=== PATIENT | female | born 1955 | race Caucasian/White ===

== ENCOUNTER 2019-05-02 13:42 | Emergency (ER) | payer MEDICARE, SELFPAY ==
[2019-05-02 14:54] VITALS: BP 157/75; PULSE 90; RESP 20; TEMP 36.4; O2SAT 100
--- NOTE | 2019-05-02 15:29 | ED.UPPEXIN ---
HPI - Extremity Injury (Upper) General Chief Complaint: Extremity Injury, Upper Stated Complaint: rhumatoid Arthritis Time Seen by Provider: 05/02/19 15:20 Source: patient and RN notes reviewed Mode of arrival: ambulatory Limitations: no limitations History of Present Illness HPI narrative: Patient presents today complaining of swelling and pain to her bilateral hands x2 weeks, worse since yesterday. States she has been diagnosed with osteoarthritis, but her doctors are suspicious that she has rheumatoid arthritis. She has an appointment with a graduate assistant athletic trainer, but not till August. She currently rates her pain 12/23 and has been taking ibuprofen with mild relief. She also has [place] for chronic migraines, but this is not providing relief. She was on a short course of steroids in January, which helped with this pain. She is requesting another course today. MD complaint: injury to: hand Related Data Home Medications Medication Instructions Recorded Confirmed cholecalciferol (vitamin D3) 1,250 50,000 unit PO WEEKLY 02/07/19 05/02/19 mcg (50,000 unit) tablet colchicine 0.6 mg tablet 0.6 mg PO DAILY 02/07/19 05/02/19 conjugated estrogens 0.625 mg 0.625 mg PO DAILY 02/07/19 05/02/19 tablet duloxetine 60 mg capsule,delayed 60 mg PO DAILY cap 02/07/19 05/02/19 release ergocalciferol (vitamin D2) 1,250 50,000 unit PO WEEKLY 02/07/19 05/02/19 mcg (50,000 unit) capsule lisinopril 20 1 tablet PO DAILY 02/07/19 05/02/19 mg-hydrochlorothiazide 12.5 mg tablet Allergies Allergy/AdvReac Type Severity Reaction Status Date / Time prochlorperazine Allergy Intermediate Chest Verified 05/02/19 15:07 tightness metoclopramide Allergy Mild Jittery Verified 05/02/19 15:07 nalbuphine Allergy Unknown Unknown Verified 05/02/19 15:07 promethazine Allergy Unknown Unknown Verified 05/02/19 15:07 sumatriptan Allergy Unknown Unknown Verified 05/02/19 15:07 Review of Systems Review of Systems: Narrative: CONSTITUTIONAL: Denies body aches, fever, chills, or sweats. EYES: Denies visual changes, redness, or discharge. ENT: Denies rhinorrhea, congestion, sore throat, or otalgia. CARDIOVASCULAR: Denies chest pain, palpitations, or edema. RESPIRATORY: Denies cough or dyspnea. GASTROINTESTINAL: Denies abdominal pain, nausea, vomiting, or diarrhea. GENITOURINARY: Denies dysuria or hematuria. SKIN: Denies rash, itching, or wounds. MUSCULOSKELETAL: Denies back pain, or myalgia.Bilateral hand and finger pain and swelling NEUROLOGIC: Denies headache, numbness, tingling, or weakness. PSYCH: Denies depression or anxiety. [facility] Past Medical History Medical History (Updated 05/02/19 @ 15:32 by Mendy Gillette, REI, ) Acute non-recurrent maxillary sinusitis Arthritis Social History Social History Smoking status: Never smoker Alcohol intake: never Comments At time of signature, I have reviewed and agree with nursing past medical, surgical, social and family history unless otherwise noted. Please see nursing chart for further information. There is no relevant family history pertinent to the presenting complaint Exam Narrative: Exam Narrative: GENERAL: Well-appearing, well-nourished, and in no acute distress. HEAD: Normocephalic, atraumatic. EYES: EOMI. No redness or drainage. Conjunctivae normal. ENT: Mucous membranes pink and moist. NECK: Normal AROM. CHEST: No respiratory distress. MUSCULOSKELETAL: Mild edema to all fingers with tenderness with palpation of the joints. Patient is unable to fully make a fist due to swelling and pain. SKIN: Warm, dry, no rash. NEURO: No focal deficits. Alert and oriented x3. Gait steady. PSYCH: Normal affect. No signs of depression or anxiety. Course Vital Signs Vital signs: Vital Signs Temperature 97.6 F 05/02/19 14:54 Pulse Rate 90 05/02/19 14:54 Respiratory Rate 20 05/02/19 14:54 Blood Pressure 157/75 H
== END 2019-05-02 15:35 | disposition home or self-care (01) ==
PROVIDERS: Emergency Provider Nurse Practitioner; PCP Family Medicine
DX: M25.541 Pain in joints of right hand (principal); M25.542 Pain in joints of left hand; M19.90 Unspecified osteoarthritis, unspecified site
CPT/HCPCS: 99213; G0463

== ENCOUNTER 2019-10-06 13:57 | Emergency (ER) | payer MEDICARE, SELFPAY ==
[2019-10-06 14:15] VITALS: BP 127/62; PULSE 88; RESP 18; TEMP 36.4; O2SAT 98
--- NOTE | 2019-10-06 14:39 | ED.GENADULT ---
HPI - General Adult General Chief complaint: Extremity Injury, Upper Stated complaint: pain and swelling in hands Time Seen by Provider: 10/06/19 14:29 Source: patient and RN notes reviewed Mode of arrival: ambulatory Limitations: no limitations History of Present Illness HPI narrative: Patient presents today with a 1 week history of severe bilateral hand pain and swelling. She has been seen at [facility] for same complaint in April and was subsequently seen by rheumatology. States she hasn't been formally diagnosed with RA but was started on Plaquenil. States she has not yet started the Plaquenil because she had some reservations, mostly due to the doctor that prescribed it. She has an appt with her PCP in 5 days. She is hoping to get started on a course of steroids today, which has helped in the past. She has been taking motrin and occasionally [place]. Reports the motrin helps more than the [place] does. MD complaint: bilateral hand pain and swelling. Related Data Home Medications Medication Instructions Recorded Confirmed colchicine 0.6 mg tablet 0.6 mg PO DAILY 02/07/19 10/06/19 conjugated estrogens 0.625 mg 0.625 mg PO DAILY 02/07/19 10/06/19 tablet duloxetine 60 mg capsule,delayed 60 mg PO DAILY cap 02/07/19 10/06/19 release lisinopril 20 1 tablet PO DAILY 02/07/19 10/06/19 mg-hydrochlorothiazide 12.5 mg tablet cholecalciferol (vitamin D3) 1,250 50,000 unit PO WEEKLY 07/11/19 10/06/19 mcg (50,000 unit) tablet Allergies Allergy/AdvReac Type Severity Reaction Status Date / Time prochlorperazine Allergy Intermediate Chest Verified 10/06/19 14:29 tightness metoclopramide Allergy Mild Jittery Verified 10/06/19 14:29 nalbuphine Allergy Unknown Unknown Verified 10/06/19 14:29 promethazine Allergy Unknown Unknown Verified 10/06/19 14:29 sumatriptan Allergy Unknown Unknown Verified 10/06/19 14:29 Review of Systems Review of Systems: Narrative: CONSTITUTIONAL: Denies body aches, fever, chills, or sweats. EYES: Denies visual changes, redness, or discharge. ENT: Denies rhinorrhea, congestion, sore throat, or otalgia. CARDIOVASCULAR: Denies chest pain, palpitations, or edema. RESPIRATORY: Denies cough or dyspnea. GASTROINTESTINAL: Denies abdominal pain, nausea, vomiting, or diarrhea. GENITOURINARY: Denies dysuria or hematuria. SKIN: Denies rash, itching, or wounds. MUSCULOSKELETAL: Denies back pain, or myalgia. +pain and swelling to bilateral finger joints. NEUROLOGIC: Denies headache, numbness, tingling, or weakness. PSYCH: Denies depression or anxiety. [facility] Past Medical History Medical History (Updated 10/06/19 @ 14:59 by Mendy Gillette, [facility], ) Acute non-recurrent maxillary sinusitis Arthritis Bilateral hand pain Carpal tunnel syndrome Chronic anxiety Inflammatory arthritis (~2014) Insomnia Seasonal allergic rhinitis Tinnitus Vitamin D insufficiency Surgical History Surgical History (Updated 09/06/19 @ 11:46 by Shabnam Nicholson MA) H/O: hysterectomy Social History Social History Smoking status: Never smoker Alcohol intake: never Comments At time of signature, I have reviewed and agree with nursing past medical, surgical, social and family history unless otherwise noted. Please see nursing chart for further information. There is no relevant family history pertinent to the presenting complaint Exam Narrative: Exam Narrative: GENERAL: Well-appearing, well-nourished, and in no acute distress. HEAD: Normocephalic, atraumatic. EYES: EOMI. No redness or drainage. Conjunctivae normal. ENT: Mucous membranes pink and moist. NECK: Normal AROM. CHEST: No respiratory distress. EXTREMITIES: Stiffness and decreased ROM of fingers when trying to make fists and extend. No redness noted to the hand or fingers. Mild swelling to the bilateral 3rd fingers and left 4th finger. Distal sensation intact. Capillary refill normal.
[2019-10-06] MEDS: methylPREDNISolone SOD SUCC 125 MG VIAL IM (14:48)
== END 2019-10-06 15:08 | disposition home or self-care (01) ==
PROVIDERS: Emergency Provider Nurse Practitioner; PCP Family Medicine
DX: M79.641 Pain in right hand (principal); M79.642 Pain in left hand; F41.9 Anxiety disorder, unspecified; E55.9 Vitamin D deficiency, unspecified
CPT/HCPCS: 96372; 99213; G0463; J2930

== ENCOUNTER 2020-01-31 09:05 | Outpatient (NON) | payer MEDICARE, SELFPAY ==
[2020-02-01 18:24] LABS: SARS-CoV-2 RNA PCR Negative
== END 2020-01-31 09:06 ==
LOC: ANHCOVIDDT 09:06
PROVIDERS: PCP Family Medicine; Visit Provider Family Medicine
DX: Z20.828 Contact with and (suspected) exposure to other viral communicable diseases (principal); J20.9 Acute bronchitis, unspecified
CPT/HCPCS: 87635; C9803; U0003

== ENCOUNTER → 2020-02-06 09:04 | Outpatient (CLI) | payer MEDICARE, SELFPAY ==
--- NOTE | ~2020-02-06 | XR_ITS ---
XR chest 2V 02/06/2020 09:24 Indication: Shortness of breath Procedure: 2 view chest Comparison: No prior studies for comparison. Findings: Calcified granuloma left upper lung. No focal air space disease, pulmonary edema, pleural e ffusion or suspected pneumothorax. The lungs are hyperinflated which is consistent with, but not diag nostic of chronic obstructive pulmonary disease. Impression: 1: No acute cardiopulmonary disease. Reviewed, dictated and finalized at location A. MAN Impression: 1: No acute cardiopulmonary disease.
== END ==
PROVIDERS: PCP Family Medicine; Visit Provider Family Medicine
DX: J20.9 Acute bronchitis, unspecified (principal)
CPT/HCPCS: 71046

== ENCOUNTER 2021-02-23 13:59 | Emergency (ER) | payer MEDICARE, SELFPAY ==
[2021-02-23 14:04] VITALS: BP 145/69; PULSE 105; RESP 20; TEMP 36.3; O2SAT 100
--- NOTE | 2021-02-23 14:14 | ED.GENADULT ---
HPI - General Adult General Chief complaint: Upper Respiratory Infection Stated complaint: upper respiratory Time Seen by Provider: 02/23/21 14:16 Source: patient Mode of arrival: ambulatory Limitations: no limitations History of Present Illness HPI narrative: 65-year-old female patient presents to the [facility] with complaints of upper respiratory symptoms for the past 3 days. Patient states she has had a low-grade fever of about 100, congestion, runny nose and slight cough. Little bit of shortness of breath. Patient states she is fully vaccinated against Covid. Denies having a booster shot. Patient states she has had her influenza shot. Patient states she just been taking [id number] ibuprofen for her symptoms. Related Data Home Medications Medication Instructions Recorded Confirmed leflunomide 10 mg tablet 10 mg PO DAILY 07/17/20 12/13/20 Allergies Allergy/AdvReac Type Severity Reaction Status Date / Time prochlorperazine Allergy Intermediate Chest Verified 02/23/21 14:21 tightness metoclopramide Allergy Mild Jittery Verified 02/23/21 14:21 nalbuphine Allergy Unknown Unknown Verified 02/23/21 14:21 promethazine Allergy Unknown Unknown Verified 02/23/21 14:21 sumatriptan Allergy Unknown Unknown Verified 02/23/21 14:21 Review of Systems Review of Systems: CONSTITUTIONAL: Positive subjective fever, denies chills, or sweats. Positive body aches EYES: Denies visual changes, redness, or discharge. ENT: Positive rhinorrhea, congestion, denies sore throat, or otalgia. CARDIOVASCULAR: Denies chest pain, palpitations, or edema. RESPIRATORY: Positive mild cough, positive dyspnea. GASTROINTESTINAL: Denies abdominal pain, nausea, vomiting, or diarrhea. GENITOURINARY: Denies dysuria or hematuria. SKIN: Denies rash or itching. MUSCULOSKELETAL: Denies back pain, joint pain, or myalgia. NEUROLOGIC: Denies headache, numbness, or weakness. PSYCHIATRIC: Denies anxiety or depression. [facility] Past Medical History Medical History (Updated 02/23/21 @ 14:45 by REI Temple) Abnormal mammogram normal mammogram on 01/15/2021 with recheck in 1 year Abnormal serum iron level Abscessed tooth Acute bronchitis Acute non-recurrent maxillary sinusitis Anemia Arthritis Bilateral hand pain BMI 24.0-24.9, adult Carpal tunnel syndrome Chronic anxiety Cough Exposure to COVID-19 virus Hypertension Inflammatory arthritis (~2015) Insomnia Rheumatoid arthritis Seasonal allergic rhinitis Tinnitus UTI (urinary tract infection) Vitamin D insufficiency Surgical History Surgical History H/O: hysterectomy Family History Family History Mother Patient's mother is , Onset Age: 86 Father Family history of malignant neoplasm of brain, Onset Age: 58 Social History Social History Smoking status: Never smoker Alcohol intake: never Substance use: never Substance use type: does not use Comments At the time of my signature I agree with nursing past medical history, surgical, social, and family history. There is no relevant family history pertinent to the presenting complaint. Exam Narrative: GENERAL: Well-appearing, well-nourished, and in no acute distress. HEAD: Normocephalic, atraumatic. EYES: PERRLA and EOMI. ENT: Nares clear, no rhinorrhea or epistaxis. Mucous membranes moist. Posterior pharynx with no erythema, tonsil management, exudates or lesions present. Bilateral TMs are clear with no erythema or foreign bodies in the canal. NECK: Supple. No lymphadenopathy CHEST: Clear to auscultation. No respiratory distress. HEART: Regular rate and rhythm. No murmur heard. Normal peripheral pulses. ABDOMEN: Soft, nontender, nondistended, normal active bowel sounds. EXTREMITIES: Normal range of motion. No edema. SKIN: Warm, dry,
[2021-02-25 14:20] LABS: SARS-CoV-2 RNA PCR Negative
== END 2021-02-23 14:45 | disposition home or self-care (01) ==
PROVIDERS: Emergency Provider Nurse Practitioner Family; PCP Family Medicine
DX: J06.9 Acute upper respiratory infection, unspecified (principal); I10 Essential (primary) hypertension; Z20.822 Contact with and (suspected) exposure to COVID-19
CPT/HCPCS: 87426; 87804; 99213; C9803; G0463; U0003; U0005

== ENCOUNTER 2021-05-25 10:20 | Emergency (ER) | payer MEDICARE, SELFPAY ==
[2021-05-25 10:26] VITALS: BP 151/74; PULSE 94; RESP 16; TEMP 36.2; O2SAT 98
[2021-05-25 10:38] VITALS: BP 151/74; PULSE 94; RESP 16; TEMP 36.2; O2SAT 98
== END 2021-05-25 10:39 | disposition left against medical advice (07) ==
LOC: EXPBETH 10:23
PROVIDERS: Emergency Provider Nurse Practitioner Family; PCP Family Medicine
DX: Z53.21 Procedure and treatment not carried out due to patient leaving prior to being seen by health care provider (principal)
CPT/HCPCS: 99199

== ENCOUNTER 2021-08-06 10:17 | Emergency (ER) | payer MEDICARE, SELFPAY ==
[2021-08-06 10:21] VITALS: BP 144/74; PULSE 98; RESP 16; TEMP 36.3; O2SAT 99
--- NOTE | 2021-08-06 11:25 | ED.URI ---
HPI - URI/Sore Throat General Chief Complaint: Upper Respiratory Infection Stated Complaint: sore throat achey chest congestion Time Seen by Provider: 08/06/21 11:26 Source: patient and RN notes reviewed Mode of arrival: ambulatory Limitations: no limitations History of Present Illness HPI Narrative: 66-year-old female with history of rheumatoid arthritis presents with concern for 3-day history of sore throat, headache, body aches, cough. She reports she took a COVID test at home which was negative. She has been using ibuprofen to treat her symptoms, reports it helps her headache but not other symptoms. She denies fever, shortness of breath, nasal congestion. Denies known sick contacts. MD elicited complaint: cough and sore throat Related Data Allergies Allergy/AdvReac Type Severity Reaction Status Date / Time prochlorperazine Allergy Intermediate Chest Verified 08/06/21 10:45 tightness metoclopramide Allergy Mild Jittery Verified 08/06/21 10:45 nalbuphine Allergy Unknown Rash Verified 08/06/21 10:45 promethazine Allergy Unknown Rash Verified 08/06/21 10:45 sumatriptan Allergy Unknown Rash Verified 08/06/21 10:45 Review of Systems Review of Systems: CONSTITUTIONAL: Report malaise. Denies chills, sweats, or fever. EYES: Denies visual changes, redness, or discharge. ENT: Reports rhinorrhea, sore throat. Denies congestion, sinus pain, otalgia CARDIOVASCULAR: Denies chest pain, palpitations, or edema. RESPIRATORY: Reports cough. Denies dyspnea. GASTROINTESTINAL: Denies abdominal pain, nausea, vomiting, diarrhea SKIN: Denies rash or itching. MUSCULOSKELETAL: Denies myalgia. NEUROLOGIC: Reports headache. All systems reviewed & are unremarkable except as noted in HPI and below PMFSH Past Medical History Medical History Abnormal mammogram normal mammogram on 01/15/2021 with recheck in 1 year Abnormal serum iron level Abscessed tooth Acute bronchitis Acute non-recurrent maxillary sinusitis Anemia Arthritis Bilateral hand pain BMI 24.0-24.9, adult Carpal tunnel syndrome Chronic anxiety Cough Exposure to COVID-19 virus Hypertension Inflammatory arthritis (~2014) Insomnia Rheumatoid arthritis Seasonal allergic rhinitis Tinnitus UTI (urinary tract infection) Vitamin D insufficiency (~01/2021) Surgical History Surgical History H/O: hysterectomy Family History Family History Mother Patient's mother is , Onset Age: 86 Father Family history of malignant neoplasm of brain, Onset Age: 58 Social History Social History Smoking status: Never smoker Alcohol intake: never Substance use: never Substance use type: does not use Comments At time of signature, agree with nursing past medical, surgical, social and family history. There is no relevant family history pertinent to the presenting complaint Exam Narrative: GENERAL: Nontoxic-appearing and in no acute distress. HEAD: Normocephalic EYES: PERRLA, conjunctivae clear ENT: Nares clear, turbinates edematous and erythematous, clear discharge. Mucous membranes moist. TM pearly l[place]o with dull light reflex bilaterally; no tragal tenderness. Oropharynx not erythematous without lesions. Tonsils not enlarged and without exudate, no drooling, no hoarseness, no trismus, uvula midline. NECK: Supple. No lymphadenopathy CHEST: Clear to auscultation, breath sounds equal. No wheezing, rhonchi, rales, or stridor. No respiratory distress, speaks in full sentences. HEART: Regular rate and rhythm. No murmur heard. SKIN: Warm, dry, no rash. NEURO: Alert and oriented x3. PSYCH: Normal mood and affect Course Course Emergency Course: Patient is aware of diagnosis, understands and agrees to treatment plan. Anticipatory guidance given. Patient agrees to follow-up as directe
== END 2021-08-06 11:38 | disposition home or self-care (01) ==
PROVIDERS: Emergency Provider Nurse Practitioner; PCP Family Medicine
DX: B34.9 Viral infection, unspecified (principal); Z20.822 Contact with and (suspected) exposure to COVID-19; M19.90 Unspecified osteoarthritis, unspecified site; I10 Essential (primary) hypertension; M06.9 Rheumatoid arthritis, unspecified
CPT/HCPCS: 87081; 87426; 87804; 87880; 99213; C9803; G0463

== ENCOUNTER 2022-02-02 12:53 | Emergency (ER) | payer MEDICARE, SELFPAY ==
--- NOTE | ~2022-02-02 | XR_ITS ---
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 RESULT: Lines, tubes, and devices: None. Lungs and pleura: No focal consolidation or pneumothorax. Right upper lobe scar. Left upper lobe marta cified granuloma. Mild bilateral upper lung fibrolinear scarring with hilar retraction. Cardiomediastinal silhouette: Stable. Other: No acute osseous or upper abdominal finding. IMPRESSION: No acute cardiopulmonary process. Reviewed, dictated and finalized at location K. WRAPPING MACHINE OPERATOR
--- NOTE | ~2022-02-02 | CT_ITS ---
EXAMINATION: CTA chest PE protocol DATE: 02/02/2022 17:52 INDICATION: dimer elevation TECHNIQUE: Computed tomography angiography (CTA) of the chest was performed with 100 mL Omnipaque-350 intravenous contrast timed to evaluate the pulmonary arteries. Coronal maximum intensity projection 3D-reconstructions were created by the technologist. The dose-length product (DLP) was 215.46 mGy-cm. Automated exposure control and iterative reconstruction technique were employed. COMPARISON: X-ray chest, same date. FINDINGS: Lung parenchyma and airways: Small areas of tree-in-bud opacities in the posterior left upper lobe an d lateral mid left lower lobe. Calcified left upper lobe granuloma. Pleura: Unremarkable. Thoracic inlet, axillae and chest wall: Unremarkable. Thoracic aorta: Mild arch calcification. Mediastinum: Small hiatal hernia. Heart and pericardium: Normal. Coronary artery calcifications: Absent. Upper abdomen: No significant finding. Granulomatous calcifications in the spleen. Bilateral renal co rtical atrophy. Bones: No acute osseous finding. Pulmonary arteries: Study quality: Adequate. No pulmonary emboli detected. IMPRESSION: No CT evidence of acute pulmonary embolus. Small areas of tree and bud opacities in the left lung, as can be seen with atypical infection (MAC, TB, fungal), ABPA, airways disease (CF, bronchiectasis), a nd aspiration. Reviewed, dictated and finalized at location K. MIXER MACHINE IMPRESSION: No CT evidence of acute pulmonary embolus. Small areas of tree and bud opacitie s in the left lung, as can be seen with atypical infection (MAC, TB, fungal), A BPA, airways disease (CF, bronchiectasis), and aspiration.
[2022-02-02 13:37] VITALS: BP 120/74; PULSE 130; RESP 16; TEMP 36.2; O2SAT 98
[2022-02-02] MEDS: LACTATED RINGERS 1,000 ML 500 ML IV CONT (16:03)
[2022-02-02] MEDS: KETOROLAC 15 MG/ML VIAL (*BKC) IV PUSH (16:23)
[2022-02-02 16:27] VITALS: BP 147/80; PULSE 88; RESP 18; O2SAT 100
[2022-02-02 16:38] LABS: D Dimer 0.74 ug/mL (<0.48)
[2022-02-02 17:03] VITALS: PULSE 85
[2022-02-02 17:45] LABS: Estimated CRCL calculation 38 ml/min; Estimated Glomerular Filt Rate 55
--- NOTE | 2022-02-02 18:44 | ED.GENADULT ---
HPI - General Adult General Chief complaint: Weakness Stated complaint: Covid+, thinks she is dehydrated Time Seen by Provider: 02/02/22 14:55 History of Present Illness HPI narrative: 66-year-old female presents for evaluation. Patient was diagnosed with COVID 1911 days ago and still feels a dull headache, rundown, body aches and a dry cough. Patient states the symptoms have improved from how poorly she felt a few days ago and her headache is mostly resolved although her family urged her to come in due to the duration of her symptoms. Patient has had a COVID-vaccine and booster. Related Data Allergies Allergy/AdvReac Type Severity Reaction Status Date / Time prochlorperazine Allergy Intermediate Chest Verified 02/02/22 15:52 tightness nalbuphine Allergy Unknown Rash Verified 02/02/22 15:40 promethazine Allergy Unknown Rash Verified 02/02/22 15:40 sumatriptan Allergy Unknown Rash Verified 02/02/22 15:40 metoclopramide AdvReac Mild Jittery Verified 02/02/22 15:52 Review of Systems Review of Systems: CONSTITUTIONAL: Denies fever, chills, or sweats. EYES: Denies visual changes, redness, or discharge. ENT: Denies rhinorrhea, congestion, sore throat, or otalgia. CARDIOVASCULAR: Denies chest pain, palpitations, or edema. RESPIRATORY: Denies cough or dyspnea. GASTROINTESTINAL: Denies abdominal pain, nausea, vomiting, or diarrhea. GENITOURINARY: Denies dysuria or hematuria. SKIN: Denies rash or itching. MUSCULOSKELETAL: Denies back pain, joint pain, or myalgia. NEUROLOGIC: Denies headache, numbness, or weakness. PSYCHIATRIC: Denies anxiety or depression. [facility] Past Medical History Medical History Abnormal mammogram normal mammogram on 01/15/2021 with recheck in 1 year Abnormal serum iron level Total iron elevated at 217 with 58% saturation and ferritin normal at 32 on 11/25/2021 with hemoglobin 14.3. Abscessed tooth Acute bronchitis Acute non-recurrent maxillary sinusitis Anemia Hemoglobin normal at 14.3 with vitamin B12 770 and folic acid 11.3 with iron 217 on 11/25/2021. Arthritis Bilateral hand pain BMI 24.0-24.9, adult BMI 25.0-25.9,adult BMI 26.0-26.9,adult Carpal tunnel syndrome Chronic anxiety Cough COVID 01/22/22 Exposure to COVID-19 virus Hypertension Inflammatory arthritis (~2014) Insomnia Overweight (BMI 25.0-29.9) Rheumatoid arthritis Seasonal allergic rhinitis Tinnitus UTI (urinary tract infection) Vitamin D insufficiency (~01/2021) Surgical History Surgical History H/O: hysterectomy Family History Family History Mother Patient's mother is , Onset Age: 86 Father Family history of malignant neoplasm of brain, Onset Age: 58 Social History Social History (Updated 01/09/22 @ 10:13 by Manjula Quigley MA) Smoking status: Never smoker Alcohol intake: never Substance use: never Substance use type: does not use Lack of Transportation: No Lack of Food: Never True Current Housing: I Have Housing Concerned About Future Housing: No Difficulty Paying Gas/Electric Bills: No Difficulty Paying for Meds: No Currently Unemployed: No Education: High School Diploma/GED Difficulty w/ Childcare or Family Care: No Exam Narrative: GENERAL: Well-appearing, well-nourished, and in no acute distress. HEAD: Normocephalic, atraumatic. EYES: PERRLA and EOMI. ENT: Nares clear, no rhinorrhea or epistaxis. Mucous membranes moist. NECK: Supple. CHEST: Clear to auscultation. No respiratory distress. HEART: Tachycardic rate and rhythm. No murmur heard. Normal peripheral pulses. ABDOMEN: Soft, nontender, nondistended, normal active bowel sounds. EXTREMITIES: Normal range of motion. No edema. SKIN: Warm, dry, no rash. NEURO: No focal deficits. Alert and oriented x3. PSYCH: Normal mood and affect. Course Vital Signs Vit
[2022-02-02 19:19] VITALS: BP 152/85; PULSE 80; RESP 18; O2SAT 99
== END 2022-02-02 19:21 | disposition home or self-care (01) ==
PROVIDERS: Emergency Provider Emergency Medicine; PCP Family Medicine
DX: U07.1 COVID-19 (principal); I10 Essential (primary) hypertension; E55.9 Vitamin D deficiency, unspecified; M06.9 Rheumatoid arthritis, unspecified; M19.90 Unspecified osteoarthritis, unspecified site; F41.9 Anxiety disorder, unspecified; E66.3 Overweight; Z68.23 Body mass index [BMI] 23.0-23.9, adult; Z87.440 Personal history of urinary (tract) infections; Z86.2 Personal history of diseases of the blood and blood-forming organs and certain disorders involving the immune mechanism; Z90.710 Acquired absence of both cervix and uterus
CPT/HCPCS: 36415; 71045; 71275; 85380; 96361; 96374; 99284; J1885; J7120; Q9967

== ENCOUNTER 2022-03-01 12:58 | Emergency (ER) | payer MEDICARE, SELFPAY ==
[2022-03-01 13:09] VITALS: BP 153/82; PULSE 95; RESP 16; TEMP 36.2; O2SAT 98
--- NOTE | 2022-03-01 13:45 | ED.GENADULT ---
HPI - General Adult General Chief complaint: Upper Respiratory Infection Stated complaint: sinus / uti Source: patient Mode of arrival: ambulatory Limitations: no limitations History of Present Illness HPI narrative: Patient presents for evaluation of sick symptoms since yesterday. Symptoms include sinus congestion, postnasal drainage, right-sided otalgia, sore throat, body aches, right-sided frontal headache. She denies any fever, chills, nausea, vomiting, diarrhea, cough, shortness of breath. She has had several points of sick contacts recently, including influenza. 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 She does not smoke. She had COVID last month. She has also had some urinary symptoms for several days including dysuria and urinary frequency. She states frequency has improved and now she has hesitancy. No abdominal pain or low back pain. She has a hx of recurrent UTI's. Related Data Home Medications Medication Instructions Recorded Confirmed prednisone 5 mg tablet mg 03/01/22 Allergies Allergy/AdvReac Type Severity Reaction Status Date / Time prochlorperazine Allergy Intermediate Chest Verified 02/02/22 15:52 tightness nalbuphine Allergy Unknown Rash Verified 02/02/22 15:40 promethazine Allergy Unknown Rash Verified 02/02/22 15:40 sumatriptan Allergy Unknown Rash Verified 02/02/22 15:40 metoclopramide AdvReac Mild Jittery Verified 02/02/22 15:52 Review of Systems Review of Systems: CONSTITUTIONAL: Denies fever, chills, or sweats. EYES: Denies visual changes, redness, or discharge. ENT: Reports sinus congestion, postnasal drainage, sore throat, right-sided otalgia. CARDIOVASCULAR: Denies chest pain, palpitations, or edema. RESPIRATORY: Denies cough or dyspnea. GASTROINTESTINAL: Denies abdominal pain, nausea, vomiting, or diarrhea. GENITOURINARY: Reports recent urinary frequency, now resolved. Reports dysuria and urinary hesitancy.. SKIN: Denies rash or itching. MUSCULOSKELETAL: Reports generalized body aches. NEUROLOGIC: Reports headache. Denies numbness, dizziness, or weakness. PSYCHIATRIC: Denies anxiety or depression. [facility] Past Medical History Medical History Abnormal mammogram normal mammogram on 01/15/2021 with recheck in 1 year Abnormal serum iron level Total iron elevated at 217 with 58% saturation and ferritin normal at 32 on 11/25/2021 with hemoglobin 14.3. Abscessed tooth Acute bronchitis Acute non-recurrent maxillary sinusitis Anemia Hemoglobin normal at 14.3 with vitamin B12 770 and folic acid 11.3 with iron 217 on 11/25/2021. Arthritis Bilateral hand pain BMI 24.0-24.9, adult BMI 25.0-25.9,adult BMI 26.0-26.9,adult Carpal tunnel syndrome Chronic anxiety Cough COVID 01/22/22 Exposure to COVID-19 virus Hypertension Inflammatory arthritis (~2014) Insomnia Overweight (BMI 25.0-29.9) Rheumatoid arthritis Seasonal allergic rhinitis Tinnitus UTI (urinary tract infection) Vitamin D insufficiency (~01/2021) Surgical History Surgical History H/O: hysterectomy Family History Family History Mother Patient's mother is , Onset Age: 86 Father Family history of malignant neoplasm of brain, Onset Age: 58 Social History Social History (Updated 01/09/22 @ 10:13 by Manjula uQigley MA) Smoking status: Never smoker Alcohol intake: never Substance use: never Substance use type: does not use Lack of Transportation: No Lack of Food: Never True Current Housing: I Have Housing Concerned About Future Housing: No Difficulty Paying Gas/Electric Bills: No Difficulty Paying for Meds: No Currently Unemployed: No Education: High School Diploma/GED Difficulty w/ Childcare or Family Care: No Course Course Emergency Course: This i
== END 2022-03-01 14:39 | disposition home or self-care (01) ==
PROVIDERS: Emergency Provider Nurse Practitioner; PCP Family Medicine
DX: J06.9 Acute upper respiratory infection, unspecified (principal); R30.0 Dysuria; M19.90 Unspecified osteoarthritis, unspecified site; Z86.16 Personal history of COVID-19; I10 Essential (primary) hypertension; M06.9 Rheumatoid arthritis, unspecified
CPT/HCPCS: 87081; 87804; 99213; G0463

== ENCOUNTER 2022-04-17 10:38 | Outpatient (CLI) | payer MEDICARE, SELFPAY ==
--- NOTE | ~2022-04-17 | CT_ITS ---
EXAMINATION: CT chest high resolution wo pr DATE: 04/17/2022 10:54 INDICATION: Shortness of breath TECHNIQUE: Computed tomography (CT) of the chest was performed without intravenous contrast. The dose -length product (DLP) was 161.73 mGy-cm. 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 COMPARISON: 02/02/2022 FINDINGS: The previously described airspace opacities of the left upper and lower lobes have resolved , consistent with resolved infection/inflammation. The lungs are free of acute opacities. No pleural effusion or pneumothorax. No pathologically enlarged thoracic lymph nodes are identified. The heart s ize is normal. There is moderate thoracic spondylosis. Calcified pulmonary nodules are consistent wit h old granulomatous disease. A small hiatal hernia is noted. Punctate calcifications in otherwise nor mal appearing liver and spleen likely represent healed granulomatous disease. IMPRESSION: 1. Resolved airspace opacities of the left lung, consistent with resolved infection/inflammation. Reviewed, dictated and finalized at location L. [facility] IMPRESSION: 1. Resolved airspace opacities of the left lung, consistent with resolved infec tion/inflammation.
== END 2022-04-17 10:39 ==
LOC: MICIMG 10:39
PROVIDERS: PCP Family Medicine; Visit Provider Family Medicine
DX: R06.00 Dyspnea, unspecified (principal); U09.9 Post COVID-19 condition, unspecified; R91.8 Other nonspecific abnormal finding of lung field
CPT/HCPCS: 71250

== ENCOUNTER 2022-09-04 09:24 | Emergency (ER) | payer MEDICARE, SELFPAY ==
[2022-09-04 09:28] VITALS: BP 130/72; PULSE 83; RESP 20; TEMP 36.6; O2SAT 98
[2022-09-04 09:40] VITALS: O2SAT 98
--- NOTE | 2022-09-04 09:42 | ED.SKABFB ---
HPI - Skin/Abscess/Foreign Bdy General Chief complaint: Skin/Abscess/Foreign Body Stated complaint: Wound on left leg History of Present Illness HPI narrative: Pt is a 67 y/o female, PMHx of RA and gout, presents to via POV with left anterior marquez wound that has delayed healing. 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 she reports sheering/skin tear injuries that she has treated at home with Peroxide, soap and water cleaning and topical antibiotic ointment. She notes over the past couple of days, the area has become painful and the wound is starting to ooze. She denies associated fevers or chills, she denies FB risk and her tetanus is UTD Related Data Home Medications Medication Instructions Recorded Confirmed methotrexate sodium 2.5 mg tablet 2.5 mg PO 4XW 03/12/22 09/04/22 prednisone 5 mg tablet 5 mg PO DAILY 08/21/22 09/04/22 Allergies Allergy/AdvReac Type Severity Reaction Status Date / Time prochlorperazine Allergy Intermediate Chest Verified 09/04/22 09:39 tightness nalbuphine Allergy Unknown Rash Verified 09/04/22 09:39 promethazine Allergy Unknown Rash Verified 09/04/22 09:39 sumatriptan Allergy Unknown Rash Verified 09/04/22 09:39 metoclopramide AdvReac Mild Jittery Verified 09/04/22 09:39 Review of Systems Integumentary/Breasts: Comments: refer to [facility] Past Medical History Medical History Abnormal mammogram normal mammogram on 01/15/2021 with recheck in 1 year. mammogram normal 03/19/2022 with recheck in 1 year for Abnormal serum iron level Total iron elevated at 217 with 58% saturation and ferritin normal at 32 on 11/25/2021 with hemoglobin 14.3. Abscessed tooth Acute bronchitis Acute non-recurrent maxillary sinusitis Anemia Hemoglobin normal at 14.3 with vitamin B12 770 and folic acid 11.3 with iron 217 on 11/25/2021. Arthritis Bilateral hand pain BMI 24.0-24.9, adult BMI 25.0-25.9,adult BMI 26.0-26.9,adult BMI 27.0-27.9,adult BMI 28.0-28.9,adult Carpal tunnel syndrome Chronic anxiety Cough COVID 01/22/22 Exposure to COVID-19 virus Hypertension Inflammatory arthritis (~2014) Insomnia Overweight (BMI 25.0-29.9) Persistent dyspnea after COVID-19 (03/24/22) with abnormal CT of the chest 02/02/2022.Repeat high-resolution CT of the chest on 04/17/2022 revealed resolution of previously described infectious changes. Normal CT with old granulomatous changes noted. Rheumatoid arthritis Seasonal allergic rhinitis Tinnitus UTI (urinary tract infection) Vitamin D insufficiency (~01/2021) Surgical History Surgical History H/O: hysterectomy Family History Family History Mother Patient's mother is , Onset Age: 86 Father Family history of malignant neoplasm of brain, Onset Age: 58 Social History Social History Smoking status: Never smoker Alcohol intake: never Substance use: never Substance use type: does not use Lack of Transportation: No Lack of Food: Never True Current Housing: I Have Housing Concerned About Future Housing: No Difficulty Paying Gas/Electric Bills: No Difficulty Paying for Meds: No Currently Unemployed: No Education: High School Diploma/GED Difficulty w/ Childcare or Family Care: No Exam Const: General: cooperative, healthy appearing, comfortable, no acute distress, well developed, alert, awake and Physically active HENMT: Head: normal to inspection Mouth: Yes Normal oral and palatal mucosa present Throat: posterior oropharynx normal Eyes: General: appearance normal, both eyes and all related structures Visual Heath: normal visual heath by confrontation Alignment and Position: alignment normal Co
== END 2022-09-04 10:02 | disposition home or self-care (01) ==
PROVIDERS: Emergency Provider Nurse Practitioner Family; PCP Family Medicine
DX: L03.116 Cellulitis of left lower limb (principal); M19.90 Unspecified osteoarthritis, unspecified site; I10 Essential (primary) hypertension; M06.9 Rheumatoid arthritis, unspecified; E55.9 Vitamin D deficiency, unspecified; Z86.16 Personal history of COVID-19
CPT/HCPCS: 99213; G0463

== ENCOUNTER 2022-09-05 16:53 | Emergency (ER) | payer MEDICARE, SELFPAY ==
[2022-09-05 16:53] VITALS: BP 181/73; PULSE 97; RESP 20; TEMP 36.6; O2SAT 96
--- NOTE | 2022-09-05 17:11 | ED.WOUNDLAC ---
HPI - Wound/Laceration General Chief Complaint: Wound/Laceration Stated Complaint: wound on left leg Time Seen by Provider: 09/05/22 16:58 History of Present Illness HPI narrative: Patient is a 67-year-old female evaluation of a wound to her left lower extremity. 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 About 3 days ago she started to notice a redness develop around the scab and tenderness to palpation. She presented to an urgent care yesterday and was prescribed doxycycline. Patient states that immediately after taking the pill of doxycycline she got nauseated and threw up and has been unable to tolerate this medicine. She denies any fevers, chills, abdominal pain, numbness, tingling or weakness of the extremity. Related Data Home Medications Medication Instructions Recorded Confirmed methotrexate sodium 2.5 mg tablet 2.5 mg PO 4XW 03/12/22 09/04/22 prednisone 5 mg tablet 5 mg PO DAILY 08/21/22 09/04/22 Allergies Allergy/AdvReac Type Severity Reaction Status Date / Time prochlorperazine Allergy Intermediate Chest Verified 09/04/22 09:39 tightness nalbuphine Allergy Unknown Rash Verified 09/04/22 09:39 promethazine Allergy Unknown Rash Verified 09/04/22 09:39 sumatriptan Allergy Unknown Rash Verified 09/04/22 09:39 metoclopramide AdvReac Mild Jittery Verified 09/04/22 09:39 Review of Systems Review of Systems: Gen.: Denies fevers or chills Eyes: Denies eye pain or visual change ENT: Denies congestion Respiratory: Denies shortness of breath or cough CV: Denies chest pain or palpitations GI: Denies abdominal pain nausea, emesis or diarrhea denies burning, urgency, frequency or hematuria Musculoskeletal: Denies back pain or muscle pain Neuro: Denies numbness, tingling, weakness or focal weakness Skin: Reports redness to left lower extremity Except as documented, all other systems reviewed and negative PMFSH Past Medical History Medical History Abnormal mammogram normal mammogram on 01/15/2021 with recheck in 1 year. mammogram normal 03/19/2022 with recheck in 1 year for Abnormal serum iron level Total iron elevated at 217 with 58% saturation and ferritin normal at 32 on 11/25/2021 with hemoglobin 14.3. Abscessed tooth Acute bronchitis Acute non-recurrent maxillary sinusitis Anemia Hemoglobin normal at 14.3 with vitamin B12 770 and folic acid 11.3 with iron 217 on 11/25/2021. Arthritis Bilateral hand pain BMI 24.0-24.9, adult BMI 25.0-25.9,adult BMI 26.0-26.9,adult BMI 27.0-27.9,adult BMI 28.0-28.9,adult Carpal tunnel syndrome Chronic anxiety Cough COVID 01/22/22 Exposure to COVID-19 virus Hypertension Inflammatory arthritis (~2014) Insomnia Overweight (BMI 25.0-29.9) Persistent dyspnea after COVID-19 (03/24/22) with abnormal CT of the chest 02/02/2022.Repeat high-resolution CT of the chest on 04/17/2022 revealed resolution of previously described infectious changes. Normal CT with old granulomatous changes noted. Rheumatoid arthritis Seasonal allergic rhinitis Tinnitus UTI (urinary tract infection) Vitamin D insufficiency (~01/2021) Surgical History Surgical History H/O: hysterectomy Family History Family History Mother Patient's mother is , Onset Age: 86 Father Family history of malignant neoplasm of brain, Onset Age: 58 Social History Social History Smoking status: Never smoker Alcohol intake: never Substance use: never Substance use type: does not use Lack of Transportation: No Lack of Food: Never True Current Housing: I Have Housing Concerned About Future Housing: No Difficulty Paying Gas/Electric Bills: No Difficulty Paying for Meds: No Currently Unemployed: No
[2022-09-05 17:15] VITALS: BP 142/83; PULSE 76; RESP 16; O2SAT 100
== END 2022-09-05 17:21 | disposition home or self-care (01) ==
LOC: ANHED 17:18
PROVIDERS: Emergency Provider Physician Assistant; PCP Family Medicine
DX: L03.116 Cellulitis of left lower limb (principal); W22.09XA Striking against other stationary object, initial encounter; I10 Essential (primary) hypertension
CPT/HCPCS: 99283

== ENCOUNTER 2022-10-24 09:56 | Emergency (ER) | payer MEDICARE, SELFPAY ==
--- NOTE | ~2022-10-24 | XR_ITS ---
Clinical Indication: Dizziness AP and lateral views of the chest: Comparison: 02/02/2022 Findings: Stable calcified left upper lobe granuloma present. The lungs are otherwise clear, without evidence of focal consolidation or pleural effusion. Cardiomediastinal silhouette is within normal l imits. Bones and soft tissues are unremarkable. Impression: No significant abnormality seen. Reviewed, dictated and finalized at location . Impression: No significant abnormality seen.
[2022-10-24 10:02] VITALS: BP 223/90; PULSE 97; RESP 16; TEMP 36.5; O2SAT 98
--- NOTE | 2022-10-24 10:09 | ECG_ITS ---
Measurements Intervals [place] Rate: 92 P: 58 PA: 127 QRS: 60 QRSD: 85 T: 48 QT: 342 QTc: 424 Interpretive Statements SINUS RHYTHM NO PREVIOUS ECG AVAILABLE FOR COMPARISON Electronically Signed On 10-24-2022 14:26:27 CDT by David Chu M.D.
[2022-10-24 10:24] LABS: Basophils Absolute Auto 0.1 K/mm3 (0.0-0.1); Basophils Percent Auto 0.6 % (0.2-1.2); Eosinophils Absolute Auto 0.2 K/mm3 (0-0.3); Eosinophils Percent Auto 1.5 % (0-4.4); Hematocrit 40.1 % (37.0-47.0); Hemoglobin 13.4 g/dL (12.0-15.0); Immature Granulocyte Absolute 0.02 K/mm3 (0.00-0.031); Immature Granulocyte Percent A 0.2 % (0-0.5); Lymphocytes Absolute Auto 4.06 K/mm3 (0.9-3.2); Lymphocytes Percent Auto 40.9 % (18.3-44.2); Mean Corpuscular HGB Conc 33.4 g/dl (32-36); Mean Corpuscular Volume 95.7 fl (80-100); Mean Platelet Volume 9.8 fl (7.4-10.4); Monocytes Percent Auto 9.9 % (2.6-8.5); Neutrophils Absolute Auto 4.7 K/mm3 (1.3-6.7); Neutrophils Percent Auto 46.9 % (45.5-73.1); Platelet Count Result 306 k/mm3 (150-375); Red Blood Count 4.19 M/mm3 (4.2-5.4); Red Cell Distribution Width 13.1 % (11.5-14.5); White Blood Count 9.9 K/mm3 (4.5-10.0)
[2022-10-24 10:34] LABS: Alanine Aminotransferase 24 U/L (6-35); Alkaline Phosphatase 65 U/L (38-126); Anion Gap 5 mmol/L (8-16); Aspartate Amino Transferase 43 U/L (14-36); Bilirubin,Total 0.8 mg/dL (0.2-1.3); Blood Urea Nitrogen 19 mg/dL (7-17); Calcium 8.9 mg/dL (8.4-10.2); Carbon Dioxide 25 mmol/L (22-30); Chloride 104 mmol/L (98-107); Estimated CRCL calculation 52 ml/min; Estimated Glomerular Filt Rate > 60; Glucose 93 mg/dL (65-110); Lipase 50 U/L (23-300); Potassium 3.4 mmol/L (3.4-5.0); Sodium 134 mmol/L (137-145)
[2022-10-24 10:35] LABS: Prothrombin Time 13.5 Seconds (11.1-14.7)
[2022-10-24 10:45] LABS: Troponin I < 0.012 ng/mL (0.000-0.034)
[2022-10-24] MEDS: SODIUM CHLORIDE 0.9% IV 1,000 ML 999 ML IV CONT (11:13)
[2022-10-24] MEDS: ONDANSETRON INJ 4 MG/2 ML VIAL IV PUSH (11:15)
[2022-10-24] MEDS: diphenhydrAMINE HCl INJ 50 MG/ML VIAL 25 MG IV PUSH (11:16)
[2022-10-24] MEDS: KETOROLAC 30 MG/ML VIAL (*BKC) IV PUSH (11:18)
--- NOTE | 2022-10-24 11:54 | PC.NURSE ---
Pt and pts family requesting pt be moved to a private room d/t migraine sopt can have lights off. Instructed will turn lights off when other pt is settled.
--- NOTE | 2022-10-24 12:15 | ED.DIZZY ---
HPI - Dizziness General Chief Complaint: Dizziness Stated Complaint: dizzy Time Seen by Provider: 10/24/22 10:18 History of Present Illness HPI Narrative: This is a 67-year-old female, with past history of migraines, presents to the emergency department with dizziness and headache. Patient states on waking this morning and sitting forward she felt a sudden onset vertigo. She denies previous episodes like this before but states her mother has history of vertigo as well. She states every time she changes position rapidly she gets this sensation. She describes her migraine as throbbing and diffuse, similar to previous migraines and not associated with weakness, numbness or loss of vision. Related Data Home Medications Medication Instructions Recorded Confirmed methotrexate sodium 2.5 mg tablet 2.5 mg PO 4XW 03/12/22 10/01/22 prednisone 5 mg tablet 5 mg PO DAILY PRN arthritis 10/01/22 10/01/22 Allergies Allergy/AdvReac Type Severity Reaction Status Date / Time prochlorperazine Allergy Intermediate Chest Verified 10/24/22 10:09 tightness nalbuphine Allergy Unknown Rash Verified 10/24/22 10:09 promethazine Allergy Unknown Rash Verified 10/24/22 10:09 sumatriptan Allergy Unknown Rash Verified 10/24/22 10:09 metoclopramide AdvReac Mild Jittery Verified 10/24/22 10:09 Review of Systems Review of Systems: CONSTITUTIONAL: Denies fever, chills, or sweats. CARDIOVASCULAR: Denies chest pain, palpitations, or edema. RESPIRATORY: Denies cough or dyspnea. GASTROINTESTINAL: Denies abdominal pain, nausea, vomiting, or diarrhea. GENITOURINARY: Denies dysuria or hematuria. SKIN: Denies rash or itching. MUSCULOSKELETAL: Denies back pain, joint pain, or myalgia. NEUROLOGIC: Headache, vertigo denies numbness, or weakness. PSYCHIATRIC: Denies anxiety or depression. [facility] Past Medical History Medical History Abnormal fasting glucose (09/24/22) glucose elevated at 107 on 09/24/2022. Abnormal mammogram normal mammogram on 01/15/2021 with recheck in 1 year. mammogram normal 03/19/2022 with recheck in 1 year for Abnormal serum iron level Total iron elevated at 217 with 58% saturation and ferritin normal at 32 on 11/25/2021 with hemoglobin 14.3. iron 149 with 44% saturation and ferritin 28 on 09/24/2022. Abrasion hip/leg (~08/2022) significant abrasion wound to the anterior aspect left lower leg Abscessed tooth Acute bronchitis Acute non-recurrent maxillary sinusitis Anemia Hemoglobin normal at 14.3 with vitamin B12 770 and folic acid 11.3 with iron 217 on 11/25/2021. Hemoglobin 13.3, iron 149, vitamin B12 612, folic acid 12.1 on 09/24/2022. Arthritis At low risk for fall Bilateral hand pain BMI 24.0-24.9, adult BMI 25.0-25.9,adult BMI 26.0-26.9,adult BMI 27.0-27.9,adult BMI 28.0-28.9,adult Carpal tunnel syndrome Chronic anxiety Cough COVID 01/22/22 Exposure to COVID-19 virus Hypertension Inflammatory arthritis (~2014) Insomnia Overweight (BMI 25.0-29.9) Persistent dyspnea after COVID-19 (03/24/22) with abnormal CT of the chest 02/02/2022.Repeat high-resolution CT of the chest on 04/17/2022 revealed resolution of previously described infectious changes. Normal CT with old granulomatous changes noted. Rheumatoid arthritis Seasonal allergic rhinitis Tinnitus UTI (urinary tract infection) Vitamin D insufficiency Level slightly low at 29 on 09/24/2022. (~01/2021) Surgical History Surgical History H/O: hysterectomy Family History Family History Mother Patient's mother is , Onset Age: 86 Father Family history of malignant neoplasm of brain, Onset Age: 58 Social History Social History Smoking status: Never smoker Alcohol intake: never Substance use: never Substance use type: does not use Lack of [place]
--- NOTE | 2022-10-24 12:16 | PC.NURSE ---
at 1207 made MD aware of pain medication needed for REYES and toradol not working.
[2022-10-24] MEDS: MECLIZINE HCL 25 MG TABLET PO (12:20)
[2022-10-24 12:30] VITALS: BP 149/103; PULSE 92; RESP 22; O2SAT 99
== END 2022-10-24 12:46 | disposition home or self-care (01) ==
PROVIDERS: Emergency Provider Preventive Medicine Aerospace Medicine; PCP Family Medicine
DX: G43.809 Other migraine, not intractable, without status migrainosus (principal); H81.11 Benign paroxysmal vertigo, right ear; I10 Essential (primary) hypertension
CPT/HCPCS: 36415; 71046; 80053; 83690; 84484; 85025; 85610; 85730; 93005; 96361; 96374; 96375; 99284; A9270; J1200; J1885; J2405; J7030

== ENCOUNTER → 2022-10-30 15:57 | Outpatient (CLI) | payer MEDICARE, SELFPAY ==
--- NOTE | ~2022-10-30 | XR_ITS ---
EXAM: XR foot RT min 3V DATE: 10/30/2022 16:15 HISTORY: M79.671 - Pain in right foot . COMPARISON: None available. FINDINGS: Normal mineralization. No fracture or dislocation. No lytic or blastic lesion. Mild degene rative changes at the first MTP joint and multiple midfoot joints. Minimal Achilles and plantar enthe sopathy. 2 mm linear radiopaque foreign body in the soft tissues of the ball of foot overlying the th ird digit. No erosion or periosteal change. Vascular calcifications. IMPRESSION: 2 mm radiopaque foreign body in the soft tissues of the ball of foot. Mild polyarticular osteoarthritis. Reviewed, dictated and finalized at location K.
== END ==
PROVIDERS: PCP Family Medicine; Visit Provider Family Medicine
DX: M15.9 Polyosteoarthritis, unspecified (principal); M79.671 Pain in right foot
CPT/HCPCS: 73630

== ENCOUNTER 2022-12-11 14:24 | Emergency (ER) | payer MEDICARE, SELFPAY ==
--- NOTE | ~2022-12-11 | XR_ITS ---
XR chest 2V 12/11/2022 15:18 Indication: Covid positive. Shortness of breath. Procedure: 2 view chest Comparison: 10/24/2022 Findings: Heart size normal. No focal air space disease, pulmonary edema, pleural effusion or suspect ed pneumothorax. There is calcified granuloma left upper thorax. No acute osseous abnormality. Impression: 1: No acute cardiopulmonary disease. Reviewed, dictated and finalized at location L. Impression: 1: No acute cardiopulmonary disease.
[2022-12-11 14:39] VITALS: BP 145/80; PULSE 103; RESP 16; TEMP 36.6; O2SAT 100
[2022-12-11 15:38] LABS: Basophils Percent Auto 0.4 % (0.2-1.2); Hematocrit 41.9 % (37.0-47.0); Hemoglobin 13.8 g/dL (12.0-15.0); Immature Granulocyte Absolute 0.05 K/mm3 (0.00-0.031); Immature Granulocyte Percent A 0.5 % (0-0.5); Lymphocytes Absolute Auto 1.12 K/mm3 (0.9-3.2); Lymphocytes Percent Auto 10.5 % (18.3-44.2); Mean Corpuscular HGB Conc 32.9 g/dl (32-36); Mean Corpuscular Hemoglobin 31.9 pg (26-34); Monocytes Absolute Auto 0.5 K/mm3 (0.1-0.6); Monocytes Percent Auto 4.3 % (2.6-8.5); Neutrophils Percent Auto 84.3 % (45.5-73.1); Platelet Count Result 351 k/mm3 (150-375); Red Blood Count 4.32 M/mm3 (4.2-5.4); Red Cell Distribution Width 12.9 % (11.5-14.5); White Blood Count 10.7 K/mm3 (4.5-10.0)
[2022-12-11 15:48] LABS: Alanine Aminotransferase 29 U/L (6-35); Albumin Level 4.2 g/dL (3.5-5.1); Alkaline Phosphatase 74 U/L (38-126); Anion Gap 12 mmol/L (8-16); Aspartate Amino Transferase 41 U/L (14-36); Bilirubin,Total 0.6 mg/dL (0.2-1.3); Blood Urea Nitrogen 26 mg/dL (7-17); Calcium 9.1 mg/dL (8.4-10.2); Carbon Dioxide 20 mmol/L (22-30); Chloride 106 mmol/L (98-107); Estimated CRCL calculation 46 ml/min; Estimated Glomerular Filt Rate > 60; Glucose 139 mg/dL (65-110); Sodium 138 mmol/L (137-145)
[2022-12-11 15:52] LABS: Prothrombin Time 13.4 Seconds (11.1-14.7)
[2022-12-11 15:53] LABS: Partial Thromboplastin Time 23.6 SECONDS (22.3-36.8)
[2022-12-11 17:33] VITALS: BP 179/76; PULSE 102; RESP 18; TEMP 36.8; O2SAT 100
--- NOTE | 2022-12-11 17:41 | PC.NURSE ---
EDP at bedside to assess pt.
--- NOTE | 2022-12-11 17:50 | ED.GENADULT ---
HPI - General Adult General Chief complaint: Upper Respiratory Infection Stated complaint: COVID+ 12/06 NOW SOB Time Seen by Provider: 12/11/22 17:38 History of Present Illness HPI narrative: Patient is a 67-year-old female who presents ER with shortness of breath. Patient was diagnosed with COVID-19 on 12/06/2022. Patient just left her quarantine. She woke up this morning and felt newly dyspneic. There is no change in her ability to exert herself when compared to 3 days ago. She reports her sinus congestion and sore throat and cough have improved. She has concern for PE because last time she had COVID her D-dimer was elevated and she had a CTA that showed no pulmonary emboli. She denies having anxiety. She has no pain with deep breath. No chest discomfort. No hemoptysis. She has no leg swelling or calf pain. Patient reports she broke her toe about a month ago when she dropped a tub of butter on her foot but has been doing fine otherwise. Related Data Home Medications Medication Instructions Recorded Confirmed methotrexate sodium 2.5 mg tablet 2.5 mg PO 4XW 03/12/22 12/04/22 prednisone 5 mg tablet 5 mg PO DAILY PRN arthritis 10/01/22 12/04/22 rimegepant 75 mg disintegrating 75 mg PO ONCE PRN 12/04/22 12/04/22 [facility] Allergies Allergy/AdvReac Type Severity Reaction Status Date / Time prochlorperazine Allergy Intermediate Chest Verified 12/04/22 10:35 tightness nalbuphine Allergy Unknown Rash Verified 12/04/22 10:35 promethazine Allergy Unknown Rash Verified 12/04/22 10:35 sumatriptan Allergy Unknown Rash Verified 11/20/22 12:50 metoclopramide AdvReac Mild Jittery Verified 11/20/22 12:50 Review of Systems Review of Systems: All systems reviewed & are unremarkable except as noted in HPI and below Constitutional: Constitutional: Denies chills, Reports fatigue and Denies fever(s) ENT: Denies nasal congestion and Denies sore throat Cardiovascular: Cardiovascular: Denies chest pain, Denies rapid heart rate and Denies radiating jaw, neck or arm pain Respiratory: Respiratory: Denies cough, Reports dyspnea and Denies wheezing Gastrointestinal: Gastrointestinal: Denies abdominal pain, Denies nausea and Denies vomiting [facility] Past Medical History Medical History Abnormal fasting glucose (09/24/22) glucose elevated at 107 on 09/24/2022. Abnormal mammogram normal mammogram on 01/15/2021 with recheck in 1 year. mammogram normal 03/19/2022 with recheck in 1 year for Abnormal serum iron level Total iron elevated at 217 with 58% saturation and ferritin normal at 32 on 11/25/2021 with hemoglobin 14.3. iron 149 with 44% saturation and ferritin 28 on 09/24/2022. Abrasion hip/leg (~08/2022) significant abrasion wound to the anterior aspect left lower leg Abscessed tooth Acute bronchitis Acute non-recurrent maxillary sinusitis Acute pain of right foot (10/27/22) Possible stress fracture . X-ray of the right foot on 10/30/2022 revealed mild arthritis with a 2 mm linear foreign body at the base of the 3rd toe. Anemia Hemoglobin normal at 14.3 with vitamin B12 770 and folic acid 11.3 with iron 217 on 11/25/2021. Hemoglobin 13.3, iron 149, vitamin B12 612, folic acid 12.1 on 09/24/2022. Arthritis At low risk for fall Benign paroxysmal positional vertigo due to bilateral vestibular disorder (~10/24/22) Bilateral hand pain BMI 24.0-24.9, adult BMI 25.0-25.9,adult BMI 26.0-26.9,adult BMI 27.0-27.9,adult BMI 28.0-28.9,adult Carpal tunnel syndrome Chronic anxiety Cough COVID 01/22/22 Exposure to COVID-19 virus Hypertension Inflammatory arthritis (~2014) Insomnia Overweight (BMI 25.0-29.9) Persistent dyspnea after COVID-19 (03/24/22) with abnormal CT of the chest 02/02/2022.Repeat high-resolution CT of the chest on 04/17/2022 revealed resolution of previously described infectious changes. Normal CT with old granulomatous changes noted. Rheumatoid arthritis Seasonal allergic rhinitis Skin tear of left upper
[2022-12-11 18:15] VITALS: PULSE 100; RESP 16; O2SAT 98
== END 2022-12-11 18:17 | disposition home or self-care (01) ==
LOC: ANHED 18:08
PROVIDERS: Student in an Organized Health Care Education/Training Program; Emergency Provider Emergency Medicine; PCP Family Medicine
DX: U07.1 COVID-19 (principal); I10 Essential (primary) hypertension; E55.9 Vitamin D deficiency, unspecified; M19.90 Unspecified osteoarthritis, unspecified site; M06.9 Rheumatoid arthritis, unspecified; Z86.16 Personal history of COVID-19; Z87.440 Personal history of urinary (tract) infections; Z86.2 Personal history of diseases of the blood and blood-forming organs and certain disorders involving the immune mechanism; Z90.710 Acquired absence of both cervix and uterus
CPT/HCPCS: 36415; 71046; 80053; 85025; 85610; 85730; 99284

== ENCOUNTER 2023-02-09 07:27 | Outpatient (CLI) | payer MEDICARE, SELFPAY ==
--- NOTE | 2023-02-09 07:29 | ECHO_ITS ---
Patient Info Name: Monse Boucher Age: 67 years : 1955 Gender: Female Ht: 62 in Wt: 130 lbs BSA: 1.62 m2 HR: 100 bpm BP: 151 / 86 mmHg Heart Rhythm: Sinus Rhythm Technical Quality: Fair Exam Date: 02/09/2023 7:43 AM Exam Location: Echo Lab Patient Status: Outpatient Admit Date: 02/09/2023 Staff Ordering Physician: Tee Castro MD Optics Technical Officer: Yady Rosario RDCS Attending Provider: Tee Castro MD Referring Physician: Matthew TUCKER; Exam Type: CA echo doppler color flow Study Info Indications R06.02 - Shortness of breath Complete two-dimensional, color flow and Doppler transthoracic echocardiogram is performed. Summary 1. Complete two-dimensional, color flow and Doppler transthoracic echocardiogram is performed. 2. Left ventricular chamber dimension is normal. 3. Left ventricular systolic function is normal, estimated at 65-70%. 4. The left ventricular diastolic function is grade II diastolic dysfunction. 5. E/e' 18 is elevated. 6. There is mild aortic valve sclerosis. 7. There is mild mitral valve regurgitation. 8. There is trace tricuspid valve regurgitation. 9. Mild pulmonary hypertension, estimated pulmonary arterial systolic pressure is 49 mmHg. Left Ventricle E/e' 18 is elevated. Left ventricular chamber dimension is normal. Left ventricular systolic function is normal, estimated at 65-70%. The left ventricular diastolic function is grade II diastolic dysfunction. Right Ventricle Right ventricular systolic function is normal and with normal TAPSE 1.9 cm. Right ventricular chamber dimension is normal. Left Atria Left atrial chamber dimension is normal. Right Atria Right atrial chamber dimension is normal. Aortic Valve The aortic valve is trileaflet. There is mild aortic valve sclerosis. There is no aortic valve stenosis. There is no aortic valve regurgitation. Pulmonic Valve There is no pulmonic regurgitation. Mitral Valve There is no mitral valve stenosis. There is mild mitral valve regurgitation. Tricuspid Valve There is trace tricuspid valve regurgitation. Mild pulmonary hypertension, estimated pulmonary arterial systolic pressure is 49 mmHg. Pericardium/Pleural There is no pericardial effusion. Inferior Vena Cava Normal inferior vena cava with >50% collapse upon inspiration consistent with normal right atrial pressure, 5 mmHg. Aorta The aortic root size at the sinus of Valsalva is normal. Left Ventricular Outflow Tract Name Value Normal LVOT 2D LVOT Diameter 1.9 cm LVOT Doppler LVOT Peak Gradient 4 mmHg LVOT Mean Gradient 2 mmHg LVOT VTI 20 cm LVOT VTI/AV VTI Ratio 0.6 LVOT Stroke Volume 54 ml LVOT CO 4.9 l/min LVOT CI 3.0 l/min/m2 Pulmonic Valve Name Value Normal RVOT Doppler
[2023-02-09 08:40] VITALS: PULSE 91; O2SAT 97
[2023-02-09 09:00] VITALS: PULSE 99; O2SAT 98
[2023-02-09 09:05] VITALS: PULSE 90; O2SAT 98
--- NOTE | 2023-02-09 09:07 | HOMEO2EVAL ---
Evaluation was performed at [facility] Home Oxygen Evaluation RC: Home Oxygen (O2) Evaluation Start: 02/09/23 09:05 Freq: Status: Active Protocol: RPE Activity Type Activity Date Activity User E-sign Co-sign Detail Recorded Client Recorded Date Recorded By Document 02/09/23 08:40 [facility] [id number] 02/09/23 09:06 [facility] Document 02/09/23 09:00 [facility] [id number] 02/09/23 09:06 [facility] Document 02/09/23 09:05 [facility] [id number] 02/09/23 09:06 [facility] 02/09/23 02/09/23 02/09/23 08:40 09:00 09:05 Home O2 Evaluation [Oxygen] -Test Phase Resting Exercise Resting -Oxygen Delivery Room Air Room Air Room Air [Pulse Oximetry] -Pulse Oximetry (90-100 %) 97 98 98 [Pulse Rate] -Pulse Rate (60-100 beats/min) 91 99 90 [Evaluation] -Activity Tolerance Good [Charges] -Treatment Charges O2 Evaluation - Outpatient
--- NOTE | 2023-02-09 14:11 | P.PCNPFT_ITS ---
PFT Procedure Performed PFT Procedure Performed Spirometry with Pre/Post Bronchodilator Plethysmography (Lung Vol) Flow Vol Loop PFT Interpretation This is a pulmonary function test with pre and post-bronchodilator spirometry, and plethysmography. The test was performed and results interpreted in accordance with the 2019 and 2005 ATS/ERS Task Force guidelines respectively using the Global Lung Function Initiative-2012 reference equations. Patient demonstrated good effort and cooperation. Reproducibility criteria were met. The quality of the pre bronchodilator spirometry maneuver was Grade B and post bronchodilator spirometry maneuver was Grade A. Of note the patient was unable to perform DLCO as she struggled holding her breath and exhaling longer than a couple of seconds. Findings: Spirometry: The contour the expiratory flow tracing is notched in 2 of the 3 pre bronchodilator efforts and normal in 1 pre bronchodilator effort. There is decreased maximal expiratory airflow in the two post bronchodilator tracing without any notched pattern. The contour the inspiratory flow tracing is nor mal. The pre bronchodilator FVC is 1.81 L, 67% predicted. The pre bronchodilator FEV1 is 1.27 L, 60% predicted. The pre bronchodilator FEV1: FVC ratio 70%. The post bronchodilator FVC is 1.75 L, representing a 3% decrease. The post bronchodilator FEV1 is 1.01 L, representing a 21% decrease. The post bronchodilator FEV1: FVC ratio is 58%. Plethysmography: The total lung capacity is 5.29 L, 112% predicted. The functional residual capacity is 3.74 L, 140% predicted. The residual volume is 3.48 L, 171% predicted. Impression: The contour the pre bronchodilator expiratory flow tracing demonstrates a notched pattern in 2 of 3 of the performed maneuvers and this has been described with tracheobronchomalacia. Clinical correlation is recommended. There is a moderate obstructive abnormality without significant improvement after inhaling a single dose of albuterol. The increase in residual volume is consistent with air trapping from an obstructive abnormality. Hyperinflation is present as demonstrated by the increase in functional residual capacity and is consistent with an obstructive abnormality. There are no prior studies for comparison
== END 2023-02-09 07:28 | disposition home or self-care (01) ==
LOC: ANHCARD 07:28
PROVIDERS: PCP Family Medicine; Visit Provider Internal Medicine Pulmonary Disease
DX: R06.02 Shortness of breath (principal); R06.09 Other forms of dyspnea; R94.2 Abnormal results of pulmonary function studies
CPT/HCPCS: 93306; 94060; 94618; 94726

== ENCOUNTER 2023-06-13 12:13 | Emergency (ER) | payer MEDICARE, SELFPAY ==
[2023-06-13 12:21] VITALS: BP 141/71; PULSE 118; RESP 20; TEMP 36.6; O2SAT 98
--- NOTE | 2023-06-13 12:38 | ED.URI ---
HPI - URI/Sore Throat General Chief Complaint: Upper Respiratory Infection Stated Complaint: Blood Pressure Problem/Shortness of Breath History of Present Illness HPI Narrative: pt is a 68 y/o female, PMHx of HTN and CVA, presents to with one day hx of sore throat, nasal congestion and sinus pressure without associated fevers or chills. She notes she took a dose of Mucinex this morning when she woke and then checked her BP an hour after. Her reading was elevated (she believes 120's/100). She denies new focal motor weakness but states her sister in law at her home pushed her to come for evaluation. She saw her coordinator hotels yesterday for follow up post CVA in March 2023. She is taking Metoprolol and Eliquis as prescribed and denies missed doses or recent adjustments. she has no other associated symptoms, including fevers or chills and she has no known sick contacts or strep exposures. she has not attempted any other modifying factors. Related Data Home Medications Medication Instructions Recorded Confirmed conjugated estrogens 0.625 mg 0.625 mg PO DAILY 03/24/23 06/13/23 tablet (Premarin) ondansetron 8 mg disintegrating 8 mg PO Q12H 03/24/23 06/13/23 tablet amlodipine 5 mg tablet 5 mg PO DAILY 05/04/23 06/13/23 metoprolol tartrate 50 mg tablet 50 mg PO BID 05/04/23 06/13/23 apixaban 5 mg tablet (Eliquis) 5 mg PO BID 06/04/23 06/13/23 aspirin 81 mg tablet,delayed 81 mg PO DAILY 06/04/23 06/13/23 release (Adult Aspirin Regimen) ranitidine HCl 150 mg tablet 150 mg PO BID 06/04/23 06/13/23 Allergies Allergy/AdvReac Type Severity Reaction Status Date / Time prochlorperazine Allergy Intermediate Chest Verified 06/13/23 12:27 tightness nalbuphine Allergy Unknown Rash Verified 06/13/23 12:27 promethazine Allergy Unknown Rash Verified 06/13/23 12:27 sumatriptan Allergy Unknown Rash Verified 06/13/23 12:27 metoclopramide AdvReac Mild Jittery Verified 06/13/23 12:27 Review of Systems ENT: Comments: refer to [facility] Past Medical History Medical History Abnormal fasting glucose (09/24/22) glucose elevated at 107 on 09/24/2022. fasting glucose 91 with hemoglobin A1c 5.5 on 05/19/2023. Abnormal mammogram normal mammogram on 01/15/2021 with recheck in 1 year. mammogram normal 03/19/2022 with recheck in 1 year for Abnormal serum iron level Total iron elevated at 217 with 58% saturation and ferritin normal at 32 on 11/25/2021 with hemoglobin 14.3. iron 149 with 44% saturation and ferritin 28 on 09/24/2022. Abrasion hip/leg (~08/2022) significant abrasion wound to the anterior aspect left lower leg Abscessed tooth Acute bronchitis Acute non-recurrent maxillary sinusitis Acute pain of right foot (10/27/22) Possible stress fracture . X-ray of the right foot on 10/30/2022 revealed mild arthritis with a 2 mm linear foreign body at the base of the 3rd toe. Anemia Hemoglobin normal at 14.3 with vitamin B12 770 and folic acid 11.3 with iron 217 on 11/25/2021. Hemoglobin 13.3, iron 149, vitamin B12 612, folic acid 12.1 on 09/24/2022. Hemoglobin 11.7 on 05/21/2023. hemoglobin 12.8 on 05/29/2023. Arthritis At low risk for fall Benign paroxysmal positional vertigo due to bilateral vestibular disorder (~10/24/22) Bilateral hand pain BMI 24.0-24.9, adult BMI 25.0-25.9,adult BMI 26.0-26.9,adult BMI 27.0-27.9,adult BMI 28.0-28.9,adult Carpal tunnel syndrome Chronic anxiety COPD (chronic obstructive pulmonary disease) (~2022) PFT on 02/09/2023 with moderate obstructive defect without improvement with bronchodilator. Cough COVID 01/22/22 COVID CVA (cerebral vascular accident) (05/19/23) Left-sided weakness and slurred speech with vertigo 05/19/2023. CTA of head and neck 05/19/2023 with chronic multiple small cortical infarcts right parietal and posterior frontal areas. MRI without contrast 05/20/2023 with chronic microvascular ischemic type infarcts. Diastolic dysfunction without heart failure (~02/09/23) grade 2 diasto
== END 2023-06-13 12:55 | disposition home or self-care (01) ==
PROVIDERS: Emergency Provider Nurse Practitioner Family; PCP Family Medicine
DX: J06.9 Acute upper respiratory infection, unspecified (principal); M19.90 Unspecified osteoarthritis, unspecified site; J44.9 Chronic obstructive pulmonary disease, unspecified; Z86.73 Personal history of transient ischemic attack (TIA), and cerebral infarction without residual deficits; E78.2 Mixed hyperlipidemia; I48.0 Paroxysmal atrial fibrillation; M06.9 Rheumatoid arthritis, unspecified; Z79.82 Long term (current) use of aspirin
CPT/HCPCS: 99211; G0463

== ENCOUNTER 2023-08-24 15:39 | Emergency (ER) | payer MEDICARE, SELFPAY ==
[2023-08-24 15:50] VITALS: BP 135/55; PULSE 79; RESP 20; TEMP 36.6; O2SAT 96
--- NOTE | 2023-08-24 17:01 | ED.GENADULT ---
HPI - General Adult General Chief complaint: Fall Stated complaint: Fall Injury/Left Arm/Low Back Pain Time Seen by Provider: 08/24/23 16:00 Source: patient, family, RN notes reviewed and old records reviewed Mode of arrival: ambulatory Limitations: no limitations History of Present Illness HPI narrative: 68 year old female accompanied by sister presents to express care with complaints of falling at home sometime last night when she got up to use restroom is unsure how long she was on the floor but sister reports that she found her in her bed today around 3 pm. Sister reports that she had called the house this morning and no one answered, she then went to her doctor's appointment and then tried calling again with no answer so she went over to check on her and found her in her bed with blood allover her sheet and also on towel in the floor. Sister reports that patient was in the Emergency room day before yesterday for migraine headache and dizziness and had testing and was sent home.Sister reports that patient has had 2 previous CVA's one in December and one in May of this year. Patient was able to stand with assistance to transfer to bed from wheelchair is able to move all extremities is able to answer questions as directed. Patient is on daily Eliquis, reports that she doesn't think she hit her head states pain to her left lower back hip area with bruising noted also patient has numerous small skin tears to her left forearm and large skin tear to upper left arm Sister reports that patient has been increasing weak for past 2-3 days with some confusion. MD complaint: fall, bruising and pain left lower back/hip, numerous skin tears left arm, Onset (ago): day(s) (fall occurred sometime during night) Location: back (left lower) Treatments prior to arrival: none Related Data Home Medications Medication Instructions Recorded Confirmed conjugated estrogens 0.625 mg 0.625 mg PO DAILY 03/24/23 08/24/23 tablet (Premarin) ondansetron 8 mg disintegrating 8 mg PO Q12H 03/24/23 08/24/23 tablet amlodipine 5 mg tablet 5 mg PO DAILY 05/04/23 08/24/23 metoprolol tartrate 50 mg tablet 50 mg PO BID 05/04/23 08/24/23 apixaban 5 mg tablet (Eliquis) 5 mg PO BID 06/04/23 08/24/23 aspirin 81 mg tablet,delayed 81 mg PO DAILY 06/04/23 08/24/23 release (Adult Aspirin Regimen) ranitidine HCl 150 mg tablet 150 mg PO BID 06/04/23 08/24/23 Allergies Allergy/AdvReac Type Severity Reaction Status Date / Time prochlorperazine Allergy Intermediate Chest Verified 08/24/23 16:46 tightness nalbuphine Allergy Unknown Rash Verified 08/24/23 16:46 promethazine Allergy Unknown Rash Verified 08/24/23 16:46 sumatriptan Allergy Unknown Rash Verified 08/24/23 16:46 metoclopramide AdvReac Mild Jittery Verified 08/24/23 16:46 Review of Systems Review of Systems: CONSTITUTIONAL: Denies fever, chills, or sweats. EYES: Denies visual changes, redness, or discharge. ENT: Denies rhinorrhea, congestion, sore throat, or otalgia. CARDIOVASCULAR: Denies chest pain, palpitations, or edema. RESPIRATORY: Denies cough or dyspnea. GASTROINTESTINAL: Denies abdominal pain, nausea, vomiting, or diarrhea. GENITOURINARY: Denies dysuria or hematuria. SKIN: Denies rash or itching.numerous small skin tears to lower left forearm large area of skin tear left upper arm, bruising to left elbow MUSCULOSKELETAL: Reports left lower back pain and hip pain,left elbow joint pain, or myalgia. NEUROLOGIC: Denies headache, or numbness at this time admits to feeling generalized weakness. PSYCHIATRIC: Denies anxiety or depression. All systems reviewed & are unremarkable except as noted in HPI and below PMFSH Past Medical History Medical History Abnormal fasting glucose (09/24/22) glucose elevated at 107 on 09/24/2022. fasting glucose 91 with hemoglobin A1c 5.5 on 05/19/2023. Abnormal mammogram normal mammogram on 01/15/2021 with recheck in 1 year. mammogram normal 03/19/2022 with recheck in 1 year
== END 2023-08-24 16:50 | disposition short-term general hospital (02) ==
PROVIDERS: Emergency Provider Registered Nurse; PCP Family Medicine
DX: S41.112A Laceration without foreign body of left upper arm, initial encounter (principal); S51.812A Laceration without foreign body of left forearm, initial encounter; W19.XXXA Unspecified fall, initial encounter; M25.552 Pain in left hip; M54.50 Low back pain, unspecified; Z79.01 Long term (current) use of anticoagulants; J44.9 Chronic obstructive pulmonary disease, unspecified; K21.9 Gastro-esophageal reflux disease without esophagitis; I10 Essential (primary) hypertension; E78.2 Mixed hyperlipidemia; I48.0 Paroxysmal atrial fibrillation; M06.9 Rheumatoid arthritis, unspecified; Z79.82 Long term (current) use of aspirin
CPT/HCPCS: 99215; G0463

== ENCOUNTER 2023-08-27 14:27 | Emergency (ER) | payer MEDICARE, SELFPAY ==
[2023-08-27 14:34] VITALS: BP 102/49; PULSE 88; RESP 22; TEMP 36.4; O2SAT 100
--- NOTE | 2023-08-27 14:56 | ED.WOUNDLAC ---
HPI - Wound/Laceration General Chief Complaint: Wound/Laceration Stated Complaint: Fall Injury/Wound Check/Dizziness Time Seen by Provider: 08/27/23 14:34 Source: patient, RN notes reviewed and old records reviewed Mode of arrival: ambulatory Limitations: no limitations History of Present Illness HPI narrative: 68 year old female presents to express care stating she is here for wound dressing change that she is having oozing thru her dressing.Patient was placed in Wheelchair from car by accompanying neighbor who brings her here today for wound care. Once patient has been through triage and blood pressure noted to be 102/49 patient states that she has been dizzy since Thursday and states that she called her doctors office today and was told to come to urgent care. Neighbor states that patient seems a little confused today appears is alert and able to answer questions as asked but then she states that she remembers being in the ER on Thursday but does not remember being in ED 2 days before that with migraine. Called PMD office and questioned if patient had called their office today and was told she hadn't, that she had called yesterday and asked to have her daughter taken off her contact list but office states they just left it as a contact number.. Called and talked with her PMD Dr Rucker and discussed patient being in clinic on Thursday with fall and wounds, VS reviewed with doctor and patient;s continued complaints of dizziness and he instructed that patient should be sent to ED. Patient wants to go to [facility] Onset (ago): day(s) (5 days reported dizziness, 4 days of wounds related to fall) Treatments prior to arrival: bandage (applied in ED Thursday) Related Data Home Medications Medication Instructions Recorded Confirmed conjugated estrogens 0.625 mg 0.625 mg PO DAILY 03/24/23 08/24/23 tablet (Premarin) ondansetron 8 mg disintegrating 8 mg PO Q12H 03/24/23 08/24/23 tablet amlodipine 5 mg tablet 5 mg PO DAILY 05/04/23 08/24/23 metoprolol tartrate 50 mg tablet 50 mg PO BID 05/04/23 08/24/23 apixaban 5 mg tablet (Eliquis) 5 mg PO BID 06/04/23 08/24/23 aspirin 81 mg tablet,delayed 81 mg PO DAILY 06/04/23 08/24/23 release (Adult Aspirin Regimen) ranitidine HCl 150 mg tablet 150 mg PO BID 06/04/23 08/24/23 atorvastatin 10 mg tablet mg 08/27/23 glycopyrrolate 9 mcg-formoterol inhalation 08/27/23 4.8 mcg HFA aerosol inhaler (Bevespi Aerosphere) lorazepam 0.5 mg tablet mg 08/27/23 prednisone 5 mg tablet mg 08/27/23 Allergies Allergy/AdvReac Type Severity Reaction Status Date / Time prochlorperazine Allergy Intermediate Chest Verified 08/27/23 14:29 tightness nalbuphine Allergy Unknown Rash Verified 08/27/23 14:29 promethazine Allergy Unknown Rash Verified 08/27/23 14:29 sumatriptan Allergy Unknown Rash Verified 08/27/23 14:29 metoclopramide AdvReac Mild Jittery Verified 08/27/23 14:29 Review of Systems Review of Systems: CONSTITUTIONAL: Denies fever, chills, or sweats. EYES: Denies visual changes, redness, or discharge. ENT: Denies rhinorrhea, congestion, sore throat, or otalgia. CARDIOVASCULAR: Denies chest pain, palpitations, or edema. RESPIRATORY: Denies cough or dyspnea. GASTROINTESTINAL: Denies abdominal pain, nausea, vomiting, or diarrhea. GENITOURINARY: Denies dysuria or hematuria SKIN: Denies rash or itching. Has dressings from wrist to upper left arm from wound that occurred from previous fall either Thursday night or Thursday when she fell at home MUSCULOSKELETAL: Denies back pain, joint pain, or myalgia. NEUROLOGIC: Denies headache, numbness, states she feels weak, is able to move all extrmities on own power. PSYCHIATRIC: Positive for anxiety or depression. reports feelings of dizziness and also confusion All systems reviewed & are unremarkable except as noted in HPI and below PMFSH Past Medical History Medical History Abnormal fasting glucose (09/24/22) glucose elevated at 107 on 09/24/2022. fas
--- NOTE | 2023-08-27 15:02 | PC.NURSE ---
1456 paperboard boxes estimator called and consulted pmd.
== END 2023-08-27 15:17 | disposition home or self-care (01) ==
PROVIDERS: Emergency Provider Registered Nurse; PCP Family Medicine
DX: R42 Dizziness and giddiness (principal); R41.0 Disorientation, unspecified; S51.802D Unspecified open wound of left forearm, subsequent encounter; W19.XXXD Unspecified fall, subsequent encounter; J44.9 Chronic obstructive pulmonary disease, unspecified; K21.9 Gastro-esophageal reflux disease without esophagitis; I48.0 Paroxysmal atrial fibrillation; M06.9 Rheumatoid arthritis, unspecified; I10 Essential (primary) hypertension; I69.354 Hemiplegia and hemiparesis following cerebral infarction affecting left non-dominant side; I69.328 Other speech and language deficits following cerebral infarction; Z79.82 Long term (current) use of aspirin
CPT/HCPCS: 99212; G0463

== ENCOUNTER 2023-10-06 01:56 | Day surgery (SDC) | payer MEDICARE, SELFPAY ==
--- NOTE | 2023-09-30 14:48 | PC.NURSE ---
Addendum entered by Cecile Kessler RN 09/30/23 14:52: Spoke with Dr. Rucker office regarding this patient and her wanting to cancel at this time. Off. to speak with Dr. Rucker and see what he wants to do with patient prior to me canceling the procedure. Original Note: Spoke with patients daughter Flaca and pt is wanting to postpone these procedures until she is stronger and able to get around better. She is awaiting orders from Dr. Rucker office for going to a rehab. facility. Pt does not think at this time she would be able to do prep and be able to get back and forth to the bathroom. They will call Dr. Medina's office when she is ready to do procedures.
[2023-10-02 10:31] VITALS: BMI 23.3
--- NOTE | 2023-10-02 11:21 | PC.NURSE ---
Spoke with patient regarding medication Pt. SHAVONNE verbalizes understanding that the last dose is to be taken on 10/03/2023 and the Endoscopist will instruct them when to restart after the procedure.
[2023-10-06 14:30] VITALS: BP 112/56; PULSE 114; RESP 20; O2SAT 98
--- NOTE | 2023-10-06 14:43 | WPDANESEPPF ---
Anes - Initial Pre Proc Eval Procedure: Operation Date: 10/06/23 15:30 Proposed Procedures p Esophagogastroduodenoscopy & Colonoscopy - Candido Saenz MD Date/Time: 10/06/23 14:43 Surgeon: Candido Saenz MD Pre Op Diagnosis: Anemia Patient Data Age: 68 Gender: F Height: 1.57 m Weight: 64.8 kg Last Vital Signs Pulse 114 H 10/06/23 14:30 Resp 98 H 10/06/23 14:30 BP 112/56 L 10/06/23 14:30 Pulse Ox 98 10/06/23 14:30 O2 Del Method Room Air 10/06/23 14:30 Allergies Allergy/AdvReac Type Severity Reaction Status Date / Time metoclopramide Allergy Intermediate Shakiness Verified 10/06/23 14:25 nalbuphine Allergy Intermediate Rash Verified 10/06/23 14:25 prochlorperazine Allergy Intermediate Chest Verified 10/06/23 14:25 tightness promethazine Allergy Intermediate Rash Verified 10/06/23 14:25 sumatriptan Allergy Intermediate chest Verified 10/06/23 14:25 tightness meclizine AdvReac Intermediate lethargic Verified 10/06/23 14:25 Home Medications Medication Instructions Recorded Confirmed Type cholecalciferol (vitamin D3) 1,250 50,000 unit PO WEEKLY #14 tabs 08/18/22 10/02/23 Rx mcg (50,000 unit) tablet cyanocobalamin (vitamin B-12) 1,000 mcg subcut MONTHLY #3 mL 12/01/22 10/02/23 Rx 1,000 mcg/mL injection solution BD Integra Syringe 3 mL 25 gauge x #12 ea 01/28/23 09/03/23 Rx 1 (syringe with needle, safety) ondansetron 8 mg disintegrating 8 mg PO Q12H PRN Nausea And 03/24/23 10/02/23 History tablet Vomiting buspirone 10 mg tablet 10 mg PO BID #60 tabs 05/04/23 10/02/23 Rx albuterol sulfate 90 mcg/actuation 2 puff inhalation Q4H PRN 05/12/23 10/02/23 Rx aerosol inhaler (ProAir HFA) shortness of breath or wheezing #18 grams lisinopril 30 mg tablet 30 mg PO DAILY #90 tabs 05/21/23 10/02/23 Rx albuterol sulfate 2.5 mg/3 mL 2.5 mg (3 mL) inhalation Q4-6H PRN 05/26/23 10/02/23 Rx (0.083 %) solution for nebulization shortness of breath or wheezing #180 mL apixaban 5 mg tablet (Eliquis) 5 mg PO BID 06/04/23 10/02/23 History amitriptyline 10 mg tablet 20 mg PO . q.h.s. #60 tabs 07/22/23 10/02/23 Rx pantoprazole 40 mg tablet,delayed 40 mg PO QAM #30 tabs 09/03/23 10/02/23 Rx release prednisone 5 mg tablet 5 mg PO DAILY 09/03/23 10/02/23 History ferrous sulfate 325 mg (65 mg 325 mg PO DAILY #30 tabs 09/07/23 10/02/23 Rx iron) tablet,delayed release glycopyrrolate 9 mcg-formoterol See Rx Instructions .Route 09/07/23 10/02/23 Rx 4.8 mcg HFA aerosol inhaler .COMPLEX #11 grams (Bevespi Aerosphere) atorvastatin 10 mg tablet 10 mg PO QHS 09/09/23 10/02/23 History hydrochlorothiazide 25 mg tablet 25 mg PO QAM 09/09/23 10/02/23 History metoprolol succinate 50 mg 50 mg PO DAILY 09/09/23 10/02/23 History tablet,extended release 24 hr hydrocodone 7.5 mg-acetaminophen 1 tablet PO Q6H PRN Pain 10/02/23 10/02/23 History 325 mg tablet ranitidine HCl 75 mg tablet 75 mg PO DAILY 10/02/23 10/02/23 History vitamins-lipotropics tablet 2 tablet PO DAILY PRN ringing ears 10/02/23 10/02/23 History Patient hx anesthesia problems: none Family hx anesthesia problems: none Results Review: All pre-operative results and documents have been reviewed as part of the pre-operative evaluation. [facility] Past Medical History Medical History Abnormal fasting glucose (09/24/22) glucose elevated at 107 on 09/24/2022. fasting glucose 91 with hemoglobin A1c 5.5 on 05/19/2023. Abnormal mammogram normal mammogram on 01/15/2021 with recheck in 1 year. mammogram normal 03/19/2022 with recheck in 1 year for Abnormal serum iron level Total iron elevated at 217 with 58% saturation and ferritin normal at 32 on 11/25/2021 with hemoglobin 14.3. iron 149 with 44% saturation and ferritin 28 on 09/24/2022. Abrasion hip/leg (~08/2022) significant abrasion wound to the anterior aspect left lower leg Abscessed tooth Acute bronchitis Acute non-recurrent maxillary sinusitis
[2023-10-06] MEDS: LACTATED RINGERS 1,000 ML 150 ML IV CONT (15:03)
--- NOTE | 2023-10-06 15:12 | PM.HPGS ---
History of Present Illness History of Present Illness Consent: Risks, benefits, and alternatives have been discussed and questions answered. Patient agrees to proceed with procedure. Chief complaint: Anemia Narrative: Monse Boucher is a 68 year old female with anemia, using eliquis, last colonoscopy 10 years ago, denies overt gib Review of Systems Review of Systems: All systems reviewed & are unremarkable except as noted in HPI and below PMFSH Past Medical History Medical History Abnormal fasting glucose (09/24/22) glucose elevated at 107 on 09/24/2022. fasting glucose 91 with hemoglobin A1c 5.5 on 05/19/2023. Abnormal mammogram normal mammogram on 01/15/2021 with recheck in 1 year. mammogram normal 03/19/2022 with recheck in 1 year for Abnormal serum iron level Total iron elevated at 217 with 58% saturation and ferritin normal at 32 on 11/25/2021 with hemoglobin 14.3. iron 149 with 44% saturation and ferritin 28 on 09/24/2022. Abrasion hip/leg (~08/2022) significant abrasion wound to the anterior aspect left lower leg Abscessed tooth Acute bronchitis Acute non-recurrent maxillary sinusitis Acute pain of right foot (10/27/22) Possible stress fracture . X-ray of the right foot on 10/30/2022 revealed mild arthritis with a 2 mm linear foreign body at the base of the 3rd toe. Alteration in speech Anemia Hemoglobin normal at 14.3 with vitamin B12 770 and folic acid 11.3 with iron 217 on 11/25/2021. Hemoglobin 13.3, iron 149, vitamin B12 612, folic acid 12.1 on 09/24/2022. Hemoglobin 11.7 on 05/21/2023. hemoglobin 12.8 on 05/29/2023. hemoglobin 10.6 on 07/06/2023. hemoglobin 8.4 on 08/29/2023. Arthritis At high risk for falls At low risk for fall Benign paroxysmal positional vertigo due to bilateral vestibular disorder (~10/24/22) Bilateral hand pain BMI 24.0-24.9, adult BMI 25.0-25.9,adult BMI 26.0-26.9,adult BMI 27.0-27.9,adult BMI 28.0-28.9,adult Carpal tunnel syndrome Chronic anxiety COPD (chronic obstructive pulmonary disease) (~2023) PFT on 02/09/2023 with moderate obstructive defect without improvement with bronchodilator. Cough COVID COVID-19 (01/22/22) CVA (cerebral vascular accident) (05/19/23) Left-sided weakness and slurred speech with vertigo 05/19/2023. CTA of head and neck 05/19/2023 with chronic multiple small cortical infarcts right parietal and posterior frontal areas. MRI without contrast 05/20/2023 with chronic microvascular ischemic type infarcts. Diastolic dysfunction without heart failure (~02/09/23) grade 2 diastolic dysfunction with ejection fraction 65-70%, mild pulmonary hypertension, mild mitral valve regurgitation, trace tricuspid valve regurgitation on echo on 02/09/2023. Exposure to COVID-19 virus Frequent falls GERD (gastroesophageal reflux disease) Hypertension Inflammatory arthritis (~2014) Insomnia Iron deficiency anemia, unspecified hemoglobin 8.4 on 08/29/2023. Hemoglobin 8.7 with iron 23 with 7% saturation and ferritin 25 with vitamin B12 greater than 2000 and folic acid 8.6 on 09/03/2023. Hemoglobin 10.6 on 09/18/2023. Mixed hyperlipidemia total cholesterol 160, triglycerides 76, HDL 58, LDL 87 with ratio 2.8 on 05/20/2023. Numbness in both hands Numbness in feet Overweight (BMI 25.0-29.9) Paroxysmal atrial fibrillation (~05/2023) Persistent dyspnea after COVID-19 (03/24/22) with abnormal CT of the chest 02/02/2022.Repeat high-resolution CT of the chest on 04/17/2022 revealed resolution of previously described infectious changes. Normal CT with old granulomatous changes noted. Renal insufficiency (09/18/23) BUN 43, creatinine 1.97, GFR 27 In the ER on 09/18/2023. possible dehydration. Renal stone (~05/2023) 2 mm stone mid left kidney on CT on 05/29/2023. Rheumatoid arthritis Seasonal allergic rhinitis Skin tear of left upper extremity Tinnitus Tremor (~2022) left upper extremity UTI (urinary tract infection) Vertigo Vitamin D insufficiency Level slightly low at 29 on
--- NOTE | 2023-10-06 15:37 | SUR.OPER ---
EGD START 1519, END 1522 COLONOSCOPY START 1527, END 1537
[2023-10-06 15:43] VITALS: BP 84/53; PULSE 103; RESP 17; O2SAT 98
[2023-10-06 15:53] VITALS: BP 97/57; PULSE 108; RESP 19; O2SAT 98
[2023-10-06 16:03] VITALS: BP 119/64; PULSE 109; RESP 20; O2SAT 98
== END 2023-10-06 16:16 | disposition home or self-care (01) ==
PROVIDERS: PCP Family Medicine; Referring Provider Family Medicine; Visit Provider Internal Medicine Gastroenterology
PROC: 0DJ08ZZ Inspection of Upper Intestinal Tract, Via Natural or Artificial Opening Endoscopic (ICD-10-PCS; CPT 43235; principal; 2023-10-06 15:30)
DX: D50.9 Iron deficiency anemia, unspecified (principal); K44.9 Diaphragmatic hernia without obstruction or gangrene; K29.70 Gastritis, unspecified, without bleeding; J44.9 Chronic obstructive pulmonary disease, unspecified; I11.9 Hypertensive heart disease without heart failure; K21.9 Gastro-esophageal reflux disease without esophagitis; E78.2 Mixed hyperlipidemia; I48.0 Paroxysmal atrial fibrillation; M06.9 Rheumatoid arthritis, unspecified; E55.9 Vitamin D deficiency, unspecified; Z79.01 Long term (current) use of anticoagulants; Z79.51 Long term (current) use of inhaled steroids; Z86.73 Personal history of transient ischemic attack (TIA), and cerebral infarction without residual deficits
CPT/HCPCS: 45378; 43239; 88305; J2704; J7120

== ENCOUNTER 2024-01-12 12:10 | Emergency (ER) | payer MEDICARE, SELFPAY ==
--- NOTE | ~2024-01-12 | XR_ITS ---
EXAMINATION: XR chest 2V DATE: 01/12/2024 13:10 INDICATION: Cough and congestion. TECHNIQUE: Frontal and lateral views of the chest were obtained. COMPARISON: Chest 2 views 12/11/2022, chest CT 04/17/2022 FINDINGS: A calcified left lung nodule is consistent with old granulomatous disease. There is mild sc arring in right upper lobe. No pleural effusion or pneumothorax. The heart size is normal. IMPRESSION: 1. Stable mild scarring in right upper lobe. Reviewed, dictated and finalized at location B.
[2024-01-12 12:22] VITALS: BP 134/56; PULSE 76; RESP 20; TEMP 36.2; O2SAT 100
--- NOTE | 2024-01-12 13:20 | ED_ITS ---
HPI - URI/Sore Throat General Chief Complaint: Upper Respiratory Infection Stated Complaint: Flu symptoms Time Seen by Provider: 01/12/24 13:01 Source: patient, RN notes reviewed and old records reviewed Mode of arrival: ambulatory Limitations: no limitations History of Present Illness HPI Narrative: 68-year-old female to [facility] with complaint of lower body aches, difficulty taking deep breaths for 1 week. Patient took a negative COVID test at home yesterday. Patient reports history of RA, COPD, AFib, stroke. Patient reports low hemoglobin 2 weeks ago that is being followed by her primary care provider. Patient resting in exam in no acute distress. Respirations shallow, regular, nonlabored. Related Data Home Medications Medication Instructions Recorded Confirmed prednisone 5 mg tablet 5 mg PO DAILY 09/03/23 01/12/24 metoprolol succinate 50 mg 50 mg PO DAILY 09/09/23 01/12/24 tablet,extended release 24 hr hydrocodone 7.5 mg-acetaminophen 1 tablet PO Q6H PRN Pain 10/02/23 01/12/24 325 mg tablet albuterol sulfate 90 mcg/actuation 2 puff inhalation Q4H PRN 01/12/24 01/12/24 aerosol inhaler Shortness Of Breath Or Wheezing apixaban 5 mg tablet (Eliquis) 5 mg PO BID 01/12/24 01/12/24 folic acid 1 mg tablet 1 mg PO DAILY 01/12/24 01/12/24 glycopyrrolate 9 mcg-formoterol 2 puff inhalation BID 01/12/24 01/12/24 4.8 mcg HFA aerosol inhaler (Bevespi Aerosphere) lisinopril 30 mg tablet 30 mg PO DAILY 01/12/24 01/12/24 Allergies Allergy/AdvReac Type Severity Reaction Status Date / Time metoclopramide Allergy Intermediate Shakiness Verified 01/12/24 12:59 nalbuphine Allergy Intermediate Rash Verified 01/12/24 12:59 prochlorperazine Allergy Intermediate Chest Verified 01/12/24 12:59 tightness promethazine Allergy Intermediate Rash Verified 01/12/24 12:59 sumatriptan Allergy Intermediate chest Verified 01/12/24 12:59 tightness meclizine AdvReac Intermediate lethargic Verified 01/12/24 12:59 Review of Systems Review of Systems: All systems reviewed & are unremarkable except as noted in HPI and below Constitutional: Constitutional: Reports as per HPI and Reports body ache(s) Eyes: Eyes: Reports no additional eye complaints ENT: Reports system reviewed and no additional complaints, except as documented Cardiovascular: Cardiovascular: Reports no additional cardiovascular complaints, Denies chest pain and Denies dyspnea Respiratory: Respiratory: Reports as per HPI, Denies cough, Denies dyspnea and Reports other ( Difficulty taking deep breath) Musculoskeletal: Musculoskeletal: Reports no additional musculoskeletal complaints Neurologic: Reports system reviewed and no additional complaints, except as documented Psychiatric: Psychiatric: Reports no additional psychiatric complaints [facility] Past Medical History Medical History Abnormal fasting glucose (09/24/22) glucose elevated at 107 on 09/24/2022. fasting glucose 91 with hemoglobin A1c 5.5 on 05/19/2023. Glucose 82, hemoglobin A1c 6.2, microalbumin ratio of 2 with GFR over 60 on 11/13/2023. Abnormal mammogram normal mammogram on 01/15/2021 with recheck in 1 year. mammogram normal 03/19/2022 with recheck in 1 year for Abnormal serum iron level Total iron elevated at 217 with 58% saturation and ferritin normal at 32 on 11/25/2021 with hemoglobin 14.3. iron 149 with 44% saturation and ferritin 28 on 09/24/2022. Abrasion hip/leg (~08/2022) significant abrasion wound to the anterior aspect left lower leg Abscessed tooth Acute bronchitis Acute non-recurrent maxillary sinusitis Acute pain of right foot (10/27/22) Possible stress fracture . X-ray of the right foot on 10/30/2022 revealed mild arthritis with a 2 mm linear foreign body at the base of the 3rd toe. Alteration in speech Anemia Hemoglobin normal at 14.3 with vitamin B12 770 and folic acid 11.3 with iron 217 on 11/25/2021. Hemoglobin 13.3, iron 149, vitamin B12 612, folic acid 12.1 on 09/24/2022. Hemoglobin 11.7 on 05/21/2023. hemoglobin 12.8 on 05/29/2023. hemoglobin 10.6 on 07/06/2023. hemoglobin 8.4 on 08/29/2023. Hemoglobin 10.1 on 11/13/2023. Arthritis At high risk for falls At low risk for fall Benign paroxysmal positional vertigo due to bilateral vestibular disorder (~10/24/22) Bilateral hand pain BMI 24.0-24.9, adult BMI 25.0-25.9,adult BMI 26.0-26.9,adult BMI 27.0-27.9,adult BMI 28.0-28.9,adult Carpal tunnel syndrome Chronic anxiety Colon cancer screening normal colonoscopy 10/06/2023 with recheck in 10 years. COPD (chronic obstructive pulmonary disease) (~2022) PFT on 02/09/2023 with moderate obstructive defect without improvement with bronchodilator. Cough COVID COVID-19 (01/22/22) CVA (cerebral vascular accident) (05/19/23) Left-sided weakness and slurred speech with vertigo 05/19/2023. CTA of head and neck 05/19/2023 with chronic multiple small cortical infarcts right parietal and posterior frontal areas. MRI without contrast 05/20/2023 with chronic microvascular ischemic type infarcts. Depression Diastolic dysfunction without heart failure (~02/09/23) grade 2 diastolic dysfunction with ejection fraction 65-70%, mild pulmonary hypertension, mild mitral valve regurgitation, trace tricuspid valve regurgi tation on echo on 02/09/2023. Exposure to COVID-19 virus Frequent falls GERD (gastroesophageal reflux disease) EGD 10/06/2023 with normal esophagus, mild gastritis. Hypertension Inflammatory arthritis (~2014) Insomnia Iron deficiency anemia, unspecified hemoglobin 8.4 on 08/29/2023. Hemoglobin 8.7 with iron 23 with 7% saturation and ferritin 25 with vitamin B12 greater than 2000 and folic acid 8.6 on 09/03/2023. Hemoglobin 10.6 on 09/18/2023. Iron 71, 19% saturation, ferritin 12, hemoglobin 10.1 on 11/13/2023. Mixed hyperlipidemia total cholesterol 160, triglycerides 76, HDL 58, LDL 87 with ratio 2.8 on 05/20/2023. Cholesterol 153, HDL 82, triglycerides 101, LDL 53 with ratio 1.9 on 11/13/2023. Nausea and vomiting Numbness in both hands Numbness in feet Overweight (BMI 25.0-29.9) Paroxysmal atrial fibrillation (~05/2023) Persistent dyspnea after COVID-19 (03/24/22) with abnormal CT of the chest 02/02/2022.Repeat high-resolution CT of the chest on 04/17/2022 revealed resolution of previously described infectious changes. Normal CT with old granulomatous changes noted. Renal insufficiency (09/18/23) BUN 43, creatinine 1.97, GFR 27 In the ER on 09/18/2023. possible dehydr ation. BUN 31, creatinine 0.92, GFR greater than 60 on 11/13/2023. Renal stone (~05/2023) 2 mm stone mid left kidney on CT on 05/29/2023. Rheumatoid arthritis Seasonal allergic rhinitis Skin tear of left upper extremity Tinnitus Tremor (~2022) left upper extremity UTI (urinary tract infection) Vertigo Vitamin D insufficiency Level slightly low at 29 on 09/24/2022. (~01/2021) Surgical History Surgical History H/O: hysterectomy Family History Family History Mother Patient's mother is , Onset Age: 86 Father Family history of malignant neoplasm of brain, Onset Age: 58 Social History Social History Smoking packs per day: 0 Smoking cigarettes per day: 0.0 Years smoked: 0 Smoking pack-years: 0.00 Smoking status: Never smoker Second hand tobacco smoke exposure: No Alcohol intake: never Substance use: never Substance use type: does not use Do You Feel Safe in your Home?: Yes Lack of Transportation: No Lack of Food: Never True Current Housing: I Have Housing Concerned About Future Housing: No Difficulty Paying Gas/Electric Bills: No Difficulty Paying for Meds: No Currently Unemployed: No Education: High School Diploma/GED Difficulty w/ Childcare or Family Care: No Living arrangements: with family Spiritual care concerns: No Comments At the time of my signature, I reviewed and agree with the nursing past medical, surgical, social, and family history. There is no relevant family history pertinent to the patient complaint. Exam Const: General: cooperative, no acute distress, alert, anxious and well nourished Nutritional Appearance: well nourished Orientation/consciousness: patient oriented x3 Limitations: no limitations HENMT: Head: normal to inspection Ears: external ears normal Face/Nose/Sinus: Normal external nose present, Normal nares present, normal facial exam, No erythema and No edema Face and sinus: normal facial exam, no erythema and no edema Mouth: Yes Normal oral and palatal mucosa present Eyes: General: appearance normal, both eyes and all related structures Neck: Neck: normal visual inspection, full ROM and no meningeal signs Lymphatic: no lymphadenopathy noted and no lymphedema noted Chest: Chest palpation & inspection: normal inspection of the chest Resp: Effort & Inspection: normal respiratory effort and able to speak in complete sentences Auscultation: diminished lung sounds Cardio: Jugular venous distension: no JVD Rate: regular rate Rhythm: regular rhythm Back/Spine/Pelvis: Cervical Spine: cervical ROM normal Skin: General skin exam: normal color, no rashes or lesions noted and turgor normal Neuro: General: patient oriented x3, gait normal, moves all extremities and no meningeal signs Speech: normal speech Gait exam (Neuro): Normal gait present Extrem: General: normal to inspection, full ROM and capillary refill normal Psych: Appearance: grossly normal and well kempt Course Course Emergency Course: Some parts of this dictation were generated by voice recognition software and may contain typographical and/or grammatical inaccuracies. Level of Care: Express Care Visit Vital Signs Vital signs: Vital Signs Temperature 36.2 C L 01/12/24 12:22 Pulse Rate 76 01/12/24 12:22 Respiratory Rate 20 01/12/24 12:22 Blood Pressure 134/56 L 01/12/24 12:22 Pulse Oximetry 100 01/12/24 12:22 Oxygen Delivery Room Air 01/12/24 12:22 Temperature 36.2 C L 01/12/24 12:22 Pulse Rate 76 01/12/24 12:22 Respiratory Rate 20 01/12/24 12:22 Blood Pressure 134/56 L 01/12/24 12:22 Pulse Oximetry 100 01/12/24 12:22 Oxygen Delivery Room Air 01/12/24 12:22 reviewed MDM - URI/Sore Throat MDM Narrative Medical decision making narrative: 68-year-old female to [facility] with complaint of lower body aches, difficulty taking deep breaths for 1 week. Patient took a negative COVID test at home yesterday. Patient reports history of RA, COPD, AFib, stroke. Patient reports low hemoglobin 2 weeks ago that is being followed by her primary care provider. Patient resting in exam in no acute distress. Respirations shallow, regular, nonlabored. on exam, diminished lung sounds throughout on auscultation. Stable mild scarring in right upper lobe. Patient is sitting comfortably in exam room nontoxic in appearance. Patient appropriate for outpatient treatment and follow-up. Discharge instructions reviewed with patient, as well as provided in writing per nursing staff. The instructions also include specific and strict return/GO TO THE ER as well as f/u information. All questions have been answered, and the patient deny any further questions with discharge and discharge plan. Some parts of this dictation were generated by voice recognition software and may contain typographical and/or grammatical inaccuracies. Differential Diagnosis Differential diagnosis: Likely upper respiratory infection, croup, otitis media, sinusitis, viral infection, bronchitis, influenza and pharyngitis Imaging Data Radiologist's impression: cc: Linda Boucher APRN; Fernando Rucker MD~ EXAMINATION: XR chest 2V DATE: 01/12/2024 13:10 INDICATION: Cough and congestion. TECHNIQUE: Frontal and lateral views of the chest were obtained. COMPARISON: Chest 2 views 12/11/2022, chest CT 04/17/2022 FINDINGS: A calcified left lung nodule is consistent with old granulomatous disease. There is mild scarring in right upper lobe. No pleural effusion or pneumothorax. The heart size is normal. IMPRESSION: 1. Stable mild scarring in right upper lobe. Discharge Plan Discharge Clinical Impression: Chronically unwell, COPD (chronic obstructive pulmonary disease) Patient Disposition: Home, Self-Care Condition: Stable Instructions: COPD (Chronic Obstructive Pulmonary Disease) (ED) Additional Instructions: please review attached instructions regarding COPD please finish entire course of antibiotic treatment for new or worsening symptoms please go directly to the emergency department Prescriptions: New azithromycin 250 mg tablet 250 mg PO DAILY Qty: 6 0RF Rx Instructions: 250 mg orally. Take TWO tablets today, then one tablet daily for 4 days. No Action albuterol sulfate 90 mcg/actuation HFA aerosol inhaler 2 puff INHALATION Q4H PRN (Reason: Shortness Of Breath Or Wheezing) lisinopril 30 mg tablet 30 mg PO DAILY Eliquis 5 mg tablet 5 mg PO BID folic acid 1 mg tablet 1 mg PO DAILY Bevespi Aerosphere 9-4.8 mcg HFA aerosol inhaler 2 puff INHALATION BID buspirone 10 mg tablet 10 mg PO BID Qty: 60 11RF pantoprazole 40 mg tablet,delayed release (DR/EC) 40 mg PO QAM Qty: 30 11RF prednisone 5 mg tablet 5 mg PO DAILY Patient Comments: prescribed by Rheumatology hydrocodone-acetaminophen 7.5-325 mg tablet 1 tablet PO Q6H PRN (Reason: Pain) cholecalciferol (vitamin D3) 1,250 mcg (50,000 unit) tablet 50,000 unit PO WEEKLY Qty: 14 3RF cyanocobalamin (vitamin B-12) 1,000 mcg/mL solution 1,000 mcg SUB-Q MONTHLY Qty: 3 4RF (DME) BD Integra Syringe 3 mL 25 gauge x 1 syringe See Rx Instructions .Route Qty: 12 0RF Rx Instructions: use to inject B12 once monthly albuterol sulfate 2.5 mg /3 mL (0.083 %) solution for nebulization 2.5 mg inhalation Q4-6H PRN (Reason: shortness of breath or wheezing) Qty: 180 6RF amitriptyline 10 mg tablet 20 mg PO . q.h.s. Qty: 60 11RF metoprolol succinate 50 mg tablet extended release 24 hr 50 mg PO DAILY Follow-up/Referrals: Fernando Rucker MD [Primary Care Provider] -
[2024-01-12 13:40] LABS: EDCOVIDSCREEN Negative (Negative); EDINFLUASCREEN Negative (Negative); EDINFLUBSCREEN Negative (Negative)
== END 2024-01-12 13:35 | disposition home or self-care (01) ==
PROVIDERS: Emergency Provider Nurse Practitioner Family; PCP Family Medicine
DX: J44.9 Chronic obstructive pulmonary disease, unspecified (principal); Z20.822 Contact with and (suspected) exposure to COVID-19; M19.90 Unspecified osteoarthritis, unspecified site; K21.9 Gastro-esophageal reflux disease without esophagitis; I10 Essential (primary) hypertension; D50.9 Iron deficiency anemia, unspecified; M06.9 Rheumatoid arthritis, unspecified; E78.2 Mixed hyperlipidemia; I48.91 Unspecified atrial fibrillation; I69.354 Hemiplegia and hemiparesis following cerebral infarction affecting left non-dominant side; I69.328 Other speech and language deficits following cerebral infarction; Z79.01 Long term (current) use of anticoagulants
CPT/HCPCS: 71046; 87426; 87804; 99213; G0463

== ENCOUNTER 2024-04-16 11:57 | Emergency (ER) | payer MEDICARE, SELFPAY ==
--- OUTSIDE RECORDS SUMMARY | 2024-04-16 12:01 | XMS_ITS | Encounter Summary ---
Author Organization [facility] Address [address] [place] [address] Phone Care Team Providers Care Transportation Project Manager Name Role Phone Fernando Rucker MD Primary Care Provider Sylvester Graves MD Unavailable [phone] Encounter Details Date Type Department Care Team (Late Contact Info) Description 03/07/2020 [facility] [address] [place] [id number] Wendy Porras, TEACHER EDUCATION INSTRUCTOR, HUMAN SERVICE COORDINATOR [address] [place] [address] Social History Tobacco Use Types Packs/Day Years Used Date Smoking Tobacco: Never Smokeless Tobacco: Never Alcohol Use Standard Drinks/Week Comments Yes 0 (1 standard drink = 0.6 oz pur e alcohol) 1 glass of wine a month Comments No Sex and Gender Information Value Date Recorded Sex Assigned at Not on file Legal Sex Female 9:54 PM CDT Gender Identity Not on file Sexual Orientation Not on file 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 Industry 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 Start Date 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 Not on file Not on file Not on file documented as of this encounter Plan of Treatment Upcoming Encounters Date Type Department Care Team (Late Contact Info) Description 12/20/2024 10:00 AM CDT [facility] [address] [place] [phone] Angela Ferrara, TEACHER EDUCATION INSTRUCTOR, [employer] MACHINE [address] [place] [address] documented as of this encounter Procedures Procedure Name Priority Date/Time Associated Diagnosis Comments SARS-COV-2 BY MOLECULAR Routine 03/07/2020 9:17 AM MOTORCYCLE REPAIRER documented in this encounter Results * SARS-COV-2 BY MOLECULAR (03/07/2020 9:17 AM MOTORCYCLE REPAIRER) SARSCOV2 NOT DETECTED (Referen ce Range for this test is Not Detected ) [facility] FAST DX 03/08/2020 11:19 AM MOTORCYCLE REPAIRER [facility] Comment:This test was perfor med by a PCR method. Other NASOPHARYNGEAL STRUCTURE / Unknown Non-Phlebotomy Collection / Unknown 03/07/2020 9:17 AM MOTORCYCLE REPAIRER 03/07/2020 11:26 AM MOTORCYCLE REPAIRER Narrative [facility] - 03/08/2020 11:19 AM MOTORCYCLE REPAIRER Authorized Fact Sheets about this test for providers and patients are available at: https://www.fda.gov/medical-devices/ecmjujwyc-ktvlpueutp-cyqxbrd-devices/emergen -us e-authorizations us Wendy Porras TEACHER EDUCATION INSTRUCTOR, HUMAN SERVICE COORDINATOR MICROBIOLOGY - GENE RAL ORDERABLES Final Result [facility] [address] [place] [address], documented in this encounter Visit Diagnoses Not on filedocumented in this encounter Additional Health Concerns Infection Onset Date Last Indicated Resolved Time COVID - 19 03/07/2020 03/07/2020 03/12/2020 1:33 PM MOTORCYCLE REPAIRER COVID - 19 03/21/2020 04/11/2020 04/14/2020 9:09 AM MOTORCYCLE REPAIRER COVID - 19 02/09/2024 02/09/2024 02/09/2024 8:24 PM MOTORCYCLE REPAIRER Assessment Noted Time PHQ-9 Depression Total Score: 0 06/25/19 18 12:00 PM CDT documented as of this encounter Care Teams Transportation Project Manager Relationship Specialty Start Date End Date Fernando Rucker MD [address] [address] PCP - General Family Medicine 05/11/15 Sylvester Graves MD [address] [place] [address] Consulting Physician Neurology 06/17/23 documented as of this encounter
--- OUTSIDE RECORDS SUMMARY | 2024-04-16 12:01 | XMS_ITS | Referral Summary ---
Author Organization [facility] Address [address] [place] [address] Care Team Providers Care Commission Agent Livestock Name Role Phone Fernando Rucker MD Primary Care Provider [phone] Encounters Date Type Department Care Team Description 03/29/2024 Telephone [employer] at [address] [place] [phone] Mary Pichardo MA 03/14/2024 5:24 PM TANK HOUSE SUPERVISOR - 03/14/2024 9:29 PM [employer]ANK HOUSE SUPERVISOR Emergency [facility] Emergency Department 1 [place] [address] Dizziness (Primary Dx); Nausea and vomiting, unspecified vomiting type Discharge Disposition: Discharge to home or self care 03/01/2024 Telephone [employer] at [address] [phone] Sam Roldan MA 02/22/2024 [facility] Post Discharge Follow up phone call [facility] 1 [place] [address] Lizette Diaz 02/19/2024 10:20 AM TANK HOUSE SUPERVISOR - 02/21/2024 1:03 PM TANK HOUSE SUPERVISOR Hospital Encounter [facility] IM[facility] 1 [place] [address] Ariel Oreilly MD Bross, MD Mariola Basestt Chandni, MD Hypokalemia due to loss of potassium (Primary Dx); Dehydration; Syncope without other cardiovascular symptoms; EKG abnormalities; Anemia, unspecified type Discharge Disposition: Discharge to home or self care 02/19/2024 11:54 AM TANK HOUSE SUPERVISOR - 02/19/2024 11:59 PM TANK HOUSE SUPERVISOR Hospital Encounter [facility] Emergency, Room R Discharge Disposition: Discharge to home or self care 02/10/2024 4:32 PM TANK HOUSE SUPERVISOR - 02/13/2024 11:35 AM T[employer] HOUSE SUPERVISOR Hospital Encounter [facility] [place] [facility] Department 1 [place] [address] Inocencio Miranda MD Nikolic, Jelena, MD Diastolic dysfunction (Primary Dx); COPD exacerbation (HCC); SIRS (systemic inflammatory response syndrome) (HCC) Discharge Disposition: Discharge to home or self care 02/10/2024 4:10 PM TANK HOUSE SUPERVISOR - 02/10/2024 11:59 PM TANK HOUSE SUPERVISOR Hospital Encounter [facility] Emergency, Room R Discharge Disposition: Discharge to home or self care 01/27/2024 8:45 AM TANK HOUSE SUPERVISOR Office Visit [employer] at [address] [place] [phone] Maris Mcfarlane MD Diastolic dysfunction (Primary Dx); Pulmonary hypertension (HCC); Essential hypertension; Chronic obstructive pulmonary disease, unspecified COPD type (HCC); Vertigo, benign positional; Hypotension due to drugs; Atrial fibrillation, unspecified type (HCC); On continuous oral anticoagulation 01/25/2024 Telephone [employer] at [address] [place] [phone] Maris Mcfarlane MD from Last 3 Months Allergies Active Allergy Reactions Criticality Noted Date Comments Metoclopramide Nalbuphine Prochlorperazine Promethazine Sumatriptan Medications cyanocobalamin (Vitamin B-12) 1,000 mcg/mL injection Last of month 02/24/20 17 Active metoprolol XL (TOPROL-XL) 50 mg extended release tablet Take 1 tablet (50 mg total) by mouth daily 30 tablet 04/08/19 24 Active amitriptyline (ELAVIL) 10 mg tablet Take 1 tablet (10 mg total) by mouth nightly Active atorvastatin (LIPITOR) 10 mg tablet Take 1 tablet (10 mg total) by mouth daily 06/17/19 24 Active busPIRone (BUSPAR) 10 mg tablet Take 1 tablet (10 mg total) by mouth 2 (two) times a day Active cholecalciferol (VITAMIN D-3) 50,000 unit capsule Take 1 capsule (50,000 Units total) by mouth once a week 01/20/20 24 Active ferrous sulfate 325 mg (65 mg of elemental iron) tablet Take 1 tablet (65 mg of elemental iron total) by mouth daily with breakfast Active Bevespi Aerosphere 9-4.8 mcg inhaler Inhale 2 puffs 2 (two) times a day 05/11/19 24 Active methotrexate 2.5 mg tablet Take 1 tablet (2.5 mg total) by mouth 3 tablets a week 10/27/19 24 Active buPROPion XL (WELLBUTRIN XL) 150 mg 24 hr tablet Take 1 tablet (150 mg total) by mouth pipeline inspector before breakfast 10/12/19 24 Active butalbital-acetami nophen-caffeine (ESGIC) 50-325-40 mg per tablet Take 1 tablet by mouth every 6 (six) hours as needed for headaches Active folic acid (FOLVITE) 1 mg tablet Take 1 tablet (1 mg total) by mouth daily 10/27/19 24 025 Active polyethylene glycol (MIRALAX) 17 gram/dose bulk powder Take 17 g by mouth once 10/02/19 16 Active vitamins-lipotropi cs (Lipo-Flavonoid Plus) 200-100 mg tablet Take 1 tablet by mouth 2 (two) times a day Active albuterol HFA (PROVENTIL HFA,VENTOLIN HFA,PROAIR HFA) 90 mcg/actuation inhaler Inhale 2 puffs every 6 (six) hours as needed Active albuterol 2.5 mg /3 mL (0.083 %) nebulizer solution Take 3 mL (2.5 mg total) by nebulization every 6 (six) hours as needed Active loperamide (IMODIUM A-D) 2 mg tablet Take 1 tablet (2 mg total) by mouth 4 (four) times a day as needed Active HYDROcodone-acetam inophen (NORCO) 7.5-325 mg per tablet Take 1 tablet by mouth every 6 (six) hours as needed 11/16/20 24 Active furosemide (LASIX) 40 mg tablet Take 1 tablet (40 mg total) by mouth daily 30 tablet 2 02/13/20 24 025 Active apixaban (ELIQUIS) 5 mg tablet Take 1 tablet (5 mg total) by mouth 2 (two) times a day 02/22/20 24 Active potassium chloride ER (KLOR-CON) 20 mEq CR tablet Take 1 tablet (20 mEq total) by mouth daily 30 tablet 02/21/20 24 Active ondansetron ODT (ZOFRAN-ODT) 4 mg disintegrating tablet Dissolve 1 tablet oral every 4 hours as needed for nausea or vomiting. Collaborating physician Ariel Oreilly MD 20 tablet 03/14/20 24 Active Active Problems Problem Noted Date Diagnosed Date Hypokalemia due to loss of potassium 02/19/2024 COPD exacerbation 02/10/2024 Diastolic dysfunction 04/10/2023 Chronic obstructive pulmonary disease 04/10/2023 Pulmonary hypertension 04/10/2023 Essential hypertension 04/10/2023 Vertigo 04/10/2023 B12 injections - at home 05/25/2014 Overview (06/19/2016): B12 injections - at home Social History Tobacco Use Types Packs/Day Years Used Date Smoking Tobacco: Never Smokeless Tobacco: Never Alcohol Use Standard Drinks/Week Comments Not Currently 0 (1 standard drink = 0.6 oz pur e alcohol) [facility] Utilities Answer Date Recorded In the past 12 months has [employer], gas, oil, or water [employer] threatened to shut off services in your home? No 02/19/2024 Social Connection and Isolat ion Panel [NHANES] Answer Date Recorded In a typical week, how many times do you talk on the phone with family, friends, or neighbors? More than three times a week 02/19/2024 How often do you get togethe r with friends or relatives? Once a week 02/19/2024 How often do you attend chur or buddhist services? Never 02/19/2024 Do you belong to any clubs o r organizations such as uatsdin groups, unions, fraternal or athletic groups, or school groups? No 02/19/2024 How often do you attend meet ings of the clubs or organizations you belong to? Never 02/19/2024 Are you , , di vorced, , never , or living with a partner? 02/19/2024 AUDIT-C Answer Date Recorded Q1: How often do you have a drink containing alcohol? Never 02/19/2024 Q2: How many drinks containi ng alcohol do you have on a typical day when you are drinking? Patient does not drink Q3: How often do you have si x or more drinks on one occasion? Never 02/19/2024 Overall Financial Resource Strain (CARDIA) Answe r Date Recorded How hard is it for you to pa y for the very basics like food, housing, medical care, and heating? Not hard at all 02/19/2024 Hunger Vital Sign Answer Date Recorded Within the past 12 months, y ou worried that your food would run out before you got the money to buy more. Never true 02/19/20 24 Within the past 12 months, t he food you bought just didn't last and you didn't have money to get more. Never true 02/19/2024 PRAPARE - Transportation Answer Date Re corded In the past 12 months, has l ack of transportation kept you from medical appointments or from getting medications? No 08/2023 In the past 12 months, has l ack of transportation kept you from meetings, work, or from getting things needed for daily living? No 02/19/2024 Housing Stability Vital Sign Answer Gm e Recorded In the last 12 months, was t here a time when you were not able to pay the mortgage or rent on time? No 02/19/2024 In the past 12 months, how m any times have you moved where you were living? 0 02/19/2024 At any time in the past [facility], were you homeless or living in a long-term (including now)? No 02/19/2024 Personal Safety Answer Date Recorded Have you ever been in or are you currently in a harmful physical or emotional relationship or is someone making you feel afraid or unsafe? Denies 03/14/2024 Comments No Sex and Gender Information Value Date Recorded Sex Assigned at Not on file Legal Sex Female 12:11 AM TANK HOUSE SUPERVISOR Gender Identity Not on file Sexual Orientation Not on file Last Filed Vital Signs Vital Sign Reading Time Taken Comments Blood Pressure 144/83 03/14/2024 1:52 PM TANK HOUSE SUPERVISOR Pulse 85 03/14/2024 5:54 PM TANK HOUSE SUPERVISOR Temperature 36.6 ??C (97.8 ??F) 03/14/2024 1:51 PM CS T Respiratory Rate 18 03/14/2024 5:54 PM TANK HOUSE SUPERVISOR Oxygen Saturation 95% 03/14/2024 5:54 PM TANK HOUSE SUPERVISOR Inhaled Oxygen Concentration - - Weight 59 kg (130 lb) 03/14/2024 1:52 PM TANK HOUSE SUPERVISOR Height 157.5 cm (5' 2 ) 02/19/2024 7:15 PM TANK HOUSE SUPERVISOR Body Mass Index 23.78 02/19/2024 7:15 PM TANK HOUSE SUPERVISOR Plan of Treatment Not on file Procedures Procedure Name Priority Date/Time Associated Diagnosis Comments TROPONIN T HIGH-SENSITIVITY 2-HOUR Timed 03/14/2024 8:06 [address] [address] HEAD WO CONTRAST ED 03/14/2024 6 :58 PM T[employer] HOUSE SUPERVISOR INFLUENZA A/B, RSV, AND COVID-19 PCR Routine 03/14/2024 6:23 PM TANK HOUSE SUPERVISOR PRO B-TYPE NATRIURETIC PEPTIDE Add-On 03/14/2024 5:38 PM TANK HOUSE SUPERVISOR EGFR STAT 03/14/2024 5:38 PM TANK HOUSE SUPERVISOR DIFFERENTIAL AUTO STAT 03/14/2024 5:3 8 PM T[employer] HOUSE SUPERVISOR TROPONIN T HIGH-SENSITIVITY SERIES (BASELINE, 2HR, 4HR, 6HR) STAT 03/14/2024 5:38 PM TANK HOUSE SUPERVISOR CBC WITH AUTO DIFFERENTIAL STAT 03/14/2024 5:38 PM TANK HOUSE SUPERVISOR COMPREHENSIVE METABOLIC PANEL STAT 03/14/2024 5:38 PM TANK HOUSE SUPERVISOR XR CHEST 1 VIEW ED 03/14/2024 2:19 PM TANK HOUSE SUPERVISOR ECG 12-LEAD STAT 03/14/2024 1:57 PM TANK HOUSE SUPERVISOR EGFR Routine 02/21/2024 2:43 AM TANK HOUSE SUPERVISOR DIFFERENTIAL AUTO Routine 02/21/2024 2:4 3 AM T[employer] HOUSE SUPERVISOR LACTATE Routine 02/21/2024 2:43 AM T[employer] HOUSE SUPERVISOR CBC WITH AUTO DIFFERENTIAL Routine 02/21/2024 2:43 AM TANK HOUSE SUPERVISOR MAGNESIUM Routine 02/21/2024 2:43 AM T[employer] HOUSE SUPERVISOR COMPREHENSIVE METABOLIC PANEL Routine 02/21/2024 2:43 AM T[employer] HOUSE SUPERVISOR POTASSIUM LEVEL Timed 02/20/2024 4:15 PM T[employer] HOUSE SUPERVISOR BLOOD CULTURE Routine 02/20/2024 12:03 PM T[employer] HOUSE SUPERVISOR BLOOD CULTURE Routine 02/20/2024 11:44 AM T[employer] HOUSE SUPERVISOR LIPID PANEL Routine 02/20/2024 4:25 AM T[employer] HOUSE SUPERVISOR EGFR Routine 02/20/2024 4:25 AM T[employer] HOUSE SUPERVISOR DIFFERENTIAL AUTO Routine 02/20/2024 4:2 5 AM T[employer] HOUSE SUPERVISOR CBC WITH AUTO DIFFERENTIAL Routine 02/20/2024 4:25 AM T[employer] HOUSE SUPERVISOR MAGNESIUM Routine 02/20/2024 4:25 AM T[employer] HOUSE SUPERVISOR COMPREHENSIVE METABOLIC PANEL Routine 02/20/2024 4:25 AM TANK HOUSE SUPERVISOR SEPSIS LACTATE WITH REFLEX Timed 02/19/2024 10:56 PM T[employer] HOUSE SUPERVISOR EGFR Timed 02/19/2024 7:44 PM T[employer] HOUSE SUPERVISOR RENAL FUNCTION PANEL Timed 02/19/2024 7:44 PM T[employer] HOUSE SUPERVISOR SEPSIS LACTATE WITH REFLEX Timed 02/19/2024 7:44 PM T[employer] HOUSE SUPERVISOR TROPONIN T HIGH-SENSITIVITY 4-HR Timed 02/19/2024 2:56 PM T[employer] HOUSE SUPERVISOR SEPSIS LACTATE WITH REFLEX Routine 02/19/2024 2:56 PM T[employer] HOUSE SUPERVISOR URINALYSIS AND REFLEX TO MICROSCOPIC AND CULTURE Routine 02/19/2024 12:[address] [address] CERVICAL SPINE WO CONTRAST ED 02/19/2024 11:55 AM [employer] [address] CT HEAD WO CONTRAST ED 02/19/2024 1 1:55 AM TANK HOUSE SUPERVISOR XR CHEST 1 VIEW ED 02/19/2024 11:25 AM T[employer] HOUSE SUPERVISOR MAGNESIUM Add-On 02/19/2024 10:59 AM T[employer] HOUSE SUPERVISOR EGFR STAT 02/19/2024 10:59 AM T[employer] HOUSE SUPERVISOR DIFFERENTIAL AUTO STAT 02/19/2024 10: 59 AM T[employer] HOUSE SUPERVISOR TROPONIN T HIGH-SENSITIVITY SERIES (BASELINE, 2HR, 4HR, 6HR) STAT 02/19/2024 10:59 AM TANK HOUSE SUPERVISOR PRO B-TYPE NATRIURETIC PEPTIDE STAT 02/19/2024 10:59 AM T[employer] HOUSE SUPERVISOR COMPREHENSIVE METABOLIC PANEL STAT 02/19/2024 10:59 AM T[employer] HOUSE SUPERVISOR CBC WITH AUTO DIFFERENTIAL STAT 02/19/2024 10:59 AM TANK HOUSE SUPERVISOR ECG 12-LEAD Routine 02/19/2024 10:43 AM TANK HOUSE SUPERVISOR POCT GLUCOSE DEVICE Routine 02/13/2024 7:49 AM T[employer] HOUSE SUPERVISOR POCT GLUCOSE DEVICE Routine 02/13/2024 4 :53 AM T[employer] HOUSE SUPERVISOR EGFR Routine 02/13/2024 4:46 AM T[employer] HOUSE SUPERVISOR DIFFERENTIAL AUTO Routine 02/13/2024 4:4 6 AM T[employer] HOUSE SUPERVISOR MAGNESIUM Routine 02/13/2024 4:46 AM T[employer] HOUSE SUPERVISOR COMPREHENSIVE METABOLIC PANEL Routine 02/13/2024 4:46 AM TANK HOUSE SUPERVISOR CBC WITH AUTO DIFFERENTIAL Routine 02/13/2024 4:46 AM TANK HOUSE SUPERVISOR PNEUMONIA PCR WITH AEROBIC CULTURE AND GRAM STAIN Routine 02/12/2024 9:27 PM T[employer] HOUSE SUPERVISOR POCT GLUCOSE DEVICE Routine 02/12/2024 9 :17 PM T[employer] HOUSE SUPERVISOR POCT GLUCOSE DEVICE Routine 02/12/2024 4 :56 PM TANK HOUSE SUPERVISOR TRANSTHORACIC ECHO (TTE) COMPLETE W DOPPLER/CF WO CONTRAST Routine 02/12/2024 12:59 PM T[employer] HOUSE SUPERVISOR POCT GLUCOSE DEVICE Routine 02/12/2024 1 2:17 PM TANK HOUSE SUPERVISOR EGFR Routine 02/12/2024 7:58 AM TANK HOUSE SUPERVISOR DIFFERENTIAL AUTO Routine 02/12/2024 7:5 8 AM TANK HOUSE SUPERVISOR LACTATE Routine 02/12/2024 7:58 AM T[employer] HOUSE SUPERVISOR PROCALCITONIN Routine 02/12/2024 7:58 AM T[employer] HOUSE SUPERVISOR MAGNESIUM Routine 02/12/2024 7:58 AM T[employer] HOUSE SUPERVISOR COMPREHENSIVE METABOLIC PANEL Routine 02/12/2024 7:58 AM TANK HOUSE SUPERVISOR CBC WITH AUTO DIFFERENTIAL Routine 02/12/2024 7:58 AM T[employer] HOUSE SUPERVISOR POCT GLUCOSE DEVICE Routine 02/12/2024 7 :44 AM T[employer] HOUSE SUPERVISOR POCT GLUCOSE DEVICE Routine 02/12/2024 4 :17 AM TANK HOUSE SUPERVISOR EGFR Routine 02/12/2024 3:55 AM TANK HOUSE SUPERVISOR DIFFERENTIAL AUTO Routine 02/12/2024 3:5 5 AM TANK HOUSE SUPERVISOR LACTATE Routine 02/12/2024 3:55 AM TANK HOUSE SUPERVISOR MAGNESIUM Routine 02/12/2024 3:55 AM TANK HOUSE SUPERVISOR COMPREHENSIVE METABOLIC PANEL Routine 02/12/2024 3:55 AM TANK HOUSE SUPERVISOR CBC WITH AUTO DIFFERENTIAL Routine 02/12/2024 3:55 AM TANK HOUSE SUPERVISOR POCT GLUCOSE DEVICE Routine 02/12/2024 1 2:27 AM TANK HOUSE SUPERVISOR POCT GLUCOSE DEVICE Routine 02/11/2024 8 :32 PM T[employer] HOUSE SUPERVISOR POCT GLUCOSE DEVICE Routine 02/11/2024 5 :01 [address] [employer] [address] CT CHEST WO CONTRAST IP Routine 02/11/2024 12:37 PM TANK HOUSE SUPERVISOR LEGIONELLA ANTIGEN, URINE Routine 02/11/2024 7:50 AM TANK HOUSE SUPERVISOR STREP PNEUMONIAE AG, URINE Routine 02/11/2024 7:50 AM TANK HOUSE SUPERVISOR MRSA ONLY (STAPHYLOCOCCUS AUREUS) PCR Routine 02/11/2024 6:12 AM TANK HOUSE SUPERVISOR EGFR Routine 02/10/2024 10:46 PM TANK HOUSE SUPERVISOR DIFFERENTIAL AUTO Routine 02/10/2024 10: 46 PM TANK HOUSE SUPERVISOR SEPSIS LACTATE WITH REFLEX Timed 02/10/2024 10:46 PM TANK HOUSE SUPERVISOR COMPREHENSIVE METABOLIC PANEL Routine 02/10/2024 10:46 PM TANK HOUSE SUPERVISOR CBC WITH AUTO DIFFERENTIAL Routine 02/10/2024 10:46 PM TANK HOUSE SUPERVISOR TROPONIN T HIGH-SENSITIVITY 6-HOUR Timed 02/10/2024 10:46 PM TANK HOUSE SUPERVISOR SEPSIS LACTATE WITH REFLEX Timed 02/10/2024 8:55 PM TANK HOUSE SUPERVISOR TROPONIN T HIGH-SENSITIVITY 4-HR Timed 02/10/2024 8:55 PM TANK HOUSE SUPERVISOR XR CHEST 1 VIEW ED 02/10/2024 6:31 PM TANK HOUSE SUPERVISOR TROPONIN T HIGH-SENSITIVITY 2-HOUR Timed 02/10/2024 6:24 PM TANK HOUSE SUPERVISOR BLOOD CULTURE STAT 02/10/2024 6:24 PM TANK HOUSE SUPERVISOR BLOOD CULTURE STAT 02/10/2024 6:24 PM TANK HOUSE SUPERVISOR BLOOD GAS, VENOUS STAT 02/10/2024 5:4 7 PM TANK HOUSE SUPERVISOR SEPSIS LACTATE WITH REFLEX STAT 02/10/2024 5:47 PM TANK HOUSE SUPERVISOR INFLUENZA A/B, RSV, AND COVID-19 PCR Routine 02/10/2024 5:47 PM TANK HOUSE SUPERVISOR EGFR STAT 02/10/2024 4:50 PM TANK HOUSE SUPERVISOR DIFFERENTIAL AUTO STAT 02/10/2024 4:5 0 PM TANK HOUSE SUPERVISOR PRO B-TYPE NATRIURETIC PEPTIDE STAT 02/10/2024 4:50 PM TANK HOUSE SUPERVISOR TROPONIN T HIGH-SENSITIVITY SERIES (BASELINE, 2HR, 4HR, 6HR) STAT 02/10/2024 4:50 PM TANK HOUSE SUPERVISOR D-DIMER, QUANTITATIVE STAT 02/10/2024 4:50 PM TANK HOUSE SUPERVISOR COMPREHENSIVE METABOLIC PANEL STAT 02/10/2024 4:50 PM TANK HOUSE SUPERVISOR CBC WITH AUTO DIFFERENTIAL STAT 02/10/2024 4:50 PM TANK HOUSE SUPERVISOR ECG 12-LEAD STAT 02/10/2024 4:43 PM TANK HOUSE SUPERVISOR from Last 3 Months Results * Troponin T high-sensitivity 2-hour (03/14/2024 8:06 PM TANK HOUSE SUPERVISOR) Trop T hs 11 <=14 ng/L Comment: Interpretive Data For further hscTnT resources including the diagnostic algorithm and an aid in interpretation, copy and paste this link: https://nrl.testcatalog.org/show/hsTrop Current Interpretive Data last revised 2020. Trop T hs delta -1 ng/L [facility] ([place]) Trop T hs interp Insignificant [facility] ([place]) Blood 03/14/2024 8:06 PM TANK HOUSE SUPERVISOR 03/14/2024 8:09 PM TANK HOUSE SUPERVISOR us Waldemar Stearns MD LAB BLOOD ORDERABLES Final R esult [facility] ([place]) 1 [facility] Department [place] [address] * CT Head WO Contrast (03/14/2024 6:58 PM TANK HOUSE SUPERVISOR) Anatomical Region Laterality Modality Head and Neck N/A Computed Tomogra phy 03/14/2024 7:43 PM TANK HOUSE SUPERVISOR Narrative 03/14/2024 7:45 PM TANK HOUSE SUPERVISOR EXAM DESCRIPTION: CT HEAD WO CONTRAST REASON FOR STUDY: Dizziness, persistent/recurrent, cardiac or vascular cause suspected ?? Dizziness ??Stroke back in May ??Fell three weeks ago and is on blood thinners ?? TECHNIQUE: Axial images acquired through the brain without intravenous contrast. ??Images stored on PACS. ?? Automated exposure control was used as a dose optimization technique for this examination. COMPARISON: 02/19/2024 FINDINGS: BRAIN: ??No mass, hemorrhage, or recent infarct. ?? Scattered areas of encephalomalacia in the right posterior frontal lobe unchanged. ??Minimal background chronic white matter ischemic change. ?Volume within normal limits for age. VASCULAR: ??No dense vessel or obvious aneurysm. EXTRA-AXIAL SPACES: ??No mass or fluid collection. ORBITS/GLOBES: Unremarkable. SOFT TISSUES: ??Small right posterior scalp contusion decreased from 02/19/2024. ?? BONES/SINUSES: ??No fracture or lesion. ?? Paranasal sinuses and other skullbase airspaces are clear. IMPRESSION: No acute abnormality identified. ??Mostly resolved right posterior scalp contusion. ?? THIS IS AN ELECTRONICALLY VERIFIED FINAL REPORT 03/14/2024 7:45 PM - Electronically signed by ??Aleixs Bernard M.D. AR: BIMAL D: ??03/14/2024 7:45 PM T: ??03/14/2024 7:45 PM Report ID: [id number] Reading Location: ??[id number] Procedure Note Alexis Bernard MD - 03/14/2024 EXAM DESCRIPTION: CT HEAD WO CONTRAST REASON FOR STUDY: Dizziness, persistent/recurrent, cardiac or vascularcause suspected Dizziness Stroke back in May Fell three weeks ago and is on bloodthinners TECHNIQUE: Axial images acquired through the brain without intravenous contrast. Images stored on PACS. Automated exposure control was used asa dose optimization technique for this examination. COMPARISON: 02/19/2024 FINDINGS: BRAIN: No mass, hemorrhage, or recent infarct. Scattered areas of encephalomalacia in the right posterior frontal lobe unchanged. Minimal background chronic white matter ischemic change. Volume within normal limits for age. VASCULAR: No dense vessel or obvious aneurysm. EXTRA-AXIAL SPACES: No mass or fluid collection. ORBITS/GLOBES: Unremarkable. SOFT TISSUES: Small right posterior scalp contusion decreased from 02/19/2024. BONES/SINUSES: No fracture or lesion. Paranasal sinuses and otherskullbase airspaces are clear. IMPRESSION: No acute abnormality identified. Mostly resolved right posterior scalp contusion. THIS IS AN ELECTRONICALLY VERIFIED FINAL REPORT 03/14/2024 7:45 PM - Electronically signed by Alexis Bernard M.D. AR: BIMAL Report ID: [id number] Reading Location: [id number] Rubina Vargas DEPUTY FIRE CHIEF IMG CT PROCEDURES Fi nal Result * Influenza A/B, RSV, and COVID-19 PCR Nasopharyngeal (03/14/2024 6:23 PM TANK HOUSE SUPERVISOR) COVID-19 RNA Negative Negative Influenza A RNA Negative Negative [facility] Influenza B RNA Negative Negative [facility] ([place]) RSV RNA Negative Negative [facility] Comment: Interpretive data: Testing performed by [facility]. This test is performed using the [employer] Xpert Xpress CoV-2/Flu/RSV plus assay. This is a multiplex, real- time reverse transcriptase PCR assay intended for the qualitative detection of nucleic acid from SARS-CoV-2, influenza A, influenza B, and respiratory syncytial virus. This assay has been cleared by the [place] Food and Drug administration. The performance characteristics have been verified by the [facility]. ?? Results must be considered in the clinical context, and a negative result does not rule out infection. Interpretive Data last revised 2023 Nasopharyngeal 03/14/2024 6: 23 PM TANK HOUSE SUPERVISOR 03/14/2024 6:28 PM TANK HOUSE SUPERVISOR Narrative [facility] ([place]) - 03/14/2024 7:12 PM TANK HOUSE SUPERVISOR Is the Patient experiencing symptoms consistent with COVID?->Yes Rubina Vargas NP LAB MICROBIOLOGY - G ENERAL ORDERABLES Final Result [facility]) 1 [facility] Department [place] [address] * Troponin T high-sensitivity series (baseline, 2hr, 4hr, 6hr) (03/14/2024 5:38 PM TANK HOUSE SUPERVISOR) Trop T hs 12 <=14 ng/L Comment: Interpretive Data For further hscTnT resources including the diagnostic algorithm and an aid in interpretation, copy and paste this link: https://nrl.testcatalog.org/show/hsTrop Current Interpretive Data last revised 2020. Blood 03/14/2024 5:38 PM TANK HOUSE SUPERVISOR 03/14/2024 5:44 PM TANK HOUSE SUPERVISOR us Waldemar Stearns MD LAB BLOOD ORDERABLES Final R esult Performing Organization Address City/[facility]/ZIP Co de Phone Number [facility] ([place]) 1 [facility] [place] [address] * (ABNORMAL) eGFR (03/14/2024 5:38 PM TANK HOUSE SUPERVISOR) eGFR 58(L) >=60 mL/min/1. 73 m2 Comment: Interpretive Data Reference Interval Normal ?>/= 90 mL/min/1.73m2 Mildly decreased* ? 60 - 89 mL/min/1.73m2 Mildly to moderately decreased ?45 - 59 mL/min/1.73m2 Moderately to severely decreased ??30 - 44 mL/min/1.73m2 Severely decreased ?15 - 29 mL/min/1.73m2 Kidney Failure ?< 15 ??mL/min/1.73m2 *Relative to young adult level Estimated glomerular filtration rate is determined by the 2020 CKD-EPI equation recommended by the National Kidney Foundation (A Unifying Approach to GFR Estimation: Recommendations of the NKF-ASK Task Force on Reassessing the Inclusion of Race in Diagnosing Kidney Disease, JASN 202). The CKD-EPI equation should not be used for patients with unstable renal function and has not been validated in children and those over 70. Current interpretive data was last reviewed 2021. Blood 03/14/2024 5:38 PM TANK HOUSE SUPERVISOR 03/14/2024 5:44 PM TANK HOUSE SUPERVISOR us Waldemar Stearns MD LAB BLOOD ORDERABLES Final R esult [facility] ([place]) 1 [facility] [place] [address] * (ABNORMAL) Differential, auto (03/14/2024 5:38 PM TANK HOUSE SUPERVISOR) Neutrophil abs 10.6(H) 1.5 - 6.5 K/cumm Imm gran abs 0.1 0.0 - 0.1 K/cumm [facility] ([place]) Lymphocyte abs 1.7 0.8 - 3.3 K/cumm [facility] ([place]) Monocyte abs 0.7 0.2 - 0.8 K/cumm [facility] ([place]) Eosinophil abs 0.0 0.0 - 0.5 K/cumm [facility] ([place]) Basophil abs 0.0 0.0 - 0.1 K/cumm [facility] ([place]) Neutrophil pct 80.9 % [facility] ([place]) Comment: Interpretive Data Percent cell count reference ranges are not reported, since discordance with absolute values may lead to misinterpretation of CBC data. Current Interpretive Data was last revised on 2017. Imm gran pct 1.0 % [facility] ([place]) Comment: Interpretive Data Percent cell count reference ranges are not reported, since discordance with absolute values may lead to misinterpretation of CBC data. Current Interpretive Data was last revised on 2017. Lymphocyte pct 12.7 % [facility] ([place]) Comment: Interpretive Data Percent cell count reference ranges are not reported, since discordance with absolute values may lead to misinterpretation of CBC data. Current Interpretive Data was last revised on 2017. Monocyte pct 5.1 % [facility] ([place]) Comment: Interpretive Data Percent cell count reference ranges are not reported, since discordance with absolute values may lead to misinterpretation of CBC data. Current Interpretive Data was last revised on 2017. Eosinophil pct 0.0 % [facility] ([place]) Comment: Interpretive Data Percent cell count reference ranges are not reported, since discordance with absolute values may lead to misinterpretation of CBC data. Current Interpretive Data was last revised on 2017. Basophil pct 0.3 % [facility] ([place]) Comment: Interpretive Data Percent cell count reference ranges are not reported, since discordance with absolute values may lead to misinterpretation of CBC data. Current Interpretive Data was last revised on 2017. Blood 03/14/2024 5:38 PM [employer] HOUSE SUPERVISOR 03/14/2024 5:43 PM [employer] HOUSE SUPERVISOR us Waldemar Stearns MD LAB BLOOD ORDERABLES Final R esult [facility] ([place]) 1 [facility] Department [place] [address] * Pro B-type natriuretic peptide (03/14/2024 5:38 PM [employer] HOUSE SUPERVISOR) NT-proBNP 159 <=300 pg/mL Comment: Interpretive Comments: A. Dyspnea in Acute Care Setting All Ages: ?< 300 pg/ml, acute heart failure unlikely. < 50 yrs: ?300 - 450 pg/ml, further investigation warranted. ? > 450 pg/ml, acute heart failure likely. 50 - 74 yrs: ? 300 - 900 pg/ml, further investigation warranted. ? > 900 pg/ml, acute heart failure likely . > or = 75 yrs: ? 450 - 1800 pg/ml, further investigation warranted. ? > 1800 pg/ml, acute heart failure likely. B. Non-acute Setting < 75 yrs ? < 125 pg/ml, rules out heart failure. ? > or = 125 pg/ml, further investigation warranted. > or = 75 yrs ?< 450 pg/ml, rules out heart failure. ? > or = 450 pg/ml, further investigation warranted. - Knowledge of each individual patient's NT-proBNP range may be more useful than using similar cut-points for every patient. Please note that marked elevations in NT-proBNP levels may be observed in state other than Left Ventricular Congestive Failure, including: acute coronary syndromes, right heart strain/failure (including pulmonary embolism and cor pulmonale), critical illness, renal failure, as well as advanced age. - References: 1. Tim SALOMON et.al. Eur Heart J. 2006:27:330-337. 2. Darien FREGOSO, Zahra JOLLY. J. AM Lizbeth Cardiol: Cardiovasc Imag. 2009;2: 216- 225. Interpretive Data Last Revised Date: 2017. Blood 03/14/2024 5:38 PM [employer] HOUSE SUPERVISOR 03/14/2024 6:24 PM [employer] HOUSE SUPERVISOR us Rubina Vargas NP LAB BLOOD ORDERABLES Final Result [facility] ([place]) 1 [facility] Department [place] [address] * (ABNORMAL) CBC with auto differential (03/14/2024 5:38 PM [employer] HOU[employer] SUPERVISOR) WBC 13.1(H) 3.8 - 9.9 K/cumm Hgb 10.4(L) 11.9 - 15.5 g/dL [facility] ([place]) Hct 33.8(L) 35.6 - 45.5 % [facility] ([place]) Plt 350 150 - 400 K/cumm [facility] ([place]) MPV 9.8 9.1 - 12.3 fL [facility] ([place]) RBC 3.86(L) 3.90 - 5.20 M/cumm [facility] ([place]) MCV 87.6 81.3 - 96.4 fL [facility] ([place]) MCH 26.9(L) 27.1 - 33.3 pg [facility] ([place]) MCHC 30.8(L) 32.3 - 35.7 g/dL [facility] ([place]) RDW CV 18.0(H) 11.1 - 14.9 % [facility] ([place]) RDW SD 56.7(H) 35.7 - 48.1 fL [facility] ([place]) NRBC abs 0.00 0.00 - 0.01 K/cumm [facility] ([place]) Blood 03/14/2024 5:38 PM T[employer] HOUSE SUPERVISOR 03/14/2024 5:43 PM T[employer] HOUSE SUPERVISOR us Waldemar Stearns MD LAB BLOOD ORDERABLES Final R esult [facility] ([place]) 1 [facility] Department [place] [address] * (ABNORMAL) Comprehensive metabolic panel (03/14/2024 5:38 PM [employer] SUPER[employer]OR) Sodium 139 135 - 145 mmol/L Potassium, pl 4.1 3.3 - 4.9 mmol/L [facility] ([place]) Chloride 95(L) 97 - 110 mmol/L [facility] ([place]) CO2 25 22 - 32 mmol/L [facility] ([place]) Anion gap 19(H) 2 - 15 mmol/L [facility] ([place]) BUN 27(H) 6 - 25 mg/dL [facility] ([place]) Creatinine 1.04 0.60 - 1.10 mg/dL [facility] ([place]) Glucose 129 70 - 199 mg/dL [facility] ([place]) Comment: Interpretive Data Fasting glucose >/= 126 mg/dl is diagnostic for diabetes. ?? Fasting is defined as no caloric intake for at least 8 hours. Fasting glucose between 100 mg/dl to 125 mg/dl is diagnostic of prediabetes. In a patient with classic symptoms of hyperglycemia or hyperglycemic crisis, a random glucose >/= 200 mg/dl is diagnostic for diabetes. In the absence of unequivocal hyperglycemia, results should be confirmed by repeat testing. The classification and Diagnosis of Diabetes Diabetes Care 202; 46: S19-S40. Current interpretive data was last revised 2022. Calcium 10.3 8.5 - 10.3 mg/dL [facility] ([place]) Bilirubin, total 0.4 0.1 - 1.2 mg/dL [facility] ([place]) Protein, pl 7.2 6.5 - 8.5 g/dL [facility] ([place]) Albumin 4.5 3.5 - 5.0 g/dL [facility] ([place]) Alk phos 78 40 - 130 Units/L [facility]) ALT 19 7 - 45 Units/L [facility] ([place]) AST 22 10 - 45 Units/L [facility] ([place]) Comment:Slightly Hemolyzed S pecimen Blood 03/14/2024 5:38 PM [employer]SE SUPERVISOR 03/14/2024 5:44 PM [employer]PERVISOR us Waldemar Stearns MD LAB BLOOD ORDERABLES Final R esult [facility] ([place]) 1 [facility] Department [place] [address] * XR Chest 1 Vw Portable (if patient condition/safety warrant portable) (03/14/2024 2:19 PM [employer]PERVISOR) Anatomical Region Laterality Modality Body, Chest N/A Computed Radiogr aphy 03/14/2024 2:50 PM [employer] HOUSE SUPERVISOR Narrative 03/14/2024 2:51 PM [employer] HOUSE SUPERVISOR EXAM DESCRIPTION: XR CHEST 1 VIEW REASON FOR STUDY: Shortness of breath ?? Pt states she has dizziness (spinning). Pt states she has shortness of breath. Pt states she has anemia. Pt states she has had a headache yesterday and today. Pt vomited today. Pt states it has been off and on since yesterday morning ? TECHNIQUE: Single ??radiographic view(s) of the chest. COMPARISON: Prior exam 02/19/2024 and 02/10/2024 FINDINGS: LUNGS: ??Pulmonary vasculature appears normal. ??No infiltrate or effusion. ?? Minimal linear opacity left lung base favors atelectasis. ??Granulomatous change. ?? HEART/MEDIASTINUM: ??Cardiac silhouette normal in size. Mediastinal and hilar contours appear normal. LINES/TUBES: ??None. BONES: ??No acute osseous abnormality. IMPRESSION: Minimal linear opacity left lung base favors atelectasis. THIS IS AN ELECTRONICALLY VERIFIED FINAL REPORT 03/14/2024 2:51 PM - Electronically signed by ??Tee Lentz M.D. MJ: EYAD D: ??03/14/2024 2:51 PM T: ??03/14/2024 2:51 PM Report ID: [id number] Reading Location: ??[id number] Procedure Note Tee Lentz MD - 03/14/2024 EXAM DESCRIPTION: XR CHEST 1 VIEW REASON FOR STUDY: Shortness of breath Pt states she has dizziness (spinning). Pt states she has shortness ofbreath. Pt states she has anemia. Pt states she has had a headache yesterday and today. Pt vomited today. Pt states it has been off and on since yesterday morning TECHNIQUE: Single radiographic view(s) of the chest. COMPARISON: Prior exam 02/19/2024 and 02/10/2024 FINDINGS: LUNGS: Pulmonary vasculature appears normal. No infiltrate or effusion. Minimal linear opacity left lung base favors atelectasis. Granulomatous change. HEART/MEDIASTINUM: Cardiac silhouette normal in size. Mediastinal andhilar contours appear normal. LINES/TUBES: None. BONES: No acute osseous abnormality. IMPRESSION: Minimal linear opacity left lung base favors atelectasis. THIS IS AN ELECTRONICALLY VERIFIED FINAL REPORT 03/14/2024 2:51 PM - Electronically signed by Tee Lentz M.D. MJ: EYAD Report ID: [id number] Reading Location: [id number] us Waldemar Stearns MD IMG XR PROCEDURES Final Resu lt * ECG 12 lead (03/14/2024 1:57 PM [employer]PERVISOR) 03/14/2024 1:57 PM [employer] HOUSE SUPERVISOR Narrative [facility] - 03/14/2024 3:51 PM [employer]SE SUPERVISOR Vent Rate: 86 bpm RR Interval: 697 msec NH Interval: 113 msec QRS Duration: 86 msec QT Interval: 331 msec QTC Interval: 374 msec P-R-T Thicket: 27 - 32 - 36 degrees IMPRESSION: Baseline artifact, probable SINUS RHYTHM WITH SHORT NH INTERVAL BORDERLINE ECG Electronically Signed By: Chapin Padron MD us Waldemar Stearns MD ECG ORDERABLES Final Result [facility] * (ABNORMAL) Lactate (02/21/2024 2:43 AM T[employer] HOUSE SUPERVISOR) Lactate 2.2(H) 0.7 - 2.0 mmol/L Blood 02/21/2024 2:43 AM [employer] HOUSE SUPERVISOR 02/21/2024 2:50 AM [employer] HOUSE SUPERVISOR us Dyan Garnett MD LAB BLOOD ORDERABLES Final Resu lt [facility] ([place]) 1 [facility] Department [place] [address] * eGFR (02/21/2024 2:43 AM T[employer]SE SUPERVISOR) eGFR 80 >=60 mL/min/1. 73 m2 Comment: Interpretive Data Reference Interval Normal ?>/= 90 mL/min/1.73m2 Mildly decreased* ? 60 - 89 mL/min/1.73m2 Mildly to moderately decreased ?45 - 59 mL/min/1.73m2 Moderately to severely decreased ??30 - 44 mL/min/1.73m2 Severely decreased ?15 - 29 mL/min/1.73m2 Kidney Failure ?< 15 ??mL/min/1.73m2 *Relative to young adult level Estimated glomerular filtration rate is determined by the 2020 CKD-EPI equation recommended by the National Kidney Foundation (A Unifying Approach to GFR Estimation: Recommendations of the NKF-ASK Task Force on Reassessing the Inclusion of Race in Diagnosing Kidney Disease, JASN 2020). The CKD-EPI equation should not be used for patients with unstable renal function and has not been validated in children and those over 70. Current interpretive data was last reviewed 2021. Blood 02/21/2024 2:43 AM TANK HOUSE SUPERVISOR 02/21/2024 3:01 AM [employer] HOUSE SUPERVISOR us Wilver Gonzales MD LAB BLOOD ORDERABLES Fi nal Result [facility] ([place]) 1 [facility] Department [place] [address] * (ABNORMAL) Differential, auto (02/21/2024 2:43 AM TANK HOUSE SUPERVISOR) Neutrophil abs 8.0(H) 1.5 - 6.5 K/cumm Imm gran abs 0.1 0.0 - 0.1 K/cumm [facility] ([place]) Lymphocyte abs 3.0 0.8 - 3.3 K/cumm [facility] ([place]) Monocyte abs 0.9(H) 0.2 - 0.8 K/cumm [facility] ([place]) Eosinophil abs 0.1 0.0 - 0.5 K/cumm [facility] ([place]) Basophil abs 0.1 0.0 - 0.1 K/cumm [facility] ([place]) Neutrophil pct 65.9 % [facility] ([place]) Comment: Interpretive Data Percent cell count reference ranges are not reported, since discordance with absolute values may lead to misinterpretation of CBC data. Current Interpretive Data was last revised on 2017. Imm gran pct 0.7 % [facility] ([place]) Comment: Interpretive Data Percent cell count reference ranges are not reported, since discordance with absolute values may lead to misinterpretation of CBC data. Current Interpretive Data was last revised on 2017. Lymphocyte pct 25.2 % [facility] ([place]) Comment: Interpretive Data Percent cell count reference ranges are not reported, since discordance with absolute values may lead to misinterpretation of CBC data. Current Interpretive Data was last revised on 2017. Monocyte pct 7.2 % [facility] ([place]) Comment: Interpretive Data Percent cell count reference ranges are not reported, since discordance with absolute values may lead to misinterpretation of CBC data. Current Interpretive Data was last revised on 2017. Eosinophil pct 0.6 % [facility] ([place]) Comment: Interpretive Data Percent cell count reference ranges are not reported, since discordance with absolute values may lead to misinterpretation of CBC data. Current Interpretive Data was last revised on 2017. Basophil pct 0.4 % [facility] ([place]) Comment: Interpretive Data Percent cell count reference ranges are not reported, since discordance with absolute values may lead to misinterpretation of CBC data. Current Interpretive Data was last revised on 2017. Blood 02/21/2024 2:43 AM TANK HOUSE SUPERVISOR 02/21/2024 2:51 AM [employer]SE SUPERVISOR us Wilver Gonzales MD LAB BLOOD ORDERABLES Fi nal Result [facility] ([place]) 1 [facility] Department [place] [address] * (ABNORMAL) CBC with auto differential (02/21/2024 2:43 AM TANK HOUSE SUPERVISOR) WBC 12.1(H) 3.8 - 9.9 K/cumm Hgb 8.9(L) 11.9 - 15.5 g/dL [facility] ([place]) Hct 30.0(L) 35.6 - 45.5 % [facility] ([place]) Plt 288 150 - 400 K/cumm [facility] ([place]) MPV 9.6 9.1 - 12.3 fL [facility] ([place]) RBC 3.38(L) 3.90 - 5.20 M/cumm [facility] ([place]) MCV 88.8 81.3 - 96.4 fL [facility] ([place]) MCH 26.3(L) 27.1 - 33.3 pg [facility] ([place]) MCHC 29.7(L) 32.3 - 35.7 g/dL [facility] ([place]) RDW CV 16.8(H) 11.1 - 14.9 % [facility] ([place]) RDW SD 53.7(H) 35.7 - 48.1 fL [facility] ([place]) NRBC abs 0.00 0.00 - 0.01 K/cumm [facility] ([place]) Blood 02/21/2024 2:43 AM T[employer] HOUSE SUPERVISOR 02/21/2024 2:51 AM [employer]ANK HOUSE SUPERVISOR Wilver Gonzales MD LAB BLOOD ORDERABLES Fi nal Result [facility] ([place]) 1 [place] [address] * Magnesium (02/21/2024 2:43 AM TANK HOUSE SUPERVISOR) Pathologist [facility] Magnesium 2.2 1.4 - 2.5 mg/dL Blood 02/21/2024 2:43 AM TANK HOUSE SUPERVISOR 02/21/2024 3:01 AM TANK HOUSE SUPERVISOR Wilver Gonzales MD LAB BLOOD ORDERABLES Fi nal Result Performing Organization Address [facility] Co de Phone Number [facility] ([place]) 1 [facility] [place] [address] * (ABNORMAL) Comprehensive metabolic panel (02/21/2024 2:43 AM TANK HOUSE SUPERVISOR) Sodium 142 135 - 145 mmol/L Potassium, pl 3.6 3.3 - 4.9 mmol/L [facility] ([place]) Chloride 109 97 - 110 mmol/L [facility] ([place]) CO2 23 22 - 32 mmol/L [facility] [place]) Anion gap 10 2 - 15 mmol/L [facility] ([place]) BUN 31(H) 6 - 25 mg/dL [facility] ([place]) Creatinine 0.80 0.60 - 1.10 mg/dL [facility] ([place]) Glucose 127 70 - 199 mg/dL [facility] ([place]) Comment: Interpretive Data Fasting glucose >/= 126 mg/dl is diagnostic for diabetes. ?? Fasting is defined as no caloric intake for at least 8 hours. Fasting glucose between 100 mg/dl to 125 mg/dl is diagnostic of prediabetes. In a patient with classic symptoms of hyperglycemia or hyperglycemic crisis, a random glucose >/= 200 mg/dl is diagnostic for diabetes. In the absence of unequivocal hyperglycemia, results should be confirmed by repeat testing. The classification and Diagnosis of Diabetes Diabetes Care 202; 46: S19-S40. Current interpretive data was last revised 2022. Calcium 8.7 8.5 - 10.3 mg/dL [facility] ([place]) Bilirubin, total 0.3 0.1 - 1.2 mg/dL [facility] ([place]) Protein, pl 5.3(L) 6.5 - 8.5 g/dL [facility] ([place]) Albumin 3.4(L) 3.5 - 5.0 g/dL [facility] ([place]) Alk phos 65 40 - 130 Units/L [facility] ([place]) ALT 17 7 - 45 Units/L [facility] ([place]) AST 15 10 - 45 Units/L [facility] ([place]) Blood 02/21/2024 2:43 AM TANK HOUSE SUPERVISOR 02/21/2024 3:01 AM TANK HOUSE SUPERVISOR us Wilver Gonzales MD LAB BLOOD ORDERABLES Fi nal Result [facility] ([place]) 1 [facility] [place] [address] * Potassium (02/20/2024 4:15 PM TANK HOUSE SUPERVISOR) Potassium, pl 4.4 3.3 - 4.9 mmol/L Blood 02/20/2024 4:15 PM TANK HOUSE SUPERVISOR 02/20/2024 4:30 PM TANK HOUSE SUPERVISOR us Bernabe Zamora MD LAB BLOOD ORDERABLES Final Re sult [facility] ([place]) 1 [facility] [place] [address] * Blood culture Blood (02/20/2024 12:03 PM TANK HOUSE SUPERVISOR) Report Final Report: No growth Comment:Testing performed by : [facility], 1 [facility], [place]., [address] Blood 02/20/2024 12:0 3 PM TANK HOUSE SUPERVISOR 02/20/2024 2:04 PM TANK HOUSE SUPERVISOR Narrative [facility] ([place]) - 02/24/2024 4:00 PM TANK HOUSE SUPERVISOR From a different site than #1. Collection->Peripheral 1. ?Blood cultures are incubated for 4 days on a continuously monitored blood culture system. The first report of a negative culture is issued within 24 hours of receipt of the specimen in the laboratory. 2. ?Positive culture results are reported as soon as they are detected. 3. ?The most important factor for detection of microbes in the setting of bloodstream infection is the volume of blood submitted for culture. Failure to collect an optimal blood volume can result in false negative blood cultures. 4. ? For pediatric patients, the recommended blood volume to collect follows a weight based strategy. See the electronic test catalog for collection instructions. 5. ?For positive blood cultures, a rapid molecular test may be performed for organism identification using the [employer] ePlex blood culture identification panel for gram positive (BCID-GP) and gram negative (BCID-GN) organisms. This nucleic acid amplification test detects microbial DNA in positive blood culture broth. This assay has been cleared by the [place] Food and Drug Administration and its performance characteristics have been verified by the [facility] Microbiology [facility]. For questions about this culture, contact the Microbiology Laboratory at [phone]. Interpretive data was last revised on 24. Dyan Garnett MD LAB MICROBIOLOGY - GENERAL [place] Final Result [facility]) 1 [facility] Department [place] [address] * Blood culture Blood (02/20/2024 11:44 AM TANK HOUSE SUPERVISOR) Report Final Report: No growth Comment:Testing performed by : [facility], 1 [facility] [place]., [address] Blood 02/20/2024 11:4 4 AM TANK HOUSE SUPERVISOR 02/20/2024 2:04 PM TANK HOUSE SUPERVISOR Narrative [facility] ([place]) - 02/24/2024 4:00 PM TANK HOUSE SUPERVISOR Collection->Peripheral 1. ?Blood cultures are incubated for 4 days on a continuously monitored blood culture system. The first report of a negative culture is issued within 24 hours of receipt of the specimen in the laboratory. 2. ?Positive culture results are reported as soon as they are detected. 3. ?The most important factor for detection of microbes in the setting of bloodstream infection is the volume of blood submitted for culture. Failure to collect an optimal blood volume can result in false negative blood cultures. 4. ? For pediatric patients, the recommended blood volume to collect follows a weight based strategy. See the electronic test catalog for collection instructions. 5. ?For positive blood cultures, a rapid molecular test may be performed for organism identification using the [employer] ePlex blood culture identification panel for gram positive (BCID-GP) and gram negative (BCID-GN) organisms. This nucleic acid amplification test detects microbial DNA in positive blood culture broth. This assay has been cleared by the [place] Food and Drug Administration and its performance characteristics have been verified by the [facility]. For questions about this culture, contact the Microbiology Laboratory at [phone]. Interpretive data was last revised on 24. us Dyan Garnett MD LAB MICROBIOLOGY - GENERAL [place] Final Result [facility] [place]) 5 [facility] Department [place] [address] * eGFR (02/20/2024 4:25 AM TANK HOUSE SUPERVISOR) eGFR 62 >=60 mL/min/1. 73 m2 Comment: Interpretive Data Reference Interval Normal ?>/= 90 mL/min/1.73m2 Mildly decreased* ? 60 - 89 mL/min/1.73m2 Mildly to moderately decreased ?45 - 59 mL/min/1.73m2 Moderately to severely decreased ??30 - 44 mL/min/1.73m2 Severely decreased ?15 - 29 mL/min/1.73m2 Kidney Failure ?< 15 ??mL/min/1.73m2 *Relative to young adult level Estimated glomerular filtration rate is determined by the 2020 CKD-EPI equation recommended by the National Kidney Foundation (A Unifying Approach to GFR Estimation: Recommendations of the NKF-ASK Task Force on Reassessing the Inclusion of Race in Diagnosing Kidney Disease, JASN 2020). The CKD-EPI equation should not be used for patients with unstable renal function and has not been validated in children and those over 70. Current interpretive data was last reviewed 2021. Blood 02/20/2024 4:25 AM TANK HOUSE SUPERVISOR 02/20/2024 4:58 AM TANK HOUSE SUPERVISOR us Wilver Gonzales MD LAB BLOOD ORDERABLES Fi nal Result [facility] ([place]) 1 [facility] Department [place] [address] * (ABNORMAL) Differential, auto (02/20/2024 4:25 AM TANK HOUSE SUPERVISOR) Neutrophil abs 9.2(H) 1.5 - 6.5 K/cumm Imm gran abs 0.1 0.0 - 0.1 K/cumm [facility] ([place]) Lymphocyte abs 3.1 0.8 - 3.3 K/cumm [facility] ([place]) Monocyte abs 1.2(H) 0.2 - 0.8 K/cumm [facility] ([place]) Eosinophil abs 0.1 0.0 - 0.5 K/cumm [facility] ([place]) Basophil abs 0.0 0.0 - 0.1 K/cumm [facility] ([place]) Neutrophil pct 67.3 % [facility] ([place]) Comment: Interpretive Data Percent cell count reference ranges are not reported, since discordance with absolute values may lead to misinterpretation of CBC data. Current Interpretive Data was last revised on 2017. Imm gran pct 0.7 % [facility] ([place]) Comment: Interpretive Data Percent cell count reference ranges are not reported, since discordance with absolute values may lead to misinterpretation of CBC data. Current Interpretive Data was last revised on 2017. Lymphocyte pct 22.5 % [facility] ([place]) Comment: Interpretive Data Percent cell count reference ranges are not reported, since discordance with absolute values may lead to misinterpretation of CBC data. Current Interpretive Data was last revised on 2017. Monocyte pct 9.0 % [facility] ([place]) Comment: Interpretive Data Percent cell count reference ranges are not reported, since discordance with absolute values may lead to misinterpretation of CBC data. Current Interpretive Data was last revised on 2017. Eosinophil pct 0.4 % [facility] ([place]) Comment: Interpretive Data Percent cell count reference ranges are not reported, since discordance with absolute values may lead to misinterpretation of CBC data. Current Interpretive Data was last revised on 2017. Basophil pct 0.1 % [facility] ([place]) Comment: Interpretive Data Percent cell count reference ranges are not reported, since discordance with absolute values may lead to misinterpretation of CBC data. Current Interpretive Data was last revised on 2017. Blood 02/20/2024 4:25 AM TANK HOUSE SUPERVISOR 02/20/2024 4:58 AM TANK HOUSE SUPERVISOR us Wilver Gonzales MD LAB BLOOD ORDERABLES Fi nal Result [facility] ([place]) 1 [facility] Department [place] [address] * (ABNORMAL) CBC with auto differential (02/20/2024 4:25 AM TANK HOUSE SUPERVISOR) WBC 13.7(H) 3.8 - 9.9 K/cumm Hgb 9.7(L) 11.9 - 15.5 g/dL [facility] ([place]) Hct 31.6(L) 35.6 - 45.5 % [facility] ([place]) Plt 343 150 - 400 K/cumm [facility] ([place]) MPV 9.9 9.1 - 12.3 fL [facility] ([place]) RBC 3.66(L) 3.90 - 5.20 M/cumm [facility] ([place]) MCV 86.3 81.3 - 96.4 fL [facility] ([place]) MCH 26.5(L) 27.1 - 33.3 pg [facility] ([place]) MCHC 30.7(L) 32.3 - 35.7 g/dL [facility] RDW CV 16.6(H) 11.1 - 14.9 % [facility] RDW SD 52.6(H) 35.7 - 48.1 fL [facility] NRBC abs 0.00 0.00 - 0.01 K/cumm [facility] Blood 02/20/2024 4:25 AM [employer] HOUSE SUPERVISOR 02/20/2024 4:58 AM TANK HOUSE SUPERVISOR Wilver Gonzales MD LAB BLOOD ORDERABLES Fi nal Result Performing Organization Address City/[facility] Co de Phone Number [facility] ([place]) 1 [facility] [place] [address] * Magnesium (02/20/2024 4:25 AM TANK HOUSE SUPERVISOR) Magnesium 1.9 1.4 - 2.5 mg/dL Blood 02/20/2024 4:25 AM TANK HOUSE SUPERVISOR 02/20/2024 4:58 AM TANK HOUSE SUPERVISOR Wilver Gonzales MD LAB BLOOD ORDERABLES Fi nal Result Performing Organization Address [facility] de Phone Number [facility] ([place] 1 [facility] [place] [place] [address] * Lipid panel (02/20/2024 4:25 AM TANK HOUSE SUPERVISOR) Cholesterol 159 30 - 199 mg/dL Comment: Interpretive Data Ages < or = 19 years ??Acceptable: ? <170 mg/dL ??Borderline high: ??170-199 mg/dL ??High: ? >or= 200 mg/dL Ages > or = 20 years ??Desirable: ?<200 mg/dL ??Borderline high: ??200-239 mg/dL ??High: ? >or= 240 mg/dL Literature References: 1. Expert Panel on Integrated Guidelines for Cardiovascular Health and Risk Reduction in Children and Adolescents. Pediatrics 2011;128:S213 2. NCEP Expert Panel. Circulation 2004;110:227 Current Interpretive Data was last revised on 2017. Triglycerides 89 <=149 mg/dL [facility] ([place]) Comment: Interpretive Data Ages < or = 9 years ??Acceptable: ? <75 mg/dL ??Borderline high: ??75-99 mg/dL ??High: ? >or= 100 mg/dL Ages 10 to 20 years ??Acceptable: ? <90 mg/dL ??Borderline high: ??90-129 mg/dL ??High: ? >or= 130 mg/dL Ages > or = 20 years ??Desirable: ?<150 mg/dL ??Borderline high: ??150-199 mg/dL ??High: ? 200-499 mg/dL ?Very high: ?? >or= 499 mg/dL Literature References: 1. Expert Panel on Integrated Guidelines for Cardiovascular Health and Risk Reduction in Children and Adolescents. Pediatrics 2011;128:S213 2. NCEP Expert Panel. Circulation 2004;110:227 Current Interpretive Data was last revised on 2017. HDL 57 >=40 mg/dL [facility] [place] ([place]) Comment: Interpretive Data Ages < or = 19 years ??Acceptable: ? >45 mg/dL ??Borderline low: ?? 40-45 mg/dL ??Low: ? <40 mg/dL Ages > or = 20 years ??Desirable: ?>or= 60 mg/dL ??Low: ? <40 mg/dL Literature References: 1. Expert Panel on Integrated Guidelines for Cardiovascular Health and Risk Reduction in Children and Adolescents. Pediatrics 2011;128:S213 2. NCEP Expert Panel. Circulation 2004;110:227 Current Interpretive Data was last revised on 2017. LDL, calculated 85 <=129 mg/dL [facility] ([place]) Comment: Interpretive Data Ages < or = 19 years ??Acceptable: ? <110 mg/dL ??Borderline high: ??110-129 mg/dL ??High: ?>or= 130 mg/dL Ages > or = 20 years ??Optimal: ? <100 mg/dL ??Near optimal: ?100-129 mg/dL ??Borderline high: ?? 130-159 mg/dL ??High: ?>160 mg/dL Calculated using the Dennis LDL-C estimating equation. This equation was implemented on 2023. Prior to this date LDL-C was estimated using the Friedewald equation. Literature References: 1. Expert Panel on Integrated Guidelines for Cardiovascular Health and Risk Reduction in Children and Adolescents. Pediatrics 2011;128:S213 2. NCEP Expert Panel. Circulation 2004;110:227 3. Dennis Smith et al. ENOCH Cardiol. 2020 July 14;5(5):540-548. doi: 10.1001/jamacardio.2020.0013 Current Interpretive Data was last revised on 2023. Non-HDL Cholesterol 102 mg/dL [facility] ([place]) Comment: Interpretive Data Ages < or = 19 years ??Acceptable: ?<120 mg/dL ??Borderline high: ??120-144 mg/dL ??High: ?>145 mg/dL Ages > or = 20 years ??When triglycerides are >200 mg/dL, Non-HDL cholesterol is a secondary target of ? therapy with treatment goals that are 30 mg/dL greater than the LDL cholesterol target. ? Literature References: 1. Expert Panel on Integrated Guidelines for Cardiovascular Health and Risk Reduction in Children and Adolescents. Pediatrics 2011;128:S213 2. NCEP Expert Panel. Circulation 2004;110:227 Current Interpretive Data was last revised on 2017. Chol/HDL ratio 3 [facility] ([place]) Blood 02/20/2024 4:25 AM [employer] HOUSE SUPERVISOR 02/20/2024 10:07 AM TANK HOUSE SUPERVISOR Narrative [facility] ([place]) - 02/20/2024 10:49 AM [employer] HOUSE SUPERVISOR May run on this morning blood. ?? If not possible, do it tomorrow morning at 6. us Bernabe Zamora MD LAB BLOOD ORDERABLES Final Re sult [facility] ([place]) 1 [facility] [place] [address] * (ABNORMAL) Comprehensive metabolic panel (02/20/2024 4:25 AM TANK HOUSE SUPERVISOR) Sodium 144 135 - 145 mmol/L Potassium, pl 3.2(L) 3.3 - 4.9 mmol/L [facility] ([place]) Chloride 107 97 - 110 mmol/L [facility] ([place]) CO2 24 22 - 32 mmol/L [facility] ([place]) Anion gap 13 2 - 15 mmol/L [facility] ([place]) BUN 38(H) 6 - 25 mg/dL [facility] ([place]) Creatinine 0.98 0.60 - 1.10 mg/dL [facility] ([place]) Glucose 115 70 - 199 mg/dL [facility] ([place]) Comment: Interpretive Data Fasting glucose >/= 126 mg/dl is diagnostic for diabetes. ?? Fasting is defined as no caloric intake for at least 8 hours. Fasting glucose between 100 mg/dl to 125 mg/dl is diagnostic of prediabetes. In a patient with classic symptoms of hyperglycemia or hyperglycemic crisis, a random glucose >/= 200 mg/dl is diagnostic for diabetes. In the absence of unequivocal hyperglycemia, results should be confirmed by repeat testing. The classification and Diagnosis of Diabetes Diabetes Care 2021; 46: S19-S40. Current interpretive data was last revised 2022. Calcium 8.7 8.5 - 10.3 mg/dL [facility] ([place]) Bilirubin, total 0.5 0.1 - 1.2 mg/dL [facility] ([place]) Protein, pl 5.8(L) 6.5 - 8.5 g/dL [facility] ([place]) Albumin 3.4(L) 3.5 - 5.0 g/dL [facility] ([place]) Alk phos 69 40 - 130 Units/L [facility] ([place]) ALT 18 7 - 45 Units/L [facility] ([place]) AST 18 10 - 45 Units/L [facility] ([place]) Blood 02/20/2024 4:25 AM T[employer] HOUSE SUPERVISOR 02/20/2024 4:58 AM [employer] HOUSE SUPERVISOR us Wilver Gonzales MD LAB BLOOD ORDERABLES Fi nal Result [facility] ([place]) 1 [facility] [place] [employer] [place] [address] * (ABNORMAL) Sepsis Lactate w/ Reflex (02/19/2024 10:56 PM T[employer]SE SUPERVISOR) Sepsis Lactate 3.6(H) 0.7 - 2.0 mmol/L Blood 02/19/2024 10:5 6 PM T[employer] HOUSE SUPERVISOR 02/19/2024 10:59 PM [employer]ANK HOUSE SUPERVISOR us Ariel Oreilly MD LAB BLOOD ORDERABLES Final Result [facility] ([place]) 1 [facility] [place] [place] [address] * (ABNORMAL) Sepsis Lactate w/ Reflex (02/19/2024 7:44 PM T[employer] HOUSE SUPERVISOR) Sepsis Lactate 4.0(C) 0.7 - 2.0 mmol/L Comment:Critical result call ed to and read back by Angela golden ([email or web address]) on 02/19/2024 19:53:39 TANK HOUSE SUPERVISOR to Rosita Moore. Blood 02/19/2024 7:44 PM TANK HOUSE SUPERVISOR 02/19/2024 7:48 PM TANK HOUSE SUPERVISOR Ariel Oreilly MD LAB BLOOD ORDERABLES Final Result Performing Organization Address City/[facility]/ZIP Co de Phone Number [facility] ([place]) 1 [facility] [place] [address] * (ABNORMAL) eGFR (02/19/2024 7:44 PM TANK HOUSE SUPERVISOR) eGFR 49(L) >=60 mL/min/1. 73 m2 Comment: Interpretive Data Reference Interval Normal ?>/= 90 mL/min/1.73m2 Mildly decreased* ? 60 - 89 mL/min/1.73m2 Mildly to moderately decreased ?45 - 59 mL/min/1.73m2 Moderately to severely decreased ??30 - 44 mL/min/1.73m2 Severely decreased ?15 - 29 mL/min/1.73m2 Kidney Failure ?< 15 ??mL/min/1.73m2 *Relative to young adult level Estimated glomerular filtration rate is determined by the 2020 CKD-EPI equation recommended by the National Kidney Foundation (A Unifying Approach to GFR Estimation: Recommendations of the NKF-ASK Task Force on Reassessing the Inclusion of Race in Diagnosing Kidney Disease, JASN 202). The CKD-EPI equation should not be used for patients with unstable renal function and has not been validated in children and those over 70. Current interpretive data was last reviewed 2021. Blood 02/19/2024 7:44 PM TANK HOUSE SUPERVISOR 02/19/2024 7:48 PM TANK HOUSE SUPERVISOR us Ariel Oreilly MD LAB BLOOD ORDERABLES Final Result [facility] ([place]) 1 [facility] [place] [address] * (ABNORMAL) Renal function panel (02/19/2024 7:44 PM TANK HOUSE SUPERVISOR) Sodium 142 135 - 145 mmol/L Potassium, pl 3.6 3.3 - 4.9 mmol/L [facility] ([place]) Chloride 99 97 - 110 mmol/L [facility] ([place]) CO2 27 22 - 32 mmol/L [facility] ([place]) Anion gap 16(H) 2 - 15 mmol/L [facility] ([place]) BUN 35(H) 6 - 25 mg/dL [facility] ([place]) Creatinine 1.21(H) 0.60 - 1.10 mg/dL [facility] ([place]) Glucose 186 70 - 199 mg/dL [facility] Comment: Interpretive Data Fasting glucose >/= 126 mg/dl is diagnostic for diabetes. ?? Fasting is defined as no caloric intake for at least 8 hours. Fasting glucose between 100 mg/dl to 125 mg/dl is diagnostic of prediabetes. In a patient with classic symptoms of hyperglycemia or hyperglycemic crisis, a random glucose >/= 200 mg/dl is diagnostic for diabetes. In the absence of unequivocal hyperglycemia, results should be confirmed by repeat testing. The classification and Diagnosis of Diabetes Diabetes Care 2021; 46: S19-S40. Current interpretive data was last revised 2022. Calcium 9.6 8.5 - 10.3 mg/dL [facility] ([place]) Phosphorus, pl 2.9 2.3 - 4.5 mg/dL [facility] ([place]) Albumin 4.0 3.5 - 5.0 g/dL [facility] ([place]) Blood 02/19/2024 7:44 PM TANK HOUSE SUPERVISOR 02/19/2024 7:48 PM TANK HOUSE SUPERVISOR us Ariel Oreilly MD LAB BLOOD ORDERABLES Final Result [facility] ([place]) 1 [facility] Department [place] [address] * Troponin T high-sensitivity 4-hour (02/19/2024 2:56 PM TANK HOUSE SUPERVISOR) Trop T hs 13 <=14 ng/L Comment: Interpretive Data For further hscTnT resources including the diagnostic algorithm and an aid in interpretation, copy and paste this link: https://nrl.testcatalog.org/show/hsTrop Current Interpretive Data last revised 2020. Trop T hs delta -2 ng/L [facility] ([place]) Trop T hs interp Insignificant [facility] ([place]) Blood 02/19/2024 2:56 PM TANK HOUSE SUPERVISOR 02/19/2024 2:59 PM TANK HOUSE SUPERVISOR Ariel Oreilly MD LAB BLOOD ORDERABLES Final Result Performing Organization Address City/[facility]/ZIP Co de Phone Number [facility] ([place]) 1 [place] [address] * (ABNORMAL) Sepsis Lactate w/ Reflex (02/19/2024 2:56 PM TANK HOUSE SUPERVISOR) Sepsis Lactate 3.0(H) 0.7 - 2.0 mmol/L Blood 02/19/2024 2:56 PM TANK HOUSE SUPERVISOR 02/19/2024 2:59 PM TANK HOUSE SUPERVISOR Ariel Oreilly MD LAB BLOOD ORDERABLES Final Result Performing Organization Address [facility] Co de Phone Number [facility] ([place]) 1 [place] [address] * Urinalysis reflex to microscopic and culture Urine, clean voided (02/19/2024 12:02 PM TANK HOUSE SUPERVISOR) Color, ur Yellow Yellow Clarity, ur Clear Clear [facility] ([place]) Specific gravity, ur 1.013 1.003 - 1.030 [facility] ([place]) pH, urine 6.5 [facility] ([place]) Comment: Interpretive Data ? Urine pH is affected by diet, medications, systemic acid-base disturbances, and renal tubular function. ??pH may affect urinary stone formation. ??For example, urine pH below 6.0 may help reduce the tendency for calcium phosphate stones and pH greater than 6.0 may reduce the tendency for uric acid stone formation. Source: [facility] [employer] Current Interpretive Data was last revised on 2017 Protein, ur ql Negative Negative [facility] ([place]) Glucose, ur ql Negative Negative [facility] ([place]) Ketones, ur Negative Negative [facility] ([place]) Bilirubin, ur Negative Negative [facility] ([place]) Blood, ur Negative Negative [facility] ([place]) Urobilinogen, ur <2.0 <2.0 mg/dL [facility] ([place]) Nitrite, ur Negative Negative [facility] ([place]) Leukocyte esterase, ur Negative Negative [facility] ([place]) UA reflex comment Reflex conditions for microscopic UA and culture not met. [facility] ([place]) Urine, clean voided 02/19/2024 12:02 PM TANK HOUSE SUPERVISOR 02/19/2024 12:06 PM TANK HOUSE SUPERVISOR us Ariel Oreilly MD LAB MICROBIOLOGY - GENERAL ORDERABLES Final Result [facility] ([place]) 1 [facility] [place] [address] * CT Cervical Spine WO Contrast (02/19/2024 11:55 AM TANK HOUSE SUPERVISOR) Anatomical Region Laterality Modality Spine N/A Computed Tomogra phy 02/19/2024 12:0 7 PM TANK HOUSE SUPERVISOR Narrative 02/19/2024 12:26 PM TANK HOUSE SUPERVISOR EXAM DESCRIPTION: CT HEAD WO CONTRAST; CT CERVICAL SPINE WO CONTRAST REASON FOR STUDY: fall on eliquis, large knot on occiput ?? Fall today hit right posterior head, large swelling on back of head. Pt is on blood thinners. ?? ; Neck pain, acute, no red flags, fall on eliquis ?? Fall today hit right posterior head, large swelling on back of head. Pt is on blood thinners. ? TECHNIQUE: Axial images acquired through the brain without intravenous contrast. Axial images through the cervical spine with sagittal and coronal reformatted images. Images stored on PACS. ??Automated exposure control was used as a dose optimization technique for this examination. COMPARISON: 11/07/[address] and cervical spine CT FINDINGS: HEAD BRAIN: Evaluation is limited near the vertex due to motion artifact. ??Artifact in the posterior fossa is improved on the repeat attempts. ?? No hemorrhage, edema or mass effect. ??There is a new area of encephalomalacia in the right parietal lobe since 2021. ??No definite CT evidence for acute infarct.. ??Mild cerebral volume loss is asymmetrical to the right cerebral hemisphere. ??Mild periventricular white matter hypoattenuation is likely chronic microvascular ischemia. ??Ventricular size is unchanged.. ??Intracranial athero sclerotic calcifications are present EXTRA-AXIAL SPACES: ?? No fluid collections. No masses. CALVARIUM: ??No fracture. SINUSES/MASTOIDS: ??No fluid or mucosal thickening. ORBITS: ??No significant abnormality. CERVICAL SPINE There is mild motion artifact throughout the cervical spine. ??Within this limitation: ALIGNMENT: ??Unchanged mild C6 on C7 and C7 on T1 anterolisthesis . ??There is dextrocurvature of the cervical spine VERTEBRAE: ??Vertebral body heights are unchanged and no acute fracture or aggressive bone lesion is seen. ??No paravertebral soft tissue swelling. DISCS: ??Unchanged mild multilevel degenerative disc disease. HARDWARE: ??None in the spine. INDIVIDUAL DISC LEVELS: ?? There is severe multilevel facet osteoarthritis. ?? There is multilevel uncovertebral osteoarthritis. ??There is up to moderate osseous neural foraminal stenosis on the right at C3-C4. ??No high-grade osseous spinal canal stenosis. ??The degree of non osseous stenosis would be better assessed by MRI, if clinically warranted UPPER THORACIC: ??Incompletely imaged. No significant osseous spinal stenosis or osseous neural foraminal stenosis. LUNG APICES: ??Mild right apical pleural-parenchymal scarring. NECK SOFT TISSUES: ?? There are athero sclerotic calcifications at the carotid bifurcations. OTHER: ??Moderate-sized right parieto-occipital scalp hematoma IMPRESSION: Motion artifact degrades evaluation near the vertex. ??Within this limitation, no acute intracranial findings. Mildly motion degraded evaluation throughout cervical spine. ??Within this limitation, no gross evidence of acute fracture in the cervical spine. Moderate-sized right parieto-occipital scalp hematoma. Area of encephalomalacia in the right parietal lobe, new since 11/07/2021. THIS IS AN ELECTRONICALLY VERIFIED FINAL REPORT 02/19/2024 12:26 PM - Electronically signed by ??Manfred Smith.D. MZ: GANESH D: ??02/19/2024 12:24 PM T: ??02/19/2024 12:26 PM Report ID: [id number] Reading Location: ??[id number] Procedure Note Manfred Hernandez MD - 02/19/2024 EXAM DESCRIPTION: CT HEAD WO CONTRAST; CT CERVICAL SPINE WO CONTRAST REASON FOR STUDY: fall on eliquis, large knot on occiput Fall today hit right posterior head, large swelling on back of head. Pt vega blood thinners. ; Neck pain, acute, no red flags, fall on eliquis Fall today hit right posterior head, large swelling on back of head. Pt vega blood thinners. TECHNIQUE: Axial images acquired through the brain without intravenous contrast. Axial images through the cervical spine with sagittal andcoronal reformatted images. Images stored on PACS. Automated exposure control was used as a dose optimization technique for this examination. COMPARISON: 11/07/[address] and cervical spine CT FINDINGS: HEAD BRAIN: Evaluation is limited near the vertex due to motion artifact.Artifact in the posterior fossa is improved on the repeat attempts. Nohemorrhage, edema or mass effect. There is a new area of encephalomalacia in theright parietal lobe since 2021. No definite CT evidence for acute infarct..Mild cerebral volume loss is asymmetrical to the right cerebral hemisphere.Mild periventricular white matter hypoattenuation is likely chronicmicrovascular ischemia. Ventricular size is unchanged.. Intracranial athero sclerotic calcifications are present EXTRA-AXIAL SPACES: No fluid collections. No masses. CALVARIUM: No fracture. SINUSES/MASTOIDS: No fluid or mucosal thickening. ORBITS: No significant abnormality. CERVICAL SPINE There is mild motion artifact throughout the cervical spine. Within this limitation: ALIGNMENT: Unchanged mild C6 on C7 and C7 on T1 anterolisthesis . Thereis dextrocurvature of the cervical spine VERTEBRAE: Vertebral body heights are unchanged and no acute fracture or aggressive bone lesion is seen. No paravertebral soft tissue swelling. DISCS: Unchanged mild multilevel degenerative disc disease. HARDWARE: None in the spine. INDIVIDUAL DISC LEVELS: There is severe multilevel facet osteoarthritis. There is multilevel uncovertebral osteoarthritis. There is up to moderate osseous neural foraminal stenosis on the right at C3-C4. No high-grade osseous spinal canal stenosis. The degree of non osseous stenosis wouldbe better assessed by MRI, if clinically warranted UPPER THORACIC: Incompletely imaged. No significant osseous spinalstenosis or osseous neural foraminal stenosis. LUNG APICES: Mild right apical pleural-parenchymal scarring. NECK SOFT TISSUES: There are athero sclerotic calcifications at thecarotid bifurcations. OTHER: Moderate-sized right parieto-occipital scalp hematoma IMPRESSION: Motion artifact degrades evaluation near the vertex. Within thislimitation, no acute intracranial findings. Mildly motion degraded evaluation throughout cervical spine. Within this limitation, no gross evidence of acute fracture in the cervical spine. Moderate-sized right parieto-occipital scalp hematoma. Area of encephalomalacia in the right parietal lobe, new since11/07/2021. THIS IS AN ELECTRONICALLY VERIFIED FINAL REPORT 02/19/2024 12:26 PM - Electronically signed by Manfred Hernandez M.D. MZ: GANESH Report ID: [id number] Reading Location: [id number] us Ariel Oreilly MD IMG CT PROCEDURES Final Res ult * CT Head WO Contrast (02/19/2024 11:55 AM TANK HOUSE SUPERVISOR) Anatomical Region Laterality Modality Head and Neck N/A Computed Tomogra phy 02/19/2024 12:0 7 PM TANK HOUSE SUPERVISOR Narrative 02/19/2024 12:26 PM TANK HOUSE SUPERVISOR EXAM DESCRIPTION: CT HEAD WO CONTRAST; CT CERVICAL SPINE WO CONTRAST REASON FOR STUDY: fall on eliquis, large knot on occiput ?? Fall today hit right posterior head, large swelling on back of head. Pt is on blood thinners. ?? ; Neck pain, acute, no red flags, fall on eliquis ?? Fall today hit right posterior head, large swelling on back of head. Pt is on blood thinners. ? TECHNIQUE: Axial images acquired through the brain without intravenous contrast. Axial images through the cervical spine with sagittal and coronal reformatted images. Images stored on PACS. ??Automated exposure control was used as a dose optimization technique for this examination. COMPARISON: 11/07/[address] and cervical spine CT FINDINGS: HEAD BRAIN: Evaluation is limited near the vertex due to motion artifact. ??Artifact in the posterior fossa is improved on the repeat attempts. ?? No hemorrhage, edema or mass effect. ??There is a new area of encephalomalacia in the right parietal lobe since 2021. ??No definite CT evidence for acute infarct.. ??Mild cerebral volume loss is asymmetrical to the right cerebral hemisphere. ??Mild periventricular white matter hypoattenuation is likely chronic microvascular ischemia. ??Ventricular size is unchanged.. ??Intracranial athero sclerotic calcifications are present EXTRA-AXIAL SPACES: ?? No fluid collections. No masses. CALVARIUM: ??No fracture. SINUSES/MASTOIDS: ??No fluid or mucosal thickening. ORBITS: ??No significant abnormality. CERVICAL SPINE There is mild motion artifact throughout the cervical spine. ??Within this limitation: ALIGNMENT: ??Unchanged mild C6 on C7 and C7 on T1 anterolisthesis . ??There is dextrocurvature of the cervical spine VERTEBRAE: ??Vertebral body heights are unchanged and no acute fracture or aggressive bone lesion is seen. ??No paravertebral soft tissue swelling. DISCS: ??Unchanged mild multilevel degenerative disc disease. HARDWARE: ??None in the spine. INDIVIDUAL DISC LEVELS: ?? There is severe multilevel facet osteoarthritis. ?? There is multilevel uncovertebral osteoarthritis. ??There is up to moderate osseous neural foraminal stenosis on the right at C3-C4. ??No high-grade osseous spinal canal stenosis. ??The degree of non osseous stenosis would be better assessed by MRI, if clinically warranted UPPER THORACIC: ??Incompletely imaged. No significant osseous spinal stenosis or osseous neural foraminal stenosis. LUNG APICES: ??Mild right apical pleural-parenchymal scarring. NECK SOFT TISSUES: ?? There are athero sclerotic calcifications at the carotid bifurcations. OTHER: ??Moderate-sized right parieto-occipital scalp hematoma IMPRESSION: Motion artifact degrades evaluation near the vertex. ??Within this limitation, no acute intracranial findings. Mildly motion degraded evaluation throughout cervical spine. ??Within this limitation, no gross evidence of acute fracture in the cervical spine. Moderate-sized right parieto-occipital scalp hematoma. Area of encephalomalacia in the right parietal lobe, new since 11/07/2021. THIS IS AN ELECTRONICALLY VERIFIED FINAL REPORT 02/19/2024 12:26 PM - Electronically signed by ??Manfred Hernandez M.D. MZ: MZ D: ??02/19/2024 12:24 PM T: ??02/19/2024 12:26 PM Report ID: [id number] Reading Location: ??[id number] Procedure Note Manfred Hernandez MD - 02/19/2024 EXAM DESCRIPTION: CT HEAD WO CONTRAST; CT CERVICAL SPINE WO CONTRAST REASON FOR STUDY: fall on eliquis, large knot on occiput Fall today hit right posterior head, large swelling on back of head. Pt vega blood thinners. ; Neck pain, acute, no red flags, fall on eliquis Fall today hit right posterior head, large swelling on back of head. Pt vega blood thinners. TECHNIQUE: Axial images acquired through the brain without intravenous contrast. Axial images through the cervical spine with sagittal andcoronal reformatted images. Images stored on PACS. Automated exposure control was used as a dose optimization technique for this examination. COMPARISON: 11/07/[address] and cervical spine CT FINDINGS: HEAD BRAIN: Evaluation is limited near the vertex due to motion artifact.Artifact in the posterior fossa is improved on the repeat attempts. Nohemorrhage, edema or mass effect. There is a new area of encephalomalacia in theright parietal lobe since 2021. No definite CT evidence for acute infarct..Mild cerebral volume loss is asymmetrical to the right cerebral hemisphere.Mild periventricular white matter hypoattenuation is likely chronicmicrovascular ischemia. Ventricular size is unchanged.. Intracranial athero sclerotic calcifications are present EXTRA-AXIAL SPACES: No fluid collections. No masses. CALVARIUM: No fracture. SINUSES/MASTOIDS: No fluid or mucosal thickening. ORBITS: No significant abnormality. CERVICAL SPINE There is mild motion artifact throughout the cervical spine. Within this limitation: ALIGNMENT: Unchanged mild C6 on C7 and C7 on T1 anterolisthesis . Thereis dextrocurvature of the cervical spine VERTEBRAE: Vertebral body heights are unchanged and no acute fracture or aggressive bone lesion is seen. No paravertebral soft tissue swelling. DISCS: Unchanged mild multilevel degenerative disc disease. HARDWARE: None in the spine. INDIVIDUAL DISC LEVELS: There is severe multilevel facet osteoarthritis. There is multilevel uncovertebral osteoarthritis. There is up to moderate osseous neural foraminal stenosis on the right at C3-C4. No high-grade osseous spinal canal stenosis. The degree of non osseous stenosis wouldbe better assessed by MRI, if clinically warranted UPPER THORACIC: Incompletely imaged. No significant osseous spinalstenosis or osseous neural foraminal stenosis. LUNG APICES: Mild right apical pleural-parenchymal scarring. NECK SOFT TISSUES: There are athero sclerotic calcifications at thecarotid bifurcations. OTHER: Moderate-sized right parieto-occipital scalp hematoma IMPRESSION: Motion artifact degrades evaluation near the vertex. Within thislimitation, no acute intracranial findings. Mildly motion degraded evaluation throughout cervical spine. Within this limitation, no gross evidence of acute fracture in the cervical spine. Moderate-sized right parieto-occipital scalp hematoma. Area of encephalomalacia in the right parietal lobe, new since11/07/2021. THIS IS AN ELECTRONICALLY VERIFIED FINAL REPORT 02/19/2024 12:26 PM - Electronically signed by Manfred Hernandez M.D. MZ: GANESH Report ID: [id number] Reading Location: [id number] Ariel Oreilly MD IMG CT PROCEDURES Final Res ult * XR Chest 1 Vw Portable (02/19/2024 11:25 AM [employer] HOUSE SUPERVISOR) Anatomical Region Laterality Modality Body, Chest N/A Computed Radiogr aphy 02/19/2024 11:5 3 AM [employer] HOUSE SUPERVISOR Narrative 02/19/2024 11:54 AM [employer] HOUSE SUPERVISOR EXAM DESCRIPTION: XR CHEST 1 VIEW REASON FOR STUDY: accidental fall ?? Pt to ER via [facility] from home after tripping in the bathroom and hitting her head on a cabinet. NO LOC, visual changes. Eliquis use for a-fib ? TECHNIQUE: 1 ??radiographic view(s) of the chest. COMPARISON: 02/10/2024 FINDINGS: LUNGS: ??No focal consolidation, pleural effusion, or pneumothorax. ?? Left upper lobe calcified granuloma. HEART/MEDIASTINUM: ??Cardiac silhouette normal in size. Mediastinal and hilar contours appear normal. LINES/TUBES: ??None. BONES: ??No acute osseous abnormality. IMPRESSION: No acute cardiopulmonary abnormality. THIS IS AN ELECTRONICALLY VERIFIED FINAL REPORT 02/19/2024 11:54 AM - Electronically signed by ??Felix Badillo M.D. KR: LAURA D: ??02/19/2024 11:54 AM T: ??02/19/2024 11:54 AM Report ID: [id number] Reading Location: ??[id number] Procedure Note Felix Badillo MD - 02/19/2024 EXAM DESCRIPTION: XR CHEST 1 VIEW REASON FOR STUDY: accidental fall Pt to ER via [facility] from home after tripping in the bathroom and hittingher head on a cabinet. NO LOC, visual changes. Eliquis use for a-fib TECHNIQUE: 1 radiographic view(s) of the chest. COMPARISON: 02/10/2024 FINDINGS: LUNGS: No focal consolidation, pleural effusion, or pneumothorax. Left upper lobe calcified granuloma. HEART/MEDIASTINUM: Cardiac silhouette normal in size. Mediastinal andhilar contours appear normal. LINES/TUBES: None. BONES: No acute osseous abnormality. IMPRESSION: No acute cardiopulmonary abnormality. THIS IS AN ELECTRONICALLY VERIFIED FINAL REPORT 02/19/2024 11:54 AM - Electronically signed by Felix Badillo M.D. KR: LAURA Report ID: [id number] Reading Location: [id number] Ariel Oreilly MD IMG XR PROCEDURES Final Res ult * (ABNORMAL) Troponin T high-sensitivity series (baseline, 2hr, 4hr, 6hr) (02/19/2024 10:59 AM [employer] HOUSE SUPERVISOR) Trop T hs 15(H) <=14 ng/L Comment: Interpretive Data For further hscTnT resources including the diagnostic algorithm and an aid in interpretation, copy and paste this link: https://nrl.testcatalog.org/show/hsTrop Current Interpretive Data last revised 2020. Blood 02/19/2024 10:5 9 AM [employer] HOUSE SUPERVISOR 02/19/2024 11:10 AM [employer] HOUSE SUPERVISOR us Ariel Oreilly MD LAB BLOOD ORDERABLES Final Result Performing Organization Address City/[facility] Co de Phone Number [facility] ([place]) 1 [facility] [place] [address] * eGFR (02/19/2024 10:59 AM T[employer] HOUSE SUPERVISOR) eGFR 62 >=60 mL/min/1. 73 m2 Comment: Interpretive Data Reference Interval Normal ?>/= 90 mL/min/1.73m2 Mildly decreased* ? 60 - 89 mL/min/1.73m2 Mildly to moderately decreased ?45 - 59 mL/min/1.73m2 Moderately to severely decreased ??30 - 44 mL/min/1.73m2 Severely decreased ?15 - 29 mL/min/1.73m2 Kidney Failure ?< 15 ??mL/min/1.73m2 *Relative to young adult level Estimated glomerular filtration rate is determined by the 2020 CKD-EPI equation recommended by the National Kidney Foundation (A Unifying Approach to GFR Estimation: Recommendations of the NKF-ASK Task Force on Reassessing the Inclusion of Race in Diagnosing Kidney Disease, JASN 2020). The CKD-EPI equation should not be used for patients with unstable renal function and has not been validated in children and those over 70. Current interpretive data was last reviewed 2021. Blood 02/19/2024 10:5 9 AM TANK HOUSE SUPERVISOR 02/19/2024 11:10 AM [employer] HOUSE SUPERVISOR us Ariel Oreilly MD LAB BLOOD ORDERABLES Final Result Performing Organization Address City/[facility]/ZIP Co de Phone Number [facility] ([place]) 1 [facility] Department [place] [address] * (ABNORMAL) Differential, auto (02/19/2024 10:59 AM [employer] HOUSE SUPERVISOR) Neutrophil abs 9.5(H) 1.5 - 6.5 K/cumm Imm gran abs 0.1 0.0 - 0.1 K/cumm [facility] ([place]) Lymphocyte abs 0.7(L) 0.8 - 3.3 K/cumm [facility] ([place]) Monocyte abs 0.2 0.2 - 0.8 K/cumm [facility] ([place]) Eosinophil abs 0.0 0.0 - 0.5 K/cumm [facility] ([place]) Basophil abs 0.0 0.0 - 0.1 K/cumm [facility] ([place]) Neutrophil pct 89.7 % [facility] ([place]) Comment: Interpretive Data Percent cell count reference ranges are not reported, since discordance with absolute values may lead to misinterpretation of CBC data. Current Interpretive Data was last revised on 2017. Imm gran pct 0.9 % [facility] ([place]) Comment: Interpretive Data Percent cell count reference ranges are not reported, since discordance with absolute values may lead to misinterpretation of CBC data. Current Interpretive Data was last revised on 2017. Lymphocyte pct 7.0 % [facility] ([place]) Comment: Interpretive Data Percent cell count reference ranges are not reported, since discordance with absolute values may lead to misinterpretation of CBC data. Current Interpretive Data was last revised on 2017. Monocyte pct 2.2 % [facility] ([place]) Comment: Interpretive Data Percent cell count reference ranges are not reported, since discordance with absolute values may lead to misinterpretation of CBC data. Current Interpretive Data was last revised on 2017. Eosinophil pct 0.1 % [facility] ([place]) Comment: Interpretive Data Percent cell count reference ranges are not reported, since discordance with absolute values may lead to misinterpretation of CBC data. Current Interpretive Data was last revised on 2017. Basophil pct 0.1 % [facility] ([place]) Comment: Interpretive Data Percent cell count reference ranges are not reported, since discordance with absolute values may lead to misinterpretation of CBC data. Current Interpretive Data was last revised on 2017. Blood 02/19/2024 10:5 9 AM [employer] HOUSE SUPERVISOR 02/19/2024 11:10 AM [employer] HOUSE SUPERVISOR us Ariel Oreilly MD LAB BLOOD ORDERABLES Final Result [facility] ([place]) 1 [facility] Department [place] [address] * Pro B-type natriuretic peptide (02/19/2024 10:59 AM T[employer] HOUSE SUPERVISOR) NT-proBNP 125 <=300 pg/mL Comment: Interpretive Comments: A. Dyspnea in Acute Care Setting All Ages: ?< 300 pg/ml, acute heart failure unlikely. < 50 yrs: ?300 - 450 pg/ml, further investigation warranted. ? > 450 pg/ml, acute heart failure likely. 50 - 74 yrs: ? 300 - 900 pg/ml, further investigation warranted. ? > 900 pg/ml, acute heart failure likely . > or = 75 yrs: ? 450 - 1800 pg/ml, further investigation warranted. ? > 1800 pg/ml, acute heart failure likely. B. Non-acute Setting < 75 yrs ? < 125 pg/ml, rules out heart failure. ? > or = 125 pg/ml, further investigation warranted. > or = 75 yrs ?< 450 pg/ml, rules out heart failure. ? > or = 450 pg/ml, further investigation warranted. - Knowledge of each individual patient's NT-proBNP range may be more useful than using similar cut-points for every patient. Please note that marked elevations in NT-proBNP levels may be observed in state other than Left Ventricular Congestive Failure, including: acute coronary syndromes, right heart strain/failure (including pulmonary embolism and cor pulmonale), critical illness, renal failure, as well as advanced age. - References: 1. Tim SALOMON et.al. Eur Heart J. 2006:27:330-337. 2. Darien RW, Zahra JOLLY. J. AM Lizbeth Cardiol: Cardiovasc Imag. 2009;2: 216- 225. Interpretive Data Last Revised Date: 2017. Blood 02/19/2024 10:5 9 AM [employer] HOUSE SUPERVISOR 02/19/2024 11:10 AM [employer]ANK HOUSE SUPERVISOR Ariel Oreilly MD LAB BLOOD ORDERABLES Final Result [facility] ([place]) 1 [facility] Department [place] [address] * (ABNORMAL) CBC with auto differential (02/19/2024 10:59 AM [employer] HOUSE SUPERVISOR) WBC 10.6(H) 3.8 - 9.9 K/cumm Hgb 12.2 11.9 - 15.5 g/dL [facility] ([place]) Hct 38.8 35.6 - 45.5 % [facility] ([place]) Plt 498(H) 150 - 400 K/cumm [facility] ([place]) MPV 9.8 9.1 - 12.3 fL [facility] ([place]) RBC 4.63 3.90 - 5.20 M/cumm [facility] ([place]) MCV 83.8 81.3 - 96.4 fL [facility] ([place]) MCH 26.3(L) 27.1 - 33.3 pg [facility] ([place]) MCHC 31.4(L) 32.3 - 35.7 g/dL [facility] ([place]) RDW CV 16.2(H) 11.1 - 14.9 % [facility] ([place]) RDW SD 49.8(H) 35.7 - 48.1 fL [facility] ([place]) NRBC abs 0.00 0.00 - 0.01 K/cumm [facility] ([place]) Blood 02/19/2024 10:5 9 AM [employer] HOUSE SUPERVISOR 02/19/2024 11:10 AM [employer]SE SUPERVISOR Ariel Oreilly MD LAB BLOOD ORDERABLES Final Result Performing Organization Address City/[facility]/ZIP Co de Phone Number [facility] ([place]) 1 [facility] [place] [address] * Magnesium (02/19/2024 10:59 AM T[employer] HOUSE SUPERVISOR) Magnesium 1.8 1.4 - 2.5 mg/dL Blood 02/19/2024 10:5 9 AM T[employer] HOUSE SUPERVISOR 02/19/2024 1:56 PM [employer]SE SUPERVISOR Ariel Oreilly MD LAB BLOOD ORDERABLES Final Result Performing Organization Address [facility] de Phone Number [facility]I [facility] ([place]) 1 [facility] [employer] [place] [address] * (ABNORMAL) Comprehensive metabolic panel (02/19/2024 10:59 AM TANK HOUSE SUPERVISOR) Sodium 138 135 - 145 mmol/L Comment:Dr Roman (ER) Potassium, pl 2.8(C) 3.3 - 4.9 mmol/L [facility] Comment:Critical Result call ed by [email or web address] at 2024-02-19 11:36:01. Result Read Back by Dr Roman (ER) Chloride 91(L) 97 - 110 mmol/L [facility] ([place]) Comment:Dr Roman (ER) CO2 27 22 - 32 mmol/L [facility] ([place]) Comment:Dr Roman (ER) Anion gap 20(H) 2 - 15 mmol/L [facility] ([place]) Comment:Dr Roman (ER) BUN 34(H) 6 - 25 mg/dL [facility] ([place]) Comment:Dr Roman (ER) Creatinine 0.98 0.60 - 1.10 mg/dL [facility] ([place]) Comment:Dr Roman (ER) Glucose 182 70 - 199 mg/dL [facility] ([place]) Comment: Dr Roman (ER) Interpretive Data Fasting glucose >/= 126 mg/dl is diagnostic for diabetes. ?? Fasting is defined as no caloric intake for at least 8 hours. Fasting glucose between 100 mg/dl to 125 mg/dl is diagnostic of prediabetes. In a patient with classic symptoms of hyperglycemia or hyperglycemic crisis, a random glucose >/= 200 mg/dl is diagnostic for diabetes. In the absence of unequivocal hyperglycemia, results should be confirmed by repeat testing. The classification and Diagnosis of Diabetes Diabetes Care 2021; 46: S19-S40. Current interpretive data was last revised 2022. Calcium 9.7 8.5 - 10.3 mg/dL [facility] ([place]) Comment:Dr Roman (ER) Bilirubin, total 1.0 0.1 - 1.2 mg/dL [facility] ([place]) Comment:Dr Roman (ER) Protein, pl 7.4 6.5 - 8.5 g/dL [facility] ([place]) Comment:Dr Roman (ER) Albumin 4.1 3.5 - 5.0 g/dL [facility] ([place]) Comment:Dr Roman (ER) Alk phos 91 40 - 130 Units/L [facility] ([place]) Comment:Dr Roman (ER) ALT 28 7 - 45 Units/L [facility] ([place]) Comment:Dr Roman (ER) AST 24 10 - 45 Units/L [facility] ([place]) Comment:Dr Roman (ER) Blood 02/19/2024 10:5 9 AM [employer] HOUSE SUPERVISOR 02/19/2024 11:10 AM [employer] HOUSE SUPERVISOR us Ariel Oreilly MD LAB BLOOD ORDERABLES Final Result [facility] ([place]) 1 [facility] Department of Laboratories [place], [place] [id number] * ECG 12 lead (02/19/2024 10:43 AM [employer] HOUSE SUPERVISOR) 02/19/2024 10:4 3 AM [employer] HOUSE SUPERVISOR Narrative [facility] - 02/19/2024 12:51 PM [employer] HOUSE SUPERVISOR Vent Rate: 87 bpm RR Interval: 685 msec NH Interval: 111 msec QRS Duration: 86 msec QT Interval: 378 msec QTC Interval: 423 msec P-R-T Thicket: 66 - 67 - 64 degrees IMPRESSION: SINUS RHYTHM WITH SHORT NH INTERVAL MODERATE ST DEPRESSION ??[0.05+ mV ST DEPRESSION] ABNORMAL ECG Compared to prior EKG, ??ST segment changes are new Electronically Signed By: Chapin Padron MD Ariel Oreilly MD ECG ORDERABLES Final Resul t Performing Organization Address [facility] de Phone Number [facility] * POCT glucose (02/13/2024 7:49 AM [employer] HOUSE SUPERVISOR) Glucose, POC 146 70 - 199 mg/dL Blood 02/13/2024 7:49 AM [employer] HOUSE SUPERVISOR 02/13/2024 7:49 AM [employer]ANK HOUSE SUPERVISOR Alma Carroll MD LAB POCT ORDERABLES - DEVICE F inal Result Performing Organization Address [facility] de Phone Number [facility] ([place]) 1 [facility] [employer] [facility] [place] [place] [address] * POCT glucose (02/13/2024 4:53 AM TANK HOUSE SUPERVISOR) [facility] Glucose, POC 180 70 - 199 mg/dL Blood 02/13/2024 4:53 AM TANK HOUSE SUPERVISOR 02/13/2024 4:53 AM [employer]ANK HOUSE SUPERVISOR Alma Carroll MD LAB POCT ORDERABLES - DEVICE F inal Result Performing Organization Address [facility] de Phone Number [facility] ([place]) 1 [facility] [place] [address] * eGFR (02/13/2024 4:46 AM TANK HOUSE SUPERVISOR) eGFR 74 >=60 mL/min/1. 73 m2 Comment: Interpretive Data Reference Interval Normal ?>/= 90 mL/min/1.73m2 Mildly decreased* ? 60 - 89 mL/min/1.73m2 Mildly to moderately decreased ?45 - 59 mL/min/1.73m2 Moderately to severely decreased ??30 - 44 mL/min/1.73m2 Severely decreased ?15 - 29 mL/min/1.73m2 Kidney Failure ?< 15 ??mL/min/1.73m2 *Relative to young adult level Estimated glomerular filtration rate is determined by the 2020 CKD-EPI equation recommended by the National Kidney Foundation (A Unifying Approach to GFR Estimation: Recommendations of the NKF-ASK Task Force on Reassessing the Inclusion of Race in Diagnosing Kidney Disease, JASN 2020). The CKD-EPI equation should not be used for patients with unstable renal function and has not been validated in children and those over 70. Current interpretive data was last reviewed 2021. Blood 02/13/2024 4:46 AM TANK HOUSE SUPERVISOR 02/13/2024 5:21 AM T[employer] HOUSE SUPERVISOR us Inocencio Miranda MD LAB BLOOD ORDERABLES Final Resu lt [facility] ([place]) 1 [facility] Department [place] [address] * (ABNORMAL) Differential, auto (02/13/2024 4:46 AM [employer] HOUSE SUPERVISOR) Neutrophil abs 11.5(H) 1.5 - 6.5 K/cumm Imm gran abs 0.1 0.0 - 0.1 K/cumm [facility] ([place]) Lymphocyte abs 1.0 0.8 - 3.3 K/cumm [facility] ([place]) Monocyte abs 0.5 0.2 - 0.8 K/cumm [facility] ([place]) Eosinophil abs 0.0 0.0 - 0.5 K/cumm [facility] ([place]) Basophil abs 0.0 0.0 - 0.1 K/cumm [facility] ([place]) Neutrophil pct 87.8 % [facility] ([place]) Comment: Interpretive Data Percent cell count reference ranges are not reported, since discordance with absolute values may lead to misinterpretation of CBC data. Current Interpretive Data was last revised on 2017. Imm gran pct 0.6 % [facility] ([place]) Comment: Interpretive Data Percent cell count reference ranges are not reported, since discordance with absolute values may lead to misinterpretation of CBC data. Current Interpretive Data was last revised on 2017. Lymphocyte pct 7.9 % [facility] ([place]) Comment: Interpretive Data Percent cell count reference ranges are not reported, since discordance with absolute values may lead to misinterpretation of CBC data. Current Interpretive Data was last revised on 2017. Monocyte pct 3.5 % [facility] ([place]) Comment: Interpretive Data Percent cell count reference ranges are not reported, since discordance with absolute values may lead to misinterpretation of CBC data. Current Interpretive Data was last revised on 2017. Eosinophil pct 0.1 % [facility] ([place]) Comment: Interpretive Data Percent cell count reference ranges are not reported, since discordance with absolute values may lead to misinterpretation of CBC data. Current Interpretive Data was last revised on 2017. Basophil pct 0.1 % [facility] ([place]) Comment: Interpretive Data Percent cell count reference ranges are not reported, since discordance with absolute values may lead to misinterpretation of CBC data. Current Interpretive Data was last revised on 2017. Blood 02/13/2024 4:46 AM TANK HOUSE SUPERVISOR 02/13/2024 5:21 AM TANK HOUSE SUPERVISOR us Inocencio Miranda MD LAB BLOOD ORDERABLES Final Resu lt [facility] ([place]) 1 [facility] Department [place] [address] * (ABNORMAL) CBC with auto differential (02/13/2024 4:46 AM TANK HOUSE SUPERVISOR) WBC 13.1(H) 3.8 - 9.9 K/cumm Hgb 10.2(L) 11.9 - 15.5 g/dL [facility] ([place]) Hct 34.1(L) 35.6 - 45.5 % [facility] ([place]) Plt 388 150 - 400 K/cumm [facility] ([place]) MPV 9.9 9.1 - 12.3 fL [facility] ([place]) RBC 3.87(L) 3.90 - 5.20 M/cumm [facility] ([place]) MCV 88.1 81.3 - 96.4 fL [facility] ([place]) MCH 26.4(L) 27.1 - 33.3 pg [facility] ([place]) MCHC 29.9(L) 32.3 - 35.7 g/dL [facility] ([place]) RDW CV 17.2(H) 11.1 - 14.9 % [facility] ([place]) RDW SD 55.5(H) 35.7 - 48.1 fL [facility] ([place]) NRBC abs 0.00 0.00 - 0.01 K/cumm [facility] ([place]) Blood 02/13/2024 4:46 AM TANK HOUSE SUPERVISOR 02/13/2024 5:21 AM TANK HOUSE SUPERVISOR us Inocencio Miranda MD LAB BLOOD ORDERABLES Final Resu lt Performing Organization Address City/[facility] Co de Phone Number REJI [facility]ERS ([place]) 1 [facility] [place] [address] * Magnesium (02/13/2024 4:46 AM TANK HOUSE SUPERVISOR) Magnesium 2.5 1.4 - 2.5 mg/dL Blood 02/13/2024 4:46 AM TANK HOUSE SUPERVISOR 02/13/2024 5:21 AM TANK HOUSE SUPERVISOR Inocencio Miranda MD LAB BLOOD ORDERABLES Final Resu lt [facility] ([place]) 1 [facility] [place] [address] * (ABNORMAL) Comprehensive metabolic panel (02/13/2024 4:46 AM TANK HOUSE SUPERVISOR) Sodium 141 135 - 145 mmol/L Potassium, pl 3.7 3.3 - 4.9 mmol/L [facility] ([place]) Chloride 101 97 - 110 mmol/L [facility] ([place] CO2 26 22 - 32 mmol/L [facility] ([place]) Anion gap 14 2 - 15 mmol/L [facility] ([place]) BUN 36(H) 6 - 25 mg/dL [facility] ([place]) Creatinine 0.85 0.60 - 1.10 mg/dL [facility] ([place]) Glucose 173 70 - 199 mg/dL [facility] ([place]) Comment: Interpretive Data Fasting glucose >/= 126 mg/dl is diagnostic for diabetes. ?? Fasting is defined as no caloric intake for at least 8 hours. Fasting glucose between 100 mg/dl to 125 mg/dl is diagnostic of prediabetes. In a patient with classic symptoms of hyperglycemia or hyperglycemic crisis, a random glucose >/= 200 mg/dl is diagnostic for diabetes. In the absence of unequivocal hyperglycemia, results should be confirmed by repeat testing. The classification and Diagnosis of Diabetes Diabetes Care 2021; 46: S19-S40. Current interpretive data was last revised 2022. Calcium 9.6 8.5 - 10.3 mg/dL [facility] ([place]) Bilirubin, total 0.3 0.1 - 1.2 mg/dL [facility] ([place]) Protein, pl 7.3 6.5 - 8.5 g/dL [facility] ([place]) Albumin 4.1 3.5 - 5.0 g/dL [facility] ([place]) Alk phos 86 40 - 130 Units/L [facility] ([place]) ALT 20 7 - 45 Units/L [facility] ([place]) AST 23 10 - 45 Units/L [facility] ([place]) Blood 02/13/2024 4:46 AM TANK HOUSE SUPERVISOR 02/13/2024 5:21 AM TANK HOUSE SUPERVISOR us Inocencio Miranda MD LAB BLOOD ORDERABLES Final Resu lt [facility] ([place]) 1 [facility] Department [place] [address] * (ABNORMAL) Pneumonia PCR with aerobic culture and Gram stain Sputum (02/12/2024 9:27 PM [employer]ANK HOUSE SUPERVISOR) Direct Specimen Exam Stain: Abundant squamous epithelial cells seen indicating excessive oropharyngeal contamination. ??Culture will not be processed further. ??Please submit another specimen. Smear results called to and read back by: Paul Gonzalez MLT ([phone]) on 02/13/2024 01:42:55 by: Tee Rincon MT Comment:Testing performed by : [facility], [address] [facility], [address] Direct Specimen Exam Molecular Analysis: Abundant squamous epithelial cells observed on Gram stain. Specimen will not be processed for rapid molecular analysis. [facility] ([place]) Comment:Testing performed by : [facility], [address] [place] [address], [id number] Report Final Report: This is the final report. (.) RE[facility]I [facility]ERS ([place]) Comment:Testing performed by : [facility], [address] [place] [address]., [id number] Sputum 02/12/2024 9:27 PM TANK HOUSE SUPERVISOR 02/13/2024 12:47 AM TANK HOUSE SUPERVISOR Narrative REJI [facility]) - 02/13/2024 7:31 AM TANK HOUSE SUPERVISOR When rapid molecular testing results are reported, testing completed using the [employer]ir[employer]etsy[employer] Pneumonia Panel. ??This molecular assay detects: Acinetobacter calcoaceticus-baumannii complex, Enterobacter cloacae complex, Escherichia coli, Haemophilus influenzae, Enterobacter (Klebsiella) aerogenes, ??Klebsiella oxytoca, Klebsiella pneumoniae group, Moraxella catarrhalis, Proteus spp., Pseudomonas aeruginosa, Serratia marcescens, Staphylococcus aureus, Streptococcus agalactiae, Streptococcus pneumoniae, and Streptococcus pyogenes. ?? These bacteria are detected and reported semi-quantitatively with bins representing approximately 10^4, 10^5, 10^6, or greater than or equal to 10^7 genomic copies of bacterial nucleic acid per mL (copies/mL) of specimen. ??These quantities are reported to aid in estimating the relative abundance of organism(s) detected within the specimen and to correlate these results with culture results. ?? For Staphylococcus aureus, mecA/C and MREJ genes are evaluated to predict methicillin resistance or susceptibility. ??For Gram-negative bacteria, the beta-lactamases CTX-M, IMP, KPC, NDM, VIM and OXA-48-like are evaluated and reported if detected. ??For Gram-negative organisms, the absence of detection of resistance markers does not exclude resistance. ?? Correlation with final culture results and susceptibility testing is recommended. The FilmArray Pneumonia Panel is cleared by the US Food and Drug Administration and its performance characteristics have been confirmed by the [facility]. ??The performance of the FilmArray Pneumonia Panel has not been established for monitoring treatment of infection and bacterial nucleic acids may persist independent of organism viability. Inocencio Miranda MD [facility] Final Result Performing Organization Address City/[facility]/ZIP Co de Phone Number [facility] ([place]) 1 [facility] Department [place] [employer] [place] [address] * POCT glucose (02/12/2024 9:17 PM [employer]PERVISOR) Glucose, POC 124 70 - 199 mg/dL Blood 02/12/2024 9:17 PM [employer] HOU[employer]PER[employer]OR 02/12/2024 9:17 PM [employer] Alma Carroll MD LAB POCT ORDERABLES - DEVICE F inal Result Performing Organization Address [facility] Co de Phone Number [facility] ([place]) 1 [facility] [place] [employer] [place] [address] * (ABNORMAL) POCT glucose (02/12/2024 4:56 PM [employer]PERVISOR) Glucose, POC 219(H) 70 - 199 mg/dL Comment:Glu2: RN/ Notified Blood 02/12/2024 4:56 PM [employer]PER[employer]OR 02/12/2024 4:56 PM [employer]PER[employer]OR Alma Carroll MD LAB POCT ORDERABLES - DEVICE F inal Result [facility] ([place]) 1 [facility] Department [place] [address] * TRANSTHORACIC ECHO (TTE) COMPLETE W DOPPLER/CF WO CONTRAST (02/12/2024 12:59 PM [employer]PERVISOR) Anatomical Region Laterality Modality Ultrasound 02/12/2024 1:43 PM [employer] HOU[employer]PER[employer]OR Narrative 02/12/2024 2:30 PM [employer] [address] [address] Echocardiogram Report Patient Name: MONSE BOUCHER J : 1955 Study Date: 02/12/2024 1:43:08 PM Gender: F Tech: AA Location: [id number] Ref Provider: ALMA CARROLL Height(Cm): BSA: ??Weight(Kg): Quality: Good Order Provider: ALMA CARROLL PROCEDURES: Echocardiographic Report: Transthoracic echocardiogram with complete 2D, M-Mode, and color Doppler examination. INDICATIONS: Shortness of breath. Measurements: 2D/M Mode ? Doppler Measurement ?Value ?Normal Range ?Measurement ? Value ?Normal Range LA Dimension MM ?4.05 ? [ 2.70 - 3.80 ] cm ?JAH Vmax ?2.81 ? cm2 AoR Diam MM ?2.49 ? [ 2.70 - 3.70 ] cm ?AV Mean PG ?5 ?mmHg ACS MM ? 1.38 ? cm ?AV Peak Stevo ? 1.50 ? [ 1.00 - 1.70 ] m/s ___ ?___ ?___ ? AV VTI ?27.51 ?cm ___ ?___ ?___ ? LVOT Diam ? 2.16 ? cm ___ ?___ ?___ ? LVOT Peak Stevo ? 1.15 ? [ 0.70 - 1.10 ] m/s ___ ?___ ?___ ? LVOT VTI ?23.45 ?cm ___ ?___ ?___ ? MV E Peak Stevo ? 1.10 ? [ 0.60 - 1.30 ] m/s ___ ?___ ?___ ? MV A Peak Stevo ? 1.30 ? [ 1.00 - 1.20 ] m/s ___ ?___ ?___ ? MV Mean PG ?4 ?mmHg ___ ?___ ?___ ? MV PHT ?59 ? [ 20 - 100 ] msec MVA ?2.70 MV Decel Time ?205 ? [ 104 - 258 ] msec PV Peak Stevo ?1.21 ?[ 0.40 - 0.80 ] m/s TR Peak Stevo ?3.03 ?[ 1.00 - 2.80 ] m/s TR Peak PG ? 37 ?mmHg RVSP ? 47.00 ? [ 10.00 - 36.00 ] mmHg E` ? 0.07 ?m/s E/E` ? 15.62 ? [ <= 10.00 ] PA Pressure ?10.00 ? [ 10.00 - 36.00 ] mmHg Measurement ?Value ?Normal Range ?Measurement ? Value ?Normal Range 2D/M Mode ? Doppler - FINDINGS: Atrial Septum: Normal atrial septum. Left Ventricle: Irregular rhythm. Mild concentric left ventricular hypertrophy. Normal global left ventricular systolic function. Diastolic dysfunction is present. Ejection fraction is visually estimated at 65 to 70 %. Left Atrium: The left atrium is normal in size. Right Ventricle: Normal right ventricular size. Normal right ventricular systolic function. Right Atrium: The right atrium is normal in size. Aortic Valve: Normal structure of the aortic valve. Mitral Valve: Normal structure of the mitral valve. Mild to moderate mitral valve regurgitation. Pulmonic Valve: Pulmonic valve not well visualized. Mild pulmonic regurgitation. Tricuspid Valve: Normal structure of the tricuspid valve. Mild pulmonary hypertension based on right ventricular systolic pressure. Estimated peak RVSP is 46 to 50 mmHg. Trivial regurgitation in the tricuspid valve. Pericardium: Normal pericardium with no significant pericardial effusion. Aorta: Normal aortic root. IVC: Normal size and normal respiratory collapse consistent with normal right atrial pressure (<5 mmHg). CONCLUSIONS: Irregular rhythm. Mild concentric left ventricular hypertrophy. Normal global left ventricular systolic function. Diastolic dysfunction is present. Ejection fraction is visually estimated at 65 to 70 %. Normal structure of the mitral valve. Mild to moderate mitral valve regurgitation. Normal structure of the aortic valve. Normal structure of the tricuspid valve. Mild pulmonary hypertension based on right ventricular systolic pressure. Estimated peak RVSP is 46 to 50 mmHg. Trivial regurgitation in the tricuspid valve. Technically difficult study with limited views. Electronically Signed By: Dr Bernabe Zamora 2024-02-12 14:29:58 [employer] Procedure Note Bernabe Zamora MD - 02/12/[address] [address] Echocardiogram Report Patient Name: MONSE BOUCHER J : 1955 Study Date: 02/12/2024 1:43:08 PM Gender: F Tech: Location: [place] [address] Ref Provider: ALMA CARROLL Height(Cm): BSA: Weight(Kg): Quality: Good Order Provider: ALMA CARROLL PROCEDURES: Echocardiographic Report: Transthoracic echocardiogram with complete 2D, M-Mode, and color Dopplerexamination. INDICATIONS: Shortness of breath. Measurements: 2D/M ModeDoppler Measurement Value Normal Range MeasurementValue Normal Range LA Dimension MM 4.05 [ 2.70 - 3.80 ] cm JAH Vmax2.81 cm2 AoR Diam MM 2.49 [ 2.70 - 3.70 ] cm AV Mean PG5 mmHg ACS MM 1.38 cm AV Peak Vel1.50 [ 1.00 - 1.70 ] m/s ___ ___ ___ AV VTI27.51 cm ___ ___ ___ LVOT Diam2.16 cm ___ ___ ___ LVOT Peak Vel1.15 [ 0.70 - 1.10 ] m/s ___ ___ ___ LVOT VTI23.45 cm ___ ___ ___ MV E Peak Vel1.10 [ 0.60 - 1.30 ] m/s ___ ___ ___ MV A Peak Vel1.30 [ 1.00 - 1.20 ] m/s ___ ___ ___ MV Mean PG4 mmHg ___ ___ ___ MV PHT59 [ 20 - 100 ] msec MVA 2.70 MV Decel Time 205 [ 104 - 258 ] msec PV Peak Stevo 1.21 [ 0.40 - 0.80 ] m/s TR Peak Stevo 3.03 [ 1.00 - 2.80 ] m/s TR Peak PG 37 mmHg RVSP 47.00 [ 10.00 - 36.00 ] mmHg E` 0.07 m/s E/E` 15.62 [ <= 10.00 ] PA Pressure 10.00 [ 10.00 - 36.00 ] mmHg Measurement Value Normal Range MeasurementValue Normal Range 2D/M ModeDoppler - FINDINGS: Atrial Septum: Normal atrial septum. Left Ventricle: Irregular rhythm. Mild concentric left ventricular hypertrophy. Normalglobal left ventricular systolic function. Diastolic dysfunction is present. Ejectionfraction is visually estimated at 65 to 70 %. Left Atrium: The left atrium is normal in size. Right Ventricle: Normal right ventricular size. Normal right ventricular systolicfunction. Right Atrium: The right atrium is normal in size. Aortic Valve: Normal structure of the aortic valve. Mitral Valve: Normal structure of the mitral valve. Mild to moderate mitral valveregurgitation. Pulmonic Valve: Pulmonic valve not well visualized. Mild pulmonic regurgitation. Tricuspid Valve: Normal structure of the tricuspid valve. Mild pulmonary hypertension basedon right ventricular systolic pressure. Estimated peak RVSP is 46 to 50 mmHg.Trivial regurgitation in the tricuspid valve. Pericardium: Normal pericardium with no significant pericardial effusion. Aorta: Normal aortic root. IVC: Normal size and normal respiratory collapse consistent with normal rightatrial pressure (<5 mmHg). CONCLUSIONS: Irregular rhythm. Mild concentric left ventricular hypertrophy. Normalglobal left ventricular systolic function. Diastolic dysfunction is present. Ejectionfraction is visually estimated at 65 to 70 %. Normal structure of the mitral valve. Mild to moderate mitral valveregurgitation. Normal structure of the aortic valve. Normal structure of the tricuspid valve. Mild pulmonary hypertension basedon right ventricular systolic pressure. Estimated peak RVSP is 46 to 50 mmHg.Trivial regurgitation in the tricuspid valve. Technically difficult study with limited views. Electronically Signed By: Dr Bernabe Zamora 2024-02-12 14:29:58 [employer] us Alma Carroll MD CV ECHO PROCEDURES Final Resul t * POCT glucose (02/12/2024 12:17 PM [employer]PERVISOR) Pathologist [facility] Glucose, POC 131 70 - 199 mg/dL Blood 02/12/2024 12:1 7 PM [employer]PER[employer]OR 02/12/2024 12:17 PM [employer] Alma Carroll MD LAB POCT ORDERABLES - DEVICE F inal Result Performing Organization Address City/[facility]/ZIP Co de Phone Number [facility] ([place]) 1 [facility] Department [place] [address] * (ABNORMAL) Lactate (02/12/2024 7:58 AM [employer] SUPERVISOR) [facility] Lactate 2.9(H) 0.7 - 2.0 mmol/L Blood 02/12/2024 7:58 AM [employer] HOU[employer] SUPERVISOR 02/12/2024 8:07 AM [employer] HOU[employer] SUPER[employer]OR Narrative [facility] ([place]) - 02/12/2024 8:15 AM [employer] SUPERVISOR unable to obtain labs, both phlebs attempted. 02/11/2024 10:39:42 [employer] us Inocencio Miranda MD LAB BLOOD ORDERABLES Final Resu lt [facility] ([place]) 1 [facility] Department [place] [address] * eGFR (02/12/2024 7:58 AM [employer] SUPERVISOR) Pathologist [facility] eGFR 73 >=60 mL/min/1. 73 m2 Comment: Interpretive Data Reference Interval Normal ?>/= 90 mL/min/1.73m2 Mildly decreased* ? 60 - 89 mL/min/1.73m2 Mildly to moderately decreased ?45 - 59 mL/min/1.73m2 Moderately to severely decreased ??30 - 44 mL/min/1.73m2 Severely decreased ?15 - 29 mL/min/1.73m2 Kidney Failure ?< 15 ??mL/min/1.73m2 *Relative to young adult level Estimated glomerular filtration rate is determined by the 2020 CKD-EPI equation recommended by the National Kidney Foundation (A Unifying Approach to GFR Estimation: Recommendations of the NKF-ASK Task Force on Reassessing the Inclusion of Race in Diagnosing Kidney Disease, JASN 2020). The CKD-EPI equation should not be used for patients with unstable renal function and has not been validated in children and those over 70. Current interpretive data was last reviewed 2021. Blood 02/12/2024 7:58 AM [employer]ANK HOUSE SUPERVISOR 02/12/2024 8:08 AM [employer] HOUSE SUPER[employer]OR us Inocencio Miranda MD LAB BLOOD ORDERABLES Final Resu lt [facility] ([place]) 1 [facility] Department [place] [address] * (ABNORMAL) Differential, auto (02/12/2024 7:58 AM [employer] SUPERVISOR) Neutrophil abs 12.7(H) 1.5 - 6.5 K/cumm Imm gran abs 0.1 0.0 - 0.1 K/cumm [facility] ([place]) Lymphocyte abs 0.9 0.8 - 3.3 K/cumm [facility] ([place]) Monocyte abs 0.9(H) 0.2 - 0.8 K/cumm [facility] ([place]) Eosinophil abs 0.0 0.0 - 0.5 K/cumm [facility] ([place]) Basophil abs 0.0 0.0 - 0.1 K/cumm [facility] ([place]) Neutrophil pct 86.7 % [facility] ([place]) Comment: Interpretive Data Percent cell count reference ranges are not reported, since discordance with absolute values may lead to misinterpretation of CBC data. Current Interpretive Data was last revised on 2017. Imm gran pct 0.6 % [facility] ([place]) Comment: Interpretive Data Percent cell count reference ranges are not reported, since discordance with absolute values may lead to misinterpretation of CBC data. Current Interpretive Data was last revised on 2017. Lymphocyte pct 6.3 % [facility] ([place]) Comment: Interpretive Data Percent cell count reference ranges are not reported, since discordance with absolute values may lead to misinterpretation of CBC data. Current Interpretive Data was last revised on 2017. Monocyte pct 6.3 % [facility] ([place]) Comment: Interpretive Data Percent cell count reference ranges are not reported, since discordance with absolute values may lead to misinterpretation of CBC data. Current Interpretive Data was last revised on 2017. Eosinophil pct 0.0 % [facility] ([place]) Comment: Interpretive Data Percent cell count reference ranges are not reported, since discordance with absolute values may lead to misinterpretation of CBC data. Current Interpretive Data was last revised on 2017. Basophil pct 0.1 % [facility] ([place]) Comment: Interpretive Data Percent cell count reference ranges are not reported, since discordance with absolute values may lead to misinterpretation of CBC data. Current Interpretive Data was last revised on 2017. Blood 02/12/2024 7:58 AM [employer] HOUSE SUPERVISOR 02/12/2024 8:08 AM [employer]SE SUPERVISOR us Inocencio Miranda MD LAB BLOOD ORDERABLES Final Resu lt [facility] ([place]) 1 [facility] Department [place] [address] * Procalcitonin (02/12/2024 7:58 AM [employer]SE [employer]PERVISOR) Procalcitonin 0.09 <=0.25 ng/mL Comment:Testing performed by : [facility], [address], [place]., [address] Blood 02/12/2024 7:58 AM [employer]SE SUPER[employer]OR 02/12/2024 1:32 PM [employer] SUPER[employer]OR us Inocencio Miranda MD LAB BLOOD ORDERABLES Final Resu lt [facility] ([place]) 1 [facility] Department [place] [address] * (ABNORMAL) CBC with auto differential (02/12/2024 7:58 AM [employer]PERVISOR) WBC 14.7(H) 3.8 - 9.9 K/cumm Hgb 10.3(L) 11.9 - 15.5 g/dL [facility] ([place]) Hct 34.5(L) 35.6 - 45.5 % [facility] ([place]) Plt 391 150 - 400 K/cumm [facility] ([place]) MPV 9.7 9.1 - 12.3 fL [facility] ([place]) RBC 3.88(L) 3.90 - 5.20 M/cumm [facility] ([place]) MCV 88.9 81.3 - 96.4 fL [facility] ([place]) MCH 26.5(L) 27.1 - 33.3 pg [facility] ([place]) MCHC 29.9(L) 32.3 - 35.7 g/dL [facility] ([place]) RDW CV 17.7(H) 11.1 - 14.9 % [facility] ([place]) RDW SD 57.6(H) 35.7 - 48.1 fL [facility] ([place]) NRBC abs 0.00 0.00 - 0.01 K/cumm [facility] ([place]) Blood 02/12/2024 7:58 AM [employer]SE SUPER[employer]OR 02/12/2024 8:08 AM [employer]SE SUPERVISOR Narrative [facility] ([place]) - 02/12/2024 8:11 AM [employer]SE SUPERVISOR U/O, rn notified. Trying again at 10am. [id number] 02/11/2024 08:12:24 [employer] Inocencio Miranda MD LAB BLOOD ORDERABLES Final Resu lt [facility] ([place]) 1 [facility] [place] [place] [address] * Magnesium (02/12/2024 7:58 AM T[employer]SE SUPERVISOR) Magnesium 2.3 1.4 - 2.5 mg/dL Blood 02/12/2024 7:58 AM [employer]SE SUPERVISOR 02/12/2024 8:08 AM [employer]SE SUPER[employer]OR Inocencio Miranda MD LAB BLOOD ORDERABLES Final Resu lt Performing Organization Address [facility] Co de Phone Number [facility] ([place]) 1 [facility] [place] [address] * (ABNORMAL) Comprehensive metabolic panel (02/12/2024 7:58 AM [employer]SE SUPERVISOR) Sodium 145 135 - 145 mmol/L Potassium, pl 3.4 3.3 - 4.9 mmol/L [facility] ([place]) Chloride 104 97 - 110 mmol/L [facility] ([place]) CO2 24 22 - 32 mmol/L [facility] ([place]) Anion gap 17(H) 2 - 15 mmol/L [facility] ([place]) BUN 29(H) 6 - 25 mg/dL [facility] ([place]) Creatinine 0.86 0.60 - 1.10 mg/dL [facility] ([place]) Glucose 143 70 - 199 mg/dL [facility] ([place]) Comment: Interpretive Data Fasting glucose >/= 126 mg/dl is diagnostic for diabetes. ?? Fasting is defined as no caloric intake for at least 8 hours. Fasting glucose between 100 mg/dl to 125 mg/dl is diagnostic of prediabetes. In a patient with classic symptoms of hyperglycemia or hyperglycemic crisis, a random glucose >/= 200 mg/dl is diagnostic for diabetes. In the absence of unequivocal hyperglycemia, results should be confirmed by repeat testing. The classification and Diagnosis of Diabetes Diabetes Care 202; 46: S19-S40. Current interpretive data was last revised 2022. Calcium 9.6 8.5 - 10.3 mg/dL [facility] ([place]) Bilirubin, total 0.3 0.1 - 1.2 mg/dL [facility] ([place]) Protein, pl 7.6 6.5 - 8.5 g/dL [facility] ([place]) Albumin 4.3 3.5 - 5.0 g/dL [facility] ([place]) Alk phos 89 40 - 130 Units/L [facility] ([place]) ALT 23 7 - 45 Units/L [facility] ([place]) AST 34 10 - 45 Units/L [facility] ([place]) Blood 02/12/2024 7:58 AM [employer]PER[employer]OR 02/12/2024 8:08 AM [employer] SUPER[employer] us Inocencio Miranda MD LAB BLOOD ORDERABLES Final Resu lt Performing Organization Address [facility] Co de Phone Number [facility] ([place]) 1 [facility] [place] [address] * POCT glucose (02/12/2024 7:44 AM [employer]PER[employer]OR) Glucose, POC 141 70 - 199 mg/dL Blood 02/12/2024 7:44 AM [employer]SE SUPER[employer]OR 02/12/2024 7:44 AM [employer] SUPER[employer]OR us Alma Carroll MD LAB POCT ORDERABLES - DEVICE F inal Result Performing Organization Address [facility] Co de Phone Number [facility] ([place]) 1 [facility] [place] [place] [address] * POCT glucose (02/12/2024 4:17 AM T[employer] SUPERVISOR) Glucose, POC 194 70 - 199 mg/dL Blood 02/12/2024 4:17 AM [employer] HOUSE SUPERVISOR 02/12/2024 4:17 AM [employer] SUPER[employer]OR us Alma Carroll MD LAB POCT ORDERABLES - DEVICE F inal Result Performing Organization Address [facility] Co de Phone Number [facility] ([place]) 1 [facility] Department [place] [address] * Lactate (02/12/2024 3:55 AM [employer]PERVISOR) Lactate 1.6 0.7 - 2.0 mmol/L Blood 02/12/2024 3:55 AM [employer]SE SUPER[employer]OR 02/12/2024 4:02 AM [employer]SE SUPER[employer]OR us Alma Carroll MD LAB BLOOD ORDERABLES Final Res ult Performing Organization Address City/[facility] Co de Phone Number [facility] ([place]) 1 [facility] Department [place] [place] [address] * eGFR (02/12/2024 3:55 AM T[employer] HOUSE [employer]PERVISOR) eGFR 70 >=60 mL/min/1. 73 m2 Comment: Interpretive Data Reference Interval Normal ?>/= 90 mL/min/1.73m2 Mildly decreased* ? 60 - 89 mL/min/1.73m2 Mildly to moderately decreased ?45 - 59 mL/min/1.73m2 Moderately to severely decreased ??30 - 44 mL/min/1.73m2 Severely decreased ?15 - 29 mL/min/1.73m2 Kidney Failure ?< 15 ??mL/min/1.73m2 *Relative to young adult level Estimated glomerular filtration rate is determined by the 2020 CKD-EPI equation recommended by the National Kidney Foundation (A Unifying Approach to GFR Estimation: Recommendations of the NKF-ASK Task Force on Reassessing the Inclusion of Race in Diagnosing Kidney Disease, JASN 2020). The CKD-EPI equation should not be used for patients with unstable renal function and has not been validated in children and those over 70. Current interpretive data was last reviewed 2021. Blood 02/12/2024 3:55 AM TANK HOUSE SUPERVISOR 02/12/2024 4:02 AM [employer]SE SUPER[employer]OR us Inocencio Miranda MD LAB BLOOD ORDERABLES Final Resu lt [facility] ([place]) 1 [facility] Department [place] [address] * (ABNORMAL) Differential, auto (02/12/2024 3:55 AM [employer]PER[employer]OR) Neutrophil abs 11.9(H) 1.5 - 6.5 K/cumm Imm gran abs 0.1 0.0 - 0.1 K/cumm [facility] ([place]) Lymphocyte abs 0.7(L) 0.8 - 3.3 K/cumm [facility] ([place]) Monocyte abs 0.6 0.2 - 0.8 K/cumm [facility] ([place]) Eosinophil abs 0.0 0.0 - 0.5 K/cumm [facility] ([place]) Basophil abs 0.0 0.0 - 0.1 K/cumm [facility] ([place]) Neutrophil pct 89.7 % [facility] ([place]) Comment: Interpretive Data Percent cell count reference ranges are not reported, since discordance with absolute values may lead to misinterpretation of CBC data. Current Interpretive Data was last revised on 2017. Imm gran pct 0.5 % [facility] ([place]) Comment: Interpretive Data Percent cell count reference ranges are not reported, since discordance with absolute values may lead to misinterpretation of CBC data. Current Interpretive Data was last revised on 2017. Lymphocyte pct 4.9 % [facility] ([place]) Comment: Interpretive Data Percent cell count reference ranges are not reported, since discordance with absolute values may lead to misinterpretation of CBC data. Current Interpretive Data was last revised on 2017. Monocyte pct 4.7 % [facility] ([place]) Comment: Interpretive Data Percent cell count reference ranges are not reported, since discordance with absolute values may lead to misinterpretation of CBC data. Current Interpretive Data was last revised on 2017. Eosinophil pct 0.1 % [facility] ([place]) Comment: Interpretive Data Percent cell count reference ranges are not reported, since discordance with absolute values may lead to misinterpretation of CBC data. Current Interpretive Data was last revised on 2017. Basophil pct 0.1 % [facility] ([place]) Comment: Interpretive Data Percent cell count reference ranges are not reported, since discordance with absolute values may lead to misinterpretation of CBC data. Current Interpretive Data was last revised on 2017. Blood 02/12/2024 3:55 AM [employer] HOUSE SUPERVISOR 02/12/2024 4:02 AM [employer] HOUSE SUPERVISOR us Inocencio Miranda MD LAB BLOOD ORDERABLES Final Resu lt [facility] ([place]) 1 [facility] Department [place] [address] * (ABNORMAL) CBC with auto differential (02/12/2024 3:55 AM [employer]SE SUPERVISOR) WBC 13.2(H) 3.8 - 9.9 K/cumm Hgb 9.0(L) 11.9 - 15.5 g/dL [facility] ([place]) Hct 30.0(L) 35.6 - 45.5 % [facility] ([place]) Plt 321 150 - 400 K/cumm [facility] ([place]) MPV 9.7 9.1 - 12.3 fL [facility] ([place]) RBC 3.40(L) 3.90 - 5.20 M/cumm [facility] ([place]) MCV 88.2 81.3 - 96.4 fL [facility] ([place]) MCH 26.5(L) 27.1 - 33.3 pg [facility] ([place]) MCHC 30.0(L) 32.3 - 35.7 g/dL [facility] ([place]) RDW CV 17.6(H) 11.1 - 14.9 % [facility] ([place]) RDW SD 57.1(H) 35.7 - 48.1 fL [facility] ([place]) NRBC abs 0.00 0.00 - 0.01 K/cumm [facility] ([place]) Blood 02/12/2024 3:55 AM [employer]SE SUPER[employer]OR 02/12/2024 4:02 AM [employer]SE [employer]PER[employer]OR us Inocencio Miranda MD LAB BLOOD ORDERABLES Final Resu lt Performing Organization Address City/[facility]/ZIP Co de Phone Number [facility] ([place]) 1 [facility] [place] [place] [address] * Magnesium (02/12/2024 3:55 AM T[employer]SE SUPERVISOR) Magnesium 2.2 1.4 - 2.5 mg/dL Blood 02/12/2024 3:55 AM [employer] HOUSE SUPERVISOR 02/12/2024 4:02 AM [employer]SE SUPER[employer]OR us Inocencio Miranda MD LAB BLOOD ORDERABLES Final Resu lt Performing Organization Address [facility] de Phone Number [facility] ([place]) 1 [facility] [place] [place] [address] * (ABNORMAL) Comprehensive metabolic panel (02/12/2024 3:55 AM TANK HOUSE SUPERVISOR) Sodium 143 135 - 145 mmol/L Potassium, pl 3.5 3.3 - 4.9 mmol/L [facility] ([place] Chloride 105 97 - 110 mmol/L [facility] ([place]) CO2 26 22 - 32 mmol/L [facility] ([place]) Anion gap 11 2 - 15 mmol/L [facility] ([place]) BUN 28(H) 6 - 25 mg/dL [facility] ([place]) Creatinine 0.89 0.60 - 1.10 mg/dL [facility] ([place]) Glucose 181 70 - 199 mg/dL [facility] ([place]) Comment: Interpretive Data Fasting glucose >/= 126 mg/dl is diagnostic for diabetes. ?? Fasting is defined as no caloric intake for at least 8 hours. Fasting glucose between 100 mg/dl to 125 mg/dl is diagnostic of prediabetes. In a patient with classic symptoms of hyperglycemia or hyperglycemic crisis, a random glucose >/= 200 mg/dl is diagnostic for diabetes. In the absence of unequivocal hyperglycemia, results should be confirmed by repeat testing. The classification and Diagnosis of Diabetes Diabetes Care 2021; 46: S19-S40. Current interpretive data was last revised 2022. Calcium 9.1 8.5 - 10.3 mg/dL [facility] ([place]) Bilirubin, total 0.3 0.1 - 1.2 mg/dL [facility] ([place]) Protein, pl 6.3(L) 6.5 - 8.5 g/dL [facility] [place]) Albumin 3.8 3.5 - 5.0 g/dL [facility] [place]) Alk phos 74 40 - 130 Units/L [facility] [place]) ALT 18 7 - 45 Units/L [facility] [place]) AST 28 10 - 45 Units/L [facility] [place]) Blood 02/12/2024 3:55 AM TANK HOUSE SUPERVISOR 02/12/2024 4:02 AM T[employer] HOUSE SUPERVISOR us Inocencio Miranda MD LAB BLOOD ORDERABLES Final Resu lt [facility] ([place]) 1 [facility] [place] [address] * POCT glucose (02/12/2024 12:27 AM [employer] HOUSE SUPERVISOR) Glucose, POC 186 70 - 199 mg/dL Blood 02/12/2024 12:2 7 AM [employer] HOUSE SUPERVISOR 02/12/2024 12:27 AM T[employer] HOUSE SUPERVISOR Alma Carroll MD LAB POCT ORDERABLES - DEVICE F inal Result [facility] 1 [facility] [place] [address] * POCT glucose (02/11/2024 8:32 PM T[employer] HOUSE SUPERVISOR) Glucose, POC 156 70 - 199 mg/dL Blood 02/11/2024 8:32 PM [employer] HOUSE SUPERVISOR 02/11/2024 8:32 PM T[employer] HOUSE SUPERVISOR Alma Carroll MD LAB POCT ORDERABLES - DEVICE F inal Result Performing Organization Address City/[facility]/ZIP Co de Phone Number [facility] ([place]) 1 [facility] [place] [employer] [place] [address] * POCT glucose (02/11/2024 5:01 PM [employer] HOUSE SUPERVISOR) Glucose, POC 158 70 - 199 mg/dL Blood 02/11/2024 5:0 1 PM [employer] HOUSE SUPERVISOR 02/11/2024 5:01 PM TANK HOUSE SUPERVISOR Alma Carroll MD LAB POCT ORDERABLES - DEVICE F inal Result Performing Organization Address [facility] de Phone Number [facility] ([place]) 1 [facility] Department [place] [employer] [place] [address] * CT Chest WO Contrast (02/11/2024 12:37 PM T[employer] HOUSE SUPERVISOR) Anatomical Region Laterality Modality Body N/A Computed Tomogra phy 02/11/2024 3:08 PM TANK HOUSE SUPERVISOR Narrative 02/11/2024 3:13 PM TANK HOUSE SUPERVISOR EXAM DESCRIPTION: ?? CT CHEST WO CONTRAST REASON FOR STUDY: ?? recent pneumonia, copd ?? Sob for several days ? TECHNIQUE: CT scan of the chest performed without intravenous contrast using helical scanning technique. Reconstructed coronal and sagittal MPR images reviewed. ??All images stored on PACS. ??Automated exposure control was used as a dose optimization technique for this examination. COMPARISON: ?? 02/10/2024. FINDINGS: The sensitivity for detection of solid visceral lesions is diminished without the use of intravenous contrast. LUNGS: ?? Motion degraded evaluation without evidence of pneumonia or pulmonary edema. ??There are scattered calcified granulomas. ??Minimal areas of atelectasis. PLEURA: ?? No effusion. No pneumothorax. MEDIASTINUM/MACK: ?? Calcifications in lymph nodes are compatible with old granulomatous disease. ??No mass or adenopathy by size criteria HEART: ?? Normal size, no pericardial effusion. ??Mild mitral annulus calcification. CORONARY ARTERY CALCIFICATION: ??Mild calcification at the proximal right coronary artery. VASCULATURE: ?? Mild athero sclerotic calcifications without thoracic aortic aneurysm. AXILLA: ?? No adenopathy. CHEST WALL: ?? No masses. ??No subcutaneous air. HARDWARE/LINES/TUBES: ?? None. UPPER ABDOMEN: ?? Calcifications in the spleen are compatible with old granulomatous disease. MUSCULOSKELETAL: ?? Degenerative disc disease throughout the visualized spine.. No aggressive bone lesion or acute fracture is seen. ??Mild C6 on C7 and C7 on T1 anterolisthesis are noted. OTHER: ?? No other significant abnormality. IMPRESSION: No acute findings in the chest. THIS IS AN ELECTRONICALLY VERIFIED FINAL REPORT 02/11/2024 3:13 PM - Electronically signed by ??Manfred Hernandez M.D. MZ: GANESH D: ??02/11/2024 3:13 PM T: ??02/11/2024 3:13 PM Report ID: [id number] Reading Location: ??[id number] Procedure Note Manfred Hernandez MD - 02/11/2024 EXAM DESCRIPTION: CT CHEST WO CONTRAST REASON FOR STUDY: recent pneumonia, copd Sob for several days TECHNIQUE: CT scan of the chest performed without intravenous contrastusing helical scanning technique. Reconstructed coronal and sagittal MPR images reviewed. All images stored on PACS. Automated exposure control was usedas a dose optimization technique for this examination. COMPARISON: 02/10/2024. FINDINGS: The sensitivity for detection of solid visceral lesions is diminishedwithout the use of intravenous contrast. LUNGS: Motion degraded evaluation without evidence of pneumonia orpulmonary edema. There are scattered calcified granulomas. Minimal areas of atelectasis. PLEURA: No effusion. No pneumothorax. MEDIASTINUM/MACK: Calcifications in lymph nodes are compatible with old granulomatous disease. No mass or adenopathy by size criteria HEART: Normal size, no pericardial effusion. Mild mitral annulus calcification. CORONARY ARTERY CALCIFICATION: Mild calcification at the proximal right coronary artery. VASCULATURE: Mild athero sclerotic calcifications without thoracicaortic aneurysm. AXILLA: No adenopathy. CHEST WALL: No masses. No subcutaneous air. HARDWARE/LINES/TUBES: None. UPPER ABDOMEN: Calcifications in the spleen are compatible with old granulomatous disease. MUSCULOSKELETAL: Degenerative disc disease throughout the visualizedspine.. No aggressive bone lesion or acute fracture is seen. Mild C6 on C7 andC7 on T1 anterolisthesis are noted. OTHER: No other significant abnormality. IMPRESSION: No acute findings in the chest. THIS IS AN ELECTRONICALLY VERIFIED FINAL REPORT 02/11/2024 3:13 PM - Electronically signed by Manfred Hernandez M.D. MZ: MZ Report ID: [id number] Reading Location: [id number] us Alma Carroll MD IMG CT PROCEDURES Final Result * Strep pneumoniae antigen, urine Urine (02/11/2024 7:50 AM TANK HOUSE SUPERVISOR) S. pneumoniae Ag Negative Negative Comment: Interpretive Data A positive result is indicative of pneumococcal pneumonia in patients with severe CAP. ??Cross-reactivity with closely related Streptococcus bacteria may occur. A negative result suggests no current or recent pneumococcal infection but cannot rule out infection with S. pneumoniae. The results of this testing should be used in conjunction with clinical findings and other diagnostic testing, including microbiologic culture. Current Interpretive Data was last revised on 2022 Testing performed by: [address] [place] [address] Urine 02/11/2024 7:50 AM T[employer] HOUSE SUPERVISOR 02/11/2024 1:29 PM TANK HOUSE SUPERVISOR Inocencio Miranda MD LAB MICROBIOLOGY - GENERAL [place] Final Result [facility] [place] 1 [facility] Department [place] [address] * Legionella antigen Urine (02/11/2024 7:50 AM TANK HOUSE SUPERVISOR) Legionella Ag Negative Negative Comment: Interpretive Data This test detects only Legionella pneumophila serogroup 1 antigen. ?? Current interpretive data was last revised on 2019. Testing performed by: [address] [address] Urine 02/11/2024 7:50 AM TANK HOUSE SUPERVISOR 02/11/2024 1:29 PM TANK HOUSE SUPERVISOR Inocencio Miranda MD [facility] Final Result Performing Organization Address City/[facility]/ZIP Co de Phone Number [facility] ([place]) 1 [facility] Department [place] [address] * (ABNORMAL) MRSA Only (Staphylococcus aureus) PCR Nasal (02/11/2024 6:12 AM TANK HOUSE SUPERVISOR) PCR Scrn, Methicillin resistant Staphylococcus aureus (MRSA) Detected( A) Not Detected Comment: Interpretive Data Testing performed using Nucleic Acid Amplification with the [employer] Xpert MRSA NxG Assay. This assay detects target DNA from mecA, mecC and the SCCmec insertion site of Staphylococcus aureus using Real-Time PCR and has been cleared by the FDA. Performance characteristics have been verified by the [facility]. Current Interpretive Data was last revised on 2022 Nasal 02/11/2024 6:12 AM TANK HOUSE SUPERVISOR 02/11/2024 6:27 AM TANK HOUSE SUPERVISOR Inocencio Miranda MD LAB MICROBIOLOGY - [facility] [place] Final Result Performing Organization Address City/[facility]/ZIP Co de Phone Number [facility] ([place]) 1 [facility] Department [place] [address] * Troponin T high-sensitivity 6-hour (02/10/2024 10:46 PM TANK HOUSE SUPERVISOR) Trop T hs 8 <=14 ng/L Comment: Interpretive Data For further hscTnT resources including the diagnostic algorithm and an aid in interpretation, copy and paste this link: https://nrl.testcatalog.org/show/hsTrop Current Interpretive Data last revised 2020. Trop T hs delta -2 ng/L [facility] ([place]) Trop T hs interp Insignificant [facility] ([place]) Blood 02/10/2024 10:4 6 PM T[employer] HOUSE SUPERVISOR 02/10/2024 10:52 PM TANK HOUSE SUPERVISOR Joleen OLPEZ LAB BLOOD ORDERABLES Alice l Result [facility] ([place]) 1 [facility] [place] [address] * (ABNORMAL) Sepsis Lactate w/ Reflex (02/10/2024 10:46 PM TANK HOUSE SUPERVISOR) Pathologist [facility] Sepsis Lactate 2.6(H) 0.7 - 2.0 mmol/L Blood 02/10/2024 10:4 6 PM T[employer] HOUSE SUPERVISOR 02/10/2024 10:52 PM TANK HOUSE SUPERVISOR Narrative [facility] ([place]) - 02/10/2024 10:56 PM [employer] HOUSE SUPERVISOR kimmy vazquez said to grab all labs now [id number] Joleen LOPEZ LAB BLOOD ORDERABLES Alice l Result Performing Organization Address City/[facility]/ZIP Co de Phone Number [facility] ([place]) [address] [place] [address] [place] [address] * eGFR (02/10/2024 10:46 PM TANK HOUSE SUPERVISOR) Pathologist [facility] eGFR 89 >=60 mL/min/1. 73 m2 Comment: Interpretive Data Reference Interval Normal ?>/= 90 mL/min/1.73m2 Mildly decreased* ? 60 - 89 mL/min/1.73m2 Mildly to moderately decreased ?45 - 59 mL/min/1.73m2 Moderately to severely decreased ??30 - 44 mL/min/1.73m2 Severely decreased ?15 - 29 mL/min/1.73m2 Kidney Failure ?< 15 ??mL/min/1.73m2 *Relative to young adult level Estimated glomerular filtration rate is determined by the 2020 CKD-EPI equation recommended by the National Kidney Foundation (A Unifying Approach to GFR Estimation: Recommendations of the NKF-ASK Task Force on Reassessing the Inclusion of Race in Diagnosing Kidney Disease, JASN 2020). The CKD-EPI equation should not be used for patients with unstable renal function and has not been validated in children and those over 70. Current interpretive data was last reviewed 2021. Blood 02/10/2024 10:4 6 PM TANK HOUSE SUPERVISOR 02/10/2024 10:52 PM TANK HOUSE SUPERVISOR us Joleen LOPEZ LAB BLOOD ORDERABLES Alice salazar Result [facility] ([place]) 1 [facility] Department [place] [address] * (ABNORMAL) Differential, auto (02/10/2024 10:46 PM TANK HOUSE SUPERVISOR) Neutrophil abs 13.3(H) 1.5 - 6.5 K/cumm Imm gran abs 0.1 0.0 - 0.1 K/cumm [facility] ([place]) Lymphocyte abs 0.4(L) 0.8 - 3.3 K/cumm [facility] ([place]) Monocyte abs 0.3 0.2 - 0.8 K/cumm [facility] ([place]) Eosinophil abs 0.0 0.0 - 0.5 K/cumm [facility] ([place]) Basophil abs 0.0 0.0 - 0.1 K/cumm [facility] ([place]) Neutrophil pct 94.6 % [facility] ([place]) Comment: Interpretive Data Percent cell count reference ranges are not reported, since discordance with absolute values may lead to misinterpretation of CBC data. Current Interpretive Data was last revised on 2017. Imm gran pct 0.4 % [facility] ([place]) Comment: Interpretive Data Percent cell count reference ranges are not reported, since discordance with absolute values may lead to misinterpretation of CBC data. Current Interpretive Data was last revised on 2017. Lymphocyte pct 2.7 % [facility] ([place]) Comment: Interpretive Data Percent cell count reference ranges are not reported, since discordance with absolute values may lead to misinterpretation of CBC data. Current Interpretive Data was last revised on 2017. Monocyte pct 2.1 % [facility] ([place]) Comment: Interpretive Data Percent cell count reference ranges are not reported, since discordance with absolute values may lead to misinterpretation of CBC data. Current Interpretive Data was last revised on 2017. Eosinophil pct 0.1 % [facility] ([place]) Comment: Interpretive Data Percent cell count reference ranges are not reported, since discordance with absolute values may lead to misinterpretation of CBC data. Current Interpretive Data was last revised on 2017. Basophil pct 0.1 % [facility] ([place]) Comment: Interpretive Data Percent cell count reference ranges are not reported, since discordance with absolute values may lead to misinterpretation of CBC data. Current Interpretive Data was last revised on 2017. Blood 02/10/2024 10:4 6 PM TANK HOUSE SUPERVISOR 02/10/2024 10:52 PM TANK HOUSE SUPERVISOR us Joleen LOPEZ LAB BLOOD ORDERABLES Alice salazar Result [facility] ([place]) 1 [facility] Department [place] [address] * (ABNORMAL) CBC with auto differential (02/10/2024 10:46 PM TANK HOUSE SUPERVISOR) WBC 14.1(H) 3.8 - 9.9 K/cumm Hgb 9.9(L) 11.9 - 15.5 g/dL [facility] ([place]) Hct 32.7(L) 35.6 - 45.5 % [facility] ([place]) Plt 335 150 - 400 K/cumm [facility] ([place]) MPV 10.1 9.1 - 12.3 fL [facility] ([place]) RBC 3.75(L) 3.90 - 5.20 M/cumm [facility] ([place]) MCV 87.2 81.3 - 96.4 fL [facility] ([place]) Comment:MCV delta possibly d ue to low sample volume. MCH 26.4(L) 27.1 - 33.3 pg [facility] ([place]) MCHC 30.3(L) 32.3 - 35.7 g/dL [facility] ([place]) RDW CV 17.5(H) 11.1 - 14.9 % [facility] ([place]) RDW SD 55.9(H) 35.7 - 48.1 fL [facility] NRBC abs 0.00 0.00 - 0.01 K/cumm [facility] ([place]) Blood 02/10/2024 10:4 6 PM [employer]ANK HOUSE SUPERVISOR 02/10/2024 10:52 PM TANK HOUSE SUPERVISOR us Joleen LOPEZ LAB BLOOD ORDERABLES Alice salazar Result [facility] ([place]) 1 [facility] Department [place] [address] * (ABNORMAL) Comprehensive metabolic panel (02/10/2024 10:46 PM TANK HOUSE SUPERVISOR) Sodium 140 135 - 145 mmol/L Potassium, pl 3.7 3.3 - 4.9 mmol/L [facility] Chloride 103 97 - 110 mmol/L [facility]) CO2 24 22 - 32 mmol/L [facility]) Anion gap 13 2 - 15 mmol/L [facility] BUN 18 6 - 25 mg/dL [facility] [place]) Creatinine 0.73 0.60 - 1.10 mg/dL [facility] ([place]) Glucose 250(H) 70 - 199 mg/dL [facility] ([place]) Comment: Interpretive Data Fasting glucose >/= 126 mg/dl is diagnostic for diabetes. ?? Fasting is defined as no caloric intake for at least 8 hours. Fasting glucose between 100 mg/dl to 125 mg/dl is diagnostic of prediabetes. In a patient with classic symptoms of hyperglycemia or hyperglycemic crisis, a random glucose >/= 200 mg/dl is diagnostic for diabetes. In the absence of unequivocal hyperglycemia, results should be confirmed by repeat testing. The classification and Diagnosis of Diabetes Diabetes Care 2021; 46: S19-S40. Current interpretive data was last revised 2022. Calcium 9.6 8.5 - 10.3 mg/dL [facility] ([place]) Bilirubin, total 0.3 0.1 - 1.2 mg/dL [facility] ([place]) Protein, pl 7.0 6.5 - 8.5 g/dL [facility] ([place]) Albumin 3.8 3.5 - 5.0 g/dL [facility] ([place]) Alk phos 91 40 - 130 Units/L [facility] [place]) ALT 19 7 - 45 Units/L [facility] [place]) AST 31 10 - 45 Units/L [facility] [place]) Comment:Slightly Hemolyzed S pecimen Blood 02/10/2024 10:4 6 PM TANK HOUSE SUPERVISOR 02/10/2024 10:52 PM TANK HOUSE SUPERVISOR Joleen LOPEZ LAB BLOOD ORDERABLES Alice l Result Performing Organization Address [facility]/ZIP Co de Phone Number [facility] ([place]) 1 [facility] [place] [address] * Troponin T high-sensitivity 4-hour (02/10/2024 8:55 PM [employer] SUPERVISOR) Trop T hs 9 <=14 ng/L Comment: Interpretive Data For further hscTnT resources including the diagnostic algorithm and an aid in interpretation, copy and paste this link: https://nrl.testcatalog.org/show/hsTrop Current Interpretive Data last revised 2020. Trop T hs delta -1 ng/L [facility] ([place]) Trop T hs interp Insignificant [facility] ([place]) Blood 02/10/2024 8:55 PM TANK HOUSE SUPERVISOR 02/10/2024 9:13 PM TANK HOUSE SUPERVISOR Joleen LOPEZ LAB BLOOD ORDERABLES Alice l Result Performing Organization Address City/[facility]/ZIP Co de Phone Number [facility] ([place]) 1 [facility] Department [place] [employer] [place] [address] * (ABNORMAL) Sepsis Lactate w/ Reflex (02/10/2024 8:55 PM T[employer] SUPERVISOR) Sepsis Lactate 3.2(H) 0.7 - 2.0 mmol/L Blood 02/10/2024 8:55 PM TANK HOUSE SUPERVISOR 02/10/2024 9:12 PM TANK HOUSE SUPERVISOR us Joleen LOPEZ LAB BLOOD ORDERABLES Alice salazar Result [facility] ([place]) 1 [facility] Department [place] [address] * XR Chest 1 Vw Portable (02/10/2024 6:31 PM TANK HOUSE SUPERVISOR) Anatomical Region Laterality Modality Body, Chest N/A Computed Radiogr aphy 02/10/2024 6:39 PM TANK HOUSE SUPERVISOR Narrative 02/10/2024 6:41 PM TANK HOUSE SUPERVISOR EXAM DESCRIPTION: XR CHEST 1 VIEW REASON FOR STUDY: sob ?? Pt arrives to ED via [facility] from home for SOB x 2 days. Pt has hx of COPD and CVA. Pt was seen yesterday at [facility] and was prescribed duo neb and prednisone. Pt was worse today. Pt was at 89% on RA per EMS. Pt placed on 2 L/min en route and given duo neb. ? TECHNIQUE: 1 ??radiographic view(s) of the chest. COMPARISON: 11/07/2021 FINDINGS: LUNGS: ??No focal opacity, pleural effusion, or pneumothorax. ?? Redemonstrated calcified granuloma in the left upper lobe. HEART/MEDIASTINUM: ??Cardiac silhouette normal in size. Mediastinal and hilar contours appear normal. LINES/TUBES: ??None. BONES: ??No acute osseous abnormality. IMPRESSION: No acute cardiopulmonary abnormality. THIS IS AN ELECTRONICALLY VERIFIED FINAL REPORT 02/10/2024 6:41 PM - Electronically signed by ??Felix Badillo M.D. KR: LAURA D: ??02/10/2024 6:41 PM T: ??02/10/2024 6:41 PM Report ID: [id number] Reading Location: ??[id number] Procedure Note Felix Badillo MD - 02/10/2024 EXAM DESCRIPTION: XR CHEST 1 VIEW REASON FOR STUDY: sob Pt arrives to ED via [facility] from home for SOB x 2 days. Pt has hx of COPDand CVA. Pt was seen yesterday at [facility] and was prescribed duo neb andprednisone. Pt was worse today. Pt was at 89% on RA per EMS. Pt placed on 2 L/min enroute and given duo neb. TECHNIQUE: 1 radiographic view(s) of the chest. COMPARISON: 11/07/2021 FINDINGS: LUNGS: No focal opacity, pleural effusion, or pneumothorax.Redemonstrated calcified granuloma in the left upper lobe. HEART/MEDIASTINUM: Cardiac silhouette normal in size. Mediastinal andhilar contours appear normal. LINES/TUBES: None. BONES: No acute osseous abnormality. IMPRESSION: No acute cardiopulmonary abnormality. THIS IS AN ELECTRONICALLY VERIFIED FINAL REPORT 02/10/2024 6:41 PM - Electronically signed by Felix Badillo M.D. KR: LAURA Report ID: [id number] Reading Location: [id number] Joleen LOPEZ IMG XR PROCEDURES Final R esult * Troponin T high-sensitivity 2-hour (02/10/2024 6:24 PM TANK HOUSE SUPERVISOR) Trop T hs 11 <=14 ng/L Comment: Interpretive Data For further hscTnT resources including the diagnostic algorithm and an aid in interpretation, copy and paste this link: https://nrl.testcatalog.org/show/hsTrop Current Interpretive Data last revised 2020. Trop T hs delta 1 ng/L [facility] ([place]) Trop T hs interp Insignificant [facility] ([place]) Blood 02/10/2024 6:24 PM TANK HOUSE SUPERVISOR 02/10/2024 6:31 PM TANK HOUSE SUPERVISOR Joleen LOPEZ LAB BLOOD ORDERABLES Alice salazar Result REJI PAR[facility]) 1 [facility] Department [place] [address] * Blood culture Blood Peripheral (02/10/2024 6:24 PM TANK HOUSE SUPERVISOR) Report Final Report: No growth Comment:Testing performed by : [facility], [address] [place]., [address] Blood (Peripheral) 02/10/2024 6:24 PM TANK HOUSE SUPERVISOR 02/10/2024 11:47 PM TANK HOUSE SUPERVISOR Narrative REJI PARISI) - 02/15/2024 7:00 AM TANK HOUSE SUPERVISOR From a different site than #1. Draw Blood cultures before administration of Antibiotics Collection->Peripheral Received two aerobic blood culture bottles 1. ?Blood cultures are incubated for 4 days on a continuously monitored blood culture system. The first report of a negative culture is issued within 24 hours of receipt of the specimen in the laboratory. 2. ?Positive culture results are reported as soon as they are detected. 3. ?The most important factor for detection of microbes in the setting of bloodstream infection is the volume of blood submitted for culture. Failure to collect an optimal blood volume can result in false negative blood cultures. For pediatric patients, the recommended blood volume to collect is 1 mL of blood per year of patient age (up to 20 mL) per blood culture set. For adult patients, 20 mL of blood, divided equally between aerobic and anaerobic blood culture bottles, is recommended for each blood culture set. 4. ?For blood cultures with Gram-positive cocci, a rapid molecular test for organism identification may be performed using the [employer] Gram-Positive Blood Culture Assay. This assay detects microbial DNA in positive blood culture broth via hybridization of target DNA to capture oligonucleotides on a microarray. This assay has been cleared by the [place] Food and Drug Administration and its performance characteristics have been verified by the [facility]. 5. ?For questions about this culture, contact the Microbiology Laboratory at [phone]. Interpretive data was last revised on 2019. Joleen LOPEZ LAB MICROBIOLOGY - GENERA L ORDERABLES Final Result REJI PARISI) 1 [facility] Department [place] [address] * Blood culture Blood Peripheral (02/10/2024 6:24 PM TANK HOUSE SUPERVISOR) Report Final Report: No growth Comment:Testing performed by : [facility], [address] [place]., [address] Blood (Peripheral) 02/10/2024 6:24 PM TANK HOUSE SUPERVISOR 02/10/2024 11:47 PM TANK HOUSE SUPERVISOR Narrative REJI PARISI) - 02/15/2024 7:00 AM TANK HOUSE SUPERVISOR Draw Blood cultures before administration of Antibiotics Collection->Peripheral Received two anaerobic blood culture bottles 1. ?Blood cultures are incubated for 4 days on a continuously monitored blood culture system. The first report of a negative culture is issued within 24 hours of receipt of the specimen in the laboratory. 2. ?Positive culture results are reported as soon as they are detected. 3. ?The most important factor for detection of microbes in the setting of bloodstream infection is the volume of blood submitted for culture. Failure to collect an optimal blood volume can result in false negative blood cultures. For pediatric patients, the recommended blood volume to collect is 1 mL of blood per year of patient age (up to 20 mL) per blood culture set. For adult patients, 20 mL of blood, divided equally between aerobic and anaerobic blood culture bottles, is recommended for each blood culture set. 4. ?For blood cultures with Gram-positive cocci, a rapid molecular test for organism identification may be performed using the [employer] Gram-Positive Blood Culture Assay. This assay detects microbial DNA in positive blood culture broth via hybridization of target DNA to capture oligonucleotides on a microarray. This assay has been cleared by the [place] Food and Drug Administration and its performance characteristics have been verified by the [facility]. 5. ?For questions about this culture, contact the Microbiology Laboratory at [phone]. Interpretive data was last revised on 2019. Joleen LOPEZ LAB MICROBIOLOGY - GENERA L ORDERABLES Final Result Performing Organization Address City/[facility]/ZIP Co de Phone Number REJI McclainTOVEY) 1 [facility] [place] [address] * Influenza A/B, RSV, and COVID-19 PCR Nasopharyngeal (02/10/2024 5:47 PM TANK HOUSE SUPERVISOR) Pathologist [facility] COVID-19 RNA Negative Negative Influenza A RNA Negative Negative [facility] ([place]) Influenza B RNA Negative Negative [facility] ([place]) RSV RNA Negative Negative [facility] ([place]) Comment: Interpretive data: Testing performed by [facility]. This test is performed using the [employer] Xpert Xpress CoV-2/Flu/RSV plus assay. This is a multiplex, real- time reverse transcriptase PCR assay intended for the qualitative detection of nucleic acid from SARS-CoV-2, influenza A, influenza B, and respiratory syncytial virus. This assay has been cleared by the [place] Food and Drug administration. The performance characteristics have been verified by the [facility]. ?? Results must be considered in the clinical context, and a negative result does not rule out infection. Interpretive Data last revised 2023 Nasopharyngeal 02/10/2024 5: 47 PM TANK HOUSE SUPERVISOR 02/10/2024 5:52 PM TANK HOUSE SUPERVISOR Narrative [facility] ([place]) - 02/10/2024 6:33 PM TANK HOUSE SUPERVISOR Is the Patient experiencing symptoms consistent with COVID?->Yes Joleen LOPEZ LAB MICROBIOLOGY - GENERA L ORDERABLES Final Result REJI CHAMBERS ([place]) 1 [facility] [place] [address] * (ABNORMAL) Sepsis Lactate w/ Reflex (02/10/2024 5:47 PM TANK HOUSE SUPERVISOR) Pathologist [facility] Sepsis Lactate 3.7(H) 0.7 - 2.0 mmol/L Blood 02/10/2024 5:47 PM TANK HOUSE SUPERVISOR 02/10/2024 5:52 PM TANK HOUSE SUPERVISOR Joleen LOPEZ LAB BLOOD ORDERABLES Alice l Result Performing Organization Address [facility] Co de Phone Number REJI CHAMBERS ([place]) 1 [facility] [place] [address] * Blood gas, venous (02/10/2024 5:47 PM TANK HOUSE SUPERVISOR) pH, Venous 7.39 7.32 - 7.43 PCO2, Venous 42 40 - 50 mmHg [facility] ([place]) PO2, Venous 68 mmHg [facility] ([place]) HCO3 Venous, Calculated 25 20 - 30 mmol/L [facility] ([place]) BE, venous 0 mmol/L [facility] ([place]) Comment: Interpretive Data No Reference Range Established Current Interpretive Data was last revised on 2017. Blood 02/10/2024 5:47 PM TANK HOUSE SUPERVISOR 02/10/2024 5:52 PM TANK HOUSE SUPERVISOR Joleen LOPEZ LAB BLOOD ORDERABLES Alice l Result Performing Organization Address [facility] de Phone Number REJI CHAMBERS ([place]) 1 [facility] [place] [place] [address] * Troponin T high-sensitivity series (baseline, 2hr, 4hr, 6hr) (02/10/2024 4:50 PM TANK HOUSE SUPERVISOR) Trop T hs 10 <=14 ng/L Comment: Interpretive Data For further hscTnT resources including the diagnostic algorithm and an aid in interpretation, copy and paste this link: https://nrl.testcatalog.org/show/hsTrop Current Interpretive Data last revised 2020. Blood 02/10/2024 4:50 PM TANK HOUSE SUPERVISOR 02/10/2024 5:30 PM TANK HOUSE SUPERVISOR Joleen LOPEZ LAB BLOOD ORDERABLES Alice l Result Performing Organization Address City/[facility]/ZIP Co de Phone Number REJI CHAMBERS ([place]) [address] Department [place] [address] * eGFR (02/10/2024 4:50 PM TANK HOUSE SUPERVISOR) [facility] eGFR 83 >=60 mL/min/1. 73 m2 Comment: Interpretive Data Reference Interval Normal ?>/= 90 mL/min/1.73m2 Mildly decreased* ? 60 - 89 mL/min/1.73m2 Mildly to moderately decreased ?45 - 59 mL/min/1.73m2 Moderately to severely decreased ??30 - 44 mL/min/1.73m2 Severely decreased ?15 - 29 mL/min/1.73m2 Kidney Failure ?< 15 ??mL/min/1.73m2 *Relative to young adult level Estimated glomerular filtration rate is determined by the 2020 CKD-EPI equation recommended by the National Kidney Foundation (A Unifying Approach to GFR Estimation: Recommendations of the NKF-ASK Task Force on Reassessing the Inclusion of Race in Diagnosing Kidney Disease, JASN 2020). The CKD-EPI equation should not be used for patients with unstable renal function and has not been validated in children and those over 70. Current interpretive data was last reviewed 2021. Blood 02/10/2024 4:50 PM TANK HOUSE SUPERVISOR 02/10/2024 5:30 PM TANK HOUSE SUPERVISOR us Joleen LOPEZ LAB BLOOD ORDERABLES Alice l Result RE[facility] ([place]) 1 [facility] Department [place] [address] * (ABNORMAL) Differential, auto (02/10/2024 4:50 PM TANK HOUSE SUPERVISOR) [facility] Neutrophil abs 13.8(H) 1.5 - 6.5 K/cumm Imm gran abs 0.1 0.0 - 0.1 K/cumm [facility] ([place]) Lymphocyte abs 0.4(L) 0.8 - 3.3 K/cumm [facility] ([place]) Monocyte abs 0.8 0.2 - 0.8 K/cumm [facility] ([place]) Eosinophil abs 0.0 0.0 - 0.5 K/cumm [facility] ([place]) Basophil abs 0.0 0.0 - 0.1 K/cumm [facility] ([place]) Neutrophil pct 92.4 % [facility] ([place]) Comment: Consistent with previous result Interpretive Data Percent cell count reference ranges are not reported, since discordance with absolute values may lead to misinterpretation of CBC data. Current Interpretive Data was last revised on 2017. Imm gran pct 0.4 % [facility] ([place]) Comment: Interpretive Data Percent cell count reference ranges are not reported, since discordance with absolute values may lead to misinterpretation of CBC data. Current Interpretive Data was last revised on 2017. Lymphocyte pct 2.7 % [facility] ([place]) Comment: Interpretive Data Percent cell count reference ranges are not reported, since discordance with absolute values may lead to misinterpretation of CBC data. Current Interpretive Data was last revised on 2017. Monocyte pct 5.1 % [facility] ([place]) Comment: Interpretive Data Percent cell count reference ranges are not reported, since discordance with absolute values may lead to misinterpretation of CBC data. Current Interpretive Data was last revised on 2017. Eosinophil pct 0.3 % [facility] ([place]) Comment: Interpretive Data Percent cell count reference ranges are not reported, since discordance with absolute values may lead to misinterpretation of CBC data. Current Interpretive Data was last revised on 2017. Basophil pct 0.2 % [facility] ([place]) Comment: Interpretive Data Percent cell count reference ranges are not reported, since discordance with absolute values may lead to misinterpretation of CBC data. Current Interpretive Data was last revised on 2017. Blood 02/10/2024 4:50 PM TANK HOUSE SUPERVISOR 02/10/2024 5:30 PM TANK HOUSE SUPERVISOR us Joleen LOPEZ LAB BLOOD ORDERABLES Alice salazar Result [facility] ([place]) 4 [facility] Department [place] [address] * (ABNORMAL) Pro B-type natriuretic peptide (02/10/2024 4:50 PM TANK HOUSE SUPERVISOR) NT-proBNP 976(H) <=300 pg/mL Comment: Interpretive Comments: A. Dyspnea in Acute Care Setting All Ages: ?< 300 pg/ml, acute heart failure unlikely. < 50 yrs: ?300 - 450 pg/ml, further investigation warranted. ? > 450 pg/ml, acute heart failure likely. 50 - 74 yrs: ? 300 - 900 pg/ml, further investigation warranted. ? > 900 pg/ml, acute heart failure likely . > or = 75 yrs: ? 450 - 1800 pg/ml, further investigation warranted. ? > 1800 pg/ml, acute heart failure likely. B. Non-acute Setting < 75 yrs ? < 125 pg/ml, rules out heart failure. ? > or = 125 pg/ml, further investigation warranted. > or = 75 yrs ?< 450 pg/ml, rules out heart failure. ? > or = 450 pg/ml, further investigation warranted. - Knowledge of each individual patient's NT-proBNP range may be more useful than using similar cut-points for every patient. Please note that marked elevations in NT-proBNP levels may be observed in state other than Left Ventricular Congestive Failure, including: acute coronary syndromes, right heart strain/failure (including pulmonary embolism and cor pulmonale), critical illness, renal failure, as well as advanced age. - References: 1. Tim SALOMON et.al. Eur Heart J. 2006:27:330-337. 2. Darien RW, Zahra AM. J. AM Lizbeth Cardiol: Cardiovasc Imag. 2009;2: 216- 225. Interpretive Data Last Revised Date: 2017. Blood 02/10/2024 4:5 0 PM TANK HOUSE SUPERVISOR 02/10/2024 5:30 PM TANK HOUSE SUPERVISOR Joleen LOPEZ LAB BLOOD ORDERABLES Alice salazar Result [facility] ([place]) 1 [facility] Department [place] [address] * (ABNORMAL) CBC with auto differential (02/10/2024 4:50 PM TANK HOUSE SUPERVISOR) WBC 15.1(H) 3.8 - 9.9 K/cumm Hgb 11.2(L) 11.9 - 15.5 g/dL [facility] ([place]) Hct 40.2 35.6 - 45.5 % [facility] ([place]) Plt 365 150 - 400 K/cumm [facility] ([place]) MPV 10.1 9.1 - 12.3 fL [facility] ([place]) RBC 4.18 3.90 - 5.20 M/cumm [facility] ([place]) MCV 96.2 81.3 - 96.4 fL [facility] ([place]) MCH 26.8(L) 27.1 - 33.3 pg [facility] ([place]) MCHC 27.9(L) 32.3 - 35.7 g/dL [facility] ([place]) RDW CV 18.2(H) 11.1 - 14.9 % [facility] ([place]) RDW SD 63.8(H) 35.7 - 48.1 fL [facility] ([place]) NRBC abs 0.08(H) 0.00 - 0.01 K/cumm [facility] ([place]) Blood 02/10/2024 4:50 PM TANK HOUSE SUPERVISOR 02/10/2024 5:30 PM TANK HOUSE SUPERVISOR Joleen LOPEZ LAB BLOOD ORDERABLES Alice l Result REJI CLEANINGN) 1 [facility] [place] [address] * D-dimer, quantitative (02/10/2024 4:50 PM TANK HOUSE SUPERVISOR) D-Dimer <215 <=499 ng/mL FEU REJI CHAMBERS ([place]) Comment: Interpretive data FDA approved the D-dimer, in conjunction with a low or moderate pretest probability score, to exclude venous thromboembolic events (VTE) (PE and DVT) in outpatients when the D-dimer result is < 500 ng/ml FEU. ?? Evidence supports using an age-adjusted D-dimer cut-off for outpatients older than 50 (age x 10) to improve specificity without sacrificing sensitivity. Example: age 68, VTE cut-off 680 ng/ml FEU. References; Schouten HT et al. Brit Med J. 2013;346:f2492. Kierra RICHARDS et al. Annals Int Med. 2015;163:701-11. Current interpretive data was last revised on 2019. Blood 02/10/2024 4:50 PM TANK HOUSE SUPERVISOR 02/10/2024 5:30 PM TANK HOUSE SUPERVISOR Joleen LOPEZ LAB BLOOD ORDERABLES Alice l Result REJI CHAMBERS ([place]) 1 [facility] [place] [address] * (ABNORMAL) Comprehensive metabolic panel (02/10/2024 4:50 PM TANK HOUSE SUPERVISOR) Sodium 138 135 - 145 mmol/L Potassium, pl 4.3 3.3 - 4.9 mmol/L REJI CHAMBERS ([place]) Comment:Slightly Hemolyzed S pecimen. Results may be affected. Chloride 99 97 - 110 mmol/L REJI CHAMBERS ([place]) CO2 22 22 - 32 mmol/L [facility] ([place]) Anion gap 17(H) 2 - 15 mmol/L [facility] ([place]) BUN 17 6 - 25 mg/dL [facility] ([place]) Creatinine 0.77 0.60 - 1.10 mg/dL [facility] ([place]) Glucose 186 70 - 199 mg/dL [facility] ([place]) Comment: Interpretive Data Fasting glucose >/= 126 mg/dl is diagnostic for diabetes. ?? Fasting is defined as no caloric intake for at least 8 hours. Fasting glucose between 100 mg/dl to 125 mg/dl is diagnostic of prediabetes. In a patient with classic symptoms of hyperglycemia or hyperglycemic crisis, a random glucose >/= 200 mg/dl is diagnostic for diabetes. In the absence of unequivocal hyperglycemia, results should be confirmed by repeat testing. The classification and Diagnosis of Diabetes Diabetes Care 2021; 46: S19-S40. Current interpretive data was last revised 2022. Calcium 10.4(H) 8.5 - 10.3 mg/dL [facility] ([place] Bilirubin, total 0.5 0.1 - 1.2 mg/dL [facility] ([place]) Protein, pl 8.5 6.5 - 8.5 g/dL [facility] ([place]) Albumin 4.5 3.5 - 5.0 g/dL [facility] ([place]) Alk phos 111 40 - 130 Units/L [facility] ([place]) ALT 21 7 - 45 Units/L [facility] ([place]) Comment:Hemolysis present. R esults may be affected. AST 40 10 - 45 Units/L [facility] ([place]) Comment: Hemolysis present. ??Results may be affected. Slightly Hemolyzed Specimen Blood 02/10/2024 4:50 PM TANK HOUSE SUPERVISOR 02/10/2024 5:30 PM TANK HOUSE SUPERVISOR us Joleen LOPEZ LAB BLOOD ORDERABLES Alice salazar Result [facility] ([place]) 1 [facility] Department [place] [address] * ECG 12 lead (02/10/2024 4:43 PM TANK HOUSE SUPERVISOR) 02/10/2024 4:43 PM TANK HOUSE SUPERVISOR Narrative [facility] - 02/12/2024 2:28 PM TANK HOUSE SUPERVISOR Vent Rate: 111 bpm RR Interval: 539 msec NH Interval: 119 msec QRS Duration: 82 msec QT Interval: 320 msec QTC Interval: 385 msec P-R-T Thicket: 54 - 68 - 54 degrees IMPRESSION: SINUS TACHYCARDIA WITH SHORT NH INTERVAL ABNORMAL RHYTHM ECG No change compared to prior EKG Electronically Signed By: Thang Daly MD B us Joleen LOPEZ ECG ORDERABLES Final Res ult [facility] [place] from Last 3 Months Additional Health Concerns Infection Onset Date Last 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
--- OUTSIDE RECORDS SUMMARY | 2024-04-16 12:01 | XMS_ITS | CONTINUITY OF CARE DOCUMENT ---
Author Name soilaailynbronson Address Unknown Organization [facility] Address [address] [place] [address] Phone [phone] Care Team Providers Care Medical Clinic Manager Name Role Phone Jensen SCOTT, Kevan Unavailable DESEAN SCOTT, EVERETTE Unavailable INSURANCE PROVIDERS Payer name Policy type / Coverage type [place] red republican ID [employer] Commercial insurance [facility] [id number]
--- OUTSIDE RECORDS SUMMARY | 2024-04-16 12:01 | XMS_ITS | Referral Summary ---
Author Organization [facility] Address [address] [place] [address] Care Team Providers Care Automation Test Developer Name Role Phone Fernando Rucker MD Primary Care Provider [phone] Source Comments [facility],non-owned Affiliates and Associated Physician Practices is amultiple site organization consisting of ambulatory clinics and hospital sitesin [place], [place], [place] and [place]. This disclosure is being madepursuant to the Care Everywhere program and may not contain all information available regarding this patient. Last updated 17.[facility] Allergies Active Allergy Reactions Criticality Noted Date Comments Metoclopramide Unknown 08/29/2023 Nalbuphine Itching 05/11/2015 Prochlorperazine Itching,Palpitations 6 Chest tightness Promethazine Itching 05/11/2015 Sumatriptan Rash Medium 08/29/2023 Medications * Be aware that medications may not be up to date on this document. Alwaysverify current medications with the patient. Medication Sig Dispensed Refills Start Date End Date Status albuterol (Proventil;Ventolin ) (2.5 MG/3ML) 0.083% nebulizer solution Inhale 2.5 (two and one-half) mg by mouth every 4 hours as needed Active albuterol HFA (Proventil; Ventolin; Proair) 108 (90 Base) MCG/ACT inhaler Inhale 2 (two) puffs by mouth every 4 hours as needed 05/12/2023 Active amitriptyline (Elavil) 10 MG tablet Take 2 (two) tablets by mouth at bedtime 05/11/2023 Active apixaban (Eliquis) 5 MG tablet Take 1 (one) tablet by mouth 2 times daily Active atorvastatin (Lipitor) 10 MG tablet Take 1 (one) tablet by mouth once daily 06/17/2023 Active butalbital-acetamin ophen-caffeine (Fioricet) 50-325-40 MG tablet Take 1 (one) tablet by mouth every 4 hours as needed FOR MIGRAINE 07/17/2023 Active cyanocobalamin (Vitamin B-12) injection ADMINISTER 1 ML UNDER THE SKIN MONTHLY 08/14/2023 Active vitamin D, ergocalciferol, (Drisdol) 1.25 MG (50125 UT) capsule Take 1 (one) capsule by mouth 08/07/2023 Active famotidine (Pepcid) 20 MG tablet Take 2 (two) tablets by mouth once daily as needed Active Bevespi Aerosphere 9-4.8 MCG/ACT inhaler Inhale 2 (two) puffs by mouth 2 times daily 05/11/2023 Active HYDROcodone-acetami nophen ([place]) 7.5-325 MG tablet Take 1 (one) tablet by mouth every 6 hours as needed Active ibuprofen (Motrin) 200 MG tablet Take 1 (one) tablet by mouth Active lisinopril (Prinivil; Zestril) 30 MG tablet Take 1 (one) tablet by mouth once daily Active Loperamide (Imodium) 2 MG tablet Take 1 (one) tablet by mouth Active BD Integra Syringe 25G X 1 3 ML MISC USE TO INJECT B12 ONCE MONTHLY 01/28/2023 Active predniSONE (Deltasone) 5 MG tablet Take 1 (one) tablet by mouth once daily Active pantoprazole EC (Protonix) 40 MG tablet Take 1 (one) tablet by mouth every morning 09/03/2023 Active ondansetron (Zofran) 8 MG tablet Take 1 (one) tablet by mouth every 8 hours as needed 01/31/2023 Active metoprolol succinate XL 24hr (Toprol XL) 50 MG tablet Take 1 (one) tablet by mouth once daily 04/08/2023 Active hydroCHLOROthiazide (Hydrodiuril) 25 MG tablet Take 1 (one) tablet by mouth once daily 90 tablet 4 09/08/2023 Active Additional Information Patient not taking.Reported on 12/08/2023 Immunizations Name Administration Dates Next Due TDAP (7yrs+) 08/24/2023 Social History Tobacco Use Types Packs/Day Years Used Date Smoking Tobacco: Never Smokeless Tobacco: Never Sex and Gender Information Value Date Recorded Sex Assigned at Not on file Gender Identity Not on file Sexual Orientation Not on file Last Filed Vital Signs Vital Sign Reading Time Taken Comments Blood Pressure 126/71 12/08/2023 1:23 PM CDT Pulse 75 12/08/2023 1:23 PM CDT Temperature - - Respiratory Rate - - Oxygen Saturation 96% 12/08/2023 1:23 PM CDT Inhaled Oxygen Concentration - - Weight 67.6 kg (149 lb) 12/08/2023 1:23 PM CDT Height 157.5 cm (5' 2 ) 12/08/2023 1:23 PM CDT Body Mass Index 27.25 12/08/2023 1:23 PM CDT Plan of Treatment Upcoming Encounters Date Type Department Care Team (Late st Contact Info) Description 05/31/2024 1:30 PM CDT Office Visit [facility] - Cardiology [address] [place] [address] Perez Yung MD [address] [place] [address] Care Teams Automation Test Developer Relationship Specialty Start Date End Date Fernando Rucker MD [address] [place] [address] [phone] (work) PCP - General Family Medicine 12/04/23
--- OUTSIDE RECORDS SUMMARY | 2024-04-16 12:01 | XMS_ITS | Clinical Summary ---
Author Organization [facility] Address [address] [place] [address] Phone Care Team Providers Care Supervisor Cook Room Name Role Phone Fernando Rucker MD Primary Care Provider Sylvester Graves MD Unavailable [phone] Allergies Active Allergy Reactions Criticality Noted Date Comments Prochlorperazine Maleate Other (see Comments) 05/11/2015 Chest tightness Metoclopramide Unknown 08/29/2023 Nalbuphine Itching 08/29/2023 Nalbuphine Hcl Itching 05/11/2015 Promethazine Hcl Itching 05/11/2015 Prochlorperazine Itching 08/29/2023 Promethazine Itching 08/29/2023 Sumatriptan Rash 08/29/2023 Medications cyanocobalamin (VITAMIN B-12) 1000 MCG/ML Solution 1 mL by Intramuscular route every 30 days. 4 016 Active polyethylene glycol (MIRALAX) Powder Mix the entire bottle with 64 oz of a clear liquid. Use as directed by the office for colonoscopy prep. 255 g 0 016 Active Additional Information Patient not taking.Reported on 10/14/2023 albuterol 108 (90 Base) MCG/ACT Aerosol Solution take 2 Puffs by inhalation every 4 hours as needed. 024 Active amitriptyline (ELAVIL) 10 MG Tablet Take 2 Tablets by mouth nightly. 024 Active busPIRone (BUSPAR) 10 MG Tablet Take 10 mg by mouth 2 times daily. Active Bevespi Aerosphere 9-4.8 MCG/ACT Aerosol take 2 Puffs by inhalation 2 times daily. Active ondansetron (ZOFRAN) 8 MG Tablet Take 8 mg by mouth every 8 hours as needed. Active Vitamins-Lipotr opics (LIPO FLAVONOID PLUS PO) Take 2 Capsules by mouth 3 times daily as needed (ear ringing). Active Loperamide HCl (Imodium A-D) 2 MG Tablet Take 2 mg by mouth 4 times daily as needed for Diarrhea. Active atorvastatin (LIPITOR) 10 MG Tablet Take 1 Tablet by mouth daily. 90 Tablet 3 Active Ergocalciferol (VITAMIN D2 PO) Take 1 Capsule by mouth once a week. 50,000 IU Active albuterol (PROVENTIL, VENTOLIN) (2.5 MG/3ML) 0.083% Nebulizer Soln 1 Vial by Nebulization route every 4 hours as needed for Shortness of Breath. Active HYDROcodone-rafaela taminophen (NORCO) 7.5-325 MG Tablet Take 1 Tablet by mouth every 6 hours as needed for Moderate or more severe pain. Active famotidine (Zantac [address]) 20 MG Tablet Take 2 Tablets by mouth daily as needed for Heartburn. Do not exceed 2 tablets in one day Active pantoprazole (PROTONIX) 40 MG Tablet Delayed Response Take 1 Tablet by mouth every morning. Active hydroCHLOROthia zide 25 MG Tablet Take 1 Tablet by mouth daily. Hold if systolic BP <100 Active apixaban (Eliquis) 5 MG TabletIndicatio ns:Atrial Fibrillation Take 1 Tablet by mouth 2 times daily. Indications: Atrial Fibrillation 60 Tablet 3 Active Ferrous Sulfate 325 (65 Fe) MG Tablet Delayed Response Take 1 Tablet by mouth daily. Active predniSONE (DELTASONE) 5 MG Tablet Take 5 mg by mouth daily. rx # [id number] Active buPROPion (WELLBUTRIN) 150 MG XL tablet Active buPROPion (WELLBUTRIN) 150 MG XL tablet Take 150 mg by mouth every morning. Active butalbital-acet aminophen-caffe ine (FIORICET, ESGIC) 50-325-40 MG TabletIndicatio ns:Intractable migraine without aura and without status migrainosus TAKE 1 TABLET BY MOUTH EVERY 6 HOURS NEEDED FOR MIGRAINE HEADACHE 10 Tablet 025 Active metoprolol Succinate (TOPROL-XL) 50 MG TABLET SR 24 HR Take 50 mg by mouth daily. 024 2024 butalbital-acet aminophen-caffe ine (FIORICET, ESGIC) 50-325-40 MG TabletIndicatio ns:Intractable migraine without aura and without status migrainosus TAKE 1 TABLET BY MOUTH EVERY 6 HOURS NEEDED FOR MIGRAINE HEADACHE 10 Tablet 024 2024 Discontinued Active Problems Problem Noted Date Diagnosed Date Acute cystitis without hematuria 08/28/2023 Gait disturbance 08/28/2023 Acute metabolic encephalopathy 08/28/2023 Frequent falls 08/27/2023 TIA (transient ischemic attack) 05/26/2023 CVA (cerebral vascular accident) 05/19/2023 Paroxysmal atrial fibrillation 05/19/2023 Hypertension 05/19/2023 Migraines 05/19/2023 COPD (chronic obstructive pulmonary disease) 07/2023 Gout 05/19/2023 Anxiety and depression 05/19/2023 Metatarsalgia, left foot 11/26/2016 Pain of left foot 11/26/2016 [place] or callus 11/26/2016 Fracture, stress, metatarsal 09/26/2015 Resolved Problems Problem Noted Date Diagnosed Date Resolved Date Acute kidney injury 05/19/2023 05/21/19 Hypokalemia 05/19/2023 05/21/2023 Leukocytosis 05/19/2023 05/21/2023 Encounters Date Type Department Care Team Description 03/31/2024 [facility] [place] [address] [place] [address] Sylvester Graves MD Medication Refill 03/01/2024 [facility]ill [facility] [place] [address] [place] [address] Sylvester Graves MD Medication Refill 02/09/2024 7:03 PM WORKERS' COMPENSATION CLAIMS SUPERVISOR - 02/09/2024 9:55 PM WORKERS' COMPENSATION CLAIMS SUPERVISOR Emergency [facility] Emergency [address] [facility] [place] [address] Bruce Castillo MD COPD with acute exacerbation (HCC) Discharge Disposition: Discharged to home or Selfcare 02/09/2024 Travel from Last 3 Months Immunizations Immunization Administration Dates Next Due TDAP Vaccine 08/24/2023 Family History Medical History Relation Name Comments Leukemia/Lymphoma Brother lymphoma Cancer Father brain cancer High Cholesterol Maternal Aunt Diabetes Mother Hypertension Mother Other-comment Mother A-fib, brain b leed due to fall Rheumatoid Arthritis Mother Thyroid Disease Mother Uterine Cancer Mother Relation Name Status Comments Brother Father Maternal Aunt Mother Alive Social History Tobacco Use Types Packs/Day Years Used Date Smoking Tobacco: Never Smokeless Tobacco: Never Tobacco Cessation:Counseling Given: Not Answered Alcohol Use Standard Drinks/Week Comments Yes 0 (1 standard drink = 0.6 oz pur e alcohol) 1 glass of wine a month [facility] Utilities Answer Date Recorded In the past 12 months has [employer], [employer], oil, or water [employer] threatened to shut off services in your home? No 08/28/2023 Social Connection and Isolat ion Panel [NHANES] Answer Date Recorded In a typical week, how many times do you talk on the phone with family, friends, or neighbors? More than three times a week 05/19/2023 How often do you get togethe r with friends or relatives? Once a week 05/19/2023 How often do you attend chur or sabianist services? Never 05/19/2023 Do you belong to any clubs o r organizations such as christian groups, unions, fraternal or athletic groups, or school groups? Yes 05/19/2023 How often do you attend meet ings of the clubs or organizations you belong to? Never 05/19/2023 Are you , , di vorced, , never , or living with a partner? 05/19/2023 AUDIT-C Answer Date Recorded Q1: How often do you have a drink containing alcohol? Never 05/19/2023 Q2: How many drinks containi ng alcohol do you have on a typical day when you are drinking? Patient does not drink Q3: How often do you have si x or more drinks on one occasion? Never 05/19/2023 Overall Financial Resource Strain (CARDIA) Answe r Date Recorded How hard is it for you to pa y for the very basics like food, housing, medical care, and heating? Not hard at all 05/19/2023 [facility] - Occupational Stress Questionnaire Answer Date Recorded Do you feel stress - tense, restless, nervous, or anxious, or unable to sleep at night because your mind is troubled all the time - these days? To some extent 05/19/2023 Exercise Vital Sign Answer Date Recorde d On average, how many days pe r week do you engage in moderate to strenuous exercise (like a brisk walk)? 0 days 05/19/2023 On average, how many minutes do you engage in exercise at this level? 0 min 05/19/2023 Hunger Vital Sign Answer Date Recorded Within the past 12 months, y ou worried that your food would run out before you got the money to buy more. Never true 08/28/19 24 Within the past 12 months, t he food you bought just didn't last and you didn't have money to get more. Never true 08/28/2023 [facility] - Transportation Answer Date Re corded In the past 12 months, has l ack of transportation kept you from medical appointments or from getting medications? No 08/14 In the past 12 months, has l ack of transportation kept you from meetings, work, or from getting things needed for daily living? No 08/28/2023 Housing Stability Vital Sign Answer Gm e Recorded In the last 12 months, was t here a time when you were not able to pay the mortgage or rent on time? No 05/19/2023 In the last 12 months, how many places have you lived? 1 05/19/2023 In the last 12 months, was t here a time when you did not have a steady place to sleep or slept in a mcfp (including now)? No 05/19/2023 Housing Stability Vital Sign Answer Gm e Recorded In the last 12 months, was t here a time when you were not able to pay the mortgage or rent on time? No 08/28/2023 In the past 12 months, how m any times have you moved where you were living? 1 08/28/2023 At any time in the past 12 m [facility], were you homeless or living in a mcfp (including now)? No 08/28/2023 Sexually Active Control Partners Comments Not Currently Comments No Sex and Gender Information Value Date Recorded Sex Assigned at Not on file Legal Sex Female 9:54 PM CDT Gender Identity Not on file Sexual Orientation Not on file Occupation Industry Job Start Date 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 Not on file Not on file Not on file Last Filed Vital Signs Vital Sign Reading Time Taken Comments Blood Pressure 175/78 02/09/2024 8:15 PM WORKERS' COMPENSATION CLAIMS SUPERVISOR Pulse 116 02/09/2024 8:15 PM WORKERS' COMPENSATION CLAIMS SUPERVISOR Temperature 36.8 ??C (98.2 ??F) 02/09/2024 6:08 PM CS T Respiratory Rate 22 02/09/2024 9:09 PM WORKERS' COMPENSATION CLAIMS SUPERVISOR Oxygen Saturation 95% 02/09/2024 8:15 PM WORKERS' COMPENSATION CLAIMS SUPERVISOR Inhaled Oxygen Concentration - - Weight 57.6 kg (127 lb) 02/09/2024 6:08 PM WORKERS' COMPENSATION CLAIMS SUPERVISOR Height 157.5 cm (5' 2 ) 02/09/2024 6:08 PM WORKERS' COMPENSATION CLAIMS SUPERVISOR Body Mass Index 23.23 02/09/2024 6:08 PM WORKERS' COMPENSATION CLAIMS SUPERVISOR Plan of Treatment Upcoming Encounters Date Type Department Care Team (Late st Contact Info) Description 12/20/2024 10:00 AM CDT Office Visit [facility] [address] [place] [address] Angela Ferrara, REINFORCING IRON WORKER HELPER, SUPERVISOR SCREEN MAKING [address] [place] [address] Health Maintenance Due Date Last Done Comments Pneumococcal Immunization (50+ years) (1 of 2 - PCV) 1973 Cologuard 2004 Immunochemical Fecal Occult Blood 2004 Zoster Immunization (1 of 2) 2004 Respiratory Syncytial Virus (RSV) Immunization (Adult) (1 - Risk 60-74 years 1-dose series) 2014 DEXA Bone Density 10/15/2017 10/16/2015 Influenza Immunization (#1) 11/15/202312/14, 12/29/2019, 12/14/2018, Additional history exists SARS-COV-2 Immunization ( season) 2023 05/18/2020, 04/27/2020 Mammogram 03/19/2024 03/19/2022, 11/0 04/2020, 12/26/2019, Additional history exists Colonoscopy 03/21/2026 03/21/2016 Colorectal Cancer Screening 03/21/2026 Td Immunization Every 10 Years (Adults With 1 Tdap) 08/23/2033 08/24/2023 03/21/2016 Hepatitis C Virus (HCV) Screening Completed 01/09/2018 DTaP/Tdap/Td Immunization Discontinued 08/24/2023 TdaP Immunization Discontinued 08/24/2023 Hepatitis B Immunization Aged Out No longer eligible based on patient's age to complete this topic Meningococcal Immunization (ACWY) Aged Out No longer eligible based on patient's age to complete this topic Rotavirus Immunization Aged Out No lo nger eligible based on patient's age to complete this topic Procedures Procedure Name Priority Date/Time Associated Diagnosis Comments AEROSOL NEBULIZER-SUBSEQUENT STAT 02/09/2024 9:10 PM WORKERS' COMPENSATION CLAIMS SUPERVISOR CBC WITH AUTO DIFFERENTIAL STAT 02/09/2024 8:38 PM WORKERS' COMPENSATION CLAIMS SUPERVISOR COMPLETE BLOOD COUNT (CBC) WITH DIFF STAT 02/09/2024 8:38 PM WORKERS' COMPENSATION CLAIMS SUPERVISOR AEROSOL NEBULIZER-INITIAL STAT 02/09/2024 8:04 PM WORKERS' COMPENSATION CLAIMS SUPERVISOR TROPONIN I, HIGH SENSITIVITY (HSTRP) STAT 02/09/2024 7:32 PM WORKERS' COMPENSATION CLAIMS SUPERVISOR RSV,SARS-COV-2,INFLU SAEID A&B BY PCR STAT 02/09/2024 7:22 PM WORKERS' COMPENSATION CLAIMS SUPERVISOR XR CHEST 2 VIEWS STAT 02/09/2024 6:34 PM WORKERS' COMPENSATION CLAIMS SUPERVISOR TROPONIN I, HIGH SENSITIVITY (HSTRP) STAT 02/09/2024 6:24 PM WORKERS' COMPENSATION CLAIMS SUPERVISOR CMP (COMPREHENSIVE METABOLIC PANEL) STAT 02/09/2024 6:24 PM WORKERS' COMPENSATION CLAIMS SUPERVISOR EKG 12 LEAD STAT 02/09/2024 6:11 PM WORKERS' COMPENSATION CLAIMS SUPERVISOR EKG SCAN 02/09/2024 12:00 AM WORKERS' COMPENSATION CLAIMS SUPERVISOR [facility] SCREENING BILATERAL DIGITAL W CAD W JACK[place] Routine 03/19/2022 12:17 PM WORKERS' COMPENSATION CLAIMS SUPERVISOR Encounter for screening mammogram for malignant neoplasm of breast HEPATITIS C ANTIBODY Routine 01/09/2018 7:36 AM CDT Primary osteoarthritis of right hand Primary osteoarthritis, left hand Hyperuricemia Hypermobility syndrome [facility] BONE DENSITOMETRY AXIAL SKELETON Routine 10/16/2015 1:46 PM CDT Fracture, stress, metatarsal, left, initial encounter from Last 3 Months or Most Recently Relevant to Health Maintenance Results * (ABNORMAL) CBC with Auto Differential (02/09/2024 8:38 PM WORKERS' COMPENSATION CLAIMS SUPERVISOR) WBC 9.37 4.00 - 12.00 10(3)/mcL 02/09/2024 9:27 PM WORKERS' COMPENSATION CLAIMS SUPERVISOR [facility] RBC 3.93 3.80 - 5.30 10(6)/mcL 02/09/2024 9:27 PM WORKERS' COMPENSATION CLAIMS SUPERVISOR [facility] HEMOGLOBIN (HGB) 10.4(L) 12.0 - 15.8 g/dL 02/09/2024 9:27 PM WORKERS' COMPENSATION CLAIMS SUPERVISOR [facility] HEMATOCRIT (HCT) 34.9(L) 36.0 - 47.0 % 02/09/2024 9:27 PM WORKERS' COMPENSATION CLAIMS SUPERVISOR [facility] MCV 88.8 82.0 - 96.0 fL 02/09/2024 9:27 PM WORKERS' COMPENSATION CLAIMS SUPERVISOR [facility] MCH 26.5 26.0 - 34.0 pg 02/09/2024 9:27 PM WORKERS' COMPENSATION CLAIMS SUPERVISOR [facility] MCHC 29.8(L) 31.0 - 36.0 g/dL 02/09/2024 9:27 PM WORKERS' COMPENSATION CLAIMS SUPERVISOR [facility] PLATELET COUNT 297 140 - 440 10(3)/mcL 02/09/2024 9:27 PM WORKERS' COMPENSATION CLAIMS SUPERVISOR [facility] RDW 17.3(H) 11.8 - 15.5 % 02/09/2024 9:27 PM [facility] MPV 9.9 9.7 - 12.4 fL 02/09/2024 9:27 PM [facility] NEUTROPHILS 82.7(H) 47.0 - 73.0 % 02/09/2024 9:27 PM [facility] LYMPHOCYTES 9.3(L) 18.0 - 42.0 % 02/09/2024 9:27 PM [facility] MONOCYTES 7.3 4.0 - 12.0 % 02/09/2024 9:27 PM [facility] EOSINOPHILS 0.4 0.0 - 5.0 % 02/09/2024 9:27 PM [facility] BASOPHILS 0.3 0.0 - 1.0 % 02/09/2024 9:27 PM [facility] ABSOLUTE NEUTROPHILS 7.75(H) 1.60 - 7.70 10(3)/[facility] 02/09/2024 9:27 PM [facility] ABSOLUTE LYMPHOCYTES 0.87(L) 1.30 - 3.20 10(3)/[facility] 02/09/2024 9:27 PM [facility] ABSOLUTE MONOCYTES 0.68 0.20 - 1.00 10(3)/mcL 02/09/2024 9:27 PM [facility] ABSOLUTE EOSINOPHIL 0.04 0.00 - 0.40 10(3)/mcL 02/09/2024 9:27 PM [facility] ABSOLUTE BASOPHILS 0.03 0.00 - 0.10 10(3)/[facility] 02/09/2024 9:27 PM [facility] NRBC PER 100 WBC 0 02/09/20 9:27 PM [facility] RESULTS ARE CONSISTENT WITH PERIPHERAL SMEAR REVIEW Yes 02/09/2024 9:27 PM [facility] RBC MORPHOLOGY CONSISTENT WITH INDICES Yes 02/09/2024 9:27 PM [facility] Blood Venipuncture / Unknown 02/09/2024 8:38 PM WORKERS' COMPENSATION CLAIMS SUPERVISOR 02/09/2024 8:53 PM WORKERS' COMPENSATION CLAIMS SUPERVISOR us Harry Cisneros MD HEMATOLOGY ORDERABLES Final Resu lt Performing Organization Address [facility] de Phone Number [facility] [address] [place] [address] * TROPONIN I, HIGH SENSITIVITY (HSTRP) (02/09/2024 7:32 PM WORKERS' COMPENSATION CLAIMS SUPERVISOR) Only the most recent of2 resultswithin the time period is included. [facility] TROPONIN I, HIGH SENSITIVITY- HILARIO 3 <=14 ng/L 02/09/2024 8:05 PM WORKERS' COMPENSATION CLAIMS SUPERVISOR [facility] Comment: High-sensitivity troponin I results are reported in ng/L making the result appear to be 1,000 times higher than the contemporary troponin I value which is reported in ng/ml. Results from [facility]. Blood Venipuncture / Unknown 02/09/2024 7:32 PM WORKERS' COMPENSATION CLAIMS SUPERVISOR 02/09/2024 7:37 PM WORKERS' COMPENSATION CLAIMS SUPERVISOR us Harry Cisneros MD CHEMISTRY ORDERABLES Final Resul t Performing Organization Address [facility] de Phone Number [facility] [address] [place] [address] * RSV,SARS-COV-2,INFLUENZA A&B BY PCR (02/09/2024 7:22 PM WORKERS' COMPENSATION CLAIMS SUPERVISOR) [facility] FLU A Negative Negative, Error 02/09/2024 8:24 PM WORKERS' COMPENSATION CLAIMS SUPERVISOR [facility] FLU B Negative Negative 02/09/2024 8:24 PM WORKERS' COMPENSATION CLAIMS SUPERVISOR [facility] RESP SYNC VIRUS Negative Negative 8:24 PM WORKERS' COMPENSATION CLAIMS SUPERVISOR [facility] SARSCOV2 NOT DETECTED (Reference Range for this test is Not Detected) 02/09/2024 8:24 PM WORKERS' COMPENSATION CLAIMS SUPERVISOR [facility] Comment:This test was perfor med by a Reverse Vehicle Return Associate PCR Method. Swab NASOPHARYNGEAL WASHINGS / Unknown Non-Phlebotomy Collection / Unknown 02/09/2024 7:22 PM WORKERS' COMPENSATION CLAIMS SUPERVISOR 02/09/2024 7:36 PM WORKERS' COMPENSATION CLAIMS SUPERVISOR Narrative [facility] - 02/09/2024 8:24 PM WORKERS' COMPENSATION CLAIMS SUPERVISOR This test has not been FDA cleared or approved; the test has been authorized by FDA under an Emergency Use Authorization (EUA) for use by laboratories certified under the CLIA that meet the requirements to perform moderate, high or waived complexity tests. Authorized Fact Sheets about this test for providers and patients are available at: https://www.fda.gov/medical-devices/vgrgfplxn-bhozacjwgf-eqqrlbb-devices/emergen -us e-authorizations Bruce Castillo MD MICROBIOLOGY - GENERAL ORD ERABLES Final Result [facility] [address] [place] [address] * XR CHEST 2 VIEWS (02/09/2024 6:34 PM WORKERS' COMPENSATION CLAIMS SUPERVISOR) Anatomical Region Laterality Modality Chest N/A Digital Radiogra phy 02/09/2024 6:51 PM WORKERS' COMPENSATION CLAIMS SUPERVISOR Impressions 02/09/2024 6:54 PM WORKERS' COMPENSATION CLAIMS SUPERVISOR IMPRESSION: No acute cardiopulmonary abnormality. Narrative 02/09/2024 6:54 PM WORKERS' COMPENSATION CLAIMS SUPERVISOR EXAM DESCRIPTION: XR CHEST 2 VIEWS REASON FOR STUDY: pt c/o SOB x 2-3 day with no relief with inhaler and nebulizer. pt has hx of COPD, asthma, HTN, and a-fib. no hx of surgery ?? TECHNIQUE: 2 ??radiographic view(s) of the chest. COMPARISON: 09/18/2023 FINDINGS: LUNGS: Mild bibasilar atelectasis and/or scarring. ??Mild biapical pleuroparenchymal scarring. ??Unchanged left upper lung calcified granuloma. ?? No focal opacity, pleural effusion, or pneumothorax. ?? HEART/MEDIASTINUM: ??Cardiac silhouette normal in size. Mediastinal and hilar contours appear normal. LINES/TUBES: ??None. BONES: ??No acute osseous abnormality. THIS IS AN ELECTRONICALLY VERIFIED FINAL REPORT 02/09/2024 6:51 PM - Electronically signed by ??Maryellen Beltran M.D. AT: AT D: ??02/09/2024 6:51 PM T: ??02/09/2024 6:51 PM Report ID: [id number] Reading Location: ??[id number] Procedure Note Maryellen Beltran MD - 02/09/2024 EXAM DESCRIPTION: XR CHEST 2 VIEWS REASON FOR STUDY: pt c/o SOB x 2-3 day with no relief with inhaler and nebulizer. pt has hx of COPD, asthma, HTN, and a-fib. no hx of surgery TECHNIQUE: 2 radiographic view(s) of the chest. COMPARISON: 09/18/2023 FINDINGS: LUNGS: Mild bibasilar atelectasis and/or scarring. Mild biapical pleuroparenchymal scarring. Unchanged left upper lung calcified granuloma. No focal opacity, pleural effusion, or pneumothorax. HEART/MEDIASTINUM: Cardiac silhouette normal in size. Mediastinal and hilar contours appear normal. LINES/TUBES: None. BONES: No acute osseous abnormality. THIS IS AN ELECTRONICALLY VERIFIED FINAL REPORT 02/09/2024 6:51 PM - Electronically signed by Maryellen Beltran M.D. AT: AT Report ID: [id number] Reading Location: [id number] IMPRESSION: No acute cardiopulmonary abnormality. Harry Cisneros MD [facility] [place] DI[facility]NOSTIC ORDERABLES Final Result * (ABNORMAL) Comprehensive Metabolic Panel (Cmp) [id number] (02/09/2024 6:24 PM WORKERS' COMPENSATION CLAIMS SUPERVISOR) SODIUM 140 136 - 145 mmol/L 02/09/2024 7:00 PM WORKERS' COMPENSATION CLAIMS SUPERVISOR [facility] POTASSIUM 3.1(L) 3.5 - 5.1 mmol/L 02/09/2024 7:00 PM WORKERS' COMPENSATION CLAIMS SUPERVISOR [facility] CHLORIDE 107 98 - 107 mmol/L 02/09/2024 7:00 PM WORKERS' COMPENSATION CLAIMS SUPERVISOR [facility] CO2, VENOUS 19(L) 22 - 30 mmol/L 02/09/2024 7:00 PM [facility] ANION GAP 17.1 <18.0 mmol/L 02/09/2024 7:00 PM [facility] GLUCOSE 137(H) 70 - 99 mg/dL 02/09/2024 7:00 PM [facility] BUN 17 10 - 20 mg/dL 02/09/2024 7:00 PM [facility] CREATININE, BLOOD 0.88 0.60 - 1.00 mg/dL 02/09/2024 7:00 PM [facility] BUN/CREATININE RATIO 19 12 - 20 ratio 02/09/2024 7:00 PM [facility] TOTAL PROTEIN 7.0 6.3 - 8.2 g/dL 02/09/2024 7:00 PM [facility] ALBUMIN 4.0 3.5 - 5.0 g/dL 02/09/2024 7:00 PM [facility] A/G RATIO 1.3 1.0 - 2.2 02/09/2024 7:00 PM [facility] CALCIUM 9.5 8.7 - 10.5 mg/dL 02/09/2024 7:00 PM [facility] T BILI 0.5 0.2 - 1.2 mg/dL 02/09/2024 7:00 PM [facility] SGOT (AST) 18 5 - 34 U/L 02/09/2024 7:00 PM [facility] SGPT (ALT) 17 0 - 55 U/L 02/09/2024 7:00 PM [facility] ALKALINE PHOSPHATASE 88 40 - 150 U/L 02/09/2024 7:00 PM [facility] GFR, ESTIMATED >60 >=60 02/09/2024 7:00 PM [facility] Comment: Creatinine Clearance is the preferred criteria for selecting drug dose adjustments in renally impaired patients. ??The GFR is provided as additional pertinent clinical information. GFR is reported in mL/min/1.73 sq m. Calculation based on the Chronic Kidney Disease Epidemiology Collaboration (CKD- EPI) equation refit without adjustment for race. GFR, EST. >60 >=60 024 7:00 PM WORKERS' COMPENSATION CLAIMS SUPERVISOR [facility] GFR, EST. NONAFRICAN >60 >=60 02/09/2024 7:00 PM WORKERS' COMPENSATION CLAIMS SUPERVISOR [facility] Blood Venipuncture / Unknown 02/09/2024 6:24 PM WORKERS' COMPENSATION CLAIMS SUPERVISOR 02/09/2024 6:31 PM WORKERS' COMPENSATION CLAIMS SUPERVISOR us Harry Cisneros MD CHEMISTRY ORDERABLES Final Resul t Performing Organization Address City/[facility]/ZIP Co de Phone Number [facility] [address] [place] [address] * EKG 12 LEAD (02/09/2024 6:11 PM WORKERS' COMPENSATION CLAIMS SUPERVISOR) Ventricular Rate 113 BPM EXTERNAL EKG Atrial Rate 113 BPM EXTERNAL EKG P-R Interval 128 ms EXTERNAL EKG QRS Duration 74 ms EXTERNAL EKG Q-T Duration 314 ms EXTERNAL EKG QTC CALCULATION 430 ms EXTERNAL EKG P [place] 27 degrees EXTERNAL EKG R [place] 63 degrees EXTERNAL EKG T [place] 54 degrees EXTERNAL EKG 02/09/2024 6:11 PM WORKERS' COMPENSATION CLAIMS SUPERVISOR Impressions EXTERNAL EKG - 02/12/2024 6:28 PM WORKERS' COMPENSATION CLAIMS SUPERVISOR Sinus tachycardia Otherwise normal ECG No previous ECGs available Confirmed by Ashleigh Roman ([id number]) on 02/12/2024 6:28:07 PM Narrative Procedure Note Ashleigh Roman MD - 02/12/2024 IMPRESSION: Sinus tachycardia Otherwise normal ECG No previous ECGs available Confirmed by Ashleigh Roman ([id number]) on 02/12/2024 6:28:07 PM us Harry Cisneros MD IMG ECG ORDERABLES Final Result EXTERNAL EKG * EKG SCAN (02/09/2024 12:00 AM WORKERS' COMPENSATION CLAIMS SUPERVISOR) 02/09/2024 us Provider Scan IMG ECG ORDERABLES Final Result RESULTING AGENCY * JESUS SCREENING BILATERAL DIGITAL W CAD W JACKSON (03/19/2022 12:17 PM WORKERS' COMPENSATION CLAIMS SUPERVISOR) Anatomical Region Laterality Modality breast Bilateral Mammography 03/19/2022 12:1 9 PM WORKERS' COMPENSATION CLAIMS SUPERVISOR Narrative 03/19/2022 4:16 PM WORKERS' COMPENSATION CLAIMS SUPERVISOR - JESUS SCREENING BILATERAL DIGITAL W CAD W JACKSON BILATERAL DIGITAL SCREENING MAMMOGRAM 3D/2D WITH CAD WITH MEDIOLATERAL OBLIQUE CRANIOCAUDAL: 03/19/2022 The study was acquired using digital technology and interpreted from soft copy. Current study was also evaluated with ICAD version 7.2. 2D digital mammographic views, as well as 3D digital tomosynthesis were performed in the CC and MLO projections. ?? CLINICAL: Routine screening. Patient has no complaints. Personal history of cervical cancer. No family history of breast cancer. Additional MLO's performed and submitted due to motion. ?? COMPARISONS: Comparison is made to exams dated: ??01/15/2021, 12/26/2019, 10/23/2018, and 11/23/2018 [facility]. ?? BREAST TISSUE:The tissue of both breasts is heterogeneously dense. This may lower the sensitivity of mammography. ?? FINDINGS: The study is limited due to the patient's inability to fully coorperate with positioning. ?? There are benign vascular calcifications in both breasts. ?? No significant masses, calcifications, or other findings are seen in either breast. ?? There has been no significant interval change. IMPRESSION: BI-RAD 2 BENIGN The study is limited due to the patient's inability to fully coorperate with positioning. ?? There is no mammographic evidence of malignancy. A 1 year screening mammogram is recommended. ?? A letter will be sent to the patient with these results. The patient will be entered into a reminder system with a target due date of 1 year for her next screening exam. Electronically signed by: Melissa Galarza M.D. ? /paulette:03/19/2022 13:29:27 ?? Tumbler Plater(s): Rossi ?? RT Scout(R)(M), [facility] letter sent: Normal Exam ?? Reading location: [facility] BI-RADS: 2 Benign Procedure Note Melissa Galarza MD - 03/19/2022 - JESUS SCREENING BILATERAL DIGITAL W CAD W JACKSON BILATERAL DIGITAL SCREENING MAMMOGRAM 3D/2D WITH CAD WITH MEDIOLATERAL OBLIQUE CRANIOCAUDAL: 03/19/2022 The study was acquired using digital technology and interpreted from soft copy. Current study was also evaluated with ICAD version 7.2. 2D digital mammographic views, as well as 3D digital tomosynthesis were performed in the CC and MLO projections. CLINICAL: Routine screening. Patient has no complaints. Personal history of cervical cancer. No family history of breast cancer. Additional MLO's performed and submitted due to motion. COMPARISONS: Comparison is made to exams dated: 01/15/2021, 12/26/2019, 10/23/2018, and 11/23/2018 [facility]. BREAST TISSUE:The tissue of both breasts is heterogeneously dense. This may lower the sensitivity of mammography. FINDINGS: The study is limited due to the patient's inability to fully coorperate with positioning. There are benign vascular calcifications in both breasts. No significant masses, calcifications, or other findings are seen in either breast. There has been no significant interval change. IMPRESSION: BI-RAD 2 BENIGN The study is limited due to the patient's inability to fully coorperate with positioning. There is no mammographic evidence of malignancy. A 1 year screening mammogram is recommended. A letter will be sent to the patient with these results. The patient will be entered into a reminder system with a target due date of 1 year for her next screening exam. Electronically signed by: Melissa self/paulette:03/19/2022 13:29:27 Tumbler Plater(s): RT Aaron(R)(M), [facility] letter sent: Normal Exam Reading location: [facility] BI-RADS: 2 Benign us Fernando Rucker MD IMG MAMMO ORDERABLES Final Result * HEPATITIS C ANTIBODY (01/09/2018 7:36 AM CDT) hepatitis C antibody 0.11 <1 S/CO 01/09/2018 3:02 PM CDT [facility] Comment: Signal/Cutoff ratio ??< 0.79 is Nondetected Signal/Cutoff ratio 0.80-0.99 is Grayzone Signal/Cutoff ratio > 0.99 is Detected Supplemental assays are recommended if signal/cutoff ratio is >/=1.00. ??Signal/cutoff ratio result >/= 5.00 is 97% predictive of positivity for recombinant immunoblot assay (RIBA) and will be reported to the [place] Department of Public Health as required. Blood specimen (specimen) Venipuncture / Unknown 01/09/2018 7:36 AM CDT 01/09/2018 8:12 AM CDT us Canelo Mckeon MD CHEMISTRY ORDERABLES Final Resu lt [facility] [address] [place] [address], * [facility] BONE DENSITOMETRY AXIAL SKELETON (10/16/2015 1:46 PM CDT) Anatomical Region Laterality Modality BODY N/A Other 10/16/2015 3:19 PM CDT Impressions 10/16/2015 3:22 PM CDT IMPRESSION: Low bone mass. ??The patient's risk for fracture should be based not only on bone mineral density measurements but also clinical risk factors. Additional Clinical Information: Bone mineral density: ? Normal (T-score above or = -1.0) ? Low bone mass ??(T-score between -1.0 and -2.5) replaces the previously used term osteopenia ? Osteoporosis (T-score = or below -2.5) Medical evaluation for secondary causes of low bone mineral density may be appropriate. FRAX is a World Health Organization validated fracture risk assessment tool that calculates a person's 10 year probability of a major osteoporosis related fracture and hip fracture. ??According to the National Osteoporosis Foundation guidelines, postmenopausal women and men age 50 or older with low bone mass and a 10 year probability of a major osteoporosis related fracture = or greater than 20% or a 10 year probability of a hip fracture = or greater than 3% should be considered for treatment. For further information, including treatment recommendations, please refer to the 2013 ISCD Official Positions (http://www.iscd.org) and the NOF's Clinician's Guide to Prevention and Treatment of Osteoporosis (http://www.nof.org/professionals/clinical-guidelines) ?? Narrative 10/16/2015 3:22 PM CDT EXAMINATION: ?? DXA Bone Density HISTORY: ??60 year old postmenopausal female with given history of left foot stress fracture. Current Height: ??62 inches ?Maximum Height: ??62 inches ?Weight: ?? 127 pounds RISK FACTORS: ?? Fracture as an adult (not secondary to significant trauma), use of antacids for greater than 6 months, inflammatory bowel disease, menopause secondary to oophorectomy (age 29), no regular dairy product consumption, drinks caffeinated beverages. ?? Reported use of vitamin D, calcium, and hormone replacement therapy. COMPARISON(S): ??None MANAGER PEST/MODEL: ?? [employer] - [employer] (S/N [id number]) FINDINGS: AP lumbar spine ??L1-L4 Total BMD is 1.236 g/bt0O-ylfcm is 0.3 Left Hip Total BMD is 0.767 g/nd4K-eznpk is -1.9 Neck BMD is 0.785 g/zl2S-iqgnu is -1.8 Fracture risk assessment (FRAX): ? 10 year risk for a major osteoporotic fracture is 15.4 % ? 10 year risk for a hip fracture is 1.9 % The FRAX tool has not been validated in patients currently or previously treated with pharmacotherapy for osteoporosis. ??In such patients, clinical judgement must be exercised in interpreting FRAX scores as the fracture risk may be overestimated. THIS IS AN ELECTRONICALLY VERIFIED REPORT 10/16/2015 3:19 PM: ?? Tj Rodgers M.D. ? Tj Rodgers M.D. Radiologist MD: DOMINIK Procedure Note Tj Rodgers MD - 10/16/2015 EXAMINATION: DXA Bone Density HISTORY: 60 year old postmenopausal female with given history of left foot stress fracture. Current Height: 62 inches Maximum Height: 62 inches Weight: 127 pounds RISK FACTORS: Fracture as an adult (not secondary to significant trauma), use of antacids for greater than 6 months, inflammatory bowel disease, menopause secondary to oophorectomy (age 29), no regular dairy product consumption, drinks caffeinated beverages. Reported use of vitamin D, calcium, and hormone replacement therapy. COMPARISON(S): None MANAGER PEST/MODEL: [email or web address] (S/N [id number]) FINDINGS: AP lumbar spine L1-L4 Total BMD is 1.236 g/jc5V-zyfjp is 0.3 Left Hip Total BMD is 0.767 g/ff3D-ezfsw is -1.9 Neck BMD is 0.785 g/sz5Y-bdejz is -1.8 Fracture risk assessment (FRAX): 10 year risk for a major osteoporotic fracture is 15.4 % 10 year risk for a hip fracture is 1.9 % The FRAX tool has not been validated in patients currently or previously treated with pharmacotherapy for osteoporosis. In such patients, clinical judgement must be exercised in interpreting FRAX scores as the fracture risk may be overestimated. THIS IS AN ELECTRONICALLY VERIFIED REPORT 10/16/2015 3:19 PM: Latesha Rodriguez M.D. Radiologist MD: DOMINIK IMPRESSION: Low bone mass. The patient's risk for fracture should be based not only on bone mineral density measurements but also clinical risk factors. Additional Clinical Information: Bone mineral density: Normal (T-score above or = -1.0) Low bone mass (T-score between -1.0 and -2.5) replaces the previously used term osteopenia Osteoporosis (T-score = or below -2.5) Medical evaluation for secondary causes of low bone mineral density may be appropriate. FRAX is a World Health Organization validated fracture risk assessment tool that calculates a person's 10 year probability of a major osteoporosis related fracture and hip fracture. According to the National Osteoporosis Foundation guidelines, postmenopausal women and men age 50 or older with low bone mass and a 10 year probability of a major osteoporosis related fracture = or greater than 20% or a 10 year probability of a hip fracture = or greater than 3% should be considered for treatment. For further information, including treatment recommendations, please refer to the 2013 ISCD Official Positions (http://www.iscd.org) and the NOF's Clinician's Guide to Prevention and Treatment of Osteoporosis (http://www.nof.org/professionals/clinical-guidelines) Jimi Peters DPM IMG DEXA ORDERABLES Final Res ult from Last 3 Months or Most Recently Relevant to Health Maintenance Insurance [facility] [place] [id number] Advance Directives * Full Code (Latest Code Status on File) Date Activated Date Inactivated Comments 09/14/2023 2:17 PM 09/18/2023 7:58 AM * No CPR-Selective Treatment Date Activated Date Inactivated Comments 08/29/2023 12:26 PM 08/29/2023 5:30 PM No CPR - Se lective Treatment: FULL ARREST: Do Not Attempt Resuscitation. PRE-ARREST: DO NOT USE INTUBATION OR MECHANICAL VENTILATION, but may use basic medical treatment like CPAP or BiPAP, antibiotics, IV fluids, oxygen, etc. Avoid care in ICU setting. Question Answer Comments Physician documentation made in notes? Yes * No CPR-Comfort Focused Treatment Date Activated Date Inactivated Comments 08/28/2023 6:52 PM 08/29/2023 12:26 PM No CPR - Co mfort-Focused Treatment: FULL ARREST: Do Not Attempt Resuscitation. PRE-ARREST: Goal is to maximize comfort through symptom management and allow for a natural . Hospitalization is not preferred unless comfort can't be established elsewhere. Question Answer Comments Physician documentation made in notes? Yes * Full Code Date Activated Date Inactivated Comments 08/27/2023 11:37 PM 08/28/2023 6:52 PM CPR-Full Tr eatment: FULL ARREST: Attempt Resuscitation/CPR wit intubation and mechanical ventilation. PRE-ARREST: Use entire range of life support measures to stabilize the patient. * Full Code Date Activated Date Inactivated Comments 05/31/2023 4:56 PM 07/02/2023 2:35 PM Care Teams Supervisor Cook Room Relationship Specialty Start Date End Date Fernando Rucker MD [address] [address] PCP - General Family Medicine 05/11/15 Sylvester Graves MD [address] [place] [id number] Consulting Physician Neurology 06/17/23
--- OUTSIDE RECORDS SUMMARY | 2024-04-16 12:01 | XMS_ITS | Clinical Summary ---
Author Organization [facility] Address [address] [place] [address] Care Team Providers Care Agent Contract Clerk Name Role Phone Fernando Rucker MD Primary Care Provider [phone] Allergies Active Allergy Reactions Criticality Noted Date [...] 1 tablet (150 mg total) by mouth medical administrative technician before breakfast 10/12/19 24 Active butalbital-acetami nophen-caffeine [...] mouth every 6 (six) hours as needed 01/30/20 24 Active furosemide (LASIX) 40 mg tablet [...] Overview (06/19/2016): B12 injections - at home Encounters Date Type Department Care Team Description 03/29/2024 Telephone [place] [facility] Supervisor at [address] [phone] Mary Pichardo MA 03/14/2024 5:24 PM GLASS CLEANER - 03/14/2024 9:29 PM GLASS CLEANER Emergency [facility] Emergency Department [address] [place] [phone] Dizziness (Primary Dx); Nausea and vomiting, unspecified vomiting type Discharge Disposition: Discharge to home or self care 03/01/2024 Telephone [place] [employer] Supervisor at [address] [phone] Sam Roldan MA 02/22/2024 [facility] Post Discharge Follow up phone call [facility] [address] [place] [phone] Lizette Diaz 02/19/2024 11:54 AM GLASS CLEANER - 02/19/2024 11:59 PM GLASS CLEANER Hospital En[facility] Emergency, Room R Discharge Disposition: Discharge to home or self care 02/19/2024 10:20 AM GLASS CLEANER - 02/21/2024 1:03 PM GLASS CLEANER Hospital Encounter [facility] [address] [place] [address] Ariel Oreilly MD Bross, MD Mariola Bassett Chandni, MD Hypokalemia due to loss of potassium (Primary Dx); Dehydration; Syncope without other cardiovascular symptoms; EKG abnormalities; Anemia, unspecified type Discharge Disposition: Discharge to home or self care 02/10/2024 4:32 PM GLASS CLEANER - 02/13/2024 11:35 AM GLASS CLEANER Hospital Encounter [facility] [address] [place] [phone] Inocencio Miranda MD Nikolic, Jelena, MD Diastolic dysfunction (Primary Dx); COPD exacerbation (HCC); SIRS (systemic inflammatory response syndrome) (HCC) Discharge Disposition: Discharge to home or self care 02/10/2024 4:10 PM GLASS CLEANER - 02/10/2024 11:59 PM GLASS CLEANER Hospital Encounter [facility] Emergency, Room R Discharge Disposition: Discharge to home or self care 01/27/2024 8:45 AM GLASS CLEANER Office Visit [place] [facility] Supervisor at [address] [place] [phone] Maris Mcfarlane MD Diastolic dysfunction (Primary Dx); Pulmonary hypertension (HCC); Essential hypertension; Chronic obstructive pulmonary disease, unspecified COPD type (HCC); Vertigo, benign positional; Hypotension due to drugs; Atrial fibrillation, unspecified type (HCC); On continuous oral anticoagulation 01/25/2024 Telephone [place] [employer] Supervisor at [address] [place] [phone] Maris Mcfarlane MD from Last 3 Months Surgical History Surgery Date Site/Laterality Comments CARPAL TUNNEL RELEASE Left Carpal tunnel release BREAST BIOPSY breast biopsy HYSTERECTOMY hysterectomy Medical History Medical History Date Comments Anemia Anemia Hx Other Medical Headache, migra ine Hypertension Hypertension Atrial fibrillation (CMS/HCC) (HCC) CVA (cerebral vascular accident) (HCC) COPD (chronic obstructive pulmonary disease) (HC C) Family History Medical History Relation Name Comments Hypertension Other 1 Family history of Hypertension; Cancer Other 2 Family history of cancer; Diabetes Other 3 Family history of diabetes; Arthritis Other 4 Family history of arthritis; Relation Name Status Comments Other 1 Other 2 Other 3 Other 4 Social History Tobacco Use Types Packs/Day Years Used Date Smoking Tobacco: Never Smokeless Tobacco: Never Alcohol Use Standard Drinks/Week Comments Not Currently 0 (1 standard drink = 0.6 oz pur e alcohol) [facility] Utilities Answer Date Recorded In the past 12 months has e [employer], gas, oil, or water [employer] threatened to shut off services in your [...] 02/19/2024 How often do you attend chur ch or scientologist services? Never 02/19/2024 Do you belong to any clubs o r organizations such as islam groups, unions, fraternal or athletic groups, or [...] any time in the past 12 m [facility], were you homeless or living in a halfway (including now)? No 02/19/2024 Personal Safety Answer Date Recorded Have you ever been in or are you currently in a harmful physical or emotional relationship or is someone making you feel afraid or unsafe? Denies 03/14/2024 Comments No Sex and Gender Information Value Date Recorded Sex Assigned at Not on file Legal Sex Female 12:11 AM GLASS CLEANER Gender Identity Not on file Sexual Orientation Not on file Obstetrics History Last Filed Vital Signs Vital Sign Reading Time Taken Comments Blood Pressure 144/83 03/14/2024 1:52 PM GLASS CLEANER Pulse 85 03/14/2024 5:54 PM GLASS CLEANER Temperature 36.6 ??C (97.8 ??F) 03/14/2024 1:51 PM CS T Respiratory Rate 18 03/14/2024 5:54 PM GLASS CLEANER Oxygen Saturation 95% 03/14/2024 5:54 PM GLASS CLEANER Inhaled Oxygen Concentration - - Weight 59 kg (130 lb) 03/14/2024 1:52 PM GLASS CLEANER Height 157.5 cm (5' 2 ) 02/19/2024 7:15 PM GLASS CLEANER Body Mass Index 23.78 02/19/2024 7:15 PM GLASS CLEANER Plan of Treatment Health Maintenance Due Date Last Done Comments Colon Cancer Screening-Colonoscopy 1954 Depression Screening 1954 Hepatitis C Screening 1954 Pneumococcal vaccine 65+ (1 of 2 - PCV) 1960 Hepatitis B Screening 1972 Zoster Vaccine (1 of 2) 1973 Osteoporosis Screening-Bone Density Scan 10/15/2017 10/16/2015, 10/16/2015 Well Visit 65+ 2019 Breast Cancer Screening-Mammogram 03/19/2023 03/19/2022, 03/19/2022, 01/15/2021, Additional history exists Influenza Vaccine (#1) 2023 12/14/2018, 2017 Fall Risk Assessment 02/20/2025 02/21/2024 DTaP/Tdap/Td Vaccine (2 - Td or Tdap) 08/23/2033 08/24/2023 Procedures Procedure Name Priority Date/Time Associated Diagnosis Comments TROPONIN T HIGH-SENSITIVITY 2-HOUR Timed 03/14/2024 8:[address] HEAD WO CONTRAST ED 03/14/2024 6 :58 PM GLASS CLEANER INFLUENZA A/B, RSV, AND COVID-19 PCR Routine 03/14/2024 6:23 PM GLASS CLEANER PRO B-TYPE NATRIURETIC PEPTIDE Add-On 03/14/2024 5:38 PM GLASS CLEANER EGFR STAT 03/14/2024 5:38 PM GLASS CLEANER DIFFERENTIAL AUTO STAT 03/14/2024 5:3 8 PM GLASS CLEANER TROPONIN T HIGH-SENSITIVITY SERIES (BASELINE, 2HR, 4HR, 6HR) STAT 03/14/2024 5:38 PM GLASS CLEANER CBC WITH AUTO DIFFERENTIAL STAT 03/14/2024 5:38 PM GLASS CLEANER COMPREHENSIVE METABOLIC PANEL STAT 03/14/2024 5:38 PM GLASS CLEANER XR CHEST 1 VIEW ED 03/14/2024 2:19 PM GLASS CLEANER ECG 12-LEAD STAT 03/14/2024 1:57 PM GLASS CLEANER EGFR Routine 02/21/2024 2:43 AM GLASS CLEANER DIFFERENTIAL AUTO Routine 02/21/2024 2:4 3 AM GLASS CLEANER LACTATE Routine 02/21/2024 2:43 AM GLASS CLEANER CBC WITH AUTO DIFFERENTIAL Routine 02/21/2024 2:43 AM GLASS CLEANER MAGNESIUM Routine 02/21/2024 2:43 AM GLASS CLEANER COMPREHENSIVE METABOLIC PANEL Routine 02/21/2024 2:43 AM GLASS CLEANER POTASSIUM LEVEL Timed 02/20/2024 4:15 PM GLASS CLEANER BLOOD CULTURE Routine 02/20/2024 12:03 PM GLASS CLEANER BLOOD CULTURE Routine 02/20/2024 11:44 AM GLASS CLEANER LIPID PANEL Routine 02/20/2024 4:25 AM GLASS CLEANER EGFR Routine 02/20/2024 4:25 AM GLASS CLEANER DIFFERENTIAL AUTO Routine 02/20/2024 4:2 5 AM GLASS CLEANER CBC WITH AUTO DIFFERENTIAL Routine 02/20/2024 4:25 AM GLASS CLEANER MAGNESIUM Routine 02/20/2024 4:25 AM GLASS CLEANER COMPREHENSIVE METABOLIC PANEL Routine 02/20/2024 4:25 AM GLASS CLEANER SEPSIS LACTATE WITH REFLEX Timed 02/19/2024 10:56 PM GLASS CLEANER EGFR Timed 02/19/2024 7:44 PM GLASS CLEANER RENAL FUNCTION PANEL Timed 02/19/2024 7:44 PM GLASS CLEANER SEPSIS LACTATE WITH REFLEX Timed 02/19/2024 7:44 PM GLASS CLEANER TROPONIN T HIGH-SENSITIVITY 4-HR Timed 02/19/2024 2:56 PM GLASS CLEANER SEPSIS LACTATE WITH REFLEX Routine 02/19/2024 2:56 PM GLASS CLEANER URINALYSIS AND REFLEX TO MICROSCOPIC AND CULTURE Routine 02/19/2024 12:[address] CERVICAL SPINE WO CONTRAST ED 02/19/2024 11:[address] HEAD WO CONTRAST ED 02/19/2024 1 1:55 AM GLASS CLEANER XR CHEST 1 VIEW ED 02/19/2024 11:25 AM GLASS CLEANER MAGNESIUM Add-On 02/19/2024 10:59 AM GLASS CLEANER EGFR STAT 02/19/2024 10:59 AM GLASS CLEANER DIFFERENTIAL AUTO STAT 02/19/2024 10: 59 AM GLASS CLEANER TROPONIN T HIGH-SENSITIVITY SERIES (BASELINE, 2HR, 4HR, 6HR) STAT 02/19/2024 10:59 AM GLASS CLEANER PRO B-TYPE NATRIURETIC PEPTIDE STAT 02/19/2024 10:59 AM GLASS CLEANER COMPREHENSIVE METABOLIC PANEL STAT 02/19/2024 10:59 AM GLASS CLEANER CBC WITH AUTO DIFFERENTIAL STAT 02/19/2024 10:59 AM GLASS CLEANER ECG 12-LEAD Routine 02/19/2024 10:43 AM GLASS CLEANER POCT GLUCOSE DEVICE Routine 02/13/2024 7 :49 AM GLASS CLEANER POCT GLUCOSE DEVICE Routine 02/13/2024 4 :53 AM GLASS CLEANER EGFR Routine 02/13/2024 4:46 AM GLASS CLEANER DIFFERENTIAL AUTO Routine 02/13/2024 4:4 6 AM GLASS CLEANER MAGNESIUM Routine 02/13/2024 4:46 AM GLASS CLEANER COMPREHENSIVE METABOLIC PANEL Routine 02/13/2024 4:46 AM GLASS CLEANER CBC WITH AUTO DIFFERENTIAL Routine 02/13/2024 4:46 AM GLASS CLEANER PNEUMONIA PCR WITH AEROBIC CULTURE AND GRAM STAIN Routine 02/12/2024 9:27 PM GLASS CLEANER POCT GLUCOSE DEVICE Routine 02/12/2024 9 :17 PM GLASS CLEANER POCT GLUCOSE DEVICE Routine 02/12/2024 4 :56 PM GLASS CLEANER TRANSTHORACIC ECHO (TTE) COMPLETE W DOPPLER/CF WO CONTRAST Routine 02/12/2024 12:59 PM GLASS CLEANER POCT GLUCOSE DEVICE Routine 02/12/2024 1 2:17 PM GLASS CLEANER EGFR Routine 02/12/2024 7:58 AM GLASS CLEANER DIFFERENTIAL AUTO Routine 02/12/2024 7:5 8 AM GLASS CLEANER LACTATE Routine 02/12/2024 7:58 AM GLASS CLEANER PROCALCITONIN Routine 02/12/2024 7:58 AM GLASS CLEANER MAGNESIUM Routine 02/12/2024 7:58 AM GLASS CLEANER COMPREHENSIVE METABOLIC PANEL Routine 02/12/2024 7:58 AM GLASS CLEANER CBC WITH AUTO DIFFERENTIAL Routine 02/12/2024 7:58 AM GLASS CLEANER POCT GLUCOSE DEVICE Routine 02/12/2024 7 :44 AM GLASS CLEANER POCT GLUCOSE DEVICE Routine 02/12/2024 4 :17 AM GLASS CLEANER EGFR Routine 02/12/2024 3:55 AM GLASS CLEANER DIFFERENTIAL AUTO Routine 02/12/2024 3:5 5 AM GLASS CLEANER LACTATE Routine 02/12/2024 3:55 AM GLASS CLEANER MAGNESIUM Routine 02/12/2024 3:55 AM GLASS CLEANER COMPREHENSIVE METABOLIC PANEL Routine 02/12/2024 3:55 AM GLASS CLEANER CBC WITH AUTO DIFFERENTIAL Routine 02/12/2024 3:55 AM GLASS CLEANER POCT GLUCOSE DEVICE Routine 02/12/2024 1 2:27 AM GLASS CLEANER POCT GLUCOSE DEVICE Routine 02/11/2024 8 :32 PM GLASS CLEANER POCT GLUCOSE DEVICE Routine 02/11/2024 5 :[address] CHEST WO CONTRAST IP Routine 02/11/2024 12:37 PM GLASS CLEANER LEGIONELLA ANTIGEN, URINE Routine 02/11/2024 7:50 AM GLASS CLEANER STREP PNEUMONIAE AG, URINE Routine 02/11/2024 7:50 AM GLASS CLEANER MRSA ONLY (STAPHYLOCOCCUS AUREUS) PCR Routine 02/11/2024 6:12 AM GLASS CLEANER EGFR Routine 02/10/2024 10:46 PM GLASS CLEANER DIFFERENTIAL AUTO Routine 02/10/2024 10: 46 PM GLASS CLEANER SEPSIS LACTATE WITH REFLEX Timed 02/10/2024 10:46 PM GLASS CLEANER COMPREHENSIVE METABOLIC PANEL Routine 02/10/2024 10:46 PM GLASS CLEANER CBC WITH AUTO DIFFERENTIAL Routine 02/10/2024 10:46 PM GLASS CLEANER TROPONIN T HIGH-SENSITIVITY 6-HOUR Timed 02/10/2024 10:46 PM GLASS CLEANER SEPSIS LACTATE WITH REFLEX Timed 02/10/2024 8:55 PM GLASS CLEANER TROPONIN T HIGH-SENSITIVITY 4-HR Timed 02/10/2024 8:55 PM GLASS CLEANER XR CHEST 1 VIEW ED 02/10/2024 6:31 PM GLASS CLEANER TROPONIN T HIGH-SENSITIVITY 2-HOUR Timed 02/10/2024 6:24 PM GLASS CLEANER BLOOD CULTURE STAT 02/10/2024 6:24 PM GLASS CLEANER BLOOD CULTURE STAT 02/10/2024 6:24 PM GLASS CLEANER BLOOD GAS, VENOUS STAT 02/10/2024 5:4 7 PM GLASS CLEANER SEPSIS LACTATE WITH REFLEX STAT 02/10/2024 5:47 PM GLASS CLEANER INFLUENZA A/B, RSV, AND COVID-19 PCR Routine 02/10/2024 5:47 PM GLASS CLEANER EGFR STAT 02/10/2024 4:50 PM GLASS CLEANER DIFFERENTIAL AUTO STAT 02/10/2024 4:5 0 PM GLASS CLEANER PRO B-TYPE NATRIURETIC PEPTIDE STAT 02/10/2024 4:50 PM GLASS CLEANER TROPONIN T HIGH-SENSITIVITY SERIES (BASELINE, 2HR, 4HR, 6HR) STAT 02/10/2024 4:50 PM GLASS CLEANER D-DIMER, QUANTITATIVE STAT 02/10/2024 4:50 PM GLASS CLEANER COMPREHENSIVE METABOLIC PANEL STAT 02/10/2024 4:50 PM GLASS CLEANER CBC WITH AUTO DIFFERENTIAL STAT 02/10/2024 4:50 PM GLASS CLEANER ECG 12-LEAD STAT 02/10/2024 4:43 PM GLASS CLEANER from Last 3 Months Results * Troponin T high-sensitivity 2-hour (03/14/2024 8:06 PM GLASS CLEANER) Trop T hs 11 <=14 ng/L Comment: Interpretive Data For further hscTnT resources including the diagnostic algorithm and an aid in interpretation, copy and paste this link: https://nrl.testcatalog.org/show/hsTrop Current Interpretive Data last revised 2020. Trop T hs delta -1 ng/L [facility] ([place]) Trop T hs interp Insignificant [facility] ([place]) Blood 03/14/2024 8:06 PM GLASS CLEANER 03/14/2024 8:09 PM GLASS CLEANER us Waldemar Stearns MD LAB BLOOD ORDERABLES Final R esult [facility] ([place]) 1 [facility] [place] [address] * CT Head WO Contrast (03/14/2024 6:58 PM GLASS CLEANER) Anatomical Region Laterality Modality Head and Neck N/A Computed Tomogra phy 03/14/2024 7:43 PM GLASS CLEANER Narrative 03/14/2024 7:45 PM GLASS CLEANER EXAM DESCRIPTION: CT HEAD WO CONTRAST REASON [...] 03/14/2024 7:45 PM - Electronically signed by ??Alexis Bernard M.D. AR: BIMAL D: ??03/14/2024 7:45 PM T: ??03/14/2024 7:45 PM Report ID: [id number] Reading Location: ??[id number] Procedure Note Alexis Bernard MD - 03/14/2024 [...] Alexis Bernard M.D. AR: BIMAL Report ID: [id number] Reading Location: [place] [address] Rubina Vargas STANDARDS ANALYST IMG CT PROCEDURES Fi nal Result * Influenza A/B, RSV, and COVID-19 PCR Nasopharyngeal (03/14/2024 6:23 PM GLASS CLEANER) COVID-19 RNA Negative Negative Influenza A RNA Negative Negative [facility] Influenza B RNA Negative Negative [facility]) RSV RNA Negative Negative [facility] ([place]) Comment: Interpretive data: Testing performed by [facility]. This test is performed using the [employer] Xpert Xpress CoV-2/Flu/RSV plus assay. This is a multiplex, real- time reverse transcriptase PCR assay intended for the qualitative detection of nucleic acid from SARS-CoV-2, influenza A, influenza B, and respiratory syncytial virus. This assay has been cleared by the [place] Food and Drug administration. The performance characteristics have been verified by the [facility]. ?? Results must be considered in the clinical context, and a negative result does not rule out infection. Interpretive Data last revised 2023 Nasopharyngeal 03/14/2024 6: 23 PM GLASS CLEANER 03/14/2024 6:28 PM GLASS CLEANER Narrative [facility] ([place]) - 03/14/2024 7:12 PM GLASS CLEANER Is the Patient experiencing symptoms consistent with COVID?->Yes us Rubina Vargas NP LAB MICROBIOLOGY - G ENERAL ORDERABLES Final Result Performing Organization Address [facility] Co de Phone Number [facility] ([place]) 1 [facility] [place] [address] * Troponin T high-sensitivity series (baseline, 2hr, 4hr, 6hr) (03/14/2024 5:38 PM GLASS CLEANER) Trop T hs 12 <=14 ng/L Comment: Interpretive Data For further hscTnT resources including the diagnostic algorithm and an aid in interpretation, copy and paste this link: https://nrl.testcatalog.org/show/hsTrop Current Interpretive Data last revised 2020. Blood 03/14/2024 5:38 PM GLASS CLEANER 03/14/2024 5:44 PM GLASS CLEANER us Waldemar Stearns MD LAB BLOOD ORDERABLES Final R esult Performing Organization Address [facility] Co de Phone Number [facility] ([place]) 1 [facility] [place] [address] * (ABNORMAL) eGFR (03/14/2024 5:38 PM GLASS CLEANER) eGFR 58(L) >=60 mL/min/1. 73 m2 Comment: [...] last reviewed 2021. Blood 03/14/2024 5:38 PM GLASS CLEANER 03/14/2024 5:44 PM GLASS CLEANER us Waldemar Stearns MD LAB BLOOD ORDERABLES Final R esult [facility] 1 [facility] [place] [address] * (ABNORMAL) Differential, auto (03/14/2024 5:38 PM GLASS CLEANER) Neutrophil abs 10.6(H) 1.5 - 6.5 K/cumm Imm gran abs 0.1 0.0 - 0.1 K/cumm [facility] ([place]) Lymphocyte abs 1.7 0.8 - 3.3 K/cumm [facility] ([place]) Monocyte abs 0.7 0.2 - 0.8 K/cumm [facility] ([place]) Eosinophil abs 0.0 0.0 - 0.5 K/cumm [facility] ([place]) Basophil abs 0.0 0.0 - 0.1 K/cumm [facility] ([place]) Neutrophil pct 80.9 % [facility] ([place]) Comment: Interpretive Data Percent cell count reference [...] revised on 2017. Blood 03/14/2024 5:38 PM GLASS CLEANER 03/14/2024 5:43 PM GLASS CLEANER us Waldemar Stearns MD LAB BLOOD ORDERABLES Final R esult [facility] ([place]) 1 [facility] [place] [address] * Pro B-type natriuretic peptide (03/14/2024 5:38 PM GLASS CLEANER) NT-proBNP 159 <=300 pg/mL Comment: Interpretive Comments: [...] Revised Date: 2017. Blood 03/14/2024 5:38 PM GLASS CLEANER 03/14/2024 6:24 PM GLASS CLEANER Rubina Vargas NP LAB BLOOD ORDERABLES Final Result [facility] ([place]) 1 [facility] [place] [address] * (ABNORMAL) CBC with auto differential (03/14/2024 5:38 PM GLASS CLEANER) [facility] [address] WBC 13.1(H) 3.8 - 9.9 K/cumm Hgb [...] [facility] ([place]) Blood 03/14/2024 5:38 PM GLASS CLEANER 03/14/2024 5:43 PM GLASS CLEANER Waldemar Stearns MD LAB BLOOD ORDERABLES Final R esult [facility] ([place]) 1 [facility] [place] [address] * (ABNORMAL) Comprehensive metabolic panel (03/14/2024 5:38 PM GLASS CLEANER) [facility] [address] Sodium 139 135 - 145 mmol/L Potassium, [...] ([place]) AST 22 10 - 45 Units/L [facility] ([place]) Comment:Slightly Hemolyzed S pecimen Blood 03/14/2024 5:38 PM GLASS CLEANER 03/14/2024 5:44 PM GLASS CLEANER us Waldemar Stearns MD LAB BLOOD ORDERABLES Final R esult [facility] ([place]) 1 [facility] [place] [address] * XR Chest 1 Vw Portable (if patient condition/safety warrant portable) (03/14/2024 2:19 PM GLASS CLEANER) Anatomical Region Laterality Modality Body, Chest N/A Computed Radiogr aphy 03/14/2024 2:50 PM GLASS CLEANER Narrative 03/14/2024 2:51 PM GLASS CLEANER EXAM DESCRIPTION: XR CHEST 1 VIEW REASON [...] PM T: ??03/14/2024 2:51 PM Report ID: [id number] Reading Location: [id number] Procedure Note Tee Lentz MD - 03/14/2024 [...] Tee Lentz M.D. MJ: EYAD Report ID: [id number] Reading Location: [place] [address] Waldemar Stearns MD IMG XR PROCEDURES Final Resu lt * ECG 12 lead (03/14/2024 1:57 PM GLASS CLEANER) 03/14/2024 1:57 PM GLASS CLEANER Narrative [facility] - 03/14/2024 3:51 PM GLASS CLEANER Vent Rate: 86 bpm RR Interval: 697 msec IA Interval: 113 msec QRS Duration: 86 msec QT Interval: 331 msec QTC Interval: 374 msec P-R-T [place]: 27 - 32 - 36 degrees IMPRESSION: Baseline artifact, probable SINUS RHYTHM WITH SHORT IA INTERVAL BORDERLINE ECG Electronically Signed By: Chapin Padron MD Waldemar Stearns MD ECG ORDERABLES Final Result Performing Organization Address [facility] Co de Phone Number [facility] * (ABNORMAL) Lactate (02/21/2024 2:43 AM GLASS CLEANER) Lactate 2.2(H) 0.7 - 2.0 mmol/L Blood 02/21/2024 2:43 AM GLASS CLEANER 02/21/2024 2:50 AM GLASS CLEANER Dyan Garnett MD LAB BLOOD ORDERABLES Final Resu lt [facility] ([place]) 1 [facility] [place] [address] * eGFR (02/21/2024 2:43 AM GLASS CLEANER) eGFR 80 >=60 mL/min/1. 73 m2 Comment: [...] last reviewed 2021. Blood 02/21/2024 2:43 AM GLASS CLEANER 02/21/2024 3:01 AM GLASS CLEANER Wilver Gonzales MD LAB BLOOD ORDERABLES Fi nal Result [facility] ([place]) 1 [facility] Department [place] [address] * (ABNORMAL) Differential, auto (02/21/2024 2:43 AM GLASS CLEANER) [facility] [address] Neutrophil abs 8.0(H) 1.5 - 6.5 K/cumm Imm gran abs 0.1 0.0 - 0.1 K/cumm [facility] ([place]) Lymphocyte abs 3.0 0.8 - 3.3 K/cumm [facility] ([place]) Monocyte abs 0.9(H) 0.2 - 0.8 K/cumm [facility] ([place]) Eosinophil abs 0.1 0.0 - 0.5 K/cumm [facility] ([place]) Basophil abs 0.1 0.0 - 0.1 K/cumm [facility] ([place]) Neutrophil pct 65.9 % [facility] ([place]) Comment: Interpretive [...] revised on 2017. Blood 02/21/2024 2:43 AM GLASS CLEANER 02/21/2024 2:51 AM GLASS CLEANER us Wilver Gonzales MD LAB BLOOD ORDERABLES Fi nal Result [facility] ([place]) 1 [facility] Department [place] [address] * (ABNORMAL) CBC with auto differential (02/21/2024 2:43 AM GLASS CLEANER) WBC 12.1(H) 3.8 - 9.9 K/cumm Hgb 8.9(L) 11.9 - 15.5 g/dL [facility] ([place]) Hct 30.0(L) 35.6 - 45.5 % [facility] ([place]) Plt 288 150 - 400 K/cumm [facility] ([place]) MPV 9.6 9.1 - 12.3 fL [facility] ([place]) RBC 3.38(L) 3.90 - 5.20 M/cumm [facility] ([place]) MCV 88.8 81.3 - 96.4 fL [facility] ([place]) MCH 26.3(L) 27.1 - 33.3 pg [facility] ([place]) MCHC 29.7(L) 32.3 - 35.7 g/dL [facility] ([place]) RDW CV 16.8(H) 11.1 - 14.9 % [facility] ([place]) RDW SD 53.7(H) 35.7 - 48.1 fL [facility] ([place]) NRBC abs 0.00 0.00 - 0.01 K/cumm [facility] ([place]) Blood 02/21/2024 2:43 AM GLASS CLEANER 02/21/2024 2:51 AM GLASS CLEANER Wilver Gonzales MD LAB BLOOD ORDERABLES Fi nal Result [facility] ([place]) 1 [facility] [place] [address] * Magnesium (02/21/2024 2:43 AM GLASS CLEANER) Pathologist [facility] Magnesium 2.2 1.4 - 2.5 mg/dL Blood 02/21/2024 2:43 AM GLASS CLEANER 02/21/2024 3:01 AM GLASS CLEANER Ekanga Osman Gonzales MD LAB BLOOD ORDERABLES nal Result [facility] ([place]) 1 [facility] [place] [address] * (ABNORMAL) Comprehensive metabolic panel (02/21/2024 2:43 AM GLASS CLEANER) Sodium 142 135 - 145 mmol/L Potassium, pl 3.6 3.3 - 4.9 mmol/L [facility] ([place]) Chloride 109 97 - 110 mmol/L [facility] ([place]) CO2 23 22 - 32 mmol/L [facility] ([place]) Anion gap 10 2 - 15 mmol/L [facility] ([place]) BUN 31(H) 6 - 25 mg/dL [facility] ([place]) Creatinine 0.80 0.60 - 1.10 mg/dL [facility] ([place]) Glucose 127 70 - 199 mg/dL [facility] ([place]) [...] [facility]) Blood 02/21/2024 2:43 AM GLASS CLEANER 02/21/2024 3:01 AM GLASS CLEANER us Wilver Gonzales MD LAB BLOOD ORDERABLES Fi nal Result [facility] ([place]) 1 [facility] [place] [address] * Potassium (02/20/2024 4:15 PM GLASS CLEANER) Potassium, pl 4.4 3.3 - 4.9 mmol/L Blood 02/20/2024 4:15 PM GLASS CLEANER 02/20/2024 4:30 PM GLASS CLEANER us Bernabe Zamora MD LAB BLOOD ORDERABLES Final Re sult Performing Organization Address [facility] Co de Phone Number REJI CHAMBERS ([place]) 1 [facility] [place] [address] * Blood culture Blood (02/20/2024 12:03 PM GLASS CLEANER) Report Final Report: No growth Comment:Testing performed by : [facility], [address] [facility] [place] [place]., [address] Blood 02/20/2024 12:0 3 PM GLASS CLEANER 02/20/2024 2:04 PM GLASS CLEANER Narrative REJI CHAMBERS ([place]) - 02/24/2024 4:00 PM GLASS CLEANER From a different site than #1. Collection->Peripheral [...] performance characteristics have been verified by the [facility]. For questions about this culture, contact the Microbiology Laboratory at [phone]. Interpretive data was last revised on 24. Dyan Garnett MD LAB MICROBIOLOGY - GENERAL IRVING FERGUSON Final Result [facility] ([place]) 1 [facility] [place] [address] * Blood culture Blood (02/20/2024 11:44 AM GLASS CLEANER) Report Final Report: No growth Comment:Testing performed by : [facility], 1 [facility] [place] [place] [address] Blood 02/20/2024 11:4 4 AM GLASS CLEANER 02/20/2024 2:04 PM GLASS CLEANER Narrative [facility] ([place]) - 02/24/2024 4:00 PM GLASS CLEANER Collection->Peripheral 1. ?Blood cultures are incubated for [...] performance characteristics have been verified by the [facility] Microbiology Laboratory. For questions about this culture, contact the Microbiology Laboratory at [phone]. Interpretive data was last revised on 24. Dyan Garnett MD LAB MICROBIOLOGY - GENERAL IRVING FERGUSON Final Result [facility] [place]) 1 [facility] [place] [address] * eGFR (02/20/2024 4:25 AM GLASS CLEANER) eGFR 62 >=60 mL/min/1. 73 m2 Comment: [...] last reviewed 2021. 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 Monocyte pct 9.0 % [facility] ([place]) Comment: Interpretive Data Percent cell count reference [...] revised on 2017. Blood 02/20/2024 4:25 AM GLASS CLEANER 02/20/2024 4:58 AM GLASS CLEANER us Wilver Gonzales MD LAB BLOOD ORDERABLES Fi nal Result [facility] ([place]) 1 [facility] [place] [address] * (ABNORMAL) CBC with auto differential (02/20/2024 4:25 AM GLASS CLEANER) WBC 13.7(H) 3.8 - 9.9 K/cumm Hgb 9.7(L) 11.9 - 15.5 g/dL [facility] ([place]) Hct 31.6(L) 35.6 - 45.5 % [facility] ([place]) Plt 343 150 - 400 K/cumm [facility] ([place]) MPV 9.9 9.1 - 12.3 fL [facility] ([place]) RBC 3.66(L) 3.90 - 5.20 M/cumm [facility] ([place]) MCV 86.3 81.3 - 96.4 fL [facility] ([place]) MCH 26.5(L) 27.1 - 33.3 pg [facility] ([place]) MCHC 30.7(L) 32.3 - 35.7 g/dL [facility] ([place]) RDW CV 16.6(H) 11.1 - 14.9 % [facility] ([place]) RDW SD 52.6(H) 35.7 - 48.1 fL [facility] ([place]) NRBC abs 0.00 0.00 - 0.01 K/cumm [facility] ([place]) Blood 02/20/2024 4:25 AM GLASS CLEANER 02/20/2024 4:58 AM GLASS CLEANER Wilver Gonzalse MD LAB BLOOD ORDERABLES Fi nal Result Performing Organization Address City/[facility] Co de Phone Number [facility] ([place]) 1 [place] [address] * Magnesium (02/20/2024 4:25 AM GLASS CLEANER) Pathologist [facility] Magnesium 1.9 1.4 - 2.5 mg/dL Blood 02/20/2024 4:25 AM GLASS CLEANER 02/20/2024 4:58 AM GLASS CLEANER Wilver Gonzales MD LAB BLOOD ORDERABLES Fi nal Result Performing Organization Address [facility] de Phone Number [facility] ([place]) 1 [place] [address] * Lipid panel (02/20/2024 4:25 AM GLASS CLEANER) Cholesterol 159 30 - 199 mg/dL Comment: [...] revised on 2017. Triglycerides 89 <=149 mg/dL [facility] [place]) Comment: Interpretive Data Ages < or = [...] on 2017. HDL 57 >=40 mg/dL RE[facility]I [place]) Comment: Interpretive Data Ages < or = [...] last revised on 2017. Chol/HDL ratio 3 [facility] ([place]) Blood 02/20/2024 4:25 AM GLASS CLEANER 02/20/2024 10:07 AM GLASS CLEANER Narrative [facility] ([place]) - 02/20/2024 10:49 AM GLASS CLEANER May run on this morning blood. ?? If not possible, do it tomorrow morning at 6. us Bernabe Zamora MD LAB BLOOD ORDERABLES Final Re sult [facility] ([place]) 1 [facility] [place] [address] * (ABNORMAL) Comprehensive metabolic panel (02/20/2024 4:25 AM GLASS CLEANER) Sodium 144 135 - 145 mmol/L Potassium, [...] [facility] ([place]) Blood 02/20/2024 4:25 AM GLASS CLEANER 02/20/2024 4:58 AM GLASS CLEANER Wilver Gonzales MD LAB BLOOD ORDERABLES Fi nal Result Performing Organization Address City/State/[facility] Co de Phone Number [facility] ([place]) 1 [facility] [place] [address] * (ABNORMAL) Sepsis Lactate w/ Reflex (02/19/2024 10:56 PM GLASS CLEANER) [facility] [address] Sepsis Lactate 3.6(H) 0.7 - 2.0 mmol/L Blood 02/19/2024 10:5 6 PM GLASS CLEANER 02/19/2024 10:59 PM GLASS CLEANER Ariel Oreilly MD LAB BLOOD ORDERABLES Final Result Performing Organization Address [facility] de Phone Number [facility] ([place]) 1 [place] [address] * (ABNORMAL) Sepsis Lactate w/ Reflex (02/19/2024 7:44 PM GLASS CLEANER) [facility] [address] Sepsis Lactate 4.0(C) 0.7 - 2.0 mmol/L Comment:Critical result call ed to and read back by Angela golden ([facility]) on 02/19/2024 19:53:39 GLASS CLEANER to Rosita Moore. Blood 02/19/2024 7:44 PM GLASS CLEANER 02/19/2024 7:48 PM GLASS CLEANER us Ariel Oreilly MD LAB BLOOD ORDERABLES Final Result Performing Organization Address [facility] Co de Phone Number [facility] ([place]) 1 [facility] [place] [address] * (ABNORMAL) eGFR (02/19/2024 7:44 PM GLASS CLEANER) [facility] [address] eGFR 49(L) >=60 mL/min/1. 73 m2 Comment: [...] last reviewed 2021. Blood 02/19/2024 7:44 PM GLASS CLEANER 02/19/2024 7:48 PM GLASS CLEANER us Ariel Oreilly MD LAB BLOOD ORDERABLES Final Result [facility] ([place]) 1 [facility] [place] [address] * (ABNORMAL) Renal function panel (02/19/2024 7:44 PM GLASS CLEANER) Sodium 142 135 - 145 mmol/L Potassium, pl 3.6 3.3 - 4.9 mmol/L [facility] ([place]) Chloride 99 97 - 110 mmol/L [facility] ([place]) CO2 27 22 - 32 mmol/L [facility] ([place]) Anion gap 16(H) 2 - 15 mmol/L [facility] ([place]) BUN 35(H) 6 - 25 mg/dL [facility] ([place]) Creatinine 1.21(H) 0.60 - 1.10 mg/dL [facility] ([place]) Glucose 186 70 - 199 mg/dL [facility] ([place]) Comment: Interpretive Data Fasting glucose [...] 8.5 - 10.3 mg/dL [facility] ([place]) Phosphorus, pl 2.9 2.3 - 4.5 mg/dL [facility] ([place]) Albumin 4.0 3.5 - 5.0 g/dL [facility] ([place]) Blood 02/19/2024 7:44 PM GLASS CLEANER 02/19/2024 7:48 PM GLASS CLEANER Ariel Oreilly MD LAB BLOOD ORDERABLES Final Result Performing Organization Address City/[facility]/ZIP Co de Phone Number [facility] ([place]) 1 [facility] [place] [address] * Troponin T high-sensitivity 4-hour (02/19/2024 2:56 PM GLASS CLEANER) Trop T hs 13 <=14 ng/L Comment: Interpretive Data For further hscTnT resources including the diagnostic algorithm and an aid in interpretation, copy and paste this link: https://nrl.testcatalog.org/show/hsTrop Current Interpretive Data last revised 2020. Trop T hs delta -2 ng/L [facility] ([place]) Trop T hs interp Insignificant [facility] ([place]) Blood 02/19/2024 2:56 PM GLASS CLEANER 02/19/2024 2:59 PM GLASS CLEANER Ariel Oreilly MD LAB BLOOD ORDERABLES Final Result Performing Organization Address City/[facility]/ZIP Co de Phone Number [facility] ([place]) 1 [facility] [place] [address] * (ABNORMAL) Sepsis Lactate w/ Reflex (02/19/2024 2:56 PM GLASS CLEANER) Sepsis Lactate 3.0(H) 0.7 - 2.0 mmol/L Blood 02/19/2024 2:56 PM GLASS CLEANER 02/19/2024 2:59 PM GLASS CLEANER Ariel Oreilly MD LAB BLOOD ORDERABLES Final Result [facility] ([place]) 1 [facility] Department [place] [address] * Urinalysis reflex to microscopic and culture Urine, clean voided (02/19/2024 12:02 PM GLASS CLEANER) Color, ur Yellow Yellow Clarity, ur Clear Clear [facility] ([place]) Specific gravity, ur 1.013 1.003 - 1.030 [facility] ([place]) pH, urine 6.5 [facility] ([place]) Comment: Interpretive Data ? Urine pH is affected by diet, medications, systemic acid-base disturbances, and renal tubular function. ??pH may affect urinary stone formation. ??For example, urine pH below 6.0 may help reduce the tendency for calcium phosphate stones and pH greater than 6.0 may reduce the tendency for uric acid stone formation. Source: [facility] Current Interpretive Data was last revised on [...] ([place]) Urine, clean voided 02/19/2024 12:02 PM GLASS CLEANER 02/19/2024 12:06 PM GLASS CLEANER us Ariel Oreilly MD LAB MICROBIOLOGY - GENERAL ORDERABLES Final Result [facility] ([place]) 1 [facility] [place] [address] * CT Cervical Spine WO Contrast (02/19/2024 11:55 AM GLASS CLEANER) Anatomical Region Laterality Modality Spine N/A Computed Tomogra phy 02/19/2024 12:0 7 PM GLASS CLEANER Narrative 02/19/2024 12:26 PM GLASS CLEANER EXAM DESCRIPTION: CT HEAD WO CONTRAST; CT [...] by ??Manfred Hernandez M.D. MZ: GANESH D: ??02/19/2024 12:24 PM T: ??02/19/2024 12:26 PM Report ID: [id number] Reading Location: ??[id number] Procedure Note Manfred Hernandez MD - 02/19/2024 [...] Manfred Hernandez M.D. MZ: MZ Report ID: [id number] Reading Location: [id number] us Ariel Oreilly MD IMG CT PROCEDURES Final Res ult * CT Head WO Contrast (02/19/2024 11:55 AM GLASS CLEANER) Anatomical Region Laterality Modality Head and Neck N/A Computed Tomogra phy 02/19/2024 12:0 7 PM GLASS CLEANER Narrative 02/19/2024 12:26 PM GLASS CLEANER EXAM DESCRIPTION: CT HEAD WO CONTRAST; CT [...] by ??Manfred Hernandez M.D. MZ: GANESH D: ??02/19/2024 12:24 PM T: ??02/19/2024 12:26 PM Report ID: [id number] Reading Location: ??[id number] Procedure Note Manfred Hernandez MD - 02/19/2024 [...] Manfred Hernandez M.D. MZ: GANESH Report ID: [id number] Reading Location: [id number] Ariel Oreilly MD IMG CT PROCEDURES Final Res ult * XR Chest 1 Vw Portable (02/19/2024 11:25 AM GLASS CLEANER) Anatomical Region Laterality Modality Body, Chest N/A Computed Radiogr aphy 02/19/2024 11:5 3 AM GLASS CLEANER Narrative 02/19/2024 11:54 AM GLASS CLEANER EXAM DESCRIPTION: XR CHEST 1 VIEW REASON FOR STUDY: accidental fall ?? [facility] from home after tripping in [...] AM T: ??02/19/2024 11:54 AM Report ID: [id number] Reading Location: ??[id number] Procedure Note Felix Badillo MD - 02/19/2024 EXAM DESCRIPTION: XR CHEST 1 VIEW REASON FOR STUDY: accidental fall Pt to ER [facility] from home after tripping in [...] Felix Badillo M.D. KR: LAURA Report ID: [id number] Reading Location: [place] [address] rAiel Oreilly MD IMG XR PROCEDURES Final Res ult * (ABNORMAL) Troponin T high-sensitivity series (baseline, 2hr, 4hr, 6hr) (02/19/2024 10:59 AM GLASS CLEANER) Trop T hs 15(H) <=14 ng/L Comment: Interpretive Data For further hscTnT resources including the diagnostic algorithm and an aid in interpretation, copy and paste this link: https://nrl.testcatalog.org/show/hsTrop Current Interpretive Data last revised 2020. Blood 02/19/2024 10:5 9 AM GLASS CLEANER 02/19/2024 11:10 AM GLASS CLEANER Ariel Oreilly MD LAB BLOOD ORDERABLES Final Result [facility] [place] 1 [facility] [place] [address] * eGFR (02/19/2024 10:59 AM GLASS CLEANER) eGFR 62 >=60 mL/min/1. 73 m2 Comment: [...] reviewed 2021. Blood 02/19/2024 10:5 9 AM GLASS CLEANER 02/19/2024 11:10 AM GLASS CLEANER us Ariel Oreilly MD LAB BLOOD ORDERABLES Final Result [facility] ([place]) 1 [facility] [place] [address] * (ABNORMAL) Differential, auto (02/19/2024 10:59 AM GLASS CLEANER) Neutrophil abs 9.5(H) 1.5 - 6.5 K/cumm Imm gran abs 0.1 0.0 - 0.1 K/cumm [facility] ([place]) Lymphocyte abs 0.7(L) 0.8 - 3.3 K/cumm [facility] ([place]) Monocyte abs 0.2 0.2 - 0.8 K/cumm [facility] ([place]) [...] Imm gran pct 0.9 % [facility] ([place]) Comment: Interpretive Data Percent cell count reference ranges are not reported, since discordance with absolute values may lead to misinterpretation of CBC data. Current Interpretive Data was last revised on 2017. Lymphocyte pct 7.0 % [facility] ([place]) Comment: Interpretive Data Percent cell count reference ranges are not reported, since discordance with absolute values may lead to misinterpretation of CBC data. Current Interpretive Data was last revised on 2017. Monocyte pct 2.2 % [facility] ([place]) Comment: Interpretive Data [...] on 2017. Blood 02/19/2024 10:5 9 AM GLASS CLEANER 02/19/2024 11:10 AM GLASS CLEANER us Ariel Oreilly MD LAB BLOOD ORDERABLES Final Result [facility] ([place]) 1 [facility] [place] [address] * Pro B-type natriuretic peptide (02/19/2024 10:59 AM GLASS CLEANER) NT-proBNP 125 <=300 pg/mL Comment: Interpretive Comments: [...] Date: 2017. Blood 02/19/2024 10:5 9 AM GLASS CLEANER 02/19/2024 11:10 AM GLASS CLEANER us Ariel Oreilly MD LAB BLOOD ORDERABLES Final Result [facility] ([place]) 1 [facility] [email or web address] [address] * (ABNORMAL) CBC with auto differential (02/19/2024 10:59 AM GLASS CLEANER) WBC 10.6(H) 3.8 - 9.9 K/cumm Hgb [...] [facility] ([place]) Blood 02/19/2024 10:5 9 AM GLASS CLEANER 02/19/2024 11:10 AM GLASS CLEANER Ariel Oreilly MD LAB BLOOD ORDERABLES Final Result [facility] ([place]) 1 [facility] [email or web address] [address] * Magnesium (02/19/2024 10:59 AM GLASS CLEANER) Magnesium 1.8 1.4 - 2.5 mg/dL Blood 02/19/2024 10:5 9 AM GLASS CLEANER 02/19/2024 1:56 PM GLASS CLEANER us Ariel Oreilly MD LAB BLOOD ORDERABLES Final Result [facility] ([place]) 1 [facility] [place] [address] * (ABNORMAL) Comprehensive metabolic panel (02/19/2024 10:59 AM GLASS CLEANER) Sodium 138 135 - 145 mmol/L Comment:Dr Roman (ER) Potassium, pl 2.8(C) 3.3 - 4.9 mmol/L [facility] ([place]) Comment:Critical Result call ed by [email or web address] at 2024-02-19 11:36:01. Result Read Back by Dr Roman (ER) Chloride 91(L) 97 - 110 mmol/L [facility] ([place]) Comment:Dr Roman (ER) CO2 27 22 - 32 mmol/L [facility] ([place]) Comment:Dr Roman (ER) Anion gap 20(H) 2 - 15 mmol/L [facility] ([place]) Comment:Dr Roman (ER) BUN 34(H) 6 - 25 mg/dL [facility] ([place]) Comment:Dr Roman (ER) Creatinine 0.98 0.60 - 1.10 mg/dL [facility] ([place]) Comment:Dr Roman (ER) Glucose 182 70 - 199 mg/dL [facility] ([place]) Comment: Dr Roman (ER) Interpretive [...] 2022. Calcium 9.7 8.5 - 10.3 mg/dL [facility] ([place]) Comment:Dr Roman (ER) Bilirubin, total [...] Roman (ER) Blood 02/19/2024 10:5 9 AM GLASS CLEANER 02/19/2024 11:10 AM GLASS CLEANER Ariel Oreilly MD LAB BLOOD ORDERABLES Final Result Performing Organization Address City/[facility] Co de Phone Number [facility] ([place]) 1 [facility] [place] [address] * ECG 12 lead (02/19/2024 10:43 AM GLASS CLEANER) 02/19/2024 10:4 3 AM GLASS CLEANER Narrative [facility] - 02/19/2024 12:51 PM GLASS CLEANER Vent Rate: 87 bpm RR Interval: 685 msec IA Interval: 111 msec QRS Duration: 86 msec QT Interval: 378 msec QTC Interval: 423 msec P-R-T [place]: 66 - 67 - 64 degrees IMPRESSION: SINUS RHYTHM WITH SHORT IA INTERVAL MODERATE ST DEPRESSION ??[0.05+ mV ST DEPRESSION] ABNORMAL ECG Compared to prior EKG, ??ST segment changes are new Electronically Signed By: Chapin Padron MD Ariel Oreilly MD ECG ORDERABLES Final Resul t [facility] Reedsy [facility] * POCT glucose (02/13/2024 7:49 AM GLASS CLEANER) Glucose, POC 146 70 - 199 mg/dL Blood 02/13/2024 7:49 AM GLASS CLEANER 02/13/2024 7:49 AM GLASS CLEANER Alma Carroll MD LAB POCT ORDERABLES - DEVICE F inal Result [facility] ([place]) 1 [facility] [place] [address] * POCT glucose (02/13/2024 4:53 AM GLASS CLEANER) Glucose, POC 180 70 - 199 mg/dL Blood 02/13/2024 4:53 AM GLASS CLEANER 02/13/2024 4:53 AM GLASS CLEANER Alma Carroll MD LAB POCT ORDERABLES - DEVICE F inal Result Performing Organization Address [facility] de Phone Number [facility] ([place]) 1 [facility] [place] [address] * eGFR (02/13/2024 4:46 AM GLASS CLEANER) eGFR 74 >=60 mL/min/1. 73 m2 Comment: [...] last reviewed 2021. Blood 02/13/2024 4:46 AM GLASS CLEANER 02/13/2024 5:21 AM GLASS CLEANER us Inocencio Miranda MD LAB BLOOD ORDERABLES Final Resu lt [facility] ([place]) 1 [facility] [place] [address] * (ABNORMAL) Differential, auto (02/13/2024 4:46 AM GLASS CLEANER) Neutrophil abs 11.5(H) 1.5 - 6.5 K/cumm [...] revised on 2017. Blood 02/13/2024 4:46 AM GLASS CLEANER 02/13/2024 5:21 AM GLASS CLEANER Inocencio Miranda MD LAB BLOOD ORDERABLES Final Resu lt [facility] ([place]) 1 [facility] [place] [address] * (ABNORMAL) CBC with auto differential (02/13/2024 4:46 AM GLASS CLEANER) WBC 13.1(H) 3.8 - 9.9 K/cumm Hgb [...] RDW CV 17.2(H) 11.1 - 14.9 % [facility] ([place]) RDW SD 55.5(H) 35.7 - 48.1 fL [facility] ([place]) NRBC abs 0.00 0.00 - 0.01 K/cumm [facility] ([place]) Blood 02/13/2024 4:46 AM GLASS CLEANER 02/13/2024 5:21 AM GLASS CLEANER Inocencio Miranda MD LAB BLOOD ORDERABLES Final Resu lt [facility] ([place]) 1 [facility] [place] [address] * Magnesium (02/13/2024 4:46 AM GLASS CLEANER) Pathologist [facility] Magnesium 2.5 1.4 - 2.5 mg/dL Blood 02/13/2024 4:46 AM GLASS CLEANER 02/13/2024 5:21 AM GLASS CLEANER Inocencio Miranda MD LAB BLOOD ORDERABLES Final Resu lt [facility] ([place]) 1 [facility] [place] [address] * (ABNORMAL) Comprehensive metabolic panel (02/13/2024 4:46 AM GLASS CLEANER) Sodium 141 135 - 145 mmol/L Potassium, pl 3.7 3.3 - 4.9 mmol/L [facility] ([place]) Chloride 101 97 - 110 mmol/L [facility] ([place]) CO2 26 22 - 32 mmol/L [facility] ([place]) Anion gap 14 2 - 15 mmol/L [facility] ([place]) BUN 36(H) 6 - 25 mg/dL [facility] ([place]) Creatinine 0.85 0.60 - 1.10 mg/dL [facility] ([place]) Glucose 173 70 - 199 mg/dL [facility] ([place]) Comment: Interpretive Data Fasting glucose [...] [facility] ([place]) Blood 02/13/2024 4:46 AM GLASS CLEANER 02/13/2024 5:21 AM GLASS CLEANER us Inocencio Miranda MD LAB BLOOD ORDERABLES Final Resu lt [facility] ([place]) 1 [facility] [place] [address] * (ABNORMAL) Pneumonia PCR with aerobic culture and Gram stain Sputum (02/12/2024 9:27 PM GLASS CLEANER) Direct Specimen Exam Stain: Abundant squamous epithelial cells seen indicating excessive oropharyngeal contamination. ??Culture will not be processed further. ??Please submit another specimen. Smear results called to and read back by: Paul Gonzalez MLT ([phone]) on 02/13/2024 01:42:55 by: Tee Rincon MT Comment:Testing performed by : [facility], 1 [facility] [place] [address] Direct Specimen Exam Molecular Analysis: Abundant squamous epithelial cells observed on Gram stain. Specimen will not be processed for rapid molecular analysis. RE[facility]I [place]) Comment:Testing performed by : [facility], 1 [place]., [address] Report Final Report: This is the final report. (.) [facility] ([place]) Comment:Testing performed by : [facility], 1 [place]., [address] Sputum 02/12/2024 9:27 PM GLASS CLEANER 02/13/2024 12:47 AM GLASS CLEANER Narrative [facility] ([place]) - 02/13/2024 7:31 AM GLASS CLEANER When rapid molecular testing results are reported, testing completed using the INVIDI TechnologiesArray Pneumonia Panel. ??This molecular assay detects: Acinetobacter [...] performance characteristics have been confirmed by the [facility]. ??The performance of the FilmArray Pneumonia Panel has not been established for monitoring treatment of infection and bacterial nucleic acids may persist independent of organism viability. Inocencio Miranda MD LAB MICROBIOLOGY - GENERAL [place] FERGUSON Final Result Performing Organization Address [facility] Co de Phone Number [facility] ([place]) 1 [place] [address] * POCT glucose (02/12/2024 9:17 PM GLASS CLEANER) Glucose, POC 124 70 - 199 mg/dL Blood 02/12/2024 9:17 PM GLASS CLEANER 02/12/2024 9:17 PM GLASS CLEANER Alma Carroll MD LAB POCT ORDERABLES - DEVICE F inal Result Performing Organization Address [facility] Co de Phone Number [facility] ([place]) 1 [place] [address] * (ABNORMAL) POCT glucose (02/12/2024 4:56 PM GLASS CLEANER) Glucose, POC 219(H) 70 - 199 mg/dL Comment:Glu2: RN/MD Notified Blood 02/12/2024 4:56 PM GLASS CLEANER 02/12/2024 4:56 PM GLASS CLEANER Alma Carroll MD LAB POCT ORDERABLES - DEVICE F inal Result Performing Organization Address [facility] Co de Phone Number [facility] ([place]) [address] [place] [address] [place] [address] * TRANSTHORACIC ECHO (TTE) COMPLETE W DOPPLER/CF WO CONTRAST (02/12/2024 12:59 PM GLASS CLEANER) Anatomical Region Laterality Modality Ultrasound 02/12/2024 1:43 PM GLASS CLEANER Narrative 02/12/2024 2:30 PM GLASS CLEANER [address] [address] Echocardiogram Report Patient Name: MONSE BOUCHER J : 1955 Study Date: 02/12/2024 1:43:08 PM Gender: F Tech: AA Location: [id number] Ref Provider: ALMA CARROLL Height(Cm): BSA: ??Weight(Kg): [...] Signed By: Dr Bernabe Zamora 2024-02-12 14:29:58 GLASS CLEANER Procedure Note Bernabe Zamora MD - 02/12/2024 [address] [place] [address] Echocardiogram Report Patient Name: MONSE BOUCHER J : 1955 Study Date: 02/12/2024 1:43:08 PM Gender: F Tech: Location: [place] [address] Ref Provider: ALMA CARROLL Height(Cm): BSA: Weight(Kg): [...] Signed By: Dr Bernabe Zamora 2024-02-12 14:29:58 [employer] Alma Carroll MD CV ECHO PROCEDURES Final Resul t * POCT glucose (02/12/2024 12:17 PM [employer]) Glucose, POC 131 70 - 199 mg/dL Blood 02/12/2024 12:1 7 PM [employer] 02/12/2024 12:17 PM [employer] us Alma Carroll MD LAB POCT ORDERABLES - DEVICE F inal Result Performing Organization Address City/State/[facility] Co de Phone Number REJI CHAMBERS ([email or web address]) 1 [facility] [place] [address] * (ABNORMAL) Lactate (02/12/2024 7:58 AM GLASS CLEANER) Lactate 2.9(H) 0.7 - 2.0 mmol/L Blood 02/12/2024 7:58 AM GLASS CLEANER 02/12/2024 8:07 AM GLASS CLEANER Narrative REJI CHAMBERS ([place]) - 02/12/2024 8:15 AM GLASS CLEANER unable to obtain labs, both phlebs attempted. 02/11/2024 10:39:42 GLASS CLEANER us Inocnecio Miranda MD LAB BLOOD ORDERABLES Final Resu lt Performing Organization Address [facility] Co de Phone Number REJI CHAMBERS ([place]) 1 [facility] [place] [address] * eGFR (02/12/2024 7:58 AM GLASS CLEANER) eGFR 73 >=60 mL/min/1. 73 m2 Comment: [...] Inclusion of Race in Diagnosing Kidney Disease, MARLEESN 2020). The CKD-EPI equation should not be used for patients with unstable renal function and has not been validated in children and those over 70. Current interpretive data was last reviewed 2021. Blood 02/12/2024 7:58 AM GLASS CLEANER 02/12/2024 8:08 AM GLASS CLEANER us Inocencio Miranda MD LAB BLOOD ORDERABLES Final Resu lt [facility] ([place]) 1 [facility] [place] [address] * (ABNORMAL) Differential, auto (02/12/2024 7:58 AM GLASS CLEANER) Neutrophil abs 12.7(H) 1.5 - 6.5 K/cumm [...] 2017. Basophil pct 0.1 % [facility] ([place]) Comment: Interpretive Data Percent cell count reference ranges are not reported, since discordance with absolute values may lead to misinterpretation of CBC data. Current Interpretive Data was last revised on 2017. Blood 02/12/2024 7:58 AM GLASS CLEANER 02/12/2024 8:08 AM GLASS CLEANER Inocencio Miranda MD LAB BLOOD ORDERABLES Final Resu lt REJI CHAMBERS ([place]) 1 [facility] [place] [address] * Procalcitonin (02/12/2024 7:58 AM GLASS CLEANER) Procalcitonin 0.09 <=0.25 ng/mL Comment:Testing performed by : [facility], [place]., [address] Blood 02/12/2024 7:58 AM GLASS CLEANER 02/12/2024 1:32 PM GLASS CLEANER Inocencio Miranda MD LAB BLOOD ORDERABLES Final Resu lt REJI CHAMBERS ([place]) 1 [facility] [place] [address] * (ABNORMAL) CBC with auto differential (02/12/2024 7:58 AM GLASS CLEANER) WBC 14.7(H) 3.8 - 9.9 K/cumm Hgb [...] 29.9(L) 32.3 - 35.7 g/dL [facility] ([place]) RDW CV 17.7(H) 11.1 - 14.9 % [facility] ([place]) RDW SD 57.6(H) 35.7 - 48.1 fL [facility] ([place]) NRBC abs 0.00 0.00 - 0.01 K/cumm [facility] ([place]) Blood 02/12/2024 7:58 AM GLASS CLEANER 02/12/2024 8:08 AM GLASS CLEANER Narrative [facility] ([place]) - 02/12/2024 8:11 AM GLASS CLEANER U/O, rn notified. Trying again at 10am. [id number] 02/11/2024 08:12:24 GLASS CLEANER us Inocencio Miranda MD LAB BLOOD ORDERABLES Final Resu lt [facility] ([place]) 1 [facility] [place] [address] * Magnesium (02/12/2024 7:58 AM GLASS CLEANER) Magnesium 2.3 1.4 - 2.5 mg/dL Blood 02/12/2024 7:58 AM GLASS CLEANER 02/12/2024 8:08 AM GLASS CLEANER us Inocencio Miranda MD LAB BLOOD ORDERABLES Final Resu lt [facility] ([place]) 1 [facility] [place] [address] * (ABNORMAL) Comprehensive metabolic panel (02/12/2024 7:58 AM GLASS CLEANER) Sodium 145 135 - 145 mmol/L Potassium, pl 3.4 3.3 - 4.9 mmol/L [facility] ([place]) Chloride 104 97 - 110 mmol/L [facility] ([place]) CO2 24 22 - 32 mmol/L [facility] ([place]) Anion gap 17(H) 2 - 15 mmol/L [facility] ([place]) BUN 29(H) 6 - 25 mg/dL [facility] ([place]) Creatinine 0.86 0.60 - 1.10 mg/dL [facility] ([place]) Glucose 143 70 - 199 mg/dL [facility] ([place]) [...] [facility] ([place]) Blood 02/12/2024 7:58 AM GLASS CLEANER 02/12/2024 8:08 AM GLASS CLEANER us Inocencio Miranda MD LAB BLOOD ORDERABLES Final Resu lt REJI CHAMBERS ([place]) 1 [facility] [place] [address] * POCT glucose (02/12/2024 7:44 AM GLASS CLEANER) Glucose, POC 141 70 - 199 mg/dL Blood 02/12/2024 7:44 AM GLASS CLEANER 02/12/2024 7:44 AM GLASS CLEANER us Alma Carroll MD LAB POCT ORDERABLES - DEVICE F inal Result Performing Organization Address [facility] Co de Phone Number REJI CHAMBERS ([place]) 1 [facility] [place] [address] * POCT glucose (02/12/2024 4:17 AM GLASS CLEANER) Glucose, POC 194 70 - 199 mg/dL Blood 02/12/2024 4:17 AM GLASS CLEANER 02/12/2024 4:17 AM GLASS CLEANER us Alma Carroll MD LAB POCT ORDERABLES - DEVICE F inal Result Performing Organization Address [facility]/ZIP Co de Phone Number REJI CHAMBERS ([place]) 1 [facility] [place] [address] * Lactate (02/12/2024 3:55 AM GLASS CLEANER) Lactate 1.6 0.7 - 2.0 mmol/L Blood 02/12/2024 3:55 AM GLASS CLEANER 02/12/2024 4:02 AM GLASS CLEANER us Alma Carroll MD LAB BLOOD ORDERABLES Final Res ult REJI CHAMBERS ([place]) 1 [facility] [place] [address] * eGFR (02/12/2024 3:55 AM GLASS CLEANER) eGFR 70 >=60 mL/min/1. 73 m2 Comment: [...] last reviewed 2021. Blood 02/12/2024 3:55 AM GLASS CLEANER 02/12/2024 4:02 AM GLASS CLEANER us Inocencio Miranda MD LAB BLOOD ORDERABLES Final Resu lt REJI CHAMBERS ([place]) 1 [facility] [place] [address] * (ABNORMAL) Differential, auto (02/12/2024 3:55 AM GLASS CLEANER) Neutrophil abs 11.9(H) 1.5 - 6.5 K/cumm [...] revised on 2017. Blood 02/12/2024 3:55 AM GLASS CLEANER 02/12/2024 4:02 AM GLASS CLEANER Inocencio Miranda MD LAB BLOOD ORDERABLES Final Resu lt [facility] ([place]) 1 [facility] [email or web address] [address] * (ABNORMAL) CBC with auto differential (02/12/2024 3:55 AM GLASS CLEANER) WBC 13.2(H) 3.8 - 9.9 K/cumm Hgb [...] [facility] ([place]) Blood 02/12/2024 3:55 AM GLASS CLEANER 02/12/2024 4:02 AM GLASS CLEANER us Inocencio Miranda MD LAB BLOOD ORDERABLES Final Resu lt REJI CHAMBERS ([place]) 1 [facility] [email or web address] [address] * Magnesium (02/12/2024 3:55 AM GLASS CLEANER) Magnesium 2.2 1.4 - 2.5 mg/dL Blood 02/12/2024 3:55 AM GLASS CLEANER 02/12/2024 4:02 AM GLASS CLEANER us Inocencio Miranda MD LAB BLOOD ORDERABLES Final Resu lt REJI CHAMBERS ([place]) 1 [facility] [place] [address] * (ABNORMAL) Comprehensive metabolic panel (02/12/2024 3:55 AM GLASS CLEANER) Sodium 143 135 - 145 mmol/L Potassium, pl 3.5 3.3 - 4.9 mmol/L [facility] ([place]) Chloride 105 97 - 110 mmol/L [facility] ([place]) CO2 26 22 - 32 mmol/L [facility] ([place]) Anion gap 11 2 - 15 mmol/L [facility] ([place]) BUN 28(H) 6 - 25 mg/dL [facility] ([place]) Creatinine 0.89 0.60 - 1.10 [...] ([place]) AST 28 10 - 45 Units/L REJI CHAMBERS ([place]) Blood 02/12/2024 3:55 AM GLASS CLEANER 02/12/2024 4:02 AM GLASS CLEANER us Inocencio Miranda MD LAB BLOOD ORDERABLES Final Resu lt Performing Organization Address [facility]/ZIP Co de Phone Number REJI CHAMBERS ([place]) 1 [facility] [place] [address] * POCT glucose (02/12/2024 12:27 AM GLASS CLEANER) Glucose, POC 186 70 - 199 mg/dL Blood 02/12/2024 12:2 7 AM GLASS CLEANER 02/12/2024 12:27 AM GLASS CLEANER us Alma Carroll MD LAB POCT ORDERABLES - DEVICE F inal Result Performing Organization Address [facility] Co de Phone Number REJI CHAMBERS ([place]) 1 [facility] [place] [address] * POCT glucose (02/11/2024 8:32 PM GLASS CLEANER) Glucose, POC 156 70 - 199 mg/dL Blood 02/11/2024 8:32 PM GLASS CLEANER 02/11/2024 8:32 PM GLASS CLEANER us Alma Carroll MD LAB POCT ORDERABLES - DEVICE F inal Result Performing Organization Address [facility] Co de Phone Number REJI CHAMBERS ([place]) 1 [facility] [place] [address] * POCT glucose (02/11/2024 5:01 PM GLASS CLEANER) Glucose, POC 158 70 - 199 mg/dL Blood 02/11/2024 5:01 PM GLASS CLEANER 02/11/2024 5:01 PM GLASS CLEANER us Alma Carroll MD LAB POCT ORDERABLES - DEVICE F inal Result REJI CHAMBERS [place]) 1 [facility] [place] [address] * CT Chest WO Contrast (02/11/2024 12:37 PM GLASS CLEANER) Anatomical Region Laterality Modality Body N/A Computed Tomogra phy 02/11/2024 3:08 PM GLASS CLEANER Narrative 02/11/2024 3:13 PM GLASS CLEANER EXAM DESCRIPTION: ?? CT CHEST WO CONTRAST [...] 3:13 PM - Electronically signed by ??Manfred Smith.D. MZ: MZ D: ??02/11/2024 3:13 PM T: ??02/11/2024 3:13 PM Report ID: [id number] Reading Location: ??[id number] Procedure Note Manfred Hernandez MD - 02/11/2024 [...] Manfred Hernandez M.D. MZ: GANESH Report ID: [id number] Reading Location: [id number] Alma Carroll MD [facility] PROCEDURES Final Result * Strep pneumoniae antigen, urine Urine (02/11/2024 7:50 AM GLASS CLEANER) S. pneumoniae Ag Negative Negative Comment: Interpretive [...] last revised on 2022 Testing performed by: [facility], [address] [place] [address]., [address] Urine 02/11/2024 7:50 AM GLASS CLEANER 02/11/2024 1:29 PM GLASS CLEANER Inocencio Miranda MD LAB MICROBIOLOGY [facility] Final Result Performing Organization Address City/[facility] Co de Phone Number [facility] ([place]) 1 [facility] [place] [address] * Legionella antigen Urine (02/11/2024 7:50 AM GLASS CLEANER) Pathologist [facility] Legionella Ag Negative Negative Comment: Interpretive Data This test detects only Legionella pneumophila serogroup 1 antigen. ?? Current interpretive data was last revised on 2019. Testing performed by: [facility], [address] [place] [address]., [address] Urine 02/11/2024 7:50 AM GLASS CLEANER 02/11/2024 1:29 PM GLASS CLEANER Inocencio Miranda MD LAB MICROBIOLOGY - GENERAL ORDE RABLES Final Result Performing Organization Address City/[facility]/ZIP Co de Phone Number [facility] ([place]) 1 [facility] [place] [address] * (ABNORMAL) MRSA Only (Staphylococcus aureus) PCR Nasal (02/11/2024 6:12 AM GLASS CLEANER) Pathologist [facility] PCR Scrn, Methicillin resistant Staphylococcus aureus (MRSA) Detected( A) Not Detected Comment: Interpretive Data Testing performed using Nucleic Acid Amplification with the Cepheid Xpert MRSA NxG Assay. This assay detects target DNA from mecA, mecC and the SCCmec insertion site of Staphylococcus aureus using Real-Time PCR and has been cleared by the FDA. Performance characteristics have been verified by the [facility]. Current Interpretive Data was last revised on 2022 Nasal 02/11/2024 6:12 AM GLASS CLEANER 02/11/2024 6:27 AM GLASS CLEANER Inocencio Miranda MD LAB MICROBIOLOGY - GENERAL [place] Final Result Performing Organization Address [facility] Co de Phone Number REJI CHAMBERS ([place]) 1 [facility] [place] [address] * Troponin T high-sensitivity 6-hour (02/10/2024 10:46 PM GLASS CLEANER) Trop T hs 8 <=14 ng/L Comment: Interpretive Data For further hscTnT resources including the diagnostic algorithm and an aid in interpretation, copy and paste this link: https://nrl.testcatalog.org/show/hsTrop Current Interpretive Data last revised 2020. Trop T hs delta -2 ng/L [facility] ([place]) Trop T hs interp Insignificant [facility] ([place]) Blood 02/10/2024 10:4 6 PM GLASS CLEANER 02/10/2024 10:52 PM GLASS CLEANER Joleen LOPEZ LAB BLOOD ORDERABLES Alice l Result Performing Organization Address City/[facility]/ZIP Co de Phone Number REJI CHAMBERS ([place]) 1 [facility] [place] [address] * (ABNORMAL) Sepsis Lactate w/ Reflex (02/10/2024 10:46 PM GLASS CLEANER) Sepsis Lactate 2.6(H) 0.7 - 2.0 mmol/L Blood 02/10/2024 10:4 6 PM GLASS CLEANER 02/10/2024 10:52 PM GLASS CLEANER Narrative [facility] ([place]) - 02/10/2024 10:56 PM GLASS CLEANER kimmy vazquez said to grab all labs now 2240 Joleen LOPEZ LAB BLOOD ORDERABLES Alice l Result Performing Organization Address City/[facility] Co de Phone Number REJI CHAMBERS ([place]) 1 [facility] [place] [address] * eGFR (02/10/2024 10:46 PM GLASS CLEANER) eGFR 89 >=60 mL/min/1. 73 m2 Comment: [...] reviewed 2021. Blood 02/10/2024 10:4 6 PM GLASS CLEANER 02/10/2024 10:52 PM GLASS CLEANER Joleen LOPEZ LAB BLOOD ORDERABLES Alice l Result Performing Organization Address City/[facility]/ZIP Co de Phone Number REJI CHAMBERS ([place]) 1 [facility] [place] [address] * (ABNORMAL) Differential, auto (02/10/2024 10:46 PM GLASS CLEANER) Neutrophil abs 13.3(H) 1.5 - 6.5 K/cumm Imm gran abs 0.1 0.0 - 0.1 K/cumm [facility] ([place]) Lymphocyte abs 0.4(L) 0.8 - 3.3 K/cumm [facility] ([place]) Monocyte abs 0.3 0.2 - 0.8 K/cumm [facility] ([place]) Eosinophil abs 0.0 0.0 - 0.5 K/cumm [facility] ([place]) Basophil abs 0.0 0.0 - 0.1 K/cumm [facility] ([place]) Neutrophil pct 94.6 % [facility] ([place]) Comment: Interpretive Data Percent cell count reference ranges are not reported, since discordance with absolute values may lead to misinterpretation of CBC data. Current Interpretive Data was last revised on 2017. Imm gran pct 0.4 % [facility] ([place]) Comment: Interpretive Data Percent cell count reference ranges are not reported, since discordance with absolute values may lead to misinterpretation of CBC data. Current Interpretive Data was last revised on 2017. Lymphocyte pct 2.7 % [facility] ([place]) Comment: Interpretive Data Percent cell count reference ranges are not reported, since discordance with absolute values may lead to misinterpretation of CBC data. Current Interpretive Data was last revised on 2017. Monocyte pct 2.1 % [facility] ([place]) Comment: Interpretive Data Percent cell count reference ranges are not reported, since discordance with absolute values may lead to misinterpretation of CBC data. Current Interpretive Data was last revised on 2017. Eosinophil pct 0.1 % [facility] ([place]) Comment: Interpretive Data Percent cell count reference ranges are not reported, since discordance with absolute values may lead to misinterpretation of CBC data. Current Interpretive Data was last revised on 2017. Basophil pct 0.1 % [facility] ([place]) Comment: Interpretive Data Percent cell count reference ranges are not reported, since discordance with absolute values may lead to misinterpretation of CBC data. Current Interpretive Data was last revised on 2017. Blood 02/10/2024 10:4 6 PM GLASS CLEANER 02/10/2024 10:52 PM GLASS CLEANER Joleen LOPEZ LAB BLOOD ORDERABLES Alice l Result REJI CHAMBERS ([place]) 1 [facility] [place] [address] * (ABNORMAL) CBC with auto differential (02/10/2024 10:46 PM GLASS CLEANER) WBC 14.1(H) 3.8 - 9.9 K/cumm Hgb 9.9(L) 11.9 - 15.5 g/dL [facility] ([place]) Hct 32.7(L) 35.6 - 45.5 % [facility] ([place]) Plt 335 150 - 400 K/cumm [facility] MPV 10.1 9.1 - 12.3 fL [facility] ([place] RBC 3.75(L) 3.90 - 5.20 M/cumm [facility] ([place]) MCV 87.2 81.3 - 96.4 fL [facility] ([place]) Comment:MCV delta possibly d ue to low sample volume. MCH 26.4(L) 27.1 - 33.3 pg [facility] ([place]) MCHC 30.3(L) 32.3 - 35.7 g/dL [facility] ([place]) RDW CV 17.5(H) 11.1 - 14.9 % [facility] ([place]) RDW SD 55.9(H) 35.7 - 48.1 fL [facility] ([place]) NRBC abs 0.00 0.00 - 0.01 K/cumm [facility] ([place]) Blood 02/10/2024 10:4 6 PM GLASS CLEANER 02/10/2024 10:52 PM GLASS CLEANER Joleen LOPEZ LAB BLOOD ORDERABLES Alice l Result [facility] ([place]) 1 [facility] [place] [address] * (ABNORMAL) Comprehensive metabolic panel (02/10/2024 10:46 PM GLASS CLEANER) Sodium 140 135 - 145 mmol/L Potassium, pl 3.7 3.3 - 4.9 mmol/L [facility] ([place]) Chloride 103 97 - 110 mmol/L [facility] ([place]) CO2 24 22 - 32 mmol/L [facility] ([place]) Anion gap 13 2 - 15 mmol/L [facility] ([place]) BUN 18 6 - 25 mg/dL [facility] ([place]) Creatinine 0.73 0.60 - 1.10 [...] S pecimen Blood 02/10/2024 10:4 6 PM GLASS CLEANER 02/10/2024 10:52 PM GLASS CLEANER Joleen LOPEZ LAB BLOOD ORDERABLES Alice l Result REJI CHAMBERS ([place]) 1 [facility] [place] [address] * Troponin T high-sensitivity 4-hour (02/10/2024 8:55 PM GLASS CLEANER) Trop T hs 9 <=14 ng/L Comment: Interpretive Data For further hscTnT resources including the diagnostic algorithm and an aid in interpretation, copy and paste this link: https://nrl.testcatalog.org/show/hsTrop Current Interpretive Data last revised 2020. Trop T hs delta -1 ng/L [facility] ([place]) Trop T hs interp Insignificant [facility] ([place]) Blood 02/10/2024 8:55 PM GLASS CLEANER 02/10/2024 9:13 PM GLASS CLEANER Joleen LOPEZ LAB BLOOD ORDERABLES Alice l Result Performing Organization Address City/[facility]/ZIP Co de Phone Number REJI CHAMBERS ([place]) 1 [facility] [place] [address] * (ABNORMAL) Sepsis Lactate w/ Reflex (02/10/2024 8:55 PM GLASS CLEANER) Sepsis Lactate 3.2(H) 0.7 - 2.0 mmol/L Blood 02/10/2024 8:55 PM GLASS CLEANER 02/10/2024 9:12 PM GLASS CLEANER Joleen LOPEZ LAB BLOOD ORDERABLES Alice l Result REJI CH[facility]BERS ([place]) 1 [facility] [place] [address] * XR Chest 1 Vw Portable (02/10/2024 6:31 PM GLASS CLEANER) Anatomical Region Laterality Modality Body, Chest N/A Computed Radiogr aphy 02/10/2024 6:39 PM GLASS CLEANER Narrative 02/10/2024 6:41 PM GLASS CLEANER EXAM DESCRIPTION: XR CHEST 1 VIEW REASON FOR STUDY: sob ?? Pt [facility] ED [facility] from home for SOB x [...] Electronically signed by ??Felix Badillo M.D. KR: KR D: ??02/10/2024 6:41 PM T: ??02/10/2024 6:41 PM Report ID: [id number] Reading Location: ??[id number] Procedure Note Felix Badillo MD - 02/10/2024 EXAM DESCRIPTION: XR CHEST 1 VIEW REASON FOR STUDY: sob Pt arrives to ED [facility] from home for SOB x [...] Electronically signed by Felix Badillo M.D. KR: KR Report ID: [id number] Reading Location: [id number] Joleen LOPEZ IMG XR PROCEDURES Final R esult * Troponin T high-sensitivity 2-hour (02/10/2024 6:24 PM GLASS CLEANER) Trop T hs 11 <=14 ng/L Comment: Interpretive Data For further hscTnT resources including the diagnostic algorithm and an aid in interpretation, copy and paste this link: https://nrl.testcatalog.org/show/hsTrop Current Interpretive Data last revised 2020. Trop T hs delta 1 ng/L [facility] ([place]) Trop T hs interp Insignificant [facility] ([place]) Blood 02/10/2024 6:24 PM GLASS CLEANER 02/10/2024 6:31 PM GLASS CLEANER Joleen LOPEZ LAB BLOOD ORDERABLES Alice l Result [facility] ([place]) 1 [facility] [place] [address] * Blood culture Blood Peripheral (02/10/2024 6:24 PM GLASS CLEANER) Report Final Report: No growth Comment:Testing performed by : [facility], 1 [facility] [place] [address] Blood (Peripheral) 02/10/2024 6:24 PM GLASS CLEANER 02/10/2024 11:47 PM GLASS CLEANER Narrative [facility] ([place]) - 02/15/2024 7:00 AM GLASS CLEANER From a different site than #1. Draw [...] organism identification may be performed using the [employer] Gram-Positive Blood Culture Assay. This assay detects microbial DNA in positive blood culture broth via hybridization of target DNA to capture oligonucleotides on a microarray. This assay has been cleared by the [place] Food and Drug Administration and its performance characteristics have been verified by the [facility]. 5. ?For questions about this culture, contact the Microbiology Laboratory at [phone]. Interpretive data was last revised on 2019. Joleen LOPEZ LAB MICROBIOLOGY - GENERA L ORDERABLES Final Result RE[facility]I [facility] ([place]) 1 [facility] Department of Laboratories [place], [place] [address] * Blood culture Blood Peripheral (02/10/2024 6:24 PM GLASS CLEANER) Report Final Report: No growth Comment:Testing performed by : [facility], 1 [facility], [place]., [address] Blood (Peripheral) 02/10/2024 6:24 PM GLASS CLEANER 02/10/2024 11:47 PM GLASS CLEANER Narrative [facility] ([place]) - 02/15/2024 7:00 AM GLASS CLEANER Draw Blood cultures before administration of Antibiotics [...] organism identification may be performed using the [employer] Gram-Positive Blood Culture Assay. This assay detects microbial DNA in positive blood culture broth via hybridization of target DNA to capture oligonucleotides on a microarray. This assay has been cleared by the [place] Food and Drug Administration and its performance characteristics have been verified by the [facility]. 5. ?For questions about this culture, contact the Microbiology Laboratory at [phone]. Interpretive data was last revised on 2019. Joleen LOPEZ LAB MICROBIOLOGY - GENERA L ORDERABLES Final Result [facility] ([place]) 1 [facility] [place] [address] * Influenza A/B, RSV, and COVID-19 PCR Nasopharyngeal (02/10/2024 5:47 PM GLASS CLEANER) Pathologist [facility] COVID-19 RNA Negative Negative Influenza A RNA Negative Negative [facility] ([place]) Influenza B RNA Negative Negative [facility] ([place]) RSV RNA Negative Negative [facility] ([place]) Comment: Interpretive data: Testing performed by [facility]. This test is performed using the Cepheid Xpert Xpress CoV-2/Flu/RSV plus assay. This is a multiplex, real- time reverse transcriptase PCR assay intended for the qualitative detection of nucleic acid from SARS-CoV-2, influenza A, influenza B, and respiratory syncytial virus. This assay has been cleared by the [place] Food and Drug administration. The performance characteristics have been verified by the [facility]. ?? Results must be considered in the clinical context, and a negative result does not rule out infection. Interpretive Data last revised 2023 Nasopharyngeal 02/10/2024 5: 47 PM GLASS CLEANER 02/10/2024 5:52 PM GLASS CLEANER Narrative [facility] ([place]) - 02/10/2024 6:33 PM GLASS CLEANER Is the Patient experiencing symptoms consistent with COVID?->Yes Joleen LOPEZ LAB MICROBIOLOGY - GENERA L ORDERABLES Final Result Performing Organization Address [facility]/ZIP Co de Phone Number [facility] ([place]) 1 [facility] [place] [address] * (ABNORMAL) Sepsis Lactate w/ Reflex (02/10/2024 5:47 PM GLASS CLEANER) Pathologist [facility] Sepsis Lactate 3.7(H) 0.7 - 2.0 mmol/L Blood 02/10/2024 5:47 PM GLASS CLEANER 02/10/2024 5:52 PM GLASS CLEANER Joleen LOPEZ LAB BLOOD ORDERABLES Alice l Result Performing Organization Address City/[facility]/ZIP Co de Phone Number [facility] SYSTEM ([place]) 1 [facility] [place] [address] * Blood gas, venous (02/10/2024 5:47 PM GLASS CLEANER) pH, Venous 7.39 7.32 - 7.43 PCO2, Venous 42 40 - 50 mmHg [facility] ([place]) PO2, Venous 68 mmHg [facility] A ([place]) HCO3 Venous, Calculated 25 20 - 30 mmol/L [facility] ([place]) BE, venous 0 mmol/L [facility] ([place]) Comment: Interpretive Data No Reference Range Established Current Interpretive Data was last revised on 2017. Blood 02/10/2024 5:47 PM GLASS CLEANER 02/10/2024 5:52 PM GLASS CLEANER Joleen LOPEZ LAB BLOOD ORDERABLES Alice l Result Performing Organization Address [facility] Co de Phone Number REJI CHAMBERS ([place]) [address] [place] [address] [place] [address] * Troponin T high-sensitivity series (baseline, 2hr, 4hr, 6hr) (02/10/2024 4:50 PM GLASS CLEANER) Pathologist [facility] Trop T hs 10 <=14 ng/L Comment: Interpretive Data For further hscTnT resources including the diagnostic algorithm and an aid in interpretation, copy and paste this link: https://nrl.testcatalog.org/show/hsTrop Current Interpretive Data last revised 2020. Blood 02/10/2024 4:50 PM GLASS CLEANER 02/10/2024 5:30 PM GLASS CLEANER Joleen LOPEZ LAB BLOOD ORDERABLES Alice l Result Performing Organization Address [facility] Co de Phone Number REJI CHAMBERS ([place]) 1 [facility] [place] [address] * eGFR (02/10/2024 4:50 PM GLASS CLEANER) eGFR 83 >=60 mL/min/1. 73 m2 Comment: [...] last reviewed 2021. Blood 02/10/2024 4:50 PM GLASS CLEANER 02/10/2024 5:30 PM GLASS CLEANER us Joleen LOPEZ LAB BLOOD ORDERABLES Alice salazar Result [facility] ([place]) 1 [facility] [place] [address] * (ABNORMAL) Differential, auto (02/10/2024 4:50 PM GLASS CLEANER) Neutrophil abs 13.8(H) 1.5 - 6.5 K/cumm [...] revised on 2017. Blood 02/10/2024 4:50 PM GLASS CLEANER 02/10/2024 5:30 PM GLASS CLEANER Joleen LOPEZ LAB BLOOD ORDERABLES Alice l Result REJI REYES ([place]) 1 [facility] Department [place] [address] * (ABNORMAL) Pro B-type natriuretic peptide (02/10/2024 4:50 PM GLASS CLEANER) NT-proBNP 976(H) <=300 pg/mL Comment: Interpretive Comments: [...] Data Last Revised Date: 2017. Blood 02/10/2024 4:50 PM GLASS CLEANER 02/10/2024 5:30 PM GLASS CLEANER us Joleen LOPEZ LAB BLOOD ORDERABLES Alice salazar Result [facility] ([place]) 1 [facility] Department of Laboratories [place], [place] [id number] * (ABNORMAL) CBC with auto differential (02/10/2024 4:50 PM GLASS CLEANER) WBC 15.1(H) 3.8 - 9.9 K/cumm Hgb 11.2(L) 11.9 - 15.5 g/dL [facility] ([place]) Hct 40.2 35.6 - 45.5 % [facility] ([place]) Plt 365 150 - 400 K/cumm [facility] ([place]) MPV 10.1 9.1 - 12.3 fL [facility] ([place]) RBC 4.18 3.90 - 5.20 M/cumm [facility] ([place]) MCV 96.2 81.3 - 96.4 fL [facility] ([place]) MCH 26.8(L) 27.1 - 33.3 pg [facility] ([place]) MCHC 27.9(L) 32.3 - 35.7 g/dL [facility] ([place]) RDW CV 18.2(H) 11.1 - 14.9 % [facility] ([place]) RDW SD 63.8(H) 35.7 - 48.1 fL [facility] ([place]) NRBC abs 0.08(H) 0.00 - 0.01 K/cumm [facility] ([place]) Blood 02/10/2024 4:50 PM GLASS CLEANER 02/10/2024 5:30 PM GLASS CLEANER us Joleen LOPEZ LAB BLOOD ORDERABLES Alice salazar Result [facility] ([place]) 1 [facility] Department [place] [address] * D-dimer, quantitative (02/10/2024 4:50 PM GLASS CLEANER) D-Dimer <215 <=499 ng/mL FEU [facility] ([place]) Comment: Interpretive data FDA approved the [...] 68, VTE cut-off 680 ng/ml FEU. References; Schoutdebra HT et al. Brit Med J. 2013;346:f2492. Kierra RICHARDS et al. Annals Int Med. 2015;163:701-11. Current interpretive data was last revised on 2019. Blood 02/10/2024 4:50 PM GLASS CLEANER 02/10/2024 5:30 PM GLASS CLEANER us Joleen LOPEZ LAB BLOOD ORDERABLES Alice salazar Result [facility] ([place]) 1 [facility] [place] [address] * (ABNORMAL) Comprehensive metabolic panel (02/10/2024 4:50 PM GLASS CLEANER) Sodium 138 135 - 145 mmol/L Potassium, pl 4.3 3.3 - 4.9 mmol/L [facility] ([place]) Comment:Slightly Hemolyzed S pecimen. Results may be affected. Chloride 99 97 - 110 mmol/L [facility] ([place]) CO2 22 22 - 32 mmol/L [facility] ([place]) Anion gap 17(H) 2 - 15 mmol/L [facility] ([place]) BUN 17 6 - 25 mg/dL [facility] ([place]) Creatinine 0.77 0.60 - 1.10 mg/dL [facility] ([place]) Glucose 186 70 - 199 mg/dL [facility] ([place]) Comment: Interpretive Data Fasting glucose [...] 2022. Calcium 10.4(H) 8.5 - 10.3 mg/dL [facility] ([place]) [...] 40 10 - 45 Units/L [facility] ([place]) Comment: Hemolysis present. ??Results may be affected. Slightly Hemolyzed Specimen Blood 02/10/2024 4:50 PM GLASS CLEANER 02/10/2024 5:30 PM GLASS CLEANER Joleen LOPEZ LAB BLOOD ORDERABLES Alice l Result Performing Organization Address City/[facility] Co de Phone Number [facility] ([place]) 1 [facility] [place] [address] * ECG 12 lead (02/10/2024 4:43 PM GLASS CLEANER) 02/10/2024 4:43 PM GLASS CLEANER Narrative [facility] - 02/12/2024 2:28 PM GLASS CLEANER Vent Rate: 111 bpm RR Interval: 539 msec IA Interval: 119 msec QRS Duration: 82 msec QT Interval: 320 msec QTC Interval: 385 msec P-R-T [place]: 54 - 68 - 54 degrees IMPRESSION: SINUS TACHYCARDIA WITH SHORT IA INTERVAL ABNORMAL RHYTHM ECG No change compared to prior EKG Electronically Signed By: Thang BAILONB Joleen LOPEZ ECG ORDERABLES Final Res ult Performing Organization Address City/[facility] Co de Phone Number [facility] Reedsy [facility] from Last 3 Months Additional Health Concerns 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
--- OUTSIDE RECORDS SUMMARY | 2024-04-16 12:01 | XMS_ITS | Encounter Summary ---
Author Organization [facility] Address [address] [place] [address] Phone Care Team Providers Care Field Foreman Name Role Phone Fernando Rucker MD Primary Care Provider Sylvester Graves MD Unavailable [phone] Encounter Details Date Type Department Care Team (Late Contact Info) Description 03/28/2020 [facility] [address] [place] [phone] Wendy Porras, COMIC ILLUSTRATOR, COMPRESSOR MECHANIC [address] [place] [address] Social History Tobacco Use Types [...] Description 12/20/2024 10:00 AM CDT [facility] [place] [phone] Angela Ferrara, COMIC ILLUSTRATOR, MACHINE BENDER [address] [place] [address] documented as of this encounter Procedures Procedure Name Priority Date/Time Associated Diagnosis Comments SARS-COV-2 BY MOLECULAR Routine 03/28/2020 9:16 AM FINANCIAL SALES ASSOCIATE documented in this encounter Results * SARS-COV-2 BY MOLECULAR (03/28/2020 9:16 AM FINANCIAL SALES ASSOCIATE) SARSCOV2 NOT DETECTED (Referen ce Range for this test is Not Detected ) [facility] THERMOFISHER FAST DX 03/29/2020 5:21 AM FINANCIAL SALES ASSOCIATE [facility] Comment:This test was perfor med by a PCR method. Other NASOPHARYNGEAL STRUCTURE / Unknown No Phlebotomy Charged / Unknown 03/28/2020 9:16 AM FINANCIAL SALES ASSOCIATE 03/28/2020 12:02 PM FINANCIAL SALES ASSOCIATE Narrative [facility] - 03/29/2020 5:21 AM FINANCIAL SALES ASSOCIATE Authorized Fact Sheets about this test for providers and patients are available at: https://www.fda.gov/medical-devices/qwvidjhdi-gpbucvoqeb-hetanhf-devices/emergen -us e-authorizations us Wendy Porras COMIC ILLUSTRATOR, COMPRESSOR MECHANIC MICROBIOLOGY - GENE RAL ORDERABLES Final Result [facility] [address] [place] [address], documented in this encounter Visit Diagnoses Not on filedocumented in this encounter Additional Health Concerns Infection Onset Date Last Indicated Resolved Time COVID - 19 03/21/2020 04/11/2020 04/14/2020 9:09 AM FINANCIAL SALES ASSOCIATE COVID - 19 02/09/2024 02/09/2024 02/09/2024 8:24 PM FINANCIAL SALES ASSOCIATE Assessment Noted Time PHQ-9 Depression Total Score: 0 06/25/19 18 12:00 PM CDT documented as of this encounter Care Teams Field Foreman Relationship Specialty Start Date End Date Fernando Rucker MD [address] [address] PCP - General Family Medicine 05/11/15 Sylvester Graves MD [address] [place] [address] Consulting Physician Neurology 06/17/23 documented as of this encounter
--- OUTSIDE RECORDS SUMMARY | 2024-04-16 12:01 | XMS_ITS | Clinical Summary ---
Author Organization [facility] Address [address] [place] [address] Care Team Providers Care Marketing Copywriter Name Role Phone Fernando Rucker MD Primary Care Provider [phone] Source Comments [facility],non-owned Affiliates and Associated Physician Practices is amultiple site organization consisting of ambulatory clinics and hospital sitesin [place], [place], [place] and [place]. This disclosure is being madepursuant to the Care Everywhere program and may not contain all information available regarding this patient. Last updated 17.[facility] Allergies Active Allergy Reactions Criticality Noted Date [...] Active vitamin D, ergocalciferol, (Drisdol) 1.25 MG (41780 UT) capsule Take 1 (one) capsule by mouth 08/07/2023 Active famotidine (Pepcid) 20 MG tablet Take 2 (two) tablets by mouth once daily as needed Active Bevespi Aerosphere 9-4.8 MCG/ACT inhaler Inhale 2 (two) puffs by mouth 2 times daily 05/11/2023 Active HYDROcodone-acetami nophen ([place]) 7.5-325 MG tablet Take 1 (one) tablet [...] Description 05/31/2024 1:30 PM CDT Office Visit [facility] - Cardiology [address] [facility] [address] [place] [address] Perez Yung MD [address] [facility] [address] [place] [address] Health Maintenance Due Date Last Done Comments COLOGUARD (AGES 45-75) - COLON CA SCREENING 1954 COLON MONITORING 1954 COLONOSCOPY - COLON CA SCREENING 1954 CT COLONOGRAPHY - COLON CA SCREENING 1954 Colorectal Cancer Screening 1954 FIT - COLON CA SCREENING 1954 FLEX SIG - COLON CA SCREENING 1954 HEPATITIS C SCREENING 03/10/1972 PNEUMOCOCCAL VACCINE 50+ (1 of 1 - PCV) 2004 ZOSTER VACCINE (1 of 2) 2004 SCREENING FOR DIABETES 09/08/2023 COVID-19 VACCINE (1 - season) 2023 INFLUENZA VACCINE (#1) 2023 DEPRESSION SCREENING 03/16/2024 MEDICARE AWV ? CALENDAR YEAR 2024 MAMMOGRAM 03/19/2024 03/19/2022, 06/2022, 01/15/2021, Additional history exists Respiratory Syncytial Virus (RSV) Vaccine Pt: or over 60 yrs (1 - 1-dose 75+ series) 2029 DTAP/TDAP/TD VACCINES (2 - Td or Tdap) 08/23/2033 08/24/2023 BONE DENSITY TESTING Completed 10/16/2015 HEPATITIS B VACCINE Aged Out No longe r eligible based on patient's age to complete this topic HIB VACCINE Aged Out No longer eligi ble based on patient's age to complete this topic HPV VACCINE Aged Out No longer eligi ble based on patient's age to complete this topic MENINGOCOCCAL (Group B) VACCINE Aged Out No longer eligible based on patient's age to complete this topic MENINGOCOCCAL VACCINE Aged Out No ashok albino eligible based on patient's age to complete this topic Care Teams Marketing Copywriter Relationship Specialty Start Date End Date Fernando Rucker MD [address] [place] [address] PCP - General Family Medicine 12/04/23
--- OUTSIDE RECORDS SUMMARY | 2024-04-16 12:01 | XMS_ITS | Encounter Summary ---
Author Organization [facility] Address [address] [place] [address] Phone Care Team Providers Care Multimedia Producer Name Role Phone Fernando Rucker MD Primary Care Provider Sylvester Graves MD Unavailable [phone] Encounter Details Date Type Department Care Team (Late Contact Info) Description 03/21/2020 [facility] [address] [place] [phone] Wendy Porras, ELECTRIC POWER LINE REPAIRER, WOOD BARREL RECONDITIONER [address] [place] [address] Social History Tobacco Use Types [...] Description 12/20/2024 10:00 AM CDT [facility] [place] [phone] Angela Ferrara, ELECTRIC POWER LINE REPAIRER, ZINC PLATE GRAINER [address] [place] [address] documented as of this encounter Procedures Procedure Name Priority Date/Time Associated Diagnosis Comments SARS-COV-2 BY MOLECULAR Routine 03/21/2020 9:26 AM MASONRY INSTRUCTOR documented in this encounter Results * SARS-COV-2 BY MOLECULAR (03/21/2020 9:26 AM MASONRY INSTRUCTOR) SARSCOV2 NOT DETECTED (Referen ce Range for this test is Not Detected ) [facility] THERMOFISHER FAST DX 03/22/2020 3:09 AM MASONRY INSTRUCTOR [facility] Comment:This test was perfor med by a PCR method. Other NASOPHARYNGEAL STRUCTURE / Unknown No Phlebotomy Charged / Unknown 03/21/2020 9:26 AM MASONRY INSTRUCTOR 03/21/2020 10:53 AM MASONRY INSTRUCTOR Narrative [facility] - 03/22/2020 3:09 AM MASONRY INSTRUCTOR Authorized Fact Sheets about this test for providers and patients are available at: https://www.fda.gov/medical-devices/zrbncpylj-hfirxjumox-seqrvjq-devices/emergen -us e-authorizations us Wendy Porras ELECTRIC POWER LINE REPAIRER, WOOD BARREL RECONDITIONER MICROBIOLOGY - GENE RAL ORDERABLES Final Result [facility] [address] [place] [address], documented in this encounter Visit Diagnoses Not on filedocumented in this encounter Additional Health Concerns Infection Onset Date Last Indicated Resolved Time COVID - 19 03/21/2020 04/11/2020 04/14/2020 9:09 AM MASONRY INSTRUCTOR COVID - 19 02/09/2024 02/09/2024 02/09/2024 8:24 PM MASONRY INSTRUCTOR Assessment Noted Time PHQ-9 Depression Total Score: 0 06/25/19 18 12:00 PM CDT documented as of this encounter Care Teams Multimedia Producer Relationship Specialty Start Date End Date Fernando Rucker MD [address] [address] PCP - General Family Medicine 05/11/15 Sylvester Graves MD [address] [place] [address] Consulting Physician Neurology 06/17/23 documented as of this encounter
--- OUTSIDE RECORDS SUMMARY | 2024-04-16 12:01 | XMS_ITS | Encounter Summary ---
Author Organization [facility] Address [address] [place] [address] Phone Care Team Providers Care Privacy Director Name Role Phone Fernando Rucker MD Primary Care Provider Sylvester Graves MD Unavailable [phone] Encounter Details Date Type Department Care Team (Late Contact Info) Description 04/11/2020 [facility] [address] [place] [phone] Wendy Porras, SUPERVISOR FINAL, NEWS CAMERA OPERATOR [address] [place] [address] Social History Tobacco Use Types [...] Description 12/20/2024 10:00 AM CDT [facility] [place] [phone] Angela Ferrara, SUPERVISOR FINAL, TRAY DRIER OPERATOR [address] [place] [address] documented as of this encounter Procedures Procedure Name Priority Date/Time Associated Diagnosis Comments SARS-COV-2 BY MOLECULAR Routine 04/11/2020 9:34 AM FUEL CELL ENGINEER documented in this encounter Results * SARS-COV-2 BY MOLECULAR (04/11/2020 9:34 AM FUEL CELL ENGINEER) SARSCOV2 NOT DETECTED (Referen ce Range for this test is Not Detected ) [facility] THERMOF[facility]ER FAST DX 04/12/2020 2:14 PM FUEL CELL ENGINEER [facility] Comment:This test was perfor med by a PCR method. Other NASOPHARYNGEAL STRUCTURE / Unknown Non-Phlebotomy Collection / Unknown 04/11/2020 9:34 AM FUEL CELL ENGINEER 04/11/2020 11:08 AM FUEL CELL ENGINEER Narrative [facility] - 04/12/2020 2:14 PM FUEL CELL ENGINEER Authorized Fact Sheets about this test for providers and patients are available at: https://www.fda.gov/medical-devices/chspigbwd-wkqdhmjbli-cyhtpzw-devices/emergen -us e-authorizations us Wendy Porras SUPERVISOR FINAL, NEWS CAMERA OPERATOR MICROBIOLOGY - GENE RAL ORDERABLES Final Result [facility] [address] [place] [address], documented in this encounter Visit Diagnoses Not on filedocumented in this encounter Additional Health Concerns Infection Onset Date Last Indicated Resolved Time COVID - 19 03/21/2020 04/11/2020 04/14/2020 9:09 AM FUEL CELL ENGINEER COVID - 19 02/09/2024 02/09/2024 02/09/2024 8:24 PM FUEL CELL ENGINEER Assessment Noted Time PHQ-9 Depression Total Score: 0 06/25/19 18 12:00 PM CDT documented as of this encounter Care Teams Privacy Director Relationship Specialty Start Date End Date Fernando Rucker MD [address] [address] PCP - General Family Medicine 05/11/15 Sylvester Graves MD [address] [place] [address] Consulting Physician Neurology 06/17/23 documented as of this encounter
--- OUTSIDE RECORDS SUMMARY | 2024-04-16 12:02 | XMS_ITS | CONTINUITY OF CARE DOCUMENT ---
Author Name soilaailynbronson Address Unknown Organization [facility] Address [address] [place] [address] Phone [phone] Care Team Providers Care Heel Attacher Name Role Phone Jensen SCOTT, Kevan Unavailable DESEAN SCOTT, EVERETTE Unavailable INSURANCE PROVIDERS Payer name Policy type / Coverage type Dawn red green party ID [employer] Commercial insurance co [facility] [id number]
--- OUTSIDE RECORDS SUMMARY | 2024-04-16 12:02 | XMS_ITS | Patient Health Summary ---
Author Organization [facility] Address [address] [facility] [place] [address] Care Team Providers Care Manager Gift Name Role Phone Fernando Rucker MD Primary Care Provider [phone] Note from [facility],non-owned Affiliates and Associated Physician Practices is amultiple site organization consisting of ambulatory clinics and hospital sitesin [place], [place], [place] and [place]. This disclosure is being madepursuant to the Care Everywhere program and may not contain all information available regarding this patient. Last updated 17.[facility] Allergies * Metoclopramide(Unknown) * Nalbuphine(Itching) * Prochlorperazine(Itching,Palpitations) * Promethazine(Itching) * Sumatriptan(Rash) -Medium Criticality Medications * Be aware that medications may not be up to date on this document. Alwaysverify current medications with the patient. * albuterol (Proventil;Ventolin) (2.5 MG/3ML) 0.083% nebulizer solution Inhale 2.5 (two and one-half) mg by mouth every 4 hours as needed * albuterol HFA (Proventil; Ventolin; Proair) 108 (90 Base) MCG/ACT inhaler (Started 05/12/2023) Inhale 2 (two) puffs by mouth every 4 hours as needed * amitriptyline (Elavil) 10 MG tablet(Started 05/11/2023) Take 2 (two) tablets by mouth at bedtime * apixaban (Eliquis) 5 MG tablet Take 1 (one) tablet by mouth 2 times daily * atorvastatin (Lipitor) 10 MG tablet(Started 06/17/2023) Take 1 (one) tablet by mouth once daily * cyeuovhwni-nfcjepwmcsraw-edgijjmp (Fioricet) 50-325-40 MG tablet(Started 07/17/2023) Take 1 (one) tablet by mouth every 4 hours as needed FOR MIGRAINE * cyanocobalamin (Vitamin B-12) injection(Started 08/14/2023) ADMINISTER 1 ML UNDER THE SKIN MONTHLY * vitamin D, ergocalciferol, (Drisdol) 1.25 MG (23325 UT) capsule(Started 08/07/2023) Take 1 (one) capsule by mouth * famotidine (Pepcid) 20 MG tablet Take 2 (two) tablets by mouth once daily as needed * Bevespi Aerosphere 9-4.8 MCG/ACT inhaler(Started 05/11/2023) Inhale 2 (two) puffs by mouth 2 times daily * HYDROcodone-acetaminophen ([place]) 7.5-325 MG tablet Take 1 (one) tablet by mouth every 6 hours as needed * ibuprofen (Motrin) 200 MG tablet Take 1 (one) tablet by mouth * lisinopril (Prinivil; Zestril) 30 MG tablet Take 1 (one) tablet by mouth once daily * Loperamide (Imodium) 2 MG tablet Take 1 (one) tablet by mouth * BD Integra Syringe 25G X 1 3 ML MISC(Started 01/28/2023) USE TO INJECT B12 ONCE MONTHLY * predniSONE (Deltasone) 5 MG tablet Take 1 (one) tablet by mouth once daily * pantoprazole EC (Protonix) 40 MG tablet(Started 09/03/2023) Take 1 (one) tablet by mouth every morning * ondansetron (Zofran) 8 MG tablet(Started 01/31/2023) Take 1 (one) tablet by mouth every 8 hours as needed * metoprolol succinate XL 24hr (Toprol XL) 50 MG tablet(Started 04/08/2023) Take 1 (one) tablet by mouth once daily * hydroCHLOROthiazide (Hydrodiuril) 25 MG tablet(Started 09/08/2023) Take 1 (one) tablet by mouth once daily 4 refills by 09/07/2024 Immunizations * TDAP (7yrs+)(Given 08/24/2023) Social History Tobacco Use Types Packs/Day Years [...] Mass Index 27.25 12/08/2023 1:23 PM CDT Procedures * EKG 12-LEAD(Performed 12/08/2023) Performed for Paroxysmal atrial fibrillation (HCC) * EKG 12-LEAD(Performed 09/08/2023) Performed for Chest pain, unspecified type Results * EKG 12-LEAD (12/08/2023 2:44 PM CDT) Only the most recent of2 resultswithin the time period is included. Ventricular Rate 68 BPM [facility] Atrial Rate 68 BPM [facility] P-R Interval 132 ms [facility] QRS Duration ms 82 ms [facility] Q-T Interval ms 400 ms [facility] QTC Calculation (Bezet) 425 ms [facility] Calculated P [place] 61 degrees [facility] Calculated R [place] 64 degrees [facility] Calculated T [place] 69 degrees [facility] Interpretation EKG NORMAL SINUS RHYTHM NORMAL ECG WHEN COMPARED WITH ECG OF 08-SEP-2023 13:05, T WAVE INVERSION NO LONGER EVIDENT IN ANTERIOR LEADS Confirmed by MD KENDRA, FLACA ([id number]) on 12/15/2023 4:28:49 PM [facility] 12/08/2023 2:44 PM CDT 12/15/2023 4:28 PM CDT Flaca Greenfield MD ECG ORDERABLES BRENDACARLOS CRAB ORCHARD Care Teams Manager Gift Relationship Specialty Start Date End Date Fernando Rucker MD [address] [facility] [address] [address] PCP - General Family Medicine 12/04/23
[2024-04-16 12:32] VITALS: BP 118/67; PULSE 100; RESP 16; TEMP 36.4; O2SAT 99
--- NOTE | 2024-04-16 13:25 | ED_ITS ---
HPI - Wound/Laceration General Chief Complaint: Wound/Laceration Stated Complaint: Wound to Right Leg Time Seen by Provider: 04/16/24 13:25 Source: patient, RN notes reviewed and old records reviewed Mode of arrival: ambulatory Limitations: no limitations History of Present Illness HPI narrative: 69-year-old female who presents to [facility] with complaints of skin tear wounds to the right lower leg since yesterday. Patient reports she is on blood thinner and she is not sure what she hit her lower right leg on but it has continued to ooze small amount of blood despite keeping a dressing to site. Patient reports that she has also been on higher dose of steroids for her RA flare, She reports that she has an appointment with her office service coordinator on Thursday. Onset (ago): day(s) (yesterday) Location: other (right lower leg) Extremity Location: Right: lower leg (posterior aspect) Place: home Patient tetanus UTD: Yes Treatments prior to arrival: other (cleansed and dressing) Related Data Home Medications ?Medication ?Instructions ?Recorded ?Confirmed ?Last Taken ?Type prednisone 5 mg tablet 5 mg PO DAILY 09/03/23 04/16/24 10/05/23 History metoprolol succinate 50 mg 50 mg PO DAILY 09/09/23 04/16/24 10/05/23 History tablet,extended release 24 hr hydrocodone 7.5 mg-acetaminophen 1 tablet PO Q6H PRN Pain 10/02/23 04/16/24 10/05/23 History 325 mg tablet albuterol sulfate 90 mcg/actuation 2 puff inhalation Q4H PRN 01/12/24 04/16/24 Unknown History aerosol inhaler Shortness Of Breath Or Wheezing apixaban 5 mg tablet (Eliquis) 5 mg PO BID 01/12/24 04/16/24 Unknown History folic acid 1 mg tablet 1 mg PO DAILY 01/12/24 04/16/24 Unknown History glycopyrrolate 9 mcg-formoterol 2 puff inhalation BID 01/12/24 04/16/24 Unknown History 4.8 mcg HFA aerosol inhaler (Bevespi Aerosphere) xxgrlcunkr-yldvvnzomiunc-jocipsve 1 tablet PO Q6H PRN headache 02/04/24 04/16/24 Unknown History 50 mg-325 mg-40 mg tablet furosemide 40 mg tablet 40 mg PO QAM 02/25/24 04/16/24 Unknown History atorvastatin 10 mg tablet mg 04/16/24 Unknown History bupropion HCl 150 mg 24 hr tablet, mg PO 04/16/24 Unknown History extended release cholecalciferol (vitamin D3) 1,250 04/16/24 Unknown History mcg (50,000 unit) capsule methylprednisolone 4 mg tablets in mg 04/16/24 Unknown History a dose pack Allergies Allergy/AdvReac Type Severity Reaction Status Date / Time metoclopramide Allergy Intermediate Shakiness Verified 04/16/24 12:31 nalbuphine Allergy Intermediate Rash Verified 04/16/24 12:31 prochlorperazine Allergy Intermediate Chest Verified 04/16/24 12:31 tightness promethazine Allergy Intermediate Rash Verified 04/16/24 12:31 sumatriptan Allergy Intermediate chest Verified 04/16/24 12:31 tightness meclizine AdvReac Intermediate lethargic Verified 04/16/24 12:31 Review of Systems Review of Systems: CONSTITUTIONAL: Denies fever, chills, or sweats. CARDIOVASCULAR: Denies chest pain, palpitations, or edema. RESPIRATORY: Denies cough or dyspnea. GASTROINTESTINAL: Denies abdominal pain, nausea, vomiting SKIN: Reports redness and swelling with skin tears to the posterior aspect of her right lower leg with some oozing of blood continuing to site, denies pain beyond proportion, some bruising of tissue noted. MUSCULOSKELETAL: Denies acute myalgia. NEUROLOGIC: Denies headache, numbness, reports that she has intermittent dizziness All systems reviewed & are unremarkable except as noted in HPI and below PMFSH Past Medical History Medical History Hypokalemia BMI 29.0-29.9,adult Nausea and vomiting Colon cancer screening normal colonoscopy 10/06/2023 with recheck in 10 years. Depression Renal insufficiency (09/18/23) BUN 43, creatinine 1.97, GFR 27 In the ER on 09/18/2023. possible dehydration. BUN 31, creatinine 0.92, GFR greater than 60 on 11/13/2023. Frequent falls At high risk for falls Iron deficiency anemia, unspecified hemoglobin 8.4 on 08/29/2023. Hemoglobin 8.7 with iron 23 with 7% saturation and ferritin 25 with vitamin B12 greater than 2000 and folic acid 8.6 on 09/03/2023. Hemoglobin 10.6 on 09/18/2023. Iron 71, 19% saturation, ferritin 12, hemoglobin 10.1 on 11/13/2023. Renal stone (~05/2023) 2 mm stone mid left kidney on CT on 05/29/2023. GERD (gastroesophageal reflux disease) EGD 10/06/2023 with normal esophagus, mild gastritis. CVA (cerebral vascular accident) (05/19/23) Left-sided weakness and slurred speech with vertigo 05/19/2023. CTA of head and neck 05/19/2023 with chronic multiple small cortical infarcts right parietal and posterior frontal areas. MRI without contrast 05/20/2023 with chronic microvascular ischemic type infarcts. CT of the brain 02/20/2024 w ith encephalomalacia right parietal area with hematoma. Paroxysmal atrial fibrillation (~05/2023) Mixed hyperlipidemia total cholesterol 160, triglycerides 76, HDL 58, LDL 87 with ratio 2.8 on 05/20/2023. Cholesterol 153, HDL 82, triglycerides 101, LDL 53 with ratio 1.9 on 11/13/2023. Cholesterol 159, triglycerides 89, HDL 57, LDL 85 on 02/20/2024. Numbness in both hands Numbness in feet Alteration in speech COPD (chronic obstructive pulmonary disease) (~2022) PFT on 02/09/2023 with moderate obstructive defect without improvement with bronchodilator. Diastolic dysfunction without heart failure (~02/09/23) grade 2 diastolic dysfunction with ejection fraction 65-70%, mild pulmonary hypertension, mild mitral valve regurgitation, trace tricuspid valve regurgitation on echo on 02/09/2023. Tremor (~2022) left upper extremity Vertigo COVID Skin tear of left upper extremity Benign paroxysmal positional vertigo due to bilateral vestibular disorder (~10/24/22) Acute pain of right foot (10/27/22) Possible stress fracture . X-ray of the right foot on 10/30/2022 revealed mild arthritis with a 2 mm linear foreign body at the base of the 3rd toe. Abnormal fasting glucose (09/24/22) glucose elevated at 107 on 09/24/2022. fasting glucose 91 with hemoglobin A1c 5.5 on 05/19/2023. Glucose 82, hemoglobin A1c 6.2, microalbumin ratio of 2 with GFR over 60 on 11/13/2023. At low risk for fall Abrasion hip/leg (~08/2022) significant abrasion wound to the anterior aspect left lower leg BMI 28.0-28.9,adult Persistent dyspnea after COVID-19 (03/24/22) with abnormal CT of the chest 02/02/2022.Repeat high-resolution CT of the chest on 04/17/2022 revealed resolution of previously described infectious changes. Normal CT with old granulomatous changes noted. BMI 27.0-27.9,adult COVID-19 (01/22/22) BMI 26.0-26.9,adult BMI 25.0-25.9,adult Overweight (BMI 25.0-29.9) (~01/2021) Hypertension BMI 24.0-24.9, adult Abscessed tooth Exposure to COVID-19 virus Abnormal serum iron level Total iron elevated at 217 with 58% saturation and ferritin normal at 32 on 11/25/2021 with hemoglobin 14.3. iron 149 with 44% saturation and ferritin 28 on 09/24/2022. Anemia Hemoglobin normal at 14.3 with vitamin B12 770 and folic acid 11.3 with iron 217 on 11/25/2021. Hemoglobin 13.3, iron 149, vitamin B12 612, folic acid 12.1 on 09/24/2022. Hemoglobin 11.7 on 05/21/2023. hemoglobin 12.8 on 05/29/2023. hemoglobin 10.6 on 07/06/2023. hemoglobin 8.4 on 08/29/2023. Hemoglobin 10.1 on 11/13/2023. Hemoglobin 9.7 on 02/20/2024. Acute bronchitis UTI (urinary tract infection) Rheumatoid arthritis Cough Abnormal mammogram normal mammogram on 01/15/2021 with recheck in 1 year. mammogram normal 03/19/2022 with recheck in 1 year for Carpal tunnel syndrome Inflammatory arthritis (~2014) Bilateral hand pain Vitamin D insufficiency Level slightly low at 29 on 09/24/2022. Seasonal allergic rhinitis Insomnia Chronic anxiety Tinnitus Arthritis Acute non-recurrent maxillary sinusitis Surgical History Surgical History H/O: hysterectomy Family History Family History Mother Patient's mother is , Onset Age: 86 Father Family history of malignant neoplasm of brain, Onset Age: 58 Social History Social History Smoking packs per day: 0 Smoking cigarettes per day: 0.0 Years smoked: 0 Smoking pack-years: 0.00 Smoking status: Never smoker Second hand tobacco smoke exposure: No Alcohol intake: never Substance use: never Substance use type: does not use Do You Feel Safe in your Home?: Yes Lack of Transportation: No Lack of Food: Never True Current Housing: I Have Housing Concerned About Future Housing: No Difficulty Paying Gas/Electric Bills: No Difficulty Paying for Meds: No Currently Unemployed: No Education: High School Diploma/GED Difficulty w/ Childcare or Family Care: No Living arrangements: with family Spiritual care concerns: No Comments At time of signature, agree with nursing past medical, surgical, social and family history. There is no relevant family history pertinent to the presenting complaint Exam Narrative: GENERAL:Chronic ill -appearing, well-nourished, and in no acute distress. HEAD: Normocephalic, atraumatic. EYES: PERRLA and EOMI. ENT: Nares clear, no rhinorrhea or epistaxis. Mucous membranes moist.TM's normal throat pink with no sweling NECK: Supple. no lymphadenopathy CHEST: Clear to auscultation. No respiratory distress.SAO2 99% on room air HEART: Regular rate and rhythm. No murmur heard. Normal peripheral pulses. ABDOMEN: Soft, nontender, nondistended, normal active bowel sounds. EXTREMITIES: Normal range of motion. No edema. SKIN: Warm, dry. Erythema, tenderness,with some bruising to posterior right lower leg with skin tears X2 with top layer of skin gone off of wounds. Most proximal wound measures 3cm X1 cm, other skin tear area measures 3cm X3.5cm with small amount of bleeding oozing from wound beds. Wound cleansed and irrigated with triple antibiotic ointment,Telfa dressing and Kerlix wrap to site by nursing staff. NEURO: No focal deficits. Alert and oriented x3. Course Course Emergency Course: Patient is aware of diagnosis, understands and agrees to treatment plan. Anticipatory guidance given. Patient agrees to follow-up as directed and is aware of reasons to seek care at the emergency department. Portions of this record may have been created with voice recognition software Level of Care: Express Care Visit Vital Signs Vital signs: Vital Signs Temperature 36.4 C 04/16/24 12:32 Pulse Rate 100 04/16/24 12:32 Respiratory Rate 16 04/16/24 12:32 Blood Pressure 118/67 04/16/24 12:32 Pulse Oximetry 99 04/16/24 12:32 Oxygen Delivery Room Air 04/16/24 12:32 Temperature 36.4 C 04/16/24 12:32 Pulse Rate 100 04/16/24 12:32 Respiratory Rate 16 04/16/24 12:32 Blood Pressure 118/67 04/16/24 12:32 Pulse Oximetry 99 04/16/24 12:32 Oxygen Delivery Room Air 04/16/24 12:32 Reviewed MDM - Wound/Laceration Differential Diagnosis Differential diagnosis: Likely abrasion, avulsion of skin and other (skin tears to right lower leg) Medical Records Attestation: I reviewed the patient's medical records. Critical Care Time Critical Care Time Critical Care Time: No Discharge Plan Discharge Clinical Impression: Tear of skin of multiple sites of right lower extremity Patient Disposition: Home, Self-Care Condition: Stable Instructions: Antibiotic Form, Skin Tear (ED) Additional Instructions: Keep the area clean and dry No continuous water contact like dishes or swimming You may bathe and wash you hair caution with hair products or lotions Antibiotic ointment to the area one time daily using mupiricin ointment and Telfa dressing over wound and secure with gauze wrap no tape to skin watch for any infection--redness, swelling, drainage recheck with PCP if further concerns or problems Tylenol for any fever pain Follow-up with PCP in 7-10 days for wound check or sooner if concerns If your symptoms persist, change or worsen significantly before you can contact your personal physician then please, without delay, go to the emergency department for further evaluation. Follow-up with PCP in 7-10 days or sooner if needed Patient Language: Upper Sorbian Prescriptions: New cephalexin 500 mg capsule 500 mg PO Q12H Qty: 20 0RF mupirocin [Centany] 2 % ointment 1 applic topical DAILY Qty: 22 0RF No Action atorvastatin 10 mg tablet methylprednisolone 4 mg tablets,dose pack bupropion HCl 150 mg tablet extended release 24 hr PO cholecalciferol (vitamin D3) 1,250 mcg (50,000 unit) capsule albuterol sulfate 90 mcg/actuation HFA aerosol inhaler 2 puff INHALATION Q4H PRN (Reason: Shortness Of Breath Or Wheezing) Eliquis 5 mg tablet 5 mg PO BID folic acid 1 mg tablet 1 mg PO DAILY Bevespi Aerosphere 9-4.8 mcg HFA aerosol inhaler 2 puff INHALATION BID buspirone 10 mg tablet 10 mg PO BID Qty: 60 11RF methotrexate sodium 2.5 mg tablet 10 mg PO WEEKLY Qty: 28 0RF Rx Instructions: prescribed by office service coordinator along with folic acid esmuodrxfl-osuerlhoansbm-bvyh 50-325-40 mg tablet 1 tablet PO Q6H PRN (Reason: headache) Patient Comments: prescribed by neurologist pantoprazole 40 mg tablet,delayed release (DR/EC) 40 mg PO QAM Qty: 30 11RF prednisone 5 mg tablet 5 mg PO DAILY Patient Comments: prescribed by Rheumatology potassium chloride [Klor-Con M20] 20 mEq tablet,ER particles/crystals 20 meq PO DAILY PRN (Reason: take with lasix) Qty: 30 5RF furosemide 40 mg tablet 40 mg PO QAM hydrocodone-acetaminophen 7.5-325 mg tablet 1 tablet PO Q6H PRN (Reason: Pain) (DME) BD Integra Syringe 3 mL 25 gauge x 1 syringe See Rx Instructions .Route Qty: 12 0RF Rx Instructions: use to inject B12 once monthly albuterol sulfate 2.5 mg /3 mL (0.083 %) solution for nebulization 2.5 mg inhalation Q4-6H PRN (Reason: shortness of breath or wheezing) Qty: 180 6RF amitriptyline 10 mg tablet 20 mg PO . q.h.s. Qty: 60 11RF metoprolol succinate 50 mg tablet extended release 24 hr 50 mg PO DAILY cholecalciferol (vitamin D3) 1,250 mcg (50,000 unit) tablet 50,000 unit PO WEEKLY Qty: 14 3RF cyanocobalamin (vitamin B-12) 1,000 mcg/mL solution 1,000 mcg SUB-Q MONTHLY Qty: 3 4RF ipratropium-albuterol 0.5 mg-3 mg(2.5 mg base)/3 mL solution for nebulization 3 ml inhalation QID PRN (Reason: shortness of breath) Qty: 360 3RF Follow-up/Referrals: Fernando Rucker MD [Primary Care Provider] - Time of Disposition: 14:06 Quality [place] Coma Scale Eyes: Open Verbal: Oriented and Alert Motor: Follows Commands Josephine Coma Total Score: 15
== END 2024-04-16 14:06 | disposition home or self-care (01) ==
PROVIDERS: Emergency Provider Registered Nurse; PCP Family Medicine
DX: S81.811A Laceration without foreign body, right lower leg, initial encounter (principal); X58.XXXA Exposure to other specified factors, initial encounter; I48.0 Paroxysmal atrial fibrillation; E78.2 Mixed hyperlipidemia; J44.9 Chronic obstructive pulmonary disease, unspecified; I10 Essential (primary) hypertension; M06.9 Rheumatoid arthritis, unspecified; M19.90 Unspecified osteoarthritis, unspecified site; I69.354 Hemiplegia and hemiparesis following cerebral infarction affecting left non-dominant side; I69.328 Other speech and language deficits following cerebral infarction; Z86.16 Personal history of COVID-19; Z79.01 Long term (current) use of anticoagulants
CPT/HCPCS: 99212; G0463

== ENCOUNTER 2024-06-17 09:43 | Outpatient (CLI) | payer MEDICARE, SELFPAY ==
--- NOTE | ~2024-06-17 | CT_ITS ---
CT Scan of the Chest without Contrast: Clinical Indication: Asthma Technique: Contiguous sections were acquired throughout the chest without intravenous contrast. Dose reduction technique was used on this scan by utilizing automated exposure control and iterative recon struction technique. The dose-length product (DLP) was 147.50 mGy-cm. COMPARISON: 04/17/2022 Findings: There is no evidence of any significant mediastinal, hilar or axillary lymphadenopathy. The mediastin al soft tissues appear normal. There is no evidence of pleural or pericardial effusion. Calcified left upper lobe granuloma present. Minimal peripheral groundglass opacity right lung base i s present, which could reflect hypoventilatory/atelectatic change. Images through the upper abdomen reveal moderate fat-containing hiatal hernia. Impression: Probable minimal right basilar hypoventilatory/atelectatic change. Correlate for subtle/mild pneumoni a. Reviewed, dictated and finalized at [facility]. Impression: Probable minimal right basilar hypoventilatory/atelectatic change. Correlate fo r subtle/mild pneumonia.
--- OUTSIDE RECORDS SUMMARY | 2024-06-17 09:57 | XMS_ITS | Encounter Summary ---
Author Organization [facility] Address [address] [place] [address] Phone Care Team Providers Care Satellite Technician Name Role Phone Fernando Rucker MD Primary Care Provider Sylvester Graves MD Unavailable [phone] Encounter Details Date Type Department Care Team (Late Contact Info) Description 03/07/2020 Lab Requisition [facility] [address] [place] [id number] Wendy Porras, WASHATERIA ATTENDANT, ELECTRONICS SYSTEM MECHANIC [address] [place] [address] Social History Tobacco Use Types [...] Department Care Team (Late Contact Info) Description 07/01/2024 4:45 PM CDT Appointment [facility] [address] [place] [id number] Fernando Rucker MD [address] [address] Discharge Disposition: Discharged to home or Selfcare 12/19/2024 10:30 AM CDT Office Visit [facility] - Neurology - [place] [address] [place] [address] Angela Ferrara, WASHATERIA ATTENDANT, LABORER HEADING [address] [place] [address] documented as of this encounter Procedures Procedure Name Priority Date/Time Associated Diagnosis Comments SARS-COV-2 BY MOLECULAR Routine 03/07/2020 9:17 AM REFORESTATION WORKER documented in this encounter Results * SARS-COV-2 BY MOLECULAR (03/07/2020 9:17 AM REFORESTATION WORKER) SARSCOV2 NOT DETECTED (Referen ce Range for this test is Not Detected ) [facility] THERMOFISHER FAST DX 03/08/2020 11:19 AM REFORESTATION WORKER [facility] Comment:This test was perfor med by a PCR method. Other NASOPHARYNGEAL STRUCTURE / Unknown Non-Phlebotomy Collection / Unknown 03/07/2020 9:17 AM REFORESTATION WORKER 03/07/2020 11:26 AM REFORESTATION WORKER Narrative [facility] - 03/08/2020 11:19 AM REFORESTATION WORKER Authorized Fact Sheets about this test for providers and patients are available at: https://www.fda.gov/medical-devices/sisfuynnh-jcruovpsqx-zycyftl-devices/emergen -us e-authorizations us Wendy Porras WASHATERIA ATTENDANT, ELECTRONICS SYSTEM MECHANIC MICROBIOLOGY - GENE RAL ORDERABLES Final Result [facility] [address] [place] [address], documented in this encounter Visit Diagnoses Not on filedocumented in this encounter Additional Health Concerns Infection Onset Date Last Indicated Resolved Time COVID - 19 03/07/2020 03/07/2020 03/12/2020 1:33 PM REFORESTATION WORKER COVID - 19 03/21/2020 04/11/2020 04/14/2020 9:09 AM REFORESTATION WORKER COVID - 19 02/09/2024 02/09/2024 02/09/2024 8:24 PM REFORESTATION WORKER Assessment Noted Time PHQ-9 Depression Total Score: 0 06/25/19 18 12:00 PM CDT documented as of this encounter Care Teams Satellite Technician Relationship Specialty Start Date End Date Fernando Rucker MD [address] [address] PCP - General Family Medicine 05/11/15 Sylvester Graves MD [address] [place] [address] Consulting Physician Neurology 06/17/23 documented as of this encounter
--- OUTSIDE RECORDS SUMMARY | 2024-06-17 09:57 | XMS_ITS | Encounter Summary ---
Author Organization [facility] Address [address] [place] [address] Phone Care Team Providers Care Deputy Probation Officer Name Role Phone Fernando Rucker MD Primary Care Provider Sylvester Graves MD Unavailable [phone] Encounter Details Date Type Department Care Team (Late Contact Info) Description 03/21/2020 [facility] [address] [place] [phone] Wendy Porras, APPLIED RESEARCH DIRECTOR, BREAD DISTRIBUTOR [address] [place] [address] Social History Tobacco Use Types [...] Info) Description 07/01/2024 4:45 PM CDT [facility]ointment [facility] [address] [place] [address] Fernando Rucker MD [address] [address] Discharge Disposition: Discharged to home or Selfcare 12/19/2024 10:30 AM CDT Office Visit [facility] - [facility] [address] [place] [address] Agnela Ferrara, APPLIED RESEARCH DIRECTOR, SOCIAL MEDIA INTERN [address] [place] [address] documented as of this encounter Procedures Procedure Name Priority Date/Time Associated Diagnosis Comments SARS-COV-2 BY MOLECULAR Routine 03/21/2020 9:26 AM SALES ASSISTANT INSTITUTIONAL SALES documented in this encounter Results * SARS-COV-2 BY MOLECULAR (03/21/2020 9:26 AM SALES ASSISTANT INSTITUTIONAL SALES) SARSCOV2 NOT DETECTED (Referen ce Range for this test is Not Detected ) [facility] THERMOFISHER FAST DX 03/22/2020 3:09 AM SALES ASSISTANT INSTITUTIONAL SALES [facility] Comment:This test was perfor med by a PCR method. Other NASOPHARYNGEAL STRUCTURE / Unknown No Phlebotomy Charged / Unknown 03/21/2020 9:26 AM SALES ASSISTANT INSTITUTIONAL SALES 03/21/2020 10:53 AM SALES ASSISTANT INSTITUTIONAL SALES Narrative [facility] - 03/22/2020 3:09 AM SALES ASSISTANT INSTITUTIONAL SALES Authorized Fact Sheets about this test for providers and patients are available at: https://www.fda.gov/medical-devices/exhixezgm-xjftcsbfhi-iaqwokl-devices/emergen cy-us e-authorizations us Wendy Porras APPLIED RESEARCH DIRECTOR, BREAD DISTRIBUTOR MICROBIOLOGY - GENE RAL ORDERABLES Final Result [facility] [address] [place] [address], [place] documented in this encounter Visit Diagnoses Not on filedocumented in this encounter Additional Health Concerns Infection Onset Date Last Indicated Resolved Time COVID - 19 03/21/2020 04/11/2020 04/14/2020 9:09 AM SALES ASSISTANT INSTITUTIONAL SALES COVID - 19 02/09/2024 02/09/2024 02/09/2024 8:24 PM SALES ASSISTANT INSTITUTIONAL SALES Assessment Noted Time PHQ-9 Depression Total Score: 0 06/25/19 18 12:00 PM CDT documented as of this encounter Care Teams Deputy Probation Officer Relationship Specialty Start Date End Date Fernando Rucker MD [address] [address] PCP - General Family Medicine 05/11/15 Sylvester Graves MD [address] [place] [id number] Consulting Physician Neurology 06/17/23 documented as of this encounter
--- OUTSIDE RECORDS SUMMARY | 2024-06-17 09:57 | XMS_ITS | Clinical Summary ---
Author Organization [facility] [employer] Address [address] [place] [address] Care Team Providers Care Chainstitch Elastic Attacher Name Role Phone Fernando Rucker MD Primary Care Provider [phone] Source Comments [facility] [employer],non-owned Affiliates and Associated Physician Practices is amultiple site organization consisting of ambulatory clinics and hospital sitesin [place], [place], [place] and [place]. This disclosure is being madepursuant to the Care Everywhere program and may not contain all information available regarding this patient. Last updated 17.[facility] [employer] Allergies Active Allergy Reactions Criticality Noted Date [...] Active vitamin D, ergocalciferol, (Drisdol) 1.25 MG (03777 UT) capsule Take 1 (one) capsule by mouth 08/07/2023 Active famotidine (Pepcid) 20 MG tablet Take 2 (two) tablets by mouth once daily as needed Active Bevespi Aerosphere 9-4.8 MCG/ACT inhaler Inhale 2 (two) puffs by mouth 2 times daily 05/11/2023 Active HYDROcodone-acetami nophen ([place]) 7.5-325 MG tablet Take 1 (one) tablet [...] 12/08/2023 1:23 PM CDT Plan of Treatment Health Maintenance Due Date [...] 2004 SCREENING FOR DIABETES 09/08/2023 COVID-19 VACCINE ( - season) 2023 INFLUENZA VACCINE (#1) 2023 DEPRESSION SCREENING 03/16/2024 MEDICARE AWV CALENDAR YEAR 2024 MAMMOGRAM 03/19/2024 03/19/2022, 06/2022, [...] complete this topic MENINGOCOCCAL (Group B) VACCINE SHARED DECISION-MAKING Aged Out No longer eligible based on patient's age to complete this topic MENINGOCOCCAL GROUPS A/C/Y/W VACCINE Aged Out No longer eligible based on patient's age to complete this topic Care Teams Chainstitch Elastic Attacher Relationship Specialty Start Date End Date Fernando Rucker MD [address] [place] [address] PCP - General Family Medicine 12/04/23
--- OUTSIDE RECORDS SUMMARY | 2024-06-17 09:58 | XMS_ITS | Encounter Summary ---
Author Organization [facility] Address [address] [place] [address] Phone Care Team Providers Care Complaints Coordinator Name Role Phone Fernando Rucker MD Primary Care Provider Sylvester Graves MD Unavailable [phone] Encounter Details Date Type Department Care Team (Late Contact Info) Description 03/28/2020 Lab Requisition [facility] Laboratory [facility] [address] [place] [id number] Wendy Porras, EXTENSION SERVICE SPECIALIST, E D TECH [address] [place] [address] Social History Tobacco Use Types [...] Info) Description 07/01/2024 4:45 PM CDT Appointment [facility] Mammography [address] [place] [address] Fernando Rucker MD [address] [address] Discharge Disposition: Discharged to home or Selfcare 12/19/2024 10:30 AM CDT Office Visit [facility] - Neurology [facility] [address] [place] [address] Angela Ferrara, EXTENSION SERVICE SPECIALIST, ADMINISTRATIVE PERSONAL ASSISTANT [address] [place] [address] documented as of this encounter Procedures Procedure Name Priority Date/Time Associated Diagnosis Comments SARS-COV-2 BY MOLECULAR Routine 03/28/2020 9:16 AM WAREHOUSE RECEIVER documented in this encounter Results * SARS-COV-2 BY MOLECULAR (03/28/2020 9:16 AM WAREHOUSE RECEIVER) SARSCOV2 NOT DETECTED (Referen ce Range for this test is Not Detected ) [facility] THERMOFISHER FAST DX 03/29/2020 5:21 AM WAREHOUSE RECEIVER [facility] Comment:This test was perfor med by a PCR method. Other NASOPHARYNGEAL STRUCTURE / Unknown No Phlebotomy Charged / Unknown 03/28/2020 9:16 AM WAREHOUSE RECEIVER 03/28/2020 12:02 PM WAREHOUSE RECEIVER Narrative [facility] - 03/29/2020 5:21 AM WAREHOUSE RECEIVER Authorized Fact Sheets about this test for providers and patients are available at: https://www.fda.gov/medical-devices/iihfhphos-edakwsoghb-potzonc-devices/emergen cy-us e-authorizations us Wendy Porras EXTENSION SERVICE SPECIALIST, E D TECH MICROBIOLOGY - GENE RAL ORDERABLES Final Result [facility] [address] [place] [address], [place] documented in this encounter Visit Diagnoses Not on filedocumented in this encounter Additional Health Concerns Infection Onset Date Last Indicated Resolved Time COVID - 19 03/21/2020 04/11/2020 04/14/2020 9:09 AM WAREHOUSE RECEIVER COVID - 19 02/09/2024 02/09/2024 02/09/2024 8:24 PM WAREHOUSE RECEIVER Assessment Noted Time PHQ-9 Depression Total Score: 0 06/25/19 18 12:00 PM CDT documented as of this encounter Care Teams Complaints Coordinator Relationship Specialty Start Date End Date Fernando Rucker MD [address] [address] PCP - General Family Medicine 05/11/15 Sylvester Graves MD [address] [place] [phone] Consulting Physician Neurology 06/17/23 documented as of this encounter
--- OUTSIDE RECORDS SUMMARY | 2024-06-17 09:58 | XMS_ITS | CONTINUITY OF CARE DOCUMENT ---
Author Name [email or web address] Address Unknown Organization [facility] Address [address] [facility] [facility] [address] [place] [address] Phone [phone] Care Team Providers Care Adventure Guide Name Role Phone Jensen SCOTT, Kevan Unavailable DESEAN SCOTT, EVERETTE Unavailable INSURANCE PROVIDERS Payer name Policy type / Coverage type [employer] party ID [employer] Commercial insurance co [facility] [id number]
--- OUTSIDE RECORDS SUMMARY | 2024-06-17 09:58 | XMS_ITS | Encounter Summary ---
Author Organization [facility] Address [address] [place] [address] Phone Care Team Providers Care Electrical Maintenance Supervisor Name Role Phone Fernando Rucker MD Primary Care Provider Sylvester Graves MD Unavailable [phone] Encounter Details Date Type Department Care Team (Late Contact Info) Description 04/11/2020 [facility] [address] [place] [phone] Wendy Porras, VOICE NETWORK ADMINISTRATOR, TRANSPLANT REGISTERED NURSE [address] [place] [address] Social History Tobacco Use Types [...] Info) Description 07/01/2024 4:45 PM CDT [facility] [address] [place] [address] Fernando Rucker MD [address] [address] Discharge Disposition: Discharged to home or Selfcare 12/19/2024 10:30 AM CDT Office Visit [facility] - Neurology [facility] [address] [place] [address] Angela Ferrara, VOICE NETWORK ADMINISTRATOR, WINDOWS ADMIN [address] [place] [address] documented as of this encounter Procedures Procedure Name Priority Date/Time Associated Diagnosis Comments SARS-COV-2 BY MOLECULAR Routine 04/11/2020 9:34 AM SHELLFISH FARMING SUPERVISOR documented in this encounter Results * SARS-COV-2 BY MOLECULAR (04/11/2020 9:34 AM SHELLFISH FARMING SUPERVISOR) SARSCOV2 NOT DETECTED (Referen ce Range for this test is Not Detected ) [facility] THERMOFISHER FAST DX 04/12/2020 2:14 PM SHELLFISH FARMING SUPERVISOR [facility] Comment:This test was perfor med by a PCR method. Other NASOPHARYNGEAL STRUCTURE / Unknown Non-Phlebotomy Collection / Unknown 04/11/2020 9:34 AM SHELLFISH FARMING SUPERVISOR 04/11/2020 11:08 AM SHELLFISH FARMING SUPERVISOR Narrative [facility] - 04/12/2020 2:14 PM SHELLFISH FARMING SUPERVISOR Authorized Fact Sheets about this test for providers and patients are available at: https://www.fda.gov/medical-devices/ldzgamjvf-pixligdtpt-qqvmmht-devices/emergen cy-us e-authorizations us Wendy Porras VOICE NETWORK ADMINISTRATOR, [place] MICROBIOLOGY - GENE RAL ORDERABLES Final Result [facility] [address] [place] [address], [place] documented in this encounter Visit Diagnoses Not on filedocumented in this encounter Additional Health Concerns Infection Onset Date Last Indicated Resolved Time COVID - 19 03/21/2020 04/11/2020 04/14/2020 9:09 AM SHELLFISH FARMING SUPERVISOR COVID - 19 02/09/2024 02/09/2024 02/09/2024 8:24 PM SHELLFISH FARMING SUPERVISOR Assessment Noted Time PHQ-9 Depression Total Score: 0 06/25/19 18 12:00 PM CDT documented as of this encounter Care Teams Electrical Maintenance Supervisor Relationship Specialty Start Date End Date Fernando Rucker MD [address] [address] PCP - General Family Medicine 05/11/15 Sylvester Graves MD [address] [place] [phone] Consulting Physician Neurology 06/17/23 documented as of this encounter
--- OUTSIDE RECORDS SUMMARY | 2024-06-17 09:58 | XMS_ITS ---
Author Organization [facility] yu Address [address] [facility] [address] [place] [address] Care Team Providers Care Rehabilitation Services Coordinator Name Role Phone Fernando Rucker MD Primary Care Provider Judie Win, Opal Jing [phone] REASON FOR VISIT flare Medications Medication SIG (Take, Route, Frequency, Duration) Notes Start Date End Date Status methylPREDNISolone 4 MG taper Orally for 6 days 05/31/2024 Active Encounters Encounter Location Date Provider Diagnosis [facility] [address] [facility] [address] [place] [address] 05/25/2024 Opal Quirino Plan Of Treatment Medication Medication Name Sig Start Date Stop Date Notes methylPREDNISolone 4 MG taper Orally for 6 days 05/25/2024 05/31/2024 Next Appt Details Provider Name:Opal Quirino, 07/21 11:45:00 AM, [address], [place], [address], Progress Notes * Monse MORRISDOB:[birth year] (69 yo F)Acc No.[id number]:05/25/2024 Patient: Libby EMELYSIDDHARTH Monse Souza :1955 A ge:69 Y S ex:Female Address:[address] [place] [address], [address] * Refills Start methylPREDNISolone Tablet Therapy Pack, 4 MG, Orally, 21, taper, 6 days, Refills=0 * true * Date: Generated for Printi ng/Fahilariog/eTransmitting on: 0 06/17/2024 09:57 AM TITUST
--- OUTSIDE RECORDS SUMMARY | 2024-06-17 09:58 | XMS_ITS | Clinical Summary ---
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 Automobile Assembly Supervisor Name Role Phone Fernando Rucker MD Primary Care Provider [phone] Allergies Active Allergy Reactions Criticality Noted Date Comments Metoclopramide Nalbuphine Prochlorperazine Promethazine Sumatriptan Medications cyanocobalamin (Vitamin B-12) 1,000 mcg/mL injection Last of month 017 Active metoprolol XL (TOPROL-XL) 50 mg extended release tablet Take 1 tablet (50 mg total) by mouth daily 30 tablet 024 Active amitriptyline (ELAVIL) 10 mg tablet Take 1 tablet (10 mg total) by mouth nightly Active atorvastatin (LIPITOR) 10 mg tablet Take 1 tablet (10 mg total) by mouth daily 024 Active busPIRone (BUSPAR) 10 mg tablet Take 1 tablet (10 mg total) by mouth 2 (two) times a day Active cholecalciferol (VITAMIN D-3) 50,000 unit capsule Take 1 capsule (50,000 Units total) by mouth once a week 024 Active ferrous sulfate 325 mg (65 mg of elemental iron) tablet Take 1 tablet (65 mg of elemental iron total) by mouth daily with breakfast Active Bevespi Aerosphere 9-4.8 mcg inhaler Inhale 2 puffs 2 (two) times a day 024 Active methotrexate 2.5 mg tablet Take 1 tablet (2.5 mg total) by mouth 3 tablets a week Active buPROPion XL (WELLBUTRIN XL) 150 mg 24 hr tablet Take 1 tablet (150 mg total) by mouth psychiatric security nurse before breakfast Active folic acid (FOLVITE) 1 mg tablet Take 1 tablet (1 mg total) by mouth daily Active polyethylene glycol (MIRALAX) 17 gram/dose bulk powder Take 17 g by mouth once Active vitamins-lipotrop ics (Lipo-Flavonoid Plus) 200-100 mg tablet Take 1 [...] (four) times a day as needed Active HYDROcodone-aceta minophen (NORCO) 7.5-325 mg per tablet Take 1 tablet by mouth every 6 (six) hours as needed Active furosemide (LASIX) 40 mg tablet Take 1 tablet (40 mg total) by mouth daily 30 tablet 2 Active potassium chloride ER (KLOR-CON) 20 mEq CR tablet Take 1 tablet (20 mEq total) by mouth daily 30 tablet Active ondansetron ODT (ZOFRAN-ODT) 4 mg disintegrating tablet Dissolve 1 tablet oral every 4 hours as needed for nausea or vomiting. Collaborating physician Ariel Oreilly MD 20 tablet Active empagliflozin (JARDIANCE) 10 mg tabletIndications :Heart Failure Take 1 tablet (10 mg total) by mouth daily 30 tablet 11 Active butalbital-acetam inophen-caffeine (ESGIC) 50-325-40 mg per tablet Take 1 tablet by mouth every 6 (six) hours as needed for headaches 20 tablet Active apixaban (ELIQUIS) 5 mg tablet Take 1 tablet (5 mg total) by mouth 2 (two) times a day 60 tablet 3 025 Active butalbital-acetam inophen-caffeine (ESGIC) 50-325-40 mg per tablet Take 1 tablet by mouth every 6 (six) hours as needed for headaches 2024 Discontinued apixaban (ELIQUIS) 5 mg tablet Take 1 tablet (5 mg total) by mouth 2 (two) times a day 024 2024 Discontinued(R eorder) Active Problems Problem Noted Date Diagnosed Date Hypokalemia due to loss of potassium 02/19/2024 COPD exacerbation 02/10/2024 Diastolic dysfunction 04/10/2023 Chronic obstructive pulmonary disease 04/10/2023 Pulmonary hypertension 04/10/2023 Essential hypertension 04/10/2023 Vertigo 04/10/2023 B12 injections - at home 05/25/2014 Overview (06/19/2016): B12 injections - at home Encounters Date Type Department Care Team Description 06/14/2024 1:38 PM CDT - 06/14/2024 3:25 PM CDT Emergency [facility] Emergency Department [address] [place] [address] Juan Carlos Burgess MD Hypokalemia (Primary Dx); Blister of left lower leg, initial encounter Discharge Disposition: Discharge to home or self care 05/22/2024 12:43 PM CDT - 05/22/2024 6:23 PM CDT Emergency [facility] Emergency Department [address] [place] [address] Yong Mcrae MD Migraine without status migrainosus, not intractable, unspecified migraine type (Primary Dx) Discharge Disposition: Discharge to home or self care 05/17/2024 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 Emergency [facility] Emergency Department [address] [place] [address] Encounter for post-traumatic wound check (Primary Dx) Discharge Disposition: Discharge to home or self care 03/29/2024 Telephone [employer] [facility] at [address] [place] [phone] Mary Pichardo MA from Last 3 Months Surgical History Surgery Date Site/Laterality Comments CARPAL TUNNEL RELEASE Left Carpal tunnel release BREAST BIOPSY breast biopsy HYSTERECTOMY hysterectomy Medical History Medical History Date Comments Anemia Anemia Hx Other Medical Headache, migra ine Hypertension Hypertension Atrial fibrillation (HCC) CVA (cerebral vascular accident) (HCC) COPD [...] Not Answered Alcohol Use Standard Drinks/Week Comments Not Currently 0 (1 standard drink = 0.6 oz pur e alcohol) [facility] Utilities Answer Date Recorded In the past 12 months has e electric, gas, oil, or water company threatened to shut off services in your [...] often do you attend chur ch or christian services? Never 02/19/2024 Do you belong to any clubs o r organizations such as jain groups, unions, fraternal or athletic groups, or [...] any time in the past 12 m [facility], were you homeless or living in a care home (including now)? No 02/19/2024 Personal Safety Answer Date Recorded Have you ever been in or are you currently in a harmful physical or emotional relationship or is someone making you feel afraid or unsafe? 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 Gender Identity Not on file Sexual Orientation Not on file Obstetrics History Last Filed Vital Signs Vital Sign Reading Time Taken Comments Blood Pressure 127/59 06/14/2024 3:20 PM CDT Pulse 96 06/14/2024 3:20 PM CDT Temperature 36.7 C (98.1 F) 06/14/2024 12:23 PM CDT Respiratory Rate 16 06/14/2024 2:45 PM CDT Oxygen Saturation 96% 06/14/2024 3:20 PM CDT Inhaled Oxygen Concentration - - Weight 59 kg (130 lb) 06/14/2024 12:23 PM CDT Height 157.5 cm (5' 2 ) 06/14/2024 12:22 PM CDT Body Mass Index 23.78 06/14/2024 12:22 PM CDT Plan of Treatment Health Maintenance Due Date Last Done Comments Colon Cancer Screening-Colonoscopy 1954 Depression Screening 1954 Hepatitis C Screening 1954 Hepatitis B Screening 1972 Pneumococcal vaccine 65+ (1 of 2 - PCV) 1973 Zoster Vaccine (1 of 2) 1973 Osteoporosis Screening-Bone Density Scan 10/15/2017 10/16/2015, 10/16/2015 Well Visit 65+ 2019 Breast Cancer Screening-Mammogram 03/19/2023 03/19/2022, 03/19/2022, 01/15/2021, Additional history exists Influenza Vaccine (Season Ended) 2024 12/15/19 19, 01/05/2018 Fall Risk Assessment 02/20/2025 02/21/2024 DTaP/Tdap/Td Vaccine (2 - Td or Tdap) 08/23/2033 08/24/2023 Procedures Procedure Name Priority Date/Time Associated Diagnosis Comments MAGNESIUM Add-On 06/14/2024 12:46 PM CDT EGFR STAT 06/14/2024 12:46 PM CDT DIFFERENTIAL AUTO STAT 06/14/2024 12: 46 PM CDT COMPREHENSIVE METABOLIC PANEL STAT 06/14/2024 12:46 PM CDT CBC WITH AUTO DIFFERENTIAL STAT 06/14/2024 12:46 PM CDT BLOOD CULTURE STAT 06/14/2024 12:46 PM CDT BLOOD CULTURE STAT 06/14/2024 12:46 PM CDT CTA HEAD NECK W WO CONTRAST ED 05/22/2024 4:23 PM CDT URINALYSIS AND REFLEX TO MICROSCOPIC AND CULTURE STAT 05/22/2024 4:04 PM CDT XR CHEST 1 VIEW ED 05/22/2024 1:31 PM CDT ECG 12-LEAD STAT 05/22/2024 1:[address] HEAD WO CONTRAST ED 05/22/2024 1 :14 PM CDT EGFR STAT 05/22/2024 12:50 PM CDT DIFFERENTIAL AUTO STAT 05/22/2024 12: 50 PM CDT CBC WITH AUTO DIFFERENTIAL STAT 05/22/2024 12:50 PM CDT COMPREHENSIVE METABOLIC PANEL STAT 05/22/2024 12:50 PM CDT POCT GLUCOSE DEVICE Routine 05/22/2024 1 2:43 PM CDT from Last 3 Months Results * eGFR (06/14/2024 12:46 PM CDT) eGFR 66 >=60 mL/min/1. 73 m2 Comment: Interpretive Data Reference Interval Normal >/= 90 mL/min/1.73m2 Mildly decreased* 60 - 89 mL/min/1.73m2 Mildly to moderately decreased 45 - 59 mL/min/1.73m2 Moderately to severely decreased 30 - 44 mL/min/1.73m2 Severely decreased 15 - 29 mL/min/1.73m2 Kidney Failure < 15 mL/min/1.73m2 *Relative to young adult level Estimated glomerular [...] interpretive data was last reviewed 2021. Blood 06/14/2024 12:4 6 PM CDT 06/14/2024 12:50 PM CDT us Juan Carlos Burgess MD LAB BLOOD ORDERABLES Final Res ult [facility] ([place]) 1 [facility] [place] [address] * (ABNORMAL) Differential, auto (06/14/2024 12:46 PM CDT) Neutrophil abs 6.69(H) 1.50 - 6.50 K/cumm Imm gran abs 0.07 0.00 - 0.10 K/cumm [facility] ([place]) Lymphocyte abs 2.87 0.80 - 3.30 K/cumm [facility] ([place]) Monocyte abs 1.10(H) 0.20 - 0.80 K/cumm [facility] ([place]) Eosinophil abs 0.25 0.00 - 0.50 K/cumm [facility] ([place]) Basophil abs 0.05 0.00 - 0.10 K/cumm [facility] ([place]) Neutrophil pct 60.6 % [facility] ([place]) Comment: Interpretive [...] was last revised on 2017. Lymphocyte pct 26.0 % [facility] ([place]) Comment: Interpretive Data Percent cell count reference ranges are not reported, since discordance with absolute values may lead to misinterpretation of CBC data. Current Interpretive Data was last revised on 2017. Monocyte pct 10.0 % [facility] ([place]) Comment: Interpretive Data Percent cell count reference ranges are not reported, since discordance with absolute values may lead to misinterpretation of CBC data. Current Interpretive Data was last revised on 2017. Eosinophil pct 2.3 % [facility] ([place]) Comment: Interpretive Data Percent cell count reference ranges are not reported, since discordance with absolute values may lead to misinterpretation of CBC data. Current Interpretive Data was last revised on 2017. Basophil pct 0.5 % [facility] ([place]) Comment: Interpretive Data Percent cell count reference ranges are not reported, since discordance with absolute values may lead to misinterpretation of CBC data. Current Interpretive Data was last revised on 2017. Blood 06/14/2024 12:4 6 PM CDT 06/14/2024 12:50 PM CDT us Juan Carlos Burgess MD LAB BLOOD ORDERABLES Final Res ult [facility] ([place]) 1 [facility] Department of Laboratories [place], [place] [id number] * (ABNORMAL) CBC with auto differential (06/14/2024 12:46 PM CDT) WBC 11.03(H) 3.80 - 9.90 K/cumm Hgb 10.1(L) 11.9 - 15.5 g/dL [facility] ([place]) Hct 34.0(L) 35.6 - 45.5 % [facility] ([place]) Plt 383 150 - 400 K/cumm [facility] ([place]) MPV 10.1 9.1 - 12.3 fL [facility] ([place]) RBC 3.80(L) 3.90 - 5.20 M/cumm [facility] ([place]) MCV 89.5 81.3 - 96.4 fL [facility] ([place]) MCH 26.6(L) 27.1 - 33.3 pg [facility] ([place]) MCHC 29.7(L) 32.3 - 35.7 g/dL [facility] ([place]) RDW CV 16.3(H) 11.1 - 14.9 % [facility] ([place]) RDW SD 53.9(H) 35.7 - 48.1 fL [facility] ([place]) NRBC abs 0.00 0.00 - 0.01 K/cumm [facility] ([place]) Blood 06/14/2024 12:4 6 PM CDT 06/14/2024 12:50 PM CDT Juan Carlos Burgess MD LAB BLOOD ORDERABLES Final Res ult [facility] ([place]) 1 [facility] [place] [address] * Magnesium (06/14/2024 12:46 PM CDT) Pathologist [facility] Magnesium 1.7 1.4 - 2.5 mg/dL Blood 06/14/2024 12:4 6 PM CDT 06/14/2024 2:42 PM CDT Joleen LOPEZ LAB BLOOD ORDERABLES Alice l Result Performing Organization Address City/[facility]/ZIP Co de Phone Number [facility] ([place]) [address] [facility] [place] [address] * (ABNORMAL) Comprehensive metabolic panel (06/14/2024 12:46 PM CDT) Sodium 145 135 - 145 mmol/L Potassium, pl 2.9(C) 3.3 - 4.9 mmol/L [facility] ([place]) Comment:Critical Result call ed by [email or web address] at 2024-06-14 13:13:54. Result Read Back by STEWART [facility]-ER Chloride 103 97 - 110 mmol/L [facility] ([place]) CO2 25 22 - 32 mmol/L [facility] ([place]) Anion gap 17(H) 2 - 15 mmol/L [facility] ([place]) BUN 22 6 - 25 mg/dL [facility] ([place]) Creatinine 0.93 0.60 - 1.10 mg/dL [facility] ([place]) Glucose 110 70 - 199 mg/dL [facility] ([place]) Comment: Interpretive Data Fasting glucose >/= 126 mg/dl is diagnostic for diabetes. Fasting is defined as no caloric intake [...] interpretive data was last revised 2022. Calcium 9.2 8.5 - 10.3 mg/dL [facility] ([place]) Bilirubin, total 0.3 0.1 - 1.2 mg/dL [facility] ([place]) Protein, pl 6.9 6.5 - 8.5 g/dL [facility] ([place]) Albumin 4.0 3.5 - 5.0 g/dL [facility] ([place]) Alk phos 83 40 - 130 Units/L [facility]) ALT 15 7 - 45 Units/L [facility]) AST 16 10 - 45 Units/L [facility] ([place]) Blood 06/14/2024 12:4 6 PM CDT 06/14/2024 12:50 PM CDT us Juan Carlos Burgess MD LAB BLOOD ORDERABLES Final Res ult [facility] ([place]) 1 [facility] Department [place] [address] * CTA Head Neck W WO Contrast (05/22/2024 4:23 PM CDT) Anatomical Region Laterality Modality Head and Neck N/A Computed Tomogra phy 05/22/2024 5:03 PM CDT Narrative 05/22/2024 5:22 PM CDT EXAM DESCRIPTION: CTA HEAD NECK W WO CONTRAST REASON FOR STUDY: Severe Headache, r/o aneurysm Dizziness, headache, and sob Hx of stroke TECHNIQUE: Axial dynamic scanning technique with dynamic contrast enhancement through the intracranial and extracranial carotid and vertebral arteries. Multiplanar reconstruction. All stenosis measurements are based on NASCET criteria. 3D MIP images rendered on scanning unit and reviewed at time of interpretation. Automated exposure control was used as a dose optimization technique for this examination. CONTRAST TYPE/DOSE: 75mL of IOVERSOL 350 MG IODINE/ML INTRAVENOUS SYRINGE injected via intravenous COMPARISON: CT head same day FINDINGS: INTRACRANIAL VESSELS [place]: The anterior, middle, posterior cerebral arteries are all patent. No evidence of aneurysm. The right middle cerebral artery trifurcation demonstrates somewhat tapered narrowing of the proximal branches. Lesser but similar changes noted within the inferior division on the left. Consider atherosclerotic disease most likely unless there are acute symptoms of stroke. POSTERIOR CIRCULATION: The distal vertebral arteries are patent as is the basilar artery. No aneurysm. BRAIN: No gross enhancing lesions as visualized. CAROTID CTA RIGHT CAROTIDS: No internal, external or common carotid stenosis. LEFT CAROTIDS: No internal, external or common carotid stenosis. LEFT VERTEBRAL: Patent. No significant stenosis. No dissection. The proximal left subclavian artery demonstrates 50% stenosis due to calcified plaque. RIGHT VERTEBRAL: Patent. No significant stenosis. No dissection. AORTIC ARCH: Normal three-vessel origin. Bilateral subclavian arteries are patent. No dissection. NECK SOFT TISSUE: No mass, adenopathy. No thyroid nodule greater than 1 cm. INCLUDED LUNGS: No acute abnormality. No worrisome nodules. OTHER: No other significant finding. IMPRESSION: BRAIN: No unusual enhancing lesions. INTRACRANIAL CTA: Narrowing of the proximal branches of the middle cerebral arteries bilaterally greatest on the right likely related to atherosclerotic changes. Please correlate clinically for any more acute symptoms of stroke. CAROTID CTA: Normal CTA of the extra-cranial carotid and vertebral arteries. THIS IS AN ELECTRONICALLY VERIFIED FINAL REPORT 05/22/2024 5:22 PM - Electronically signed by Bernabe Garcia M.D. RB: FRITZ Report ID: [id number] Reading Location: [id number] Procedure Note Bernabe Garcia MD - 05/22/2024 EXAM DESCRIPTION: CTA HEAD NECK W WO CONTRAST REASON FOR STUDY: Severe Headache, r/o aneurysm Dizziness, headache, and sob Hx of stroke TECHNIQUE: Axial dynamic scanning technique with dynamic contrastenhancement through the intracranial and extracranial carotid and vertebral arteries. Multiplanar reconstruction. All stenosis measurements are based on NASCET criteria. 3D MIP images rendered on scanning unit and reviewed at time of interpretation. Automated exposure control was used as a dose optimization technique forthis examination. CONTRAST TYPE/DOSE: 75mL of IOVERSOL 350 MG IODINE/ML INTRAVENOUSSYRINGE injected via intravenous COMPARISON: CT head same day FINDINGS: INTRACRANIAL VESSELS [place]: The anterior, middle, posterior cerebral arteries areall patent. No evidence of aneurysm. The right middle cerebral artery trifurcation demonstrates somewhattapered narrowing of the proximal branches. Lesser but similar changes notedwithin the inferior division on the left. Consider atherosclerotic disease most likely unless there are acute symptoms of stroke. POSTERIOR CIRCULATION: The distal vertebral arteries are patent as isthe basilar artery. No aneurysm. BRAIN: No gross enhancing lesions as visualized. CAROTID CTA RIGHT CAROTIDS: No internal, external or common carotid stenosis. LEFT CAROTIDS: No internal, external or common carotid stenosis. LEFT VERTEBRAL: Patent. No significant stenosis. No dissection. The proximal left subclavian artery demonstrates 50% stenosis due to calcified plaque. RIGHT VERTEBRAL: Patent. No significant stenosis. No dissection. AORTIC ARCH: Normal three-vessel origin. Bilateral subclavian arteriesare patent. No dissection. NECK SOFT TISSUE: No mass, adenopathy. No thyroid nodule greater than 1cm. INCLUDED LUNGS: No acute abnormality. No worrisome nodules. OTHER: No other significant finding. IMPRESSION: BRAIN: No unusual enhancing lesions. INTRACRANIAL CTA: Narrowing of the proximal branches of the middle cerebral arteriesbilaterally greatest on the right likely related to atherosclerotic changes. Please correlate clinically for any more acute symptoms of stroke. CAROTID CTA: Normal CTA of the extra-cranial carotid and vertebral arteries. THIS IS AN ELECTRONICALLY VERIFIED FINAL REPORT 05/22/2024 5:22 PM - Electronically signed by Bernabe Garcia M.D. RB: FRITZ Report ID: [id number] Reading Location: [id number] Yong Mcrae MD IMG CT PROCEDURES Final Resu lt * (ABNORMAL) Urinalysis reflex to microscopic and culture Urine (05/22/2024 4:04 PM CDT) Color, ur Yellow Yellow Clarity, ur Clear Clear [facility] ([place]) Specific gravity, ur 1.014 1.003 - 1.030 [facility] ([place]) pH, urine 5.5 [facility] ([place]) Comment: Interpretive Data U rine pH is affected by diet, medications, systemic acid-base disturbances, and renal tubular function. pH may affect urinary stone formation. For example, urine pH below 6.0 may help reduce the tendency for calcium phosphate stones and pH greater than 6.0 may reduce the tendency for uric acid stone formation. Source: [facility] Current Interpretive Data was last revised on 2017 Protein, ur ql Negative Negative [facility] ([place]) Glucose, ur ql 4+(A) Negative [facility] ([place]) Ketones, ur [...] and culture not met. [facility] ([place]) Urine 05/22/2024 4:04 PM CDT 05/22/2024 4:08 PM CDT Yong Mcrae MD LAB MICROBIOLOGY - GENERAL O RDERABLES Final Result [facility] ([place]) 1 [facility] [place] [address] * XR Chest 1 Vw Portable (05/22/2024 1:31 PM CDT) Anatomical Region Laterality Modality Body, Chest N/A Computed Radiogr aphy 05/22/2024 2:15 PM CDT Narrative 05/22/2024 2:18 PM CDT EXAM DESCRIPTION: XR CHEST 1 VIEW REASON FOR STUDY: general weakness Pt states she has dizziness, headache, shortness of breath. Pt states she has had a stroke before and has had similar symptoms. TECHNIQUE: Single frontal radiographic view(s) of the chest. COMPARISON: Chest radiograph dated 03/14/2024, 02/19/2024, 02/10/2024 and 11/08/2019. Chest CT dated 02/11/2024. FINDINGS: The patient is rotated. Lung volumes are small with bronchovascular crowding. Medial right lower chest opacity. Hazy density in the left lower chest. The cardiomediastinal silhouette is similar in size. Osseous structures without gross acute interval change. IMPRESSION: 1. Right lower chest opacity, atelectasis or pneumonic consolidation. 2. Left lower chest hazy density could be overlapping soft tissues or small layering pleural effusion. Attention on follow-up. THIS IS AN ELECTRONICALLY VERIFIED FINAL REPORT 05/22/2024 2:18 PM - Electronically signed by Emeka Chu D.O. AP: AP Report ID: [id number] Reading Location: [id number] Procedure Note Emeka Chu, DO - 05/22/2024 EXAM DESCRIPTION: XR CHEST 1 VIEW REASON FOR STUDY: general weakness Pt states she has dizziness, headache, shortness of breath. Pt states shehas had a stroke before and has had similar symptoms. TECHNIQUE: Single frontal radiographic view(s) of the chest. COMPARISON: Chest radiograph dated 03/14/2024, 02/19/2024, 02/10/2024 and 11/08/2019. Chest CT dated 02/11/2024. FINDINGS: The patient is rotated. Lung volumes are small with bronchovascularcrowding. Medial right lower chest opacity. Hazy density in the left lower chest.The cardiomediastinal silhouette is similar in size. Osseous structureswithout gross acute interval change. IMPRESSION: 1. Right lower chest opacity, atelectasis or pneumonic consolidation. 2. Left lower chest hazy density could be overlapping soft tissues orsmall layering pleural effusion. Attention on follow-up. THIS IS AN ELECTRONICALLY VERIFIED FINAL REPORT 05/22/2024 2:18 PM - Electronically signed by Emeka Chu D.O. AP: AP Report ID: [id number] Reading Location: [id number] Yong Mcrae MD IMG XR PROCEDURES Final Resu lt * ECG 12 lead (05/22/2024 1:14 PM CDT) 05/22/2024 1:14 PM CDT Narrative [facility] - 05/23/2024 9:26 AM CDT Vent Rate: 86 bpm RR Interval: 695 msec UT Interval: 120 msec QRS Duration: 88 msec QT Interval: 358 msec QTC Interval: 401 msec P-R-T [place]: 38 - 61 - 65 degrees IMPRESSION: SINUS RHYTHM NORMAL ECG NO CHANGE FROM PREVIOUS TRACING NOTED Electronically Signed By: Chapin Padron MD Yong Mcrae MD ECG ORDERABLES Final Result [facility] * CT Head WO Contrast (05/22/2024 1:14 PM CDT) Anatomical Region Laterality Modality Head and Neck N/A Computed Tomogra phy 05/22/2024 1:53 PM CDT Narrative 05/22/2024 2:03 PM CDT EXAM DESCRIPTION: CT HEAD WO CONTRAST REASON FOR STUDY: Headache, sudden, severe Dizziness, headache, and sob Hx of stroke TECHNIQUE: Axial images acquired through the brain without intravenous contrast. Images stored on PACS. Automated exposure control was used as a dose optimization technique for this examination. COMPARISON: Multiple previous CT head examinations with the most recent dated 03/14/2024. FINDINGS: No acute intracranial hemorrhage or midline shift. Mild asymmetric right cerebral volume loss as seen on previous examinations. There is no hydrocephalus. The basilar cisterns are maintained. Multifocal right parietal encephalomalacia as noted on the CT head dated 03/14/2024. Elsewhere in the brain the subcortical and periventricular white matter low attenuation in the bilateral cerebral hemispheres is nonspecific but compatible with chronic microvascular ischemic type change in a patient of this age. The bilateral globes are symmetric. Sphenoid sinus small air-fluid level. The mastoid air cells are predominantly clear. The soft tissue density in the bilateral external auditory canals is interpreted as cerumen. There are vascular calcifications. There is no depressed calvarial fracture. IMPRESSION: 1. No acute intracranial hemorrhage or midline shift. 2. Chronic infarctions, chronic microvascular ischemic type white-matter changes and additional findings as above. 3. Sphenoid sinus small air-fluid level can be seen with acute sinusitis in the proper clinical scenario. THIS IS AN ELECTRONICALLY VERIFIED FINAL REPORT 05/22/2024 2:03 PM - Electronically signed by Emeka Chu D.O. AP: AP Report ID: [id number] Reading Location: [place] [id number] Procedure Note Emeka Chu, DO - 05/22/2024 EXAM DESCRIPTION: CT HEAD WO CONTRAST REASON FOR STUDY: Headache, sudden, severe Dizziness, headache, and sob Hx of stroke TECHNIQUE: Axial images acquired through the brain without intravenous contrast. Images stored on PACS. Automated exposure control was used asa dose optimization technique for this examination. COMPARISON: Multiple previous CT head examinations with the most recentdated 03/14/2024. FINDINGS: No acute intracranial hemorrhage or midline shift. Mild asymmetric right cerebral volume loss as seen on previousexaminations. There is no hydrocephalus. The basilar cisterns are maintained. Multifocal right parietal encephalomalacia as noted on the CT head dated 03/14/2024. Elsewhere in the brain the subcortical and periventricularwhite matter low attenuation in the bilateral cerebral hemispheres isnonspecific but compatible with chronic microvascular ischemic type change in apatient of this age. The bilateral globes are symmetric. Sphenoid sinus small air-fluid level. The mastoid air cells are predominantly clear. The soft tissue density inthe bilateral external auditory canals is interpreted as cerumen. There are vascular calcifications. There is no depressed calvarial fracture. IMPRESSION: 1. No acute intracranial hemorrhage or midline shift. 2. Chronic infarctions, chronic microvascular ischemic type white-matter changes and additional findings as above. 3. Sphenoid sinus small air-fluid level can be seen with acute sinusitisin the proper clinical scenario. THIS IS AN ELECTRONICALLY VERIFIED FINAL REPORT 05/22/2024 2:03 PM - Electronically signed by Emeka Chu D.O. AP: AP Report ID: [id number] Reading Location: [place] [address] Yong Mcrae MD IMG CT PROCEDURES Final Resu lt * (ABNORMAL) eGFR (05/22/2024 12:50 PM CDT) eGFR 57(L) >=60 mL/min/1. 73 m2 Comment: Interpretive Data Reference Interval Normal >/= 90 mL/min/1.73m2 Mildly decreased* 60 - 89 mL/min/1.73m2 Mildly to moderately decreased 45 - 59 mL/min/1.73m2 Moderately to severely decreased 30 - 44 mL/min/1.73m2 Severely decreased 15 - 29 mL/min/1.73m2 Kidney Failure < 15 mL/min/1.73m2 *Relative to young adult level Estimated glomerular [...] interpretive data was last reviewed 2021. Blood 05/22/2024 12:5 0 PM CDT 05/22/2024 12:59 PM CDT Yong Mcrae MD LAB BLOOD ORDERABLES Final R esult REJI McclainGUANAKITO) 1 [facility] Department [place] [address] * (ABNORMAL) Differential, auto (05/22/2024 12:50 PM CDT) Neutrophil abs 7.5(H) 1.5 - 6.5 K/cumm Imm gran abs 0.0 0.0 - 0.1 K/cumm [facility] ([place]) Lymphocyte abs 1.7 0.8 - 3.3 K/cumm [facility] ([place]) Monocyte abs 1.0(H) 0.2 - 0.8 K/cumm [facility] ([place]) Eosinophil abs 0.2 0.0 - 0.5 K/cumm [facility] ([place]) Basophil abs 0.1 0.0 - 0.1 K/cumm [facility] ([place]) Neutrophil pct 72.0 % [facility] ([place]) Comment: Interpretive Data Percent cell count reference ranges are not reported, since discordance with absolute values may lead to misinterpretation of CBC data. Current Interpretive Data was last revised on 2017. Imm gran pct 0.4 % [facility] ([place]) Comment: Interpretive Data Percent cell count reference ranges are not reported, since discordance with absolute values may lead to misinterpretation of CBC data. Current Interpretive Data was last revised on 2017. Lymphocyte pct 16.5 % [facility] ([place]) Comment: Interpretive Data Percent cell count reference ranges are not reported, since discordance with absolute values may lead to misinterpretation of CBC data. Current Interpretive Data was last revised on 2017. Monocyte pct 9.2 % [facility] ([place]) Comment: Interpretive Data Percent cell count reference ranges are not reported, since discordance with absolute values may lead to misinterpretation of CBC data. Current Interpretive Data was last revised on 2017. Eosinophil pct 1.4 % [facility] ([place]) Comment: Interpretive Data Percent cell count reference ranges are not reported, since discordance with absolute values may lead to misinterpretation of CBC data. Current Interpretive Data was last revised on 2017. Basophil pct 0.5 % [facility] ([place]) Comment: Interpretive Data Percent cell count reference ranges are not reported, since discordance with absolute values may lead to misinterpretation of CBC data. Current Interpretive Data was last revised on 2017. Blood 05/22/2024 12:5 0 PM CDT 05/22/2024 12:59 PM CDT Yong Mcrae MD LAB BLOOD ORDERABLES Final R esult [facility] ([place]) 1 [facility] Department [place] [address] * (ABNORMAL) CBC with auto differential (05/22/2024 12:50 PM CDT) WBC 10.4(H) 3.8 - 9.9 K/cumm Hgb 11.0(L) 11.9 - 15.5 g/dL [facility] ([place]) Hct 35.7 35.6 - 45.5 % [facility] ([place]) Plt 441(H) 150 - 400 K/cumm [facility] ([place]) MPV 9.8 9.1 - 12.3 fL [facility] ([place]) RBC 4.01 3.90 - 5.20 M/cumm [facility] ([place]) MCV 89.0 81.3 - 96.4 fL [facility] ([place]) MCH 27.4 27.1 - 33.3 pg [facility] ([place]) MCHC 30.8(L) 32.3 - 35.7 g/dL [facility] ([place]) RDW CV 16.7(H) 11.1 - 14.9 % [facility] ([place]) RDW SD 54.5(H) 35.7 - 48.1 fL [facility] ([place]) NRBC abs 0.00 0.00 - 0.01 K/cumm [facility] ([place]) Blood 05/22/2024 12:5 0 PM CDT 05/22/2024 12:59 PM CDT Yong Mcrae MD LAB BLOOD ORDERABLES Final R esult [facility] ([place]) 1 [facility] Department [place] [address] * (ABNORMAL) Comprehensive metabolic panel (05/22/2024 12:50 PM CDT) Sodium 140 135 - 145 mmol/L Potassium, pl 3.3 3.3 - 4.9 mmol/L [facility]) Chloride 97 97 - 110 mmol/L [facility] ([place]) CO2 26 22 - 32 mmol/L [facility] ([place]) Anion gap 17(H) 2 - 15 mmol/L [facility] ([place]) BUN 17 6 - 25 mg/dL [facility] ([place]) Creatinine 1.05 0.60 - 1.10 mg/dL [facility] ([place]) Glucose 153 70 - 199 mg/dL [facility] ([place]) Comment: Interpretive Data Fasting glucose >/= 126 mg/dl is diagnostic for diabetes. Fasting is defined as no caloric intake [...] 10.3 mg/dL [facility] ([place]) Bilirubin, total 1.1 0.1 - 1.2 mg/dL [facility] ([place]) Protein, pl 7.8 6.5 - 8.5 g/dL [facility] ([place]) Albumin 4.5 3.5 - 5.0 g/dL [facility] ([place]) Alk phos 130 40 - 130 Units/L [facility] ([place]) ALT 17 7 - 45 Units/L [facility] ([place]) AST 23 10 - 45 Units/L [facility] ([place]) Blood 05/22/2024 12:5 0 PM CDT 05/22/2024 12:59 PM CDT us Yong Mcrae MD LAB BLOOD ORDERABLES Final R esult [facility] ([place]) [address] [facility] [place] [address] * POCT glucose (05/22/2024 12:43 PM CDT) Glucose, POC 139 70 - 199 mg/dL Blood 05/22/2024 12:4 3 PM CDT 05/22/2024 12:43 PM CDT us Notinfile Unknown LAB POCT ORDERABLES - DEVICE F inal Result RE[facility] CH[facility]BERS ([place]) 1 [facility] [email or web address] [address] from Last 3 Months Insurance [facility] MED[facility] Address: [facility] [address] [place] [address] [facility] Address: [facility] [address] [place] [address] Advance Directives For more information, please contact: [phone] * Full Code (Latest Code Status on File) Date Activated Date Inactivated Comments 02/19/2024 6:03 PM 02/21/2024 5:09 PM * Full Code Date Activated Date Inactivated Comments 02/11/2024 7:53 AM 02/13/2024 3:37 PM Care Teams Automobile Assembly Supervisor Relationship Specialty Start Date End Date Fernando Rucker MD [address] [address] PCP - General 05/25/14
--- OUTSIDE RECORDS SUMMARY | 2024-06-17 09:58 | XMS_ITS ---
Author Organization [facility] yu Address [address] [facility] [address] [place] [address] Care Team Providers Care Obgyn Specialist Name Role Phone Fernando Rucker MD Primary Care Provider Judie WinOpal Jing [phone] REASON FOR VISIT Refills Medications Medication SIG (Take, Route, Fr equency, Duration) Notes Start Date End Date Status predniSONE 5 MG 1 Orally daily for 30 days 08/09/2024 Active Encounters Encounter Location Date Provider Diagnosis [facility] [address] [facility] [address] [place] [address] 05/11/2024 Opal Win Inflammatory arthrit is M19.90 Assessments Encounter Date Diagnosis (ICD Code) Assessment Notes Treatment Notes Treatment Clinical Notes Section Notes 05/11/2024 Inflammatory arthritis (ICD-10 - M19.90) Plan Of Treatment Medication Medication Name Sig Start Date Stop Date Notes predniSONE 5 MG 1 Orally daily for 30 days 07/15 Next Appt Details Provider Name:Opal Quirino, 07/21 11:45:00 AM, [address], [place], [address], Progress Notes * Monse MORRISDOB:[birth year] (69 yo F)Acc No.[id number]:05/11/2024 Patient: Libby SHARANNEMonse :1955 A ge:69 Y S ex:Female Address:[address] [place] [address], [address] * Refills Refill predniSONE Tablet, 5 MG, Orally, 30, 1, daily, 30 days, Refills=2 * true * Date: Generated for Aby dowd/Claribel/Christos on: 0 06/17/2024 09:58 AM CDT
--- OUTSIDE RECORDS SUMMARY | 2024-06-17 09:58 | XMS_ITS | Referral Summary ---
Author Organization [facility] Address [address] [place] [address] Care Team Providers Care Router Operator Pin Name Role Phone Fernando Rucker MD Primary Care Provider [phone] Encounters Date Type Department Care Team Description 06/14/2024 1:38 PM CDT - 06/14/2024 3:25 PM CDT Emergency [facility] Emergency Department [address] [place] [address] Juan Carlos Burgess MD Hypokalemia (Primary Dx); Blister of left lower leg, initial encounter Discharge Disposition: Discharge to home or self care 05/22/2024 12:43 PM CDT - 05/22/2024 6:23 PM CDT Emergency [facility] Emergency Department [address] [place] [address] Yong Mcrae MD Migraine without status migrainosus, not intractable, unspecified migraine type (Primary Dx) Discharge Disposition: Discharge to home or self care 05/17/2024 10:15 AM CHIEF EXECUTIVE OR MANAGING DIRECTOR Office Visit [place] [facility] at [address] [place] [phone] Sammi Chavez NP Diastolic dysfunction (Primary Dx); Chronic obstructive pulmonary disease, unspecified COPD type (HCC); Atrial fibrillation, unspecified type (HCC); Essential hypertension 05/10/2024 Telephone [place] [facility] at [address] [address] Sam Roldan MA 04/20/2024 3:31 PM CHIEF EXECUTIVE OR MANAGING DIRECTOR - 04/20/2024 5:10 PM [facility] Emergency [facility] Emergency Department [address] [place] [address] Encounter for post-traumatic wound check (Primary Dx) Discharge Disposition: Discharge to home or self care 03/29/2024 Telephone [place] [facility] at [facility] [address] [facility] [address] [place] [address] Mary Pichardo MA from Last 3 Months Allergies Active Allergy [...] Units total) by mouth once a week Active ferrous sulfate 325 mg (65 mg of elemental iron) tablet Take 1 tablet (65 mg of elemental iron total) by mouth daily with breakfast Active Bevespi Aerosphere 9-4.8 mcg inhaler Inhale 2 puffs 2 (two) times a day Active methotrexate 2.5 mg tablet Take 1 tablet (2.5 mg total) by mouth 3 tablets a week Active buPROPion XL (WELLBUTRIN XL) 150 mg 24 hr tablet Take 1 tablet (150 mg total) by mouth wax pot tender before breakfast Active folic acid (FOLVITE) 1 mg tablet Take 1 tablet (1 mg total) by mouth daily 08/13/2 024 Active polyethylene glycol (MIRALAX) 17 gram/dose bulk powder Take 17 g by mouth once 016 Active vitamins-lipotrop ics (Lipo-Flavonoid Plus) 200-100 mg [...] total) by mouth daily 30 tablet 11 025 Active butalbital-acetam inophen-caffeine (ESGIC) 50-325-40 mg per tablet Take 1 tablet by mouth every 6 (six) hours as needed for headaches 20 tablet 025 Active apixaban (ELIQUIS) 5 mg tablet [...] drink = 0.6 oz pur e alcohol) [facility] Utilities Answer Date Recorded In the past 12 months has [employer], gas, oil, or water [employer] threatened to shut off services in your [...] often do you attend chur ch or jewish services? Never 02/19/2024 Do you belong to any clubs o r organizations such as mandaen groups, unions, fraternal or athletic groups, or [...] any time in the past 12 m [facility], were you homeless or living in a senior care (including now)? No 02/19/2024 Personal Safety Answer Date Recorded Have you ever been in or are you currently in a harmful physical or emotional relationship or is someone making you feel afraid or unsafe? Denies 06/14/2024 Comments No Sex and Gender Information Value Date Recorded Sex Assigned at Not on file Legal Sex Female 12:11 AM CHIEF EXECUTIVE OR MANAGING DIRECTOR Gender Identity Not on file Sexual Orientation [...] 06/14/2024 12:22 PM CDT Plan of Treatment Not on file Procedures [...] MD LAB BLOOD ORDERABLES Final Res ult [facility] ([place]) 1 [facility] [place] [address] * (ABNORMAL) Differential, auto (06/14/2024 12:46 PM [...] BLOOD ORDERABLES Final Res ult REJI CHAMBERS ([place]) 1 [facility] [place] [address] * (ABNORMAL) CBC with auto differential (06/14/2024 [...] ORDERABLES Final Res ult Performing Organization Address City/[facility]/ZIP Co de Phone Number REJI CHAMBERS ([place]) 1 [facility] [place] [address] * Magnesium (06/14/2024 12:46 PM CDT) Magnesium 1.7 1.4 - 2.5 mg/dL Blood 06/14/2024 12:4 6 PM CDT 06/14/2024 2:42 PM CDT us Joleen LOPEZ LAB BLOOD ORDERABLES Alice l Result [facility] ([place]) 1 [facility] Department [place] [address] * (ABNORMAL) Comprehensive metabolic panel (06/14/2024 12:46 PM CDT) Sodium 145 135 - 145 mmol/L Potassium, pl 2.9(C) 3.3 - 4.9 mmol/L [facility] ([place]) Comment:Critical Result call ed by [email or web address] at 2024-06-14 13:13:54. Result Read Back by STEWART MCFARLAND-JOSH Chloride 103 97 - 110 mmol/L CERNER [...] BLOOD ORDERABLES Final Res ult RE[facility]I CHAMBERS [place] 1 [facility] [place] [address] * CTA Head Neck W WO Contrast [...] CT head same day FINDINGS: INTRACRANIAL VESSELS HOH OF [place]: The anterior, middle, posterior cerebral [...] Bernabe Garcia M.D. RB: FRITZ Report ID: [id number] Reading Location: [id number] Procedure Note Bernabe Garcia MD - 05/22/2024 [...] CT head same day FINDINGS: INTRACRANIAL VESSELS HOH OF [place]: The anterior, middle, posterior cerebral [...] Bernabe Garcia M.D. RB: FRITZ Report ID: [id number] Reading Location: [id number] Yong Mcrae MD IMG CT PROCEDURES Final [...] tendency for uric acid stone formation. Source: [place] [employer] Current Interpretive Data was last revised on [...] for microscopic UA and culture not met. [facility] ([place]) Urine 05/22/2024 4:04 PM CDT 05/22/2024 4:08 PM CDT Yong Mcrae MD LAB MICROBIOLOGY - GENERAL O RDERABLES Final Result [facility] CHAM[facility]ERS ([place]) 1 [facility] [place] [address] * XR Chest 1 Vw Portable (05/22/2024 [...] Emeka Chu D.O. AP: AP Report ID: [id number] Reading Location: [id number] Procedure Note Emeka Chu, DO - 05/22/2024 [...] Emeka Chu D.O. AP: AP Report ID: [id number] Reading Location: [id number] Yong Mcrae MD IMG XR PROCEDURES Final Resu lt * ECG 12 lead (05/22/2024 1:14 PM CDT) 05/22/2024 1:14 PM CDT Narrative [facility] - 05/23/2024 9:26 AM CDT Vent Rate: 86 bpm RR Interval: 695 msec [place] Interval: 120 msec QRS Duration: 88 msec QT Interval: 358 msec QTC Interval: 401 msec P-R-T [place]: 38 - 61 - 65 degrees IMPRESSION: SINUS RHYTHM NORMAL ECG NO CHANGE FROM PREVIOUS TRACING NOTED Electronically Signed By: Chapin Padron MD Yong Mcrae MD ECG ORDERABLES Final Result [facility] [employer] [facility] * CT Head WO Contrast [...] Emeka Chu D.O. AP: AP Report ID: [id number] Reading Location: [id number] Procedure Note Emeka Chu, DO - 05/22/2024 [...] Emeka Chu D.O. AP: AP Report ID: [id number] Reading Location: [place] [address] Yong Mcrae MD IM CT PROCEDURES Final Resu lt * (ABNORMAL) [...] BLOOD ORDERABLES Final R esult [facility] ([place]) 1 [facility] [place] [address] * (ABNORMAL) Differential, auto (05/22/2024 12:50 PM CDT) Neutrophil abs 7.5(H) 1.5 - 6.5 K/cumm Imm gran abs 0.0 0.0 - 0.1 K/cumm [facility] ([place]) Lymphocyte abs 1.7 0.8 - 3.3 K/cumm [facility] ([place]) Monocyte abs 1.0(H) 0.2 - 0.8 K/cumm [facility] ([place]) Eosinophil abs 0.2 0.0 - 0.5 K/cumm [facility] ([place]) Basophil abs 0.1 0.0 - 0.1 K/cumm [facility] ([place]) Neutrophil pct 72.0 % [facility] ([place]) Comment: Interpretive [...] Lymphocyte pct 16.5 % [facility] ([place]) Comment: Interpretive Data Percent cell count reference ranges are not reported, since discordance with absolute values may lead to misinterpretation of CBC data. Current Interpretive Data was last revised on 2017. Monocyte pct 9.2 % [facility] ([place]) Comment: Interpretive Data Percent cell count reference ranges are not reported, since discordance with absolute values may lead to misinterpretation of CBC data. Current Interpretive Data was last revised on 2017. Eosinophil pct 1.4 % [facility] ([place]) Comment: Interpretive [...] Final R esult [facility] ([place]) 1 [facility] Department [place] [address] * (ABNORMAL) CBC with auto differential (05/22/2024 12:50 PM CDT) WBC 10.4(H) 3.8 - 9.9 K/cumm Hgb 11.0(L) 11.9 - 15.5 g/dL [facility] ([place]) Hct 35.7 35.6 - 45.5 % [facility] ([place]) Plt 441(H) 150 - 400 K/cumm [facility] ([place]) MPV 9.8 9.1 - 12.3 fL [facility] ([place]) RBC 4.01 3.90 - 5.20 M/cumm [facility] ([place]) MCV 89.0 81.3 - 96.4 fL [facility] ([place]) MCH 27.4 27.1 - 33.3 pg [facility] ([place]) MCHC 30.8(L) 32.3 - 35.7 g/dL [facility] ([place]) RDW CV 16.7(H) 11.1 - 14.9 % [facility] ([place]) RDW SD 54.5(H) 35.7 - 48.1 fL [facility] NRBC abs 0.00 0.00 - 0.01 K/cumm [facility] ([place]) Blood 05/22/2024 12:5 0 PM CDT 05/22/2024 12:59 PM CDT Yong Mcrae MD LAB BLOOD ORDERABLES Final R esult [facility] ([place]) 1 [facility] [place] [address] * (ABNORMAL) Comprehensive metabolic panel (05/22/2024 12:50 PM CDT) Sodium 140 135 - 145 mmol/L Potassium, pl 3.3 3.3 - 4.9 mmol/L [facility]) Chloride 97 97 - 110 mmol/L [facility] CO2 26 22 - 32 mmol/L [facility] ([place]) Anion gap 17(H) 2 - 15 mmol/L [facility] BUN 17 6 - 25 mg/dL [facility] ([place]) Creatinine 1.05 0.60 - 1.10 mg/dL [facility] ([place]) Glucose 153 70 - 199 mg/dL [facility]) Comment: Interpretive Data Fasting glucose [...] ORDERABLES Final R esult Performing Organization Address City/[facility]/ZIP Co de Phone Number [facility] ([place]) 1 [facility] Department [place] [employer] [place] [address] * POCT glucose (05/22/2024 12:43 PM CDT) Glucose, POC 139 70 - 199 mg/dL Blood 05/22/2024 12:4 3 PM CDT 05/22/2024 12:43 PM CDT us Notinfile Unknown LAB POCT ORDERABLES - DEVICE F inal Result Performing Organization Address City/[facility] Co de Phone Number RE[facility] CHAMBERS ([place]) 1 [facility] [place] [address] from Last 3 Months Insurance [facility] MEDICARE ADVANTAGE Advance Directives For more information, please contact: [phone] * Full Code (Latest Code Status on File) Date Activated Date Inactivated Comments 02/19/2024 6:03 PM 02/21/2024 5:09 PM * Full Code Date Activated Date Inactivated Comments 02/11/2024 7:53 AM 02/13/2024 3:37 PM Care Teams Router Operator Pin Relationship Specialty Start Date End Date Fernando Rucker MD [address] [address] PCP - General 05/25/14
--- OUTSIDE RECORDS SUMMARY | 2024-06-17 09:58 | XMS_ITS | Clinical Summary ---
Author Organization [facility] Address [address] [place] [address] Phone Care Team Providers Care Processing Manager Name Role Phone Fernando Rucker MD Primary Care Provider Sylvester Graves MD Unavailable [phone] Allergies Active Allergy Reactions Criticality Noted Date Comments Prochlorperazine Maleate Other (see Comments) 05/11/2015 Chest tightness Metoclopramide Unknown 08/29/2023 Nalbuphine Itching 08/29/2023 Nalbuphine Hcl Itching 05/11/2015 Promethazine Hcl Itching 05/11/2015 Prochlorperazine Itching 08/29/2023 Promethazine Itching 08/29/2023 Sumatriptan Rash 08/29/2023 Medications cyanocobalamin (VITAMIN B-12) 1000 MCG/ML Solution 1 mL by Intramuscular route every 30 days. 4 08/14/19 16 Active polyethylene glycol (MIRALAX) Powder Mix the entire bottle with 64 oz of a clear liquid. Use as directed by the office for colonoscopy prep. 255 g 0 10/02/19 16 Active Additional Information Patient not taking.Reported on 10/14/2023 albuterol 108 (90 Base) MCG/ACT Aerosol Solution take 2 Puffs by inhalation every 4 hours as needed. 05/12/19 24 Active amitriptyline (ELAVIL) 10 MG Tablet Take 2 Tablets by mouth nightly. 05/11/19 24 Active busPIRone (BUSPAR) 10 MG Tablet Take 10 mg by mouth 2 times daily. 04/30/19 24 Active Bevespi Aerosphere 9-4.8 MCG/ACT Aerosol take 2 Puffs by inhalation 2 times daily. 05/11/19 24 Active ondansetron (ZOFRAN) 8 MG Tablet Take 8 mg by mouth every 8 hours as needed. 02/01/20 23 Active Vitamins-Lipotro pics (LIPO FLAVONOID PLUS PO) Take 2 Capsules by mouth 3 times daily as needed (ear ringing). Active Loperamide HCl (Imodium A-D) 2 MG Tablet Take 2 mg by mouth 4 times daily as needed for Diarrhea. Active atorvastatin (LIPITOR) 10 MG Tablet Take 1 Tablet by mouth daily. 90 Tablet 3 06/17/19 24 Active Ergocalciferol (VITAMIN D2 PO) Take 1 Capsule by mouth once a week. 50,000 IU Active albuterol (PROVENTIL, VENTOLIN) (2.5 MG/3ML) 0.083% Nebulizer Soln 1 Vial by Nebulization route every 4 hours as needed for Shortness of Breath. Active HYDROcodone-acet aminophen (NORCO) 7.5-325 MG Tablet Take 1 Tablet by mouth every 6 hours as needed for Moderate or more severe pain. Active famotidine (Zantac [address]) 20 MG Tablet Take 2 Tablets by mouth daily as needed for Heartburn. Do not exceed 2 tablets in one day Active pantoprazole (PROTONIX) 40 MG Tablet Delayed Response Take 1 Tablet by mouth every morning. 09/03/19 24 Active hydroCHLOROthiaz elisha 25 MG Tablet Take 1 Tablet by mouth daily. Hold if systolic BP <100 09/08/19 24 Active apixaban (Eliquis) 5 MG TabletIndication s:Atrial Fibrillation Take 1 Tablet by mouth 2 times daily. Indications: Atrial Fibrillation 60 Tablet 3 09/10/19 24 Active Ferrous Sulfate 325 (65 Fe) MG Tablet Delayed Response Take 1 Tablet by mouth daily. Active predniSONE (DELTASONE) 5 MG Tablet Take 5 mg by mouth daily. rx # [id number] Active buPROPion (WELLBUTRIN) 150 MG XL tablet 10/12/19 24 Active buPROPion (WELLBUTRIN) 150 MG XL tablet Take 150 mg by mouth every morning. Active butalbital-aceta minophen-caffein e (FIORICET, ESGIC) 50-325-40 MG TabletIndication s:Intractable migraine without aura and without status migrainosus Take 1 Tablet by mouth every 6 hours as needed for Migraine. 10 Tablet 05/10/19 Active Active Problems Problem Noted Date Diagnosed Date Acute cystitis without hematuria 08/28/2023 Gait disturbance 08/28/2023 Acute metabolic encephalopathy 08/28/2023 Frequent falls 08/27/2023 TIA (transient ischemic attack) 05/26/2023 CVA (cerebral vascular accident) 05/19/2023 Paroxysmal atrial fibrillation 05/19/2023 Hypertension 05/19/2023 Migraines 05/19/2023 COPD (chronic obstructive pulmonary disease) 07/2023 Gout 05/19/2023 Anxiety and depression 05/19/2023 Metatarsalgia, left foot 11/26/2016 Pain of left foot 11/26/2016 [place] or callus 11/26/2016 Fracture, stress, metatarsal 09/26/2015 Resolved Problems Problem Noted Date Diagnosed Date Resolved Date Acute kidney injury 05/19/2023 05/21/19 Hypokalemia 05/19/2023 05/21/2023 Leukocytosis 05/19/2023 05/21/2023 Encounters Date Type Department Care Team Description 06/06/2024 Transcribe Orders [facility] Central Scheduling [address] [place] [address] Fernando Rucker MD Encounter for screening mammogram for malignant neoplasm of breast (Primary Dx) 05/09/2024 Refill [facility] Neurology [facility] [address] [place] [address] Sylvester Graves MD Medication Refill 05/09/2024 Refill [facility] [address] [place] [address] Sylvester Graves MD 03/31/2024 Refill [facility] Neurology [facility] [address] [place] [address] Sylvester Graves MD Medication Refill from Last 3 Months Immunizations Immunization Administration [...] alcohol) 1 glass of wine a month [facility] Utilities Answer Date Recorded In the past 12 months has [employer] electric, gas, oil, or water company threatened [...] 05/19/2023 How often do you attend chur ch or uatsdin services? Never 05/19/2023 Do you belong to any clubs o r organizations such as sikhism groups, unions, fraternal or athletic groups, or [...] and heating? Not hard at all 05/19/2023 [facility] of Occupat ional Health - Occupational Stress Questionnaire Answer Date Recorded [...] time in the past 12 m [facility], were you homeless or living in [...] Comments Blood Pressure 175/78 02/09/2024 8:15 PM UNDERCOATER Pulse 116 02/09/2024 8:15 PM UNDERCOATER Temperature 36.8 C (98.2 F) 02/09/2024 6:08 PM UNDERCOATER Respiratory Rate 22 02/09/2024 9:09 PM UNDERCOATER Oxygen Saturation 95% 02/09/2024 8:15 PM UNDERCOATER Inhaled Oxygen Concentration - - Weight 57.6 kg (127 lb) 02/09/2024 6:08 PM UNDERCOATER Height 157.5 cm (5' 2 ) 02/09/2024 6:08 PM UNDERCOATER Body Mass Index 23.23 02/09/2024 6:08 PM UNDERCOATER Plan of Treatment Upcoming Encounters Date Type Department Care Team (Late st Contact Info) Description 07/01/2024 4:45 PM CDT Appointment [facility] Mammography [address] [place] [address] Fernando Rucker MD [address] [address] Discharge Disposition: Discharged to home or Selfcare 12/19/2024 10:30 AM CDT [facility] [address] [place] [address] Angela Ferrara APRN, VISCOSE CELLAR WORKER [address] [place] [address] Health Maintenance Due Date Last Done Comments Pneumococcal Immunization (50+ years) (1 of 2 - PCV) 1973 Cologuard 2004 Immunochemical Fecal Occult Blood 2004 Zoster Immunization (1 of 2) 2004 Respiratory Syncytial Virus (RSV) Immunization (Adult) (1 - Risk 60-74 years 1-dose series) 2014 DEXA Bone Density 10/15/2017 10/16/2015 Mammogram 03/19/2023 03/19/2022, 11/0 04/2020, 12/26/2019, Additional history exists SARS-COV-2 Immunization ( season) 2023 05/18/2020, 04/27/2020 Influenza Immunization (Season Ended) 2024 12/31/2020, 12/29/2019, 12/14/2018, Additional history exists Colonoscopy 03/21/2026 03/21/2016 Colorectal [...] Procedure Name Priority Date/Time Associated Diagnosis Comments [facility] SCREENING BILATERAL DIGITAL W CAD W JACKSON Routine 03/19/2022 12:17 PM UNDERCOATER Encounter for screening mammogram for malignant neoplasm of breast HEPATITIS C ANTIBODY Routine 01/09/2018 7:36 AM CDT Primary osteoarthritis of right hand Primary osteoarthritis, left hand Hyperuricemia Hypermobility syndrome JESUS BONE DENSITOMETRY AXIAL SKELETON Routine 10/16/2015 1:46 PM CDT Fracture, stress, metatarsal, left, initial encounter from Last 3 Months or Most Recently Relevant to Health Maintenance Results * JESUS SCREENING BILATERAL DIGITAL W CAD W JACKSON (03/19/2022 12:17 PM UNDERCOATER) Anatomical Region Laterality Modality breast Bilateral Mammography 03/19/2022 12:1 9 PM UNDERCOATER Narrative 03/19/2022 4:16 PM UNDERCOATER - JESUS SCREENING BILATERAL DIGITAL W CAD [...] exams dated: 01/15/2021, 12/26/2019, 10/23/2018, and 11/23/2018 [facility]. BREAST TISSUE:The tissue of both breasts is [...] exam. Electronically signed by: Melissa self/paulette:03/19/2022 13:29:27 Lighting Designer(s): RT Aaron(R)(M), [facility] letter sent: Normal Exam Reading location: [facility] [place] BI-RADS: 2 Benign Procedure Note Melissa Galarza [...] exams dated: 01/15/2021, 12/26/2019, 10/23/2018, and 11/23/2018 [facility]. BREAST TISSUE:The tissue of both breasts is [...] exam. Electronically signed by: Melissa self/paulette:03/19/2022 13:29:27 Lighting Designer(s): RT Aaron(R)(M), [facility] letter sent: Normal Exam Reading location: [facility] BI-RADS: 2 Benign us Fernando Rucker MD IMG MAMMO ORDERABLES Final Result * HEPATITIS C ANTIBODY (01/09/2018 7:36 AM CDT) hepatitis C antibody 0.11 <1 S/CO 01/09/2018 3:02 PM CDT [facility] Comment: Signal/Cutoff ratio < 0.79 is Nondetected Signal/Cutoff ratio 0.80-0.99 is Grayzone Signal/Cutoff ratio > 0.99 is Detected Supplemental assays are recommended if signal/cutoff ratio is >/=1.00. Signal/cutoff ratio result >/= 5.00 is 97% predictive of positivity for recombinant immunoblot assay (RIBA) and will be reported to the [place] Department of Public [facility] as required. Blood specimen (specimen) Venipuncture / Unknown 01/09/2018 7:36 AM CDT 01/09/2018 8:12 AM CDT us Canelo Mckeon MD CHEMISTRY ORDERABLES Final Resu lt [facility] [address] [place] [address], [place] * JESUS BONE DENSITOMETRY AXIAL SKELETON (10/16/2015 1:46 PM CDT) Anatomical Region Laterality Modality BODY N/A Other 10/16/2015 3:19 PM CDT Impressions 10/16/2015 3:22 PM CDT IMPRESSION: Low bone mass. The patient's risk [...] to Prevention and Treatment of Osteoporosis (http://www.nof.org/professionals/clinical-guidelines) Narrative 10/16/2015 3:22 PM CDT EXAMINATION: DXA Bone Density HISTORY: 60 year [...] calcium, and hormone replacement therapy. COMPARISON(S): None MOTHER HELPER/MODEL: [employer] (S/N [id number]) FINDINGS: AP lumbar spine L1-L4 Total BMD is 1.236 g/tn3Q-plhsv is 0.3 Left Hip Total BMD is 0.767 g/mo0U-gggfg is -1.9 Neck BMD is 0.785 g/xu3X-ajbov is -1.8 Fracture risk assessment (FRAX): 10 [...] PM: Latesha Rodriguez M.D. Radiologist MD: DOMINIK Procedure Note Tj [...] calcium, and hormone replacement therapy. COMPARISON(S): None MOTHER HELPER/MODEL: [employer] (S/N [id number]) FINDINGS: AP lumbar spine L1-L4 Total BMD is 1.236 g/na5I-cdvma is 0.3 Left Hip Total BMD is 0.767 g/ew4W-wxosp is -1.9 Neck BMD is 0.785 g/jt4H-xycoj is -1.8 Fracture risk assessment (FRAX): 10 [...] AN ELECTRONICALLY VERIFIED REPORT 10/16/2015 3:19 PM: Tj Rodgers M.D. Tj Rodgers M.D. Radiologist MD: DOMINIK IMPRESSION: Low bone [...] Relevant to Health Maintenance Insurance MEDICARE [facility] Advance Directives * Full Code (Latest Code [...] 4:56 PM 07/02/2023 2:35 PM Care Teams Processing Manager Relationship Specialty Start Date End Date Fernando Rucker MD [address] [address] PCP - General Family Medicine 05/11/15 Sylvester Graves MD [address] [place] [address] Consulting Physician Neurology 06/17/23
--- OUTSIDE RECORDS SUMMARY | 2024-06-17 09:58 | XMS_ITS | Encounter Summary ---
Author Organization [facility] Address [address] [place] [address] Phone Care Team Providers Care Field Operator Name Role Phone Fernando Rucker MD Primary Care Provider Sylvester Graves MD Unavailable [phone] Reason for Visit * Reason Comments Medication Refill Encounter Details Date Type Department Care Team (Late st Contact Info) Description 05/09/2024 Refill [facility] [address] [place] [address] Sylvester Graves MD [address] [place] [address] Medication Refill Social History Tobacco Use Types Packs/Day Years Used Date Smoking Tobacco: Never Smokeless Tobacco: Never Alcohol Use Standard Drinks/Week Comments Yes 0 (1 standard drink = 0.6 oz pur e alcohol) 1 glass of wine a month [facility] Utilities Answer Date Recorded In the past 12 months has [employer] electric, gas, oil, or water company threatened [...] week 05/19/2023 How often do you attend [facility] or sikh services? Never 05/19/2023 Do you belong to any clubs o r organizations such as hindu groups, unions, fraternal or athletic groups, or [...] and heating? Not hard at all 05/19/2023 [facility] of Occupat ional Health - Occupational Stress [...] place to sleep or slept in a senior care (including now)? No 05/19/2023 Housing Stability Vital Sign Answer Gm e Recorded In the last 12 months, was t here a time when you were not able to pay the mortgage or rent on time? No 08/28/2023 In the past 12 months, how m any times have you moved where you were living? 1 08/28/2023 At any time in the past 12 m [facility], were you homeless or living in a senior care (including now)? No 08/28/2023 Sexually Active Control [...] Description 07/01/2024 4:45 PM CDT Appointment [facility] Mammography [address] [place] [address] Fernando Rucker MD [address] [address] Discharge Disposition: Discharged to home or Selfcare 12/19/2024 10:30 AM CDT [facility] [address] [place] [id number] Angela Ferrara APRN, ELECTRIC FORK OPERATOR [address] [place] [address] documented as of this encounter Visit Diagnoses Diagnosis Intractable migraine without aura and without status migrainosus Migraine without aura, with intractable migraine, so stated, without mention of status migrainosus documented in this encounter Additional Health Concerns Assessment Noted Time PHQ-9 Depression Total Score: 0 06/25/19 18 12:00 PM CDT documented as of this encounter Care Teams Field Operator Relationship Specialty Start Date End Date Fernando Ruckre MD [address] [address] PCP - General Family Medicine 05/11/15 Sylvester Graves MD [address] [place] [id number] Consulting Physician Neurology 06/17/23 documented as of this encounter
--- OUTSIDE RECORDS SUMMARY | 2024-06-17 09:59 | XMS_ITS ---
Author Organization [facility] Address [address] [place] [address] [place] [address] Care Team Providers Care Office Helper Clerical Name Role Phone MAGO SCOTT, KEHINDE Primary Care Provider Shamar Garcia Unavailable [phone] ALLERGIES Allergen (clinical drug ingredient) Drug/Non Drug Allergy documented on EMR Reaction Allergy Type Onset Date Status nalbuphine Nalbuphine itching Drug Allergy Activ e promethazine Promethazine itching Drug Allergy A ctive sumatriptan Sumatriptan rash Drug Allergy Act elizabeth REASON FOR VISIT Follow Up, Right > Left Hand Pain MEDICATIONS Medication SIG (Take, Route, Frequency, Duration) Notes Start Date End Date Status Potassium Chloride Mag ER 20 MEQ TAKE 1 TABLET BY MOUTH ONCE DAILY NEEDED. TAKE WITH LASIX. Oral for 30 Active Ondansetron 8 MG DISSOLVE 1 TABLET IN MOUTH EVERY 12 HOURS NEEDED FOR NAUSEA AND VOMITING Oral for 15 R112,Unavaila ble Active buPROPion HCl ER (XL) 150 MG TAKE 1 TABLET BY MOUTH IN THE MORNING Oral for 30 Active Ipratropium-Albuterol 0.5-2.5 (3) MG/3ML USE 3 ML IN NEBULIZER 4 TIMES DAILY NEEDED FOR SHORTNESS OF BREATH Inhalation for 30 J449,Unavaila ble Active Furosemide 40 MG TAKE 1 TABLET BY MOUTH ONCE DAILY Oral for 30 Active Albuterol Sulfate (2.5 MG/3ML) 0.083% INHALE 1 VIAL VIA NEBULIZER EVERY 4-6 HOURS NEEDED FOR SHORTNESS OF BREATH OR WHEEZING Inhalation for 10 J449,Unavaila ble Active predniSONE 5 MG 1 tablet Orally Once a day for 30 day(s) 09/11/2023 Active HYDROcodone-Acetaminophen 7.5-325 MG 1 tablet as needed Orally every 6 hrs for 30 days MAY FILL 05/26/24 05/24/2024 Active hydroCHLOROthiazide 25 MG TAKE 1 TABLET BY MOUTH DAILY Oral for 90 Active Ferrous Sulfate 325 (65 Fe) MG TAKE 1 TABLET BY MOUTH DAILY. Oral for 30 D509,Unavaila ble Active Atorvastatin Calcium 10 MG TAKE 1 TABLET BY MOUTH DAILY Oral for 90 Active Cqqcwjoyeu-MQAQ-Eolbethv 50-325-40 MG TAKE 1 TABLET BY MOUTH EVERY 4 HOURS NEEDED FOR MIGRAINE Oral for 1 E785,Unavaila ble Active Eliquis 5 MG 1 tablet Oral Twice a day Active Cyanocobalamin 1000 MCG/ML ADMINISTER 1 ML UNDER THE SKIN MONTHLY Injection for 90 D519,Unavaila ble Active Lisinopril 20 MG TAKE 1 TABLET BY MOUTH AT BEDTIME Oral for 90 Active Amitriptyline HCl 10 MG 1 tablet at bedtime Oral Once a day Active Premarin 0.625 MG 1 tablet Oral Once a day Active Metoprolol Succinate ER 50 MG 1 tablet Oral Once a day Active Vitamin D (Ergocalciferol) 1.25 MG (19977 UT) 1 capsule Oral Once a day Active busPIRone HCl 10 MG 1 tablet Oral Twice a day Active Bevespi Aerosphere 9-4.8 MCG/ACT 2 puffs Inhalation Twice a day Active Colchicine 0.6 MG 1 tablet Oral once a day Active LORazepam 0.5 MG 1 tablet at bedtime as needed Oral Once a day Active Meclizine HCl 25 MG TAKE 1 TABLET BY MOUTH EVERY 8 HOURS NEEDED FOR DIZZINESS Oral for 20 H8113,Unavail able Active Albuterol Sulfate HFA 108 (90 Base) MCG/ACT INHALE 2 PUFFS BY MOUTH EVERY 4 HOURS NEEDED FOR SHORTNESS OF BREATH OR WHEEZING Inhalation for 16 J209,Unavaila ble Active Vitamin D3 1.25 MG (89901 UT) TAKE 1 CAPSULE BY MOUTH ONCE WEEKLY Oral for 98 Active Potassium Chloride ER 20 MEQ 1 tablet with food Orally Once a day for 30 day(s) Active SOCIAL HISTORY Tobacco Use: Social History Observation Description Date Details (start date - stop date) Never Smoker NA - NA Sex Assigned At : Social History Observation Description Sex Assigned At Unknown Tobacco Use/Smoking Question Answer Notes Are you a nonsmoker VITAL SIGNS Blood pressure systolic 130 mm Hg 05/25/19 25 Blood pressure diastolic 77 mm Hg 025 Heart Rate 92 /min 05/24/2024 Respiratory Rate 18 /min 05/24/2024 Height 5 ft 1 in in 05/24/2024 Weight 155 lbs 05/24/2024 BMI 29.28 kg/m2 05/24/2024 Encounters Encounter Location Date Provider Diagnosis [facility] [address] [facility] [place] [address] 05/24/2024 Shamar Hernandez Pain in joints of right hand M25.541 ; Rheumatoid arthritis, unspecified M06.9 ; Pain in joints of unspecified hand M25.549 ; Erosive (osteo)arthritis M15.4 and intermission coordinator (current) use of opiate analgesic Z79.891 ASSESSMENTS Encounter Date Diagnosis Assessment Notes Treatment Notes Treatment Clinical Notes 05/24/2024 Pain in joints of right hand (ICD-10 - M25.541) The side effects of opioid analgesics including sedation, constipation potentially resulting in bowel obstruction, respiratory depression, tolerance, addiction, hyperalgesia, withdrawal after abrupt discontinuation, immunosuppression and endocrine abnormalities such as hypocortisolism and hypogonadism resulting in sexual dysfunction which may become permanent were discussed and the patient expressed an understanding of the above. The patient was advised to avoid driving, climbing ladders and operating dangerous machinery after taking this medication. The patient was advised to avoid consuming alcohol, illicit drugs and sedative/hypnotic drugs in conjunction with this medication due to the risk of profound respiratory depression and . The patient was directed to utilize the lowest effective dose possible. The importance of safe storage and keeping opioid medications locked up at all times in order to prevent theft and unintended consumption by friends, relatives or anyone else was discussed with the patient at length. The patient agrees to fully comply with the above. The [place] and [place] PDMP were reviewed and were appropriate 05/24/2024 Rheumatoid arthritis, unspecified (ICD-10 - M06.9) 05/24/2024 Pain in joints of unspecified hand (ICD-10 - M25.549) 05/24/2024 Erosive (osteo)arthritis (ICD-10 - M15.4) 05/24/2024 intermission coordinator (current) use of opiate analgesic (ICD-10 - Z79.891) 05/24/2024 Other The above-named patient was evaluated in conjunction with Dr. Hernandez. I have discussed and reviewed all of the pertinent history, physical examination findings and diagnostic imaging results with him. As a result of our discussion, Dr. Hernandez has determined the above assessment and directed the treatment plan. This note was dictated using voice recognition software and therefore inadvertent errors may have occurred. This note was dictated by ARIS Tan. Total Time Spent with Patient and Medical Decision Makin minutes PLAN OF TREATMENT Medication Medication Name Sig Start Date Stop Date Notes HYDROcodone-Acetaminophen 7.5-325 MG 1 tablet as needed Orally every 6 hrs for 30 days 05/24/2024 MAY FILL 05/26/24 Treatment Notes Assessment Notes Pain in joints of right hand The side ef fects of opioid analgesics including sedation, constipation potentially resulting in bowel obstruction, respiratory depression, tolerance, addiction, hyperalgesia, withdrawal after abrupt discontinuation, immunosuppression and endocrine abnormalities such as hypocortisolism and hypogonadism resulting in sexual dysfunction which may become permanent were discussed and the patient expressed an understanding of the above. The patient was advised to avoid driving, climbing ladders and operating dangerous machinery after taking this medication. The patient was advised to avoid consuming alcohol, illicit drugs and sedative/hypnotic drugs in conjunction with this medication due to the risk of profound respiratory depression and . The patient was directed to utilize the lowest effective dose possible. The importance of safe storage and keeping opioid medications locked up at all times in order to prevent theft and unintended consumption by friends, relatives or anyone else was discussed with the patient at length. The patient agrees to fully comply with the above. The [place] PDMP were reviewed and were appropriate Other The above-named patient was evaluated in conjunction with Dr. Hernandez. I have discussed and reviewed all of the pertinent history, physical examination findings and diagnostic imaging results with him. As a result of our discussion, Dr. Hernandez has determined the above assessment and directed the treatment plan. This note was dictated using voice recognition software and therefore inadvertent errors may have occurred. This note was dictated by ARIS Tan. Total Time Spent with Patient and Medical Decision Makin minutes Next Appt Details Follow Up: 4 Weeks OPV, Reas on: Provider Name:Shamar sterling, 06/22/2024 10:00:00 AM, [address] [place], [address], Progress Notes * Examination Category Sub-Category Detail Notes Examination/ Pre-Anesthesia Assessment General: The patient is alert and jey ented X 3 in moderate distress secondary to pain HEENT: Normocephalic, atrau matic. PERRL. The oropharynx is clear Neck: There is limited ran ge of motion of the cervical spine to 60 degrees with extension and lateral rotation bilaterally. There is tenderness to palpation over the bilateral C3-4 through C7-T1 facet joints. Extension and lateral rotation of the cervical spine reproduces the patients typical axial neck pain. The axial loading test is positive. There is diffuse tenderness to palpation over the bilateral cervical paraspinal muscles and significant muscle spasm throughout. There are palpable myofascial trigger points within the body of the trapezius muscles bilaterally Heart: Regular rate and rhy thm Chest: Clear to auscultatio n bilaterally Abdomen: Soft and benign with normal bowel sounds throughout Musculoskeletal and Extremities: There i s diffuse tenderness to palpation about the right thumb DIP joint and crepitus with range of motion testing. There is also diffuse tenderness to palpation about the bilateral shoulders and knees Neurological: There are no focal s trength deficits in the bilateral upper and lower extremities Skin: Clean, dry and intac t Psychiatric: Mood and affect are normal History and Physical Notes * HPI (History of Present Illness) Category Sub-Category Detail Notes Pain Management Radiographic Imaging CT cervical spine done on 11/07/21 demonstrates DDD as well as bilateral facet and uncovertebral hypertrophy from C3-4 through C7-T1. DDD is most severe at C4-5. There is right foraminal stenosis at C3-4. An x-ray of the left hand done on 05/11/15 demonstrates severe erosive arthritis of all 5 digits Assessment and Follow-up: Follow-up Plan documen kiana:: Yes MIPS Quality 2020: MIPS Documented:: Compliant
--- OUTSIDE RECORDS SUMMARY | 2024-06-17 09:59 | XMS_ITS ---
Author Organization [facility] Address [address] [place] [address] [place] [address] Care Team Providers Care Video Machines Mechanic Name Role Phone KEHINDE MERCEDES MD Primary Care Provider Shamar Garcia Unavailable [phone] ALLERGIES Allergen (clinical drug ingredient) Drug/Non Drug Allergy documented on EMR Reaction Allergy Type Onset Date Status nalbuphine Nalbuphine itching Drug Allergy Activ e promethazine Promethazine itching Drug Allergy A ctive sumatriptan Sumatriptan rash Drug Allergy Act elizabeth REASON FOR VISIT Follow Up, Right > Left Hand Pain MEDICATIONS Medication SIG (Take, Route, Frequency, Duration) Notes Start Date End Date Status Amitriptyline HCl 10 MG 1 tablet at bedtime Oral Once a day Active Albuterol Sulfate HFA 108 (90 Base) MCG/ACT INHALE 2 PUFFS BY MOUTH EVERY 4 HOURS NEEDED FOR SHORTNESS OF BREATH OR WHEEZING Inhalation for 16 J209,Unavaila ble Active Colchicine 0.6 MG 1 tablet Oral once a day Active LORazepam 0.5 MG 1 tablet at bedtime as needed Oral Once a day Active Bevespi Aerosphere 9-4.8 MCG/ACT 2 puffs Inhalation Twice a day Active Ondansetron 8 MG DISSOLVE 1 TABLET IN MOUTH EVERY 12 HOURS NEEDED FOR NAUSEA AND VOMITING Oral for 15 R112,Unavaila ble Active Vitamin D3 1.25 MG (00269 UT) TAKE 1 CAPSULE BY MOUTH ONCE WEEKLY Oral for 98 Active HYDROcodone-Acetaminophen 7.5-325 MG 1 tablet as needed Orally every 6 hrs for 30 days 04/26/2024 Active Potassium Chloride ER 20 MEQ 1 tablet with food Orally Once a day for 30 day(s) Active Meclizine HCl 25 MG TAKE 1 TABLET BY MOUTH EVERY 8 HOURS NEEDED FOR DIZZINESS Oral for 20 H8113,Unavail able Active Ferrous Sulfate 325 (65 Fe) MG TAKE 1 TABLET BY MOUTH DAILY. Oral for 30 D509,Unavaila ble Active Ipratropium-Albuterol 0.5-2.5 (3) MG/3ML USE 3 ML IN NEBULIZER 4 TIMES DAILY NEEDED FOR SHORTNESS OF BREATH Inhalation for 30 J449,Unavaila ble Active Furosemide 40 MG TAKE 1 TABLET BY MOUTH ONCE DAILY Oral for 30 Active buPROPion HCl ER (XL) 150 MG TAKE 1 TABLET BY MOUTH IN THE MORNING Oral for 30 Active Potassium Chloride Mag ER 20 MEQ TAKE 1 TABLET BY MOUTH ONCE DAILY NEEDED. TAKE WITH LASIX. Oral for 30 Active predniSONE 5 MG 1 tablet Orally Once a day for 30 day(s) 09/11/2023 Active hydroCHLOROthiazide 25 MG TAKE 1 TABLET BY MOUTH DAILY Oral for 90 Active Atorvastatin Calcium 10 MG TAKE 1 TABLET BY MOUTH DAILY Oral for 90 Active Ctvsjwnqcz-TWDK-Urjjhsms 50-325-40 MG TAKE 1 TABLET BY MOUTH EVERY 4 HOURS NEEDED FOR MIGRAINE Oral for 1 E785,Unavaila ble Active Albuterol Sulfate (2.5 MG/3ML) 0.083% INHALE 1 VIAL VIA NEBULIZER EVERY 4-6 HOURS NEEDED FOR SHORTNESS OF BREATH OR WHEEZING Inhalation for 10 J449,Unavaila ble Active Premarin 0.625 MG 1 tablet Oral Once a day Active Eliquis 5 MG 1 tablet Oral Twice a day Active Metoprolol Succinate ER 50 MG 1 tablet Oral Once a day Active Cyanocobalamin 1000 MCG/ML ADMINISTER 1 ML UNDER THE SKIN MONTHLY Injection for 90 D519,Unavaila ble Active Lisinopril 20 MG TAKE 1 TABLET BY MOUTH AT BEDTIME Oral for 90 Active Vitamin D (Ergocalciferol) 1.25 MG (39555 UT) 1 capsule Oral Once a day Active busPIRone HCl 10 MG 1 tablet Oral Twice a day Active SOCIAL HISTORY Tobacco Use: Social History Observation Description Date Details (start date - stop date) Never Smoker NA - NA Sex Assigned At : Social History Observation Description Sex Assigned At Unknown Tobacco Use/Smoking Question Answer Notes Are you a nonsmoker VITAL SIGNS Blood pressure systolic 108 mm Hg 04/26/19 25 Blood pressure diastolic 69 mm Hg 025 Heart Rate 84 /min 04/26/2024 Respiratory Rate 18 /min 04/26/2024 Height 5 ft 1 in in 04/26/2024 Weight 157 lbs 04/26/2024 BMI 29.66 kg/m2 04/26/2024 Encounters Encounter Location Date Provider Diagnosis [facility] [address] [facility] [place] [address] 04/26/2024 Shamar Stynowick Pain in joints of right hand M25.541 ; Rheumatoid arthritis, unspecified M06.9 ; Pain in joints of unspecified hand M25.549 ; Erosive (osteo)arthritis M15.4 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 The [place] and [place] PDMP were reviewed and were appropriate 04/26/2024 Pain in joints of unspecified hand (ICD-10 - M25.549) 04/26/2024 Erosive (osteo)arthritis (ICD-10 - M15.4) 04/26/2024 residential (current) use of opiate analgesic (ICD-10 - Z79.891) The patient submitted a urine sample for drug screening to ensure compliance. 04/26/2024 Other The above-named patient was evaluated in [...] Orally every 6 hrs for 30 days 04/26/2024 Treatment Notes Assessment Notes Rheumatoid arthritis, unspecified The si de effects of opioid analgesics including sedation, constipation [...] to fully comply with the above. 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 Other The above-named patient was evaluated in [...] Provider Name:Shamar sterling, 06/22/2024 10:00:00 AM, [address] [facility] [address], [place], [address], Progress Notes * Examination Category Sub-Category Detail [...]
--- OUTSIDE RECORDS SUMMARY | 2024-06-17 09:59 | XMS_ITS ---
Author Organization [facility] yu Address [address] [place] [address] Care Team Providers Care Dispatcher Relay Name Role Phone Fernando Rucker MD Primary Care Provider Judie HallOpal Unavailable [phone] Allergies Allergen (clinical drug ingredient) Drug/Non Drug Allergy documented on EMR Reaction Allergy Type Onset Date Status metoclopramide Metoclopramide HCl Unknown Drug Allergy 11/2019 Active prochlorperazine Prochlorperazine Unknown Drug Allergy 11/2019 Active sumatriptan SUMAtriptan Unknown Drug Allergy 10/23/2019 Ac tive nalbuphine Nalbuphine Unknown Drug Allergy 10/23/2019 Acti ve promethazine Promethazine Unknown Drug Allergy 10/23/2019 Active Results Component Value Reference Range Notes CMP(COMPREHENSIVE METABOLIC PANEL) Reviewed date:04/20/2024 01:51:02 PM Interpretation:Lab Result Generalized Performing Lab:[facility], [address], [place], [address] Notes/Report: Sodium 137 133-146 mmol/L Potassium 3.1 3.5-5.1 mmol/L Chloride 94 98-107 mmol/L Carbon Dioxide 29 21-31 mmol/L Anion Gap 14 4-13 mmol/L Blood Urea Nitrogen 18 7-25 mg/dL Creatinine 0.98 0.60-1.30 mg/dL eGFRcr (CKD-EPI 2020) 62 >=60 mL/min/1.73 m2 Calcium 9.6 8.3-10.5 mg/dL Glucose 123 70-100 mg/dL Protein, Total 6.8 6.4-8.3 g/dL Albumin 4.0 3.5-5.0 g/dL ALT 16 9-43 units/L Alkaline Phosphatase 84 34-104 units/L AST 20 13-39 units/L Bilirubin, Total 0.7 0.2-1.2 mg/dL CBC W/DIFF Reviewed date:04/20/2024 01:51:02 PM Interpretation:Lab Result Generalized Performing Lab:[facility], [address], [place], [address] Notes/Report: WBC 10.2 3.5-10.5 10'3/uL RBC 3.87 (Based on docume nted legal sex) 3.80-5.20 10'6/uL HGB 10.6 (Based on docume nted legal sex) 11.6-15.4 g/dL HCT 35.3 (Based on docume nted legal sex) 34.0-45.0 % MCV 91.2 80.0-99.0 fL MCH 27.4 27.0-34.0 pg MCHC 30.0 32.0-35.5 g/dL RDW 17.8 11.0-15.0 % PLT 352 150-400 10'3/uL MPV 11.0 8.8-12.1 fL Neutrophils 67.0 34.0-73.0 % Lymphocytes 20.1 15.0-50.0 % Monocytes 10.6 1.0-15.0 % Eosinophils 1.2 0.0-8.0 % Basophils 0.4 0.0-2.0 % Immature Granulocytes 0.7 No defined reference range % Immature Granulocytes (IG) represents automated enumeration of Metamyelocytes, Myelocytes and Promyelocytes when IG is < 5%. Blasts are not included in IG and reported separately if present. Absolute Neutrophils 6.9 1.5-8.0 10'3/uL Absolute Lymphocytes 2.1 1.0-4.0 10'3/uL Absolute Monocytes 1.1 0.2-1.0 10'3/uL Absolute Eosinophils 0.1 0.0-0.6 10'3/uL Absolute Basophils 0.0 0.0-0.3 10'3/uL Absolute Immature Granulocytes 0.1 0.00-0.10 10'3/uL Reference ranges for nonbinary/intersex or unspecified gender patients have not been established. Please refer to the following table for ranges established for cisgender patients and evaluate in the clinical context of the individual patient: [email or web address]://labhandbook.or.org/ GenderX REASON FOR VISIT yd/3 month follow up/flc, inflammatory arthritis Medications Medication SIG (Take, Route, Frequency, Duration) Notes Start Date End Date Status HYDROcodone-Acetamin ophen 5-325 MG prn Oral Active B 12 injection - once monthly - *Reorder from [facility] for eRx and Interaction Alerts* Active Eliquis 5 MG 1 tablet Orally Twice a day for 30 day(s) Active Lipo-Flavonoid Plus 200-100 mg ORAL *[facility]* Active Cephalexin 500 MG Oral for 10 Days Active predniSONE 5 MG TAKE 1 TABLET BY MOUTH DAILY for 30 Active busPIRone HCl 10 MG 1 tablet Orally Twice a day Active Methotrexate Sodium 2.5 MG 4 Orally weekly for 90 days 10/27/2023 Active Metoprolol Succinate ER 50 MG Oral for 90 Days Active Folic Acid 1 MG 1 tablet Orally Once a day for 30 days 10/27/2023 04/23/2024 Active predniSONE 5 MG 1 Orally every other day for 30 days Active Vitamin D (Cholecalciferol) 10 MCG (400 UNIT) weekly Oral Active Ondansetron 8 MG prn Oral Act elizabeth Vital Signs Blood pressure systolic 130 mm Hg 04/19/19 25 Blood pressure diastolic 78 mm Hg 025 Heart Rate 99 /min 04/19/2024 Height 62 in 04/19/2024 Weight 160 lbs 04/19/2024 BMI 29.26 kg/m2 04/19/2024 Oximetry 98 % 04/19/2024 Height-cm 157.48 cm 04/19/2024 Weight-kg 72.56 kg 04/19/2024 Encounters Encounter Location Date Provider Diagnosis [facility] [address] [place] [address] 04/19/2024 Opal Hall Inflammatory arthrit is M19.90 ; SEBLE positive R76.8 ; Osteoarthritis, unspecified osteoarthritis type, unspecified site M19.90 and High risk medication use Z79.899 Assessments Encounter Date Diagnosis (ICD Code) Assessment Notes Treatment Notes Treatment Clinical Notes Section Notes 04/19/2024 Inflammatory arthritis (ICD-10 - M19.90) on MTX 10mg/wk, labs today, decrease prednisone to 5mg QOB, return in 3 months 04/19/2024 SEBLE positive (ICD-10 - R76.8) on MTX 10mg/wk, labs today, decrease prednisone to 5mg QOB, return in 3 months 04/19/2024 Osteoarthritis, unspecified osteoarthritis type, unspecified site (ICD-10 - M19.90) on MTX 10mg/wk, labs today, decrease prednisone to 5mg QOB, return in 3 months 04/19/2024 High risk medication use (ICD-10 - Z79.899) on MTX 10mg/wk, labs today, decrease prednisone to 5mg QOB, return in 3 months Plan Of Treatment Medication Medication Name Sig Start Date Stop Date Notes predniSONE 5 MG 1 Orally every other day for 30 days Next Appt Details Follow Up: 3 Months, Reason: Provider Name:Opal Hall, 07/21 11:45:00 AM, [address] [facility], [address], [address], Progress Notes * Monse MORRISDOB:[birth year] (69 yo F)Acc No.[id number]:04/19/2024 Progress Notes Patient: Monse TRUJILLO Provider: Danie HALL MD :1955 A ge:69 Y S ex:Female Date:04/19/2024 Address:[address] [place] [address] Pcp:Fernando Rucker MD Subjective: * Chief Complaints: * Y d/3 month follow up/flcInflammatory arthritis * HPI: G eneral Follow up: on MTX 10mg/wk and prednisone 5mg/day, thumbs aching, R thumb a little swollen skin tear on R leg last week, went to urgent care, on antibiotics off nabumetone due to kidney problem, had a stroke in 04/2023, SEBLE 1:320 (homogeneous), cascade (-), RF/CCP (-), joint pain steroid responsive ROS: +occasional oral ulcers, no sicca symptoms, no rashes, no hair loss, no photosensitivity, no Raynaud's. plaquenil caused ?double vision. arava caused hair loss and dizziness A-fib, had a stroke on 04/2023, now on eliquis takes colcrys for possible gout. * ROS: G eneral / Constitutional: Patient denies f rashawn, chills. P atient complains of?fatigue. M usculoskeletal: Patient complains of s ee HPI. S kin: Patient denies r domenico. * Medical History: * Surgical History: B reast biopsy; 1283-33-66Bfzter tunnel release; 8987-10-43Gbfxbcodhb; 2019-10-23 * Hospitalization/Major Diagno stic Procedure: * Family History: M igrated Family History: Arthritis , Cancer , Diabetes , Hypertension . * Social History: M igrated Social History: M igrated Social History: :: 2 Children , Exercise :: Walks :: note : 06/26/2022 - daily, Marital Status :: , Substance Use :: Alcohol-Does not give any significant history , Substance Use :: Tobacco :: Never. * Medications: T akingEliquis 5 MG Tablet 1 tablet Orally Twice a day Lipo-Flavonoid Plus 200-100 mg TABLET ORAL , Notes to Pharmacist: *Reorder from [facility] for eRx and Interaction Alerts*HYDROcodone-Acetaminophen 5-325 MG Tablet prn Oral B 12 injection - once monthly - , Notes to Pharmacist: *Reorder from [facility] for eRx and Interaction Alerts*Vitamin D (Cholecalciferol) 10 MCG (400 UNIT) Capsule weekly Oral Ondansetron 8 MG Tablet Disintegrating prn Oral Metoprolol Succinate ER 50 MG Tablet Extended Release 24 Hour Oral Folic Acid 1 MG Tablet 1 tablet Orally Once a day , stop date 5busPIRone HCl 10 MG Tablet 1 tablet Orally Twice a day Methotrexate Sodium 2.5 MG Tablet 4 Orally weekly predniSONE 5 MG Tablet TAKE 1 TABLET BY MOUTH DAILY Cephalexin 500 MG Capsule Oral Taking Eliquis 5 MG Tablet 1 tablet Orally Twice a day Taking Lipo-Flavonoid Plus 200-100 mg TABLET ORAL , Notes to Pharmacist: *Reorder from [facility] for eRx and Interaction Alerts*Taking HYDROcodone-Acetaminophen 5- 325 MG Tablet prn Oral Taking B 12 injection - once monthly - , Notes to Pharmacist: *Reorder from [facility] for eRx and Interaction Alerts*Taking Vitamin D (Cholecalciferol) 10 MCG (400 UNIT) Capsule weekly Oral Taking Ondansetron 8 MG Tablet Disintegrating prn Oral Taking Metoprolol Succinate ER 50 MG Tablet Extended Release 24 Hour Oral Taking Folic Acid 1 MG Tablet 1 tablet Orally Once a day , stop date 04/23/2024Taking busPIRone HCl 10 MG Tablet 1 tablet Orally Twice a day Taking Methotrexate Sodium 2.5 MG Tablet 4 Orally weekly Taking predniSONE 5 MG Tablet TAKE 1 TABLET BY MOUTH DAILY Taking Cephalexin 500 MG Capsule Oral * Allergies: P rochlorperazine: Allergy - Onset Date 10/23/2019SUMAtriptan: Allergy - Onset Date 10/23/2019Nalbuphine: Allergy - Onset Date 10/23/2019Promethazine: Allergy - Onset Date 10/23/2019Metoclopramide HCl: Allergy - Onset Date 10/23/2019no[Allergies Verified] Objective: * Vitals: B P:130/78mm Hg, HR:99/min, Oxygen sat %:98%, Wt:160lbs, Wt-k.56kg, Ht:62in, Ht-cm:157.48cm, BMI:29.26Index, Body Surface Area:1.78. * Examination: G eneral Examination: General appearance: a lert, well-nourished and in no acute distress. Head: n ormocephalic, atraumatic. Eyes: n ormal. Skin: n o rash. Lungs: r espiratory effort normal. N eurology: Speech: n ormal. P sychiatry: Affect / mood: a ppropriate. R heumatology: R IP mildly mildly swollen and tender. Assessment: * Assessment: 1. I nflammatory arthritis - M19.90 (Primary) 2 . A NA positive - R76.8? 3. O steoarthritis, unspecified osteoarthritis type, unspecified site - M19.90? 4. H igh risk medication use - Z79.899 on M [place] 10mg/wk, labs today, decrease prednisone to 5mg QOB, return in 3 months Plan: * Treatment: * Procedure Codes: * Follow Up: 3 Months * Billing Information: * Visit Code: 18184 Office Visit, Est Pt., Level 4. * Procedure Codes: Images * PatientLetter 04/20/2024 13: 51:02 * CTOR PAID MEDIA Sign off status: Completed true * Provider: Danie HALL MD Date: 0 04/19/2024 Generated for Aby dowd/Claribel/Christos on: 0 06/17/2024 09:59 AM CDT History and Physical Notes * HPI (History of Present Illness) Category Sub-Category Detail Notes Category Not es General Follow up on MTX 10mg/wk and prednisone 5mg/day, thumbs aching, R thumb a little swollen skin tear on R leg last week, went to urgent care, on antibiotics off nabumetone due to kidney problem, had a stroke in 04/2023, SEBLE 1:320 (homogeneous), cascade (-), RF/CCP (-), joint pain steroid responsive ROS: +occasional oral ulcers, no sicca symptoms, no rashes, no hair loss, no photosensitivity, no Raynaud's. plaquenil caused ?double vision. arava caused hair loss and dizziness A-fib, had a stroke on 04/2023, now on eliquis takes colcrys for possible gout. Examination Category Sub-Category Detail Notes Category Not es Rheumatology R IP mildly mildly swollen and tender Neurology Speech: normal Psychiatry Affect / mood: appropriate General Examination General appearance: alert, w ell-nourished and in no acute distress Head: normocephalic, atrau matic Eyes: normal Lungs: respiratory effort n ormal Skin: no rash
--- OUTSIDE RECORDS SUMMARY | 2024-06-17 10:00 | XMS_ITS ---
Author Organization [facility] Address [address] [place] [address] [place] [address] Care Team Providers Care Raw Shellfish Preparer Name Role Phone KEHINDE MERCEDES MD Primary Care Provider Shamar Garcia Unavailable [phone] ALLERGIES Allergen (clinical drug ingredient) Drug/Non Drug Allergy documented on EMR Reaction Allergy Type Onset Date Status nalbuphine Nalbuphine itching Drug Allergy Activ e promethazine Promethazine itching Drug Allergy A ctive sumatriptan Sumatriptan rash Drug Allergy Act elizabeth REASON FOR VISIT FOLLOW UP MEDICATIONS Medication SIG (Take, Route, Frequency, Duration) Notes Start Date End Date Status Ondansetron 8 MG DISSOLVE 1 TABLET IN MOUTH EVERY 12 HOURS NEEDED FOR NAUSEA AND VOMITING Oral for 15 R112,Unavaila ble Active Potassium Chloride Mag ER 20 MEQ TAKE 1 TABLET BY MOUTH ONCE DAILY NEEDED. TAKE WITH LASIX. Oral for 30 Active buPROPion HCl ER (XL) 150 MG TAKE 1 TABLET BY MOUTH IN THE MORNING Oral for 30 Active HYDROcodone-Acetaminophen 7.5-325 MG 1 tablet as needed Orally every 6 hrs for 30 days 03/28/2024 Active Vitamin D3 1.25 MG (82886 UT) TAKE 1 CAPSULE BY MOUTH ONCE WEEKLY Oral for 98 Active Furosemide 40 MG TAKE 1 TABLET BY MOUTH ONCE DAILY Oral for 30 Active Ipratropium-Albuterol 0.5-2.5 (3) MG/3ML USE 3 ML IN NEBULIZER 4 TIMES DAILY NEEDED FOR SHORTNESS OF BREATH Inhalation for 30 J449,Unavaila ble Active Ferrous Sulfate 325 (65 Fe) MG TAKE 1 TABLET BY MOUTH DAILY. Oral for 30 D509,Unavaila ble Active hydroCHLOROthiazide 25 MG TAKE 1 TABLET BY MOUTH DAILY Oral for 90 Active predniSONE 5 MG 1 tablet Orally Once a day for 30 day(s) 09/11/2023 Active Eliquis 5 MG 1 tablet Oral Twice a day Active Lisinopril 20 MG TAKE 1 TABLET BY MOUTH AT BEDTIME Oral for 90 Active Albuterol Sulfate (2.5 MG/3ML) 0.083% INHALE 1 VIAL VIA NEBULIZER EVERY 4-6 HOURS NEEDED FOR SHORTNESS OF BREATH OR WHEEZING Inhalation for 10 J449,Unavaila ble Active Nrwtvykhlv-EDQM-Ortqtnls 50-325-40 MG TAKE 1 TABLET BY MOUTH EVERY 4 HOURS NEEDED FOR MIGRAINE Oral for 1 E785,Unavaila ble Active Atorvastatin Calcium 10 MG TAKE 1 TABLET BY MOUTH DAILY Oral for 90 Active Cyanocobalamin 1000 MCG/ML ADMINISTER 1 ML UNDER THE SKIN MONTHLY Injection for 90 D519,Unavaila ble Active Metoprolol Succinate ER 50 MG 1 tablet Oral Once a day Active Premarin 0.625 MG 1 tablet Oral Once a day Active busPIRone HCl 10 MG 1 tablet Oral Twice a day Active Vitamin D (Ergocalciferol) 1.25 MG (33461 UT) 1 capsule Oral Once a day Active Albuterol Sulfate HFA 108 (90 Base) MCG/ACT INHALE 2 PUFFS BY MOUTH EVERY 4 HOURS NEEDED FOR SHORTNESS OF BREATH OR WHEEZING Inhalation for 16 J209,Unavaila ble Active Colchicine 0.6 MG 1 tablet Oral once a day Active Bevespi Aerosphere 9-4.8 MCG/ACT 2 puffs Inhalation Twice a day Active LORazepam 0.5 MG 1 tablet at bedtime as needed Oral Once a day Active Amitriptyline HCl 10 MG 1 tablet at bedtime Oral Once a day Active Meclizine HCl 25 MG TAKE 1 TABLET BY MOUTH EVERY 8 HOURS NEEDED FOR DIZZINESS Oral for 20 H8113,Unavail able Active Potassium Chloride ER 20 MEQ 1 tablet with food Orally Once a day for 30 day(s) Active SOCIAL HISTORY Tobacco Use: Social History Observation Description Date Details (start date - stop date) Never Smoker NA - NA Sex Assigned At : Social History Observation Description Sex Assigned At Unknown Tobacco Use/Smoking Question Answer Notes Are you a nonsmoker Encounters Encounter Location Date Provider Diagnosis [facility] [address] [place] [address] [place] [address] 04/27/2024 Shamar Stynowick Pain in joints of right hand M25.541 ; Rheumatoid arthritis, unspecified M06.9 ; Pain in joints of unspecified hand M25.549 ; Erosive (osteo)arthritis M15.4 and [facility] (current) use of opiate analgesic Z79.891 ASSESSMENTS Encounter Date Diagnosis Assessment Notes Treatment Notes Treatment Clinical Notes 04/27/2024 Pain in joints of right hand (ICD-10 - M25.541) 04/27/2024 Rheumatoid arthritis, unspecified (ICD-10 - M06.9) The [...] to fully comply with the above. The [place] and [place] PDMP were reviewed and were appropriate 04/27/2024 Pain in joints of unspecified hand (ICD-10 - M25.549) 04/27/2024 Erosive (osteo)arthritis (ICD-10 - M15.4) 04/27/2024 [facility] (current) use of opiate analgesic (ICD-10 - Z79.891) PLAN OF TREATMENT Medication Medication Name Sig Start Date Stop Date Notes HYDROcodone-Acetaminophen 7.5-325 MG 1 tablet as needed Orally every 6 hrs for 30 days 03/28/2024 Treatment Notes Assessment Notes Rheumatoid arthritis, unspecified [...] to fully comply with the above. The [place] and [place] PDMP were reviewed and were appropriate Next Appt Details Provider Name:Shamar sterling, 06/22/2024 10:00:00 AM, [address] [place], [address], Progress Notes * Examination Category Sub-Category Detail [...] and Follow-up: Follow-up Plan documen kiana:: Yes [facility] Quality 2020: [facility] Documented:: Compliant
== END 2024-06-17 09:44 | disposition home or self-care (01) ==
PROVIDERS: PCP Family Medicine; Visit Provider Internal Medicine Pulmonary Disease
DX: J44.9 Chronic obstructive pulmonary disease, unspecified (principal)
CPT/HCPCS: 71250

== ENCOUNTER 2024-06-23 09:52 | Outpatient (RCR) | payer MEDICARE, SELFPAY ==
[2024-06-23 10:22] VITALS: BMI 23.8
--- NOTE | 2024-07-07 09:02 | PCWOUND ---
WOCN NOTE Patient called and left a message to cancel appointment for today. Patient states she is having dizzy spells this morning, will call office back later today to reschedule appointment.
--- NOTE | 2024-07-14 10:12 | PCWOUND ---
WOCN NOTE Patient did not show up for scheduled appointment, no call was made to cancel or reschedule.
--- NOTE | 2024-07-15 10:47 | PCWOUND ---
WOCN NOTE Patient called today stating she thought she had an appointment this week, but unsure what day and time. Explained to patient that her appointment was yesterday 07/14/24 and 929. Patient asked if she should reschedule the appointment, explained to patient that it was up to her if she felt that wound care was needed. Patient stated no and hung up. No future appointments, patient is discharged from wound care services.
== END 2024-07-15 10:54 | disposition home or self-care (01) ==
LOC: ANHWOC 09:52
PROVIDERS: PCP Family Medicine; Visit Provider Family Medicine
DX: S81.802A Unspecified open wound, left lower leg, initial encounter (principal); Z48.00 Encounter for change or removal of nonsurgical wound dressing
CPT/HCPCS: 99213; G0463

== ENCOUNTER 2024-08-05 14:53 | Outpatient (CLI) | payer MEDICARE, SELFPAY ==
--- OUTSIDE RECORDS SUMMARY | 2024-08-05 14:57 | XMS_ITS ---
Author Organization [facility] Address [address] [place] [address] [place] [address] Care Team Providers Care Straight Cutter Name Role Phone MAGO SCOTT, KEHINDE Primary Care Provider Judie Hernandez Shamar Unavailable [phone] ALLERGIES Allergen (clinical drug ingredient) Drug/Non Drug Allergy documented on EMR Reaction Allergy Type Onset Date Status nalbuphine Nalbuphine itching Drug Allergy Activ e promethazine Promethazine itching Drug Allergy A ctive sumatriptan Sumatriptan rash Drug Allergy Act elizabeth REASON FOR VISIT Follow Up, Left Hand Pain MEDICATIONS Medication SIG (Take, Route, Frequency, Duration) Notes Start Date End Date Status HYDROcodone-Acetaminophen 7.5-325 MG 1 tablet as needed Orally every 6 hrs for 30 days MAY FILL 07/23/24 07/22/2024 Active Pantoprazole Sodium 40 MG TAKE 1 TABLET BY MOUTH ONCE DAILY IN THE MORNING Oral for 90 Active Methotrexate Sodium 2.5 MG as directed Oral Active Vitamin D3 1.25 MG (81452 UT) TAKE 1 CAPSULE BY MOUTH ONCE WEEKLY Oral for 98 Active Jardiance 10 MG TAKE 1 TABLET BY MOUTH ONCE DAILY Oral for 30 Active buPROPion HCl ER (XL) 150 MG TAKE 1 TABLET BY MOUTH IN THE MORNING Oral for 30 Active Potassium Chloride Mag ER 20 MEQ TAKE 1 TABLET BY MOUTH ONCE DAILY NEEDED. TAKE WITH LASIX. Oral for 30 Active Ipratropium-Albuterol 0.5-2.5 (3) MG/3ML USE 3 ML IN NEBULIZER 4 TIMES DAILY NEEDED FOR SHORTNESS OF BREATH Inhalation for 30 Active Furosemide 40 MG TAKE 1 TABLET BY MOUTH ONCE DAILY Oral for 30 Active Ondansetron 8 MG DISSOLVE 1 TABLET IN MOUTH EVERY 12 HOURS NEEDED FOR NAUSEA AND VOMITING Oral for 15 Active hydroCHLOROthiazide 25 MG TAKE 1 TABLET BY MOUTH DAILY Oral for 90 Active Ferrous Sulfate 325 (65 Fe) MG TAKE 1 TABLET BY MOUTH DAILY. Oral for 30 Active Albuterol Sulfate (2.5 MG/3ML) 0.083% INHALE 1 VIAL VIA NEBULIZER EVERY 4-6 HOURS NEEDED FOR SHORTNESS OF BREATH OR WHEEZING Inhalation for 10 Active predniSONE 5 MG 1 tablet Orally Once a day for 30 day(s) 09/11/2023 Active Xtvjjiscdb-FQBM-Iakcmrtw 50-325-40 MG TAKE 1 TABLET BY MOUTH EVERY 4 HOURS NEEDED FOR MIGRAINE Oral for 1 Active Cyanocobalamin 1000 MCG/ML ADMINISTER 1 ML UNDER THE SKIN MONTHLY Injection for 90 Active Lisinopril 20 MG TAKE 1 TABLET BY MOUTH AT BEDTIME Oral for 90 Active Metoprolol Succinate ER 50 MG 1 tablet Oral Once a day Active Eliquis 5 MG 1 tablet Oral Twice a day Active Atorvastatin Calcium 10 MG TAKE 1 TABLET BY MOUTH DAILY Oral for 90 Active Vitamin D (Ergocalciferol) 1.25 MG (92587 UT) 1 capsule Oral Once a day Active busPIRone HCl 10 MG 1 tablet Oral Twice a day Active Amitriptyline HCl 10 MG 1 tablet at bedtime Oral Once a day Active Premarin 0.625 MG 1 tablet Oral Once a day Active Bevespi Aerosphere 9-4.8 MCG/ACT 2 puffs Inhalation Twice a day Active Potassium Chloride ER 20 MEQ 1 tablet with food Orally Once a day for 30 day(s) Active Meclizine HCl 25 MG TAKE 1 TABLET BY MOUTH EVERY 8 HOURS NEEDED FOR DIZZINESS Oral for 20 Active LORazepam 0.5 MG 1 tablet at bedtime as needed Oral Once a day Active Albuterol Sulfate HFA 108 (90 Base) MCG/ACT INHALE 2 PUFFS BY MOUTH EVERY 4 HOURS NEEDED FOR SHORTNESS OF BREATH OR WHEEZING Inhalation for 16 Active Colchicine 0.6 MG 1 tablet Oral once a day Active SOCIAL HISTORY Tobacco Use: Social History Observation Description Date Details (start date - stop date) Never Smoker NA - NA Sex Assigned At : Social History Observation Description Sex Assigned At Unknown Tobacco Use/Smoking Question Answer Notes Are you a nonsmoker VITAL SIGNS Blood pressure systolic 138 mm Hg 07/23/19 25 Blood pressure diastolic 75 mm Hg 025 Heart Rate 86 /min 07/22/2024 Respiratory Rate 18 /min 07/22/2024 Height 5 ft 1 in in 07/22/2024 Weight 153 lbs 07/22/2024 BMI 28.91 kg/m2 07/22/2024 Encounters Encounter Location Date Provider Diagnosis [facility] [address] [facility] [place] [address] 07/22/2024 Shamar Stynowick Pain in joints of right hand M25.541 ; Rheumatoid arthritis, unspecified M06.9 ; Pain in joints of unspecified hand M25.549 ; Erosive (osteo)arthritis M15.4 and 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 07/22/2024 Other The above-named patient was evaluated in [...] Orally every 6 hrs for 30 days 07/22/2024 MAY FILL 07/23/24 Treatment Notes Assessment Notes Rheumatoid arthritis, unspecified [...] to fully comply with the above. The [place] and [place] PDMP were reviewed and were appropriate truck terminal manager (current) use of o piate analgesic The [...] occurred. This note was dictated by ARIS Tna. Total Time Spent with Patient and Medical Decision Makin minutes Next Appt Details Follow Up: 4 Weeks OPV, Reas on: Provider Name:Shamar sterling, 08/22/2024 09:15:00 AM, [address] [facility] [address], [place], [address], Progress Notes * Examination Category Sub-Category Detail [...]
--- OUTSIDE RECORDS SUMMARY | 2024-08-05 14:57 | XMS_ITS | Encounter Summary ---
Author Organization [facility] Address [address] [place] [address] Phone Care Team Providers Care Arc Furnace Operator Name Role Phone Fernando Rucker MD Primary Care Provider Sylvester Graves MD Unavailable [phone] Reason for Visit * Reason Comments Medication Refill Encounter Details Date Type Department Care Team (Late st Contact Info) Description 05/09/2024 Refill [facility] [address] [place] [address] Sylvester Graves MD [address] [place] [address] Medication Refill Social History Tobacco Use Types Packs/Day Years Used Date Smoking Tobacco: Never Smokeless Tobacco: Never Alcohol Use Standard Drinks/Week Comments Yes 0 (1 standard drink = 0.6 oz pur e alcohol) 1 glass of wine a month [facility] Utilities Answer Date Recorded In the past 12 months has [employer], gas, oil, or water company threatened [...] week 05/19/2023 How often do you attend [facility] or congregation services? Never 05/19/2023 Do you belong to any clubs o r organizations such as methodist groups, unions, fraternal or athletic groups, or [...] and heating? Not hard at all 05/19/2023 [facility] of Occupat ional Health - Occupational Stress [...] place to sleep or slept in a fpc (including now)? No 05/19/2023 Housing Stability Vital Sign Answer Gm e Recorded In the last 12 months, was t here a time when you were not able to pay the mortgage or rent on time? No 08/28/2023 In the past 12 months, how m any times have you moved where you were living? 1 08/28/2023 At any time in the past 12 m [facility], were you homeless or living in a fpc (including now)? No 08/28/2023 Sexually Active Control [...] Care Team (Late st Contact Info) Description 12/19/2024 10:30 AM CDT Office Visit [facility] [address] [place] [address] Angela Ferrara APRN, ADMINISTRATIVE UNDERWRITER [address] [place] [address] documented as of this encounter Visit Diagnoses Diagnosis Intractable migraine without aura and without status migrainosus Migraine without aura, with intractable migraine, so stated, without mention of status migrainosus documented in this encounter Additional Health Concerns Assessment Noted Time PHQ-9 Depression Total Score: 0 06/25/19 18 12:00 PM CDT documented as of this encounter Care Teams Arc Furnace Operator Relationship Specialty Start Date End Date Fernando Rucker MD [address] [address] PCP - General Family Medicine 05/11/15 Sylvester Graves MD [address] [place] [address] Consulting Physician Neurology 06/17/23 documented as of this encounter
--- OUTSIDE RECORDS SUMMARY | 2024-08-05 14:57 | XMS_ITS | Clinical Summary ---
Author Organization [facility] Address [address] [place] [address] Phone Care Team Providers Care Activity Assistant Name Role Phone Fernando Rucker MD Primary Care Provider Sylvester Graves MD Unavailable [phone] Allergies Active Allergy Reactions Criticality Noted Date [...] prep. 255 g 0 10/02/19 16 Active albuterol 108 (90 Base) MCG/ACT Aerosol Solution [...] 5 mg by mouth daily. rx # [id number] Active buPROPion (WELLBUTRIN) 150 MG XL tablet 10/12/19 24 Active buPROPion (WELLBUTRIN) 150 MG XL tablet Take 150 mg by mouth every morning. Active CHOLECALCIFEROL PO Take by mouth. Activ e folic acid (FOLVITE) 1 MG Tablet Take 1 mg by mouth daily. Active cephALEXin (KEFLEX) 500 MG Capsule Take 500 mg by mouth 4 times daily. Active butalbital-aceta minophen-caffein e (FIORICET, ESGIC) 50-325-40 MG TabletIndication s:Intractable migraine without aura and without status migrainosus Take 1 Tablet by mouth every 6 hours as needed for Migraine. 10 Tablet 07/30/19 25 Active LORazepam (ATIVAN) 0.5 MG TabletIndication s:Vertigo Take 1 Tablet by mouth every 6 hours as needed for Other (vertigo). 4 Tablet 07/30/19 25 Active butalbital-aceta minophen-caffein e (FIORICET, ESGIC) 50-325-40 MG TabletIndication s:Intractable migraine without aura and without status migrainosus Take 1 Tablet by mouth every 6 hours as needed for Migraine. 10 Tablet 05/10/19 25 025 Discontin ued(Reord er) butalbital-aceta minophen-caffein e (FIORICET, ESGIC) 50-325-40 MG TabletIndication s:Intractable migraine without aura and without status migrainosus Take 1 Tablet by mouth every 6 hours as needed for Migraine. 10 Tablet 07/09/19 25 025 Discontin ued(Reord er) Active Problems Problem Noted Date Diagnosed Date Vascular dementia with depressed mood 07/29/2024 Acute cystitis without hematuria 08/28/2023 Gait disturbance 08/28/2023 Acute metabolic encephalopathy 08/28/2023 Frequent falls 08/27/2023 TIA (transient ischemic attack) 05/26/2023 CVA (cerebral vascular accident) 05/19/2023 Paroxysmal atrial fibrillation 05/19/2023 Hypertension 05/19/2023 Migraines 05/19/2023 COPD (chronic obstructive pulmonary disease) 07/2023 Gout 05/19/2023 Anxiety and depression 05/19/2023 Metatarsalgia, left foot 11/26/2016 Pain of left foot 11/26/2016 [place] or callus 11/26/2016 Fracture, stress, metatarsal 09/26/2015 Resolved Problems Problem Noted Date Diagnosed Date Resolved Date Acute kidney injury 05/19/2023 05/21/19 Hypokalemia 05/19/2023 05/21/2023 Leukocytosis 05/19/2023 05/21/2023 Encounters Date Type Department Care Team Description 07/29/2024 2:15 PM CDT Office Visit [facility] [address] [place] [address] Sylvester Graves MD Vascular dementia with depressed mood (HCC) (Primary Dx); COPD with acute exacerbation (HCC); Paroxysmal atrial fibrillation (HCC); Intractable migraine without aura and without status migrainosus; Vertigo Discharge Disposition: Discharged to home or Selfcare 07/29/2024 Travel 07/25/2024 Nurse Triage [facility] [address] [place] [address] Sylvester Graves MD Dizziness 07/08/2024 Refill [facility] [address] [place] [address] Sylvester Graves MD Medication Refill 07/01/2024 4:33 PM CDT - 07/01/2024 11:59 PM CDT Hospital Encounter [facility] Mammography [address] [place] [address] Fernando Rucker MD Discharge Disposition: Discharged to home or Selfcare 07/01/2024 Travel 06/06/2024 Transcribe Orders [facility] Central Scheduling [address] [place] [address] Fernando Rucker MD Encounter for screening mammogram for malignant neoplasm of breast (Primary Dx) 05/09/2024 Refill [facility]rology [facility] [address] [place] [address] Sylvester Graves MD Medication Refill 05/09/2024 Refill [facility] [place] [facility] [address] [place] [address] Sylvester Graves MD from Last 3 Months Immunizations Immunization Administration [...] alcohol) 1 glass of wine a month [facility] Utilities Answer Date Recorded In the past 12 months has [employer], gas, oil, or water company threatened [...] often do you attend chur ch or jew services? Never 05/19/2023 Do you belong to any clubs o r organizations such as voodoo groups, unions, fraternal or athletic groups, or [...] and heating? Not hard at all 05/19/2023 [facility] of Occupat ional Health - Occupational Stress [...] place to sleep or slept in a [place] health care facility (including now)? No 05/19/2023 Housing Stability Vital Sign Answer Gm e Recorded In the last 12 months, was t here a time when you were not able to pay the mortgage or rent on time? No 08/28/2023 In the past 12 months, how m any times have you moved where you were living? 1 08/28/2023 At any time in the past 12 m [facility], were you homeless or living in a [place] health care facility (including now)? No 08/28/2023 Sexually Active Control [...] Sign Reading Time Taken Comments Blood Pressure 136/80 07/29/2024 2:05 PM CDT Pulse 74 07/29/2024 2:05 PM CDT Temperature 36.6 C (97.8 F) 07/29/2024 2:05 PM CDT Respiratory Rate 20 07/29/2024 2:05 PM CDT Oxygen Saturation 98% 07/29/2024 2:05 PM CDT Inhaled Oxygen Concentration - - Weight 75 kg (165 lb 6.4 oz) 07/29/2024 2:05 PM CDT Height 157.5 cm (5' 2 ) 07/29/2024 2:05 PM CDT Body Mass Index 30.25 07/29/2024 2:05 PM CDT Plan of Treatment Upcoming Encounters Date Type Department Care Team (Late st Contact Info) Description 12/19/2024 10:30 AM CDT Office Visit [facility] [place] [address] [place] [address] Angela Ferrara, BUSINESS INTELLIGENCE ENGINEER, AIR CONDITIONING SERVICE TECHNICIAN [address] [place] [address] Health Maintenance Due Date Last Done Comments Pneumococcal Immunization (50+ years) (1 of 2 - PCV) 1973 Cologuard 2004 Immunochemical Fecal Occult Blood 2004 Zoster Immunization (1 of 2) 2004 Respiratory Syncytial Virus (RSV) Immunization (Adult) (1 - Risk 60-74 years 1-dose series) 2014 DEXA Bone Density 10/15/2017 10/16/2015 SARS-COV-2 Immunization ( - season) 2023 05/18/2020, 04/27/2020 Influenza Immunization (Season Ended) 2024 12/31/2020, 12/29/2019, 12/14/2018, Additional history exists Mammogram 07/01/2025 07/01/2024, 06/2022, 01/15/2021, Additional history exists Colonoscopy 03/21/2026 03/21/2016 Colorectal Cancer Screening 03/21/2026 Td Immunization Every 10 Years (Adults With 1 Tdap) 08/23/2033 08/24/2023 03/21/2016 Hepatitis C Virus (HCV) Screening Completed 01/09/2018 DTaP/Tdap/Td Immunization Discontinued 08/24/2023 TdaP Immunization Discontinued 08/24/2023 Hepatitis B Immunization Aged Out No longer eligible based on patient's age to complete this topic Human Papillomavirus (HPV) Immunization Aged Out No longer eligible based on patient's age to complete this topic Meningococcal Immunization (ACWY) Aged Out No longer eligible based on patient's age to complete this topic Rotavirus Immunization Aged Out No lo nger eligible based on patient's age to complete this topic Procedures Procedure Name Priority Date/Time Associated Diagnosis Comments [facility] SCREENING BILATERAL DIGITAL W CAD W JACKSON Routine 07/01/2024 5:26 PM CDT Encounter for screening mammogram for malignant neoplasm of breast HEPATITIS C ANTIBODY Routine 01/09/2018 7:36 AM CDT Primary osteoarthritis of right hand Primary osteoarthritis, left hand Hyperuricemia Hypermobility syndrome [facility] BONE DENSITOMETRY AXIAL SKELETON Routine 10/16/2015 1:46 PM CDT Fracture, stress, metatarsal, left, initial encounter from Last 3 Months or Most Recently Relevant to Health Maintenance Results * [facility] SCREENING BILATERAL DIGITAL W CAD W JACKSON (07/01/2024 5:26 PM CDT) Anatomical Region Laterality Modality breast Bilateral Mammography 07/01/2024 5:17 PM CDT Narrative 07/05/2024 8:35 AM CDT - [facility] SCREENING BILATERAL DIGITAL W CAD W JACKSON BILATERAL DIGITAL SCREENING MAMMOGRAM 3D/2D WITH CAD WITH MEDIOLATERAL OBLIQUE CRANIOCAUDAL: 07/01/2024 The study was acquired using digital technology and interpreted from soft copy. Current study was also evaluated with ICAD version 7.2. 2D digital mammographic views, as well as 3D digital tomosynthesis were performed in the CC and MLO projections. CLINICAL: Routine screening. Patient has no complaints. Patient is sensitive to positioning and compression. Additional images were taken due to motion. Personal history of cervical cancer. No family history of breast cancer. COMPARISONS: Comparison is made to exams dated: 03/19/2022, 01/15/2021, and 12/26/2019 [facility]. BREAST TISSUE:The breasts are heterogeneously dense, which may obscure small masses. FINDINGS: There are benign vascular calcifications in both breasts. No significant masses, calcifications, or other findings are seen in either breast. There has been no significant interval change. IMPRESSION: BENIGN There is no mammographic evidence of malignancy. A 1 year screening mammogram is recommended. A letter will be sent to the patient with these results. The patient will be entered into a reminder system with a target due date of 1 year for her next screening exam. Electronically signed by: Lee andres/paulette:07/04/2024 22:25:53 Bookbinder Chief(s): RT Martín(R)(M), [facility] letter sent: Normal Exam Reading location: [facility] Mammogram BI-RADS: Category 2: Benign Procedure Note Lee Cifuentes MD - 07/05/2024 - [facility] SCREENING BILATERAL DIGITAL W CAD W JACKSON BILATERAL DIGITAL SCREENING MAMMOGRAM 3D/2D WITH CAD WITH MEDIOLATERAL OBLIQUE CRANIOCAUDAL: 07/01/2024 The study was acquired using digital technology and interpreted from soft copy. Current study was also evaluated with ICAD version 7.2. 2D digital mammographic views, as well as 3D digital tomosynthesis were performed in the CC and MLO projections. CLINICAL: Routine screening. Patient has no complaints. Patient is sensitive to positioning and compression. Additional images were taken due to motion. Personal history of cervical cancer. No family history of breast cancer. COMPARISONS: Comparison is made to exams dated: 03/19/2022, 01/15/2021, and 12/26/2019 [facility]. BREAST TISSUE:The breasts are heterogeneously dense, which may obscure small masses. FINDINGS: There are benign vascular calcifications in both breasts. No significant masses, calcifications, or other findings are seen in either breast. There has been no significant interval change. IMPRESSION: BENIGN There is no mammographic evidence of malignancy. A 1 year screening mammogram is recommended. A letter will be sent to the patient with these results. The patient will be entered into a reminder system with a target due date of 1 year for her next screening exam. Electronically signed by: Lee andres/paulette:07/04/2024 22:25:53 Bookbinder Chief(s): Tiffany Quintana RT(R)(M), [facility] letter sent: Normal Exam Reading location: [facility] Mammogram BI-RADS: Category 2: Benign us Fernando Rucker MD IMG MAMMO ORDERABLES Final Result * HEPATITIS C ANTIBODY (01/09/2018 7:36 AM CDT) hepatitis C antibody 0.11 <1 S/CO 01/09/2018 3:02 PM CDT [facility] Comment: Signal/Cutoff ratio < 0.79 is Nondetected Signal/Cutoff ratio 0.80-0.99 is Grayzone Signal/Cutoff ratio > 0.99 is Detected Supplemental assays are recommended if signal/cutoff ratio is >/=1.00. Signal/cutoff ratio result >/= 5.00 is 97% predictive of positivity for recombinant immunoblot assay (RIBA) and will be reported to the [place] Department of Public Health as required. Blood specimen (specimen) Venipuncture / Unknown 01/09/2018 7:36 AM CDT 01/09/2018 8:12 AM CDT us Canelo Mckeon MD CHEMISTRY ORDERABLES Final Resu lt [facility] [address] [place] [address], [place] * [facility] BONE DENSITOMETRY AXIAL SKELETON (10/16/2015 1:46 PM [...] calcium, and hormone replacement therapy. COMPARISON(S): None CLOTH LAYER/MODEL: [employer] (S/N [id number]) FINDINGS: AP lumbar spine L1-L4 Total BMD is 1.236 g/xo8R-iuppy is 0.3 Left Hip Total BMD is 0.767 g/dy5G-sohgp is -1.9 Neck BMD is 0.785 g/cv3H-tcnbc is -1.8 Fracture risk assessment (FRAX): 10 [...] 10/16/2015 3:19 PM: Latesha Rodriguez M.D. Radiologist : DOMINIK Procedure Note Tj Rodgers MD - [...] calcium, and hormone replacement therapy. COMPARISON(S): None CLOTH LAYER/MODEL: [employer] (S/N [id number]) FINDINGS: AP lumbar spine L1-L4 Total BMD is 1.236 g/wh1T-hgepx is 0.3 Left Hip Total BMD is 0.767 g/qh6W-xekqv is -1.9 Neck BMD is 0.785 g/us5H-zhwgz is -1.8 Fracture risk assessment (FRAX): 10 [...] 10/16/2015 3:19 PM: Latesha Rodriguez M.D. Radiologist : DOMINIK IMPRESSION: Low bone mass. The patient's [...] Relevant to Health Maintenance Insurance MEDICARE [facility] Advance Directives * Full Code (Latest [...] 4:56 PM 07/02/2023 2:35 PM Care Teams Activity Assistant Relationship Specialty Start Date End Date Fernando Rucker MD [address] [address] PCP - General Family Medicine 05/11/15 Sylvester Graves MD [address] [place] [address] Consulting Physician Neurology 06/17/23
--- OUTSIDE RECORDS SUMMARY | 2024-08-05 14:57 | XMS_ITS ---
Author Organization [facility] yu Address [address] [facility] [address] [place] [address] Care Team Providers Care Soil Engineer Name Role Phone Fernando Rucker MD Primary Care Provider Judie HallOpal Unavailable [phone] Allergies Allergen (clinical drug ingredient) Drug/Non Drug Allergy documented on EMR Reaction Allergy Type Onset Date Status metoclopramide Metoclopramide HCl Unknown Drug Allergy 11/2019 Active prochlorperazine Prochlorperazine Unknown Drug Allergy 11/2019 Active sumatriptan SUMAtriptan Unknown Drug Allergy 10/23/2019 Ac tive nalbuphine Nalbuphine Unknown Drug Allergy 10/23/2019 Acti ve promethazine Promethazine Unknown Drug Allergy 10/23/2019 Active Results Component Value Reference Range Notes CBC W/DIFF Reviewed date:07/22/2024 08:16:58 AM Interpretation:Lab Result Generalized Performing Lab:[facility], [address] [place] [address], [place], [address] Notes/Report: WBC 9.7 3.5-10.5 10'3/uL RBC 3.54 (Based on docume nted legal sex) 3.80-5.20 10'6/uL HGB 9.4 (Based on docume nted legal sex) 11.6-15.4 g/dL HCT 31.1 (Based on docume nted legal sex) 34.0-45.0 % MCV 87.9 80.0-99.0 fL MCH 26.6 27.0-34.0 pg MCHC 30.2 32.0-35.5 g/dL RDW 16.9 11.0-15.0 % PLT 349 150-400 10'3/uL MPV 10.6 8.8-12.1 fL Neutrophils 61.7 34.0-73.0 % Lymphocytes 24.7 15.0-50.0 % Monocytes 10.3 1.0-15.0 % Eosinophils 2.5 0.0-8.0 % Basophils 0.5 0.0-2.0 % Immature Granulocytes 0.3 No defined reference range % Immature Granulocytes (IG) represents automated enumeration of Metamyelocytes, Myelocytes and Promyelocytes when IG is < 5%. Blasts are not included in IG and reported separately if present. Absolute Neutrophils 6.0 1.5-8.0 10'3/uL Absolute Lymphocytes 2.4 1.0-4.0 10'3/uL Absolute Monocytes 1.0 0.2-1.0 10'3/uL Absolute Eosinophils 0.2 0.0-0.6 10'3/uL Absolute Basophils 0.1 0.0-0.3 10'3/uL Absolute Immature Granulocytes 0.0 0.00-0.10 10'3/uL Reference ranges for nonbinary/intersex or unspecified gender patients have not been established. Please refer to the following table for ranges established for cisgender patients and evaluate in the clinical context of the individual patient: [email or web address].nm.org/ [email or web address] CMP(COMPREHENSIVE METABOLIC PANEL) Reviewed date:07/22/2024 08:16:58 AM Interpretation:Lab Result Generalized Performing Lab:[facility], [address] [place] [address], [id number] Notes/Report: Sodium 144 133-146 mmol/L Potassium 3.6 3.5-5.1 mmol/L Chloride 105 98-107 mmol/L Carbon Dioxide 28 21-31 mmol/L Anion Gap 11 4-13 mmol/L Blood Urea Nitrogen 19 7-25 mg/dL Creatinine 1.08 0.60-1.30 mg/dL eGFRcr (CKD-EPI 2020) 55 >=60 mL/min/1.73 m2 Calcium 9.3 8.3-10.5 mg/dL Glucose 88 70-100 mg/dL Protein, Total 6.4 6.4-8.3 g/dL Albumin 4.0 3.5-5.0 g/dL ALT 15 9-43 units/L Alkaline Phosphatase 70 34-104 units/L AST 18 13-39 units/L Bilirubin, Total 0.7 0.2-1.2 mg/dL REASON FOR VISIT 3 month f/u, Hand pain, inflammatory arthritis Medications Medication SIG (Take, Route, Frequency, Duration) Notes Start Date End Date Status Cephalexin 500 MG Oral for 10 Days Active Potassium Chloride A ctive predniSONE 5 MG 1 Orally daily for 30 days As needed 10/19/2024 Active Methotrexate Sodium 2.5 MG 5 tablets Orally weekly for 90 days 10/27/2023 Active Vitamin D (Cholecalciferol) 10 MCG (400 UNIT) weekly Oral Active Ondansetron 8 MG prn Oral Act elizabeth B 12 injection - once monthly - *Reorder from [employer] for eRx and Interaction Alerts* Active Metoprolol Succinate ER 50 MG Oral for 90 Days Active busPIRone HCl 10 MG 1 tablet Orally Twice a day Active Eliquis 5 MG 1 tablet Orally Twice a day for 30 day(s) Active Lipo-Flavonoid Plus 200-100 mg ORAL *Reorder from [employer] for eRx and Interaction Alerts* Active HYDROcodone-Acetamin ophen 5-325 MG prn Oral Active Problems Problem Type SNOMED Code ICD Code Onset Dates Problem Status W/U Status Risk Notes Problem 568811984 Chronic anemia (D64.9) Active confirmed Vital Signs Temperature 97.2 degrees Fahrenheit 07/22/19 25 Blood pressure systolic 112 mm Hg 07/22/19 25 Blood pressure diastolic 64 mm Hg 025 Heart Rate 81 /min 07/21/2024 Height 62 in 07/21/2024 Weight 165.8 lbs 07/21/2024 BMI 30.32 kg/m2 07/21/2024 Oximetry 95 % 07/21/2024 Height-cm 157.48 cm 07/21/2024 Weight-kg 75.21 kg 07/21/2024 Encounters Encounter Location Date Provider Diagnosis [facility] [address] [facility] [address] [place] [address] 07/21/2024 Opal Hall Inflammatory arthrit is M19.90 ; SEBLE positive R76.8 ; Osteoarthritis, unspecified osteoarthritis type, unspecified site M19.90 ; High risk medication use Z79.899 and Chronic anemia D64.9 Assessments Encounter Date Diagnosis (ICD Code) Assessment Notes Treatment Notes Treatment Clinical Notes Section Notes 07/21/2024 Inflammatory arthritis (ICD-10 - M19.90) mildly symptomatic, change prednisone to prn, continue MTX, labs today, return in 3 months 07/21/2024 SEBLE positive (ICD-10 - R76.8) mildly symptomatic, change prednisone to prn, continue MTX, labs today, return in 3 months 07/21/2024 Osteoarthritis, unspecified osteoarthritis type, unspecified site (ICD-10 - M19.90) mildly symptomatic, change prednisone to prn, continue MTX, labs today, return in 3 months 07/21/2024 High risk medication use (ICD-10 - Z79.899) mildly symptomatic, change prednisone to prn, continue MTX, labs today, return in 3 months 07/21/2024 Chronic anemia (ICD-10 - D64.9) mildly symptomatic, change prednisone to prn, continue MTX, labs today, return in 3 months Plan Of Treatment Medication Medication Name Sig Start Date Stop Date Notes predniSONE 5 MG 1 Orally daily for 30 days 08/2024 Next Appt Details Follow Up: 3 Months, Reason: Provider Name:Opal Hall, 10/21 10:45:00 AM, [address], [address], Progress Notes * Avila MORRISfidencio SouzaDOB:[birth year] (69 yo F)Acc No.[id number]:07/21/2024 Progress Notes Patient: Monse TRUJILLO Provider: Danie HALL MD :1955 A ge:69 Y S ex:Female Date:07/21/2024 Address:[address] [place], [place] [id number] Pcp:Fernando Rucker MD Subjective: * Chief Complaints: * 3 month f/uHand painInflammatory arthritis * HPI: G eneral Follow up: on MTX 12.5mg/wk, R thumb and R hand ache, on prednisone 5mg/day, R thumb a little swollen off nabumetone due to kidney problem, had a stroke in 04/2023, GFR 62, LFTs normal, Hb 10.6 12/2020, SEBLE 1:320 (homogeneous), cascade (-), RF/CCP (-), joint pain steroid responsive ROS: +occasional oral ulcers, no sicca symptoms, no rashes, no hair loss, no photosensitivity, no Raynaud's. plaquenil caused ?double vision. arava caused hair loss and dizziness A-fib, had a stroke on 04/2023, on eliquis takes colcrys for possible gout. * ROS: G eneral / Constitutional: Patient denies f rashawn, chills. P atient complains of?fatigue. M usculoskeletal: Patient complains of s ee HPI. S kin: Patient denies r domenico. * Medical History: * Surgical History: B reast biopsy; [id number] tunnel release; [id number]; 2019-10-23 * Hospitalization/Major Diagno stic Procedure: * [...] ORAL , Notes to Pharmacist: *Reorder from [facility] for eRx and Interaction Alerts*HYDROcodone-Acetaminophen 5-325 MG Tablet prn Oral B 12 injection - once monthly - , Notes to Pharmacist: *Reorder from [facility] for eRx and Interaction Alerts*Vitamin D (Cholecalciferol) 10 MCG (400 UNIT) Capsule weekly Oral Ondansetron 8 MG Tablet Disintegrating prn Oral Metoprolol Succinate ER 50 MG Tablet Extended Release 24 Hour Oral busPIRone HCl 10 MG Tablet 1 tablet Orally Twice a day Cephalexin 500 MG Capsule Oral predniSONE 5 MG Tablet 1 Orally daily , stop date 08/09/2024Methotrexate Sodium 2.5 MG Tablet 5 tablets Orally weekly Potassium Chloride Taking Eliquis 5 MG Tablet 1 tablet Orally Twice a day Taking Lipo- Flavonoid Plus 200-100 mg TABLET ORAL , Notes to Pharmacist: *Reorder from [facility] for eRx and Interaction Alerts*Taking HYDROcodone-Acetaminophen 5-325 MG Tablet prn Oral Taking B 12 injection - once monthly - , Notes to Pharmacist: *Reorder from [facility] for eRx and Interaction Alerts*Taking Vitamin D (Cholecalciferol) 10 MCG (400 UNIT) Capsule weekly Oral Taking Ondansetron 8 MG Tablet Disintegrating prn Oral Taking Metoprolol Succinate ER 50 MG Tablet Extended Release 24 Hour Oral Taking busPIRone HCl 10 MG Tablet 1 tablet Orally Twice a day Taking Cephalexin 500 MG Capsule Oral Taking predniSONE 5 MG Tablet 1 Orally daily , stop date 08/09/2024Taking Methotrexate Sodium 2.5 MG Tablet 5 tablets Orally weekly Taking Potassium Chloride DiscontinuedpredniSONE 5 MG Tablet 3 tablets once a day for 7 days, 2 tablets once a day for 7 days, 1 tablet once a day for 7 days Orally , stop date 07/21/2024Medication List reviewed and reconciled with the patientDiscontinued predniSONE 5 MG Tablet 3 tablets once a day for 7 days, 2 tablets once a day for 7 days, 1 tablet once a day for 7 days Orally , stop date 07/21/2024Medication List reviewed and reconciled with the patient * Allergies: P rochlorperazine: Allergy - Onset Date 10/23/2019SUMAtriptan: Allergy - Onset Date 10/23/2019Nalbuphine: Allergy - Onset Date 10/23/2019Promethazine: Allergy - Onset Date 10/23/2019Metoclopramide HCl: Allergy - Onset Date 10/23/2019no[Allergies Verified] Objective: * Vitals: B P:112/64mm Hg, HR:81/min, Temp:97.2F, Oxygen sat %:95%, Wt:165.8lbs, Wt- k.21kg, Ht:62in, Ht-cm:157.48cm, BMI:30.32Index, Body Surface Area:1.81. * Examination: G eneral Examination: General appearance: a lert, well-nourished and in no acute distress. Head: n ormocephalic, atraumatic. Eyes: n ormal. Skin: n o rash. Lungs: r espiratory effort normal. N eurology: Speech: n ormal. P sychiatry: Affect / mood: a ppropriate. R heumatology: R IP mildly mildly swollen and tender, R hand PIPs and R 1st MCP tender. Assessment: * Assessment: 1. I nflammatory arthritis - M19.90 (Primary) 2 . A NA positive - R76.8? 3. O steoarthritis, unspecified osteoarthritis type, unspecified site - M19.90? 4. H igh risk medication use - Z79.899 5 . C hronic anemia - D64.9 mildly symptomatic, change p rednisone to prn, continue MTX, labs today, return in 3 months Plan: * Treatment: * Procedure Codes: * Follow Up: 3 Months * Billing Information: * Visit Code: 15551 Office Visit, Est Pt., Level 4. * Procedure Codes: Images * PatientLetter 07/22/2024 08: 16:58 * Sign off status: Completed true * Provider: Danie HALL MD Date: 0 07/21/2024 Generated for Aby dowd/Claribel/eTransmitting on: 0 08/05/2024 02:56 PM CDT History and Physical Notes * HPI (History of Present Illness) Category Sub-Category Detail Notes Category Not es General Follow up on MTX 12.5mg/wk, R thumb and R hand ache, on prednisone 5mg/day, R thumb a little swollen off nabumetone due to kidney problem, had a stroke in 04/2023, GFR 62, LFTs normal, Hb 10.6 12/2020, SEBLE 1:320 (homogeneous), cascade (-), RF/CCP (-), joint pain steroid responsive ROS: +occasional oral ulcers, no sicca symptoms, no rashes, no hair loss, no photosensitivity, no Raynaud's. plaquenil caused ?double vision. arava caused hair loss and dizziness A-fib, had a stroke on 04/2023, on eliquis takes colcrys for possible gout. Examination Category Sub-Category Detail Notes Category Not es Rheumatology R IP mildly mildly swollen and tender, R hand PIPs and R 1st MCP tender Neurology Speech: normal Psychiatry Affect / mood: appropriate General Examination General appearance: alert, w ell-nourished and in no acute distress Head: normocephalic, atrau matic Eyes: normal Lungs: respiratory effort n ormal Skin: no rash
--- OUTSIDE RECORDS SUMMARY | 2024-08-05 14:57 | XMS_ITS | Referral Summary ---
Author Organization [facility] Address [address] [place] [address] Care Team Providers Care Food Quality Technician Name Role Phone Fernando Rucker MD Primary Care Provider [phone] Encounters Date Type Department Care Team Description 07/28/2024 11:15 AM CDT - 07/28/2024 3:42 PM CDT Emergency [facility] Emergency Department [address] [place] [id number] Yong Mcrae MD Dizziness (Primary Dx); Nonintractable headache, unspecified chronicity pattern, unspecified headache type; Urinary tract infection in female Discharge Disposition: Discharge to home or self care 06/14/2024 1:38 PM CDT - 06/14/2024 3:25 PM CDT Emergency [facility] Emergency Department [address] [place] [id number] Juan Carlos Burgess MD Hypokalemia (Primary Dx); Blister of left lower leg, initial encounter Discharge Disposition: Discharge to home or self care 05/22/2024 12:43 PM CDT - 05/22/2024 6:23 PM CDT Emergency [facility] Emergency Department [address] [place] [id number] Yong Mcrae MD Migraine without status migrainosus, not intractable, unspecified migraine type (Primary Dx) Discharge Disposition: Discharge to home or self care 05/17/2024 10:15 AM ENTERPRISE RECORDS 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 Office Visit [place] [facility] at [address] [phone] Sammi Chavez NP Diastolic dysfunction (Primary Dx); Chronic obstructive pulmonary disease, unspecified COPD type (HCC); Atrial fibrillation, unspecified type (HCC); Essential hypertension 05/10/2024 Telephone [place] [facility] at [address] [phone] Sam Roldan MA from Last 3 Months Allergies Active [...] 1 tablet (150 mg total) by mouth chimney builder helper before 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 Collaborating physician Ariel Oreilly MD 20 tablet 03/14/20 24 Active empagliflozin (JARDIANCE) 10 mg tabletIndications: Heart Failure Take 1 tablet (10 mg total) by mouth daily 30 tablet 11 05/18/19 25 Active butalbital-acetami nophen-caffeine (ESGIC) 50-325-40 mg per tablet Take 1 tablet by mouth every 6 (six) hours as needed for headaches 20 tablet 05/23/19 25 Active apixaban (ELIQUIS) 5 mg tablet Take 1 tablet (5 mg total) by mouth 2 (two) times a day 60 tablet 3 06/08/19 25 Active cephalexin (KEFLEX) 500 mg capsule Take 1 capsule (500 mg total) by mouth 4 (four) times a day for 7 days 28 capsule 07/29/19 25 025 Active Problems Problem Noted Date Diagnosed Date [...] drink = 0.6 oz pur e alcohol) [facility] Utilities Answer Date Recorded In the past 12 months has th e electric, gas, oil, or water company [...] often do you attend chur ch or baptism services? Never 02/19/2024 Do you belong to any clubs o r organizations such as rastafari groups, unions, fraternal or athletic groups, or [...] any time in the past 12 [facility], were you homeless or living in a skilled nursing (including now)? No 02/19/2024 Personal Safety Answer Date Recorded Have you ever been in or are you currently in a harmful physical or emotional relationship or is someone making you feel afraid or unsafe? Denies 07/28/2024 Comments No Sex and Gender Information Value Date Recorded Sex Assigned at Not on file Legal Sex Female 12:11 AM ENTERPRISE RECORDS ANALYST Gender Identity Not on file Sexual Orientation Not on file Last Filed Vital Signs Vital Sign Reading Time Taken Comments Blood Pressure 168/77 07/28/2024 3:15 PM CDT Pulse 69 07/28/2024 3:15 PM CDT Temperature 36.4 C (97.5 F) 07/28/2024 11:13 AM CDT Respiratory Rate 18 07/28/2024 2:00 PM CDT Oxygen Saturation 97% 07/28/2024 3:15 PM CDT Inhaled Oxygen Concentration - - Weight 59 kg (130 lb) 07/28/2024 11:13 AM CDT Height 157.5 cm (5' 2 ) 07/28/2024 11:13 AM CDT Body Mass Index 23.78 07/28/2024 11:13 AM CDT Plan of Treatment Not on file Procedures Procedure Name Priority Date/Time Associated Diagnosis Comments URINALYSIS, MICROSCOPIC ONLY STAT 07/28/2024 1:20 PM CDT URINE CULTURE STAT 07/28/2024 1:20 PM CDT URINALYSIS AND REFLEX TO MICROSCOPIC AND CULTURE STAT 07/28/2024 1:20 PM CDT XR CHEST 1 VIEW ED 07/28/2024 12:[address] HEAD WO CONTRAST ED 07/28/2024 1 2:00 PM CDT ECG 12-LEAD STAT 07/28/2024 11:47 AM CDT EGFR STAT 07/28/2024 11:39 AM CDT DIFFERENTIAL AUTO STAT 07/28/2024 11: 39 AM CDT COMPREHENSIVE METABOLIC PANEL STAT 07/28/2024 11:39 AM CDT CBC WITH AUTO DIFFERENTIAL STAT 07/28/2024 11:39 AM CDT MAGNESIUM Add-On 06/14/2024 12:46 PM CDT EGFR [...] CDT from Last 3 Months Results * (ABNORMAL) Urinalysis reflex to microscopic and culture Urine (07/28/2024 1:20 PM CDT) Color, ur Yellow Yellow Clarity, ur Clear Clear [facility] ([place]) Specific gravity, ur 1.019 1.003 - 1.030 [facility] ([place]) pH, [...] tendency for uric acid stone formation. Source: Victor Lyfepoints Current Interpretive Data was last revised on [...] [facility]) Leukocyte esterase, ur 2+(A) Negative [facility] ([place]) UA reflex comment Reflex to microscopic UA will be performed. [facility] ([place]) Urine 07/28/2024 1:20 PM CDT 07/28/2024 1:29 PM CDT Yong Mcrae MD LAB MICROBIOLOGY - GENERAL O RDERABLES Final Result Performing Organization Address [facility] Co de Phone Number RE[facility]I [facility] ([place]) [address] [place] [address] [employer] [place] [address] * (ABNORMAL) Urinalysis, microscopic only (07/28/2024 1:20 PM CDT) WBC, ur 11-20(A) 0 - 5 /HPF RBC, ur 0-2 0 - 2 /HPF [facility] ([place]) Epithelial cells, squamous, ur 1-5 0 - 5 /HPF [facility] ([place]) Bacteria, ur Trace(A) [facility] ([place]) Mucous, ur Present(A) [facility] ([place]) Hyaline casts, ur 1-5 0 - 10 /LPF [facility] ([place]) Culture Reflex Comment Reflex to urine culture will be performed. [facility] ([place]) Urine 07/28/2024 1:20 PM CDT 07/28/2024 1:42 PM CDT Yong Mcrae MD LAB URINE ORDERABLES Final R esult Performing Organization Address City/[facility] Co de Phone Number [facility] ([place]) [address] [facility] [place] [address] * (ABNORMAL) Urine culture Urine (07/28/2024 1:20 PM CDT) Report Final Report: Greater than or equal to 100,000 colonies/mL of Enterococcus faecalis Plus growth of clinically insignificant bacterial tariq. (.) Comment:Testing performed by : [facility], [address] [facility], [place]., [address] Organism ENTEROCOCCUS FAECALIS [facility] ([place]) Organism PLUS GROWTH OF CLINICALLY INSIGNIFICANT TARIQ. [facility] ([place]) Urine 07/28/2024 1:20 PM CDT 07/28/2024 6:52 PM CDT Narrative [facility] ([place]) - 07/30/2024 2:50 PM CDT Urine culture reflexed based upon urinalysis results. Testing performed by [facility] ([phone]) Organism Antibiotic Method Susceptibility Enterococcus faecalis Ampicillin (JIE) INTERPRETATIO N Susceptible Enterococcus faecalis Vancomycin (JIE) INTERPRETATIO N Susceptible Enterococcus faecalis Linezolid (JIE) INTERPRETATIO N Susceptible Enterococcus faecalis Doxycycline (JIE) INTERPRETATIO N Resistant Enterococcus faecalis Nitrofurantoin (JIE) INTERPRETAT ION Susceptible Yong Mcrae MD LAB MICROBIOLOGY - GENERAL O RDERABLES Final Result [facility] ([place]) 1 [facility] [place] [address] * XR Chest 1 Vw Portable (07/28/2024 12:03 PM CDT) Anatomical Region Laterality Modality Body, Chest N/A Computed Radiogr aphy 07/28/2024 12:4 2 PM CDT Narrative 07/28/2024 12:43 PM CDT EXAM DESCRIPTION: XR CHEST 1 VIEW REASON FOR STUDY: general weakness c/o dizziness x 1 week. Pt reports it worsened today and she has felt nauseous. Pt also has a headache. HX of stroke, left sided weakness since previous stroke. TECHNIQUE: Frontal radiographic view(s) of the chest. COMPARISON: 05/22/2024. FINDINGS: LUNGS: No focal opacity, pleural effusion, or pneumothorax. Calcified granuloma left upper lobe. HEART/MEDIASTINUM: Cardiac silhouette normal in size. Mediastinal and hilar contours appear normal. LINES/TUBES: None. BONES: No acute osseous abnormality. IMPRESSION: No acute cardiopulmonary abnormality. THIS IS AN ELECTRONICALLY VERIFIED FINAL REPORT 07/28/2024 12:43 PM - Electronically signed by Omer Yoon M.D. CH: NADEEN Report ID: [id number] Reading Location: [id number] Procedure Note Omer Yoon Jr., MD - 07/28/2024 EXAM DESCRIPTION: XR CHEST 1 VIEW REASON FOR STUDY: general weakness c/o dizziness x 1 week. Pt reports it worsened today and she has felt nauseous. Pt also has a headache. HX of stroke, left sided weakness since previous stroke. TECHNIQUE: Frontal radiographic view(s) of the chest. COMPARISON: 05/22/2024. FINDINGS: LUNGS: No focal opacity, pleural effusion, or pneumothorax. Calcified granuloma left upper lobe. HEART/MEDIASTINUM: Cardiac silhouette normal in size. Mediastinal andhilar contours appear normal. LINES/TUBES: None. BONES: No acute osseous abnormality. IMPRESSION: No acute cardiopulmonary abnormality. THIS IS AN ELECTRONICALLY VERIFIED FINAL REPORT 07/28/2024 12:43 PM - Electronically signed by Omer Yoon M.D. CH: NADEEN Report ID: [id number] Reading Location: [id number] Yong Mcrae MD IMG XR PROCEDURES Final Resu lt * CT Head WO Contrast (07/28/2024 12:00 PM CDT) Anatomical Region Laterality Modality Head and Neck N/A Computed Tomogra phy 07/28/2024 12:3 8 PM CDT Narrative 07/28/2024 12:42 PM CDT EXAM DESCRIPTION: CT HEAD WO CONTRAST REASON FOR STUDY: Headache, increasing frequency or severity Dizziness and headache for 1 week TECHNIQUE: Axial images acquired through the brain without intravenous contrast. Images stored on PACS. Automated exposure control was used as a dose optimization technique for this examination. COMPARISON: 05/22/2024. FINDINGS: BRAIN: Small area of encephalomalacia in the right occipital and parietal lobes with mild right cerebral volume loss. Mild periventricular white matter hypoattenuation is present, while nonspecific, evidence of chronic microangiopathic gliosis. EXTRA-AXIAL SPACES: No extra-axial fluid collection or mass. CALVARIUM: No acute skull base or calvarial abnormality. SINUSES/MASTOIDS: Predominantly clear. ORBITS: No significant abnormality. OTHER: No other significant abnormality. IMPRESSION: No evidence of an acute intracranial abnormality. Right occipital and parietal encephalomalacia with right cerebral volume loss unchanged. Evidence of mild chronic microangiopathic gliosis. THIS IS AN ELECTRONICALLY VERIFIED FINAL REPORT 07/28/2024 12:42 PM - Electronically signed by Omer Yoon M.D. CH: NADEEN Report ID: [id number] Reading Location: [place] [address] Procedure Note Omer Yoon Jr., MD - 07/28/2024 EXAM DESCRIPTION: CT HEAD WO CONTRAST REASON FOR STUDY: Headache, increasing frequency or severity Dizziness and headache for 1 week TECHNIQUE: Axial images acquired through the brain without intravenous contrast. Images stored on PACS. Automated exposure control was used asa dose optimization technique for this examination. COMPARISON: 05/22/2024. FINDINGS: BRAIN: Small area of encephalomalacia in the right occipital andparietal lobes with mild right cerebral volume loss. Mild periventricular whitematter hypoattenuation is present, while nonspecific, evidence of chronic microangiopathic gliosis. EXTRA-AXIAL SPACES: No extra-axial fluid collection or mass. CALVARIUM: No acute skull base or calvarial abnormality. SINUSES/MASTOIDS: Predominantly clear. ORBITS: No significant abnormality. OTHER: No other significant abnormality. IMPRESSION: No evidence of an acute intracranial abnormality. Right occipital and parietal encephalomalacia with right cerebral volumeloss unchanged. Evidence of mild chronic microangiopathic gliosis. THIS IS AN ELECTRONICALLY VERIFIED FINAL REPORT 07/28/2024 12:42 PM - Electronically signed by Omer Yoon M.D. CH: NADEEN Report ID: [id number] Reading Location: [id number] Yong Mcrae MD IMG CT PROCEDURES Final Resu lt * ECG 12 lead (07/28/2024 11:47 AM CDT) 07/28/2024 11:4 7 AM CDT Narrative [facility] - 07/28/2024 12:11 PM CDT Vent Rate: 71 bpm RR Interval: 838 msec HI Interval: 123 msec QRS Duration: 86 msec QT Interval: 382 msec QTC Interval: 405 msec P-R-T [place]: 33 - 54 - 62 degrees IMPRESSION: SINUS RHYTHM NORMAL ECG NO CHANGE FROM PREVIOUS TRACING NOTED Electronically Signed By: Chapin Padron MD Yong Mcrae MD ECG ORDERABLES Final Result [facility] * eGFR (07/28/2024 11:39 AM CDT) eGFR 64 >=60 mL/min/1. 73 m2 Comment: Interpretive Data [...] interpretive data was last reviewed 2021. Blood 07/28/2024 11:3 9 AM CDT 07/28/2024 11:43 AM CDT us Yong Mcrae MD LAB BLOOD ORDERABLES Final R esult [facility] ([place]) 1 [facility] [place] [address] * Differential, auto (07/28/2024 11:39 AM CDT) Neutrophil abs 6.37 1.50 - 6.50 K/cumm Imm gran abs 0.05 0.00 - 0.10 K/cumm [facility] ([place]) Lymphocyte abs 1.50 0.80 - 3.30 K/cumm [facility] ([place]) Monocyte abs 0.63 0.20 - 0.80 K/cumm [facility] ([place]) Eosinophil abs 0.13 0.00 - 0.50 K/cumm [facility] ([place]) Basophil abs 0.04 0.00 - 0.10 K/cumm [facility] ([place]) Neutrophil pct 73.0 % [facility] ([place]) Comment: Interpretive [...] was last revised on 2017. Lymphocyte pct 17.2 % [facility] ([place]) Comment: Interpretive [...] was last revised on 2017. Eosinophil pct 1.5 % [facility] ([place]) Comment: Interpretive [...] Data was last revised on 2017. Blood 07/28/2024 11:3 9 AM CDT 07/28/2024 11:43 AM CDT us Yong Mcrae MD LAB BLOOD ORDERABLES Final R esult [facility] ([place]) 1 [facility] [place] [address] * (ABNORMAL) CBC with auto differential (07/28/2024 11:39 AM CDT) WBC 8.72 3.80 - 9.90 K/cumm Hgb 10.2(L) 11.9 - 15.5 g/dL [facility] ([place]) Hct 33.8(L) 35.6 - 45.5 % [facility] ([place]) Plt 340 150 - 400 K/cumm [facility] ([place]) MPV 9.7 9.1 - 12.3 fL [facility] ([place]) RBC 3.85(L) 3.90 - 5.20 M/cumm [facility] ([place]) MCV 87.8 81.3 - 96.4 fL [facility] ([place]) MCH 26.5(L) 27.1 - 33.3 pg [facility] ([place]) MCHC 30.2(L) 32.3 - 35.7 g/dL [facility] ([place]) RDW CV 16.4(H) 11.1 - 14.9 % [facility] ([place]) RDW SD 52.2(H) 35.7 - 48.1 fL [facility] ([place]) NRBC abs 0.00 0.00 - 0.01 K/cumm [facility] ([place]) Blood 07/28/2024 11:3 9 AM CDT 07/28/2024 11:43 AM CDT us Yong Mcrae MD LAB BLOOD ORDERABLES Final R esult [facility] ([place]) 1 [facility] [place] [address] * (ABNORMAL) Comprehensive metabolic panel (07/28/2024 11:39 AM CDT) Sodium 141 135 - 145 mmol/L Potassium, pl 3.2(L) 3.3 - 4.9 mmol/L [facility] ([place]) Chloride 100 97 - 110 mmol/L [facility] ([place]) CO2 27 22 - 32 mmol/L [facility] ([place]) Anion gap 14 2 - 15 mmol/L [facility] ([place]) BUN 24 6 - 25 mg/dL [facility] ([place]) Creatinine 0.96 0.60 - 1.10 mg/dL [facility] ([place]) Glucose 126 70 - 199 mg/dL [facility] ([place]) [...] interpretive data was last revised 2022. Calcium 9.9 8.5 - 10.3 mg/dL [facility] ([place]) Bilirubin, total 0.4 0.1 - 1.2 mg/dL [facility] ([place]) Protein, pl 6.6 6.5 - 8.5 g/dL [facility] ([place]) Albumin 4.1 3.5 - 5.0 g/dL [facility] ([place]) Alk phos 70 40 - 130 Units/L [facility] ([place]) ALT 15 7 - 45 Units/L [facility] ([place]) AST 20 10 - 45 Units/L [facility] ([place]) Blood 07/28/2024 11:3 9 AM CDT 07/28/2024 11:43 AM CDT Yong Mcrae MD LAB BLOOD ORDERABLES Final R esult Performing Organization Address [facility] Co de Phone Number [facility] ([place]) [address] [facility] [place] [address] * eGFR (06/14/2024 12:46 PM CDT) eGFR [...] ORDERABLES Final Res ult Performing Organization Address City/[facility]/ZIP Co de Phone Number [facility] ([place]) [address] [facility] [place] [address] * (ABNORMAL) Differential, auto (06/14/2024 12:46 PM [...] Final Res ult [facility] ([place]) [address] [facility] [place] [address] * (ABNORMAL) CBC with auto differential (06/14/2024 [...] BLOOD ORDERABLES Final Res ult [facility] ([place]) 1 [facility] [place] [address] * Blood culture Blood (06/14/2024 12:46 PM CDT) Report Final Report: No growth Comment:Testing performed by : [facility], [address] [place]., [address] Blood 06/14/2024 12:4 6 PM CDT 06/14/2024 4:32 PM CDT Narrative [facility] ([place]) - 06/19/2024 7:00 AM CDT Collection->Peripheral Received only aerobic blood culture bottle 1. Blood cultures are incubated for 4 days on a continuously monitored blood culture system. The first report of a negative culture is issued within 24 hours of receipt of the specimen in the laboratory. 2. Positive culture results are reported as soon as they are detected. 3. The most important factor for detection of microbes in the setting of bloodstream infection is the volume of blood submitted for culture. Failure to collect an optimal blood volume can result in false negative blood cultures. 4. For pediatric patients, the recommended blood volume to collect follows a weight based strategy. See the electronic test catalog for collection instructions. 5. For positive blood cultures, a rapid molecular test [...] been verified by the [facility]. For questions about this culture, contact the Microbiology Laboratory at [phone]. Interpretive data was last revised on 24. Juan Carlos Burgess MD LAB MICROBIOLOGY - GENERAL ORD ERABLES Final Result [facility] ([place]) 1 [facility] Department of Laboratories [place], [place] [id number] * Blood culture Blood (06/14/2024 12:46 PM CDT) Report Final Report: No growth Comment:Testing performed by : [facility], [address] [place]., [address] Blood 06/14/2024 12:4 6 PM CDT 06/14/2024 4:31 PM CDT Narrative [facility] ([place]) - 06/19/2024 7:00 AM CDT Collection->Peripheral 1. Blood cultures are incubated for 4 days on a continuously monitored blood culture system. The first report of a negative culture is issued within 24 hours of receipt of the specimen in the laboratory. 2. Positive culture results are reported as soon as they are detected. 3. The most important factor for detection of microbes in the setting of bloodstream infection is the volume of blood submitted for culture. Failure to collect an optimal blood volume can result in false negative blood cultures. 4. For pediatric patients, the recommended blood volume to collect follows a weight based strategy. See the electronic test catalog for collection instructions. 5. For positive blood cultures, a rapid molecular test [...] been verified by the [facility]biology [facility]. For questions about this culture, contact the Microbiology Laboratory at [phone]. Interpretive data was last revised on 24. Juan Carlos Burgess MD LAB MICROBIOLOGY - GENERAL ORD ERABLES Final Result [facility] ([place]) 1 [facility] [employer] [place] [address] * Magnesium (06/14/2024 12:46 PM CDT) Magnesium 1.7 1.4 - 2.5 mg/dL Blood 06/14/2024 12:4 6 PM CDT 06/14/2024 2:42 PM CDT Joleen LOPEZ LAB BLOOD ORDERABLES Alice l Result RE[facility] ([place]) 1 [facility] [place] [employer] [place] [address] * (ABNORMAL) Comprehensive metabolic panel (06/14/2024 12:46 PM CDT) Sodium 145 135 - 145 mmol/L Potassium, pl 2.9(C) 3.3 - 4.9 mmol/L [facility] ([place]) Comment:Critical Result call ed by [id number] at 2024-06-14 13:13:54. Result Read Back by [...] BLOOD ORDERABLES Final Res ult [facility] [place] 1 [facility] Department [place] [address] * CTA Head Neck W WO Contrast [...] CT head same day FINDINGS: INTRACRANIAL VESSELS [place]: The anterior, middle, posterior cerebral [...] Bernabe Garcia M.D. RB: FRITZ Report ID: [id number] Reading Location: [id number] Procedure Note Bernabe Garcia MD - 05/22/2024 [...] CT head same day FINDINGS: INTRACRANIAL VESSELS [place]: The anterior, middle, posterior cerebral [...] Electronically signed by Bernabe Garcia M.D. RB: RFITZ Report ID: [id number] Reading Location: [id number] Yong Mcrae MD IMG CT PROCEDURES Final [...] tendency for uric acid stone formation. Source: [employer] Current Interpretive Data was last revised on [...] GENERAL O RDERABLES Final Result [facility] ([place]) 1 [facility] [place] [address] * XR Chest 1 Vw Portable (05/22/2024 [...] Emeka Chu D.O. AP: AP Report ID: [id number] Reading Location: [place] [address] Procedure Note Emeka Chu, DO - 05/22/2024 [...] Emeka Chu D.O. AP: AP Report ID: [id number] Reading Location: [place] [id number] Yong Mcrae MD IMG XR PROCEDURES Final Resu lt * ECG 12 lead (05/22/2024 1:14 PM CDT) 05/22/2024 1:14 PM CDT Narrative [facility] - 05/23/2024 9:26 AM CDT Vent Rate: 86 bpm RR Interval: 695 msec HI Interval: 120 msec QRS Duration: 88 msec QT Interval: 358 msec QTC Interval: 401 msec P-R-T [place]: 38 - 61 - 65 degrees IMPRESSION: SINUS RHYTHM NORMAL ECG NO CHANGE FROM PREVIOUS TRACING NOTED Electronically Signed By: Chapin Padron MD Yong Mcrae MD ECG ORDERABLES Final Result [facility] * CT Head WO Contrast [...] Emeka Chu D.O. AP: AP Report ID: [id number] Reading Location: [id number] Procedure Note Emeka Chu, DO - 05/22/2024 [...] Emeka Chu D.O. AP: AP Report ID: [id number] Reading Location: [place] [address] Yong Mcrae MD IMG CT PROCEDURES Final [...] BLOOD ORDERABLES Final R esult [facility] ([place]) 1 [facility] [place] [address] * (ABNORMAL) Differential, auto (05/22/2024 12:50 PM [...] MD LAB BLOOD ORDERABLES Final R esult [facility] ([place]) 1 [facility] [place] [address] * (ABNORMAL) CBC with auto differential (05/22/2024 [...] ([place]) MCHC 30.8(L) 32.3 - 35.7 g/dL [facility] ([place]) RDW CV 16.7(H) 11.1 - 14.9 % [facility] ([place]) RDW SD 54.5(H) 35.7 - 48.1 fL [facility] ([place]) NRBC abs 0.00 0.00 - 0.01 K/cumm [facility] ([place]) Blood 05/22/2024 12:5 0 PM CDT 05/22/2024 12:59 PM CDT us Yong Mcrae MD LAB BLOOD ORDERABLES Final R esult [facility] ([place]) 1 [facility] [place] [address] * (ABNORMAL) Comprehensive metabolic panel (05/22/2024 12:50 PM CDT) Sodium 140 135 - 145 mmol/L Potassium, pl 3.3 3.3 - 4.9 mmol/L [facility] ([place]) Chloride 97 97 - 110 mmol/L [facility] ([place]) CO2 26 22 - 32 mmol/L [facility] ([place]) Anion gap 17(H) 2 - 15 mmol/L [facility] ([place]) BUN 17 6 - 25 mg/dL [facility] ([place]) Creatinine 1.05 0.60 - 1.10 mg/dL [facility] ([place]) Glucose 153 70 - 199 mg/dL [facility] ([place]) Comment: Interpretive Data Fasting glucose >/= [...] BLOOD ORDERABLES Final R esult REJI CHAMBERS ([place]) 1 [facility] [employer] [place] [address] * POCT glucose (05/22/2024 12:43 PM CDT) Glucose, POC 139 70 - 199 mg/dL Blood 05/22/2024 12:4 3 PM CDT 05/22/2024 12:43 PM CDT Notinfile Unknown LAB POCT ORDERABLES - DEVICE F inal Result Performing Organization Address City/[facility]/ZIP Co de Phone Number REJI CHAMBERS ([place]) 1 [facility] [employer] [place] [address] from Last 3 Months Insurance [facility] MEDICARE ADVANTAGE [facility] MEDICARE ADVANTAGE Advance Directives For more information, please contact: [phone] * Full Code (Latest Code Status on File) Date Activated Date Inactivated Comments 02/19/2024 6:03 PM 02/21/2024 5:09 PM * Full Code Date Activated Date Inactivated Comments 02/11/2024 7:53 AM 02/13/2024 3:37 PM Care Teams Food Quality Technician Relationship Specialty Start Date End Date Fernando Rucker MD [address] [id number] PCP - General 05/25/14
--- OUTSIDE RECORDS SUMMARY | 2024-08-05 14:57 | XMS_ITS | Patient Health Record ---
Author Organization [facility] Address [address] [place] [address] [place] [address] Care Team Providers Care Bingo Floater Name Role Phone KEHINDE MERCEDES MD Primary Care Provider Shamar Garcia [facility] [phone] ALLERGIES Allergen (clinical drug ingredient) Drug/Non Drug Allergy documented on EMR Reaction Allergy Type Onset Date Status nalbuphine Nalbuphine itching Drug Allergy Activ e promethazine Promethazine itching Drug Allergy A ctive sumatriptan Sumatriptan rash Drug Allergy Act elizabeth RESULTS Component Value Reference Range Notes PROSimity Results (Not yet reviewed by provider) Interpretation: Performing Lab:[id number] [place], [address] [facility] [address] Colette Price MD Notes/Report: Codeine negative 1 ng/mL Morphine negative 1 ng/mL Hydrocodone positive-18.833 1 ng/mL Norhydrocodone Quantification negative 2 ng/mL Hydromorphone negative 1 ng/mL Oxycodone negative 1 ng/mL Noroxycodone Quantification negative 2 ng/mL Oxymorphone negative 1 ng/mL Fentanyl Quantification negative 0.2 ng/mL Norfentanyl Quantification negative 1 ng/mL Methadone negative 2 ng/mL EDDP (Methadone metabolite) negative 2 ng/mL Tramadol Quantification negative 5 ng/mL E-Sadufgfsj-Ccvpcyrm Quantification negative 5 ng/ mL Alprazolam negative 1 ng/mL Clonazepam negative 1 ng/mL Clonazepam Metabolite Quantification negative 1 ng /mL Diazepam negative 1 ng/mL Nordiazepam negative 1 ng/mL Lorazepam negative 1 ng/mL Oxazepam negative 2 ng/mL Temazepam negative 1 ng/mL Amphetamine negative 5 ng/mL Methamphetamine negative 5 ng/mL Cocaine Quantification negative 2 ng/mL Cocaine Metabolite negative 2 ng/mL THC (Marijuana Component) negative 2 ng/mL 6-JESUS (Heroin metabolite) Quantification negative 1 ng/mL [facility] Results (Not yet reviewed by provider) Interpretation: Performing Lab:[id number] [facility], [address] [facility] [address] Colette Price MD Notes/Report: Acetyl fentanyl: Fentanyl Negative. Acetyl norfentanyl: Fentanyl Negative. Acr yl fentanyl: Fentanyl Negative. Carfentanil: Fentanyl Negative. Para-fluorofent anyl: Fentanyl Negative. Codeine Quantification negative 50 ng/mL Morphine Quantification negative 50 ng/mL Hydrocodone Quantification positive-97215.898 50 ng/mL Norhydrocodone Quantification positive-> 6400 50 ng/mL Hydromorphone Quantification positive-528.853 50 ng/mL Oxycodone Quantification negative 50 ng/mL Noroxycodone Quantification negative 50 ng/mL Oxymorphone Quantification negative 50 ng/mL Fentanyl Quantification negative 1 ng/mL Norfentanyl Quantification negative 8 ng/mL Methadone Quantification negative 100 ng/mL EDDP (Methadone metabolite) Quantification negative 100 ng/mL Tramadol Quantification negative 100 ng/mL F-zivybjfcb-pzzuprvt Quantification negative 100 n g/mL A-Gfumulehf-Djgxodzr Quantification negative 100 n g/mL Alpha-Hydroxyalprazolam Quantification negative 20 ng/mL 3-Xvsjo-Rkzxagpryp Quantification negative 20 ng/m L Lorazepam Quantification negative 40 ng/mL Nordiazepam Quantification negative 40 ng/mL Temazepam Quantification negative 50 ng/mL Oxazepam Quantification negative 40 ng/mL Amphetamine Quantification negative 100 ng/mL Methamphetamine Quantification negative 100 ng/mL Cocaine metabolite Quantification negative 50 ng/m L cTHC (Marijuana metabolite) Quantification negative 15 ng/mL 6-JESUS (Heroin metabolite) Quantification negative 10 ng/mL Acetyl fentanyl Quantification Fen Neg 2 ng/mL Acetyl norfentanyl Quantification Fen Neg 5 ng/mL Acryl fentanyl Quantification Fen Neg 1 ng/mL Carfentanil Quantification Fen Neg 2 ng/mL Para-fluorofentanyl Quantification Fen Neg 1 ng/m L Mitragynine (Kratom alkaloid) Quantification negative 1 ng/mL 4-CM-Huknmkysopj (Kratom alk aloid) Quantification negative 1 ng/mL Ethyl Glucuronide Quantification negative 500 ng/m L Ethyl Sulfate Quantification negative 500 ng/mL [facility] Results (Not yet reviewed by provider) Interpretation: Performing Lab:[id number] [facility], [address] [address] [place] [id number] Colette Price MD Notes/Report: Codeine negative 1 ng/mL Morphine negative 1 ng/mL Hydrocodone positive-125.928 1 ng/mL Norhydrocodone Quantification positive-4.352 2 ng/mL Hydromorphone negative 1 ng/mL Oxycodone negative 1 ng/mL Noroxycodone Quantification negative 2 ng/mL Oxymorphone negative 1 ng/mL Fentanyl Quantification negative 0.2 ng/mL Norfentanyl Quantification negative 1 ng/mL Methadone negative 2 ng/mL EDDP (Methadone metabolite) negative 2 ng/mL Tramadol Quantification negative 5 ng/mL N-Wvakzamqc-Vmimuubf Quantification negative 5 ng/ mL Alprazolam negative 1 ng/mL Clonazepam negative 1 ng/mL Clonazepam Metabolite Quantification negative 1 ng /mL Diazepam negative 1 ng/mL Nordiazepam negative 1 ng/mL Lorazepam negative 1 ng/mL Oxazepam negative 2 ng/mL Temazepam negative 1 ng/mL Amphetamine negative 5 ng/mL Methamphetamine negative 5 ng/mL Cocaine Quantification negative 2 ng/mL Cocaine Metabolite negative 2 ng/mL THC (Marijuana Component) negative 2 ng/mL 6-JESUS (Heroin metabolite) Quantification negative 1 ng/mL [facility] Results (Not yet reviewed by provider) Interpretation: Performing Lab:[id number] [facility], [address] [address] [place] [id number] Colette Price MD Notes/Report: Codeine negative 1 ng/mL Morphine negative 1 ng/mL Hydrocodone positive-144.828 1 ng/mL Norhydrocodone Quantification positive-9.606 2 ng/mL Hydromorphone negative 1 ng/mL Oxycodone negative 1 ng/mL Noroxycodone Quantification negative 2 ng/mL Oxymorphone negative 1 ng/mL Fentanyl Quantification negative 0.2 ng/mL Norfentanyl Quantification negative 1 ng/mL Methadone negative 2 ng/mL EDDP (Methadone metabolite) negative 2 ng/mL Tramadol Quantification negative 5 ng/mL A-Zhlueetpl-Sghpuwya Quantification negative 5 ng/ mL Alprazolam negative 1 ng/mL Clonazepam negative 1 ng/mL Clonazepam Metabolite Quantification negative 1 ng /mL Diazepam negative 1 ng/mL Nordiazepam negative 1 ng/mL Lorazepam negative 1 ng/mL Oxazepam negative 2 ng/mL Temazepam negative 1 ng/mL Amphetamine negative 5 ng/mL Methamphetamine negative 5 ng/mL Cocaine Quantification negative 2 ng/mL Cocaine Metabolite negative 2 ng/mL THC (Marijuana Component) negative 2 ng/mL 6-JESUS (Heroin metabolite) Quantification negative 1 ng/mL REASON FOR REFERRAL Reason Further evaluation o f patient's severe bilateral hand pain Diagnosis 1 Pain in joints of un specified hand (M25.549) Referral Organization [facility] Referring Provider First Name Shamar Referring Provider Last Name Mary Referring Provider Speciality Pain Medic ine Referred Provider Latesha CLAY BRUCE Referred Provider Specialty Orthopedic S urgery Referral Priority Routine MEDICATIONS Medication SIG (Take, Route, Frequency, Duration) Notes Start Date End Date Status hydroCHLOROthiazide 25 MG TAKE 1 TABLET BY [...] a day for 30 day(s) 09/11/2023 Active Potassium Chloride ER 20 MEQ 1 tablet with food Orally Once a day for 30 day(s) Active buPROPion HCl ER (XL) 150 MG TAKE 1 TABLET BY MOUTH IN THE MORNING Oral for 30 Active Meclizine HCl 25 MG TAKE 1 TABLET BY MOUTH EVERY 8 HOURS NEEDED FOR DIZZINESS Oral for 20 Active Potassium Chloride Mag ER 20 MEQ TAKE 1 TABLET BY MOUTH ONCE DAILY NEEDED. TAKE WITH LASIX. Oral for 30 Active Ipratropium-Albuterol 0.5-2.5 (3) MG/3ML USE 3 ML IN NEBULIZER 4 TIMES DAILY NEEDED FOR SHORTNESS OF BREATH Inhalation for 30 Active Furosemide 40 MG TAKE 1 TABLET BY MOUTH ONCE DAILY Oral for 30 Active LORazepam 0.5 MG 1 tablet at bedtime as needed Oral Once a day Active Bevespi Aerosphere 9-4.8 MCG/ACT 2 puffs Inhalation Twice a day Active Albuterol Sulfate HFA 108 (90 Base) MCG/ACT INHALE 2 PUFFS BY MOUTH EVERY 4 HOURS NEEDED FOR SHORTNESS OF BREATH OR WHEEZING Inhalation for 16 Active Ondansetron 8 MG DISSOLVE 1 TABLET IN MOUTH EVERY 12 HOURS NEEDED FOR NAUSEA AND VOMITING Oral for 15 Active Colchicine 0.6 MG 1 tablet Oral once a day Active Vitamin D3 1.25 MG (87576 UT) TAKE 1 CAPSULE BY MOUTH ONCE WEEKLY Oral for 98 Active Jardiance 10 MG TAKE 1 TABLET BY MOUTH ONCE DAILY Oral for 30 Active Vitamin D (Ergocalciferol) 1.25 MG (29712 UT) 1 capsule Oral Once a day Active HYDROcodone-Acetaminophen 7.5-325 MG 1 tablet as needed Orally every 6 hrs for 30 days MAY FILL 07/23/24 07/22/2024 Active busPIRone HCl 10 MG 1 tablet Oral Twice a day Active Pantoprazole Sodium 40 MG TAKE 1 TABLET BY MOUTH ONCE DAILY IN THE MORNING Oral for 90 Active Amitriptyline HCl 10 MG 1 tablet at bedtime Oral Once a day Active Methotrexate Sodium 2.5 MG as directed Oral Active Cyanocobalamin 1000 MCG/ML ADMINISTER 1 ML UNDER THE SKIN MONTHLY Injection for 90 Active Lisinopril 20 MG TAKE 1 TABLET BY MOUTH AT BEDTIME Oral for 90 Active Premarin 0.625 MG 1 tablet Oral Once a day Active Metoprolol Succinate ER 50 MG 1 tablet Oral Once a day Active Ucuonoyjab-SXDI-Zhhblxth 50-325-40 MG TAKE 1 TABLET BY MOUTH EVERY 4 HOURS NEEDED FOR MIGRAINE Oral for 1 Active Eliquis 5 MG 1 tablet Oral Twice a day Active Atorvastatin Calcium 10 MG TAKE 1 TABLET BY MOUTH DAILY Oral for 90 Active SOCIAL HISTORY Tobacco Use: Social History Observation Description Date Details (start date - stop date) Never Smoker NA - NA Sex Assigned At : Social History Observation Description Sex Assigned At Unknown Tobacco Use/Smoking Question Answer Notes Are you a nonsmoker Alcohol Screen (Audit-C) Question Answer Notes Did you have a drink containing alcohol in the p ast year? No Points 0 Interpretation Negative PROBLEMS Problem Type ICD Code Onset Dates Problem Status W/U Status Risk SNOMED Code Notes Problem Rheumatoid arthritis, unspecified (M06.9) Active confirmed Rheumatoid arthritis (06347262) Problem Erosive (osteo)arthriti s (M15.4) Active confirmed Erosive osteoarthrosis () Problem [facility] (current) use of opiate analgesic (Z79.891) Active confirmed Problem Pain in joints of right hand (M25.541) Active confirmed Hand joint pain () Problem Pain in joints of left hand (M25.542) Active confirmed Hand joint pain () Problem Pain in joints of unspecified hand (M25.549) Active confirmed Hand joint pa in () VITAL SIGNS Heart Rate 86 /min 07/22/2024 Respiratory Rate 18 /min 07/22/2024 Blood pressure diastolic 75 mm Hg 07/22/2024 Height 5 ft 1 in in 07/22/2024 Blood pressure systolic 138 mm Hg 07/22/2024 Weight 153 lbs 07/22/2024 BMI 28.91 kg/m2 07/22/2024 Encounters Encounter Location Date Provider Diagnosis [facility] [address] [place] [phone] 08/13/2023 Shamar Stynowick Pain in joints of unspecified hand M25.549 ; Pain in joints of right hand M25.541 ; Erosive (osteo)arthritis M15.4 ; Rheumatoid arthritis, unspecified M06.9 and [facility] (current) use of opiate analgesic Z79.891 [facility] [address] [place] [address] 09/03/2023 Shamar Stynowick Pain in joints of unspecified hand M25.549 ; Pain in joints of right hand M25.541 ; Erosive (osteo)arthritis M15.4 ; Rheumatoid arthritis, unspecified M06.9 and [facility] (current) use of opiate analgesic Z79.891 [facility] [address] [facility] [place] [address] 09/11/2023 Shamar Stynowick Pain in joints of unspecified hand M25.549 ; Pain in joints of right hand M25.541 and Pain in joints of left hand M25.542 [facility] [address] [facility] [place] [address] 09/28/2023 Shamar Stynowick Pain in joints of unspecified hand M25.549 ; Pain in joints of right hand M25.541 ; Erosive (osteo)arthritis M15.4 ; Rheumatoid arthritis, unspecified M06.9 and [facility] (current) use of opiate analgesic Z79.891 [facility] [address] [facility] [place] [address] 10/27/2023 Shamar Stynowick Pain in joints of unspecified hand M25.549 ; Pain in joints of right hand M25.541 ; Erosive (osteo)arthritis M15.4 ; Rheumatoid arthritis, unspecified M06.9 and [facility] (current) use of opiate analgesic Z79.891 [facility] [address] [facility] [place] [address] 11/02/2023 Shamar Stynowick Pain in joints of unspecified hand M25.549 [facility] [address] [place] [address] [place] [address] 11/23/2023 Shamar Stynowick Pain in joints of unspecified hand M25.549 and Erosive (osteo)arthritis M15.4 [facility] [address] [facility] [place] [address] 11/27/2023 Shamar Stynowick Pain in joints of unspecified hand M25.549 ; Pain in joints of right hand M25.541 ; Erosive (osteo)arthritis M15.4 ; Rheumatoid arthritis, unspecified M06.9 and [facility] (current) use of opiate analgesic Z79.891 [facility] [address] [facility] [place] [address] 12/03/2023 Shamar Stynowick Pain in joints of unspecified hand M25.549 ; Pain in joints of right hand M25.541 ; Erosive (osteo)arthritis M15.4 ; Rheumatoid arthritis, unspecified M06.9 and [facility] (current) use of opiate analgesic Z79.891 [facility] [address] [facility] [place] [address] 12/31/2023 Shamar Stynowick Pain in joints of unspecified hand M25.549 ; Pain in joints of right hand M25.541 ; Erosive (osteo)arthritis M15.4 ; Rheumatoid arthritis, unspecified M06.9 and [facility] (current) use of opiate analgesic Z79.891 [facility] [address] [place] [address], [place] [address] 01/29/2024 Shamar Stynowick Pain in joints of unspecified hand M25.549 ; Pain in joints of right hand M25.541 ; Erosive (osteo)arthritis M15.4 ; Rheumatoid arthritis, unspecified M06.9 and [facility] (current) use of opiate analgesic Z79.891 [facility] [address] [facility] [place] [address] 02/26/2024 Shamar Stynowick Pain in joints of unspecified hand M25.549 ; Pain in joints of right hand M25.541 ; Erosive (osteo)arthritis M15.4 ; Rheumatoid arthritis, unspecified M06.9 and [facility] (current) use of opiate analgesic Z79.891 [facility] [address] [place] [address], [place] [address] 03/28/2024 Shamar Stynowick Pain in joints of right hand M25.541 ; Rheumatoid arthritis, unspecified M06.9 ; Pain in joints of unspecified hand M25.549 ; Erosive (osteo)arthritis M15.4 and [facility] (current) use of opiate analgesic Z79.891 [facility] [address] [facility] [place] [address] 04/26/2024 Shamar Stynowick Pain in joints of right hand M25.541 ; Rheumatoid arthritis, unspecified M06.9 ; Pain in joints of unspecified hand M25.549 ; Erosive (osteo)arthritis M15.4 and [facility] (current) use of opiate analgesic Z79.891 [facility] [address] [facility] [place] [address] 04/27/2024 Shamar Stynowick Pain in joints of right hand M25.541 ; Rheumatoid arthritis, unspecified M06.9 ; Pain in joints of unspecified hand M25.549 ; Erosive (osteo)arthritis M15.4 and [facility] (current) use of opiate analgesic Z79.891 [facility] [address] [facility] [place] [address] 05/24/2024 Shamar Stynowick Pain in joints of right hand M25.541 ; Rheumatoid arthritis, unspecified M06.9 ; Pain in joints of unspecified hand M25.549 ; Erosive (osteo)arthritis M15.4 and [facility] (current) use of opiate analgesic Z79.891 [facility] [address] [place] [phone] 06/22/2024 Shamar Stynowick Pain in joints of right hand M25.541 ; Rheumatoid arthritis, unspecified M06.9 ; Pain in joints of unspecified hand M25.549 ; Erosive (osteo)arthritis M15.4 and [facility] disintegr[facility] (current) use of opiate analgesic Z79.891 [facility] [address] [place] [phone] 07/22/2024 Shamar Stynowick Pain in joints of right hand M25.541 ; Rheumatoid arthritis, unspecified M06.9 ; Pain in joints of unspecified hand M25.549 ; Erosive (osteo)arthritis M15.4 and [facility] disintegr[facility] (current) use of opiate analgesic Z79.891 ASSESSMENTS Encounter Date Diagnosis Assessment Notes Treatment Notes Treatment Clinical Notes 08/13/2023 Pain in joints of unspecified hand (ICD-10 - M25.549) 09/03/2023 Pain in joints of right hand (ICD-10 - M25.541) 09/03/2023 Pain in joints of unspecified hand (ICD-10 - M25.549) Schedule a bilateral thumb joint (DIP) injection. The risks of this procedure including pain, bleeding, infection, nerve damage, insomnia, hyperglycemia, hair loss, muscle atrophy, skin depigmentation, weight gain, fluid retention, adrenal suppression, immunosuppression, osteoporosis resulting in fractures, avascular necrosis of the hip, cataracts, bleeding gastric ulcer, worsening pain and failure to relieve pain were discussed and the patient is agreeable to proceeding at this time. 09/11/2023 Pain in joints of right hand (ICD-10 - M25.541) 09/11/2023 Pain in joints of unspecified hand (ICD-10 - M25.549) 09/28/2023 Pain in joints of right hand (ICD-10 - M25.541) 09/28/2023 Pain in joints of unspecified hand (ICD-10 - M25.549) The side effects of opioid analgesics including [...] to fully comply with the above. The [place] PDMP were reviewed and were appropriate 10/27/2023 Pain in joints of right hand (ICD-10 - M25.541) 10/27/2023 Pain in joints of unspecified hand (ICD-10 - M25.549) Schedule a bilateral thumb joint (DIP) injection. The risks of this procedure including pain, bleeding, infection, nerve damage, insomnia, hyperglycemia, hair loss, muscle atrophy, skin depigmentation, weight gain, fluid retention, adrenal suppression, immunosuppression, osteoporosis resulting in fractures, avascular necrosis of the hip, cataracts, bleeding gastric ulcer, worsening pain and failure to relieve pain were discussed and the patient is agreeable to proceeding at this time. 11/02/2023 Pain in joints of unspecified hand (ICD-10 - M25.549) 11/23/2023 Erosive (osteo)arthritis (ICD-10 - M15.4) 11/23/2023 Pain in joints of unspecified hand (ICD-10 - M25.549) 11/27/2023 Pain in joints of unspecified hand (ICD-10 - M25.549) 12/03/2023 Pain in joints of right hand (ICD-10 - M25.541) 12/03/2023 Pain in joints of unspecified hand (ICD-10 - M25.549) The patient recently underwent The patient presents for a follow-up s/p bilateral thumb joint injection done on 11/23/23 and reports a 1 week 85% reduction of her thumb pain since this procedure. She currently denies a need for any injections or interventions at this time. She would like to return to the office in 1 month for follow-up and reevaluation of her pain at that time. The side effects of opioid analgesics including [...] to fully comply with the above. The [facility] PDMP were reviewed and were appropriate 12/31/2023 Pain in joints of right hand (ICD-10 - M25.541) 12/31/2023 Pain in joints of unspecified hand (ICD-10 - M25.549) 01/29/2024 Pain in joints of right hand (ICD-10 [...] to fully comply with the above. [facility] PDMP were reviewed and were appropriate 01/29/2024 Pain in joints of unspecified hand (ICD-10 - M25.549) 02/26/2024 Pain in joints of unspecified hand (ICD-10 - M25.549) 03/28/2024 Rheumatoid arthritis, unspecified (ICD-10 - M06.9) The [...] to fully comply with the above. The [place] PD[place] were reviewed and were appropriate 03/28/2024 Pain in joints of right hand (ICD-10 - M25.541) 04/26/2024 Pain in joints of right hand (ICD-10 - M25.541) 04/27/2024 Pain in joints of right hand (ICD-10 - M25.541) 05/24/2024 Pain in joints of right hand [...] to fully comply with the above. [facility] PDMP were reviewed and were appropriate 06/22/2024 Pain in joints of right hand (ICD-10 - M25.541) 07/22/2024 Pain in joints of right hand (ICD-10 - M25.541) 07/22/2024 Pain in joints of unspecified hand (ICD-10 - M25.549) 05/24/2024 Rheumatoid arthritis, unspecified (ICD-10 - M06.9) 06/22/2024 Pain in joints of unspecified hand (ICD-10 - M25.549) 07/22/2024 Rheumatoid arthritis, unspecified (ICD-10 - M06.9) [...] to fully comply with the above. [facility] PDMP were reviewed and were appropriate 05/24/2024 Pain in joints of unspecified hand (ICD-10 - M25.549) 06/22/2024 Rheumatoid arthritis, unspecified (ICD-10 - M06.9) The [...] to fully comply with the above. [facility] PDMP were reviewed and were appropriate 11/27/2023 Pain in joints of right hand (ICD-10 - M25.541) 02/26/2024 Pain in joints of right hand (ICD-10 - M25.541) 04/26/2024 Pain in joints of unspecified hand (ICD-10 - M25.549) 04/27/2024 Rheumatoid arthritis, unspecified (ICD-10 - M06.9) [...] to fully comply with the above. [facility] PDMP were reviewed and were appropriate 03/28/2024 Pain in joints of unspecified hand (ICD-10 - M25.549) 04/26/2024 Rheumatoid arthritis, unspecified (ICD-10 - M06.9) [...] to fully comply with the above. The [place] PD[place] were reviewed and were appropriate 02/26/2024 Erosive (osteo)arthritis (ICD-10 - M15.4) 01/29/2024 Erosive (osteo)arthritis (ICD-10 - M15.4) 12/31/2023 Erosive (osteo)arthritis (ICD-10 - M15.4) 12/03/2023 Erosive (osteo)arthritis (ICD-10 - M15.4) 10/27/2023 Erosive (osteo)arthritis (ICD-10 - M15.4) 09/28/2023 Erosive (osteo)arthritis (ICD-10 - M15.4) 09/03/2023 Erosive (osteo)arthritis (ICD-10 - M15.4) 09/11/2023 Pain in joints of left hand (ICD-10 - M25.542) 08/13/2023 Pain in joints of right hand (ICD-10 - M25.541) Patient recently underwent right thumb injection done on 07/20/23 and reports a 3 week 85% reduction of her thumb pain since this procedure. She currently denies a need for any injections or interventions at this time. She would like to return to the office in 1 month for follow-up and reevaluation of her pain at that time. 08/13/2023 Erosive (osteo)arthritis (ICD-10 - M15.4) 08/13/2023 Rheumatoid arthritis, unspecified (ICD-10 - M06.9) 09/03/2023 Rheumatoid arthritis, unspecified (ICD-10 - M06.9) 09/28/2023 Rheumatoid arthritis, unspecified (ICD-10 - M06.9) 10/27/2023 Rheumatoid arthritis, unspecified (ICD-10 - M06.9) 11/27/2023 Erosive (osteo)arthritis (ICD-10 - M15.4) 12/03/2023 Rheumatoid arthritis, unspecified (ICD-10 - M06.9) 12/31/2023 Rheumatoid arthritis, unspecified (ICD-10 - M06.9) The [...] to fully comply with the above. [facility] PDMP were reviewed and were appropriate 01/29/2024 Rheumatoid arthritis, unspecified (ICD-10 - M06.9) 02/26/2024 Rheumatoid arthritis, unspecified (ICD-10 - M06.9) The [...] to fully comply with the above. [facility] PDMP were reviewed and were appropriate 04/26/2024 Erosive (osteo)arthritis (ICD-10 - M15.4) 03/28/2024 Erosive (osteo)arthritis (ICD-10 - M15.4) 04/27/2024 Pain in joints of unspecified hand (ICD-10 - M25.549) 06/22/2024 Erosive (osteo)arthritis (ICD-10 - M15.4) 07/22/2024 Erosive (osteo)arthritis (ICD-10 - M15.4) 05/24/2024 Erosive (osteo)arthritis (ICD-10 - M15.4) 05/24/2024 [facility] (current) use of opiate analgesic (ICD-10 - Z79.891) 07/22/2024 [facility] (current) use of opiate analgesic (ICD-10 - Z79.891) The patient submitted a urine sample for drug screening to ensure compliance. 06/22/2024 [facility] (current) use of opiate analgesic (ICD-10 - Z79.891) 04/27/2024 Erosive (osteo)arthritis (ICD-10 - M15.4) 03/28/2024 [facility] (current) use of opiate analgesic (ICD-10 - Z79.891) 04/26/2024 [facility] (current) use of opiate analgesic (ICD-10 - Z79.891) The patient submitted a urine sample for drug screening to ensure compliance. 02/26/2024 [facility] (current) use of opiate analgesic (ICD-10 - Z79.891) 01/29/2024 [facility] disintegr[facility] (current) use of opiate analgesic (ICD-10 - Z79.891) The patient submitted a urine sample for drug screening to ensure compliance. 12/31/2023 sweet potato disintegrator (current) use of opiate analgesic (ICD-10 - Z79.891) 12/03/2023 sweet potato disintegrator (current) use of opiate analgesic (ICD-10 - Z79.891) 10/27/2023 [facility] (current) use of opiate analgesic (ICD-10 - Z79.891) 11/27/2023 Rheumatoid arthritis, unspecified (ICD-10 - M06.9) 09/28/2023 [facility] (current) use of opiate analgesic (ICD-10 - Z79.891) 09/03/2023 sweet potato disintegrator (current) use of opiate analgesic (ICD-10 - Z79.891) 08/13/2023 [facility] (current) use of opiate analgesic (ICD-10 - Z79.891) 11/27/2023 [facility] (current) use of opiate analgesic (ICD-10 - Z79.891) 04/27/2024 sweet potato disintegrator (current) use of opiate analgesic (ICD-10 - Z79.891) 08/13/2023 Other The above-named patient was evaluated in [...] occurred. This note was dictated by ARIS Tan 09/03/2023 Other The above-named patient was evaluated in [...] occurred. This note was dictated by ARIS Tan 09/28/2023 Other The above-named patient was evaluated in [...] occurred. This note was dictated by ARIS Tan 12/31/2023 Other The above-named patient was evaluated in [...] with Patient and Medical Decision Makin minutes 01/29/2024 Other The above-named patient was evaluated in [...] with Patient and Medical Decision Makin minutes 02/26/2024 Other The above-named patient was evaluated in [...] with Patient and Medical Decision Makin minutes 03/28/2024 Other The above-named patient was evaluated in [...] with Patient and Medical Decision Makin minutes 04/26/2024 Other The above-named patient was evaluated [...] with Patient and Medical Decision Makin minutes 05/24/2024 Other The above-named patient was evaluated [...] with Patient and Medical Decision Makin minutes 06/22/2024 Other The above-named patient was evaluated in [...] with Patient and Medical Decision Makin minutes 07/22/2024 Other The above-named patient was evaluated [...] Medical Decision Makin minutes PLAN OF TREATMENT Pending Test Test Name Order Date Millennium Results 07/14/2023 Millennium Results 11/04/2023 Millennium Results 01/29/2024 Millennium Results 04/26/2024 Millennium Results 07/22/2024 Next Appt Details Provider Name:Shamar sterling, 08/22/2024 09:15:00 AM, [address] [place], [address], Insurance Providers Payer Name Payer Address Payer Phone Subscriber Number Group Number Insured Name Patient Relationship to Insured Coverage Start Date Coverage End Date [facility] MEDICARE ADVANTAGE [address] [place] [address] [id number] RAJESH MORRIS Self - patient is the insured MEDICAL (GENERAL) HISTORY Medical History History ICD Code COPD Hypertension Anxiety Migraine Gout Anemia Insomnia Rheumatoid arthritis 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
--- OUTSIDE RECORDS SUMMARY | 2024-08-05 14:57 | XMS_ITS | Encounter Summary ---
Author Organization [facility] Address [address] [place] [address] Phone Care Team Providers Care Orthopedics Nurse Name Role Phone Fernando Rucker MD Primary Care Provider Sylvester Graves MD Unavailable [phone] Encounter Details Date Type Department Care Team (Late Contact Info) Description 03/07/2020 Lab Requisition [facility] [address] [place] [phone] Wendy Porras, ANODE BUILDER, SKINNER PELTS [address] [place] [address] Social History Tobacco Use Types [...] Department Care Team (Late Contact Info) Description 12/19/2024 10:30 AM CDT [facility] [place] [phone] Angela Ferrara, ANODE BUILDER, SPECIALTY TRANSFORMER ASSEMBLER [address] [place] [address] documented as of this encounter Procedures Procedure Name Priority Date/Time Associated Diagnosis Comments SARS-COV-2 BY MOLECULAR Routine 03/07/2020 9:17 AM COMMERCIAL DECORATOR documented in this encounter Results * SARS-COV-2 BY MOLECULAR (03/07/2020 9:17 AM COMMERCIAL DECORATOR) SARSCOV2 NOT DETECTED (Referen ce Range for this test is Not Detected ) [facility] THERMOFISHER FAST DX 03/08/2020 11:19 AM COMMERCIAL DECORATOR [facility] Comment:This test was perfor med by a PCR method. Other NASOPHARYNGEAL STRUCTURE / Unknown Non-Phlebotomy Collection / Unknown 03/07/2020 9:17 AM COMMERCIAL DECORATOR 03/07/2020 11:26 AM COMMERCIAL DECORATOR Narrative [facility] - 03/08/2020 11:19 AM COMMERCIAL DECORATOR Authorized Fact Sheets about this test for providers and patients are available at: https://www.fda.gov/medical-devices/pdcexjfoj-dflwjodbqr-ktwdmat-devices/emergen -us e-authorizations us Wendy Porras ANODE BUILDER, SKINNER PELTS MICROBIOLOGY - GENE RAL ORDERABLES Final Result [facility] [address] [place] [address], documented in this encounter Visit Diagnoses Not on filedocumented in this encounter Additional Health Concerns Infection Onset Date Last Indicated Resolved Time COVID - 19 03/07/2020 03/07/2020 03/12/2020 1:33 PM COMMERCIAL DECORATOR COVID - 19 03/21/2020 04/11/2020 04/14/2020 9:09 AM COMMERCIAL DECORATOR COVID - 19 02/09/2024 02/09/2024 02/09/2024 8:24 PM COMMERCIAL DECORATOR Assessment Noted Time PHQ-9 Depression Total Score: 0 06/25/19 18 12:00 PM CDT documented as of this encounter Care Teams Orthopedics Nurse Relationship Specialty Start Date End Date Fernando Rucker MD [address] [address] PCP - General Family Medicine 05/11/15 Sylvester Graves MD [address] [place] [address] Consulting Physician Neurology 06/17/23 documented as of this encounter
--- OUTSIDE RECORDS SUMMARY | 2024-08-05 14:57 | XMS_ITS ---
Author Organization [facility] yu Address [address] [facility] [address] [place] [address] Care Team Providers Care Rotary Filter Operator Name Role Phone Fernando Rucker MD Primary Care Provider Judie Win Opal Jing [phone] REASON FOR VISIT Refills Medications Medication SIG (Take, Route, Fr equency, Duration) Notes Start Date End Date Status predniSONE 5 MG 3 tablets once a day for 7 days, 2 tablets once a day for 7 days, 1 tablet once a day for 7 days Orally for 21 days 06/30/2024 07/21/2024 Active Encounters Encounter Location Date Provider Diagnosis [facility] [address] [facility] [address] [place] [address] 06/30/2024 Opal Win Plan Of Treatment Medication Medication Name Sig Start Date Stop Date Notes predniSONE 5 MG 3 tablets once a day for 7 days, 2 tablets once a day for 7 days, 1 tablet once a day for 7 days Orally for 21 days 06/30/2024 07/21/2024 Next Appt Details Provider Name:Opal Win, 10/21 10:45:00 AM, [address] [facility] [address], [place], [address], Progress Notes * Monse MORRISDOB:[birth year] (69 yo F)Acc No.[id number]:06/30/2024 Patient: Libby Monse YAÑEZ :1955 A ge:69 Y S ex:Female Address:[address] [place] [address], [address] * Refills Start predniSONE Tablet, 5 MG, Orally, 42 tablet, 3 tablets once a day for 7 days, 2 tablets once a day for 7 days, 1 tablet once a day for 7 days, 21 days, Refills=0 * true * Date: Generated for Aby dowd/Claribel/Ashlyitting on: 0 08/05/2024 02:57 PM CDT
--- OUTSIDE RECORDS SUMMARY | 2024-08-05 14:57 | XMS_ITS | Encounter Summary ---
Author Organization [facility] Address [address] [place] [address] Phone Care Team Providers Care Housing Assistant Name Role Phone Fernando Rucker MD Primary Care Provider Sylvester Graves MD Unavailable [phone] Encounter Details Date Type Department Care Team (Late Contact Info) Description 03/21/2020 [facility] [address] [place] [phone] Wendy Porras, REAL ESTATE SALES MANAGER, GENERAL INSPECTOR [address] [place] [address] Social History Tobacco Use Types [...] Description 12/19/2024 10:30 AM CDT [facility] [place] [phone] Angela Ferrara, REAL ESTATE SALES MANAGER, SPARK PLUG TESTER [address] [place] [address] documented as of this encounter Procedures Procedure Name Priority Date/Time Associated Diagnosis Comments SARS-COV-2 BY MOLECULAR Routine 03/21/2020 9:26 AM CAR CHASER documented in this encounter Results * SARS-COV-2 BY MOLECULAR (03/21/2020 9:26 AM CAR CHASER) SARSCOV2 NOT DETECTED (Referen ce Range for this test is Not Detected ) [facility] THERMOFISHER FAST DX 03/22/2020 3:09 AM CAR CHASER [facility] Comment:This test was perfor med by a PCR method. Other NASOPHARYNGEAL STRUCTURE / Unknown No Phlebotomy Charged / Unknown 03/21/2020 9:26 AM CAR CHASER 03/21/2020 10:53 AM CAR CHASER N[facility]ative [facility] - 03/22/2020 3:09 AM CAR CHASER Authorized Fact Sheets about this test for providers and patients are available at: https://www.fda.gov/medical-devices/zswvlvpdj-kojpfirafq-ontdern-devices/emergen -us e-authorizations us Wendy Porras REAL ESTATE SALES MANAGER, GENERAL INSPECTOR MICROBIOLOGY - GENE RAL ORDERABLES Final Result [facility] [address] [place] [address], documented in this encounter Visit Diagnoses Not on filedocumented in this encounter Additional Health Concerns Infection Onset Date Last Indicated Resolved Time COVID - 19 03/21/2020 04/11/2020 04/14/2020 9:09 AM CAR CHASER COVID - 19 02/09/2024 02/09/2024 02/09/2024 8:24 PM CAR CHASER Assessment Noted Time PHQ-9 Depression Total Score: 0 06/25/19 18 12:00 PM CDT documented as of this encounter Care Teams Housing Assistant Relationship Specialty Start Date End Date Fernando Rucker MD [address] [address] PCP - General Family Medicine 05/11/15 Sylvester Graves MD [address] [place] [address] Consulting Physician Neurology 06/17/23 documented as of this encounter
--- OUTSIDE RECORDS SUMMARY | 2024-08-05 14:57 | XMS_ITS | Encounter Summary ---
Author Organization [facility] Address [address] [place] [address] Phone Care Team Providers Care Bale Stacker Name Role Phone Fernando Rucker MD Primary Care Provider Sylvester Graves MD Unavailable [phone] Encounter Details Date Type Department Care Team (Late Contact Info) Description 04/11/2020 [facility] [address] [place] [address] Wendy Porras, RETAIL GIFT CARD MERCHANDISING, FLIGHT TECHNICIAN [address] [place] [address] Social History Tobacco Use Types [...] Description 12/19/2024 10:30 AM CDT [facility] [address] [place] [phone] Angela Ferrara, RETAIL GIFT CARD MERCHANDISING, PORCELAIN TURNER [address] [place] [address] documented as of this encounter Procedures Procedure Name Priority Date/Time Associated Diagnosis Comments SARS-COV-2 BY MOLECULAR Routine 04/11/2020 9:34 AM FARM OPERATIONS TECHNICAL DIRECTOR documented in this encounter Results * SARS-COV-2 BY MOLECULAR (04/11/2020 9:34 AM FARM OPERATIONS TECHNICAL DIRECTOR) SARSCOV2 NOT DETECTED (Referen ce Range for this test is Not Detected ) [facility] DX 04/12/2020 2:14 PM FARM OPERATIONS TECHNICAL DIRECTOR [facility] Comment:This test was perfor med by a PCR method. Other NASOPHARYNGEAL STRUCTURE / Unknown Non-Phlebotomy Collection / Unknown 04/11/2020 9:34 AM FARM OPERATIONS TECHNICAL DIRECTOR 04/11/2020 11:08 AM FARM OPERATIONS TECHNICAL DIRECTOR Narrative [facility] - 04/12/2020 2:14 PM FARM OPERATIONS TECHNICAL DIRECTOR Authorized Fact Sheets about this test for providers and patients are available at: https://www.fda.gov/medical-devices/daiqnygna-hvijhjtsjv-rqmzajp-devices/emergen -us e-authorizations us Wendy Porras RETAIL GIFT CARD MERCHANDISING, FLIGHT TECHNICIAN MICROBIOLOGY - GENE RAL ORDERABLES Final Result [facility] [address] [place] [address], documented in this encounter Visit Diagnoses Not on filedocumented in this encounter Additional Health Concerns Infection Onset Date Last Indicated Resolved Time COVID - 19 03/21/2020 04/11/2020 04/14/2020 9:09 AM FARM OPERATIONS TECHNICAL DIRECTOR COVID - 19 02/09/2024 02/09/2024 02/09/2024 8:24 PM FARM OPERATIONS TECHNICAL DIRECTOR Assessment Noted Time PHQ-9 Depression Total Score: 0 06/25/19 18 12:00 PM CDT documented as of this encounter Care Teams Bale Stacker Relationship Specialty Start Date End Date Fernando Rucker MD [address] [address] PCP - General Family Medicine 05/11/15 Sylvester Graves MD [address] [place] [address] Consulting Physician Neurology 06/17/23 documented as of this encounter
--- OUTSIDE RECORDS SUMMARY | 2024-08-05 14:57 | XMS_ITS | Clinical Summary ---
Author Organization [facility] Address [address] [facility] [place] [address] Care Team Providers Care Agent Name Role Phone Fernando Rucker MD Primary Care Provider [phone] Source Comments [facility],non-owned Affiliates and Associated Physician Practices is amultiple site organization consisting of ambulatory clinics and hospital sitesin [place], [place], [place] and [place]. This disclosure is being madepursuant to the Care Everywhere program and may not contain all information available regarding this patient. Last updated 17.[facility] Allergies Active Allergy Reactions Criticality Noted Date Comments Metoclopramide Unknown 08/29/2023 Nalbuphine Itching 05/11/2015 Prochlorperazine Itching,Palpitations 6 Chest tightness Promethazine Itching 05/11/2015 Sumatriptan Rash Medium 08/29/2023 Medications * Be aware that medications may not be up to date on this document. Alwaysverify current medications with the patient. albuterol (Proventil;Vent demetrius) (2.5 MG/3ML) 0.083% nebulizer solution Inhale 2.5 (two and one-half) mg by mouth every 4 hours as needed Active albuterol HFA (Proventil; Ventolin; Proair) 108 (90 Base) MCG/ACT inhaler Inhale 2 (two) puffs by mouth every 4 hours as needed 4 Active amitriptyline (Elavil) 10 MG tablet Take 2 (two) tablets by mouth at bedtime 4 Active apixaban (Eliquis) 5 MG tablet Take 1 (one) tablet by mouth 2 times daily Active atorvastatin (Lipitor) 10 MG tablet Take 1 (one) tablet by mouth once daily 4 Active butalbital-acet aminophen-caffe ine (Fioricet) 50-325-40 MG tablet Take 1 (one) tablet by mouth every 4 hours as needed FOR MIGRAINE 4 Active cyanocobalamin (Vitamin B-12) injection ADMINISTER 1 ML UNDER THE SKIN MONTHLY 4 Active vitamin D, ergocalciferol, (Drisdol) 1.25 MG (86412 UT) capsule Take 1 (one) capsule by mouth 4 Active famotidine (Pepcid) 20 MG tablet Take 2 (two) tablets by mouth once daily as needed Active Bevespi Aerosphere 9-4.8 MCG/ACT inhaler Inhale 2 (two) puffs by mouth 2 times daily 4 Active HYDROcodone-rafaela taminophen ([place]) 7.5-325 MG tablet Take 1 (one) tablet [...] MISC USE TO INJECT B12 ONCE MONTHLY 3 Active predniSONE (Deltasone) 5 MG tablet Take 1 (one) tablet by mouth once daily Active pantoprazole EC (Protonix) 40 MG tablet Take 1 (one) tablet by mouth every morning 4 Active ondansetron (Zofran) 8 MG tablet Take 1 (one) tablet by mouth every 8 hours as needed 3 Active metoprolol succinate XL 24hr (Toprol XL) 50 MG tablet Take 1 (one) tablet by mouth once daily 4 Active hydroCHLOROthia zide (Hydrodiuril) 25 MG tablet Take 1 (one) tablet by mouth once daily 90 tablet 4 4 Active Additional Information Patient not taking.Reported on 12/08/2023 Immunizations Immunization Administration Dates Next Due TDAP (7yrs+) 08/24/2023 Social History Tobacco Use Types Packs/Day Years Used Date Smoking Tobacco: Never Smokeless Tobacco: Never Comments Unknown Sex and Gender Information Value Date Recorded Sex Assigned at Not on file Legal Sex Female 9:44 AM CDT Gender Identity Not on file Sexual [...] 09/08/2023 COVID-19 VACCINE ( - season) 2023 DEPRESSION SCREENING 03/16/2024 MEDICARE AWV CALENDAR YEAR 2024 MAMMOGRAM 03/19/2024 03/19/2022, 06/2022, 01/15/2021, Additional history exists INFLUENZA VACCINE (Season Ended) 2024 Respiratory Syncytial Virus (RSV) Vaccine Pt: or [...] on patient's age to complete this topic Insurance [facility] MANAGED MEDICARE ADV * Guarantor: RAJESH MORRIS Account Type Relation to Patient Date of Phone Billing Address Personal/Family [address] [place] [address] * Guarantor: RAJESH MORRIS Account Type Relation to Patient Date of Phone Billing Address Personal/Family [address] [place] [address] * Guarantor: RAJESH MORRIS Account Type Relation to Patient Date of Phone Billing Address Personal/Family [address] [place] [address] Care Teams Agent Relationship Specialty Start Date End Date Fernando Rucker MD [address] [place] [address] [place] [address] PCP - General Family Medicine 12/04/23
--- OUTSIDE RECORDS SUMMARY | 2024-08-05 14:57 | XMS_ITS | CONTINUITY OF CARE DOCUMENT ---
Author Name soilaailynbronson Address Unknown Organization [facility] Address [address] [facility] [address] [place] [address] Phone [phone] Care Team Providers Care Power Station Operator Name Role Phone Jensen SCOTT, Kevan Unavailable DESEAN SCOTT, EVERETTE Unavailable INSURANCE PROVIDERS Payer name Policy type / Coverage type Rarden red constitution party ID [employer] Commercial insurance [facility] [id number]
--- OUTSIDE RECORDS SUMMARY | 2024-08-05 14:57 | XMS_ITS | Encounter Summary ---
Author Organization [facility] Address [address] [place] [address] Phone Care Team Providers Care Barrel Cap Setter Name Role Phone Fernando Rucker MD Primary Care Provider Sylvester Graves MD Unavailable [phone] Encounter Details Date Type Department Care Team (Late Contact Info) Description 03/28/2020 Lab [facility] Services [address] [place] [phone] Wendy Porras, IRONER HAND, HOG FEEDER [address] [place] [address] Social History Tobacco Use Types [...] Description 12/19/2024 10:30 AM CDT [facility] [place] [address] Angela Ferrara, IRONER HAND, WARP TYING MACHINE TENDER [address] [place] [address] documented as of this encounter Procedures Procedure Name Priority Date/Time Associated Diagnosis Comments SARS-COV-2 BY MOLECULAR Routine 03/28/2020 9:16 AM SPECIAL EDUCATION TEACHERS documented in this encounter Results * SARS-COV-2 BY MOLECULAR (03/28/2020 9:16 AM SPECIAL EDUCATION TEACHERS) SARSCOV2 NOT DETECTED (Referen ce Range for this test is Not Detected ) [facility] THERMOFISHER FAST DX 03/29/2020 5:21 AM SPECIAL EDUCATION TEACHERS [facility] Comment:This test was perfor med by a PCR method. Other NASOPHARYNGEAL STRUCTURE / Unknown No Phlebotomy Charged / Unknown 03/28/2020 9:16 AM SPECIAL EDUCATION TEACHERS 03/28/2020 12:02 PM SPECIAL EDUCATION TEACHERS Narrative [facility] - 03/29/2020 5:21 AM SPECIAL EDUCATION TEACHERS Authorized Fact Sheets about this test for providers and patients are available at: https://www.fda.gov/medical-devices/tqgdistwv-xbhwuktmpx-cwbewbs-devices/emergen -us e-authorizations us Wendy Porras IRONER HAND, HOG FEEDER MICROBIOLOGY - GENE RAL ORDERABLES Final Result [facility] [address] [place] [address], documented in this encounter Visit Diagnoses Not on filedocumented in this encounter Additional Health Concerns Infection Onset Date Last Indicated Resolved Time COVID - 19 03/21/2020 04/11/2020 04/14/2020 9:09 AM SPECIAL EDUCATION TEACHERS COVID - 19 02/09/2024 02/09/2024 02/09/2024 8:24 PM SPECIAL EDUCATION TEACHERS Assessment Noted Time PHQ-9 Depression Total Score: 0 06/25/19 18 12:00 PM CDT documented as of this encounter Care Teams Barrel Cap Setter Relationship Specialty Start Date End Date Fernando Rucker MD [address] [address] PCP - General Family Medicine 05/11/15 Sylvester Graves MD [address] [place] [address] Consulting Physician Neurology 06/17/23 documented as of this encounter
--- OUTSIDE RECORDS SUMMARY | 2024-08-05 14:58 | XMS_ITS | Clinical Summary ---
Author Organization [facility] Address [address] [place] [address] Care Team Providers Care Pipe Insulator Name Role Phone Fernando Rucker MD Primary Care Provider [phone] Allergies Active Allergy Reactions Criticality Noted Date [...] 1 tablet (150 mg total) by mouth early childhood coordinator before breakfast 10/12/19 24 Active folic acid [...] AM CDT - 07/28/2024 3:42 PM CDT [facility] [address] [place] [id number] Yong Mcrae MD Dizziness (Primary Dx); Nonintractable headache, unspecified chronicity pattern, unspecified headache type; Urinary tract infection in female Discharge Disposition: Discharge to home or self care 06/14/2024 1:38 PM CDT - 06/14/2024 3:25 PM CDT [facility] [address] [place] [id number] Juan Carlos Burgess MD Hypokalemia (Primary Dx); Blister of left lower leg, initial encounter Discharge Disposition: Discharge to home or self care 05/22/2024 12:43 PM CDT - 05/22/2024 6:23 PM CDT [facility] [address] [place] [id number] Yong Mcrae MD Migraine without status migrainosus, not intractable, unspecified migraine type (Primary Dx) Discharge Disposition: Discharge to home or self care 05/17/2024 10:15 AM LEARNING DESIGNER Office Visit [place] [facility] at [address] [phone] Sammi Chavez NP Diastolic dysfunction (Primary Dx); Chronic obstructive pulmonary disease, unspecified COPD type (HCC); Atrial fibrillation, unspecified type (HCC); Essential hypertension 05/10/2024 Telephone [place] [facility] at [address] [place] [phone] Sam Roldan MA from Last 3 Months Surgical History [...] drink = 0.6 oz pur e alcohol) [facility] [employer] Answer Date Recorded In the past 12 months has [employer] electric, gas, oil, or water [employer] threatened to shut off services in your [...] How often do you attend chur or hindu services? Never 02/19/2024 Do you belong to any clubs o r organizations such as sabianism groups, unions, fraternal or athletic groups, or [...] any time in the past 12 m [facility], were you homeless or living in a snf (including now)? No 02/19/2024 Personal Safety Answer Date Recorded Have you ever been in or are you currently in a harmful physical or emotional relationship or is someone making you feel afraid or unsafe? Denies 07/28/2024 Comments No Sex and Gender Information Value Date Recorded Sex Assigned at Not on file Legal Sex Female 12:11 AM LEARNING DESIGNER Gender Identity Not on file Sexual Orientation [...] 07/28/2024 11:13 AM CDT Plan of Treatment Health Maintenance Due Date Last Done Comments Colon Cancer Screening-Colonoscopy 1954 Depression Screening 1954 Hepatitis C Screening 1954 Hepatitis B Screening 1972 Pneumococcal vaccine 65+ (1 of 2 - PCV) 1973 Zoster Vaccine (1 of 2) 1973 Osteoporosis Screening-Bone Density Scan 10/15/2017 10/16/2015, 10/16/2015 Well Visit 65+ 2019 Influenza Vaccine (Season Ended) 2024 12/15/19 19, 01/05/2018 Fall Risk Assessment 02/20/2025 02/21/2024 Breast Cancer Screening-Mammogram 07/01/2025 07/01/2024, 07/01/2024, 03/19/2022, Additional history exists DTaP/Tdap/Td Vaccine (2 - Td or Tdap) [...] tendency for uric acid stone formation. Source: [facility] [employer] Current Interpretive Data was last revised [...] Reflex to microscopic UA will be performed. [facility] ([place]) Urine 07/28/2024 1:20 PM CDT 07/28/2024 1:29 PM CDT us Yong Mcrae MD LAB MICROBIOLOGY - GENERAL O RDERABLES Final Result [facility] ([place]) 1 [facility] Department [place] [address] * (ABNORMAL) Urinalysis, microscopic only (07/28/2024 1:20 PM CDT) WBC, ur 11-20(A) 0 - 5 /HPF RBC, ur 0-2 0 - 2 /HPF [facility] ([place]) Epithelial cells, squamous, ur 1-5 0 - 5 /HPF [facility] ([place]) Bacteria, ur Trace(A) [facility] ([place]) Mucous, ur Present(A) [facility] ([place]) Hyaline casts, ur 1-5 0 - 10 /LPF [facility] ([place]) Culture Reflex Comment Reflex to urine culture will be performed. [facility] ([place]) Urine 07/28/2024 1:20 PM CDT 07/28/2024 1:42 PM CDT Yong Mcrae MD LAB URINE ORDERABLES Final R esult [facility] ([place]) 1 [facility] Department [place] [address] * (ABNORMAL) Urine culture Urine (07/28/2024 1:20 PM CDT) Report Final Report: Greater than or equal to 100,000 colonies/mL of Enterococcus faecalis Plus growth of clinically insignificant bacterial tariq. (.) Comment:Testing performed by : [facility], [address] [facility] [place] [address] Organism ENTEROCOCCUS FAECALIS [facility] ([place]) Organism PLUS GROWTH OF CLINICALLY INSIGNIFICANT TARIQ. [facility] ([place]) Urine 07/28/2024 1:20 PM CDT 07/28/2024 6:52 PM CDT Narrative [facility] ([place]) - 07/30/2024 2:50 PM CDT Urine culture reflexed based upon urinalysis results. Testing performed by [facility]biology Laboratory ([phone]) Organism Antibiotic Method Susceptibility Enterococcus faecalis Ampicillin (JIE) INTERPRETATIO N Susceptible Enterococcus faecalis Vancomycin (JIE) INTERPRETATIO N Susceptible Enterococcus faecalis Linezolid (JIE) INTERPRETATIO N Susceptible Enterococcus faecalis Doxycycline (JIE) INTERPRETATIO N Resistant Enterococcus faecalis Nitrofurantoin (JIE) INTERPRETAT ION Susceptible Yong Mcrae MD LAB MICROBIOLOGY - GENERAL O RDERABLES Final Result [facility] [place]) 1 [facility] [place] [address] * XR Chest 1 Vw Portable (07/28/2024 [...] Omer Yoon M.D. CH: NADEEN Report ID: [id number] Reading Location: [id number] Procedure Note Omer Yoon Jr., MD - [...] Omer Yoon M.D. CH: NADEEN Report ID: [id number] Reading Location: [id number] Yong Mcrae MD IMG XR PROCEDURES Final [...] signed by Omer Yoon M.D. CH: NADEEN [place]: 07/28/2024 12:42 PM Report ID: [id number] Reading Location: [id number] Procedure Note Omer Yoon Jr., MD - [...] Omer Yoon M.D. CH: NADEEN Report ID: [id number] Reading Location: [id number] Yong Mcrae MD IMG CT PROCEDURES Final Resu lt * ECG 12 lead (07/28/2024 11:47 AM CDT) 07/28/2024 11:4 7 AM CDT [facility] - 07/28/2024 12:11 PM CDT Vent Rate: 71 bpm RR Interval: 838 msec NV Interval: 123 msec QRS Duration: 86 msec QT Interval: 382 msec QTC Interval: 405 msec P-R-T [place]: 33 - 54 - 62 degrees IMPRESSION: SINUS RHYTHM NORMAL ECG NO CHANGE FROM PREVIOUS TRACING NOTED Electronically Signed By: Chapin Padron MD Yong Mcrae MD ECG ORDERABLES Final Result [facility] * eGFR (07/28/2024 11:39 AM CDT) eGFR [...] LAB BLOOD ORDERABLES Final R esult [facility] ([place]) 1 [facility] [place] [address] * Differential, auto (07/28/2024 11:39 AM CDT) Neutrophil abs 6.37 1.50 - 6.50 K/cumm Imm gran abs 0.05 0.00 - 0.10 K/cumm [facility] ([place]) Lymphocyte abs 1.50 0.80 - 3.30 K/cumm [facility] ([place]) Monocyte abs 0.63 0.20 - 0.80 K/cumm [facility] ([place]) Eosinophil abs 0.13 0.00 - 0.50 K/cumm [facility] ([place]) Basophil abs 0.04 0.00 - 0.10 K/cumm [...] Lymphocyte pct 17.2 % [facility] ([place]) Comment: Interpretive Data Percent cell count reference [...] 2017. Basophil pct 0.5 % [facility] ([place]) Comment: Interpretive Data Percent cell count reference ranges are not reported, since discordance with absolute values may lead to misinterpretation of CBC data. Current Interpretive Data was last revised on 2017. Blood 07/28/2024 11:3 9 AM CDT 07/28/2024 11:43 AM CDT us Yong Mcrae MD LAB BLOOD ORDERABLES Final R esult [facility] ([place]) 1 [facility] Department [place] [address] * (ABNORMAL) CBC with auto differential (07/28/2024 11:39 AM CDT) Pathologist [facility] WBC 8.72 3.80 - 9.90 K/cumm Hgb [...] Final R esult [facility] ([place]) 1 [facility] Department [place] [address] * (ABNORMAL) Comprehensive metabolic panel (07/28/2024 11:39 AM CDT) Pathologist [facility] Sodium 141 135 - 145 mmol/L Potassium, [...] MD LAB BLOOD ORDERABLES Final R esult [facility] ([place]) 1 [facility] Department of Laboratories [place], [place] [id number] * eGFR (06/14/2024 12:46 PM CDT) eGFR [...] MD LAB BLOOD ORDERABLES Final Res ult [facility] ([place]) 1 [facility] Department [place] [address] * (ABNORMAL) Differential, auto (06/14/2024 12:46 PM [...] BLOOD ORDERABLES Final Res ult [facility] ([place]) 1 [facility] [place] [address] * (ABNORMAL) CBC with auto differential (06/14/2024 12:46 PM CDT) WBC 11.03(H) 3.80 - 9.90 K/cumm Hgb 10.1(L) 11.9 - 15.5 g/dL [facility] ([place]) Hct 34.0(L) 35.6 - 45.5 % [facility] ([place]) Plt 383 150 - 400 K/cumm [facility] ([place]) MPV 10.1 9.1 - 12.3 fL [facility] ([place]) RBC 3.80(L) 3.90 - 5.20 M/cumm [facility] ([place]) MCV 89.5 81.3 - 96.4 fL [facility] ([place]) MCH 26.6(L) 27.1 - 33.3 pg [facility] ([place]) MCHC 29.7(L) 32.3 - 35.7 g/dL [facility] ([place]) RDW CV 16.3(H) 11.1 - 14.9 % [facility] ([place]) RDW SD 53.9(H) 35.7 - 48.1 fL [facility] ([place]) NRBC abs 0.00 0.00 - 0.01 K/cumm [facility] ([place]) Blood 06/14/2024 12:4 6 PM CDT 06/14/2024 12:50 PM CDT Juan Carlos Burgess MD LAB BLOOD ORDERABLES Final Res ult [facility] ([place]) 1 [facility] Department [place] [address] * Blood culture Blood (06/14/2024 12:46 PM CDT) Report Final Report: No growth Comment:Testing performed by : [facility], [address] [facility] [place] [address] Blood 06/14/2024 12:4 6 PM CDT 06/14/2024 [...] performance characteristics have been verified by the [facility]biology Laboratory. For questions about this culture, contact the Microbiology Laboratory at [phone]. Interpretive data was last revised on 24. Juan Carlos Burgess MD LAB MICROBIOLOGY - GENERAL ORD ERABLES Final Result [facility] ([place]) 1 [facility] Department [place] [address] * Blood culture Blood (06/14/2024 12:46 PM CDT) Report Final Report: No growth Comment:Testing performed by : [facility], [address] [place]., [address] Blood 06/14/2024 12:4 6 PM CDT 06/14/2024 4:31 PM CDT Narrative [facility]) - 06/19/2024 7:00 AM CDT Collection->Peripheral 1. [...] performance characteristics have been verified by the [facility]. For questions about this culture, contact the Microbiology Laboratory at [phone]. Interpretive data was last revised on 24. Juan Carlos Burgess MD LAB MICROBIOLOGY - GENERAL ORD ERABLES Final Result [facility] ([place]) 1 [facility] [place] [address] * Magnesium (06/14/2024 12:46 PM CDT) Pathologist [facility] Magnesium 1.7 1.4 - 2.5 mg/dL Blood 06/14/2024 12:4 6 PM CDT 06/14/2024 2:42 PM CDT Joleen LOPEZ LAB BLOOD ORDERABLES Alice l Result Performing Organization Address City/[facility]/ZIP Co de Phone Number [facility] ([place]) 1 [facility] [place] [address] * (ABNORMAL) Comprehensive metabolic panel (06/14/2024 12:46 PM CDT) Pathologist [facility] Sodium 145 135 - 145 mmol/L Potassium, pl 2.9(C) 3.3 - 4.9 mmol/L [facility] ([place]) Comment:Critical Result call ed by [email or web address] at 2024-06-14 13:13:54. Result Read Back by [...] Final Res ult [facility] ([place]) 1 [facility] [place] [address] * CTA Head Neck W WO Contrast [...] CT head same day FINDINGS: INTRACRANIAL VESSELS [place]: The anterior, middle, posterior cerebral [...] Bernabe Garcia M.D. RB: FRITZ Report ID: [id number] Reading Location: [place] [address] Procedure Note Bernabe Garcia MD - 05/22/2024 [...] CT head same day FINDINGS: INTRACRANIAL VESSELS [place]: The anterior, middle, posterior cerebral [...] Bernabe Garcia M.D. RB: FRITZ Report ID: [id number] Reading Location: [place] [address] Yong Mcrae MD IMG CT PROCEDURES Final [...] tendency for uric acid stone formation. Source: [facility] [employer] Current Interpretive Data was last revised on 2017 Protein, ur ql Negative Negative [facility] ([place]) Glucose, ur ql 4+(A) Negative [facility] ([place]) Ketones, ur Negative Negative [facility] ([place]) Bilirubin, ur Negative Negative [facility] ([place]) Blood, ur Negative Negative [facility] ([place]) Urobilinogen, ur <2.0 <2.0 mg/dL [facility] ([place]) Nitrite, ur Negative Negative [facility] ([place]) Leukocyte esterase, ur Negative Negative [facility] ([place]) UA reflex comment Reflex conditions for microscopic UA and culture not met. [facility] ([place]) Urine 05/22/2024 4:04 PM CDT 05/22/2024 4:08 PM CDT us Yong Mcrae MD LAB MICROBIOLOGY - GENERAL O RDERABLES Final Result [facility] ([place]) 1 [facility] Department [place] [address] * XR Chest 1 Vw Portable (05/22/2024 [...] 2:18 PM - Electronically signed by Emeka Cuh D.O. AP: AP Report ID: [id number] Reading Location: [place] [address] Procedure Note Emeka Chu, DO - 05/22/2024 [...] Emeka Chu D.O. AP: AP Report ID: [id number] Reading Location: [place] [address] Yong Mcrae MD IMG XR PROCEDURES Final Resu lt * ECG 12 lead (05/22/2024 1:14 PM CDT) 05/22/2024 1:14 PM CDT Narrative [facility] - 05/23/2024 9:26 AM CDT Vent Rate: 86 bpm RR Interval: 695 msec NV Interval: 120 msec QRS Duration: 88 msec QT Interval: 358 msec QTC Interval: 401 msec P-R-T [place]: 38 - 61 - 65 degrees IMPRESSION: SINUS RHYTHM NORMAL ECG NO CHANGE FROM PREVIOUS TRACING NOTED Electronically Signed By: Chapin Padron MD Yong Mcrae MD ECG ORDERABLES Final Result [facility] * CT Head WO Contrast (05/22/2024 1:14 [...] Emeka Chu D.O. AP: AP Report ID: [id number] Reading Location: [id number] Procedure Note Emeka Chu, DO - 05/22/2024 [...] Emeka Chu D.O. AP: AP Report ID: [id number] Reading Location: [place] [address] Yong Mcrae MD IMG CT PROCEDURES Final [...] MD LAB BLOOD ORDERABLES Final R esult [facility] [place]) 1 [facility] [place] [address] * (ABNORMAL) Differential, auto (05/22/2024 12:50 PM CDT) Neutrophil abs 7.5(H) 1.5 - 6.5 K/cumm Imm gran abs 0.0 0.0 - 0.1 K/cumm [facility] ([place]) Lymphocyte abs 1.7 0.8 - 3.3 K/cumm [facility] ([place]) Monocyte abs 1.0(H) 0.2 - 0.8 K/cumm [facility] ([place]) Eosinophil abs 0.2 0.0 - 0.5 K/cumm [facility] ([place]) Basophil abs 0.1 0.0 - 0.1 K/cumm [facility] ([place]) Neutrophil pct 72.0 % [facility] ([place]) Comment: Interpretive Data Percent cell count reference ranges are not reported, since discordance with absolute values may lead to misinterpretation of CBC data. Current Interpretive Data was last revised on 2017. Imm gran pct 0.4 % [facility] ([place]) Comment: Interpretive Data Percent cell count reference ranges are not reported, since discordance with absolute values may lead to misinterpretation of CBC data. Current Interpretive Data was last revised on 2017. Lymphocyte pct 16.5 % [facility] ([place]) Comment: Interpretive Data Percent cell count reference ranges are not reported, since discordance with absolute values may lead to misinterpretation of CBC data. Current Interpretive Data was last revised on 2017. Monocyte pct 9.2 % [facility] ([place]) Comment: Interpretive Data Percent cell count reference ranges are not reported, since discordance with absolute values may lead to misinterpretation of CBC data. Current Interpretive Data was last revised on 2017. Eosinophil pct 1.4 % [facility] ([place]) Comment: Interpretive Data Percent cell count reference ranges are not reported, since discordance with absolute values may lead to misinterpretation of CBC data. Current Interpretive Data was last revised on 2017. Basophil pct 0.5 % [facility] ([place]) Comment: Interpretive Data Percent cell count reference ranges are not reported, since discordance with absolute values may lead to misinterpretation of CBC data. Current Interpretive Data was last revised on 2017. Blood 05/22/2024 12:5 0 PM CDT 05/22/2024 12:59 PM CDT oYng Mcrae MD LAB BLOOD ORDERABLES Final R esult [facility] ([place]) 1 [facility] [place] [address] * (ABNORMAL) CBC with auto differential (05/22/2024 [...] Final R esult [facility] ([place]) 1 [facility] [place] [address] * (ABNORMAL) Comprehensive metabolic panel (05/22/2024 12:50 [...] BLOOD ORDERABLES Final R esult [facility] ([place]) 1 [facility] [place] [address] * POCT glucose (05/22/2024 12:43 PM CDT) Glucose, POC 139 70 - 199 mg/dL Blood 05/22/2024 12:4 3 PM CDT 05/22/2024 12:43 PM CDT us Notinfile Unknown LAB POCT ORDERABLES - DEVICE F inal Result Performing Organization Address City/[facility]/ZIP Co de Phone Number [facility] ([place]) 1 [facility] [place] [address] from Last 3 Months Insurance [facility] Address: [address] [address] [facility] Address: [facility] [address] [place] [address] Advance Directives For more information, please contact: [phone] * Full Code (Latest Code Status on File) Date Activated Date Inactivated Comments 02/19/2024 6:03 PM 02/21/2024 5:09 PM * Full Code Date Activated Date Inactivated Comments 02/11/2024 7:53 AM 02/13/2024 3:37 PM Care Teams Pipe Insulator Relationship Specialty Start Date End Date Fernando Rucker MD [address] [place] [id number] PCP - General 05/25/14
--- OUTSIDE RECORDS SUMMARY | 2024-08-05 14:58 | XMS_ITS ---
Author Organization [facility] yu Address [address] [facility] [address] [place] [address] Care Team Providers Care Program Architect Name Role Phone Fernando Rucker MD Primary Care Provider Judie HallOpal Unavailable [phone] Allergies Allergen (clinical drug ingredient) Drug/Non Drug Allergy documented on EMR Reaction Allergy Type Onset Date Status metoclopramide Metoclopramide HCl Unknown Drug Allergy 11/2019 Active prochlorperazine Prochlorperazine Unknown Drug Allergy 11/2019 Active sumatriptan SUMAtriptan Unknown Drug Allergy 10/23/2019 Ac tive nalbuphine Nalbuphine Unknown Drug Allergy 10/23/2019 Acti ve promethazine Promethazine Unknown Drug Allergy 10/23/2019 Active REASON FOR VISIT Hand pain, inflammatory arthritis Medications Medication SIG (Take, Route, Frequency, Duration) Notes Start Date End Date Status Vitamin D (Cholecalciferol) 10 MCG (400 UNIT) weekly Oral Active Ondansetron 8 MG prn Oral Act elizabeth Metoprolol Succinate ER 50 MG Oral for 90 Days Active busPIRone HCl 10 MG 1 tablet Orally Twice a day Active B 12 injection - once monthly - *Reorder from [facility] for eRx and Interaction Alerts* Active predniSONE 5 MG 1 Orally daily for 30 days 08/09/2024 Active Methotrexate Sodium 2.5 MG 5 tablets Orally weekly for 90 days 10/27/2023 Active Eliquis 5 MG 1 tablet Orally Twice a day for 30 day(s) Active Lipo-Flavonoid Plus 200-100 mg ORAL *[facility] for [facility] and Interaction Alerts* Active HYDROcodone-Acetamin ophen 5-325 MG prn Oral Active Cephalexin 500 MG Oral for 10 Days Active Vital Signs Temperature 97.3 degrees Fahrenheit 06/22/19 25 Blood pressure systolic 130 mm Hg 06/22/19 25 Blood pressure diastolic 80 mm Hg 025 Heart Rate 73 /min 06/21/2024 Height 62 in 06/21/2024 Weight 164.1 lbs 06/21/2024 BMI 30.01 kg/m2 06/21/2024 Oximetry 95 % 06/21/2024 Height-cm 157.48 cm 06/21/2024 Weight-kg 74.44 kg 06/21/2024 Encounters Encounter Location Date Provider Diagnosis [facility] [address] [place] [address] 06/21/2024 Opal Hall Inflammatory arthrit is M19.90 ; SEBLE positive R76.8 ; Osteoarthritis, unspecified osteoarthritis type, unspecified site M19.90 and High risk medication use Z79.899 Assessments Encounter Date Diagnosis (ICD Code) Assessment Notes Treatment Notes Treatment Clinical Notes Section Notes 06/21/2024 Inflammatory arthritis (ICD-10 - M19.90) increase MTX to 12.5mg/wk, return in 1 month, labs at next visit 06/21/2024 SEBLE positive (ICD-10 - R76.8) increase MTX to 12.5mg/wk, return in 1 month, labs at next visit 06/21/2024 Osteoarthritis, unspecified osteoarthritis type, unspecified site (ICD-10 - M19.90) increase MTX to 12.5mg/wk, return in 1 month, labs at next visit 06/21/2024 High risk medication use (ICD-10 - Z79.899) increase MTX to 12.5mg/wk, return in 1 month, labs at next visit Plan Of Treatment Medication Medication Name Sig Start Date Stop Date Notes Methotrexate Sodium 2.5 MG 5 tablets Ora lly weekly for 90 days 10/27/2023 Next Appt Details Follow Up: 4 Weeks, Reason: Provider Name:Opal Hall, 10/21 10:45:00 AM, [address], [place], [address], Progress Notes * Monse MORRIS:[birth year] (69 yo F)Acc No.[id number]:06/21/2024 Progress Notes Patient: Monse TRUJILLO Provider: Danie HALL MD :1955 A ge:69 Y S ex:Female Date:06/21/2024 Address:[address] [place], [place] [address] Pcp:Fernando Rucker MD Subjective: * Chief Complaints: * H and painInflammatory arthritis * HPI: G eneral Follow up: on MTX 10mg/wk, R thumb hurts, R hand aches sometimes, self increased p rednisone 5mg/day, R thumb a little swollen skin tear [...] History: * Surgical History: B reast biopsy; [id number] tunnel release; [id number]; 2019-10-23 * Hospitalization/Major Diagno stic Procedure: * [...] ORAL , Notes to Pharmacist: *Reorder from [facility] for eRx and Interaction Alerts*HYDROcodone-Acetaminophen 5-325 MG Tablet prn Oral B 12 injection - once monthly - , Notes to Pharmacist: *Reorder from [facility] for eRx and Interaction Alerts*Vitamin D (Cholecalciferol) 10 MCG (400 UNIT) Capsule weekly Oral Ondansetron 8 MG Tablet Disintegrating prn Oral Metoprolol Succinate ER 50 MG Tablet Extended Release 24 Hour Oral busPIRone HCl 10 MG Tablet 1 tablet Orally Twice a day Methotrexate Sodium 2.5 MG Tablet 4 Orally weekly Cephalexin 500 MG Capsule Oral predniSONE 5 MG Tablet 1 Orally daily , stop date 08/09/2024Medication List reviewed and reconciled with the patientTaking Eliquis 5 MG Tablet 1 tablet Orally Twice a day Taking Lipo-Flavonoid Plus 200-100 mg TABLET ORAL , Notes to Pharmacist: *Reorder from [facility] for eRx and Interaction Alerts*Taking HYDROcodone-Acetaminophen 5- 325 MG Tablet prn Oral Taking B 12 injection - once monthly - , Notes to Pharmacist: *Reorder from [facility] for eRx and Interaction Alerts*Taking Vitamin D (Cholecalciferol) 10 MCG (400 UNIT) Capsule weekly Oral Taking Ondansetron 8 MG Tablet Disintegrating prn Oral Taking Metoprolol Succinate ER 50 MG Tablet Extended Release 24 Hour Oral Taking busPIRone HCl 10 MG Tablet 1 tablet Orally Twice a day Taking Methotrexate Sodium 2.5 MG Tablet 4 Orally weekly Taking Cephalexin 500 MG Capsule Oral Taking predniSONE 5 MG Tablet 1 Orally daily , stop date 08/09/2024Medication List reviewed and reconciled with the patient * Allergies: P rochlorperazine: Allergy - Onset Date 10/23/2019SUMAtriptan: Allergy - Onset Date 10/23/2019Nalbuphine: Allergy - Onset Date 10/23/2019Promethazine: Allergy - Onset Date 10/23/2019Metoclopramide HCl: Allergy - Onset Date 10/23/2019no[Allergies Verified] Objective: * Vitals: B P:130/80mm Hg, HR:73/min, Temp:97.3F, Oxygen sat %:95%, Wt:164.1lbs, Wt- k.44kg, Ht:62in, Ht-cm:157.48cm, BMI:30.01Index, Body Surface Area:1.8. * Examination: G eneral Examination: General appearance: [...] steoarthritis, unspecified osteoarthritis type, unspecified site - M1.? 4. H igh risk medication use - Z79.899 increase MTX to 12.5mg/wk, r eturn in 1 month, labs at next visit Plan: * Treatment: * Procedure Codes: * Follow Up: 4 Weeks * Billing Information: * Visit Code: 27676 Office Visit, Est Pt., Level 4. * Procedure Codes: * Sign off status: Completed true * Provider: Danie HALL MD Date: 06/21/2024 Generated for Zenai noemí/Claribel/eTransmitting on: 0 08/05/2024 02:57 PM CDT History and Physical Notes * HPI (History of Present Illness) Category Sub-Category Detail Notes Category Not es General Follow up on MTX 10mg/wk, R thumb hurts, R hand aches sometimes, self increased prednisone 5mg/day, R thumb a little swollen skin tear [...]
--- OUTSIDE RECORDS SUMMARY | 2024-08-05 14:58 | XMS_ITS | Patient Health Record ---
Author Organization [facility] yu Address [address] [address] [place] [address] Care Team Providers Care Pit Operator Name Role Phone Fernando Rucker MD Primary Care Provider Judie WinOpal Unavailable [phone] Allergies Allergen (clinical drug ingredient) Drug/Non Drug [...] Reference Range Notes CMP(COMPREHENSIVE METABOLIC PANEL) Reviewed date:10/27/2023 05:00:37 PM Interpretation: Performing Lab:[facility], [address] [facility], [place], [address] Notes/Report: Sodium 142 133-146 mmol/L Potassium 3.9 3.5-5.1 mmol/L Chloride 105 98-107 mmol/L Carbon Dioxide 26 21-31 mmol/L Anion Gap 11 4-13 mmol/L Blood Urea Nitrogen 22 7-25 mg/dL Creatinine 1.01 0.60-1.30 mg/dL eGFRcr (CKD-EPI 2020) 60 >=60 mL/min/1.73 m2 Calcium 9.7 8.3-10.5 mg/dL Glucose 129 70-100 mg/dL Protein, Total 6.8 6.4-8.3 g/dL Albumin 4.3 3.5-5.0 g/dL ALT 21 9-43 units/L Alkaline Phosphatase 85 34-104 units/L AST 22 13-39 units/L Bilirubin, Total 0.4 0.2-1.2 mg/dL CBC W/DIFF Reviewed date:10/27/2023 05:00:37 PM Interpretation: Performing Lab:[facility], [address] [facility], [place], [address] Notes/Report: WBC 10.2 3.5-10.5 10'3/uL RBC 3.33 (Based on docume nted legal sex) 3.80-5.20 10'6/uL HGB 9.1 (Based on docume nted legal sex) 11.6-15.4 g/dL HCT 31.0 (Based on docume nted legal sex) 34.0-45.0 % MCV 93.1 80.0-99.0 fL MCH 27.3 27.0-34.0 pg MCHC 29.4 32.0-35.5 g/dL RDW 16.8 11.0-15.0 % PLT 402 150-400 10'3/uL MPV 10.5 8.8-12.1 fL NRBC's 0.2 0.0 % Absolute NRBCs 0.0 No reference ran ge established 10'3/uL Neutrophils 82.6 34.0-73.0 % Lymphocytes 11.0 15.0-50.0 % Monocytes 5.1 1.0-15.0 % Eosinophils 0.4 0.0-8.0 % Basophils 0.4 0.0-2.0 % Immature Granulocytes 0.5 No defined reference range % Absolute Neutrophils 8.4 1.5-8.0 10'3/uL Absolute Lymphocytes 1.1 1.0-4.0 10'3/uL Absolute Monocytes 0.5 0.2-1.0 10'3/uL Absolute Eosinophils 0.0 0.0-0.6 10'3/uL Absolute Basophils 0.0 0.0-0.3 10'3/uL Absolute Immature Granulocytes 0.1 0.00-0.10 10'3/uL 10/27/2023 9:41 AM: P indicates partial results on a panel have been released. Additional results will follow. 10/27/2023 9:41 AM: This result has been final verified. No additional or changed results are expected. CMP(COMPREHENSIVE METABOLIC PANEL) Reviewed date:01/20/2024 11:13:50 AM Interpretation:Lab Result Generalized Performing Lab:[facility], [place], [address] Notes/Report: Sodium 145 133-146 mmol/L Potassium 3.8 3.5-5.1 mmol/L Chloride 103 98-107 mmol/L Carbon Dioxide 31 21-31 mmol/L Anion Gap 11 4-13 mmol/L Blood Urea Nitrogen 25 7-25 mg/dL Creatinine 1.00 0.60-1.30 mg/dL eGFRcr (CKD-EPI 2020) 61 >=60 mL/min/1.73 m2 Calcium 9.5 8.3-10.5 mg/dL Glucose 92 70-100 mg/dL Protein, Total 6.6 6.4-8.3 g/dL Albumin 4.1 3.5-5.0 g/dL ALT 14 9-43 units/L Alkaline Phosphatase 77 34-104 units/L AST 17 13-39 units/L Bilirubin, Total 0.4 0.2-1.2 mg/dL CBC W/DIFF Reviewed date:01/20/2024 11:13:50 AM Interpretation:Lab Result Generalized Performing Lab:[facility], [place], [address] Notes/Report: WBC 10.3 3.5-10.5 10'3/uL RBC 3.80 (Based on docume nted legal sex) 3.80-5.20 10'6/uL HGB 10.1 (Based on docume nted legal sex) 11.6-15.4 g/dL HCT 34.6 (Based on docume nted legal sex) 34.0-45.0 % MCV 91.1 80.0-99.0 fL MCH 26.6 27.0-34.0 pg MCHC 29.2 32.0-35.5 g/dL RDW 16.7 11.0-15.0 % PLT 511 150-400 10'3/uL MPV 10.4 8.8-12.1 fL NRBC's 0.2 0.0 % Absolute NRBCs 0.0 No reference ran ge established 10'3/uL Neutrophils 51.9 34.0-73.0 % Lymphocytes 32.4 15.0-50.0 % Monocytes 12.3 1.0-15.0 % Eosinophils 2.0 0.0-8.0 % Basophils 0.7 0.0-2.0 % Immature Granulocytes 0.7 No defined reference range % Absolute Neutrophils 5.4 1.5-8.0 10'3/uL Absolute Lymphocytes 3.3 1.0-4.0 10'3/uL Absolute Monocytes 1.3 0.2-1.0 10'3/uL Absolute Eosinophils 0.2 0.0-0.6 10'3/uL Absolute Basophils 0.1 0.0-0.3 10'3/uL Absolute Immature Granulocytes 0.1 0.00-0.10 10'3/uL 01/20/2024 9:34 AM: P indicates partial results on a panel have been released. Additional results will follow. 01/20/2024 9:34 AM: This result has been final verified. No additional or changed results are expected. CMP(COMPREHENSIVE METABOLIC PANEL) Reviewed date:04/20/2024 01:51:02 PM Interpretation:Lab Result Generalized Performing Lab:[facility], [address] [place], [address] Notes/Report: Sodium 137 133-146 mmol/L Potassium 3.1 [...] date:04/20/2024 01:51:02 PM Interpretation:Lab Result Generalized Performing Lab:[facility], [address] [place], [address] Notes/Report: WBC 10.2 3.5-10.5 10'3/uL RBC 3.87 [...] clinical context of the individual patient: https://labhandbook.nm.org/ [email or web address] CMP(COMPREHENSIVE METABOLIC PANEL) Reviewed date:07/22/2024 08:16:58 AM Interpretation:Lab Result Generalized Performing Lab:[facility], [address] [place] [address], [place], [address] Notes/Report: Sodium 144 133-146 mmol/L Potassium 3.6 [...] Total 0.7 0.2-1.2 mg/dL CBC W/DIFF Reviewed date:07/22/2024 08:16:58 AM Interpretation:Lab Result Generalized Performing Lab:[facility], [address] [place] [address], [address] Notes/Report: WBC 9.7 3.5-10.5 10'3/uL RBC 3.54 [...] the clinical context of the individual patient: [email or web address]://labhandbook.wi.org/ [email or web address] Reason For Referral No Information Medications Medication SIG (Take, Route, Frequency, Duration) Notes Start Date End Date Status Cephalexin 500 MG Oral for 10 Days Active Eliquis 5 MG 1 tablet Orally Twice a day for 30 day(s) Active Potassium Chloride A ctive predniSONE 5 MG 1 Orally daily for 30 days As needed 10/19/2024 Active Lipo-Flavonoid Plus 200-100 mg ORAL *Reorder from [facility] for eRx and Interaction Alerts* Active Methotrexate Sodium 2.5 MG 5 tablets Orally weekly for 90 days 10/27/2023 Active Vitamin D (Cholecalciferol) 10 MCG (400 UNIT) weekly Oral Active Ondansetron 8 MG prn Oral Act elizabeth HYDROcodone-Acetamin ophen 5-325 MG prn Oral Active B 12 injection - once monthly - *Reorder from [facility] for eRx and Interaction Alerts* Active Metoprolol Succinate ER 50 MG Oral for 90 Days Active busPIRone HCl 10 MG 1 tablet Orally Twice a day Active Problems Problem Type SNOMED Code ICD Code Onset Dates Problem Status W/U Status Risk Notes Problem 042383801 Osteoarthritis, unspecified osteoarthritis type, unspecified site (M19.90) Active confirmed Problem Inflammatory arthritis (7661868) Inflammatory arthritis (M19.90) Active confirmed Problem 980928530 Chronic anemia (D64.9) Active confirmed Vital Signs Heart Rate 81 /min 07/21/2024 Temperature 97.2 degrees Fahrenheit 07/21/2024 Height-cm 157.48 cm 07/21/2024 Blood pressure diastolic 64 mm Hg 07/21/2024 Oximetry 95 % 07/21/2024 Weight-kg 75.21 kg 07/21/2024 Height 62 in 07/21/2024 Blood pressure systolic 112 mm Hg 07/21/2024 Weight 165.8 lbs 07/21/2024 BMI 30.32 kg/m2 07/21/2024 Encounters Encounter Location Date Provider Diagnosis [facility] [address] [place] [address] 10/26/2023 Opal Du Inflammatory arthrit is M19.90 ; SEBLE positive R76.8 ; Osteoarthritis, unspecified osteoarthritis type, unspecified site M19.90 and High risk medication use Z79.899 [facility] [address] [place] [id number] 01/19/2024 Opal Du Inflammatory arthrit is M19.90 ; SEBLE positive R76.8 ; Osteoarthritis, unspecified osteoarthritis type, unspecified site M19.90 and High risk medication use Z79.899 [facility] [address] [place] [address] 04/19/2024 Opal Du Inflammatory arthrit is M19.90 ; SEBLE positive R76.8 ; Osteoarthritis, unspecified osteoarthritis type, unspecified site M19.90 and High risk medication use Z79.899 [facility] [address] [place] [address] 06/21/2024 Opal Du Inflammatory arthrit is M19.90 ; SEBLE positive R76.8 ; Osteoarthritis, unspecified osteoarthritis type, unspecified site M19.90 and High risk medication use Z79.899 [facility] [address] [place] [address] 07/21/2024 Opal Du Inflammatory arthrit is M19.90 ; SEBLE positive R76.8 ; Osteoarthritis, unspecified osteoarthritis type, unspecified site M19.90 ; High risk medication use Z79.899 and Chronic anemia D64.9 [facility] [address], [place] [address] 10/22/2023 Opal Du Inflammatory arthrit is M19.90 [facility] [address] [id number] 10/27/2023 Opal Du [facility] [address] [place] [address] 12/03/2023 Opal Win [facility] [address] [place] [address] 12/15/2023 Opal Win Inflammatory arthrit is M19.90 [facility] [address] [place] [address] 01/19/2024 Opal Win Inflammatory arthrit is M19.90 [facility] [address] [place] [address] 2024 Opal Win [facility] [address] [place] [address] 04/08/2024 Opal Win [facility] [address] [place] [address] 05/11/2024 Opal Win Inflammatory arthrit is M19.90 [facility] [address] [place] [address] 05/25/2024 Opal [facility] [address] [place] [address] 06/17/2024 Opal Win [facility] [address] [place] [address] 06/30/2024 Opal Win Assessments Encounter Date Diagnosis (ICD Code) Assessment Notes Treatment Notes Treatment Clinical Notes Section Notes 10/22/2023 Inflammatory arthritis (ICD-10 - M19.90) 10/26/2023 Inflammatory arthritis (ICD-10 - M19.90) joint pain worse, labs today, if normal, will restart MTX 12/15/2023 Inflammatory arthritis (ICD-10 - M19.90) 01/19/2024 Inflammatory arthritis (ICD-10 - M19.90) increase MTX to 10mg/wk, start a MDP, labs today, return in 2 months 01/19/2024 Inflammatory arthritis (ICD-10 - M19.90) 04/19/2024 Inflammatory arthritis (ICD-10 - M19.90) on MTX 10mg/wk, labs today, decrease prednisone to 5mg QOB, return in 3 months 05/11/2024 Inflammatory arthritis (ICD-10 - M19.90) 06/21/2024 Inflammatory arthritis (ICD-10 - M19.90) increase MTX to 12.5mg/wk, return in 1 month, labs at next visit 07/21/2024 SEBLE positive (ICD-10 - R76.8) mildly symptomatic, change prednisone to prn, continue MTX, labs today, return in 3 months 07/21/2024 Inflammatory arthritis (ICD-10 - M19.90) mildly symptomatic, change prednisone to prn, continue MTX, labs today, return in 3 months 06/21/2024 SEBLE positive (ICD-10 - R76.8) increase MTX to 12.5mg/wk, return in 1 month, labs at next visit 07/21/2024 Osteoarthritis, unspecified osteoarthritis type, unspecified site (ICD-10 - M19.90) mildly symptomatic, change prednisone to prn, continue MTX, labs today, return in 3 months 01/19/2024 SEBLE positive (ICD-10 - R76.8) increase MTX to 10mg/wk, start a MDP, labs today, return in 2 months 04/19/2024 SEBLE positive (ICD-10 - R76.8) on MTX 10mg/wk, labs today, decrease prednisone to 5mg QOB, return in 3 months 10/26/2023 SEBLE positive (ICD-10 - R76.8) joint pain worse, labs today, if normal, will restart MTX 01/19/2024 Osteoarthritis, unspecified osteoarthritis type, unspecified site (ICD-10 - M19.90) increase MTX to 10mg/wk, start a MDP, labs today, return in 2 months 10/26/2023 Osteoarthritis, unspecified osteoarthritis type, unspecified site (ICD-10 - M19.90) joint pain worse, labs today, if normal, will restart MTX 07/21/2024 High risk medication use (ICD-10 - Z79.899) mildly symptomatic, change prednisone to prn, continue MTX, labs today, return in 3 months 06/21/2024 Osteoarthritis, unspecified osteoarthritis type, unspecified site (ICD-10 - M19.90) increase MTX to 12.5mg/wk, return in 1 month, labs at next visit 04/19/2024 Osteoarthritis, unspecified osteoarthritis type, unspecified site (ICD-10 - M19.90) on MTX 10mg/wk, labs today, decrease prednisone to 5mg QOB, return in 3 months 04/19/2024 High risk medication use (ICD-10 - Z79.899) on MTX 10mg/wk, labs today, decrease prednisone to 5mg QOB, return in 3 months 06/21/2024 High risk medication use (ICD-10 - Z79.899) increase MTX to 12.5mg/wk, return in 1 month, labs at next visit 07/21/2024 Chronic anemia (ICD-10 - D64.9) mildly symptomatic, change prednisone to prn, continue MTX, labs today, return in 3 months 10/26/2023 High risk medication use (ICD-10 - Z79.899) joint pain worse, labs today, if normal, will restart MTX 01/19/2024 High risk medication use (ICD-10 - Z79.899) increase MTX to 10mg/wk, start a MDP, labs today, return in 2 months Plan Of Treatment Pending Test Test Name Order Date CBC With Differential/Platelet Chem-Comprehensive 04/09/2023 Next Appt Details Provider Name:Opal Quirino, 10/21 10:45:00 AM, [address] [facility] [address], [place], [address], Insurance Providers Payer Name Payer Address Payer Phone Subscriber Number Group Number Insured Name Patient Relationship to Insured Coverage Start Date Coverage End Date [facility] Medicare Advantage [facility] [address] [address] [place] [address] [phone] [id number] Monse Boucher Self - patient is the insured Medical (General) History Medical History History ICD Code SEBLE positive; Anemia; Colitis; Headache; Hypertension; IBS (irritable bowel syndrome); Pernicious anemia; COPD Surgical History Surgery Date(Month/Year) Breast biopsy; 2019-10-23 Carpal tunnel release; 2019-10-23 Hystectomy; 2019-10-23
--- OUTSIDE RECORDS SUMMARY | 2024-08-05 14:58 | XMS_ITS ---
Author Organization [facility] Address [address] [place] [address] [place] [address] Care Team Providers Care Executive Wellness Programs Director Name Role Phone MAGO SCOTT, KEHINDE Primary Care Provider Judie Hernandez Shamar Jing [phone] ALLERGIES Allergen (clinical drug ingredient) Drug/Non Drug Allergy documented on EMR Reaction Allergy Type Onset Date Status nalbuphine Nalbuphine itching Drug Allergy Activ e promethazine Promethazine itching Drug Allergy A ctive sumatriptan Sumatriptan rash Drug Allergy Act elizabeth REASON FOR VISIT Follow Up, Right Hand Pain MEDICATIONS Medication SIG (Take, Route, Frequency, Duration) Notes Start Date End Date Status Vitamin D3 1.25 MG (34156 UT) TAKE 1 CAPSULE BY MOUTH ONCE WEEKLY Oral for 98 Active Jardiance 10 MG TAKE 1 TABLET BY MOUTH ONCE DAILY Oral for 30 Active Pantoprazole Sodium 40 MG TAKE 1 TABLET BY MOUTH ONCE DAILY IN THE MORNING Oral for 90 Active Methotrexate Sodium 2.5 MG as directed Oral Active Ondansetron 8 MG DISSOLVE 1 TABLET IN MOUTH EVERY 12 HOURS NEEDED FOR NAUSEA AND VOMITING Oral for 15 Active Ferrous Sulfate 325 (65 Fe) MG TAKE 1 TABLET BY MOUTH DAILY. Oral for 30 Active Ipratropium-Albuterol 0.5-2.5 (3) [...] TAKE WITH LASIX. Oral for 30 Active Xqohngapva-EPJO-Wgowumgr 50-325-40 MG TAKE 1 TABLET BY MOUTH EVERY 4 HOURS NEEDED FOR MIGRAINE Oral for 1 Active Albuterol Sulfate (2.5 MG/3ML) 0.083% INHALE [...] BY MOUTH DAILY Oral for 90 Active Metoprolol Succinate ER 50 MG 1 tablet Oral Once a day Active Cyanocobalamin 1000 MCG/ML ADMINISTER 1 ML UNDER THE SKIN MONTHLY Injection for 90 Active Lisinopril 20 MG TAKE 1 TABLET BY MOUTH AT BEDTIME Oral for 90 Active Eliquis 5 MG 1 tablet Oral Twice a day Active HYDROcodone-Acetaminophen 7.5-325 MG 1 tablet as needed Orally every 6 hrs for 30 days MAY FILL 06/24/24 06/22/2024 Active Bevespi Aerosphere 9-4.8 MCG/ACT 2 puffs Inhalation Twice a day Active Amitriptyline HCl 10 MG 1 tablet at bedtime Oral Once a day Active Vitamin D (Ergocalciferol) 1.25 MG (82114 UT) 1 capsule Oral Once a day Active busPIRone HCl 10 MG 1 tablet Oral Twice a day Active Premarin 0.625 MG 1 tablet Oral Once a day Active Potassium Chloride ER 20 MEQ 1 tablet with food Orally Once a day for 30 day(s) Active Meclizine HCl 25 MG TAKE 1 TABLET BY MOUTH EVERY 8 HOURS NEEDED FOR DIZZINESS Oral for 20 Active Albuterol Sulfate HFA 108 (90 Base) MCG/ACT INHALE 2 PUFFS BY MOUTH EVERY 4 HOURS NEEDED FOR SHORTNESS OF BREATH OR WHEEZING Inhalation for 16 Active Colchicine 0.6 MG 1 tablet Oral once a day Active LORazepam 0.5 MG 1 tablet at bedtime as needed Oral Once a day Active SOCIAL HISTORY Tobacco Use: Social History Observation Description Date Details (start date - stop date) Never Smoker NA - NA Sex Assigned At : Social History Observation Description Sex Assigned At Unknown Tobacco Use/Smoking Question Answer Notes Are you a nonsmoker VITAL SIGNS Blood pressure systolic 133 mm Hg 06/23/19 25 Blood pressure diastolic 82 mm Hg 025 Heart Rate 75 /min 06/22/2024 Respiratory Rate 16 /min 06/22/2024 Height 5 ft 1 in in 06/22/2024 Weight 153 lbs 06/22/2024 BMI 28.91 kg/m2 06/22/2024 Encounters Encounter Location Date Provider Diagnosis [facility] [address] [facility] [place] [address] 06/22/2024 Shamar Hernandez Pain in joints of right hand M25.541 ; Rheumatoid arthritis, unspecified M06.9 ; Pain in joints of unspecified hand M25.549 ; Erosive (osteo)arthritis M15.4 and [facility] (current) use of opiate analgesic Z79.891 ASSESSMENTS Encounter Date Diagnosis Assessment Notes Treatment Notes Treatment Clinical Notes 06/22/2024 Pain in joints of right hand (ICD-10 - M25.541) 06/22/2024 Rheumatoid arthritis, unspecified (ICD-10 - M06.9) [...] to fully comply with the above. The [place] and [place] PDMP were reviewed and were appropriate 06/22/2024 Pain in joints of unspecified hand (ICD-10 - M25.549) 06/22/2024 Erosive (osteo)arthritis (ICD-10 - M15.4) 06/22/2024 [facility]PC (current) use of opiate analgesic (ICD-10 - Z79.891) 06/22/2024 Other The above-named patient was evaluated [...] Orally every 6 hrs for 30 days 06/22/2024 MAY FILL 06/24/24 Treatment Notes Assessment Notes Rheumatoid arthritis, unspecified [...] to fully comply with the above. The [place] and [place] PDMP were reviewed and were appropriate Other [...] Up: 4 Weeks OPV, Reas on: Provider Name:Shamarlynn sterling, 08/22/2024 09:15:00 AM, [address] [place], [address], Progress Notes * Examination Category [...]
--- OUTSIDE RECORDS SUMMARY | 2024-08-05 14:58 | XMS_ITS ---
Author Organization [facility] Address [address] [place] [address] [place] [address] Care Team Providers Care Nutrition Technician Name Role Phone MAGO SCOTT, KEHINDE Primary Care Provider Shamar Garcia Unavailable [phone] ALLERGIES Allergen (clinical drug ingredient) Drug/Non Drug [...] BY MOUTH DAILY Oral for 90 Active Csflzcedct-MMJR-Hdyacjkt 50-325-40 MG TAKE 1 TABLET BY MOUTH [...] day Active Vitamin D (Ergocalciferol) 1.25 MG (60705 UT) 1 capsule Oral Once a day [...] J209,Unavaila ble Active Vitamin D3 1.25 MG (34423 UT) TAKE 1 CAPSULE BY MOUTH ONCE [...] Date Provider Diagnosis [facility] [address] [facility] [place] [address] 05/24/2024 Shamar Hernandez Pain in joints of right hand M25.541 ; Rheumatoid arthritis, unspecified M06.9 ; Pain in joints of unspecified hand M25.549 ; Erosive (osteo)arthritis M15.4 and jail (current) use of opiate analgesic Z79.891 ASSESSMENTS [...] to fully comply with the above. 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 The [place] and [place] PDMP were reviewed and were appropriate Other [...] Provider Name:Shamar sterling, 08/22/2024 09:15:00 AM, [address] [place], [address], Progress Notes * Examination Category Sub-Category Detail [...]
--- NOTE | 2024-08-05 16:06 | P.PCNPFT_ITS ---
PFT Procedure Performed PFT Procedure Performed Spirometry with Pre/Post Bronchodilator Plethysmography (Lung Vol) Diffusing Cap (DLCO) Flow Vol Loop PFT Interpretation This is a pulmonary function test with pre and post-bronchodilator spirometry, plethysmography and diffusing capacity. The test was performed and results interpreted in accordance with the 2019 and 2005 ATS/ERS Task Force guidelines respectively using the Global Lung Function Initiative-2012 reference equations. Patient demonstrated good effort and cooperation. Reproducibility criteria were met. The quality of the pre bronchodilator spirometry maneuver was Grade C and post bronchodilator spirometry maneuver was Grade A. Of note, patient had difficulty with end- expiratory limb on pre spirometry testing. Only 1 lung volume trial obtained. Findings: Spirometry: The contour the inspiratory and expiratory flow tracing are kaylah l. The pre bronchodilator FVC is 1.55 L, 59% predicted. The pre bronchodilator FEV1 is 1.23 L, 60% predicted. The pre bronchodilator FEV1: FVC ratio 79%. The post bronchodilator FVC is 1.55 L, representing no change. The post bronchodilator FEV1 is 1.15 L, representing a 7% decrease. The post bronchodilator FEV1: FVC ratio is 74%. Plethysmography: The total lung capacity is 3.78 L, 80% predicted. The functional residual capacity is 2.31 L, 86% predicted. The residual volume is 2.17 L, 104% predicted. The residual volume: Total lung capacity ratio is 57%. Diffusing capacity: The diffusing capacity unadjusted for hemoglobin and carboxyhemoglobin is 9.4, 48% predicted. The diffusing capacity adjusted for alveolar volume is 3.05, 70% predicted. In comparison to previous pulmonary function testing on 02/09/2023 in which only spirometry and plethysmography were performed the post bronchodilator FVC is unchanged from 1.75 L to 1.55 L. The post bronchodilator FEV1 is unchanged from 1.01 L to 1.15 L. The total lung capacity is decreased from 5.29 L to 3.78 L. The functional residual capacity is decreased from 3.74 L to 2.31 L. The residual volume is decreased from 3.48 L to 2.17 L. Impression: The FEV1 is less than 80% predicted and the FEV1: FVC ratio is greater than 70% consistent with Preserved Ratio Impaired Spirometry (PRISm) with a low FVC. There is no significant improvement after inhaling a single dose of albuterol. The increase in residual volume to total lung volume ratio is consistent with hyperinflation from an obstructive abnormality. The d iffusing capacity unadjusted for hemoglobin and carboxyhemoglobin is moderately decreased and remains mildly decreased when adjusted for alveolar volume. In comparison to previous pulmonary function testing on 02/09/2023 in which only spirometry and plethysmography were performed, there was a greater than anticipated time dependent decrease in the total lung capacity, functional residual capacity and residual volume with no change in the FVC or FEV1. Clinical correlation is recommended.
== END 2024-08-05 14:54 | disposition home or self-care (01) ==
PROVIDERS: PCP Family Medicine; Visit Provider Internal Medicine Pulmonary Disease
DX: J45.909 Unspecified asthma, uncomplicated (principal); J44.9 Chronic obstructive pulmonary disease, unspecified; R94.2 Abnormal results of pulmonary function studies
CPT/HCPCS: 94060; 94726; 94729

== ENCOUNTER 2025-03-10 13:05 | Emergency (ER) | payer MEDICARE, SELFPAY ==
--- OUTSIDE RECORDS SUMMARY | 2025-01-16 15:00 | XMS_ITS ---
Author Organization [facility] Address [address] [facility] [place] [address] Phone [phone] Care Team Providers Care Film Coater Name Role Phone KEHINDE MERCEDES MD Primary Care Provider Judie Hernandez MD, [facility] [phone] Allergies Allergen (clinical drug ingredient) Drug/Non Drug Allergy documented on EMR Reaction Allergy Type Onset Date Status nalbuphine Nalbuphine itching Drug Allergy Activ e promethazine Promethazine itching Drug Allergy A ctive sumatriptan Sumatriptan rash Drug Allergy Act elizabeth REASON FOR VISIT FOLLOW UP (LAST FILL 12/17/2024) Medications Medication SIG (Take, Route, Frequency, Duration) Notes Start Date End Date Diagnosis (ICD Code) Status Vitamin D3 1.25 MG (43265 UT) Capsule TAKE 1 CAPSULE BY MOUTH ONCE WEEKLY Oral; Duration: 98 Active Jardiance 10 MG Tablet TAKE 1 TABLET BY MOUTH ONCE DAILY Oral; Duration: 30 Active Pantoprazole Sodium 40 MG Tablet Delayed Release TAKE 1 TABLET BY MOUTH ONCE DAILY IN THE MORNING Oral; Duration: 90 Active Methotrexate Sodium 2.5 MG Tablet as directed Oral Active HYDROcodone-Acetaminophe n 7.5-325 MG Tablet 1 tablet as needed Orally every 6 hrs; Duration: 30 days 12/16/2024 Rheumatoid arthritis, unspecified (ICD_10 - M06.9) Active Potassium Chloride Mag ER 20 MEQ Tablet Extended Release TAKE 1 TABLET BY MOUTH ONCE DAILY NEEDED. TAKE WITH LASIX. Oral; Duration: 30 Active Ondansetron 8 MG Tablet Disintegrating DISSOLVE 1 TABLET IN MOUTH EVERY 12 HOURS NEEDED FOR NAUSEA AND VOMITING Oral; Duration: 15 Active Ipratropium-Albuterol 0.5-2.5 (3) MG/3ML Solution USE 3 ML IN NEBULIZER 4 TIMES DAILY NEEDED FOR SHORTNESS OF BREATH Inhalation; Duration: 30 Active Furosemide 40 MG Tablet TAKE 1 TABLET BY MOUTH ONCE DAILY Oral; Duration: 30 Active buPROPion HCl ER (XL) 150 MG Tablet Extended Release 24 Hour TAKE 1 TABLET BY MOUTH IN THE MORNING Oral; Duration: 30 Active Eqfkgyddwe-DDFC-Cfbzwyqp 50-325-40 MG Tablet TAKE 1 TABLET BY MOUTH EVERY 4 HOURS NEEDED FOR MIGRAINE Oral; Duration: 1 Active Albuterol Sulfate (2.5 MG/3ML) 0.083% Nebulization Solution INHALE 1 VIAL VIA NEBULIZER EVERY 4-6 HOURS NEEDED FOR SHORTNESS OF BREATH OR WHEEZING Inhalation; Duration: 10 Active predniSONE 5 MG Tablet 1 tablet Orally Once a day; Duration: 30 day(s) 09/11/2023 Pain in joints of unspecified hand (ICD_10 - M25.549) Active hydroCHLOROthiazide 25 MG Tablet TAKE 1 TABLET BY MOUTH DAILY Oral; Duration: 90 Active Ferrous Sulfate 325 (65 Fe) MG Tablet Delayed Release TAKE 1 TABLET BY MOUTH DAILY. Oral; Duration: 30 Active Lisinopril 20 MG Tablet TAKE 1 TABLET BY MOUTH AT BEDTIME Oral; Duration: 90 Active Eliquis 5 MG Tablet 1 tablet Oral Twice a day Active Atorvastatin Calcium 10 MG Tablet TAKE 1 TABLET BY MOUTH DAILY Oral; Duration: 90 Active Metoprolol Succinate ER 50 MG Tablet Extended Release 24 Hour 1 tablet Oral Once a day Active Cyanocobalamin 1000 MCG/ML Solution ADMINISTER 1 ML UNDER THE SKIN MONTHLY Injection; Duration: 90 Active Bevespi Aerosphere 9-4.8 MCG/ACT Aerosol 2 puffs Inhalation Twice a day Active Amitriptyline HCl 10 MG Tablet 1 tablet at bedtime Oral Once a day Active Vitamin D (Ergocalciferol) 1.25 MG (67112 UT) Capsule 1 capsule Oral Once a day Active busPIRone HCl 10 MG Tablet 1 tablet Oral Twice a day Active Premarin 0.625 MG Tablet 1 tablet Oral Once a day Active Albuterol Sulfate HFA 108 (90 Base) MCG/ACT Aerosol Solution INHALE 2 PUFFS BY MOUTH EVERY 4 HOURS NEEDED FOR SHORTNESS OF BREATH OR WHEEZING Inhalation; Duration: 16 Active Colchicine 0.6 MG Tablet 1 tablet Oral once a day Active LORazepam 0.5 MG Tablet 1 tablet at bedtime as needed Oral Once a day Active Potassium Chloride ER 20 MEQ Tablet Extended Release 1 tablet with food Orally Once a day; Duration: 30 day(s) Active Meclizine HCl 25 MG Tablet TAKE 1 TABLET BY MOUTH EVERY 8 HOURS NEEDED FOR DIZZINESS Oral; Duration: 20 Active Social History Tobacco Use: Social History Observation Description Date Details (start date - stop date) Never Smoker NA - NA Sex Observation Social History Observation Description Sex Observation Female Social History Drugs/Alcohol: Social Info Question Answer Notes Alcohol Screen (Audit-C) Did you have a drink containing alcohol in the past year? No Points 0 Interpretation Negative Tobacco Use: Social Info Question Answer Notes Tobacco Use/Smoking Are you a nonsmoker Section Notes: The patient is retired. She is . The patient denies tobacco, alcohol. or illicit drug abuse. 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 The [place] PDMP were reviewed and were appropriate Next Appt Details Provider Name:Shamar Cristy sterling, 2025 11:30:00 AM, [address] [place], [address], Medical (General) History Medical History History ICD Code COPD Hypertension Anxiety Migraine Gout Anemia Insomnia Rheumatoid arthritis 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 History and Physical Notes * HPI (History of Present Illness) Category c/o Denies Symptom Duration Details Notes Catego ry Notes Pain Management Radiographic Imaging CT cervical spine done on 11/07/21 demonstrates DDD as well as bilateral facet and uncovertebral hypertrophy from C3-4 through C7-T1. DDD is most severe at C4-5. There is right foraminal stenosis at C3-4. An x-ray of the left hand done on 05/11/15 demonstrates severe erosive arthritis of all 5 digits The patient presents for a follow-up and medication refill. She presents today complaining of severe right greater than left hand pain. The patient reports her pain is associated with grasping objects. Due to severe pain, the patient reports she has been experiencing difficulty performing basic activities of daily living. The patient has tried and failed greater than 6 months conservative treatments including home exercise therapy, physical therapy, acetaminophen and NSAIDs without sustained relief. The patient continues to do physical therapy exercises and stretches at home without sustained relief. The patient is taking Garrochales 7.5/325 mg 4x/day as needed for severe pain with minimal to moderate pain relief and without significant side effects such as sedation or constipation. The patient denies any feelings of opioid addiction or dependence. The patient would like to return to the office in one month for a follow up. Assessment and Follow-up: Foll ow-up Plan documented:: Yes [facility] Quality 2020: MIPS Docume nted:: Compliant Examination Category Field Details Notes Category Notes Examination/ Pre-Anesthesia Assessment General: The patient is alert and jey ented X 3 in moderate distress secondary to pain UDS 10/19/24: compliant HEENT: Normocephalic, atrau matic. PERRL. The oropharynx [...] t Psychiatric: Mood and affect are normal Progress Notes * ZULEIMA MORRISB:1955 (69 yo F)Acc No.[id number]:01/16/2025 Progress Notes Patient: RAJESH MORRIS Provider: Shamar Hernandez MD :1955 Age:69 Y Sex:Female Date:01/16/2025 Address:[address] [place], [place] [address] Pcp:KEHINDE MERCEDES MD Subjective: * Chief Complaints: * FOLLOW UP (LAST FILL 12/17/2024) * HPI: Pain Management: The patient presents for a follow-up and medication refill. She presents today complaining of severe right greater than left hand pain. The patient reports her pain is associated with grasping objects. Due to severe pain, the patient reports she has been experiencing difficulty performing basic activities of daily living. The patient has tried and failed greater than 6 months conservative treatments including home exercise therapy, physical therapy, acetaminophen and NSAIDs without sustained relief. The patient continues to do physical therapy exercises and stretches at home without sustained relief. The patient is taking Garrochales 7.5/325 mg 4x/day as needed for severe pain with minimal to moderate pain relief and without significant side effects such as sedation or constipation. The patient denies any feelings of opioid addiction or dependence. The patient would like to return to the office in one month for a follow up. . Assessment and Follow-up: Follow-up Plan documented: Yes [facility] Quality 2020: MIPS Documented: Compliant Radiographic Imaging CT cervical spine done on 11/07/21 demonstrates DDD as well as bilateral facet and uncovertebral hypertrophy from C3-4 through C7-T1. DDD is most severe at C4-5. There is right foraminal stenosis at C3-4. An x-ray of the left hand done on 05/11/15 demonstrates severe erosive arthritis of all 5 digits. * ROS: General/Constitutional: Chills denies. Fatigue denies. Fever denies. Headache denies. Sleep disturbance denies. Weight gain denies. Weight loss denies. Allergy/Immunology: Itching denies. Rash denies. Ophthalmologic: Blurred vision denies. Diminished visual acuity denies. Endocrine: Diminished libido denies. Excessive thirst denies. Frequent urination denies. Irregular menses denies. Respiratory: Chest pain denies. Shortness of breath denies. Cardiovascular: Chest pain with exertion denies. Dizziness denies. Gastrointestinal: Abdominal pain denies. Constipation denies. Hematology: Easy bruising denies. Prolonged bleeding denies. Musculoskeletal: Neck Pain denies. Back pain denies. Muscle aches denies. Painful joints admits. Sciatica denies. Peripheral Vascular: Decreased sensation in extremities denies. Pain/cramping in legs after exertion denies. Neurologic: Balance difficulty denies. Dizziness denies. Gait abnormality denies. Paralysis denies. Tingling/Numbness denies. Psychiatric: Anxiety denies. Depressed mood denies. Difficulty sleeping denies. Substance abuse denies. Suicidal thoughts denies. * Medical History: COPD Hypertension Anxiety Migraine Gout Anemia Insomnia Rheumatoid arthritis CVA-temporary left upper and lower extremity weakness (05/2023) Medical History Verified * Surgical History: Left carpal tunnel release Surgical History verified. * Hospitalization/Major Diagno stic Procedure: SEE SURGERIES ABOVE Hospitalization Verified. * Family History: Father: , brain cancer. Mother: , diabetes mellitus, hypertension, rheumatoid arthritis, thyroid disease, uterine cancer. Family History Verified.. * Social History: Tobacco Use: Tobacco Use/Smoking Are you a nonsmoker Drugs/Alcohol: Alcohol Screen (Audit-C) Did you have a drink containing alcohol in the past year? No Points 0 Interpretation Negative Social History Verified. The patient is retired. She is . The patient denies tobacco, alcohol. or illicit drug abuse. * Medications: TakingPotassium Chloride ER 20 MEQ Tablet Extended Release 1 tablet with food Orally Once a day Potassium Chloride ER 20 MEQ Tablet Extended Release 1 tablet with food Orally Once a day 932180Ytjgxjncd HCl 25 MG Tablet TAKE 1 TABLET BY MOUTH EVERY 8 HOURS NEEDED FOR DIZZINESS Oral Meclizine HCl 25 MG Tablet TAKE 1 TABLET BY MOUTH EVERY 8 HOURS NEEDED FOR DIZZINESS Oral 242834Owudtxbwp Sulfate HFA 108 (90 Base) MCG/ACT Aerosol Solution INHALE 2 PUFFS BY MOUTH EVERY 4 HOURS NEEDED FOR SHORTNESS OF BREATH OR WHEEZING Inhalation Albuterol Sulfate HFA 108 (90 Base) MCG/ACT Aerosol Solution INHALE 2 PUFFS BY MOUTH EVERY 4 HOURS NEEDED FOR SHORTNESS OF BREATH OR WHEEZING Inhalation 269852Imnnggxnav 0.6 MG Tablet 1 tablet Oral once a day Colchicine 0.6 MG Tablet 1 tablet Oral once a day 671912ZCDvjfrut 0.5 MG Tablet 1 tablet at bedtime as needed Oral Once a day LORazepam 0.5 MG Tablet 1 tablet at bedtime as needed Oral Once a day 126283Gyaybmr Aerosphere 9-4.8 MCG/ACT Aerosol 2 puffs Inhalation Twice a day Bevespi Aerosphere 9-4.8 MCG/ACT Aerosol 2 puffs Inhalation Twice a day 941363Grhvmnbaropbj HCl 10 MG Tablet 1 tablet at bedtime Oral Once a day Amitriptyline HCl 10 MG Tablet 1 tablet at bedtime Oral Once a day 283774Yebgqyw D (Ergocalciferol) 1.25 MG (58719 UT) Capsule 1 capsule Oral Once a day Vitamin D (Ergocalciferol) 1.25 MG (73064 UT) Capsule 1 capsule Oral Once a day 858249lqgEIBhto HCl 10 MG Tablet 1 tablet Oral Twice a day busPIRone HCl 10 MG Tablet 1 tablet Oral Twice a day 479311Yatwxnkr 0.625 MG Tablet 1 tablet Oral Once a day Premarin 0.625 MG Tablet 1 tablet Oral Once a day 860137Chwyjbtcjv Succinate ER 50 MG Tablet Extended Release 24 Hour 1 tablet Oral Once a day Metoprolol Succinate ER 50 MG Tablet Extended Release 24 Hour 1 tablet Oral Once a day 676371Xhpkiblsuxoprv 1000 MCG/ML Solution ADMINISTER 1 ML UNDER THE SKIN MONTHLY Injection Cyanocobalamin 1000 MCG/ML Solution ADMINISTER 1 ML UNDER THE SKIN MONTHLY Injection 027583Ihavwlrgsr 20 MG Tablet TAKE 1 TABLET BY MOUTH AT BEDTIME Oral Lisinopril 20 MG Tablet TAKE 1 TABLET BY MOUTH AT BEDTIME Oral 762307Iediwsp 5 MG Tablet 1 tablet Oral Twice a day Eliquis 5 MG Tablet 1 tablet Oral Twice a day 152419Qlqdvyagbmlr Calcium 10 MG Tablet TAKE 1 TABLET BY MOUTH DAILY Oral Atorvastatin Calcium 10 MG Tablet TAKE 1 TABLET BY MOUTH DAILY Oral 332178Iuogitjnok-TJIL-Kupgdclz 50-325-40 MG Tablet TAKE 1 TABLET BY MOUTH EVERY 4 HOURS NEEDED FOR MIGRAINE Oral Wiaybieqod-PMBP-Apvkldfk 50-325-40 MG Tablet TAKE 1 TABLET BY MOUTH EVERY 4 HOURS NEEDED FOR MIGRAINE Oral 597583Cxfoyohzj Sulfate (2.5 MG/3ML) 0.083% Nebulization Solution INHALE 1 VIAL VIA NEBULIZER EVERY 4-6 HOURS NEEDED FOR SHORTNESS OF BREATH OR WHEEZING Inhalation Albuterol Sulfate (2.5 MG/3ML) 0.083% Nebulization Solution INHALE 1 VIAL VIA NEBULIZER EVERY 4-6 HOURS NEEDED FOR SHORTNESS OF BREATH OR WHEEZING Inhalation 752507cyftxwJNNQ 5 MG Tablet 1 tablet Orally Once a day predniSONE 5 MG Tablet 1 tablet Orally Once a day 611237bgxkmHDFCTBdrjwpmcl 25 MG Tablet TAKE 1 TABLET BY MOUTH DAILY Oral hydroCHLOROthiazide 25 MG Tablet TAKE 1 TABLET BY MOUTH DAILY Oral 793475Coazauy Sulfate 325 (65 Fe) MG Tablet Delayed Release TAKE 1 TABLET BY MOUTH DAILY. Oral Ferrous Sulfate 325 (65 Fe) MG Tablet Delayed Release TAKE 1 TABLET BY MOUTH DAILY. Oral 884124Vawsuynjlbj-Wsjvoylqb 0.5-2.5 (3) MG/3ML Solution USE 3 ML IN NEBULIZER 4 TIMES DAILY NEEDED FOR SHORTNESS OF BREATH Inhalation Ipratropium-Albuterol 0.5-2.5 (3) MG/3ML Solution USE 3 ML IN NEBULIZER 4 TIMES DAILY NEEDED FOR SHORTNESS OF BREATH Inhalation 390205Aowpwyargu 40 MG Tablet TAKE 1 TABLET BY MOUTH ONCE DAILY Oral Furosemide 40 MG Tablet TAKE 1 TABLET BY MOUTH ONCE DAILY Oral 108348ayBMQIzcz HCl ER (XL) 150 MG Tablet Extended Release 24 Hour TAKE 1 TABLET BY MOUTH IN THE MORNING Oral buPROPion HCl ER (XL) 150 MG Tablet Extended Release 24 Hour TAKE 1 TABLET BY MOUTH IN THE MORNING Oral 617976Ongwolzls Chloride Mag ER 20 MEQ Tablet Extended Release TAKE 1 TABLET BY MOUTH ONCE DAILY NEEDED. TAKE WITH LASIX. Oral Potassium Chloride Mag ER 20 MEQ Tablet Extended Release TAKE 1 TABLET BY MOUTH ONCE DAILY NEEDED. TAKE WITH LASIX. Oral 488130Rqnvkmgbibn 8 MG Tablet Disintegrating DISSOLVE 1 TABLET IN MOUTH EVERY 12 HOURS NEEDED FOR NAUSEA AND VOMITING Oral Ondansetron 8 MG Tablet Disintegrating DISSOLVE 1 TABLET IN MOUTH EVERY 12 HOURS NEEDED FOR NAUSEA AND VOMITING Oral 873801Tlsrpgt D3 1.25 MG (33597 UT) Capsule TAKE 1 CAPSULE BY MOUTH ONCE WEEKLY Oral Vitamin D3 1.25 MG (54449 UT) Capsule TAKE 1 CAPSULE BY MOUTH ONCE WEEKLY Oral 823760Djgelxukw 10 MG Tablet TAKE 1 TABLET BY MOUTH ONCE DAILY Oral Jardiance 10 MG Tablet TAKE 1 TABLET BY MOUTH ONCE DAILY Oral 242508Kwhhwmlyedsc Sodium 40 MG Tablet Delayed Release TAKE 1 TABLET BY MOUTH ONCE DAILY IN THE MORNING Oral Pantoprazole Sodium 40 MG Tablet Delayed Release TAKE 1 TABLET BY MOUTH ONCE DAILY IN THE MORNING Oral 444287Xxkkgeknncik Sodium 2.5 MG Tablet as directed Oral Methotrexate Sodium 2.5 MG Tablet as directed Oral 517186TQOZCeoiwfx-Eogsebtlbkzaw 7.5-325 MG Tablet 1 tablet as needed Orally every 6 hrs , Notes to Pharmacist: MAY FILL 12/17/24HYDROcodone-Acetaminophen 7.5-325 MG Tablet 1 tablet as needed Orally every 6 hrs , Notes to Pharmacist: MAY FILL [id number] List reviewed and reconciled with the patientTaking Potassium Chloride ER 20 MEQ Tablet Extended Release 1 tablet with food Orally Once a day Taking Meclizine HCl 25 MG Tablet TAKE 1 TABLET BY MOUTH EVERY 8 HOURS NEEDED FOR DIZZINESS Oral Taking Albuterol Sulfate HFA 108 (90 Base) MCG/ACT Aerosol Solution INHALE 2 PUFFS BY MOUTH EVERY 4 HOURS NEEDED FOR SHORTNESS OF BREATH OR WHEEZING Inhalation Taking Colchicine 0.6 MG Tablet 1 tablet Oral once a day Taking LORazepam 0.5 MG Tablet 1 tablet at bedtime as needed Oral Once a day Taking Bevespi Aerosphere 9-4.8 MCG/ACT Aerosol 2 puffs Inhalation Twice a day Taking Amitriptyline HCl 10 MG Tablet 1 tablet at bedtime Oral Once a day Taking Vitamin D (Ergocalciferol) 1.25 MG (43125 UT) Capsule 1 capsule Oral Once a day Taking busPIRone HCl 10 MG Tablet 1 tablet Oral Twice a day Taking Premarin 0.625 MG Tablet 1 tablet Oral Once a day Taking Metoprolol Succinate ER 50 MG Tablet Extended Release 24 Hour 1 tablet Oral Once a day Taking Cyanocobalamin 1000 MCG/ML Solution ADMINISTER 1 ML UNDER THE SKIN MONTHLY Injection Taking Lisinopril 20 MG Tablet TAKE 1 TABLET BY MOUTH AT BEDTIME Oral Taking Eliquis 5 MG Tablet 1 tablet Oral Twice a day Taking Atorvastatin Calcium 10 MG Tablet TAKE 1 TABLET BY MOUTH DAILY Oral Taking Acporumoni-COHP-Zzocfvxp 50-325-40 MG Tablet TAKE 1 TABLET BY MOUTH EVERY 4 HOURS NEEDED FOR MIGRAINE Oral Taking Albuterol Sulfate (2.5 MG/3ML) 0.083% Nebulization Solution INHALE 1 VIAL VIA NEBULIZER EVERY 4-6 HOURS NEEDED FOR SHORTNESS OF BREATH OR WHEEZING Inhalation Taking predniSONE 5 MG Tablet 1 tablet Orally Once a day Taking hydroCHLOROthiazide 25 MG Tablet TAKE 1 TABLET BY MOUTH DAILY Oral Taking Ferrous Sulfate 325 (65 Fe) MG Tablet Delayed Release TAKE 1 TABLET BY MOUTH DAILY. Oral Taking Ipratropium-Albuterol 0.5-2.5 (3) MG/3ML Solution USE 3 ML IN NEBULIZER 4 TIMES DAILY NEEDED FOR SHORTNESS OF BREATH Inhalation Taking Furosemide 40 MG Tablet TAKE 1 TABLET BY MOUTH ONCE DAILY Oral Taking buPROPion HCl ER (XL) 150 MG Tablet Extended Release 24 Hour TAKE 1 TABLET BY MOUTH IN THE MORNING Oral Taking Potassium Chloride Mag ER 20 MEQ Tablet Extended Release TAKE 1 TABLET BY MOUTH ONCE DAILY NEEDED. TAKE WITH LASIX. Oral Taking Ondansetron 8 MG Tablet Disintegrating DISSOLVE 1 TABLET IN MOUTH EVERY 12 HOURS NEEDED FOR NAUSEA AND VOMITING Oral Taking Vitamin D3 1.25 MG (03924 UT) Capsule TAKE 1 CAPSULE BY MOUTH ONCE WEEKLY Oral Taking Jardiance 10 MG Tablet TAKE 1 TABLET BY MOUTH ONCE DAILY Oral Taking Pantoprazole Sodium 40 MG Tablet Delayed Release TAKE 1 TABLET BY MOUTH ONCE DAILY IN THE MORNING Oral Taking Methotrexate Sodium 2.5 MG Tablet as directed Oral Taking HYDROcodone- Acetaminophen 7.5-325 MG Tablet 1 tablet as needed Orally every 6 hrs , Notes to Pharmacist: MAY FILL 12/17/24Medication List reviewed and reconciled with the patient * Allergies: Promethazine: itching - AllergyNalbuphine: itching - AllergySumatriptan: rash - AllergyyesAllergies Verified. Objective: * Examination: Examination/ Pre-Anesthesia Assessment: General: The patient is alert and oriented X 3 in moderate distress secondary to pain. HEENT: Normocephalic, atraumatic. PERRL. The oropharynx is clear. Neck: There is limited range of motion of the cervical spine to [...] within the body of the trapezius muscles bilaterally. Heart: Regular rate and rhythm. Chest: Clear to auscultation bilaterally. Abdomen: Soft and benign with normal bowel sounds throughout. Musculoskeletal and Extremities: There is diffuse tenderness to palpation about the right thumb DIP joint and crepitus with range of motion testing. There is also diffuse tenderness to palpation about the bilateral shoulders and knees. Neurological: There are no focal strength deficits in the bilateral upper and lower extremities. Skin: Clean, dry and intact. Psychiatric: Mood and affect are normal. UDS 10/19/24: compliant. Assessment: * Assessment: 1. Rheumatoid arthritis, unspecified - M06.9 (Primary) 2. Pain in joints of right hand - M25.541 3. Pain in joints of unspecified hand - M25.549 4. Erosive (osteo)arthritis - M15.4 5. terminal computer operator (current) use of opiate analgesic - Z79.891 Plan: * Treatment: * Electronic signature of Emmett Hernandez MD on 03/10/2025 at 01:07 PM SOUND PRINTER Sign off status: Pending * Provider: Shamar Hernandez MD Date: 01/16/2025 Generated for Aby dowd/Claribel/Ashlyitting on: 03/10/2025 01:07 PM SOUND PRINTER
--- NOTE | ~2025-03-10 | XR_ITS ---
XR tibia fibula RT 2V 03/10/2025 13:42 INDICATION: Right lower leg pain PROCEDURE: 2 views right tibia/fibula COMPARISON: No prior studies for comparison. FINDINGS: Fracture, dislocation or subluxation is not identified. There are corticated ossific densities adjacent to the fibular head and medial malleolus, likely related to old trauma. The soft tissues appear within normal limits. No foreign bodies are identified. IMPRESSION: 1: NO ACUTE BONE OR JOINT ABNORMALITY IDENTIFIED. Reviewed, dictated and finalized at location [facility]
--- OUTSIDE RECORDS SUMMARY | 2025-03-10 13:07 | XMS_ITS | Clinical Summary ---
Author Organization [facility] Address [address] [place] [address] Care Team Providers Care Rivet Driver Name Role Phone Fernando Rucker MD Primary Care Provider [phone] Source Comments [facility],non-owned Affiliates and Associated Physician Practices is amultiple site organization consisting of ambulatory clinics and hospital sitesin [place], [place], [place] and [place]. This disclosure is being madepursuant to the Care Everywhere program and may not contain all information available regarding this patient. Last updated 17.[facility] Allergies Active Allergy Reactions Criticality Noted Date [...] Active vitamin D, ergocalciferol, (Drisdol) 1.25 MG (07395 UT) capsule Take 1 (one) capsule by mouth 4 Active famotidine (Pepcid) 20 MG tablet Take 2 (two) tablets by mouth once daily as needed Active Bevespi Aerosphere 9-4.8 MCG/ACT inhaler Inhale 2 (two) puffs by mouth 2 times daily 4 Active HYDROcodone-rafaela taminophen (Courten[place]) 7.5-325 MG tablet Take 1 (one) tablet [...] 1:23 PM CDT Height 157.5 cm (5' 2) 12/08/2023 1:23 PM CDT Body Mass Index [...] of 2) 2004 SCREENING FOR DIABETES 09/08/2023 DEPRESSION SCREENING 03/16/2024 MEDICARE AWV CALENDAR YEAR 2024 MAMMOGRAM 03/19/2024 03/19/2022, 06/2022, 01/15/2021, Additional history exists COVID-19 VACCINE ( - 2024- season) 2024 INFLUENZA VACCINE (#1) 2024 Respiratory Syncytial Virus (RSV) Vaccine Pt: [...] patient's age to complete this topic Insurance [facility] MANAGED MEDICARE ADV * Guarantor: RAJESH MORRIS Account Type Relation to Patient Date of Phone Billing Address Personal/Family [address] [place] [address] * Guarantor: RAJESH MORRIS Account Type Relation to Patient Date of Phone Billing Address Personal/Family [address] [place] [address] * Guarantor: RAJESH MORRIS Account Type Relation to Patient Date of Phone Billing Address Personal/Family [address] [place] [address] Care Teams Rivet Driver Relationship Specialty Start Date End Date Fernando Rucker MD [address] [place] [address] [place] [id number] PCP - General Family Medicine 12/04/23
--- OUTSIDE RECORDS SUMMARY | 2025-03-10 13:07 | XMS_ITS | Clinical Summary ---
Author Organization [facility] Address [address] [place] [address] Phone Care Team Providers Care Fresco Artist Name Role Phone Fernando Rucker MD Primary Care Provider [phone] Sylvester Graves MD Unavailable [phone] Allergies Active Allergy Reactions Criticality Noted Date [...] times daily as needed for Diarrhea. Active Ergocalciferol (VITAMIN D2 PO) Take 1 [...] by mouth every morning. 09/03/19 24 Active apixaban (Eliquis) 5 MG TabletIndication s:Atrial Fibrillation Take 1 Tablet by mouth 2 times daily. Indications: Atrial Fibrillation 60 Tablet 3 09/10/19 24 Active Ferrous Sulfate 325 (65 Fe) MG Tablet Delayed Response Take 1 Tablet by mouth daily. Active predniSONE (DELTASONE) 5 MG Tablet Take 5 mg by mouth daily. rx # [id number] Active CHOLECALCIFEROL PO Take by mouth. Activ e folic acid (FOLVITE) 1 MG Tablet Take 1 mg by mouth daily. Active LORazepam (ATIVAN) 0.5 MG TabletIndication s:Vertigo Take 1 Tablet by mouth every 6 hours as needed for Other (vertigo). 4 Tablet 07/30/19 25 Active metoprolol tartrate (LOPRESSOR) 50 MG Tablet Take 50 mg by mouth daily. Active meclizine (ANTIVERT) 25 MG Tablet Take 25 mg by mouth 2 times daily as needed for Dizziness. Active atorvastatin (LIPITOR) 10 MG Tablet Take 1 Tablet by mouth daily. 90 Tablet 3 02/21/20 25 Active butalbital-aceta minophen-caffein e (FIORICET, ESGIC) 50-325-40 MG TabletIndication s:Chronic migraine w/o aura w/o status migrainosus, not intractable Take 1 Tablet by mouth every 6 hours as needed for Headaches or Migraine. 15 Tablet 02/28/20 25 Active atorvastatin (LIPITOR) 10 MG Tablet Take 1 Tablet by mouth daily. 90 Tablet 3 06/17/19 24 025 Discontin ued(Reord er) butalbital-aceta minophen-caffein e (FIORICET, ESGIC) 50-325-40 MG TabletIndication s:Chronic migraine w/o aura w/o status migrainosus, not intractable Take 1 Tablet by mouth every 6 hours as needed for Headaches or Migraine. 15 Tablet 12/28/19 25 025 Discontin ued(Reord er) Active Problems [...] foot 11/26/2016 Pain of left foot 11/26/2016 [place]ner or callus 11/26/2016 Fracture, stress, metatarsal 09/26/2015 Resolved Problems Problem Noted Date Diagnosed Date Resolved Date Acute kidney injury 05/19/2023 05/21/19 Hypokalemia 05/19/2023 05/21/2023 Leukocytosis 05/19/2023 05/21/2023 Encounters Date Type Department Care Team Description 02/23/2025 Refill [facility] - Neurology - [place] [address] [place] [address] Angela Ferrara, HELPER/DRIVER, DEVELOPMENT CHEMIST [facility] [address] [place] [address] Angela Ferrara APRN, DEVELOPMENT CHEMIST 12/27/2024 1:00 PM CDT Office Visit [facility] Neurology [facility] [address] [place] [address] Angela Ferrara, [place], DEVELOPMENT CHEMIST Vertigo (Primary Dx); Chronic migraine w/o aura w/o status migrainosus, not intractable Discharge Disposition: Discharged to home or Selfcare 12/27/2024 Travel from Last 3 Months Immunizations Immunization [...] alcohol) 1 glass of wine a month [facility] Utilities Answer Date Recorded In the past 12 months has e electric, gas, oil, or water company threatened to shut off services in your home? No 08/28/2023 Social Connection and Isolation Panel Answer Date Recorded In a typical week, how many times do you talk on the phone with family, friends, or neighbors? More than three times a week 05/19/2023 How often do you get togethe r with friends or relatives? Once a week 05/19/2023 How often do you attend chur ch or islam services? Never 05/19/2023 Do you belong to any clubs o r organizations such as religion groups, unions, fraternal or athletic groups, or [...] and heating? Not hard at all 05/19/2023 [facility] - Occupational Stress [...] place to sleep or slept in a longterm (including now)? No 05/19/2023 Housing Stability Vital Sign Answer Gm e Recorded In the last 12 months, was t here a time when you were not able to pay the mortgage or rent on time? No 08/28/2023 In the past 12 months, how m any times have you moved where you were living? 1 08/28/2023 At any time in the past 12 m [facility], were you homeless or living in a longterm (including now)? No 08/28/2023 Sexually Active Control [...] Sign Reading Time Taken Comments Blood Pressure 130/80 12/27/2024 1:12 PM CDT Pulse 92 12/27/2024 1:12 PM CDT Temperature 36.3 C (97.4 F) 12/27/2024 1:12 PM CDT Respiratory Rate 18 12/27/2024 1:12 PM CDT Oxygen Saturation 98% 12/27/2024 1:12 PM CDT Inhaled Oxygen Concentration - - Weight 78.1 kg (172 lb 3.2 oz) 12/27/2024 1:12 P M CDT Height 157.5 cm (5' 2) 12/27/2024 1:12 PM CDT Body Mass Index 31.5 12/27/2024 1:12 PM CDT Plan of Treatment Upcoming Encounters Date Type Department Care Team (Late st Contact Info) Description 03/30/2025 1:30 PM HIDE PASTER Office Visit [facility] - Neurology - [place] [address] [place] [phone] Angela Ferrara APRN, DEVELOPMENT CHEMIST [address] [place] [address] Health Maintenance Due Date Last Done Comments Pneumococcal Immunization (50+ years) (1 of 2 - PCV) 1973 Cologuard 1999 Immunochemical Fecal Occult Blood 1999 Respiratory Syncytial Virus (RSV) Immunization (Adult) (1 - Risk 50-74 years 1-dose series) 2004 Zoster Immunization (1 of 2) 2004 DEXA Bone Density 10/15/2017 10/16/2015 Medicare Initial AWV G0438 03/16/2020 Influenza Immunization (#1) 11/14/202412/14, 12/29/2019, 12/14/2018, Additional history exists SARS-COV-2 Immunization ( season) 2024 05/18/2020, 04/27/2020 Mammogram 07/01/2025 07/01/2024, 06/2022, 01/15/2021, Additional history exists Colonoscopy 03/21/2026 03/21/2016 Colorectal Cancer Screening 03/21/2026 Td Immunization Every 10 Years (Adults With 1 Tdap) 08/23/2033 08/24/2023 Hepatitis C Virus (HCV) Screening Completed 01/09/2018 DTaP/Tdap/Td Immunization Discontinued 08/24/2023 TdaP Immunization Discontinued 08/24/2023 Hepatitis B Immunization Aged Out No longer eligible based on patient's age to complete this topic Human Papillomavirus (HPV) Immunization (No Doses Required) Completed Meningococcal Immunization (ACWY) Aged Out No longer eligible based on patient's age to complete this topic Rotavirus Immunization Aged Out No lo nger eligible based on patient's age to complete this topic Procedures Procedure Name Priority Date/Time Associated Diagnosis Comments [facility] SCREENING BILATERAL DIGITAL W CAD W JACKSON Routine 07/01/2024 5:26 PM CDT Encounter for screening mammogram for malignant neoplasm of breast HEPATITIS C ANTIBODY Routine 01/09/2018 7:36 AM CDT Primary osteoarthritis of right hand Primary osteoarthritis, left hand Hyperuricemia Hypermobility syndrome [facility] BONE DENSITOMETRY AXIAL SKELETON Routine 10/16/2015 1:46 PM CDT Fracture, stress, metatarsal, left, initial encounter from Last 3 Months or Most Recently Relevant to Health Maintenance Results * [facility] SCREENING BILATERAL DIGITAL W CAD W JACKSON [...] to exams dated: 03/19/2022, 01/15/2021, [facility] BRE[facility] TISSUE:The breasts are heterogeneously dense, [...] exam. Electronically signed by: Lee andres/paulette:07/04/2024 22:25:53 Payroll Professional(s): RT Martín(Mary)(M), [facility] letter sent: Normal Exam Reading location: [place] [...] to exams dated: 03/19/2022, 01/15/2021, and 12/26/2019 [facility]. BREAST TISSUE:The breasts are heterogeneously dense, which [...] exam. Electronically signed by: Lee andres/paulette:07/04/2024 22:25:53 Payroll Professional(s): RT Martín(R)(M), [facility] letter sent: Normal Exam Reading location: [place] Mammogram BI-RADS: Category 2: Benign us Fernando Rucker MD [facility] MAMMO ORDERABLES Final Result * HEPATITIS C ANTIBODY (01/09/2018 7:36 AM CDT) hepatitis C antibody 0.11 <1 S/CO 01/09/2018 3:02 PM CDT [facility] Comment: Signal/Cutoff ratio < 0.79 is Nondetected Signal/Cutoff ratio 0.80-0.99 is Grayzone Signal/Cutoff ratio > 0.99 is Detected Supplemental assays are recommended if signal/cutoff ratio is >/=1.00. Signal/cutoff ratio result >/= 5.00 is 97% predictive of positivity for recombinant immunoblot assay (RIBA) and will be reported to the [place] [facility] Public [facility] as required. Blood specimen (specimen) Venipuncture / Unknown 01/09/2018 7:36 AM CDT 01/09/2018 8:12 AM CDT us Canelo Mckeon MD CHEMISTRY ORDERABLES Final Resu lt [facility] [address] [place] [address], [place] * [facility] BONE DENSITOMETRY AXIAL SKELETON [...] calcium, and hormone replacement therapy. COMPARISON(S): None PARAPLANNER/MODEL: [employer] (S/N [id number]) FINDINGS: AP lumbar spine L1-L4 Total BMD is 1.236 g/tb4P-goaio is 0.3 Left Hip Total BMD is 0.767 g/md1Z-hfict is -1.9 Neck BMD is 0.785 g/oz3P-esfxy is -1.8 Fracture risk assessment (FRAX): 10 [...] calcium, and hormone replacement therapy. COMPARISON(S): None PARAPLANNER/MODEL: [employer] (S/N [id number]) FINDINGS: AP lumbar spine L1-L4 Total BMD is 1.236 g/xu4I-kenfx is 0.3 Left Hip Total BMD is 0.767 g/pe4C-lejby is -1.9 Neck BMD is 0.785 g/hr5A-jdagf is -1.8 Fracture risk assessment (FRAX): 10 [...] Relevant to Health Maintenance Insurance MEDICARE C [facility] Advance Directives * Full Code (Latest Code [...] 4:56 PM 07/02/2023 2:35 PM Care Teams Fresco Artist Relationship Specialty Start Date End Date Fernando Rucker MD [address] [address] PCP - General Family Medicine 05/11/15 Sylvester Graves MD [address] [place] [address] Consulting Physician Neurology 06/17/23
--- OUTSIDE RECORDS SUMMARY | 2025-03-10 13:07 | XMS_ITS | Encounter Summary ---
Author Organization [facility] Address [address] [place] [address] Phone Care Team Providers Care Optometrist Name Role Phone Fernando Rucker MD Primary Care Provider [phone] Syvlester Graves MD Unavailable [phone] Reason for Visit * Reason Comments Medication Refill Encounter Details Date Type Department Care Team (Late st Contact Info) Description 08/17/2024 Refill [facility] - Neurology [facility] [address] [place] [address] Sylvester Graves MD [address] [place] [address] Medication Refill Social History Tobacco Use Types Packs/Day Years Used Date Smoking Tobacco: Never Smokeless Tobacco: Never Alcohol Use Standard Drinks/Week Comments Yes 0 (1 standard drink = 0.6 oz pur e alcohol) 1 glass of wine a month [facility] Utilities Answer Date Recorded In the past 12 months has [employer] electric, gas, oil, or water company threatened [...] week 05/19/2023 How often do you attend [facility] or mu-ism services? Never 05/19/2023 Do you belong to [...] and heating? Not hard at all 05/19/2023 [facility] - Occupational Stress Questionnaire Answer Date Recorded [...] place to sleep or slept in a custodial (including now)? No 05/19/2023 Housing Stability Vital [...] the past 12 m [facility], were you homeless or living in a custodial (including now)? No 08/28/2023 Sexually Active Control [...] st Contact Info) Description 03/30/2025 1:30 PM BRAKE LINING FINISHER Office Visit [facility] - Neurology [facility] [address] [place] [address] Angela Ferrara, COMMERCIAL DRONE SOFTWARE DEVELOPER, FEED MIXER HELPER [address] [place] [address] documented as of this encounter Visit Diagnoses Diagnosis Intractable migraine without aura and without status migrainosus Migraine without aura, with intractable migraine, so stated, without mention of status migrainosus documented in this encounter Additional Health Concerns Assessment Noted Time PHQ-9 Depression Total Score: 0 06/25/19 18 12:00 PM CDT documented as of this encounter Care Teams Optometrist Relationship Specialty Start Date End Date Fernando Rucker MD [address] [address] PCP - General Family Medicine 05/11/15 Sylvester Graves MD [address] [place] [address] Consulting Physician Neurology 06/17/23 documented as of this encounter
--- OUTSIDE RECORDS SUMMARY | 2025-03-10 13:08 | XMS_ITS | Encounter Summary ---
Author Organization [facility] Address [address] [place] [address] Phone Care Team Providers Care Torch Straightener And Heater Name Role Phone Fernando Rucker MD Primary Care Provider [phone] Sylvester Graves MD Unavailable [phone] Encounter Details Date Type Department Care Team (Late Contact Info) Description 04/11/2020 [facility] [address] [place] [address] Wendy Porras, SUPPLY CHAIN TECH, FRACTIONATING STILL OPERATOR [address] [place] [address] Social History Tobacco Use Types [...] Department Care Team (Late Contact Info) Description 03/30/2025 1:30 PM SENIOR PRODUCT MARKETING MANAGER [facility] [address] [place] [address] Angela Ferrara, SUPPLY CHAIN TECH, CHIEF CONTROLLER [address] [place] [address] documented as of this encounter Procedures Procedure Name Priority Date/Time Associated Diagnosis Comments SARS-COV-2 BY MOLECULAR Routine 04/11/2020 9:34 AM SENIOR PRODUCT MARKETING MANAGER documented in this encounter Results * SARS-COV-2 BY MOLECULAR (04/11/2020 9:34 AM SENIOR PRODUCT MARKETING MANAGER) SARSCOV2 NOT DETECTED (Referen ce Range for this test is Not Detected ) [facility] THERMOFISHER FAST DX 04/12/2020 2:14 PM SENIOR PRODUCT MARKETING MANAGER [facility] Comment:This test was perfor med by a PCR method. Other NASOPHARYNGEAL STRUCTURE / Unknown Non-Phlebotomy Collection / Unknown 04/11/2020 9:34 AM SENIOR PRODUCT MARKETING MANAGER 04/11/2020 11:08 AM SENIOR PRODUCT MARKETING MANAGER Narrative [facility] - 04/12/2020 2:14 PM SENIOR PRODUCT MARKETING MANAGER Authorized Fact Sheets about this test for providers and patients are available at: https://www.fda.gov/medical-devices/xggjwbokl-zkjeyfvqcz-hdixxmw-devices/emergen -us e-authorizations us Wendy Porras SUPPLY CHAIN TECH, FRACTIONATING STILL OPERATOR MICROBIOLOGY - GENE RAL ORDERABLES Final Result [facility] [address] [place] [address], documented in this encounter Visit Diagnoses Not on filedocumented in this encounter Additional Health Concerns Infection Onset Date Last Indicated Resolved Time COVID - 19 03/21/2020 04/11/2020 04/14/2020 9:09 AM SENIOR PRODUCT MARKETING MANAGER COVID - 19 02/09/2024 02/09/2024 02/09/2024 8:24 PM SENIOR PRODUCT MARKETING MANAGER Assessment Noted Time PHQ-9 Depression Total Score: 0 06/25/19 18 12:00 PM CDT documented as of this encounter Care Teams Torch Straightener And Heater Relationship Specialty Start Date End Date Fernando Rucker MD [address] [address] PCP - General Family Medicine 05/11/15 Sylvester Graves MD [address] [place] [address] Consulting Physician Neurology 06/17/23 documented as of this encounter
--- OUTSIDE RECORDS SUMMARY | 2025-03-10 13:08 | XMS_ITS | Encounter Summary ---
Author Organization [facility] Address [address] [place] [address] Phone Care Team Providers Care Lamination Machine Operator Name Role Phone Fernando Rucker MD Primary Care Provider [phone] Sylvester Graves MD Unavailable [phone] Encounter Details Date Type Department Care Team (Late Contact Info) Description 03/21/2020 [facility] [address] [place] [phone] Wendy Porras, FLEXIBLE SHAFT WINDER, JANITOR [address] [place] [address] Social History Tobacco Use Types [...] (Late Contact Info) Description 03/30/2025 1:30 PM BEE BREEDER [facility] [address] [place] [address] Angela Ferrara, FLEXIBLE SHAFT WINDER, CHIEF HOSPITAL ADMINISTRATOR [address] [place] [address] documented as of this encounter Procedures Procedure Name Priority Date/Time Associated Diagnosis Comments SARS-COV-2 BY MOLECULAR Routine 03/21/2020 9:26 AM BEE BREEDER documented in this encounter Results * SARS-COV-2 BY MOLECULAR (03/21/2020 9:26 AM BEE BREEDER) SARSCOV2 NOT DETECTED (Referen ce Range for this test is Not Detected ) [facility] THERMOFISHER FAST DX 03/22/2020 3:09 AM BEE BREEDER [facility] Comment:This test was perfor med by a PCR method. Other NASOPHARYNGEAL STRUCTURE / Unknown No Phlebotomy Charged / Unknown 03/21/2020 9:26 AM BEE BREEDER 03/21/2020 10:53 AM BEE BREEDER Narrative [facility] - 03/22/2020 3:09 AM BEE BREEDER Authorized Fact Sheets about this test for providers and patients are available at: https://www.fda.gov/medical-devices/kpcxaojod-lyuhxiwrfm-fjfynww-devices/emergen -us e-authorizations us Wendy Porras FLEXIBLE SHAFT WINDER, JANITOR MICROBIOLOGY - GENE RAL ORDERABLES Final Result [facility] [address] [place] [address], documented in this encounter Visit Diagnoses Not on filedocumented in this encounter Additional Health Concerns Infection Onset Date Last Indicated Resolved Time COVID - 19 03/21/2020 04/11/2020 04/14/2020 9:09 AM BEE BREEDER COVID - 19 02/09/2024 02/09/2024 02/09/2024 8:24 PM BEE BREEDER Assessment Noted Time PHQ-9 Depression Total Score: 0 06/25/19 18 12:00 PM CDT documented as of this encounter Care Teams Lamination Machine Operator Relationship Specialty Start Date End Date Fernando Rucker MD [address] [address] PCP - General Family Medicine 05/11/15 Sylvester Graves MD [address] [place] [address] Consulting Physician Neurology 06/17/23 documented as of this encounter
--- OUTSIDE RECORDS SUMMARY | 2025-03-10 13:08 | XMS_ITS | Clinical Summary ---
Author Organization [facility] Address [address] [place] [address] Care Team Providers Care Manager Union Name Role Phone Fernando Rucker MD Primary Care Provider [phone] Allergies Active Allergy Reactions Criticality Noted Date Comments Meclizine Dizziness High 06/23/2024 Metoclopramide Other (See comments),Flushing (skin) Low Skin crawls and get jittery Nalbuphine Other (See comments),Flushing (skin) Low Skin crawls and get jittery Prochlorperazine Other (See comments),Flushing (skin) Low Skin crawls and get jittery Promethazine Other (See comments),Flushing (skin) Low Skin crawls and get jittery Sumatriptan Other (See comments),Flushing (skin) Low Skin crawls and get jittery Medications cyanocobalamin (Vitamin B-12) 1,000 mcg/mL injection Last of month 7 Active metoprolol XL (TOPROL-XL) 50 mg extended release tablet Take 1 tablet (50 mg total) by mouth daily 30 tablet 4 Active Additional Information Patient taking differently:50 mg oralEvery morning, Reported on 02/16/2025 amitriptyline (ELAVIL) 10 mg tablet Take 2 tablets (20 mg total) by mouth nightly Active busPIRone (BUSPAR) 10 mg tablet Take 1 tablet (10 mg total) by mouth 2 (two) times a day Active cholecalcifero l (VITAMIN D-3) 50,000 unit capsule Take 1 capsule (50,000 Units total) by mouth once a week 4 Active ferrous sulfate 325 mg (65 mg of elemental iron) tablet Take 1 tablet (65 mg of elemental iron total) by mouth daily with breakfast Active methotrexate 2.5 mg tablet Take 1 tablet (2.5 mg total) by mouth 3 tablets a week 4 Active folic acid (FOLVITE) 1 mg tablet Take 1 tablet (1 mg total) by mouth daily 4 Active vitamins-lipot ropics (Lipo-Flavonoi d Plus) 200-100 mg tablet Take 1 tablet by mouth 2 (two) times a day Active albuterol HFA (PROVENTIL HFA,VENTOLIN HFA,PROAIR HFA) 90 mcg/actuation inhaler Inhale 2 puffs every 6 (six) hours as needed Active albuterol 2.5 mg /3 mL (0.083 %) nebulizer solution Take 3 mL (2.5 mg total) by nebulization every 6 (six) hours as needed Active HYDROcodone-ac etaminophen (NORCO) 7.5-325 mg per tablet Take 1 tablet by mouth every 6 (six) hours as needed 4 Active furosemide (LASIX) 40 mg tablet Take 1 tablet (40 mg total) by mouth daily 30 tablet 2 4 Active Additional Information Patient taking differently:40 mg oralDaily PRN, Reported on 02/16/2025 potassium chloride ER (KLOR-CON) 20 mEq CR tablet Take 1 tablet (20 mEq total) by mouth daily 30 tablet 4 Active Additional Information Patient taking differently:20 mEq oralDaily PRN, Reported on 02/16/2025 butalbital-rafaela taminophen-caf feine (ESGIC) 50-325-40 mg per tablet Take 1 tablet by mouth every 6 (six) hours as needed for headaches [address] (PROTONIX) 40 mg EC tablet Take 1 tablet (40 mg total) by mouth every morning Active meclizine (ANTIVERT) 25 mg tablet Take 1 tablet (25 mg total) by mouth 3 (three) times a day as needed for dizziness Active budesonide-gly copyr-formoter ol (Breztri Aerosphere) 160-9-4.8 mcg/actuation inhaler Inhale 2 puffs 2 (two) times a day Active peppermint oiL liquid as needed (migraines) Active aspirin 81 mg chewable tabletIndicati ons:coronary artery disease Take 1 tablet (81 mg total) by mouth daily 30 tablet 11 5 026 Active clopidogreL (PLAVIX) 75 mg tabletIndicati ons:coronary artery disease Take 1 tablet (75 mg total) by mouth daily 30 tablet 11 5 025 Discontin ued(Stop Taking at Discharge ) Active Problems Problem Noted Date Diagnosed Date Presence of Amulet left atrial appendage closure device 02/16/2025 Septal defect, atrial 12/28/2024 Tremor 12/20/2024 Overview (12/20/2024): left upper extremity Seasonal allergic rhinitis 12/20/2024 Reactive airway disease 12/20/2024 Migraine with aura and witho ut status migrainosus, not intractable 12/20/2024 Mixed hyperlipidemia 12/20/2024 Overview (12/20/2024): total cholesterol 160, triglycerides 76, HDL 58, LDL 87 with ratio 2.8 on 05/20/2023. Cholesterol 153, HDL 82, triglycerides 101, LDL 53 with ratio 1.9 on 11/13/2023. Cholesterol 159, triglycerides 89, HDL 57, LDL 85 on 02/20/2024. Irritable bowel syndrome wit h both constipation and diarrhea 12/20/2024 Insomnia 12/20/2024 Idiopathic chronic gout of right hand without to phus 12/20/2024 Overview (12/20/2024): Uric acid in the 6.5 on 11/25/2021. GERD (gastroesophageal reflux disease) Overview (12/20/2024): EGD 10/06/2023 with normal esophagus, mild gastritis. Fibromyalgia 12/20/2024 Chronic anxiety 12/20/2024 Benign paroxysmal positional vertigo due to bilateral vestibular disorder 12/20/2024 Rheumatoid arthritis 12/20/2024 Arthritis 12/20/2024 Anemia 12/20/2024 Overview (12/20/2024): Hemoglobin normal at 14.3 with vitamin B12 770 and folic acid 11.3 with iron 217 on 11/25/2021. Hemoglobin 13.3, iron 149, vitamin B12 612, folic acid 12.1 on 09/24/2022. Hemoglobin 11.7 on 05/21/2023. hemoglobin 12.8 on 05/29/2023. hemoglobin 10.6 on 07/06/2023. hemoglobin 8.4 on 08/29/2023. Hemoglobin 10.1 on 11/13/2023. Hemoglobin 9.7 on 02/20/2024. Atrial fibrillation 12/07/2024 Contraindication to anticoagulation therapy 11/15 Vascular dementia with depressed mood 07/29/2024 Hypokalemia due to loss of potassium 02/19/2024 COPD exacerbation 02/10/2024 Renal insufficiency 09/18/2023 Overview (12/20/2024): BUN 43, creatinine 1.97, GFR 27 In the ER on 09/18/2023. possible dehydration. BUN 31, creatinine 0.92, GFR greater than 60 on 11/13/2023. BUN 22, creatinine 1.0, GFR 61 on 07/13/2024. Acute metabolic encephalopathy 08/28/2023 Gait disturbance 08/28/2023 Frequent falls 08/27/2023 TIA (transient ischemic attack) 05/26/2023 CVA (cerebral vascular accident) 05/19/2023 Overview (12/20/2024): Left-sided weakness and slurred speech with vertigo 05/19/2023. CTA of head and neck 05/19/2023 with chronic multiple small cortical infarcts right parietal and posterior frontal areas. MRI without contrast 05/20/2023 with chronic microvascular ischemic type infarcts. CT of the brain 02/20/2024 with encephalomalacia right parietal area with hematoma. Anxiety and depression 05/19/2023 Diastolic dysfunction 04/10/2023 Chronic obstructive pulmonary disease 04/10/2023 Pulmonary hypertension 04/10/2023 Essential hypertension 04/10/2023 Vertigo 04/10/2023 Persistent dyspnea after COVID-19 03/24/2022 Overview (12/20/2024): with abnormal CT of the chest 02/02/2022.Repeat high-resolution CT of the chest on 04/17/2022 revealed resolution of previously described infectious changes. Normal CT with old granulomatous changes noted. B12 injections - at home 05/25/2014 Overview (06/19/2016): B12 injections - at home Encounters Date Type Department Care Team Description 02/16/2025 6:39 AM MAJOR APPLIANCE ASSEMBLY SUPERVISOR - 02/16/2025 11:59 PM MAJOR APPLIANCE ASSEMBLY SUPERVISOR Hospital Encounter [facility] Cardiology [address] [place] [id number] Chapin Padron MD Presence of Amulet left atrial appendage closure device [Z95.818] (Primary Dx); Paroxysmal atrial fibrillation (HCC) Discharge Disposition: Discharge to home or self care 02/07/2025 10:45 AM MAJOR APPLIANCE ASSEMBLY SUPERVISOR Office Visit [place] at [address] [place] [phone] Chapin Padron MD Paroxysmal atrial fibrillation (HCC) (Primary Dx); Chronic obstructive pulmonary disease, unspecified COPD type (HCC) 02/07/2025 Orders Only [place] [facility] at [address] [place] [phone] Chapin Padron MD Paroxysmal atrial fibrillation (HCC) (Primary Dx) 01/16/2025 3:45 PM MAJOR APPLIANCE ASSEMBLY SUPERVISOR Office Visit [facility] [place] [address] [place] [phone] Saray Massey NP Skin tear of right forearm without complication, initial encounter (Primary Dx) 01/09/2025 12:09 PM CDT - 01/09/2025 4:01 PM CDT Emergency [facility] Emergency Department [address] [place] [address] Gutierrez Benoit MD Purpura, nonthrombocytopenic (Primary Dx); Presence of Watchman left atrial appendage closure device Discharge Disposition: Discharge to home or self care 01/09/2025 Telephone [place] [facility] at [address] [place] [phone] Sammi Chavez NP 01/03/2025 Telephone [place] [facility] [address] [place] [phone] Perla Lazo 12/28/2024 9:08 AM CDT Anesthesia Event [facility] [address] [place] [phone] Bowen Donovan MD Eldin, Ali S., MD 12/28/2024 9:00 AM CDT - 12/28/2024 10:30 AM CDT Surgery [facility] [address] [place] [address] Chapin Padron MD PERC FRIDA CLOSE W/IMPLANT [id number] 12/28/2024 5:39 AM CDT - 12/29/2024 1:46 PM CDT Hospital Encounter [address] [address] Chapin Padron MD Paroxysmal atrial fibrillation (HCC) [I48.0] (Primary Dx); Atrial fibrillation (HCC); Contraindication to anticoagulation therapy Discharge Disposition: Discharge to home or self care 12/26/2024 Telephone [place] [facility] [address] [place] [phone] Cece Harris MA 12/22/2024 1:58 PM CDT - 12/22/2024 11:59 PM CDT Hospital Encounter [facility] [address] [place] [phone] Paroxysmal atrial fibrillation (HCC) Discharge Disposition: Discharge to home or self care 12/21/2024 Documentation [facility] Pre Anesthesia Testing [address] [place] [phone] Abiola Horne RN 12/20/2024 12:15 PM CDT Pre-Admission Testing [facility] Pre [facility]esthesia Testing [id number] [place] [address] from Last 3 Months Immunizations Immunization Administration Dates Next Due Influenza, Quadrivalent, Split, Intramuscular ,12/14/2018 Influenza, Quadrivalent, Spl it, Preservative Free, Intramuscular 12/14/2018,01/05/2018 Pfizer SARS-CoV-2 Monovalent Vaccination (12+ Yrs) PURPLE 05/18/2020,04/27/2020 Tdap 08/24/2023 Surgical History Surgery Date Site/Laterality Comments CARPAL TUNNEL RELEASE Left Carpal tunnel release BREAST BIOPSY breast biopsy HYSTERECTOMY hysterectomy COLONOSCOPY APPENDECTOMY w/ hysterectomy IMPLANTABLE CARDIAC DEVICE 12/28/2024 N/A Procedure: PERC FRIDA CLOSE W/IMPLANT [id number]; Surgeon: Chapin Padron MD; 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 Medical History Medical History Date Comments Anemia Anemia Hypertension Hypertension Atrial fibrillation (HCC) CVA (cerebral vascular accident) (HCC) COPD (chronic obstructive pulmonary disease) Migraines Diastolic dysfunction Pulmonary hypertension (HCC) Contraindication to anticoagulation therapy Vertigo Hypokalemia due to loss of potassium COPD exacerbation (HCC) PONV (postoperative nausea and vomiting) Hyperlipidemia GERD (gastroesophageal reflux disease) Arthritis RA (rheumatoid arthritis) Fibromyalgia Anxiety and depression Family History Medical History Relation Name Comments Hypertension Other 1 Family history of Hypertension; Cancer Other 2 Family history of cancer; Diabetes Other 3 Family history of diabetes; Arthritis Other 4 Family history of arthritis; Relation Name Status Comments Father Mother Other 1 Other 2 Other 3 Other 4 Social History Tobacco Use Types Packs/Day Years Used Date Smoking Tobacco: Never Smokeless Tobacco: Never Tobacco Cessation:Counseling Given: Not Answered Alcohol Use Standard Drinks/Week Comments Not Currently 0 (1 standard drink = 0.6 oz pur e alcohol) Social Connection and Isolation Panel Answer Date Recorded In a typical week, how many times do you talk on the phone with family, friends, or neighbors? More than three times a week 02/19/2024 How often do you get togethe r with friends or relatives? Once a week 02/19/2024 How often do you attend [facility] or yazidi services? Never 02/19/2024 Do you belong to any clubs o r organizations such as islam groups, unions, fraternal or athletic groups, or school groups? No 02/19/2024 How often do you attend meet ings of the clubs or organizations you belong to? Never 02/19/2024 Are you , , di vorced, , never , or living with a partner? 02/19/2024 Overall Financial Resource Strain (CARDIA) Answe r Date Recorded How hard is it for you to pa y for the very basics like food, housing, medical care, and heating? Not hard at all 02/19/2024 PRAPARE - Transportation Answer Date Re [...] in the past 12 m [facility], were you homeless or living in a chcf (including now)? No 02/19/2024 Social Connection and Isolation Panel Answer Date Recorded In a typical week, how many times do you talk on the phone with family, friends, or neighbors? More than three times a week 12/29/2024 How often do you get togethe r with friends or relatives? More than three times a week 12/29/2024 How often do you attend chur ch or yazidi services? Never 12/29/2024 Do you belong to any clubs o r organizations such as islam groups, unions, fraternal or athletic groups, or school groups? Yes 12/29/2024 How often do you attend meet ings of the clubs or organizations you belong to? More than 4 times per year 12/29/2024 Are you , , di vorced, , never , or living with a partner? 12/29/2024 AUDIT-C Answer Date Recorded Frequency of Alcohol Consumption Not on file 12/28/2024 Q2: How many drinks containi ng alcohol do you have on a typical day when you are drinking? Patient does not drink Frequency of Binge Drinking Not on file 12/14 Overall Financial Resource Strain (CARDIA) Answe r Date Recorded How hard is it for you to pa y for the very basics like food, housing, medical care, and heating? Not hard at all 12/29/2024 Hunger Vital Sign Answer Date Recorded Within the past 12 months, y ou worried that your food would run out before you got the money to buy more. Never true 12/30/19 25 Within the past 12 months, t he food you bought just didn't last and you didn't have money to get more. Never true 12/29/2024 PRAPARE - Transportation Answer Date Re corded In the past 12 months, has l ack of transportation kept you from medical appointments or from getting medications? No 12/14 In the past 12 months, has l ack of transportation kept you from meetings, work, or from getting things needed for daily living? No 12/29/2024 Housing Stability Vital Sign Answer Gm e Recorded In the last 12 months, was t here a time when you were not able to pay the mortgage or rent on time? No 12/29/2024 In the past 12 months, how m any times have you moved where you were living? 0 12/29/2024 At any time in the past 12 m [facility], were you homeless or living in a chcf (including now)? No 12/29/2024 [facility] Utilities Answer Date Recorded In the past 12 months has [facility] [employer], gas, oil, or water [employer] threatened to shut off services in your home? No 12/29/2024 Personal Safety Answer Date Recorded Have you ever been in or are you currently in a harmful physical or emotional relationship or is someone making you feel afraid or unsafe? Denies 02/16/2025 Comments No Sex and Gender Information Value Date Recorded Sex Assigned at Not on file Legal Sex Female 12:11 AM MAJOR APPLIANCE ASSEMBLY SUPERVISOR Gender Identity Not on file Sexual Orientation Not on file Last Filed Vital Signs Vital Sign Reading Time Taken Comments Blood Pressure 149/65 02/16/2025 10:35 AM MAJOR APPLIANCE ASSEMBLY SUPERVISOR Pulse 81 02/16/2025 10:35 AM MAJOR APPLIANCE ASSEMBLY SUPERVISOR Temperature 36.4 C (97.6 F) 02/16/2025 7:26 AM MAJOR APPLIANCE ASSEMBLY SUPERVISOR Respiratory Rate 16 02/16/2025 10:35 AM MAJOR APPLIANCE ASSEMBLY SUPERVISOR Oxygen Saturation 99% 02/16/2025 10:35 AM MAJOR APPLIANCE ASSEMBLY SUPERVISOR Inhaled Oxygen Concentration - - Weight 67.1 kg (148 lb) 02/16/2025 7:26 AM MAJOR APPLIANCE ASSEMBLY SUPERVISOR Height 157.5 cm (5' 2) 02/16/2025 7:26 AM MAJOR APPLIANCE ASSEMBLY SUPERVISOR Body Mass Index 27.07 02/16/2025 7:26 AM MAJOR APPLIANCE ASSEMBLY SUPERVISOR Plan of Treatment Health Maintenance Due Date Last Done Comments Colon Cancer Screening-Colonoscopy 1954 Depression Screening 1954 Hepatitis C Screening 1954 Hepatitis B Screening 1972 Pneumococcal vaccine 65+ (1 of 2 - PCV) 1973 Zoster Vaccine (1 of 2) 1973 Osteoporosis Screening-Bone Density Scan 10/15/2017 10/16/2015, 10/16/2015 Well Visit 65+ 2019 Covid-19 Vaccine (3 - Pfizer risk series) 06/15/2020 05/18/2020, 04/27/2020 Influenza Vaccine (#1) 2024 , 12/14/2018, 12/14/2018, Additional history exists Breast Cancer Screening-Mammogram 07/01/2025 07/01/2024, 07/01/2024, 03/19/2022, Additional history exists Fall Risk Assessment 12/29/2025 12/29/2024 DTaP/Tdap/Td Vaccine (2 - Td or Tdap) 08/23/2033 08/24/2023 Medical Devices Implanted Type Area Slicer Machine Operator Device Identifier Shelf Expiration Date Model / Serial / Lot Black Vascular Occluder Cvasc Frida Flexible Braided Amplatzer Amulet 18mm Nitinol [id number] - [id number] Implanted:Qty: 1 on 12/28/2024 by Chapin Padron MD at [facility] 10/13/2026 [id number] Procedures Procedure Name Priority Date/Time Associated Diagnosis Comments TRANSESOPHAGEAL ECHO (CRISTIANE) W DOPPLER/CF WO CONTRAST Routine 02/16/2025 8:57 AM MAJOR APPLIANCE ASSEMBLY SUPERVISOR Paroxysmal atrial fibrillation (HCC) LACERATION REPAIR Routine 01/16/2025 9:0 1 PM MAJOR APPLIANCE ASSEMBLY SUPERVISOR Skin tear of right forearm without complication, initial encounter EGFR STAT 01/09/2025 3:07 PM CDT DIFFERENTIAL AUTO STAT 01/09/2025 3:0 7 PM CDT APTT STAT 01/09/2025 3:07 PM CDT PROTIME-INR STAT 01/09/2025 3:07 PM CDT COMPREHENSIVE METABOLIC PANEL STAT 01/09/2025 3:07 PM CDT CBC WITH AUTO DIFFERENTIAL STAT 01/09/2025 3:07 PM CDT TRANSTHORACIC ECHO (TTE) LIMITED/FOLLOW UP W LTD DOPPLER/CF WO CONTRAST Routine 12/29/2024 7:39 AM CDT ECG 12-LEAD Routine 12/29/2024 7:21 AM CDT EGFR Routine 12/29/2024 6:27 AM CDT DIFFERENTIAL AUTO Routine 12/29/2024 6:2 7 AM CDT APTT Routine 12/29/2024 6:27 AM CDT PROTIME-INR Routine 12/29/2024 6:27 AM CDT CBC WITH AUTO DIFFERENTIAL Routine 12/29/2024 6:27 AM CDT PRO B-TYPE NATRIURETIC PEPTIDE Routine 12/29/2024 6:27 AM CDT COMPREHENSIVE METABOLIC PANEL Routine 12/29/2024 6:27 AM CDT MAGNESIUM Routine 12/29/2024 6:27 AM CDT XR CHEST 1 VIEW Routine 12/29/2024 5:30 AM CDT XR CHEST 1 VIEW Routine 12/28/2024 11:09 AM CDT TRANSESOPHAGEAL ECHO (CRISTIANE) W DOPPLER/CF WO CONTRAST Routine 12/28/2024 10:00 AM CDT PERC FRIDA CLOSURE W/IMPLANT (WATCHMAN) [id number] Routine 12/28/2024 9:34 AM CDT Atrial fibrillation (HCC) Contraindication to anticoagulation therapy POCT ACTIVATED CLOTTING TIME, HIGH RANGE Routine 12/28/2024 9:29 AM CDT ND AN ELECTIVE ENDOTRACHEAL AIRWAY Routine 12/28/2024 9:24 AM CDT B CHECK SAMPLE STAT 12/28/2024 6:50 AM CDT POTASSIUM, WHOLE BLOOD STAT 12/28/2024 6:14 AM CDT PREPARE RBC STAT 12/28/2024 5:[address] HEART MORPHOLOGY W CONTRAST Schedule Routine, Read Routine (OP Routine) 12/22/2024 3:23 PM CDT Paroxysmal atrial fibrillation (HCC) EGFR Routine 12/20/2024 1:55 PM CDT DIFFERENTIAL AUTO Routine 12/20/2024 1:5 5 PM CDT APTT Routine 12/20/2024 1:55 PM CDT PROTIME-INR Routine 12/20/2024 1:55 PM CDT COMPREHENSIVE METABOLIC PANEL Routine 12/20/2024 1:55 PM CDT CBC WITH AUTO DIFFERENTIAL Routine 12/20/2024 1:55 PM CDT TYPE AND SCREEN Timed 12/20/2024 1:45 PM CDT ECG 12-LEAD Routine 12/20/2024 1:22 PM CDT from Last 3 Months Results * TRANSESOPHAGEAL ECHO (CRISTIANE) W DOPPLER/CF WO CONTRAST (02/16/2025 8:57 AM MAJOR APPLIANCE ASSEMBLY SUPERVISOR) Anatomical Region Laterality Modality Ultrasound 02/17/2025 Narrative 02/18/2025 10:59 AM MAJOR APPLIANCE ASSEMBLY SUPERVISOR [place] Job ID: [id number] [place] Document ID: [id number] Dictated date/time: [id number] TRANSESOPHAGEAL ECHOCARDIOGRAM A 69-year-old had implant of left atrial appendage occluder. Referred for a follow-up transesophageal echo study. After obtaining informed consent, patient was brought to the cardiac quality assurance lab technician area. Noninvasive blood pressure, heart rate and oxygen saturation monitoring was applied. Topical anesthesia was applied to posterior oropharynx. Conscious sedation was administered by the quality assurance lab technician staff under my supervision. A total of 7 mg of Versed and 200 mcg of fentanyl were given in divided doses. See procedure log for further details. Total sedation time was 24 minutes. The probe was passed without difficulty. Full study including 2D, color-flow and spectral Doppler was performed. Adequate images were obtained and procedure was well tolerated. FINDINGS 1. Amulet left atrial appendage occluder device in place. There was no evidence of color flow around it. There was no evidence of device or evidence of thrombosis. 2. Anatomically normal mitral valve with moderate mitral regurgitation and normal pulmonary vein flow pattern. 3. The aortic valve was anatomically normal. 4. Normal left ventricular systolic function with left ventricular hypertrophy. 5. The interatrial septum contained a small defect with lorb-[id number] color flow consistent with prior transseptal puncture. Bubble study was negative. 6. The aorta was smooth and anatomically normal. 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 Plavix can be discontinued and patient maintained on aspirin only. Chapin Padron MD Job ID/Internal Job ID: [id number] Chapin Padron MD CV ECHO PROCEDURES Final Result * Laceration Repair (01/16/2025 9:01 PM MAJOR APPLIANCE ASSEMBLY SUPERVISOR) Narrative Saray Massey NP - 01/16/2025 9:01 PM MAJOR APPLIANCE ASSEMBLY SUPERVISOR Saray Massey NP 01/16/2025 9:08 PM Laceration Repair Date/Time: 01/16/2025 9:01 PM Performed by: Saray Massey NP Authorized by: Saray Massey NP Consent: Consent obtained: Verbal Consent given by: Patient Risks, benefits, and alternatives were discussed: yes Risks discussed: Infection and poor wound healing Alternatives discussed: No treatment [place] protocol: Site/side marked: yes Immediately prior to procedure, a time out was called: yes Patient identity confirmed: Verbally with patient Anesthesia: Anesthesia method: None Laceration details: Location: Shoulder/arm Shoulder/arm location: R lower arm Length (cm): 2 Depth (mm): 1 Exploration: Hemostasis achieved with: Direct pressure Wound exploration: entire depth of wound visualized Treatment: Area cleansed with: Shkenyatta-Clebutch Amount of cleaning: Standard Irrigation solution: Sterile saline Irrigation volume: 10 ml Irrigation method: Syringe Visualized foreign bodies/material removed: no Debridement: None Skin repair: Repair method: Steri-Strips Number of Steri-Strips: 3 Approximation: Approximation: Close Repair type: Repair type: Simple Post-procedure details: Dressing: Antibiotic ointment and non-adherent dressing Procedure completion: Tolerated Saray Massey NP IN CLINIC/BEDSIDE ORDERABLES Final Result * eGFR (01/09/2025 3:07 PM CDT) eGFR 65 >=60 mL/min/1. 73 m2 Comment: Interpretive Data [...] interpretive data was last reviewed 2021. Blood 01/09/2025 3:07 PM CDT 01/09/2025 3:11 PM CDT us Juan Carlos Burgess MD LAB BLOOD ORDERABLES Final Res ult [facility] ([place]) [facility] Department [place] [address] * (ABNORMAL) Differential, auto (01/09/2025 3:07 PM CDT) Neutrophil abs 8.15(H) 1.50 - 6.50 K/cumm Imm gran abs 0.20(H) 0.00 - 0.10 K/cumm [facility] ([place]) Lymphocyte abs 1.87 0.80 - 3.30 K/cumm [facility] ([place]) Monocyte abs 1.04(H) 0.20 - 0.80 K/cumm [facility] ([place]) Eosinophil abs 0.03 0.00 - 0.50 K/cumm [facility] ([place]) Basophil abs 0.03 0.00 - 0.10 K/cumm [facility] ([place]) Neutrophil pct 71.9 % [facility] ([place]) Comment: Interpretive Data Percent cell count reference ranges are not reported, since discordance with absolute values may lead to misinterpretation of CBC data. Current Interpretive Data was last revised on 2017. Imm gran pct 1.8 % [facility] ([place]) Comment: Interpretive Data [...] Data was last revised on 2017. Blood 01/09/2025 3:07 PM CDT 01/09/2025 3:11 PM CDT us Juan Carlos Burgess MD LAB BLOOD ORDERABLES Final Res ult [facility] ([place]) 1 [facility] Department [place] [address] * (ABNORMAL) CBC with auto differential (01/09/2025 3:07 PM CDT) WBC 11.32(H) 3.80 - 9.90 K/cumm Hgb 9.2(L) 11.9 - 15.5 g/dL [facility] ([place]) Hct 30.3(L) 35.6 - 45.5 % [facility] ([place]) Plt 342 150 - 400 K/cumm [facility] ([place]) MPV 9.8 9.1 - 12.3 fL [facility] ([place]) RBC 3.46(L) 3.90 - 5.20 M/cumm [facility] ([place]) MCV 87.6 81.3 - 96.4 fL [facility] ([place]) MCH 26.6(L) 27.1 - 33.3 pg [facility] ([place]) MCHC 30.4(L) 32.3 - 35.7 g/dL [facility] ([place]) RDW CV 17.6(H) 11.1 - 14.9 % [facility] ([place]) RDW SD 56.0(H) 35.7 - 48.1 fL [facility] ([place]) NRBC abs 0.03(H) 0.00 - 0.01 K/cumm [facility] ([place]) Blood 01/09/2025 3:07 PM CDT 01/09/2025 3:11 PM CDT Juan Carlos Burgess MD LAB BLOOD ORDERABLES Final Res ult Performing Organization Address City/[facility] Co de Phone Number [facility] ([place]) 1 [facility] [employer] [place] [address] * (ABNORMAL) aPTT (01/09/2025 3:07 PM CDT) aPTT 22(L) 26 - 38 sec [facility] ([place]) Comment: Interpretive Data Heparin therapeutic range: 66.0 - 100.0 seconds. Range based on correlation with therapeutic heparin activity range of 0.3 - 0.7 Units/mL. Current interpretive data was last revised on 2022. Blood 01/09/2025 3:07 PM CDT 01/09/2025 3:11 PM CDT Juan Carlos Burgess MD LAB BLOOD ORDERABLES Final Res ult Performing Organization Address City/[facility]/ZIP Co de Phone Number [facility] ([place]) 1 [facility] [employer] [place] [place] [address] * Protime-INR (01/09/2025 3:07 PM CDT) PT 10.2 10.2 - 13.5 sec [facility] ([place]) INR 0.90 0.90 - 1.20 [facility] ([place]) Comment: Interpretive data Oral anticoagulant therapeutic ranges: Venous thromboembolism prophylaxis or treatment: 2.0-3.0 CARDIOLOGY Standard range: 2.0-3.0 High-intensity range: 2.5-3.5 Refer to indication-specific guidelines for appropriate target ranges for prosthetic heart valve replacement. Current interpretive data was last revised on 2019. Blood 01/09/2025 3:07 PM CDT 01/09/2025 3:11 PM CDT us Juan Carlos Burgess MD LAB BLOOD ORDERABLES Final Res ult [facility] ([place]) 1 [facility] Department [place] [address] * (ABNORMAL) Comprehensive metabolic panel (01/09/2025 3:07 PM CDT) Sodium 142 135 - 145 mmol/L Potassium, pl 3.5 3.3 - 4.9 mmol/L [facility] ([place]) Chloride 106 97 - 110 mmol/L [facility] ([place]) CO2 25 22 - 32 mmol/L [facility] ([place]) Anion gap 11 2 - 15 mmol/L [facility] ([place]) BUN 24 6 - 25 mg/dL [facility] ([place]) Creatinine 0.94 0.60 - 1.10 mg/dL [facility] ([place]) Glucose 107 70 - 199 mg/dL [facility] ([place]) [...] classification and Diagnosis of Diabetes Diabetes Care 2022; 46: S19-S40. Current interpretive data was last revised 2022. Calcium 9.3 8.5 - 10.3 mg/dL [facility] ([place]) Bilirubin, total 0.4 0.1 - 1.2 mg/dL [facility] ([place]) Protein, pl 6.1(L) 6.5 - 8.5 g/dL [facility] ([place]) Albumin 3.9 3.5 - 5.0 g/dL [facility] ([place]) Alk phos 58 40 - 130 Units/L [facility] ([place]) ALT 19 7 - 45 Units/L [facility] ([place]) AST 20 10 - 45 Units/L [facility] ([place]) Blood 01/09/2025 3:07 PM CDT 01/09/2025 3:11 PM CDT us Juan Carlos Burgess MD LAB BLOOD ORDERABLES Final Res ult [facility] ([place]) 1 [facility] Department [place] [address] * TRANSTHORACIC ECHO (TTE) LIMITED/FOLLOW UP W LTD DOPPLER/CF WO CONTRAST (12/29/2024 7:39 AM CDT) EF Mod BP 60 % CONS SCIMAGE Anatomical Region Laterality Modality Ultrasound 12/29/2024 7:02 AM CDT Narrative 12/29/2024 9:28 [place] [address] Limited Echocardiogram Report Patient Name: MONSE BOUCHER J : 1955 Study Date: 12/29/2024 7:02:58 AM Sex: F Tech: Location: [id number] Ref Provider: PRANAY BARKER Height(Cm): 157 BSA: 1.86 Weight(Kg): 79 Heart Rate: 81 BP: 154 / 89 Quality: Good Order Provider: PRANAY BARKER PROCEDURES: Echocardiographic Report: Limited transthoracic echocardiogram with 2D and M-Mode. INDICATIONS: S/P LAAO. MEASUREMENTS: 2D/MM Value Range EF Mod BP 60 % [ 54 - 74 ] 2D/MM Value Range - FINDINGS: Left Ventricle: Normal left ventricular systolic function with no focal wall motion abnormalities. Normal left ventricular size. Ejection fraction is measured at 60 %. Left Atrium: Left atrium is adequately Visualized. Left atrial appendage occluder device is present. Right Ventricle: Normal right ventricular systolic function. Pericardium: Normal pericardium with no significant pericardial effusion. CONCLUSIONS: Normal left ventricular systolic function with no focal wall motion abnormalities. Normal left ventricular size. Ejection fraction is measured at 60 %. Normal right ventricular systolic function. Left atrium is adequately Visualized. Left atrial appendage occluder device is present. Normal pericardium with no significant pericardial effusion. Electronically Signed By: Saray Prabhakar DO, FACC, FASE, FASNC 12/29/2024 9:28:01 AM CDT Procedure Note Saray Prabhakar DO - 12/29/2024 [place] [address] Limited Echocardiogram Report Patient Name: MONSE BOUCHER J : 1955 Study Date: 12/29/2024 7:02:58 AM Sex: F Tech: Location: [id number] Ref Provider: PRANAY BARKER Height(Cm): 157 BSA: 1.86 Weight(Kg): 79 Heart Rate: 81 BP: 154 / 89 Quality: Good Order Provider: PRANAY BARKER PROCEDURES: Echocardiographic Report: Limited transthoracic echocardiogram with 2D and M-Mode. INDICATIONS: S/P LAAO. MEASUREMENTS: 2D/MM Value Range EF Mod BP 60 % [ 54 - 74 ] 2D/MM Value Range - FINDINGS: Left Ventricle: Normal left ventricular systolic function with no focal wall motionabnormalities. Normal left ventricular size. Ejection fraction is measured at 60 %. Left Atrium: Left atrium is adequately Visualized. Left atrial appendage occluderdevice is present. Right Ventricle: Normal right ventricular systolic function. Pericardium: Normal pericardium with no significant pericardial effusion. CONCLUSIONS: Normal left ventricular systolic function with no focal wall motionabnormalities. Normal left ventricular size. Ejection fraction is measured at 60 %. Normal right ventricular systolic function. Left atrium is adequately Visualized. Left atrial appendage occluderdevice is present. Normal pericardium with no significant pericardial effusion. Electronically Signed By: Saray Prabhakar DO, FACKamini, WILMAN NEWBY 12/29/2024 9:28:01 AM CDT us Pranay Barker NP CV ECHO PROCEDURES Final Res ult * ECG 12 lead (12/29/2024 7:21 AM CDT) 12/29/2024 7:21 AM CDT Narrative [facility] - 12/29/2024 9:25 AM CDT Vent Rate: 83 bpm RR Interval: 715 msec ND Interval: 118 msec QRS Duration: 85 msec QT Interval: 355 msec QTC Interval: 395 msec P-R-T [place]: 47 - 52 - 50 degrees IMPRESSION: SINUS RHYTHM WITH SHORT ND INTERVAL Electronically Signed By: Ham Biggs MD, [facility] Pranay Barker NP ECG ORDERABLES Final Result [facility] * eGFR (12/29/2024 6:27 AM CDT) eGFR 77 >=60 mL/min/1. 73 m2 Comment: Interpretive Data [...] interpretive data was last reviewed 2021. Blood 12/29/2024 6:27 AM CDT 12/29/2024 6:45 AM CDT us Pranay Barker NP LAB BLOOD ORDERABLES Final R esult [facility] [id number] [address] Department of Laboratories [place] [id number] * (ABNORMAL) Differential, auto (12/29/2024 6:27 AM CDT) Neutrophil abs 9.32(H) 1.50 - 6.50 K/cumm Imm gran abs 0.07 0.00 - 0.10 K/cumm [facility] Lymphocyte abs 1.57 0.80 - 3.30 K/cumm [facility] Monocyte abs 0.86(H) 0.20 - 0.80 K/cumm [facility] Eosinophil abs 0.01 0.00 - 0.50 K/cumm [facility] Basophil abs 0.03 0.00 - 0.10 K/cumm [facility] Neutrophil pct 78.5 % [facility] Comment: Interpretive Data Percent cell count reference ranges are not reported, since discordance with absolute values may lead to misinterpretation of CBC data. Current Interpretive Data was last revised on 2017. Imm gran pct 0.6 % [facility] Comment: Interpretive Data Percent cell count reference ranges are not reported, since discordance with absolute values may lead to misinterpretation of CBC data. Current Interpretive Data was last revised on 2017. Lymphocyte pct 13.2 % [facility] Comment: Interpretive Data Percent cell count reference ranges are not reported, since discordance with absolute values may lead to misinterpretation of CBC data. Current Interpretive Data was last revised on 2017. Monocyte pct 7.3 % [facility] Comment: Interpretive Data Percent cell count reference ranges are not reported, since discordance with absolute values may lead to misinterpretation of CBC data. Current Interpretive Data was last revised on 2017. Eosinophil pct 0.1 % [facility] Comment: Interpretive Data Percent cell count reference ranges are not reported, since discordance with absolute values may lead to misinterpretation of CBC data. Current Interpretive Data was last revised on 2017. Basophil pct 0.3 % [facility] Comment: Interpretive Data Percent cell count reference ranges are not reported, since discordance with absolute values may lead to misinterpretation of CBC data. Current Interpretive Data was last revised on 2017. Blood 12/29/2024 6:27 AM CDT 12/29/2024 6:46 AM CDT us Pranay Barker DIRECTOR IT LAB BLOOD ORDERABLES Final R esult [facility] [id number] [address] Department [place] [address] * (ABNORMAL) Pro B-type natriuretic peptide (12/29/2024 6:27 AM CDT) NT-proBNP 992(H) <=300 pg/mL Comment: Interpretive Comments: A. Dyspnea in Acute Care Setting All Ages: < 300 pg/ml, acute heart failure unlikely. < 50 yrs: 300 - 450 pg/ml, further investigation warranted. > 450 pg/ml, acute heart failure likely. 50 - 74 yrs: 300 - 900 pg/ml, further investigation warranted. > 900 pg/ml, acute heart failure likely . > or = 75 yrs: 450 - 1800 pg/ml, further investigation warranted. > 1800 pg/ml, acute heart failure likely. B. Non-acute Setting < 75 yrs < 125 pg/ml, rules out heart failure. > or = 125 pg/ml, further investigation warranted. > or = 75 yrs < 450 pg/ml, rules out heart failure. > or = 450 pg/ml, further investigation [...] Interpretive Data Last Revised Date: 2017. Blood 12/29/2024 6:27 AM CDT 12/29/2024 6:45 AM CDT us Pranay Barker DIRECTOR IT LAB BLOOD ORDERABLES Final R esult [facility] [address] [address] Department [place] [address] * (ABNORMAL) CBC with auto differential (12/29/2024 6:27 AM CDT) WBC 11.86(H) 3.80 - 9.90 K/cumm Hgb 9.2(L) 11.9 - 15.5 g/dL [facility] Hct 31.1(L) 35.6 - 45.5 % [facility] Plt 254 150 - 400 K/cumm [facility] MPV 10.1 9.1 - 12.3 fL [facility] RBC 3.51(L) 3.90 - 5.20 M/cumm [facility] MCV 88.6 81.3 - 96.4 fL [facility] MCH 26.2(L) 27.1 - 33.3 pg [facility] MCHC 29.6(L) 32.3 - 35.7 g/dL [facility] RDW CV 17.3(H) 11.1 - 14.9 % [facility] RDW SD 55.3(H) 35.7 - 48.1 fL [facility] NRBC abs 0.00 0.00 - 0.01 K/cumm [facility] Blood 12/29/2024 6:27 AM CDT 12/29/2024 6:46 AM CDT Pranay Barker DIRECTOR IT LAB BLOOD ORDERABLES Final R [facility] Performing Organization Address [facility] de Phone Number [facility] [address] [address] [facility] [place] [address] * (ABNORMAL) aPTT (12/29/2024 6:27 AM CDT) aPTT 24(L) 26 - 38 sec Comment: Interpretive Data Heparin therapeutic range: 66.0 - 100.0 seconds. Range based on correlation with therapeutic heparin activity range of 0.3 - 0.7 Units/mL. Current interpretive data was last revised on 2022. Blood 12/29/2024 6:27 AM CDT 12/29/2024 6:46 AM CDT Pranay Barker DIRECTOR IT LAB BLOOD ORDERABLES Final [facility] Performing Organization Address [facility] de Phone Number [facility] [address] [address] [facility] [place] [address] * Protime-INR (12/29/2024 6:27 AM CDT) PT 11.0 10.2 - 13.5 sec INR 0.97 0.90 - 1.20 [facility] Comment: Interpretive data Oral anticoagulant therapeutic ranges: Venous thromboembolism prophylaxis or treatment: 2.0-3.0 CARDIOLOGY Standard range: 2.0-3.0 High-intensity range: 2.5-3.5 Refer to indication-specific guidelines for appropriate target ranges for prosthetic heart valve replacement. Current interpretive data was last revised on 2019. Blood 12/29/2024 6:27 AM CDT 12/29/2024 6:46 AM CDT Pranay Barker DIRECTOR IT LAB BLOOD ORDERABLES Final R esult [facility] [address] [address] [facility] [place] [address] * Magnesium (12/29/2024 6:27 AM CDT) Pathologist [facility] Magnesium 2.1 1.4 - 2.5 mg/dL Blood 12/29/2024 6:27 AM CDT 12/29/2024 6:45 AM CDT Pranay Barker DIRECTOR IT LAB BLOOD ORDERABLES Final R [facility] Performing Organization Address [facility] de Phone Number [facility] [id number] [address] [facility] [place] [address] * (ABNORMAL) Comprehensive metabolic panel (12/29/2024 6:27 AM CDT) Pathologist [facility] Sodium 141 135 - 145 mmol/L Potassium, pl 4.1 3.3 - 4.9 mmol/L [facility] Chloride 103 97 - 110 mmol/L [facility] CO2 22 22 - 32 mmol/L [facility] Anion gap 16(H) 2 - 15 mmol/L [facility] BUN 16 6 - 25 mg/dL [facility] Creatinine 0.82 0.60 - 1.10 mg/dL [facility] Glucose 129 70 - 199 mg/dL [facility] Comment: Interpretive Data Fasting glucose >/= 126 [...] interpretive data was last revised 2022. Calcium 9.3 8.5 - 10.3 mg/dL [facility] Bilirubin, total 0.4 0.1 - 1.2 mg/dL [facility] Protein, pl 6.3(L) 6.5 - 8.5 g/dL [facility] Albumin 3.5 3.5 - 5.0 g/dL [facility] Alk phos 62 40 - 130 Units/L [facility] ALT 16 7 - 45 Units/L [facility] AST 22 10 - 45 Units/L [facility] Blood 12/29/2024 6:27 AM CDT 12/29/2024 6:45 AM CDT us Pranay Barker NP LAB BLOOD ORDERABLES Final R esult [facility] [address] [address] Department [place] [address] * X-ray chest 1 view (Portable) (12/29/2024 5:30 AM CDT) Anatomical Region Laterality Modality Body, Chest N/A Computed Radiogr aphy 12/29/2024 10:2 2 AM CDT Impressions 12/29/2024 10:22 AM CDT No active disease. Electronically signed by: Marie Gardner M.D. Narrative 12/29/2024 10:22 AM CDT EXAMINATION: XR CHEST 1 VIEW HISTORY: The patient is a 69-year-old female who has had placement of a left atrial appendage closure device. Comparison made with the previous study dated 12/28/2024. TECHNIQUE: AP portable view of the chest. FINDINGS: Lungs clear. Cardiovascular structures unremarkable. Procedure Note Marie Gardner MD - 12/29/2024 EXAMINATION: XR CHEST 1 VIEW HISTORY: The patient is a 69-year-old female who has had placement of a left atrial appendage closure device. Comparison made with the previous study dated 12/28/2024. TECHNIQUE: AP portable view of the chest. FINDINGS: Lungs clear. Cardiovascular structures unremarkable. IMPRESSION: No active disease. Electronically signed by: Marie Gardner M.D. Pranay Barker NP IMG XR PROCEDURES Final Resu lt * X-ray chest 1 view (Portable) (12/28/2024 11:09 AM CDT) Anatomical Region Laterality Modality Body, Chest N/A Computed Radiogr aphy 12/28/2024 11:3 6 AM CDT Impressions 12/28/2024 11:36 AM CDT Moderate vascular congestion. Electronically signed by: Marie Gardner M.D. Narrative 12/28/2024 11:36 AM CDT EXAMINATION: XR CHEST 1 VIEW HISTORY: The patient is a 69-year-old female who has had a left atrial appendage closure device placed. Comparison made with the previous study dated 07/28/2024. TECHNIQUE: AP portable view of the chest. FINDINGS: Left atrial appendage closure device in place. Borderline cardiomegaly with aortic atherosclerosis. Moderate degree of vascular congestion. No focal infiltrate. Procedure Note Marie Gardner MD - 12/28/2024 EXAMINATION: XR CHEST 1 VIEW HISTORY: The patient is a 69-year-old female who has had a left atrial appendage closure device placed. Comparison made with the previous study dated 07/28/2024. TECHNIQUE: AP portable view of the chest. FINDINGS: Left atrial appendage closure device in place. Borderline cardiomegaly with aortic atherosclerosis. Moderate degree of vascular congestion. No focal infiltrate. IMPRESSION: Moderate vascular congestion. Electronically signed by: Marie Gardner M.D. Pranay Barker NP [facility] XR PROCEDURES Final Resu lt * TRANSESOPHAGEAL ECHO (CRISTIANE) W DOPPLER/CF WO CONTRAST (12/28/2024 10:00 AM CDT) BSA 1.85 m2 CONS SCIMAGE Anatomical Region Laterality Modality Ultrasound Narrative 12/28/2024 1:07 PM CDT Table formatting from the original result was not included. 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 CRISTIANE probe was inserted. There was no evidence of clot in FRIDA. Baseline CRISTIANE measurements were taken and was fit for device size 18. Measurement CRISTIANE 0 CRISTIANE 45 CRISTIANE 90 CRISTIANE 135 FRIDA orifice 20 18 Landing zone 13 16 Depth Trans-septal puncture was performed with echo guidance with easy entry into the left atrium mid and inf position. The sheath was advanced under ECHO guidance. Amulet device was loaded and then deployed under echo guidance. Final images showed good device position and no evidence of color leak around it. Device remained stable after released. Pulmonary vein flow & MR function was not impeded. There is no pericardial effusion. 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 The patient presents for consideration of left atrial appendage closure. Informed consent was obtained after detailed discussion with the patient about the procedures, risks, benefits, and alternatives. The patient consented to open-heart surgery should device placement fail. The patient was brought to the [facility] OR in a fasting state. A time-out was performed. The patient was prepped and draped in the usual sterile fashion. General anesthesia was administered. Prophylactic antibiotics were given . The patient received endotracheal intubation. OPERATORS: Chapin Padron MD, Cy Oscar MD VASCULAR ACCESS The right femoral vein was accessed using the modified Seldinger technique. An 8 [place] Islander sheath was placed TRANSSEPTAL PUNCTURE The patient was kept therapeutically anticoagulated throughout the case. Transseptal puncture was made to gain access to the left atrium using a [facility] needle system. Transseptal catheterization was performed and guided by CRISTIANE see imaging note. The transseptal puncture was performed mid and inferior position. The wire was advanced through the left atrium and a double curved delivery sheath was placed over the wire. An Amplatzer delivery catheter TorqVue was advanced into the left atrial appendage. A 5-[place]er pigtail was advanced into the left atrial appendage. Appendage was determined to be appropriate size for 18 mm left atrial appendage occluder device as suggested by echocardiographic data. LA pressure was 20 mm Hg The Amplatzer Amulet 18 mm occluder was inserted and advanced into the left atrial appendage. The device was deployed in position within the left atrial appendage. CLOSE criteria was used to confirm successful device deployment. The device position and compression ratio was verified by transesophageal echo. The compression ratio was acceptable. Tug test demonstrated adequate resistance in spring back to the original position. No FRIDA leaks were present after deployment. The device was released and stable.The disk was flat with the ridge Protamine administered. Catheter removed and aemostasis achieved using a purse string suture after removal of all catheters, wires, and sheaths. FINAL INTERPRETATION Successful percutaneous closure of the left atrial appendage with a 18 mm Amplatzer Amulet occluder device without in lab complications. Chapin Padron MD us Chapin Padron MD CV ELECTROPHYSIOLOGY PROCS Alice l Result * POC Activated Clotting Time, High Range (12/28/2024 9:29 AM CDT) ACT NA 87 - 138 sec Blood 12/28/2024 9:29 AM CDT 12/28/2024 9:29 AM CDT us Chapin Padron MD LAB BLOOD ORDERABLES Final Resu lt [facility] [id number] [address] Department [place] [address] * ND AN ELECTIVE ENDOTRACHEAL AIRWAY (12/28/2024 9:24 AM CDT) Narrative Alexis Lara AA - 12/28/2024 9:24 AM CDT Alexis Lara AA 12/28/2024 9:24 AM Airway Patient location: OR Urgency: elective Date/time: 12/28/2024 9:14 AM Indications for airway management: anesthesia Difficult airway: no Staff: Supervising provider: Bowen Donovan MD Placed by: AA: Alexis Lara AA Emergent airway documentation: Risks and benefits discussed: yes Consent obtained: yes Consent given by: patient Airway prep: Preoxygenated: yes Patient position: sniffing Mask difficulty assessment: 1 - vent by mask Spontaneous ventilation during airway: absent Sedation level during airway: GA Final airway details: Final airway type: endotracheal airway Tube type: ETT Cuffed: yes Technique used for successful ETT placement: video laryngoscopy Insertion site: oral Blade type: Giacomo Video blade type: Oakley Blade size: 3 Cormack-Lehane (video): grade I - full view of glottis Cuff inflated with: air ETT to lips: 21 cm Placement verified by: auscultation and CO2 detection Airway secured with: silk tape Number of attempts: 1 Additional comments: Gentle and atraumatic placement of endotracheal tube. Endotracheal tube cuff inflated to minimal occulusion pressure. Dentition noted to be same as preoperative evaluation. us Bowen Donovan MD ANESTHESIA ORDERABLES Final Result * Check Sample (12/28/2024 6:50 AM CDT) ABO Rh A Positive [facility] OTHER 12/28/2024 6:50 AM CDT 12/28/2024 6:54 AM CDT Chapin Padron MD LAB BLOOD ORDERABLES Final Resu lt [facility] [address] [address] Department [place] [address] CH * Potassium, whole blood (12/28/2024 6:14 AM CDT) Potassium, bld 3.4 3.3 - 4.9 mmol/L Comment: Interpretive Data This method is not able to assess for hemolysis, which may falsely increase potassium concentrations. If further testing is needed to evaluate this result, consider in-laboratory plasma potassium. Current Interpretive Data was last revised on 2021. Blood 12/28/2024 6:14 AM CDT 12/28/2024 6:53 AM CDT Иванleslee Zee Ruiz DIRECTOR IT LAB BLOOD ORDERABLES Final Result Performing Organization Address City/[facility] Co de Phone Number [facility] [address] [address] Department [place] [address] * Prepare RBC: 2 Units (12/28/2024 5:54 AM CDT) Product code [id number] [facility] Unit Number [id number] 5-9 CERNER Product Blood Type APOS CERNER Dispense Status RETURNED CERNER Product code [id number] Unit Number [id number] 7-2 CERNER Product Blood Type APOS [facility] Dispense Status RETURNED [facility] Blood 12/28/2024 5:54 AM CDT Narrative CERNER - 12/29/2024 12:20 AM CDT Specify Procedure:->LAAO Are special requirements needed? (All products are leukoreduced and CMV- safe)- >No Date required:-[id number] LRRBC # of [id number] Reasons:-Hold for procedure (specify procedure)} Chapin Padron MD BLOOD BANK PRODUCT ORDERABLES F inal Result Performing Organization Address City/[facility] Co de Phone Number REJI SENIOR [id number] [address] Department [place] [address] * CT Heart Morphology W Contrast (12/22/2024 3:23 PM CDT) Anatomical Region Laterality Modality Chest N/A Computed Tomogra phy 12/23/2024 10:2 6 AM CDT Impressions 12/23/2024 12:07 PM CDT 1. Left atrial appendage measurements for placement of occlusion device as described above. 2. No evidence of left atrial appendage thrombus. 3. New trace bilateral pleural effusions. Dictated by: Saul Desai M.D. The radiology attending physician has personally reviewed this study, and had reviewed and/or edited this written report and agrees with it. Electronically signed by: Tee Carpenter M.D. Narrative 12/23/2024 12:07 PM CDT EXAMINATION: CT HEART MORPHOLOGY W CONTRAST HISTORY: Rule out left axial appendage thrombus. TECHNIQUE: Heart CT performed during administration of 90 mL of Optiray 350, intravenously per pulmonary vein protocol. Images were transferred to an independent workstation for additional 3D post-processing. COMPARISON: Chest CT 02/11/2024 FINDINGS: Left atrium measurements: * Diameter (during atrial diastole): 38 mm Left atrial appendage: * Depth: 20 mm * Length: 39 mm * Ostium measurements: Area 4.8 cm2; circumference 8.3 cm; 18 mm length x 31 mm width * Landing zone measurements: Area 2.05 cm2; circumference 5.3 cm; 18 mm length x 14 mm width * Shape: Chicken wing There is no evidence of left atrial appendage thrombus. Interatrial septum measures 3 mm thick and is free of device or thrombus. Esophagus lies immediately posterior to the left inferior pulmonary vein. Other findings: Unchanged fat-containing the attending hiatal hernia. New trace bilateral pleural effusions. No axillary, supraclavicular, mediastinal or hilar lymphadenopathy. Mediastinal lipomatosis. Normal heart size. No pericardial effusion. Included images of the upper abdomen are unremarkable. No concerning osseous lesion. Unremarkable soft tissue. Procedure Note Tee Carpenter MD - 12/23/2024 EXAMINATION: CT HEART MORPHOLOGY W CONTRAST HISTORY: Rule out left axial appendage thrombus. TECHNIQUE: Heart CT performed during administration of 90 mL of Optiray 350, intravenously per pulmonary vein protocol. Images were transferred to an independent workstation for additional 3D post-processing. COMPARISON: Chest CT 02/11/2024 FINDINGS: Left atrium measurements: * Diameter (during atrial diastole): 38 mm Left atrial appendage: * Depth: 20 mm * Length: 39 mm * Ostium measurements: Area 4.8 cm2; circumference 8.3 cm; 18 mm length x 31 mm width * Landing zone measurements: Area 2.05 cm2; circumference 5.3 cm; 18 mm length x 14 mm width * Shape: Chicken wing There is no evidence of left atrial appendage thrombus. Interatrial septum measures 3 mm thick and is free of device or thrombus. Esophagus lies immediately posterior to the left inferior pulmonary vein. Other findings: Unchanged fat-containing the attending hiatal hernia. New trace bilateral pleural effusions. No axillary, supraclavicular, mediastinal or hilar lymphadenopathy. Mediastinal lipomatosis. Normal heart size. No pericardial effusion. Included images of the upper abdomen are unremarkable. No concerning osseous lesion. Unremarkable soft tissue. IMPRESSION: 1. Left atrial appendage measurements for placement of occlusion device as described above. 2. No evidence of left atrial appendage thrombus. 3. New trace bilateral pleural effusions. Dictated by: Saul Desai M.D. The radiology attending physician has personally reviewed this study, and had reviewed and/or edited this written report and agrees with it. Electronically signed by: Tee Carpenter M.D. Chapin Padron MD IM CT PROCEDURES Final Result * (ABNORMAL) eGFR (12/20/2024 1:55 PM CDT) eGFR 48(L) >=60 mL/min/1. 73 m2 Comment: Interpretive Data [...] interpretive data was last reviewed 2021. Blood 12/20/2024 1:55 PM CDT 12/20/2024 1:55 PM CDT us Chapin Padron MD LAB BLOOD ORDERABLES Final Resu lt REJI [id number] [address] [place] [address] * (ABNORMAL) Differential, auto (12/20/2024 1:55 PM CDT) Neutrophil abs 8.27(H) 1.50 - 6.50 K/cumm Imm gran abs 0.19(H) 0.00 - 0.10 K/cumm [facility] Lymphocyte abs 2.78 0.80 - 3.30 K/cumm [facility] Monocyte abs 1.32(H) 0.20 - 0.80 K/cumm [facility] Eosinophil abs 0.18 0.00 - 0.50 K/cumm [facility] Basophil abs 0.06 0.00 - 0.10 K/cumm [facility] Neutrophil pct 64.6 % [facility] Comment: Interpretive Data Percent cell count reference ranges are not reported, since discordance with absolute values may lead to misinterpretation of CBC data. Current Interpretive Data was last revised on 2017. Imm gran pct 1.5 % [facility] Comment: Interpretive Data Percent cell count reference ranges are not reported, since discordance with absolute values may lead to misinterpretation of CBC data. Current Interpretive Data was last revised on 2017. Lymphocyte pct 21.7 % [facility] Comment: Interpretive Data Percent cell count reference ranges are not reported, since discordance with absolute values may lead to misinterpretation of CBC data. Current Interpretive Data was last revised on 2017. Monocyte pct 10.3 % [facility] Comment: Interpretive Data Percent cell count reference ranges are not reported, since discordance with absolute values may lead to misinterpretation of CBC data. Current Interpretive Data was last revised on 2017. Eosinophil pct 1.4 % [facility] Comment: Interpretive Data Percent cell count reference ranges are not reported, since discordance with absolute values may lead to misinterpretation of CBC data. Current Interpretive Data was last revised on 2017. Basophil pct 0.5 % [facility] Comment: Interpretive Data Percent cell count reference ranges are not reported, since discordance with absolute values may lead to misinterpretation of CBC data. Current Interpretive Data was last revised on 2017. Blood 12/20/2024 1:55 PM CDT 12/20/2024 1:55 PM CDT Chapin Padron MD LAB BLOOD ORDERABLES Final Resu lt Performing Organization Address City/[facility]/ZIP Co de Phone Number REJI SENIOR [phone] [address] [employer] [place] [address] * (ABNORMAL) CBC with auto differential (12/20/2024 1:55 PM CDT) WBC 12.80(H) 3.80 - 9.90 K/cumm Hgb 9.6(L) 11.9 - 15.5 g/dL [facility] Hct 31.7(L) 35.6 - 45.5 % [facility] Plt 329 150 - 400 K/cumm [facility] MPV 9.9 9.1 - 12.3 fL [facility] RBC 3.62(L) 3.90 - 5.20 M/cumm [facility] MCV 87.6 81.3 - 96.4 fL [facility] MCH 26.5(L) 27.1 - 33.3 pg [facility] MCHC 30.3(L) 32.3 - 35.7 g/dL [facility] RDW CV 17.1(H) 11.1 - 14.9 % [facility] RDW SD 54.6(H) 35.7 - 48.1 fL [facility] NRBC abs 0.02(H) 0.00 - 0.01 K/cumm [facility] Blood 12/20/2024 1:5 5 PM CDT 12/20/2024 1:55 PM CDT Chapin Padron MD LAB BLOOD ORDERABLES Final Resu lt Performing Organization Address City/[facility]/ZIP Co de Phone Number P[facility] SENIOR [phone] [address] Department [place] [address] * aPTT (12/20/2024 1:55 PM CDT) aPTT 28 26 - 38 sec Comment: Interpretive Data Heparin therapeutic range: 66.0 - 100.0 seconds. Range based on correlation with therapeutic heparin activity range of 0.3 - 0.7 Units/mL. Current interpretive data was last revised on 2022. Blood 12/20/2024 1:55 PM CDT 12/20/2024 1:55 PM CDT Chapin Padron MD LAB BLOOD ORDERABLES Final Resu lt Performing Organization Address [facility] Co de Phone Number REJI [phone] [address] [employer] [place] [place] [address] * (ABNORMAL) Protime-INR (12/20/2024 1:55 PM CDT) PT 14.9(H) 10.2 - 13.5 sec INR 1.33(H) 0.90 - 1.20 REJI Comment: Interpretive data Oral anticoagulant therapeutic ranges: Venous thromboembolism prophylaxis or treatment: 2.0-3.0 CARDIOLOGY Standard range: 2.0-3.0 High-intensity range: 2.5-3.5 Refer to indication-specific guidelines for appropriate target ranges for prosthetic heart valve replacement. Current interpretive data was last revised on 2019. Blood 12/20/2024 1:55 PM CDT 12/20/2024 1:55 PM CDT Chapin Padron MD LAB BLOOD ORDERABLES Final Resu lt Performing Organization Address City/[facility]/ZIP Co de Phone Number REJI SENIOR [phone] [address] [employer] [place] [address] * (ABNORMAL) Comprehensive metabolic panel (12/20/2024 1:55 PM CDT) Sodium 142 135 - 145 mmol/L Potassium, pl 3.3 3.3 - 4.9 mmol/L [facility] Chloride 104 97 - 110 mmol/L [facility] CO2 25 22 - 32 mmol/L [facility] Anion gap 13 2 - 15 mmol/L [facility] BUN 31(H) 6 - 25 mg/dL [facility] Creatinine 1.22(H) 0.60 - 1.10 mg/dL [facility] Glucose 132 70 - 199 mg/dL [facility] Comment: Interpretive Data Fasting glucose >/= 126 [...] interpretive data was last revised 2022. Calcium 8.8 8.5 - 10.3 mg/dL [facility] Bilirubin, total 0.4 0.1 - 1.2 mg/dL [facility] Protein, pl 6.0(L) 6.5 - 8.5 g/dL [facility] Albumin 3.7 3.5 - 5.0 g/dL [facility] Alk phos 59 40 - 130 Units/L [facility] ALT 19 7 - 45 Units/L [facility] AST 17 10 - 45 Units/L [facility] Blood 12/20/2024 1:55 PM CDT 12/20/2024 1:55 PM CDT us Chapin Pdaron MD LAB BLOOD ORDERABLES Final Resu lt [facility] [id number] [address] [place] [address] * Type and screen (12/20/2024 1:45 PM CDT) ABO Rh A Positive New, indirect Negative [facility] Blood 12/20/2024 1:45 PM CDT 12/20/2024 1:58 PM CDT Narrative [facility] - 12/20/2024 2:40 PM CDT Has the patient had Daratumumab or Isatuximab in the past 6 months?->Unknown Chapin Padron MD LAB BLOOD BANK TEST ORDERABLES Final Result REJI [address] [place] [address] * ECG 12 lead (12/20/2024 1:22 PM CDT) 12/20/2024 1:22 PM CDT Narrative [facility] - 12/20/2024 5:50 PM CDT Vent Rate: 67 bpm RR Interval: 883 msec ND Interval: 119 msec QRS Duration: 98 msec QT Interval: 393 msec QTC Interval: 409 msec P-R-T [place]: 40 - 48 - 54 degrees IMPRESSION: SINUS RHYTHM WITH SHORT ND INTERVAL BORDERLINE ECG No change compared to prior EKG Electronically Signed By: Thang Daly MD [facility] Chapin Padron MD ECG ORDERABLES Final Result Performing Organization Address City/[facility] de Phone Number [facility] [employer] [facility] from Last 3 Months Insurance [facility] Address[facility] [address] [place] [address] [facility] MEDICARE ADVANTAGE [facility] Address: [address] [address] Advance Directives For more information, please contact: [phone] * Full Code (Latest Code Status on File) Date Activated Date Inactivated Comments 02/19/2024 6:03 PM 02/21/2024 5:09 PM * Full Code Date Activated Date Inactivated Comments 02/11/2024 7:53 AM 02/13/2024 3:37 PM Care Teams Manager Union Relationship Specialty Start Date End Date Fernando Rucker MD [address] [id number] PCP - General 05/25/14
--- OUTSIDE RECORDS SUMMARY | 2025-03-10 13:08 | XMS_ITS | Patient Health Record ---
Author Organization [facility] yu Address [address] [place] [address] Care Team Providers Care Amusement Machine Mechanic Name Role Phone Fernando Rucker MD Primary Care Provider Judie WinOpal Unavailable [phone] Allergies Allergen (clinical drug ingredient) Drug/Non Drug [...] date:04/20/2024 01:51:02 PM Interpretation:Lab Result Generalized Performing Lab:[facility], [address] [facility], [place], [address] Notes/Report: Sodium 137 133-146 mmol/L Potassium 3.1 [...] date:04/20/2024 01:51:02 PM Interpretation:Lab Result Generalized Performing Lab:[facility], [address] [facility], [place], [address] Notes/Report: WBC 10.2 3.5-10.5 10'3/uL RBC 3.87 [...] the clinical context of the individual patient: [email or web address] CMP(COMPREHENSIVE METABOLIC PANEL) Reviewed date:07/22/2024 08:16:58 AM Interpretation:Lab Result Generalized Performing Lab:[facility], [place], [address] Notes/Report: Sodium 144 133-146 mmol/L Potassium 3.6 [...] date:07/22/2024 08:16:58 AM Interpretation:Lab Result Generalized [facility]forming [facility], [address] [place] [address], [address] Notes/Report: WBC 9.7 3.5-10.5 10'3/uL RBC 3.54 [...] patient: [email or web address] [email or web address] CMP(COMPREHENSIVE METABOLIC PANEL) Reviewed date:10/24/2024 09:17:44 AM Interpretation: Performing Lab:[facility], [place], [address] Notes/Report: Sodium 141 133-146 mmol/L Potassium 4.1 3.5-5.1 mmol/L Chloride 104 98-107 mmol/L Carbon Dioxide 26 21-31 mmol/L Anion Gap 11 4-13 mmol/L Blood Urea Nitrogen 27 7-25 mg/dL Creatinine 1.22 0.60-1.30 mg/dL eGFRcr (CKD-EPI 2020) 48 >=60 mL/min/1.73 m2 Calcium 9.6 8.3-10.5 mg/dL Glucose 159 70-100 mg/dL Protein, Total 6.8 6.4-8.3 g/dL Albumin 4.2 3.5-5.0 g/dL ALT 15 9-43 units/L Alkaline Phosphatase 70 34-104 units/L AST 16 13-39 units/L Bilirubin, Total 0.6 0.2-1.2 mg/dL CBC W/DIFF Reviewed date:10/23/2024 09:50:53 PM Interpretation: Performing Lab:[facility], [employer] [address] [facility] [place], [address] Notes/Report: WBC 7.7 3.5-10.5 10'3/uL RBC 3.95 (Based on docume nted legal sex) 3.80-5.20 10'6/uL HGB 10.3 (Based on docume nted legal sex) 11.6-15.4 g/dL HCT 34.5 (Based on docume nted legal sex) 34.0-45.0 % MCV 87.3 80.0-99.0 fL MCH 26.1 27.0-34.0 pg MCHC 29.9 32.0-35.5 g/dL RDW 16.2 11.0-15.0 % PLT 390 150-400 10'3/uL MPV 10.6 8.8-12.1 fL NRBC's 0.0 0.0 % Absolute NRBCs 0.0 No reference ran ge established 10'3/uL Neutrophils 85.6 34.0-73.0 % Lymphocytes 9.6 15.0-50.0 % Monocytes 3.8 1.0-15.0 % Eosinophils 0.3 0.0-8.0 % Basophils 0.4 0.0-2.0 % Immature Granulocytes 0.3 No defined reference range % Immature Granulocytes (IG) represents automated enumeration of Metamyelocytes, Myelocytes and Promyelocytes when IG is < 5%. Blasts are not included in IG and reported separately if present. Absolute Neutrophils 6.6 1.5-8.0 10'3/uL Absolute Lymphocytes 0.7 1.0-4.0 10'3/uL Absolute Monocytes 0.3 0.2-1.0 10'3/uL Absolute Eosinophils 0.0 0.0-0.6 10'3/uL Absolute Basophils 0.0 0.0-0.3 10'3/uL Absolute Immature Granulocytes 0.0 0.00-0.10 10'3/uL Reference ranges for nonbinary/intersex or unspecified gender patients have not been established. Please refer to the following table for ranges established for cisgender patients and evaluate in the clinical context of the individual patient: [email or web address] Reason For Referral No Information Medications Medication SIG (Take, Route, Frequency, Duration) Notes Start Date End Date Status Vitamin D (Cholecalciferol) 10 MCG (400 UNIT) weekly Oral Active B 12 injection - once monthly - *Reorder from Molecular Detection for eRx and Interaction Alerts* Active Metoprolol Succinate ER 50 MG Oral; Duration: 90 Days Active Ondansetron 8 MG prn Oral Act elizabeth Potassium Chloride A ctive predniSONE 5 MG 1 Orally daily; Duration: 30 days 04/26/2025 Active Aspirin 81 81 MG 1 tablet Orally Once a day Active busPIRone HCl 10 MG Oral; Duration: 30 Days Active Meclizine HCl 25 MG Oral; Duration: 20 Days Active HYDROcodone-Acetami nophen 5-325 MG prn Oral Active Lipo-Flavonoid Plus 200-100 mg ORAL *Reorder from Molecular Detection for eRx and Interaction Alerts* Active Problems Problem Type SNOMED Code ICD Code Onset Dates Problem Status W/U Status Risk Notes Problem Osteoarthritis (213691324) Osteoarthritis, unspecified osteoarthritis type, unspecified site (M19.90) Active confirmed Problem Inflammatory arthritis (8807544) Inflammatory arthritis (M19.90) Active confirmed Problem Chronic anemia (316960263) Chronic anemia (D64.9) Active confirmed Vital Signs Heart Rate 100 /min 01/23/2025 Temperature 98.0 degrees Fahrenheit 01/23/2025 Blood pressure diastolic 80 mm Hg 01/23/2025 Oximetry 99 % 01/23/2025 Height-cm 157.48 cm 01/23/2025 Weight-kg 77.61 kg 01/23/2025 Height 62 in 01/23/2025 Blood pressure systolic 130 mm Hg 01/23/2025 Weight 171.1 lbs 01/23/2025 BMI 31.29 kg/m2 01/23/2025 Encounters Encounter Location Date Provider Diagnosis [facility] [address] [address] [place] [address] 04/19/2024 Opal Du Inflammatory arthrit is M19.90 ; SEBLE positive R76.8 ; Osteoarthritis, unspecified osteoarthritis type, unspecified site M19.90 and High risk medication use Z79.899 [facility] [address] [place] [address] 06/21/2024 Oapl Du Inflammatory arthrit is M19.90 ; SEBLE positive R76.8 ; Osteoarthritis, unspecified osteoarthritis type, unspecified site M19.90 and High risk medication use Z79.899 [facility] [address] [place] [address] 07/21/2024 Opal Win Inflammatory arthrit is M19.90 ; SEBLE positive R76.8 ; Osteoarthritis, unspecified osteoarthritis type, unspecified site M19.90 ; High risk medication use Z79.899 and Chronic anemia D64.9 [facility] [address] [place] [address] 10/21/2024 Opal Win Inflammatory arthrit is M19.90 ; SEBLE positive R76.8 ; Osteoarthritis, unspecified osteoarthritis type, unspecified site M19.90 ; High risk medication use Z79.899 and Chronic anemia D64.9 [facility] [address] [place] [address] 01/23/2025 Opal Win Inflammatory arthrit is M19.90 ; SEBLE positive R76.8 ; Osteoarthritis, unspecified osteoarthritis type, unspecified site M19.90 ; High risk medication use Z79.899 and Chronic anemia D64.9 [facility] [address], [place] [address] 2024 [facility] [address] [place] [address] 04/08/2024 [facility] [address] [place] [address] 05/11/2024 Opal Win Inflammatory arthrit is M19.90 [facility] [address] [place] [address] 05/25/2024 [facility] [address], [place] [address] 06/17/2024 [facility] [address] [place] [address] 06/30/2024 [facility] [address] [place] [address] 09/01/2024 [facility] [address], [place] [address] 09/19/2024 Opal Win Inflammatory arthrit is M19.90 [facility] [address] [place] [address] 10/18/2024 Opal Win [facility] [address] [place] [address] 10/23/2024 Opal Win Inflammatory arthrit is M19.90 [facility] [address] [place] [address] 10/26/2024 Opal Win Inflammatory arthrit is M19.90 [facility] [address] [place] [address] 12/02/2024 Opal Win [facility] [address] [place] [address] 12/23/2024 Opal Win [facility] [address] [place] [address] 01/26/2025 Opal Win Inflammatory arthrit is M19.90 [facility] [address] [place] [address] 03/02/2025 Opal Win Assessments Encounter Date Diagnosis (ICD [...] MTX, labs today, return in 3 months 09/19/2024 Inflammatory arthritis (ICD-10 - M19.90) 10/21/2024 Inflammatory arthritis (ICD-10 - M19.90) increase MTX to 15mg/wk, labs today, return in 3 months 10/23/2024 Inflammatory arthritis (ICD-10 - M19.90) 10/26/2024 Inflammatory arthritis (ICD-10 - M19.90) 01/23/2025 Inflammatory arthritis (ICD-10 - M19.90) off MTX, on prednisone, no pain today, will monitor, return in 3 months 01/26/2025 Inflammatory arthritis (ICD-10 - M19.90) 01/23/2025 SEBLE positive (ICD-10 - R76.8) off MTX, on prednisone, no pain today, will monitor, return in 3 months 06/21/2024 SEBEL positive (ICD-10 - R76.8) increase MTX to 12.5mg/wk, return in 1 month, labs at next visit 10/21/2024 SEBLE positive (ICD-10 - R76.8) increase MTX to 15mg/wk, labs today, return in 3 months 07/21/2024 Osteoarthritis, unspecified osteoarthritis type, unspecified site (ICD-10 - M19.90) mildly symptomatic, change prednisone to prn, continue MTX, labs today, return in 3 months 04/19/2024 SEBLE positive (ICD-10 - R76.8) on MTX 10mg/wk, labs today, decrease prednisone to 5mg QOB, return in 3 months 07/21/2024 High risk medication use (ICD-10 - Z79.899) mildly symptomatic, change prednisone to prn, continue MTX, labs today, return in 3 months 10/21/2024 Osteoarthritis, unspecified osteoarthritis type, unspecified site (ICD-10 - M19.90) increase MTX to 15mg/wk, labs today, return in 3 months 06/21/2024 Osteoarthritis, unspecified osteoarthritis type, unspecified site (ICD-10 - M19.90) increase MTX to 12.5mg/wk, return in 1 month, labs at next visit 04/19/2024 Osteoarthritis, unspecified osteoarthritis type, unspecified site (ICD-10 - M19.90) on MTX 10mg/wk, labs today, decrease prednisone to 5mg QOB, return in 3 months 01/23/2025 Osteoarthritis, unspecified osteoarthritis type, unspecified site (ICD-10 - M19.90) off MTX, on prednisone, no pain today, will monitor, return in 3 months 01/23/2025 High risk medication use (ICD-10 - Z79.899) off MTX, on prednisone, no pain today, will monitor, return in 3 months 04/19/2024 High risk medication use (ICD-10 - Z79.899) on MTX 10mg/wk, labs today, decrease prednisone to 5mg QOB, return in 3 months 06/21/2024 High risk medication use (ICD-10 - Z79.899) increase MTX to 12.5mg/wk, return in 1 month, labs at next visit 10/21/2024 High risk medication use (ICD-10 - Z79.899) increase MTX to 15mg/wk, labs today, return in 3 months 07/21/2024 Chronic anemia (ICD-10 - D64.9) mildly symptomatic, change prednisone to prn, continue MTX, labs today, return in 3 months 10/21/2024 Chronic anemia (ICD-10 - D64.9) increase MTX to 15mg/wk, labs today, return in 3 months 01/23/2025 Chronic anemia (ICD-10 - D64.9) off MTX, on prednisone, no pain today, will monitor, return in 3 months Plan Of Treatment Pending Test Test Name Order Date CBC With Differential/Platelet Chem-Comprehensive 04/09/2023 Next Appt Details Provider Name:Opal Win, 04/24 10:45:00 AM, [address], [place], [address], Insurance Providers Payer Name Payer Address Payer Phone Subscriber Number Group Number Insured Name Patient Relationship to Insured Coverage Start Date Coverage End Date [facility] Medicare Advantage [facility] [address] [address] [place] [address] [id number] Monse Boucher Self - patient is the insured Medical (General) History Medical History History ICD Code SEBLE positive; Anemia; Colitis; Headache; Hypertension; IBS (irritable bowel syndrome); Pernicious anemia; COPD Surgical History Surgery Date(Month/Year) Breast biopsy; 2019-10-23 Carpal tunnel release; 2019-10-23 Hystectomy; 2019-10-23
--- OUTSIDE RECORDS SUMMARY | 2025-03-10 13:08 | XMS_ITS | Encounter Summary ---
Author Organization [facility] Address [address] [place] [address] Phone Care Team Providers Care Drill Instructor Name Role Phone Fernando Rucker MD Primary Care Provider [phone] Sylvester Graves MD Unavailable [phone] Encounter Details Date Type Department Care Team (Late Contact Info) Description 03/28/2020 [facility] [address] [place] [address] Wendy Porras, CLOTHES WRINGER, PRACTICE COORDINATOR [address] [place] [address] Social History Tobacco Use Types [...] (Late Contact Info) Description 03/30/2025 1:30 PM ANIMAL CAREGIVER [facility] [address] [place] [address] Angela Ferrara, CLOTHES WRINGER, INTERNET SALESPERSON [address] [place] [address] documented as of this encounter Procedures Procedure Name Priority Date/Time Associated Diagnosis Comments SARS-COV-2 BY MOLECULAR Routine 03/28/2020 9:16 AM ANIMAL CAREGIVER documented in this encounter Results * SARS-COV-2 BY MOLECULAR (03/28/2020 9:16 AM ANIMAL CAREGIVER) SARSCOV2 NOT DETECTED (Referen ce Range for this test is Not Detected ) [facility] THERMOFISHER FAST DX 03/29/2020 5:21 AM ANIMAL CAREGIVER [facility] Comment:This test was perfor med by a PCR method. Other NASOPHARYNGEAL STRUCTURE / Unknown No Phlebotomy Charged / Unknown 03/28/2020 9:16 AM ANIMAL CAREGIVER 03/28/2020 12:02 PM ANIMAL CAREGIVER Narrative [facility] - 03/29/2020 5:21 AM ANIMAL CAREGIVER Authorized Fact Sheets about this test for providers and patients are available at: https://www.fda.gov/medical-devices/omdajdfrb-tulqqnxnyo-dbjalds-devices/emergen -us e-authorizations us Wendy Porras CLOTHES WRINGER, PRACTICE COORDINATOR MICROBIOLOGY - GENE RAL ORDERABLES Final Result [facility] [address] [place] [address], documented in this encounter Visit Diagnoses Not on filedocumented in this encounter Additional Health Concerns Infection Onset Date Last Indicated Resolved Time COVID - 19 03/21/2020 04/11/2020 04/14/2020 9:09 AM ANIMAL CAREGIVER COVID - 19 02/09/2024 02/09/2024 02/09/2024 8:24 PM ANIMAL CAREGIVER Assessment Noted Time PHQ-9 Depression Total Score: 0 06/25/19 18 12:00 PM CDT documented as of this encounter Care Teams Drill Instructor Relationship Specialty Start Date End Date Fernando Rucker MD [address] [address] PCP - General Family Medicine 05/11/15 Sylvester Graves MD [address] [place] [address] Consulting Physician Neurology 06/17/23 documented as of this encounter
--- OUTSIDE RECORDS SUMMARY | 2025-03-10 13:08 | XMS_ITS | Encounter Summary ---
Author Organization [facility] Address [address] [place] [address] Phone Care Team Providers Care Hot Tamale Worker Name Role Phone Fernando Rucker MD Primary Care Provider [phone] Sylvester Graves MD Unavailable [phone] Reason for Visit * Reason Comments Medication Refill Encounter Details Date Type Department Care Team (Late st Contact Info) Description 05/09/2024 Refill [facility] - Neurology [facility] [address] [place] [address] Sylvester Graves MD [address] [place] [address] Medication Refill Social History Tobacco Use Types Packs/Day Years Used Date Smoking Tobacco: Never Smokeless Tobacco: Never Alcohol Use Standard Drinks/Week Comments Yes 0 (1 standard drink = 0.6 oz pur e alcohol) 1 glass of wine a month [facility] Utilities Answer Date Recorded In the past 12 months has [employer] electric, gas, oil, or water company threatened [...] week 05/19/2023 How often do you attend formerly [facility] or druze services? Never 05/19/2023 Do you belong to any clubs o r organizations such as jew groups, unions, fraternal or athletic groups, or [...] and heating? Not hard at all 05/19/2023 [facility] Occupat [facility] - Occupational Stress Questionnaire Answer Date [...] to sleep or slept in a senior living (including now)? No 05/19/2023 Housing Stability Vital [...] time in the past 12 m [facility], were you homeless or living in a senior living (including now)? No 08/28/2023 Sexually Active Control [...] st Contact Info) Description 03/30/2025 1:30 PM PATTERN MOLDER Office Visit [facility] - Neurology [facility] [address] [place] [address] Angela Ferrara, SHELTER MONITOR, HITTING COACH [address] [place] [address] documented as of this encounter Visit Diagnoses Diagnosis Intractable migraine without aura and without status migrainosus Migraine without aura, with intractable migraine, so stated, without mention of status migrainosus documented in this encounter Additional Health Concerns Assessment Noted Time PHQ-9 Depression Total Score: 0 06/25/19 18 12:00 PM CDT documented as of this encounter Care Teams Hot Tamale Worker Relationship Specialty Start Date End Date Fernando Rucker MD [address] [address] PCP - General Family Medicine 05/11/15 Sylvester Graves MD [address] [place] [address] Consulting Physician Neurology 06/17/23 documented as of this encounter
--- OUTSIDE RECORDS SUMMARY | 2025-03-10 13:08 | XMS_ITS | Patient Health Record ---
Author Organization [facility] Address [address] [facility] [place] [address] Phone [phone] Care Team Providers Care Nursing Educator Name Role Phone KEHINDE MERCEDES MD Primary Care Provider Judie Henrandez MD, [facility] Allergies Allergen (clinical drug ingredient) Drug/Non Drug Allergy documented on EMR Reaction Allergy Type Onset Date Status nalbuphine Nalbuphine itching Drug Allergy Activ e promethazine Promethazine itching Drug Allergy A ctive sumatriptan Sumatriptan rash Drug Allergy Act elizabeth Results Component Value Reference Range Flag Notes [facility] Results (Not yet reviewed by provider) Order date: 04/26/2024 Source/Specimen Type: ORAL FLUID Interpretation: Performing Lab:[id number] [facility], [id number] [address] [facility] [address] Colette Price MD Notes/Report: Codeine negative 1 ng/mL N Morphine negative 1 ng/mL N Hydrocodone positive-125.928 1 ng/mL A Norhydrocodone Quantification positive-4.352 2 ng/mL A Hydromorphone negative 1 ng/mL N Oxycodone negative 1 ng/mL N Noroxycodone Quantification negative 2 ng/mL N Oxymorphone negative 1 ng/mL N Fentanyl Quantification negative 0.2 ng/mL N Norfentanyl Quantification negative 1 ng/mL N Methadone negative 2 ng/mL N EDDP (Methadone metabolite) negative 2 ng/mL N Tramadol Quantification negative 5 ng/mL N U-Hvytbzina-Rxkmsxmq Quantification negative 5 ng/mL N Alprazolam negative 1 ng/mL N Clonazepam negative 1 ng/mL N Clonazepam Metabolite Quantification negative 1 ng/mL N Diazepam negative 1 ng/mL N Nordiazepam negative 1 ng/mL N Lorazepam negative 1 ng/mL N Oxazepam negative 2 ng/mL N Temazepam negative 1 ng/mL N Amphetamine negative 5 ng/mL N Methamphetamine negative 5 ng/mL N Cocaine Quantification negative 2 ng/mL N Cocaine Metabolite negative 2 ng/mL N THC (Marijuana Component) negative 2 ng/mL N 6-JESUS (Heroin metabolite) Quantification negative 1 ng/m L N [employer] Results (Not yet reviewed by provider) Order date: 07/22/2024 Source/Specimen Type: ORAL FLUID Interpretation: Performing Lab:[id number] [facility], [address] [address] [address] Colette Price MD Notes/Report: Codeine negative 1 ng/mL N Morphine negative 1 ng/mL N Hydrocodone positive-144.828 1 ng/mL A Norhydrocodone Quantification positive-9.606 2 ng/mL A Hydromorphone negative 1 ng/mL N Oxycodone negative 1 ng/mL N Noroxycodone Quantification negative 2 ng/mL N Oxymorphone negative 1 ng/mL N Fentanyl Quantification negative 0.2 ng/mL N Norfentanyl Quantification negative 1 ng/mL N Methadone negative 2 ng/mL N EDDP (Methadone metabolite) negative 2 ng/mL N Tramadol Quantification negative 5 ng/mL N L-Tklafiofc-Wxweriug Quantification negative 5 ng/mL N Alprazolam negative 1 ng/mL N Clonazepam negative 1 ng/mL N Clonazepam Metabolite Quantification negative 1 ng/mL N Diazepam negative 1 ng/mL N Nordiazepam negative 1 ng/mL N Lorazepam negative 1 ng/mL N Oxazepam negative 2 ng/mL N Temazepam negative 1 ng/mL N Amphetamine negative 5 ng/mL N Methamphetamine negative 5 ng/mL N Cocaine Quantification negative 2 ng/mL N Cocaine Metabolite negative 2 ng/mL N THC (Marijuana Component) negative 2 ng/mL N 6-JESUS (Heroin metabolite) Quantification negative 1 ng/m L N [facility] Results (Not yet reviewed by provider) Order date: 10/19/2024 Source/Specimen Type: ORAL FLUID Interpretation: Performing Lab:[id number] [facility], [address] [address] [facility] [address] Colette Price MD Notes/Report: Codeine negative 1 ng/mL N Morphine negative 1 ng/mL N Hydrocodone positive-11.553 1 ng/mL A Norhydrocodone Quantification negative 2 ng/mL N Hydromorphone negative 1 ng/mL N Oxycodone negative 1 ng/mL N Noroxycodone Quantification negative 2 ng/mL N Oxymorphone negative 1 ng/mL N Fentanyl Quantification negative 0.2 ng/mL N Norfentanyl Quantification negative 1 ng/mL N Methadone negative 2 ng/mL N EDDP (Methadone metabolite) negative 2 ng/mL N Tramadol Quantification negative 5 ng/mL N P-Riyatdwhz-Pekblhnd Quantification negative 5 ng/mL N Alprazolam negative 1 ng/mL N Clonazepam negative 1 ng/mL N Clonazepam Metabolite Quantification negative 1 ng/mL N Diazepam negative 1 ng/mL N Nordiazepam negative 1 ng/mL N Lorazepam negative 1 ng/mL N Oxazepam negative 2 ng/mL N Temazepam negative 1 ng/mL N Amphetamine negative 5 ng/mL N Methamphetamine negative 5 ng/mL N Cocaine Quantification negative 2 ng/mL N Cocaine Metabolite negative 2 ng/mL N THC (Marijuana Component) negative 2 ng/mL N 6-JESUS (Heroin metabolite) Quantification negative 1 ng/m L N [facility] Results (Not yet reviewed by provider) Order date: 01/17/2025 Source/Specimen Type: ORAL FLUID Interpretation: Performing Lab:[id number] [facility], [address] [address] [facility] [address] Colette Price MD Notes/Report: Codeine negative 1 ng/mL N Morphine negative 1 ng/mL N Hydrocodone positive-295.051 1 ng/mL A Norhydrocodone Quantification positive-10.805 2 ng/mL A Hydromorphone negative 1 ng/mL N Oxycodone negative 1 ng/mL N Noroxycodone Quantification negative 2 ng/mL N Oxymorphone negative 1 ng/mL N Fentanyl Quantification negative 0.2 ng/mL N Norfentanyl Quantification negative 1 ng/mL N Methadone negative 2 ng/mL N EDDP (Methadone metabolite) negative 2 ng/mL N Tramadol Quantification negative 5 ng/mL N J-Onzbozmmu-Ysekbeqt Quantification negative 5 ng/mL N Alprazolam negative 1 ng/mL N Clonazepam negative 1 ng/mL N Clonazepam Metabolite Quantification negative 1 ng/mL N Diazepam negative 1 ng/mL N Nordiazepam negative 1 ng/mL N Lorazepam negative 1 ng/mL N Oxazepam negative 2 ng/mL N Temazepam negative 1 ng/mL N Amphetamine negative 5 ng/mL N Methamphetamine negative 5 ng/mL N Cocaine Quantification negative 2 ng/mL N Cocaine Metabolite negative 2 ng/mL N THC (Marijuana Component) negative 2 ng/mL N 6-JESUS (Heroin metabolite) Quantification negative 1 ng/m L N Reason For Referral No Information Medications Medication SIG (Take, Route, Frequency, Duration) Notes Start Date End Date Diagnosis (ICD Code) Status Meclizine HCl 25 MG Tablet TAKE 1 TABLET BY MOUTH EVERY 8 HOURS NEEDED FOR DIZZINESS Oral; Duration: 20 Active Ondansetron 8 MG Tablet Disintegrating DISSOLVE 1 TABLET IN MOUTH EVERY 12 HOURS NEEDED FOR NAUSEA AND VOMITING Oral; Duration: 15 Active Potassium Chloride ER 20 MEQ Tablet Extended Release 1 tablet with food Orally Once a day; Duration: 30 day(s) Active Potassium Chloride Mag ER 20 MEQ Tablet Extended Release TAKE 1 TABLET BY MOUTH ONCE DAILY NEEDED. TAKE WITH LASIX. Oral; Duration: 30 Active buPROPion HCl ER (XL) 150 MG Tablet Extended Release 24 Hour TAKE 1 TABLET BY MOUTH IN THE MORNING Oral; Duration: 30 Active Furosemide 40 MG Tablet TAKE 1 TABLET BY MOUTH ONCE DAILY Oral; Duration: 30 Active Ipratropium-Albuterol 0.5-2.5 (3) MG/3ML Solution USE 3 ML IN NEBULIZER 4 TIMES DAILY NEEDED FOR SHORTNESS OF BREATH Inhalation; Duration: 30 Active Ferrous Sulfate 325 (65 Fe) MG Tablet Delayed Release TAKE 1 TABLET BY MOUTH DAILY. Oral; Duration: 30 Active hydroCHLOROthiazide 25 MG Tablet TAKE 1 TABLET BY MOUTH DAILY Oral; Duration: 90 Active Amitriptyline HCl 10 MG Tablet 1 tablet at bedtime Oral Once a day Active Bevespi Aerosphere 9-4.8 MCG/ACT Aerosol 2 puffs Inhalation Twice a day Active LORazepam 0.5 MG Tablet 1 tablet at bedtime as needed Oral Once a day Active Pantoprazole Sodium 40 MG Tablet Delayed Release TAKE 1 TABLET BY MOUTH ONCE DAILY IN THE MORNING Oral; Duration: 90 Active Colchicine 0.6 MG Tablet 1 tablet Oral once a day Active Jardiance 10 MG Tablet TAKE 1 TABLET BY MOUTH ONCE DAILY Oral; Duration: 30 Active Albuterol Sulfate HFA 108 (90 Base) MCG/ACT Aerosol Solution INHALE 2 PUFFS BY MOUTH EVERY 4 HOURS NEEDED FOR SHORTNESS OF BREATH OR WHEEZING Inhalation; Duration: 16 Active Vitamin D3 1.25 MG (49764 UT) Capsule TAKE 1 CAPSULE BY MOUTH ONCE WEEKLY Oral; Duration: 98 Active Lisinopril 20 MG Tablet TAKE 1 TABLET BY MOUTH AT BEDTIME Oral; Duration: 90 Active Cyanocobalamin 1000 MCG/ML Solution ADMINISTER 1 ML UNDER THE SKIN MONTHLY Injection; Duration: 90 Active HYDROcodone-Acetaminophe n 7.5-325 MG Tablet 1 tablet as needed Orally every 6 hrs; Duration: 30 days 01/17/2025 Rheumatoid arthritis, unspecified (ICD_10 - M06.9) Active Metoprolol Succinate ER 50 MG Tablet Extended Release 24 Hour 1 tablet Oral Once a day Active Premarin 0.625 MG Tablet 1 tablet Oral Once a day Active busPIRone HCl 10 MG Tablet 1 tablet Oral Twice a day Active Clopidogrel Bisulfate 75 MG Tablet 1 tablet Oral Once a day; Duration: 30 days Active Vitamin D (Ergocalciferol) 1.25 MG (52275 UT) Capsule 1 capsule Oral Once a day Active Aspirin Low Dose 81 MG Tablet Chewable CHEW AND SWALLOW 1 TABLET BY MOUTH ONCE DAILY Oral; Duration: 30 Days Active Methotrexate Sodium 2.5 MG Tablet as directed Oral Active predniSONE 5 MG Tablet 1 tablet Orally Once a day; Duration: 30 day(s) 09/11/2023 Pain in joints of unspecified hand (ICD_10 - M25.549) Active Albuterol Sulfate (2.5 MG/3ML) 0.083% Nebulization Solution INHALE 1 VIAL VIA NEBULIZER EVERY 4-6 HOURS NEEDED FOR SHORTNESS OF BREATH OR WHEEZING Inhalation; Duration: 10 Active Gelzhcgzmk-TDMP-Gfqyejen 50-325-40 MG Tablet TAKE 1 TABLET BY MOUTH EVERY 4 HOURS NEEDED FOR MIGRAINE Oral; Duration: 1 Active Atorvastatin Calcium 10 MG Tablet TAKE 1 TABLET BY MOUTH DAILY Oral; Duration: 90 Active Social History Tobacco Use: Social History [...] She is . The patient denies tobacco, alcohol or illicit drug abuse. 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 (Z79.891) Added On:2023 Active confirmed Problem Hand joint pain () Pain in joints of right hand (M25.541) Added On:2023 Active confirmed Problem Hand joint pain () Pain in joints of left hand (M25.542) Added On:2023 Active confirmed Problem Hand joint pain () Pain in joints of unspecified hand (M25.549) Added On:2023 Active confirmed Vital Signs Vital Sign Value Notes Appt Date Heart Rate 93 /min 02/15/2025 Respiratory Rate 20 /min 02/15/2025 Blood pressure diastolic 84 mm Hg 05/2024 Height 5 ft 1 in in 02/15/2025 Blood pressure systolic 186 mm Hg 12/0 05/2024 Weight 159 lbs 02/15/2025 BMI 30.04 kg/m2 02/15/2025 Encounters Date Time Type Facility Location Provider Diagnosis 09:00 AM Office Visit, Est Pt., Level 4 (72414) [facility] [address] [facility] [place] [address] Shamar Stynowick Pain in joints of right hand M25.541 ; Rheumatoid arthritis, unspecified M06.9 ; Pain in joints of unspecified hand M25.549 ; Erosive (osteo)arthriti s M15.4 and rodent exterminator (current) use of opiate analgesic Z79.891 5 08:30 AM Office Visit, Est Pt., Level 4 (87469) [facility] [address] [facility] [place] [address] Shamar Stynowick Pain in joints of right hand M25.541 ; Rheumatoid arthritis, unspecified M06.9 ; Pain in joints of unspecified hand M25.549 ; Erosive (osteo)arthriti s M15.4 and rodent exterminator (current) use of opiate analgesic Z79.891 5 08:30 AM Office Visit, Est Pt., Level 4 (35159) [facility] [address] [place] [address] Shamar Stynowick Pain in joints of right hand M25.541 ; Rheumatoid arthritis, unspecified M06.9 ; Pain in joints of unspecified hand M25.549 ; Erosive (osteo)arthriti s M15.4 and rodent exterminator (current) use of opiate analgesic Z79.891 5 10:00 AM Office Visit, Est Pt., Level 4 (66328) [facility] [address] [facility] [place] [address] Shamar Stynowick Pain in joints of right hand M25.541 ; Rheumatoid arthritis, unspecified M06.9 ; Pain in joints of unspecified hand M25.549 ; Erosive (osteo)arthriti s M15.4 and group home (current) use of opiate analgesic Z79.891 5 10:00 AM Office Visit, Est Pt., Level 4 (90711) [facility] [address] [facility] [place] [address] Shamar Stynowick Pain in joints of right hand M25.541 ; Rheumatoid arthritis, unspecified M06.9 ; Pain in joints of unspecified hand M25.549 ; Erosive (osteo)arthriti s M15.4 and rodent exterminator (current) use of opiate analgesic Z79.891 5 09:15 AM Office Visit, Est Pt., Level 4 (94344) [facility] [address] [facility] [place] [address] Shamar Stynowick Pain in joints of right hand M25.541 ; Rheumatoid arthritis, unspecified M06.9 ; Pain in joints of unspecified hand M25.549 ; Erosive (osteo)arthriti s M15.4 and rodent exterminator (current) use of opiate analgesic Z79.891 5 09:15 AM Office Visit, Est Pt., Level 4 (92207) [facility] [address] [facility] [place] [address] Shamar Stynowick Pain in joints of right hand M25.541 ; Rheumatoid arthritis, unspecified M06.9 ; Pain in joints of unspecified hand M25.549 ; Erosive (osteo)arthriti s M15.4 and rodent exterminator (current) use of opiate analgesic Z79.891 5 10:15 AM Office Visit, Est Pt., Level 4 (47585) [facility] [address] [place] [address] Shamar Stynowick Pain in joints of right hand M25.541 ; Rheumatoid arthritis, unspecified M06.9 ; Pain in joints of unspecified hand M25.549 ; Erosive (osteo)arthriti s M15.4 and group home (current) use of opiate analgesic Z79.891 5 10:00 AM Office Visit, Est Pt., Level 4 (22941) [facility] [address] [facility] [place] [address] Shamar Stynowick Pain in joints of right hand M25.541 ; Rheumatoid arthritis, unspecified M06.9 ; Pain in joints of unspecified hand M25.549 ; Erosive (osteo)arthriti s M15.4 and rodent exterminator (current) use of opiate analgesic Z79.891 5 09:15 AM Office Visit, Est Pt., Level 4 (26306) [facility] [address] [facility] [place] [address] Shamar Stynowick Pain in joints of right hand M25.541 ; Rheumatoid arthritis, unspecified M06.9 ; Pain in joints of unspecified hand M25.549 ; Erosive (osteo)arthriti s M15.4 and rodent exterminator (current) use of opiate analgesic Z79.891 5 10:00 AM Office Visit, Est Pt., Level 4 (93791) [facility] [address] [place] [address] Shamar Stynowick Pain in joints of right hand M25.541 ; Rheumatoid arthritis, unspecified M06.9 ; Pain in joints of unspecified hand M25.549 ; Erosive (osteo)arthriti s M15.4 and group home (current) use of opiate analgesic Z79.891 5 02:15 PM Office Visit, Est Pt., Level 4 (45106) [facility] [address] [place] [address] Shamar Stynowick Pain in joints of right hand M25.541 ; Rheumatoid arthritis, unspecified M06.9 ; Pain in joints of unspecified hand M25.549 ; Erosive (osteo)arthriti s M15.4 and group home (current) use of opiate analgesic Z79.891 Assessments Encounter Date Diagnosis (ICD Code) Assessment Notes Treatment Notes Section Notes 03/28/2024 Rheumatoid arthritis, unspecified (ICD-10 - M06.9) [...] to fully comply with the above. The [place] PDMP were reviewed and were appropriate 03/28/2024 [...] to fully comply with the above. The [place] PDMP were reviewed and were appropriate 06/22/2024 Pain in joints of right hand (ICD-10 - M25.541) 07/22/2024 Pain in joints of right hand (ICD-10 - M25.541) 08/22/2024 Pain in joints of right hand (ICD-10 - M25.541) 09/19/2024 Pain in joints of right hand (ICD-10 - M25.541) 10/19/2024 Pain in joints of right hand (ICD-10 - M25.541) 11/18/2024 Pain in joints of right hand (ICD-10 - M25.541) 12/16/2024 Pain in joints of right hand (ICD-10 - M25.541) 01/17/2025 Pain in joints of right hand (ICD-10 - M25.541) 02/15/2025 Pain in joints of right hand (ICD-10 - M25.541) 01/17/2025 Rheumatoid arthritis, unspecified (ICD-10 - M06.9) The [...] to fully comply with the above. The [place] PDMP were reviewed and were appropriate 02/15/2025 Pain in joints of unspecified hand (ICD-10 - M25.549) 01/17/2025 Pain in joints of unspecified hand (ICD-10 - M25.549) 02/15/2025 Rheumatoid arthritis, unspecified (ICD-10 - M06.9) The [...] to fully comply with the above. The [place] PD[place] were reviewed and were appropriate 12/16/2024 Rheumatoid arthritis, unspecified (ICD-10 - M06.9) The [...] to fully comply with the above. The [facility] PDMP were reviewed and were appropriate 12/16/2024 Pain in joints of unspecified hand (ICD-10 - M25.549) 05/24/2024 Rheumatoid arthritis, unspecified (ICD-10 - M06.9) 10/19/2024 Pain in joints of unspecified hand (ICD-10 - M25.549) 11/18/2024 Rheumatoid arthritis, unspecified (ICD-10 - M06.9) The [...] to fully comply with the above. The [place] PD[place] were reviewed and were appropriate 09/19/2024 Pain in joints of unspecified hand (ICD-10 - M25.549) 10/19/2024 Rheumatoid arthritis, unspecified (ICD-10 - M06.9) The [...] to fully comply with the above. The [facility] PDMP were reviewed and were appropriate 08/22/2024 Pain in joints of unspecified hand (ICD-10 - M25.549) 09/19/2024 Rheumatoid arthritis, unspecified (ICD-10 - M06.9) The [...] to fully comply with the above. The [facility] PDMP were reviewed and were appropriate 07/22/2024 Pain in joints of unspecified hand (ICD-10 - M25.549) 08/22/2024 Rheumatoid arthritis, unspecified (ICD-10 - M06.9) The [...] to fully comply with the above. The [facility] PDMP were reviewed and were appropriate 06/22/2024 [...] to fully comply with the above. The [place] PDMP were reviewed and were appropriate 05/24/2024 [...] to fully comply with the above. The [facility] PDMP were reviewed and were appropriate 04/26/2024 Pain in joints of unspecified hand (ICD-10 - M25.549) 03/28/2024 Pain in joints of unspecified hand [...] to fully comply with the above. The [facility] PDMP were reviewed and were appropriate 04/26/2024 Erosive (osteo)arthritis (ICD-10 - M15.4) 03/28/2024 Erosive (osteo)arthritis (ICD-10 - M15.4) 06/22/2024 Erosive (osteo)arthritis (ICD-10 - M15.4) 07/22/2024 Erosive (osteo)arthritis (ICD-10 - M15.4) 08/22/2024 Erosive (osteo)arthritis (ICD-10 - M15.4) 09/19/2024 Erosive (osteo)arthritis (ICD-10 - M15.4) 10/19/2024 Erosive (osteo)arthritis (ICD-10 - M15.4) 05/24/2024 Erosive (osteo)arthritis (ICD-10 - M15.4) 11/18/2024 Pain in joints of unspecified hand (ICD-10 - M25.549) 12/16/2024 Erosive (osteo)arthritis (ICD-10 - M15.4) 02/15/2025 Erosive (osteo)arthritis (ICD-10 - M15.4) 01/17/2025 Erosive (osteo)arthritis (ICD-10 - M15.4) 01/17/2025 group home (current) use of opiate analgesic (ICD-10 - Z79.891) The patient submitted a urine sample for drug screening to ensure compliance. 02/15/2025 rodent exterminator (current) use of opiate analgesic (ICD-10 - Z79.891) 12/16/2024 rodent exterminator (current) use of opiate analgesic (ICD-10 - Z79.891) 05/24/2024 group home (current) use of opiate analgesic (ICD-10 - Z79.891) 10/19/2024 group home (current) use of opiate analgesic (ICD-10 - Z79.891) The patient submitted a urine sample for drug screening to ensure compliance. 11/18/2024 Erosive (osteo)arthritis (ICD-10 - M15.4) 09/19/2024 rodent exterminator (current) use of opiate analgesic (ICD-10 - Z79.891) 08/22/2024 group home (current) use of opiate analgesic (ICD-10 - Z79.891) 07/22/2024 rodent exterminator (current) use of opiate analgesic (ICD-10 - Z79.891) The patient submitted a urine sample for drug screening to ensure compliance. 06/22/2024 rodent exterminator (current) use of opiate analgesic (ICD-10 - Z79.891) 03/28/2024 rodent exterminator (current) use of opiate analgesic (ICD-10 - Z79.891) 04/26/2024 rodent exterminator (current) use of opiate analgesic (ICD-10 - Z79.891) The patient submitted a urine sample for drug screening to ensure compliance. 11/18/2024 group home (current) use of opiate analgesic (ICD-10 - Z79.891) 03/28/2024 Other The above-named patient was evaluated [...] with Patient and Medical Decision Makin minutes 08/22/2024 Other The above-named patient was evaluated in [...] with Patient and Medical Decision Makin minutes 09/19/2024 Other The above-named patient was evaluated in [...] with Patient and Medical Decision Makin minutes 10/19/2024 Other The above-named patient was evaluated in [...] with Patient and Medical Decision Makin minutes 11/18/2024 Other The above-named patient was evaluated in [...] with Patient and Medical Decision Makin minutes 12/16/2024 Other The above-named patient was evaluated in [...] with Patient and Medical Decision Makin minutes 01/17/2025 Other The above-named patient was evaluated in [...] with Patient and Medical Decision Makin minutes 02/15/2025 Other The above-named patient was evaluated in [...] with Patient and Medical Decision Makin minutes Plan Of Treatment Pending Test Test Name Order Date [facility] Results 07/14/2023 [facility] Results 11/04/2023 [facility] Results 01/29/2024 [facility] Results 04/26/2024 [facility] Results 07/22/2024 [facility] Results 10/19/2024 [facility] Results 01/17/2025 Next Appt Details Provider Name:Shamar Muniz Afia sterling, 2025 11:30:00 AM, [address] [place], [address], Insurance Providers Payer Name Payer Address Payer Phone Subscriber Number Group Number Insured Name Patient Relationship to Insured Coverage Start Date Coverage End Date [facility] [address] [place] [address] [phone] [id number] RAJESH MORRIS Self - patient is the insured Medical (General) History Medical History History ICD Code COPD Hypertension Anxiety Migraine Gout Anemia Insomnia Rheumatoid arthritis 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
[2025-03-10 13:13] VITALS: BP 112/53; PULSE 90; RESP 20; TEMP 36.5; O2SAT 98
--- NOTE | 2025-03-10 13:29 | ED_ITS ---
HPI - Extremity Injury (Lower) General Chief Complaint: Extremity Injury, Lower Stated Complaint: Right Leg Injury Time Seen by Provider: 03/10/25 13:20 Source: patient Mode of arrival: ambulatory Limitations: no limitations History of Present Illness HPI Narrative: Whitney is a 69-year-old female patient presenting to the clinic today with complaints of right leg injury. 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 States the area is becoming more painful over the last few days. Area is draining some purulent discharge and is red. Related Data Home Medications ?Medication ?Instructions ?Recorded ?Confirmed ?Last Taken ?Type prednisone 5 mg tablet 5 mg PO DAILY 09/03/2302/0210/05/23 History hydrocodone 7.5 mg-acetaminophen 1 tablet PO Q6H PRN P ain 10/02/23 02/02/25 10/05/23 History 325 mg tablet xzrmgyjpyz-hmrbvvmmluxkb-sabfdixr 1 tablet PO Q6H PRN headache 02/04/24 02/02/25 Unknown History 50 mg-325 mg-40 mg tablet atorvastatin 10 mg tablet 10 mg PO QPM 04/16/24 Unknown History cholecalciferol (vitamin D3) 1,250 1,250 mcg PO WEEKLY 04/16/24 02/02/25 Unknown History mcg (50,000 unit) capsule aspirin 81 mg tablet 81 mg PO DAILY 02/02/2501/15 Unknown History Allergies Allergy/AdvReac Type Severity Reaction Status Date / Time metoclopramide Allergy Intermediate Shakiness Verified 03/10/25 13:09 nalbuphine Allergy Intermediate Rash Verified 03/10/25 13:09 prochlorperazine Allergy Intermediate Chest Verified 03/10/25 13:09 tightness promethazine Allergy Intermediate Rash Verified 03/10/25 13:09 sumatriptan Allergy Intermediate chest Verified 03/10/25 13:09 tightness meclizine AdvReac Intermediate lethargic Verified 03/10/25 13:09 Review of Systems Review of Systems: Pertinent positives per HPI. Patient denies any fever, chills, rash, headache, visual changes, dizziness, cough, runny nose, sore throat, shortness of breath, chest pain, palpitations, nausea, vomiting, diarrhea, constipation, abdominal pain, or any urinary issues. [facility] Past Medical History Medical History Rheumatoid arthritis Obesity (BMI 30.0-34.9) Depression Impacted cerumen of both ears Breast cancer screening by mammogram normal mammogram 07/01/2024. Hypokalemia Potassium normal at 3.8 on 07/13/2024. BMI 29.0-29.9,adult Nausea and vomiting Colon cancer screening normal colonoscopy 10/06/2023 with recheck in 10 years. Renal insufficiency (09/18/23) BUN 43, creatinine 1.97, GFR 27 In the ER on 09/18/2023. possible dehydration. BUN 31, creatinine 0.92, GFR greater than 60 on 11/13/2023. BUN 22, creatinine 1.0, GFR 61 on 07/13/2024. Frequent falls At high risk for falls Iron deficiency anemia, unspecified hemoglobin 8.4 on 08/29/2023. Hemoglobin 8.7 with iron 23 with 7% saturation and ferritin 25 with vitamin B12 greater than 2000 and folic acid 8.6 on 09/03/2023. Hemoglobin 10.6 on 09/18/2023. Iron 71, 19% saturation, ferritin 12, hemoglobin 10.1 on 11/13/2023. Renal stone (~05/2023) 2 mm stone mid left kidney on CT on 05/29/2023. GERD (gastroesophageal reflux disease) EGD 10/06/2023 with normal esophagus, mild gastritis. CVA (cerebral vascular accident) (05/19/23) Left-sided weakness and slurred speech with vertigo 05/19/2023. CTA of head and neck 05/19/2023 with chronic multiple small cortical infarcts right parietal and posterior frontal areas. MRI without contrast 05/20/2023 with chronic microvascular ischemic type infarcts. CT of the brain 02/20/2024 with encephalomalacia right parietal area with hematoma. Paroxysmal atrial fibrillation (~05/2023) Mixed hyperlipidemia total cholesterol 160, triglycerides 76, HDL 58, LDL 87 with ratio 2.8 on 05/20/2023. Cholesterol 153, HDL 82, triglycerides 101, LDL 53 with ratio 1.9 on 11/13/2023. Cholesterol 159, triglycerides 89, HDL 57, LDL 85 on 02/20/2024. Numbness in both hands Numbness in feet Alteration in speech COPD (chronic obstructive pulmonary disease) (~2022) PFT on 02/09/2023 with moderate obstructive defect without improvement with bronchodilator. Diastolic dysfunction without heart failure (~02/09/23) grade 2 diastolic dysfunction with ejection fraction 65-70%, mild pulmonary hypertension, mild mitral valve regurgitation, trace tricuspid valve regurgitation on echo on 02/09/2023. Tremor (~2022) left upper extremity Vertigo COVID Skin tear of left upper extremity Benign paroxysmal positional vertigo due to bilateral vestibular disorder (~10/24/22) Acute pain of right foot (10/27/22) Possible stress fracture . X-ray of the right foot on 10/30/2022 revealed mild arthritis with a 2 mm linear foreign body at the base of the 3rd toe. Abnormal fasting glucose (09/24/22) glucose elevated at 107 on 09/24/2022. fasting glucose 91 with hemoglobin A1c 5.5 on 05/19/2023. Glucose 82, hemoglobin A1c 6.2, microalbumin ratio of 2 with GFR over 60 on 11/13/2023. glucose 111, hemoglobin A1c 6.5 on 07/13/2024 with GFR 61. At low risk for fall Abrasion hip/leg (~08/2022) significant abrasion wound to the anterior aspect left lower leg BMI 28.0-28.9,adult Persistent dyspnea after COVID-19 (03/24/22) with abnormal CT of the chest 02/02/2022.Repeat high-resolution CT of the chest on 04/17/2022 revealed resolution of previously described infectious changes. Normal CT with old granulomatous changes noted. BMI 27.0-27.9,adult COVID-19 (01/22/22) BMI 26.0-26.9,adult BMI 25.0-25.9,adult Overweight (BMI 25.0-29.9) (~01/2021) Hypertension BMI 24.0-24.9, adult Abscessed tooth Exposure to COVID-19 virus Abnormal serum iron level Total iron elevated at 217 with 58% saturation and ferritin normal at 32 on 11/25/2021 with hemoglobin 14.3. iron 149 with 44% saturation and ferritin 28 on 09/24/2022. Anemia Hemoglobin normal at 14.3 with vitamin B12 770 and folic acid 11.3 with iron 217 on 11/25/2021. Hemoglobin 13.3, iron 149, vitamin B12 612, folic acid 12.1 on 09/24/2022. Hemoglobin 11.7 on 05/21/2023. hemoglobin 12.8 on 05/29/2023. hemoglobin 10.6 on 07/06/2023. hemoglobin 8.4 on 08/29/2023. Hemoglobin 10.1 on 11/13/2023. Hemoglobin 9.7 on 02/20/2024. Acute bronchitis UTI (urinary tract infection) Cough Abnormal mammogram normal mammogram on 01/15/2021 with recheck in 1 year. mammogram normal 03/19/2022 with recheck in 1 year, Mammogram 07/01/2024 with no changes. Recheck annually. Carpal tunnel syndrome Inflammatory arthritis (~2014) Bilateral hand pain Vitamin D insufficiency Level slightly low at 29 on 09/24/2022. Seasonal allergic rhinitis Insomnia Chronic anxiety Tinnitus Arthritis Acute non-recurrent maxillary sinusitis Surgical History Surgical History H/O: hysterectomy Family History Family History Mother Patient's mother is , Onset Age: 86 Father Family history of malignant neoplasm of brain, Onset Age: 58 Social History Social History Social History: Caffeine-coffee, soda Smoking packs per day: 0 Smoking cigarettes per day: 0.0 Years smoked: 0 Smoking pack-years: 0.00 Smoking status: Never smoker Second hand tobacco smoke exposure: No Alcohol intake: never Substance use: never Substance use type: does not use Lack of Transportation: No Lack of Food: Never True Current Housing: I Have Housing Concerned About Future Housing: No Difficulty Paying Gas/Electric Bills: No Difficulty Paying for Meds: No Currently Unemployed: No Education: High School Diploma/GED Difficulty w/ Childcare or Family Care: No Living arrangements: with family Spiritual care concerns: No Comments At the time of my signature, I reviewed and agree with the nursing past medical, surgical, social, and family history. There is no relevant family history pertinent to the patient complaint. Exam Narrative: General: Well-developed, well nourished, in no apparent distress Head: Normocephalic, atraumatic. Cardio: Regular rate and rhythm, s1 and s2 normal, no murmur appreciated. Resp: Clear to auscultation bilaterally, no rhonchi, rales, wheezing or rubs. Integumentary: [place], warm, and dry, non repairable skin tear to the right lower anterior extremity measuring 4 x 3 cm with a blister filled with none discharge measuring 5 x 4-1/2 cm, blister was expressed as it was already draining and a wound culture was obtained and sent to the lab. Localized redness mild erythema, no induration or palpable abscess Course Course Level of Care: Express Care Visit Vital Signs Vital signs: Vital Signs Temperature 36.5 C 03/10/25 13:13 Pulse Rate 90 03/10/25 13:13 Respiratory Rate 20 03/10/25 13:13 Blood Pressure 112/53 L 03/10/25 13:13 Pulse Oximetry 98 03/10/25 13:13 Oxygen Delivery Room Air 03/10/25 13:13 Temperature 36.5 C 03/10/25 13:13 Pulse Rate 90 03/10/25 13:13 Respiratory Rate 20 03/10/25 13:13 Blood Pressure 112/53 L 03/10/25 13:13 Pulse Oximetry 98 03/10/25 13:13 Oxygen Delivery Room Air 03/10/25 13:13 [facility] MDM Narrative Medical decision making narrative: At the time of visit patient is resting comfortably on the exam table. Patient appears to be nontoxic. Complaints of right leg injury. 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 States the area is becoming more painful over the last few days. Area is draining some purulent discharge and is red. Non repairable skin tear to the right lower anterior extremity measuring 4 x 3 cm with a blister filled with none discharge measuring 5 x 4-1/2 cm, blister was expressed as it was already draining and a wound culture was obtained and sent to the lab. Localized redness mild erythema, no induration or palpable abscess. X-ray of the right leg was ordered. Diagnostics: X-ray of the right tib-fib was negative for any sign of fracture or malalignment. Labs: Wound culture was sent to the lab-right anterior leg drainage. Plan: I suspect patient has skin tear with infection. Wound culture was sent to the lab. Will place patient on doxycycline and mupirocin cream. Recommend follow-up with PCP in 2-3 days for wound check. Supportive measures were discussed with the patient and they voiced understanding discharge instructions and agrees to treatment plan. Return precautions reviewed Differential Diagnosis Differential Diagnosis: Differential diagnostic considerations for skin/abscess/foreign body issues include abscess of skin or subcutaneous tissue, viral exanthem, dermatophytosis, urticaria, herpes zoster, allergic reaction to drug, cellulitis, eczema, insect bites, impetigo, contact dermatitis, vasculitis. Imaging Data Radiologist's impression: ITS Impressions Tibia/Fibula X-Ray 03/10/25 13:45 IMPRESSION: 1: NO ACUTE BONE OR JOINT ABNORMALITY IDENTIFIED. Discharge Plan Discharge Clinical Impression: Skin tear, Bacterial skin infection Patient Disposition: Home Condition: Stable Instructions: Antibiotic Form, Skin Tear (ED) Additional Instructions: X-ray of the right tib-fib is negative for any sign of fracture or malalignment. Wound culture was obtained and sent to the lab. I suspect you have a skin tear with skin infection. Prescription for doxycycline and mupirocin cream was sent to the pharmacy. Dressing changes twice daily x1 week May take Tylenol as needed for pain or fever. Keep wound clean and dry Watch for signs and symptoms of worsening infection-increase in redness, streaking, swelling, purulent discharge, or increase in pain. Go to the emergency room if symptoms worsen Follow-up with PCP in 2-3 days for wound check Patient Language: [place]ian Prescriptions: New doxycycline monohydrate 100 mg capsule 100 mg PO BID 7 Days Qty: 14 0RF mupirocin [Centany] 2 % ointment 1 applic topical BID 7 Days Qty: 22 0RF No Action atorvastatin 10 mg tablet 10 mg PO QPM cholecalciferol (vitamin D3) 1,250 mcg (50,000 unit) capsule 1,250 mcg PO WEEKLY mupirocin [Centany] 2 % ointment 1 applic topical DAILY Qty: 22 0RF qjathggdcr-qhvdebzskszcy-jrhk 50-325-40 mg tablet 1 tablet PO Q6H PRN (Reason: headache) Patient Comments: prescribed by neurologist pantoprazole 40 mg tablet,delayed release (DR/EC) 40 mg PO QAM Qty: 30 11RF prednisone 5 mg tablet 5 mg PO DAILY Patient Comments: prescribed by Rheumatology potassium chloride [Klor-Con M20] 20 mEq tablet,ER particles/crystals 20 meq PO DAILY PRN (Reason: take with lasix) Qty: 30 5RF buspirone 10 mg tablet 10 mg PO BID Qty: 60 11RF metoprolol succinate 50 mg tablet extended release 24 hr 50 mg PO DAILY Qty: 90 3RF aspirin 81 mg tablet 81 mg PO DAILY hydrocodone-acetaminophen 7.5-325 mg tablet 1 tablet PO Q6H PRN (Reason: Pain) ipratropium-albuterol 0.5 mg-3 mg(2.5 mg base)/3 mL solution for nebulization 3 ml inhalation QID PRN (Reason: shortness of breath) Qty: 360 3RF amitriptyline 10 mg tablet 20 mg PO . q.h.s. Qty: 60 11RF ondansetron HCl 8 mg tablet 8 mg PO Q8H PRN (Reason: nausea and vomiting) Qty: 30 5RF furosemide 40 mg tablet 40 mg PO QAM PRN (Reason: edema) Qty: 90 1RF albuterol sulfate 90 mcg/actuation HFA aerosol inhaler 2 puff INHALATION Q4H PRN (Reason: Shortness Of Breath Or Wheezing) Qty: 8.5 11RF qiipdjvklm-myptjjxm-ozckssfpig 160-9-4.8 mcg/actuation HFA aerosol inhaler 2 inh inhalation BID Qty: 10.7 11RF meclizine 25 mg tablet 25 mg PO TID PRN (Reason: dizziness) Qty: 60 5RF prednisone 10 mg tablet See Rx Instructions PO DAILY Qty: 34 0RF Rx Instructions: 4 tabs daily x 4 days; then 3 tabs daily x 3 days, then 2 tabs daily x 3 days, then 1 tab daily x 3 days. (DME) BD Integra Syringe 3 mL 25 gauge x 1 syringe See Rx Instructions .Route Qty: 12 0RF Rx Instructions: use to inject B12 once monthly cyanocobalamin (vitamin B-12) 1,000 mcg/mL solution 1,000 mcg SUB-Q MONTHLY Qty: 3 4RF doxycycline hyclate 100 mg tablet 100 mg PO DAILY Qty: 7 0RF Follow-up/Referrals: Fernando Rucker MD [Primary Care Provider, [facility]] Time of Disposition: 13:37 Quality NIHSS Nursing Documentation ED NIHSS nursing documentation: reviewed/agree
== END 2025-03-10 14:01 | disposition home or self-care (01) ==
PROVIDERS: Emergency Provider Nurse Practitioner Family; PCP Family Medicine
DX: S81.811A Laceration without foreign body, right lower leg, initial encounter (principal); L08.9 Local infection of the skin and subcutaneous tissue, unspecified; B96.89 Other specified bacterial agents as the cause of diseases classified elsewhere; W22.8XXA Striking against or struck by other objects, initial encounter; I10 Essential (primary) hypertension; I48.0 Paroxysmal atrial fibrillation; E78.2 Mixed hyperlipidemia; M06.9 Rheumatoid arthritis, unspecified; J44.9 Chronic obstructive pulmonary disease, unspecified; M19.90 Unspecified osteoarthritis, unspecified site; K21.9 Gastro-esophageal reflux disease without esophagitis; F32.A Depression, unspecified; E55.9 Vitamin D deficiency, unspecified; F41.9 Anxiety disorder, unspecified; Z79.82 Long term (current) use of aspirin; Z86.73 Personal history of transient ischemic attack (TIA), and cerebral infarction without residual deficits
CPT/HCPCS: 73590; 87070; 87147; 87186; 87205; 99213; G0463